=== PATIENT | female | born 1935 | race Caucasian/White ===

== ENCOUNTER 2020-08-12 10:19 | Outpatient (RCR) | payer MEDICARE, SELFPAY | END 2020-09-04 12:05 | disposition home or self-care (01) | LOC: HO.WCC 10:19 | PROVIDERS: PCP Internal Medicine; Visit Provider Physician Assistant | DX: S01.01XA Laceration without foreign body of scalp, initial encounter (principal); C44.42 Squamous cell carcinoma of skin of scalp and neck; E11.42 Type 2 diabetes mellitus with diabetic polyneuropathy; L57.0 Actinic keratosis; Z79.4 Long term (current) use of insulin | CPT/HCPCS: 11042; 11106; 99213 ==

== ENCOUNTER 2020-08-20 14:41 | Outpatient (REF) | payer MEDICARE, SELFPAY ==
[2020-08-20 15:40] LABS: MANUAL DIFF FLAG NO
[2020-08-20 15:47] LABS: Basophils Percent Auto 0.2 % (0-2); Eosinophils Absolute Auto 0.1 X10*3/uL (0.0-0.4); Eosinophils Percent Auto 1.2 % (0-4); Hematocrit 32.5 % (37-47); Hemoglobin 10.5 g/dl (12.0-16.0); Imm Gran Abs Auto 0.03 X10*3/uL (0.00-0.03); Imm Gran Pct Auto 0.4 % (0.0-0.4); Lymphocytes Absolute Auto 1.4 X10*3/uL (1.2-4.9); Mean Corpuscular HGB Conc 32.3 g/dl (31.0-35.0); Mean Corpuscular Volume 92.9 fL (80-98); Mean Platelet Volume 12.7 fL (9.4-12.3); Monocytes Absolute Auto 0.4 X10*3/uL (0.1-1.2); Monocytes Percent Auto 5.2 % (2-11); Neutrophils Absolute Auto 6.6 X10*3/uL (2.0-8.3); Platelet Count 216 X10*3/uL (160-400); Red Cell Distribution Width 13.6 % (11.0-16.0); White Blood Count 8.5 X10*3/uL (4.8-10.8)
[2020-08-20 16:14] LABS: Albumin Level 4.4 g/dL (3.5-5.0); Anion Gap 16 (12-20); Blood Urea Nitrogen 56 mg/dL (9-16); Calcium 9.8 mg/dL (8.4-10.2); Carbon Dioxide 23 mmol/L (22-29); Chloride 104 mmol/L (96-108); Estimated Glomerular Filt Rate 23; Magnesium 1.8 mg/dL (1.6-2.6); Phosphorus 2.5 mg/dL (2.7-4.5); Potassium 4.5 mmol/l (3.3-5.1); Sodium 138 mmol/L (135-145)
[2020-08-20 16:32] LABS: Vitamin D 25-OH Total 18.1 ng/mL (>30)
[2020-08-20 16:47] LABS: Glucose Urine UA 100 MG/DL (NEG); Leukocyte Esterase Urine NEG (NEG); Nitrite Urine NEG (NEG); PH 5.5 (5.0-8.0); Specific Gravity - Urine 1.015 (1.005-1.025); Urine Blood NEG (NEG); Urine Ketones NEG (NEG); Urine Protein NEG (NEG-TRACE)
[2020-08-20 16:48] LABS: Appearance Urine HAZY; Color Urine YELLOW
[2020-08-20 16:55] LABS: Bacteria Urine 1+ /LPF; RBC Urine 0 /HPF (0); Squamous Epithelial Cell Urine 1+ /LPF; WBC Urine 0 /HPF (0-4)
[2020-08-20 16:56] LABS: Renal w Reflex-LAB USE ONLY Order Verified
[2020-08-20 17:14] LABS: Microalbum/Creatinine Ratio Ur 49.1 ug/mg cr
[2020-08-20 17:43] LABS: Renal w Reflex Lab Use Only Order verified
[2020-08-20 17:55] LABS: Creatinine Urine 50.74 mg/dL; Total Protein Urine Random < 7 mg/dL (<12)
[2020-08-21 14:42] LABS: Complement C3 156 mg/dL
[2020-08-21 18:33] LABS: Calcium (PTHI) 10.2 mg/dL (8.6-10.4); PTHI 104 pg/mL (14-64)
[2020-08-22 21:47] LABS: Anti Nuclear Antibody Screen POSITIVE (NEGATIVE); Anti Nuclear Antibody Titer 1:40 titer
[2020-08-24 08:21] LABS: IgA 462 mg/dL (70-320); IgG 1021 mg/dL (600-1540); IgM 58 mg/dL (50-300)
== END 2020-08-20 14:42 | disposition home or self-care (01) ==
LOC: HO.LAB 14:41
PROVIDERS: PCP Internal Medicine; Visit Provider Internal Medicine Nephrology
DX: E11.9 Type 2 diabetes mellitus without complications (principal); R80.9 Proteinuria, unspecified; E11.21 Type 2 diabetes mellitus with diabetic nephropathy; I13.10 Hypertensive heart and chronic kidney disease without heart failure, with stage 1 through stage 4 chronic kidney disease, or unspecified chronic kidney disease; N18.30 Chronic kidney disease, stage 3 unspecified
CPT/HCPCS: 36415; 80051; 81001; 82040; 82043; 82306; 82310; 82565; 82784; 83735; 83970; 84100; 84156; 84520; 85025; 86038; 86039; 86160; 86334; 88305

== ENCOUNTER 2020-09-25 | Outpatient (REF) | payer MEDICARE, SELFPAY | END 2020-09-25 00:01 | disposition home or self-care (01) | LOC: HO.VC | PROVIDERS: Visit Provider Internal Medicine | DX: Z23 Encounter for immunization (principal) | CPT/HCPCS: 0011A ==

== ENCOUNTER 2020-10-22 | Outpatient (REF) | payer MEDICARE, SELFPAY | END 2020-10-22 00:01 | disposition home or self-care (01) | LOC: HO.VC | PROVIDERS: Visit Provider Internal Medicine | DX: Z23 Encounter for immunization (principal) | CPT/HCPCS: 0012A ==

== ENCOUNTER 2021-01-06 12:56 | Outpatient (RCR) | payer MEDICARE, SELFPAY | END 2021-04-25 12:38 | disposition home or self-care (01) | LOC: HO.WCC 12:56 | PROVIDERS: Visit Provider Physician Assistant | DX: E11.622 Type 2 diabetes mellitus with other skin ulcer (principal); I87.311 Chronic venous hypertension (idiopathic) with ulcer of right lower extremity; L97.211 Non-pressure chronic ulcer of right calf limited to breakdown of skin; E11.40 Type 2 diabetes mellitus with diabetic neuropathy, unspecified; C44.300 Unspecified malignant neoplasm of skin of unspecified part of face; Z79.4 Long term (current) use of insulin | CPT/HCPCS: 11042; 11045; 15271; 97597; 99212; Q4101; Q4196 ==

== ENCOUNTER 2021-01-29 11:24 | Outpatient (REF) | payer MEDICARE, SELFPAY ==
[2021-01-29 11:56] LABS: MANUAL DIFF FLAG NO
[2021-01-29 12:02] LABS: Basophils Percent Auto 0.3 % (0-2); Eosinophils Absolute Auto 0.2 X10*3/uL (0.0-0.4); Eosinophils Percent Auto 1.7 % (0-4); Hemoglobin 10.5 g/dl (12.0-16.0); Imm Gran Abs Auto 0.05 X10*3/uL (0.00-0.03); Imm Gran Pct Auto 0.5 % (0.0-0.4); Lymphocytes Absolute Auto 1.4 X10*3/uL (1.2-4.9); Lymphocytes Percent Auto 14.8 % (20-40); Mean Corpuscular HGB Conc 31.8 g/dl (31.0-35.0); Mean Corpuscular Hemoglobin 29.7 pg (27.0-33.0); Mean Corpuscular Volume 93.5 fL (80-98); Mean Platelet Volume 12.8 fL (9.4-12.3); Monocytes Absolute Auto 0.5 X10*3/uL (0.1-1.2); Neutrophils Absolute Auto 7.2 X10*3/uL (2.0-8.3); Neutrophils Percent Auto 77.7 % (45-73); Platelet Count 231 X10*3/uL (160-400); Red Blood Count 3.53 X10*6/uL (4.20-5.50); Red Cell Distribution Width 14.3 % (11.0-16.0); White Blood Count 9.2 X10*3/uL (4.8-10.8)
[2021-01-29 12:35] LABS: Alanine Aminotransferase 12 U/L (0-31); Albumin Level 4.1 g/dL (3.5-5.0); Alkaline Phosphatase 59 U/L (39-117); Anion Gap 16 (12-20); Aspartate Amino Transferase 22 U/L (5-31); Bilirubin Total 0.4 mg/dL (0.0-1.0); Blood Urea Nitrogen 52 mg/dL (9-16); Calcium 10.1 mg/dL (8.4-10.2); Carbon Dioxide 25 mmol/L (22-29); Chloride 105 mmol/L (96-108); Cholesterol 139 mg/dL; Estimated Average Glucose 143 mg/dL; Estimated Glomerular Filt Rate 23; Glucose Fasting 199 mg/dL (60-99); HDL Cholesterol 38 mg/dL; Hemoglobin A1c % 6.6 %; LDL Cholesterol Calculated 76 mg/dl; Potassium 4.8 mmol/L (3.3-5.1); Sodium 141 mmol/L (135-145); Total Protein 7.3 g/dL (6.5-8.0); Triglycerides 126 mg/dL
[2021-01-29 12:58] LABS: Thyroid Stimulating Hormone 0.83 uIU/mL (0.32-4.0); Vitamin D 25-OH Total 21.1 ng/mL (>30)
== END 2021-01-29 11:25 | disposition home or self-care (01) ==
LOC: HO.LAB 11:24
PROVIDERS: PCP Internal Medicine; Visit Provider Internal Medicine
DX: Z00.00 Encounter for general adult medical examination without abnormal findings (principal); E11.9 Type 2 diabetes mellitus without complications; E03.9 Hypothyroidism, unspecified
CPT/HCPCS: 36415; 80053; 80061; 82306; 83036; 84443; 85025

== ENCOUNTER 2021-02-21 12:01 | Outpatient (REF) | payer MEDICARE, SELFPAY ==
[2021-02-21 13:11] LABS: MANUAL DIFF FLAG NO
[2021-02-21 13:17] LABS: Basophils Percent Auto 0.3 % (0-2); Eosinophils Absolute Auto 0.2 X10*3/uL (0.0-0.4); Eosinophils Percent Auto 2.9 % (0-4); Hematocrit 31.8 % (37-47); Hemoglobin 10.3 g/dl (12.0-16.0); Imm Gran Abs Auto 0.03 X10*3/uL (0.00-0.03); Imm Gran Pct Auto 0.4 % (0.0-0.4); Lymphocytes Absolute Auto 1.2 X10*3/uL (1.2-4.9); Lymphocytes Percent Auto 17.2 % (20-40); Mean Corpuscular HGB Conc 32.4 g/dl (31.0-35.0); Mean Corpuscular Hemoglobin 30.4 pg (27.0-33.0); Mean Corpuscular Volume 93.8 fL (80-98); Monocytes Absolute Auto 0.3 X10*3/uL (0.1-1.2); Neutrophils Absolute Auto 5.1 X10*3/uL (2.0-8.3); Neutrophils Percent Auto 74.2 % (45-73); Platelet Count 222 X10*3/uL (160-400); Red Blood Count 3.39 X10*6/uL (4.20-5.50); Red Cell Distribution Width 14.1 % (11.0-16.0); White Blood Count 6.9 X10*3/uL (4.8-10.8)
[2021-02-21 13:42] LABS: Anion Gap 17 (12-20); Blood Urea Nitrogen 49 mg/dL (9-16); Carbon Dioxide 24 mmol/L (22-29); Chloride 103 mmol/L (96-108); Estimated Glomerular Filt Rate 22; Iron 55 mcg/dL (30-160); Magnesium 1.8 mg/dL (1.6-2.6); Percent Iron Saturation 18 % (15-50); Phosphorus 2.7 mg/dL (2.7-4.5); Potassium 4.5 mmol/L (3.3-5.1); Sodium 139 mmol/L (135-145); Total Iron Binding Capacity 307 mcg/dL (228-428); Unsaturated Iron Binding 252 ug/dL
[2021-02-21 13:59] LABS: Thyroid Stimulating Hormone 0.94 uIU/mL (0.32-4.0)
[2021-02-21 14:03] LABS: Ferritin 129 ng/mL (10-250); Vitamin D 25-OH Total 19.8 ng/mL (>30)
[2021-02-21 14:15] LABS: Glucose Urine UA NEG (NEG); Leukocyte Esterase Urine NEG (NEG); Nitrite Urine NEG (NEG); Urine Blood NEG (NEG); Urine Ketones NEG (NEG); Urine Protein NEG (NEG-TRACE)
[2021-02-21 14:18] LABS: Appearance Urine HAZY; Color Urine YELLOW
[2021-02-21 14:38] LABS: Mucus Urine 1+ /LPF; RBC Urine 0 /HPF (0); Squamous Epithelial Cell Urine 2+ /LPF; WBC Urine 0 /HPF (0-4)
[2021-02-21 14:41] LABS: Creatinine Urine 69.64 mg/dL; Microalbum/Creatinine Ratio Ur 14.3 ug/mg cr; Total Protein Urine Random < 7 mg/dL (<12)
[2021-02-21 15:00] LABS: Renal w Reflex Lab Use Only Order verified
[2021-02-25 13:37] LABS: Calcium (PTHI) 9.5 mg/dL (8.6-10.4); PTHI 133 pg/mL (14-64)
== END 2021-02-21 12:02 | disposition home or self-care (01) ==
LOC: HO.LAB 12:01
PROVIDERS: PCP Internal Medicine; Visit Provider Internal Medicine Nephrology
DX: Z00.00 Encounter for general adult medical examination without abnormal findings (principal); E11.22 Type 2 diabetes mellitus with diabetic chronic kidney disease; R80.9 Proteinuria, unspecified; E11.21 Type 2 diabetes mellitus with diabetic nephropathy; I13.10 Hypertensive heart and chronic kidney disease without heart failure, with stage 1 through stage 4 chronic kidney disease, or unspecified chronic kidney disease; N18.30 Chronic kidney disease, stage 3 unspecified; E03.9 Hypothyroidism, unspecified
CPT/HCPCS: 36415; 80051; 81001; 82040; 82043; 82306; 82310; 82565; 82728; 83540; 83735; 83970; 84100; 84155; 84156; 84443; 84520; 85025

== ENCOUNTER → 2021-05-09 11:35 | Outpatient (BNVA) | payer MEDICARE, SELFPAY | LOC: CF 05-21 13:12 | PROVIDERS: PCP Internal Medicine; Referring Provider Internal Medicine; Visit Provider Internal Medicine Cardiovascular Disease | DX: E11.59 Type 2 diabetes mellitus with other circulatory complications (principal); I15.2 Hypertension secondary to endocrine disorders; I49.5 Sick sinus syndrome; R61 Generalized hyperhidrosis | CPT/HCPCS: 93005; 99202 ==

== ENCOUNTER → 2021-05-21 13:31 | Outpatient (REF) | payer MEDICARE, SELFPAY ==
--- NOTE | 2021-05-21 13:06 | HM_ITS ---
Conclusion: Patient was monitored for total of 4 days and 17 hours Baseline numbers normal sinus rhythm with average heart rate of 82 beats per minute No sustained atrial fibrillation noted No significant pauses or bradycardia noted There were 3 short supraventricular runs, longest 4 beats at 124 beats per minute. Total of 459 PACs accounting for 0.22% of total beats currently for rare PACs Total of 17 and 20 PVCs of 2 different morphologies are cardiac was 0.82% of total beats accounting for rare PVCs No patient reported events MTDD
--- NOTE | 2021-05-21 13:06 | CA_ITS ---
Transthoracic Echocardiogram Patient (Last, First, Middle): Susan Laurent M Gender: Female Date of : 1935 Age: 85 Procedure Date: 05/21/2021 Procedure Type: Transthoracic Echocardiogram Location: OP Height: 167.64 cm Weight: 99.79 kg BSA: 2.08 m2 Heart Rate: bpm BP: 128 / 70 mmHg Renal Medicine Specialist: SHANTELLE Referring MD: Rudi Sethi MD Symptoms: E11.59 - Type 2 diabetes mellitus with other circulatory ... Study Quality: Fair ECG Rhythm: Sinus Conclusions: - The left ventricular systolic function is normal. The calculated ejection fraction is 60% by biplane method. - There is mild calcification of the aortic valve. - There is mild mitral annular calcification. Findings Left Ventricle Normal left ventricular cavity size. There is mildly increased left ventricular wall thickness. The left ventricular systolic function is normal. The calculated ejection fraction is 60% by biplane method. There is no evidence of regional wall motion abnormalities. Diastolic function is indeterminate on the basis of available data. Right Ventricle Normal right ventricular cavity size and systolic function. Atria Both atria are normal in size. Aortic Valve There is a normal trileaflet aortic valve. There is mild calcification of the aortic valve. There is no aortic valve stenosis. There is no aortic valve regurgitation. Mitral Valve There is mild mitral annular calcification. There is trace mitral valve regurgitation. There is no mitral valve stenosis. Pulmonic Valve The pulmonic valve was not well visualized. Tricuspid Valve Normal tricuspid valve structure. There is trace tricuspid valve regurgitation. The pulmonary artery systolic pressure is normal. Great Vessels The aortic annulus, sinuses of valsalva, and asc aorta are normal in size. Venous The inferior vena cava is normal in size and collapses greater than 50% with inspiration. Pericardium/Pleural There is no evidence of pericardial effusion. Prior Study Comparison No significant change compared to prior study dated: 04/07/2018. Measurements 2D Linear Measurements IVSd: 1.19 0.6-0.9/0.6-1.0 cm LVIDd: 4.11 3.9-5.3/4.2-5.9 cm LVIDd Index: 1.98 2.4-3.2/2.2-3.1 cm/m2 LVIDs: 2.79 2.0-3.6 cm LVPWd: 1.05 0.7-1.1 cm Ao Root: 3.30 2.1-3.5 cm LA Diam: 3.50 2.7-3.8/3.0-4.0 cm LAIDs Index: 1.68 1.5-2.3 cm/m2 LV Mass: 194.09 67-162/88-224 g LV Mass Index: 93.31 43-95/49-115 g/m2 LVOT Diam: 2.00 3.0+(-)1.3 cm 2D Systolic Function EF 4C: 61.40 >55% EF 2C: 53.60 >55% EF BiP: 59.90 >55% Mitral Valve E'Lateral: 7.18 E'Medial: 3.70 Aortic Valve AoV Pk Norm: 1.48 AoV Mn Norm: 1.08 AoV VTI: 0.32 AoV Pk Grad: 9.00 Aov Mn Grad: 5.00 ROSELYN Cont.VTI: 2.07 LVOT LVOT Pk Norm: 0.96 LVOT Mn Norm: 0.73 LVOT VTI: 0.21 LVOT Pk Grad: 4.00 LVOT Mn Grad: 2.00 LVOT Diam: 2.00 LVOT Area: 3.14 Diastolic Function E'Medial: 3.70 E' Laterial: 7.18 Right Ventricle TAPSE (mm): 1.80 TVS' Norm: 10.10 Tricuspid Valve TR Pk Norm: 2.38 TR Pk Grad: 23.00 RA Press: 8.00 RVSP: 31.00 Great Vessels Aorta Ao Root-2D: 3.30 2.0-3.7 cm Ao Asc: 3.30 2.1-3.4 cm Ao Arch: 3.30 Updated in Other Vendor System with Status of Final Jonathon Andrews MD electronically signed on 05/22/2021 4:14:19 PM with status of Final
== END ==
LOC: HO.CARD 13:31
PROVIDERS: PCP Internal Medicine; Visit Provider Internal Medicine Cardiovascular Disease
DX: I15.2 Hypertension secondary to endocrine disorders (principal); E11.59 Type 2 diabetes mellitus with other circulatory complications; I49.5 Sick sinus syndrome
CPT/HCPCS: 93242; 93306

== ENCOUNTER → 2021-06-05 15:03 | Outpatient (BNVA) | payer MEDICARE, SELFPAY | PROVIDERS: PCP Internal Medicine; Referring Provider Internal Medicine; Visit Provider Nurse Practitioner Family ==

== ENCOUNTER 2021-06-17 10:51 | Outpatient (REF) | payer MEDICARE, SELFPAY ==
--- NOTE | ~2021-06-17 | XR_ITS ---
EXAMINATION: XR LUMBOSACRAL SPINE CLINICAL INFORMATION: Dorsalgia. COMPARISON: 09/19/2018 TECHNIQUE: Three views of the lumbosacral spine. FINDINGS: There are 5 nonrib-bearing lumbar vertebra present. There is an old mild superior endplate compression fracture of T11. No new fracture identified. No spondylolysis or spondylolisthesis appreciated. There is osteopenia of visualized bones. There has been an increase in some anterior marginal spurring now with bridging at the L1-L2 level. There is some narrowing of the L5-S1 disc space. There is bilateral facet arthropathy L4 through S1. There is calcification of a nonaneurysmal abdominal aorta. XR/XR lumbar spine 2-3V IMPRESSION: No acute fracture, spondylolisthesis, or spondylolysis of the lumbar spine. Osteopenia. Multilevel degenerative disc disease. Facet arthropathy L4 through S1.
== END 2021-06-17 10:52 | disposition home or self-care (01) ==
LOC: HO.XRAY 10:51
PROVIDERS: PCP Internal Medicine; Visit Provider Internal Medicine
DX: M54.9 Dorsalgia, unspecified (principal)
CPT/HCPCS: 72100

== ENCOUNTER 2021-06-23 14:29 | Outpatient (REF) | payer MEDICARE, SELFPAY ==
[2021-06-23 14:47] LABS: MANUAL DIFF FLAG NO
[2021-06-23 15:56] LABS: Basophils Percent Auto 0.2 % (0-2); Eosinophils Absolute Auto 0.1 X10*3/uL (0.0-0.4); Eosinophils Percent Auto 1.7 % (0-4); Hematocrit 33.6 % (37.0-47.0); Imm Gran Abs Auto 0.03 X10*3/uL (0.00-0.03); Imm Gran Pct Auto 0.4 % (0.0-0.4); Lymphocytes Absolute Auto 1.4 X10*3/uL (1.2-4.9); Lymphocytes Percent Auto 17.4 % (20-40); Mean Corpuscular HGB Conc 32.7 g/dl (31.0-35.0); Mean Corpuscular Hemoglobin 30.3 pg (27.0-33.0); Mean Corpuscular Volume 92.6 fL (80.0-98.0); Mean Platelet Volume 12.8 fL (9.4-12.3); Monocytes Absolute Auto 0.5 X10*3/uL (0.1-1.2); Monocytes Percent Auto 5.6 % (2-11); Neutrophils Absolute Auto 6.19 x10*3/uL (2.0-8.3); Neutrophils Percent Auto 74.7 % (45-73); Platelet Count 233 X10*3/uL (160-400); Red Blood Count 3.63 X10*6/uL (4.20-5.50); Red Cell Distribution Width 14.1 % (11.0-16.0); White Blood Count 8.3 X10*3/uL (4.8-10.8)
[2021-06-23 16:28] LABS: Anion Gap 14 (12-20); Blood Urea Nitrogen 48 mg/dL (9-16); Calcium 10.2 mg/dL (8.4-10.2); Carbon Dioxide 28 mmol/L (22-29); Chloride 103 mmol/L (96-108); Estimated Glomerular Filt Rate 24; Glucose Random 114 mg/dL (60-115); Potassium 4.7 mmol/L (3.3-5.1); Sodium 140 mmol/L (135-145)
[2021-06-23 16:41] LABS: Erythrocyte Sedimentation Rate 27 MM/HR (0-20)
[2021-06-23 16:50] LABS: Thyroid Stimulating Hormone 0.77 uIU/mL (0.32-4.0)
[2021-06-23 17:26] LABS: Appearance Urine CLEAR; Color Urine YELLOW; Glucose Urine UA NEG (NEG); Leukocyte Esterase Urine NEG (NEG); Nitrite Urine NEG (NEG); Urine Blood NEG (NEG); Urine Ketones NEG (NEG); Urine Protein NEG (NEG-TRACE)
== END 2021-06-23 14:30 | disposition home or self-care (01) ==
LOC: HO.LAB 14:29
PROVIDERS: PCP Internal Medicine; Visit Provider Internal Medicine
DX: Z00.00 Encounter for general adult medical examination without abnormal findings (principal); M54.9 Dorsalgia, unspecified; R51.9 Headache, unspecified
CPT/HCPCS: 36415; 80048; 81003; 84443; 85025; 85652

== ENCOUNTER 2021-06-25 13:43 | Outpatient (REF) | payer MEDICARE, SELFPAY ==
--- NOTE | ~2021-06-25 | US_ITS ---
EXAMINATION: US DUPLEX LOWER EXTREMITY ARTERY/GRAFT LIMITED, BILATERAL CLINICAL INFORMATION: Stricture of artery COMPARISON: 11/21/2019 TECHNIQUE: Real-time ultrasound and Doppler techniques (integrating B-mode 2-D vascular images, Doppler spectral analysis and color flow Doppler imaging) were utilized to interrogate the lower extremities. FINDINGS: Right lower extremity: Common femoral artery: 212 cm/sec; multiphasic waveform Profunda artery: 185 cm/sec; multiphasic waveform Superficial femoral artery proximal: 191 cm/sec; multiphasic waveform Superficial femoral artery mid portion: 155 cm/sec; multiphasic waveform Superficial femoral artery distal: 85 cm/sec; multiphasic waveform Popliteal artery: 138 cm/sec; multiphasic waveform Posterior tibial artery: 20.2 cm/sec; monophasic waveform Left lower extremity: Common femoral artery: 126 cm/sec; multiphasic waveform Profunda artery: 74.5 cm/sec; multiphasic waveform Superficial femoral artery proximal: 120 cm/sec; multiphasic waveform Superficial femoral artery mid portion: 129 cm/sec; multiphasic waveform Superficial femoral artery distal: 76.2 cm/sec; multiphasic waveform Popliteal artery: 138 cm/sec; multiphasic waveform Posterior tibial artery: 132 cm/sec; multiphasic waveform ADDITIONAL FINDINGS: Scattered atherosclerotic plaque is seen bilaterally, similar to the prior studies. US/US arterial duplex LE IMPRESSION: Atherosclerotic disease is identified, however there is no evidence of hemodynamically significant peripheral arterial disease. Findings overall similar when compared with the prior study.
== END 2021-06-25 13:44 | disposition home or self-care (01) ==
LOC: HO.US 13:43
PROVIDERS: Visit Provider Internal Medicine
DX: I77.1 Stricture of artery (principal); I70.203 Unspecified atherosclerosis of native arteries of extremities, bilateral legs
CPT/HCPCS: 93925

== ENCOUNTER → 2021-07-08 11:05 | Outpatient (REF) | payer MEDICARE, SELFPAY ==
--- NOTE | ~2021-07-08 | NM_ITS ---
EXAMINATION: MD BONE SCAN OF THE WHOLE BODY CLINICAL INFORMATION: Dr. Mckeon year, unspecified. Patient states achy legs and some neck pain. COMPARISON: No previous bone scan is available for comparison. Radiographs of the lumbosacral spine dated 06/17/2021 are available for comparison. TECHNIQUE: Multiple gamma scintillation camera images of the whole body were performed 2.75 hours following the intravenous administration of 35 mCi Tc-99m MDP. FINDINGS: In the head, no significant abnormalities are present. In the thoracic cage and upper extremities, there is minimally increased activity in the sternoclavicular and acromioclavicular joints bilaterally. In the spine, a minimal thoracolumbar scoliosis is present with lumbar convexity to the left. There is minimally increased activity in the right posterior elements at L5-S1, probably due to facet arthropathy. In the pelvis, there is intensely increased activity in a horizontally linear focus across the lower sacrum. In the lower extremities, there is a mild diffuse increase in activity in the right knee superimposed upon this is slightly more intensely increased activity in the medial compartment. There is a focus of mildly increased activity in the medial compartment of the left knee. Multiple foci of moderate to markedly increased activity are present in the proximal feet bilaterally and both ankles, most prominently on the right and there is an additional focus somewhat more distally in the mid left foot. No other definite bony abnormalities are noted. The urinary bladder and faint visualization of both kidneys are noted. The radiographs of the lumbosacral spine dated 06/17/2021 do not show abnormalities in the sacrum that corresponds to the prominent sacral abnormalities described above on this bone scan. MD/MD bone scan whole body IMPRESSION: 1. A prominent abnormality in the lower sacrum or coccyx is present, most consistent with a recent fracture at this site. 2. A few additional nonspecific abnormalities are noted as described above and these are all likely arthritic or traumatic in etiology. None of these abnormalities is strongly suspicious for metastatic disease.
== END ==
LOC: HO.NUCMED 11:05
PROVIDERS: Visit Provider Internal Medicine
DX: M54.9 Dorsalgia, unspecified (principal)
CPT/HCPCS: 78306; A9503

== ENCOUNTER 2021-07-28 13:15 | Outpatient (REF) | payer MEDICARE, SELFPAY ==
[2021-07-28 13:40] LABS: MANUAL DIFF FLAG NO
[2021-07-28 13:54] LABS: Basophils Percent Auto 0.2 % (0-2); Eosinophils Absolute Auto 0.1 X10*3/uL (0.0-0.4); Eosinophils Percent Auto 1.5 % (0-4); Hematocrit 32.4 % (37.0-47.0); Hemoglobin 10.3 g/dl (12.0-16.0); Imm Gran Abs Auto 0.04 X10*3/uL (0.00-0.03); Imm Gran Pct Auto 0.5 % (0.0-0.4); Lymphocytes Absolute Auto 1.2 X10*3/uL (1.2-4.9); Lymphocytes Percent Auto 13.5 % (20-40); Mean Corpuscular HGB Conc 31.8 g/dl (31.0-35.0); Mean Corpuscular Hemoglobin 30.2 pg (27.0-33.0); Mean Platelet Volume 12.3 fL (9.4-12.3); Monocytes Absolute Auto 0.5 X10*3/uL (0.1-1.2); Monocytes Percent Auto 5.1 % (2-11); Neutrophils Percent Auto 79.2 % (45-73); Platelet Count 204 X10*3/uL (160-400); Red Blood Count 3.41 X10*6/uL (4.20-5.50); Red Cell Distribution Width 13.8 % (11.0-16.0); White Blood Count 8.8 X10*3/uL (4.8-10.8)
[2021-07-28 14:27] LABS: Anion Gap 15 (12-20); Blood Urea Nitrogen 43 mg/dL (9-16); Calcium 10.1 mg/dL (8.4-10.2); Carbon Dioxide 26 mmol/L (22-29); Chloride 103 mmol/L (96-108); Estimated Glomerular Filt Rate 25; Magnesium 1.7 mg/dL (1.6-2.6); Phosphorus 2.5 mg/dL (2.7-4.5); Potassium 4.7 mmol/L (3.3-5.1); Sodium 139 mmol/L (135-145)
[2021-07-28 14:48] LABS: Vitamin D 25-OH Total 19.8 ng/mL (>30)
[2021-07-28 16:59] LABS: Appearance Urine CLEAR; Color Urine YELLOW; Glucose Urine UA 250 MG/DL (NEG); Leukocyte Esterase Urine NEG (NEG); Nitrite Urine NEG (NEG); Urine Blood NEG (NEG); Urine Ketones NEG (NEG); Urine Protein NEG (NEG-TRACE)
[2021-07-28 17:06] LABS: Bacteria Urine TRACE /LPF; RBC Urine 0-2 /HPF (0); Squamous Epithelial Cell Urine 1+ /LPF; WBC Urine 0-2 /HPF (0-4)
[2021-07-28 17:11] LABS: Creatinine Urine 33.49 mg/dL; Microalbum/Creatinine Ratio Ur 71.6 ug/mg cr; Total Protein Urine Random < 7 mg/dL (<12)
[2021-07-29 15:56] LABS: Calcium (PTHI) 10.1 mg/dL (8.6-10.4); PTHI 97 pg/mL (14-64)
== END 2021-07-28 13:16 | disposition home or self-care (01) ==
LOC: HO.LAB 13:15
PROVIDERS: PCP Internal Medicine; Visit Provider Internal Medicine Nephrology
DX: I11.0 Hypertensive heart disease with heart failure (principal); N18.4 Chronic kidney disease, stage 4 (severe)
CPT/HCPCS: 36415; 80051; 81001; 82040; 82043; 82306; 82310; 82565; 83735; 83970; 84100; 84156; 84520; 85025; 87086

== ENCOUNTER 2021-10-31 09:50 | Outpatient (REF) | payer MEDICARE, SELFPAY ==
[2021-10-31 10:19] LABS: MANUAL DIFF FLAG NO
[2021-10-31 10:27] LABS: Basophils Percent Auto 0.3 % (0-2); Eosinophils Absolute Auto 0.2 X10*3/uL (0.0-0.4); Eosinophils Percent Auto 2.4 % (0-4); Hematocrit 34.2 % (37.0-47.0); Hemoglobin 10.7 g/dl (12.0-16.0); Imm Gran Abs Auto 0.02 X10*3/uL (0.00-0.03); Imm Gran Pct Auto 0.3 % (0.0-0.4); Lymphocytes Absolute Auto 1.8 X10*3/uL (1.2-4.9); Lymphocytes Percent Auto 22.3 % (20-40); Mean Corpuscular HGB Conc 31.3 g/dl (31.0-35.0); Mean Corpuscular Hemoglobin 29.7 pg (27.0-33.0); Monocytes Absolute Auto 0.5 X10*3/uL (0.1-1.2); Monocytes Percent Auto 5.9 % (2-11); Neutrophils Absolute Auto 5.5 x10*3/uL (2.0-8.3); Neutrophils Percent Auto 68.8 % (45-73); Platelet Count 229 X10*3/uL (160-400); Red Cell Distribution Width 13.7 % (11.0-16.0)
[2021-10-31 11:10] LABS: Alanine Aminotransferase 16 U/L (0-31); Albumin Level 4.2 g/dL (3.5-5.0); Alkaline Phosphatase 64 U/L (39-117); Anion Gap 16 (12-20); Aspartate Amino Transferase 21 U/L (5-31); Bilirubin Total 0.5 mg/dL (0.0-1.0); Blood Urea Nitrogen 69 mg/dL (9-16); Calcium 10.4 mg/dL (8.4-10.2); Carbon Dioxide 26 mmol/L (22-29); Chloride 105 mmol/L (96-108); Estimated Glomerular Filt Rate 22; Glucose Fasting 112 mg/dL (60-99); Potassium 4.7 mmol/L (3.3-5.1); Sodium 142 mmol/L (135-145); Total Protein 7.4 g/dL (6.5-8.0); Uric Acid 8.2 mg/dL (2.4-5.7)
[2021-10-31 11:15] LABS: Estimated Average Glucose 140 mg/dL; Hemoglobin A1C 140.0415 umol/L; Hemoglobin A1c % 6.5 %
[2021-10-31 11:25] LABS: Thyroid Stimulating Hormone 1.15 uIU/mL (0.32-4.0)
== END 2021-10-31 09:51 | disposition home or self-care (01) ==
LOC: HO.LAB 09:50
PROVIDERS: PCP Internal Medicine; Visit Provider Internal Medicine
DX: Z00.00 Encounter for general adult medical examination without abnormal findings (principal); Z13.0 Encounter for screening for diseases of the blood and blood-forming organs and certain disorders involving the immune mechanism; M10.9 Gout, unspecified; E11.9 Type 2 diabetes mellitus without complications
CPT/HCPCS: 36415; 80053; 83036; 84443; 84550; 85025

== ENCOUNTER 2022-01-21 13:55 | Outpatient (RCR) | payer MEDICARE, MEDICAID, SELFPAY | END 2022-06-05 14:23 | disposition home or self-care (01) | LOC: HO.WCC 13:55 | PROVIDERS: PCP Internal Medicine; Visit Provider Surgery | DX: E11.622 Type 2 diabetes mellitus with other skin ulcer (principal); L97.812 Non-pressure chronic ulcer of other part of right lower leg with fat layer exposed; I87.331 Chronic venous hypertension (idiopathic) with ulcer and inflammation of right lower extremity; E11.42 Type 2 diabetes mellitus with diabetic polyneuropathy; Z79.4 Long term (current) use of insulin | CPT/HCPCS: 11042; 11045; 97597; 99212 ==

== ENCOUNTER 2022-01-27 14:11 | Outpatient (REF) | payer MEDICARE, SELFPAY ==
[2022-01-27 14:45] LABS: MANUAL DIFF FLAG NO
[2022-01-27 15:17] LABS: Creatinine Urine 65.68 mg/dL; Microalbum/Creatinine Ratio Ur 28.9 ug/mg cr; Total Protein Urine Random < 7 mg/dL (<12)
[2022-01-27 15:22] LABS: Basophils Percent Auto 0.5 % (0-2); Eosinophils Absolute Auto 0.2 X10*3/uL (0.0-0.4); Eosinophils Percent Auto 2.3 % (0-4); Hemoglobin 10.4 g/dl (12.0-16.0); Imm Gran Abs Auto 0.04 X10*3/uL (0.00-0.03); Imm Gran Pct Auto 0.5 % (0.0-0.4); Lymphocytes Absolute Auto 1.7 X10*3/uL (1.2-4.9); Lymphocytes Percent Auto 21.6 % (20-40); Mean Corpuscular HGB Conc 32.5 g/dl (31.0-35.0); Mean Corpuscular Volume 92.2 fL (80.0-98.0); Mean Platelet Volume 12.7 fL (9.4-12.3); Monocytes Absolute Auto 0.4 X10*3/uL (0.1-1.2); Monocytes Percent Auto 5.4 % (2-11); Neutrophils Absolute Auto 5.5 x10*3/uL (2.0-8.3); Neutrophils Percent Auto 69.7 % (45-73); Platelet Count 242 X10*3/uL (160-400); Red Blood Count 3.47 X10*6/uL (4.20-5.50); Red Cell Distribution Width 13.8 % (11.0-16.0); White Blood Count 7.8 X10*3/uL (4.8-10.8)
[2022-01-27 15:41] LABS: Albumin Level 4.2 g/dL (3.5-5.0); Anion Gap 17 (12-20); Blood Urea Nitrogen 53 mg/dL (9-16); Calcium 10.1 mg/dL (8.4-10.2); Carbon Dioxide 23 mmol/L (22-29); Chloride 102 mmol/L (96-108); Estimated Glomerular Filt Rate 24; Glucose Random 162 mg/dL (60-115); Magnesium 1.8 mg/dL (1.6-2.6); Phosphorus 2.6 mg/dL (2.7-4.5); Potassium 4.4 mmol/L (3.3-5.1); Sodium 138 mmol/L (135-145)
[2022-01-27 16:05] LABS: Vitamin D 25-OH Total 26.1 ng/mL (>30)
[2022-01-28 15:35] LABS: Calcium (PTHI) 10.3 mg/dL (8.6-10.4); PTHI 83 pg/mL (16-77)
== END 2022-01-27 14:12 | disposition home or self-care (01) ==
LOC: HO.LAB 14:11
PROVIDERS: PCP Internal Medicine; Visit Provider Internal Medicine Nephrology
DX: I12.9 Hypertensive chronic kidney disease with stage 1 through stage 4 chronic kidney disease, or unspecified chronic kidney disease (principal); N18.4 Chronic kidney disease, stage 4 (severe); E11.22 Type 2 diabetes mellitus with diabetic chronic kidney disease; N25.0 Renal osteodystrophy; E11.21 Type 2 diabetes mellitus with diabetic nephropathy
CPT/HCPCS: 36415; 80048; 81003; 82040; 82043; 82306; 83735; 83970; 84100; 84156; 85025

== ENCOUNTER 2022-05-18 09:48 | Outpatient (REF) | payer MEDICARE, SELFPAY ==
[2022-05-18 11:05] LABS: Estimated Average Glucose 128 mg/dL; Hemoglobin A1c % 6.1 %
[2022-05-18 11:24] LABS: Cholesterol 156 mg/dL; Glucose Fasting 152 mg/dL (60-99); HDL Cholesterol 39 mg/dL; LDL Cholesterol Calculated 92 mg/dl; Triglycerides 125 mg/dL; Uric Acid 6.9 mg/dL (2.4-5.7)
== END 2022-05-18 09:49 | disposition home or self-care (01) ==
LOC: HO.LAB 09:48
PROVIDERS: PCP Internal Medicine; Visit Provider Internal Medicine
DX: M10.9 Gout, unspecified (principal); E11.65 Type 2 diabetes mellitus with hyperglycemia
CPT/HCPCS: 36415; 80061; 82947; 83036; 84550

== ENCOUNTER 2022-07-31 12:21 | Outpatient (REF) | payer MEDICARE, SELFPAY ==
[2022-07-31 12:47] LABS: MANUAL DIFF FLAG NO
[2022-07-31 13:12] LABS: Basophils Percent Auto 0.3 % (0-2); Eosinophils Absolute Auto 0.2 X10*3/uL (0.0-0.4); Eosinophils Percent Auto 2.9 % (0-4); Hematocrit 31.1 % (37.0-47.0); Hemoglobin 10.1 g/dl (12.0-16.0); Imm Gran Abs Auto 0.02 X10*3/uL (0.00-0.03); Imm Gran Pct Auto 0.3 % (0.0-0.4); Lymphocytes Absolute Auto 1.4 X10*3/uL (1.2-4.9); Lymphocytes Percent Auto 21.4 % (20-40); Mean Corpuscular HGB Conc 32.5 g/dl (31.0-35.0); Mean Corpuscular Hemoglobin 30.4 pg (27.0-33.0); Mean Corpuscular Volume 93.7 fL (80.0-98.0); Mean Platelet Volume 12.8 fL (9.4-12.3); Monocytes Absolute Auto 0.5 X10*3/uL (0.1-1.2); Monocytes Percent Auto 7.7 % (2-11); Neutrophils Absolute Auto 4.4 x10*3/uL (2.0-8.3); Neutrophils Percent Auto 67.4 % (45-73); Platelet Count 202 X10*3/uL (160-400); Red Blood Count 3.32 X10*6/uL (4.20-5.50); Red Cell Distribution Width 13.5 % (11.0-16.0); White Blood Count 6.5 X10*3/uL (4.8-10.8)
[2022-07-31 13:28] LABS: Appearance Urine Clear; Color Urine Yellow; Glucose Urine UA Negative (Negative); Leukocyte Esterase Urine Negative (Negative); Nitrite Urine Negative (Negative); Specific Gravity - Urine 1.015 (1.005-1.025); Urine Blood Negative (Negative); Urine Ketones Negative (Negative); Urine Protein Negative (Neg-Trace)
[2022-07-31 14:15] LABS: Albumin Level 4.1 g/dL (3.5-5.0); Anion Gap 17 (12-20); Blood Urea Nitrogen 62 mg/dL (9-16); Calcium 9.4 mg/dL (8.4-10.2); Carbon Dioxide 20 mmol/L (22-29); Chloride 103 mmol/L (96-108); Estimated Glomerular Filt Rate 18; Magnesium 1.8 mg/dL (1.6-2.6); Phosphorus 2.5 mg/dL (2.7-4.5); Potassium 4.6 mmol/L (3.3-5.1); Sodium 135 mmol/L (135-145)
[2022-07-31 14:36] LABS: Vitamin D 25-OH Total 25.6 ng/mL (>30)
[2022-07-31 14:38] LABS: Creatinine Urine 72.44 mg/dL; Microalbum/Creatinine Ratio Ur 13.8 ug/mg cr; Total Protein Urine Random < 7 mg/dL (<12)
[2022-08-04 15:13] LABS: Calcium (PTHI) 9.5 mg/dL (8.6-10.4); PTHI 154 pg/mL (16-77)
== END 2022-07-31 12:22 | disposition home or self-care (01) ==
LOC: HO.LAB 12:21
PROVIDERS: PCP Internal Medicine; Visit Provider Internal Medicine Nephrology
DX: Z20.822 Contact with and (suspected) exposure to COVID-19 (principal); I12.9 Hypertensive chronic kidney disease with stage 1 through stage 4 chronic kidney disease, or unspecified chronic kidney disease; E11.22 Type 2 diabetes mellitus with diabetic chronic kidney disease; N18.4 Chronic kidney disease, stage 4 (severe); E11.21 Type 2 diabetes mellitus with diabetic nephropathy; N25.0 Renal osteodystrophy
CPT/HCPCS: 36415; 80051; 81003; 82040; 82043; 82306; 82310; 82565; 83735; 83970; 84100; 84156; 84520; 85025; 87086; 87635; C9803

== ENCOUNTER 2022-07-31 15:52 | Outpatient (REF) | payer MEDICARE, SELFPAY ==
[2022-07-31 16:42] LABS: COVID-19 Test Negative (Negative); IDNOW Serial# 55D5AD1C
== END 2022-07-31 15:53 | disposition home or self-care (01) ==
LOC: HO.LAB 15:52
PROVIDERS: Visit Provider Internal Medicine
DX: Z20.822 Contact with and (suspected) exposure to COVID-19 (principal)
CPT/HCPCS: 87635; C9803

== ENCOUNTER 2022-08-10 13:55 | Outpatient (REF) | payer MEDICARE, SELFPAY ==
[2022-08-10 14:33] LABS: COVID-19 Test Positive (Negative); IDNOW Serial# BCCEAD1C
== END 2022-08-10 13:56 | disposition home or self-care (01) ==
LOC: HO.LAB 13:55
PROVIDERS: Visit Provider Internal Medicine
DX: Z20.822 Contact with and (suspected) exposure to COVID-19 (principal)
CPT/HCPCS: 87635; C9803

== ENCOUNTER 2022-08-19 15:31 | Outpatient (REF) | payer MEDICARE, SELFPAY ==
[2022-08-19 16:19] LABS: COVID-19 Test Negative (Negative); IDNOW Serial# 55D5AD1C
== END 2022-08-19 15:32 | disposition home or self-care (01) ==
LOC: HO.LAB 15:31
PROVIDERS: Visit Provider Internal Medicine
DX: Z20.822 Contact with and (suspected) exposure to COVID-19 (principal)
CPT/HCPCS: 87635; C9803

== ENCOUNTER 2022-11-30 10:08 | Outpatient (REF) | payer MEDICARE, SELFPAY ==
[2022-11-30 10:29] LABS: MANUAL DIFF FLAG NO
[2022-11-30 11:46] LABS: Basophils Percent Auto 0.5 % (0-2); Eosinophils Absolute Auto 0.2 X10*3/uL (0.0-0.4); Hematocrit 33.1 % (37.0-47.0); Hemoglobin 10.7 g/dl (12.0-16.0); Imm Gran Abs Auto 0.02 X10*3/uL (0.00-0.03); Imm Gran Pct Auto 0.4 % (0.0-0.4); Lymphocytes Absolute Auto 1.7 X10*3/uL (1.2-4.9); Lymphocytes Percent Auto 29.2 % (20-40); Mean Corpuscular HGB Conc 32.3 g/dl (31.0-35.0); Mean Corpuscular Hemoglobin 30.4 pg (27.0-33.0); Mean Platelet Volume 13.1 fL (9.4-12.3); Monocytes Absolute Auto 0.4 X10*3/uL (0.1-1.2); Monocytes Percent Auto 6.2 % (2-11); Neutrophils Absolute Auto 3.5 x10*3/uL (2.0-8.3); Neutrophils Percent Auto 60.7 % (45-73); Platelet Count 204 X10*3/uL (160-400); Red Blood Count 3.52 X10*6/uL (4.20-5.50); Red Cell Distribution Width 13.3 % (11.0-16.0); White Blood Count 5.7 X10*3/uL (4.8-10.8)
[2022-11-30 11:57] LABS: Estimated Average Glucose 128 mg/dL; Hemoglobin A1c % 6.1 %
[2022-11-30 12:17] LABS: Alanine Aminotransferase 22 U/L (0-31); Albumin Level 4.2 g/dL (3.5-5.0); Alkaline Phosphatase 54 U/L (39-117); Anion Gap 17 (12-20); Aspartate Amino Transferase 28 U/L (5-31); Bilirubin Total 0.5 mg/dL (0.0-1.0); Blood Urea Nitrogen 54 mg/dL (9-16); Carbon Dioxide 26 mmol/L (22-29); Chloride 106 mmol/L (96-108); Cholesterol 171 mg/dL; Estimated Glomerular Filt Rate 21; Glucose Fasting 130 mg/dL (60-99); HDL Cholesterol 40 mg/dL; LDL Cholesterol Calculated 101 mg/dl; Sodium 144 mmol/L (135-145); Total Protein 6.9 g/dL (6.5-8.0); Triglycerides 151 mg/dL
[2022-11-30 12:28] LABS: Syphilis Screen Nonreactive (Nonreactive)
== END 2022-11-30 10:09 | disposition home or self-care (01) ==
LOC: HO.LAB 10:08
PROVIDERS: PCP Internal Medicine; Visit Provider Internal Medicine
DX: N28.9 Disorder of kidney and ureter, unspecified (principal); E03.9 Hypothyroidism, unspecified; E78.5 Hyperlipidemia, unspecified; R73.9 Hyperglycemia, unspecified; D64.9 Anemia, unspecified; Z20.2 Contact with and (suspected) exposure to infections with a predominantly sexual mode of transmission
CPT/HCPCS: 36415; 80053; 80061; 83036; 84443; 85025; 86780

== ENCOUNTER 2023-01-26 15:06 | Outpatient (REF) | payer MEDICARE, SELFPAY ==
[2023-01-26 15:27] LABS: MANUAL DIFF FLAG NO
[2023-01-26 17:14] LABS: Basophils Percent Auto 0.4 % (0-2); Eosinophils Absolute Auto 0.1 X10*3/uL (0.0-0.4); Eosinophils Percent Auto 1.5 % (0-4); Hematocrit 31.7 % (37.0-47.0); Hemoglobin 10.3 g/dl (12.0-16.0); Imm Gran Abs Auto 0.04 X10*3/uL (0.00-0.03); Imm Gran Pct Auto 0.4 % (0.0-0.4); Lymphocytes Absolute Auto 1.7 X10*3/uL (1.2-4.9); Lymphocytes Percent Auto 18.2 % (20-40); Mean Corpuscular HGB Conc 32.5 g/dl (31.0-35.0); Mean Corpuscular Hemoglobin 31.1 pg (27.0-33.0); Mean Corpuscular Volume 95.8 fL (80.0-98.0); Mean Platelet Volume 13.2 fL (9.4-12.3); Monocytes Absolute Auto 0.5 X10*3/uL (0.1-1.2); Monocytes Percent Auto 5.3 % (2-11); Neutrophils Absolute Auto 6.8 x10*3/uL (2.0-8.3); Neutrophils Percent Auto 74.2 % (45-73); Platelet Count 210 X10*3/uL (160-400); Red Blood Count 3.31 X10*6/uL (4.20-5.50); Red Cell Distribution Width 13.3 % (11.0-16.0); White Blood Count 9.1 X10*3/uL (4.8-10.8)
[2023-01-26 17:38] LABS: Anion Gap 17 (12-20); Blood Urea Nitrogen 58 mg/dL (9-16); Calcium 10.3 mg/dL (8.4-10.2); Carbon Dioxide 24 mmol/L (22-29); Chloride 105 mmol/L (96-108); Estimated Glomerular Filt Rate 23; Potassium 4.9 mmol/L (3.3-5.1); Sodium 141 mmol/L (135-145)
== END 2023-01-26 15:07 | disposition home or self-care (01) ==
LOC: HO.LAB 15:06
PROVIDERS: PCP Internal Medicine; Visit Provider Internal Medicine Nephrology
DX: E11.22 Type 2 diabetes mellitus with diabetic chronic kidney disease (principal); N18.4 Chronic kidney disease, stage 4 (severe)
CPT/HCPCS: 36415; 80051; 82310; 82565; 84520; 85025

== ENCOUNTER 2023-02-11 12:36 | Outpatient (RCR) | payer MEDICARE, SELFPAY ==
--- NOTE | ~2023-02-11 | XR_ITS ---
EXAMINATION: XR FOOT, RIGHT CLINICAL INFORMATION: Fifth metatarsal wound; pathology confirmed right fifth metatarsal head osteomyelitis; some necrotic, extruded bone fragments were removed at dressing changes. COMPARISON: Right foot radiographs dated 03/23/2023; CT right foot dated 03/24/2023. TECHNIQUE: AP, lateral, and oblique views of the right foot. FINDINGS: Bony mineralization is normal. There is a bony defect seen involving the former head and neck of the right fifth metatarsal bone. The residual distal fifth metatarsal shaft margin appears relatively sharp. A small residual osseous fragment is at the distal metatarsal shaft border, with sharp margins. There is an adjacent soft tissue wound, with overlapping radiodense material, possibly topical ointment. There is marked osteoarthritic change of the first metatarsophalangeal joint, and mild osteoarthritic change is seen of the second metatarsophalangeal joint. There is a hallux valgus and metatarsus adductus configuration. There are degenerative changes of the midfoot. There is chronic periosteal thickening of the fourth and fifth proximal metatarsal shafts. No acute fracture, dislocation or right ankle joint effusion is seen. Boehler's angle is normal. There are are small posterior and plantar calcaneal spurs. No soft tissue gas or foreign body is seen. There are atherosclerotic calcifications and calcifications related to venous insufficiency. XR/XR foot RT min 3V IMPRESSION: There are findings consistent with advanced osteomyelitis of the distal fifth metatarsal bone, with absence of the distal right fifth metatarsal head and neck. Per history, some necrotic, excluded bone fragments were removed from the wound with dressing changes. There is adjacent soft tissue ulceration, and there appears to be radiodense topical material applied to the adjacent skin. Findings were reviewed with Dr. Caro Frederick on 06/17/2023.
== END 2023-07-06 08:00 | disposition home or self-care (01) ==
LOC: HO.WCC 12:36
PROVIDERS: PCP Internal Medicine; Visit Provider Surgery
DX: E11.621 Type 2 diabetes mellitus with foot ulcer (principal); L97.512 Non-pressure chronic ulcer of other part of right foot with fat layer exposed; E11.22 Type 2 diabetes mellitus with diabetic chronic kidney disease; I12.9 Hypertensive chronic kidney disease with stage 1 through stage 4 chronic kidney disease, or unspecified chronic kidney disease; E11.42 Type 2 diabetes mellitus with diabetic polyneuropathy; N18.4 Chronic kidney disease, stage 4 (severe); Z79.4 Long term (current) use of insulin; Z79.2 Long term (current) use of antibiotics
CPT/HCPCS: 11042; 11043; 11044; 17250; 73630; 87070; 87073; 87077; 87186; 87205; 88304; 88305; 88311; 97597; 99212; 99213

== ENCOUNTER 2023-02-22 15:15 | Outpatient (REF) | payer MEDICARE, SELFPAY | END 2023-02-22 15:16 | disposition home or self-care (01) | LOC: HO.LAB 15:15 | PROVIDERS: PCP Internal Medicine; Visit Provider Internal Medicine | DX: E61.1 Iron deficiency (principal) | CPT/HCPCS: 36415; 83540 ==

== ENCOUNTER 2023-03-23 13:48 | Inpatient (IN) | payer MEDICARE, SELFPAY ==
--- NOTE | ~2023-03-23 | US_ITS ---
EXAMINATION: Noninvasive assessment of the bilateral lower extremities with ARTERIAL DUPLEX and ANKLE BRACHIAL INDICES (ABIs). CLINICAL INFORMATION: Peripheral vascular disease TECHNIQUE: Duplex Doppler techniques with waveform analysis and measurement of velocities in the bilateral common femoral, profunda femoris, superficial femoral, popliteal and tibial arteries were performed. Additionally, ankle pulse volume recordings, ankle pressure measurements and ankle brachial indices were obtained of the lower extremity arterial system bilaterally. The study was performed only at rest. COMPARISON: 06/25/2021 FINDINGS: DIRECT DUPLEX DOPPLER FINDINGS: RIGHT LEG: Common femoral artery: 195 cm/s, phasicity: Biphasic Profunda femoris artery: 122 cm/s, phasicity: Biphasic Superficial femoral artery (proximal): 213 cm/s, phasicity: Triphasic Superficial femoral artery (mid): 220 cm/s, phasicity: Biphasic Superficial femoral artery (distal): 120 cm/s, phasicity: Triphasic Popliteal artery: 161 cm/s, phasicity: Biphasic Posterior tibial artery: 187 cm/s, phasicity: Monophasic LEFT LEG: Common femoral artery: 182 cm/s, phasicity: Biphasic Profunda femoris artery: 103 cm/s, phasicity: Biphasic Superficial femoral artery (proximal): 132 cm/s, phasicity: Biphasic Superficial femoral artery (mid): 166 cm/s, phasicity: Biphasic Superficial femoral artery (distal): 117 cm/s, phasicity: Biphasic Popliteal artery: 133 cm/s, phasicity: Biphasic Posterior tibial artery: 103 cm/s, phasicity: Biphasic ANKLE-BRACHIAL INDEX: Right: 0.97? Left: 1.15 ANKLE PRESSURES: Right: PT 125, DP 139 Left: PT?165, DP?124 ANKLE PVR WAVEFORMS: Right: Normal Left: Normal US/US arterial duplex LE BI IMPRESSION: Right leg: Normal ankle brachial index. Patent arterial flow without significant stenosis or occlusion Left leg: Normal ankle brachial index. Patent arterial flow without significant stenosis or occlusion AGUSTIN Reference: - >1.4 = calcified vessels - 0.9 - 1.4 = normal - no significant arterial disease - 0.7 - 0.89 = mild peripheral arterial disease - 0.51 - 0.69 = moderate peripheral arterial disease - ? 0.50 = severe peripheral arterial disease - < .30 = critical arterial disease
--- NOTE | ~2023-03-23 | XR_ITS ---
EXAMINATION: XR FOOT, RIGHT CLINICAL INFORMATION: Infection, rule out osteomyelitis. COMPARISON: None available. TECHNIQUE: AP, lateral, and oblique views of the right foot. FINDINGS: There is a hallux valgus deformity. Chronic deformity seen in the distal first metatarsal. Moderate first metatarsophalangeal degenerative joint changes are seen. Moderate to severe tarsometatarsal degenerative joint changes are seen. A soft tissue wound is seen lateral to the fifth metatarsophalangeal joint. No overt acute underlying osseous abnormality. The tarsal bones are normally aligned. Very small plantar and retrocalcaneal spurs are noted. Mild to moderate soft tissue swelling. Mild to moderate atherosclerosis. XR/XR foot RT min 3V IMPRESSION: 1. Soft tissue wound lateral to the fifth metatarsophalangeal joint without overt acute underlying osseous abnormality. 2. Hallux valgus deformity and degenerative joint changes suggesting osteoarthritis. Chronic deformity in the distal first metatarsal. 3. Mild to moderate soft tissue swelling.
--- NOTE | ~2023-03-23 | CT_ITS ---
EXAMINATION: CT FOOT WITHOUT CONTRAST, RIGHT CLINICAL INFORMATION: Osteomyelitis. COMPARISON: X-ray 03/23/2023 TECHNIQUE: Axial imaging of the foot. Sagittal and coronal reconstructions. No contrast. This CT examination was performed using dose optimization techniques as appropriate, variously including the following: *Automated exposure control *Adjustment of mA and/or kV according to patient size (this includes techniques or standardized protocols for targeted exams where dose is matched to indication/reason for exam; i.e. extremities or head) *Use of iterative reconstruction technique DLP: 178 mGy-cm FINDINGS: Soft tissue wound is seen plantar/lateral to the 5th MTP joint. Underlying soft tissue swelling and subcutaneous stranding could reflect edema or cellulitis. No loculated fluid collections identified in this non-contrast CT. No definite erosive or destructive changes identified in the underlying distal 5th metatarsal/MTP joint to suggest definite osteomyelitis. Hallux valgus deformity. 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 Chronic deformity seen of the distal 1st metatarsal. Lateral angulation at the 2nd and 3rd MTP joints. Scattered mild arthritis in some of the IP joints of the toes. There is arthritis in the midfoot. This includes moderate-severe tarsometatarsal joint arthritis. Moderate naviculocuneiform arthritis. Mild-moderate talocrural joint arthritis. Mild talonavicular arthritis. Chronic-appearing ossifications adjacent to the medial and lateral malleolus. No acute fractures identified. There is a moderate circumferential soft tissue swelling and subcutaneous edema of the ankle and foot. CT/CT foot RT wo IV con IMPRESSION: 1. Soft tissue wound plantar/lateral to the 5th MTP joint. Soft tissue swelling, with edema/cellulitis. No loculated or drainable fluid collection is identified. 2. No CT evidence of definite erosive or destructive changes in the underlying distal 5th metatarsal/MTP joint to suggest definite osteomyelitis. Early changes of osteomyelitis may not be evident. Clinically correlate. Further evaluation with MRI without and with contrast, WBC bone scan as clinically warranted. Recommend ongoing clinical management and followup, with followup imaging for reassessment as clinically warranted. 3. Chronic deformity of the distal 1st metatarsal. Hallux valgus and severe 1st MTP arthritis. 4. Additional arthritis as detailed above. 5. Circumferential soft tissue swelling and subcutaneous edema.
--- NOTE | ~2023-03-23 | IR_ITS ---
PROCEDURE: IR INSERTION OF CENTRAL VENOUS CATHETER CLINICAL INFORMATION: Osteomyelitis of the foot. Needs long-term IV antibiotics. COMPARISON: None available. TECHNIQUE: Following explaining ultrasound fluoroscopy-guided placement of right Ma catheter procedure, benefits and risk, a written consent was obtained. Patient was placed supine on fluoroscopy table in angiography suite and preliminary ultrasound imaging to the right neck was performed. An optimal site was selected along the right neck for puncture of right jugular vein. The site marked was cleaned and draped in usual sterile manner. 1% lidocaine was injected puncture site. A single wall needle was advanced from the skin into the jugular vein under sterile ultrasound guidance. After observing venous return a thin guidewire was placed into the SVC and the needle withdrawn. Over the guidewire a 5 Bulgarian dilator with sheath was placed and both the guidewire and the sheath was anchored to the skin with hemostats. Approximately 1 gauze length from the right neck incision along the right anterior chest wall 1% lidocaine with epinephrine was injected. Also 1% lidocaine was injected and a track from the right anterior chest wall to the right neck incision subcutaneous variously. A small skin incision was performed along the right anterior chest wall. A tunneler attached to the Ma catheter was then bluntly advanced from the anterior chest wall incision to the right neck incision. The tunneler was then pulled through the right neck incision and so was the catheter. The catheter was sized and accordingly to the size measured. At the right neck incision a thin guidewire was removed and a longer 0.028 inch guidewire was advanced through the dilator into the IVC and the initial dilator was supplemented with a 5 Bulgarian peel-away sheath and the dilator. The dilator and the peel-away sheath and the guidewire were removed. The-sized Ma catheter was then advanced through the peel-away sheath into the SVC and the peel-away sheath was removed. A single image was obtained documenting the position of the catheter in the mid SVC. Both ports of the catheter were flushed with flushed with saline followed by heparin insertion.. All elements of maximal sterile barrier technique followed including use of cap, mask, sterile gown, sterile gloves, a sterile full body drape and hand hygiene. Also followed skin preparation with 2% chlorhexidine for cutaneous antisepsis, and sterile ultrasound preparation with sterile gel and probe cover when applicable. FINDINGS: On preliminary ultrasound imaging and images obtained there is widely patent Right jugular vein. A 24 cm long dual lumen 5 Bulgarian Ma catheter was inserted with its tip in mid SVC. No immediate complication seen. IR/IR cvc insert non tunnel IMPRESSION: Successful fluoroscopy and ultrasound-guided placement of a 34 Bulgarian long 5 Bulgarian dual-lumen Ma catheter with its tip in mid SVC. The catheter is ready for use. Fluoroscopy time: 0.6 minutes. Dose area product: 184 Gycm2. Images: 2.
--- NOTE | ~2023-03-23 | US_ITS ---
EXAMINATION: Noninvasive assessment of the bilateral lower extremities with ARTERIAL DUPLEX and ANKLE BRACHIAL INDICES (ABIs). CLINICAL INFORMATION: Peripheral vascular disease TECHNIQUE: Duplex Doppler techniques with waveform analysis and measurement of velocities in the bilateral common femoral, profunda femoris, superficial femoral, popliteal and tibial arteries were performed. Additionally, ankle pulse volume recordings, ankle pressure measurements and ankle brachial indices were obtained of the lower extremity arterial system bilaterally. The study was performed only at rest. COMPARISON: 06/25/2021 FINDINGS: DIRECT DUPLEX DOPPLER FINDINGS: RIGHT LEG: Common femoral artery: 195 cm/s, phasicity: Biphasic Profunda femoris artery: 122 cm/s, phasicity: Biphasic Superficial femoral artery (proximal): 213 cm/s, phasicity: Triphasic Superficial femoral artery (mid): 220 cm/s, phasicity: Biphasic Superficial femoral artery (distal): 120 cm/s, phasicity: Triphasic Popliteal artery: 161 cm/s, phasicity: Biphasic Posterior tibial artery: 187 cm/s, phasicity: Monophasic LEFT LEG: Common femoral artery: 182 cm/s, phasicity: Biphasic Profunda femoris artery: 103 cm/s, phasicity: Biphasic Superficial femoral artery (proximal): 132 cm/s, phasicity: Biphasic Superficial femoral artery (mid): 166 cm/s, phasicity: Biphasic Superficial femoral artery (distal): 117 cm/s, phasicity: Biphasic Popliteal artery: 133 cm/s, phasicity: Biphasic Posterior tibial artery: 103 cm/s, phasicity: Biphasic ANKLE-BRACHIAL INDEX: Right: 0.97? Left: 1.15 ANKLE PRESSURES: Right: PT 125, DP 139 Left: PT?165, DP?124 ANKLE PVR WAVEFORMS: Right: Normal Left: Normal US/US AGUSTIN complete IMPRESSION: Right leg: Normal ankle brachial index. Patent arterial flow without significant stenosis or occlusion Left leg: Normal ankle brachial index. Patent arterial flow without significant stenosis or occlusion AGUSTIN Reference: - >1.4 = calcified vessels - 0.9 - 1.4 = normal - no significant arterial disease - 0.7 - 0.89 = mild peripheral arterial disease - 0.51 - 0.69 = moderate peripheral arterial disease - ? 0.50 = severe peripheral arterial disease - < .30 = critical arterial disease
[2023-03-23 14:05] VITALS: BP 150/69; PULSE 100; RESP 16; TEMP 35.7; O2SAT 100; BMI 36.3
--- NOTE | 2023-03-23 14:07 | ED.GENADULT ---
[facility] - General Adult General Chief complaint: Extremity Problem Stated complaint: Infected R foot Time Seen by Provider: 03/23/23 15:58 Source: patient Mode of arrival: ambulatory History of Present Illness HPI narrative: 87-year-old female with longstanding diabetes and is referred in from the wound care center for nonhealing wound noted at the right 5th lateral MTP with surrounding erythema extending proximally into the right lower extremity. Patient reports chills but otherwise denies fevers, shortness of breath, chest pain/palpitations and otherwise feels well. Related Data Home Medications Medication Instructions Recorded Confirmed ergocalciferol (vitamin D2) 1,250 0 mcg PO 01/29/21 02/22/23 mcg (50,000 unit) capsule Previous Rx's Medication Instructions Recorded walker (Ultra-Light Rollator misc) #1 ea 07/15/21 diabetic supplies, miscellan. #1 ea 07/29/21 clotrimazole-betamethasone 1 1 appl topical BID #45 grams 03/09/22 %-0.05 % topical cream fenofibrate 160 mg tablet 160 mg PO DAILY #90 tabs 04/06/22 hydralazine 25 mg tablet 25 mg PO BID 90 days #180 tabs 09/06/22 metoprolol succinate 25 mg 25 mg PO DAILY 90 days #90 tabs 09/14/22 tablet,extended release 24 hr allopurinol 100 mg tablet 100 mg PO DAILY #90 tabs 09/29/22 blood sugar diagnostic #300 ea 09/29/22 lisinopril 20 mg tablet 20 mg PO BID #180 tabs 09/29/22 lancets (Microlet Lancet) #100 ea 12/14/22 furosemide 20 mg tablet 20 mg PO DAILY #90 tabs 12/23/22 omeprazole 20 mg capsule,delayed 20 mg PO DAILY #90 caps 12/23/22 release insulin human U-100 NPH-regulr See Rx Instructions subcut BID 90 03/08/23 70-30 mix 100 unit/mL subcutaneous days #100 mL susp Allergies Allergy/AdvReac Type Severity Reaction Status Date / Time codeine [CODEINE] Allergy Intermediate BACK PAIN Verified 02/22/23 14:37 pollen extracts [POLLEN] Allergy Mild SINUS Verified 02/22/23 14:37 IRRITATION Review of Systems Review of Systems: Pertinent positives and negatives as stated in [facility] Past Medical History Source: nursing notes reviewed Medical History Diabetes mellitus Hyperlipidemia Obesity Surgical History H/O varicose vein ligation History of biopsy History of cholecystectomy History of excision of lesion History of surgical removal of skin lesion Family History Family History Father Gastric cancer Mother Acute CVA (cerebrovascular accident) Diabetes Brother Colon cancer Social History Social History Housing: House Alcohol intake: never Patient Tobacco Use Status: Never used Tobacco Smoked in Last 30 Days: No e-Cigarette/Vaping Use: Never Used Second Hand Smoke Exposure: No Use of substances other than those prescribed or required for medical reasons: No Advance Directives: No Advance Directives Information Provided: No service: No Current occupational status: retired Cognitive needs: No Hearing needs: No Vision needs: Yes Physical Exam ED Vital Signs: Vital Signs - 24 hr 03/23/23 14:05 03/23/23 16:27 Temperature 96.3 F L 97.8 F Pulse Rate 100 82 Respiratory Rate 16 16 Blood Pressure 150/69 H 155/70 H Pulse Oximetry 100 100 Oxygen Delivery Method Room Air Room Air BMI result Body Mass Index 36.3 VITAL SIGNS: Reviewed. GENERAL: Elderly, well nourished, in no acute distress. HEAD: Normocephalic/atraumatic EYES: PERRLA, EOMI EARS: Ext canals without abnormality NOSE: Nares patent bilateral OROPHARYNX: no oral lesions noted, posterior pharynx clear NECK: Supple, no adenopathy LUNGS: Normal breath sounds. No adventitious sounds or accessory muscle use. SpO2<100> CARDIOVASCULAR: Regular rate and rhythm without noted murmurs ABDOMEN: Soft, non-tender, non-distended with bowel sounds. MUSCULOSKELETAL: No tenderness, deformities, or effusions noted on gross inspection. EXTREMITIES: No cyanosis, clubbing or edema; RIGHT FOOT: Erythema, ulcer type wound to the lateral 5th MTP, erythema extends proximally. SKIN: Inspection of the skin reveals no rashes NEUROLOGIC: Alert and oriented x 3. Strength and sensation to light touch were grossly intact x 4. Course Course Course Narrative: RME - 87 yo female with history of DM, HTN, gout, CKD, HLD, obesity who [facility] for evaluation of right lateral foot redness pain, swelling for the last 5 days. No known injury. No fevers. Plan: x-ray, labs, cultures, likely admit for osteo vs cellulitis Medications Administered Generic Name Dose Route Start Last Admin Trade Name Freq PRN Reason Stop Dose Admin Vancomycin HCl 2,000 mg in 500 mls @ 250 mls/hr 03/23/23 17:30 03/23/23 18:19 Vancomycin/Ns IV 03/23/23 19:29 250 mls/hr ONCE ONE Administration Discontinued Medications Generic Name Dose Route Start Last Admin Trade Name Freq PRN Reason Stop Dose Admin Piperacillin Sod/Tazobactam 50 mls @ 100 mls/hr 03/23/23 17:15 03/23/23 18:18 Sod 3.375 gm/ Sodium Chloride IV 03/23/23 17:44 Infused ONCE ONE Infusion Sodium Chloride 500 mls @ 999 mls/hr 03/23/23 17:30 03/23/23 17:59 Ns IV 03/23/23 18:00 999 mls/hr .Q31M IFEANYI Administration Medical Decision Making Medical Decision Making [facility] Narrative: 1717: 87-year-old female with history and clinical presentation, DDX: Osteomyelitis, cellulitis with nonhealing diabetic ulcer of the right foot. - lactic acid, blood cultures, antibiotics, CBC, CMP, urinalysis. I reviewed all investigations and hematologic indices are negative for leukocytosis there is a left shift and a chronic normocytic anemia without thrombocytopenia. Chemistry indices demonstrates electrolytes within normal limits but there is a noted acute on chronic BARB and CRP is elevated at 18.92. My interpretation after clinical exam and laboratory findings at this patient has a nonhealing diabetic wound ulcer with corresponding cellulitis and even though there are no x-ray findings of osteomyelitis will treat with admission, antibiotics. I have discussed with inpatient hospitalist who accepts admission. Differential Diagnosis Differential Diagnoses: The differential diagnosis associated with the presentation includes Please see the discussion above Admission/Observation Consideration of admission/observation: Escalation of care including admission/observation considered Please see the discussion above Consult Healthcare Provider Management of the patient was discussed with: Hospitalist Please see the discussion above Lab Data MDM Lab Attestation statement: I reviewed the patient's lab results. Please see the discussion above 03/23/23 16:45 03/23/23 16:44 Labs: Lab Results 03/23/23 03/23/23 03/23/23 Range/Units 16:43 16:44 16:45 WBC 8.6 (4.8-10.8) X10*3/uL RBC 2.96 L (4.20-5.50) X10*6/uL Hgb 9.2 L (12.0-16.0) g/dl Hct 27.6 L (37.0-47.0) % MCV 93.2 (80.0-98.0) fL MCH 31.1 (27.0-33.0) pg MCHC 33.3 (31.0-35.0) g/dl RDW 13.1 (11.0-16.0) % Plt Count 254 (160-400) X10*3/uL MPV 11.9 (9.4-12.3) fL Immature Gran % (Auto) 0.6 H (0.0-0.4) % Neut % (Auto) 74.5 H (45-73) % Lymph % (Auto) 17.3 L (20-40) % Daniels % (Auto) 6.0 (2-11) % Eos % (Auto) 1.3 (0-4) % Baso % (Auto) 0.3 (0-2) % Lymph # (Auto) 1.5 (1.2-4.9) X10*3/uL Daniels # (Auto) 0.5 (0.1-1.2) X10*3/uL Eos # (Auto) 0.1 (0.0-0.4) X10*3/uL Baso # (Auto) 0.0 (0.0-0.2) X10*3/uL Abs Immat Gran (auto) 0.05 H (0.00-0.03) X10*3/uL Absolute Neuts (auto) 6.4 (2.0-8.3) x10*3/uL Absolute Nucleated RBC 0.000 (0.0-0.012) X10*3/uL Nucleated RBC % (auto) 0.0 (0.0-0.2) /100WBC ESR 109 H (0-20) MM/HR Sodium 142 (135-145) mmol/L Potassium 3.9 D (3.3-5.1) mmol/L Chloride 107 (96-108) mmol/L Carbon Dioxide 21 L (22-29) mmol/L Anion Gap 18 (12-20) BUN 49 H (9-16) mg/dL Creatinine 2.26 H (0.5-1.4) mg/dL Estim Creat Clear Calc 20.4 Estimated GFR 20 POC Glucose (60-115) mg/dL Random Glucose 62 (60-115) mg/dL Lactic Acid (0.5-2.0) mmol/L Calcium 10.5 H (8.4-10.2) mg/dL Magnesium 2.0 (1.6-2.6) mg/dL Total Bilirubin 0.5 (0.0-1.0) mg/dL Direct Bilirubin 0.3 (0.0-0.5) mg/dL AST 23 (5-31) U/L ALT 17 (0-31) U/L Alkaline Phosphatase 58 (39-117) U/L C-Reactive Protein 18.92 H (< or = 0.50) mg/dL Total Protein 7.6 (6.5-8.0) g/dL Albumin 3.7 (3.5-5.0) g/dL 03/23/23 03/23/23 Range/Units 16:45 17:06 WBC (4.8-10.8) X10*3/uL RBC (4.20-5.50) X10*6/uL Hgb (12.0-16.0) g/dl Hct (37.0-47.0) % MCV (80.0-98.0) fL MCH (27.0-33.0) pg MCHC (31.0-35.0) g/dl RDW (11.0-16.0) % Plt Count (160-400) X10*3/uL MPV (9.4-12.3) fL Immature Gran % (Auto) (0.0-0.4) % Neut % (Auto) (45-73) % Lymph % (Auto) (20-40) % Daniels % (Auto) (2-11) % Eos % (Auto) (0-4) % Baso % (Auto) (0-2) % Lymph # (Auto) (1.2-4.9) X10*3/uL Daniels # (Auto) (0.1-1.2) X10*3/uL Eos # (Auto) (0.0-0.4) X10*3/uL Baso # (Auto) (0.0-0.2) X10*3/uL Abs Immat Gran (auto) (0.00-0.03) X10*3/uL Absolute Neuts (auto) (2.0-8.3) x10*3/uL Absolute Nucleated RBC (0.0-0.012) X10*3/uL Nucleated RBC % (auto) (0.0-0.2) /100WBC ESR (0-20) MM/HR Sodium (135-145) mmol/L Potassium (3.3-5.1) mmol/L Chloride (96-108) mmol/L Carbon Dioxide (22-29) mmol/L Anion Gap (12-20) BUN (9-16) mg/dL Creatinine (0.5-1.4) mg/dL Estim Creat Clear Calc Estimated GFR POC Glucose 66 (60-115) mg/dL Random Glucose (60-115) mg/dL Lactic Acid 1.2 (0.5-2.0) mmol/L Calcium (8.4-10.2) mg/dL Magnesium (1.6-2.6) mg/dL Total Bilirubin (0.0-1.0) mg/dL Direct Bilirubin (0.0-0.5) mg/dL AST (5-31) U/L ALT (0-31) U/L Alkaline Phosphatase (39-117) U/L C-Reactive Protein (< or = 0.50) mg/dL Total Protein (6.5-8.0) g/dL Albumin (3.5-5.0) g/dL Independent Interpretation I performed an independent interpretation of an: EKG Interpretation: Normal sinus rhythm, HR-97, no STEMI, DC/QRS/QTC is within normal limits. Radiology Impression Radiologist Impression: No fracture, otherwise my interpretation is in agreement with radiology's impression. External Record Review External record reviewed: Outpatient record and Prior outpatient labs Chronic Conditions Patient?s care impacted by: Diabetes and Hypertension Critical Care Time Critical Care Time Critical Care Time: Yes Total Critical Care Time: 30 Attestation: I personally attest to this time spent taking care of the patient. Discharge Plan Discharge Clinical Impression: Diabetic foot ulcer, Cellulitis, Osteomyelitis, Acute on chronic renal failure Patient Disposition: Admitted As Inpatient Prescriptions: No Action (DME) diabetic supplies, miscellan. Misc See Rx Instructions .ROUTE .MEDSUPPLY Qty: 1 2RF Rx Instructions: DIABETIC SHOES WITH 3 INSERTS clotrimazole-betamethasone 1-0.05 % cream 1 appl topical BID Qty: 45 4RF fenofibrate 160 mg tablet 160 mg PO DAILY Qty: 90 8RF hydralazine 25 mg tablet 25 mg PO BID 90 Days Qty: 180 8RF metoprolol succinate 25 mg tablet extended release 24 hr 25 mg PO DAILY 90 Days Qty: 90 8RF lisinopril 20 mg tablet 20 mg PO BID Qty: 180 7RF allopurinol 100 mg tablet 100 mg PO DAILY Qty: 90 7RF (DME) blood sugar diagnostic Strip See Rx Instructions .ROUTE .MEDSUPPLY Qty: 300 8RF Rx Instructions: to check blood sugar three times a day (DME) lancets [Microlet Lancet] Misc See Rx Instructions .ROUTE .COMPLEX Qty: 100 3RF Dose Instruction: USE DIRECTED TO CHECK BLOOD GLUCOSE THREE TIMES DAILY Rx Instructions: USE DIRECTED TO CHECK BLOOD GLUCOSE THREE TIMES DAILY furosemide 20 mg tablet 20 mg PO DAILY Qty: 90 8RF omeprazole 20 mg capsule,delayed release(DR/EC) 20 mg PO DAILY Qty: 90 8RF insulin NPH and regular human 100 unit/mL (70-30) suspension See Rx Instructions subcut BID 90 Days Qty: 100 8RF Rx Instructions: 50-60U in the AM and 45-55U in the PM subcut 2 times a day; (DME) Ultra-Light Rollator Misc See Rx Instructions .Route Qty: 1 0RF Rx Instructions: To use daily ergocalciferol (vitamin D2) 1,250 mcg (50,000 unit) capsule 0 mcg PO
[2023-03-23 16:27] VITALS: BP 155/70; PULSE 82; RESP 16; TEMP 36.6; O2SAT 100
--- NOTE | 2023-03-23 16:31 | PC.NURSE ---
IV ACCESS ATTEMPTS X 3 UNSUCCESSFUL, PA IN TO ASSIST WITH US GUIDED FOR LAB DRAW AND ACCESS, PT REMAINS ALERT AND PLEASANT CONVERSATION, SHE REPORTS UNSUCCESSFUL IV ATTEMPTS IN TRIAGE, SON ARRIVES TO BEDSIDE AND ID AGGRESSIVE AND THREATENING ABOUT CONCERN THAT NOONE HAS CHECKED HIS MOTHERS POC. RNS AT BEDSIDE REPEATEDLY EDUCATED HIM IT WILL BE DONE WHEN WE COMPLETED THE IV ACCESS AND THE LABS DRAWN.
[2023-03-23 16:51] LABS: MANUAL DIFF FLAG NO
[2023-03-23 16:54] LABS: Basophils Percent Auto 0.3 % (0-2); Eosinophils Absolute Auto 0.1 X10*3/uL (0.0-0.4); Eosinophils Percent Auto 1.3 % (0-4); Hematocrit 27.6 % (37.0-47.0); Hemoglobin 9.2 g/dl (12.0-16.0); Imm Gran Abs Auto 0.05 X10*3/uL (0.00-0.03); Imm Gran Pct Auto 0.6 % (0.0-0.4); Lymphocytes Absolute Auto 1.5 X10*3/uL (1.2-4.9); Lymphocytes Percent Auto 17.3 % (20-40); Mean Corpuscular HGB Conc 33.3 g/dl (31.0-35.0); Mean Corpuscular Hemoglobin 31.1 pg (27.0-33.0); Mean Corpuscular Volume 93.2 fL (80.0-98.0); Mean Platelet Volume 11.9 fL (9.4-12.3); Monocytes Absolute Auto 0.5 X10*3/uL (0.1-1.2); Neutrophils Absolute Auto 6.4 x10*3/uL (2.0-8.3); Neutrophils Percent Auto 74.5 % (45-73); Platelet Count 254 X10*3/uL (160-400); Red Blood Count 2.96 X10*6/uL (4.20-5.50); Red Cell Distribution Width 13.1 % (11.0-16.0); White Blood Count 8.6 X10*3/uL (4.8-10.8)
[2023-03-23 17:05] LABS: Lactic Acid 1.2 mmol/L (0.5-2.0)
--- NOTE | 2023-03-23 17:07 | PC.NURSE ---
1700 Had a conversation with patients son, who had concerns about mothers wait time being to long, pt here for right foot infection. Son was focused on glucose not being checked however not chief complaint, pt is alert x3, labs were attempted several times in triage with no success. PT ending up needing to have ultra sound guided IV which has been established. Then was stating he doesn't understand why antibiotics aren't running patient was placed in bed space around 1600. Son states that he doesn't understand why his mother wasn't treated right away. Attempted to explain process to Son who continued to talk over me and became very assertive and aggressive. Decided to end conversation at that point. PT stated he was going to complain to administration because he doesn't like the hospitals practice and stated his mother should have been brought back right away and treated.
[2023-03-23 17:08] LABS: Alanine Aminotransferase 17 U/L (0-31); Albumin Level 3.7 g/dL (3.5-5.0); Alkaline Phosphatase 58 U/L (39-117); Anion Gap 18 (12-20); Aspartate Amino Transferase 23 U/L (5-31); Bilirubin Direct 0.3 mg/dL (0.0-0.5); Bilirubin Total 0.5 mg/dL (0.0-1.0); Blood Urea Nitrogen 49 mg/dL (9-16); C Reactive Protein 18.92 mg/dL (< or = 0.50); Calcium 10.5 mg/dL (8.4-10.2); Carbon Dioxide 21 mmol/L (22-29); Chloride 107 mmol/L (96-108); Creatinine Clr Calc Pharmacy 20.4; Estimated Glomerular Filt Rate 20; Glucose Random 62 mg/dL (60-115); Potassium 3.9 mmol/L (3.3-5.1); Sodium 142 mmol/L (135-145); Total Protein 7.6 g/dL (6.5-8.0)
[2023-03-23 17:10] LABS: Glucose, Whole Blood 66 mg/dL (60-115)
--- NOTE | 2023-03-23 17:18 | ECG_ITS ---
Test Reason : DIABETES Blood Pressure : / mmHG Vent. 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 rate has increased BY 44 BPM Questionable change in initial forces of Lateral leads Non-specific change in ST segment in Lateral leads Referred By: Francoise Nieto Electronically Signed By:ROBIN JENKINS
[2023-03-23 17:39] LABS: Erythrocyte Sedimentation Rate 109 MM/HR (0-20)
[2023-03-23] MEDS: Piperacillin Sodium/Tazobactam 3.375 GM in 0.9 % Sodium Chloride 50 ML IV (17:40)
[2023-03-23] MEDS: 0.9 % Sodium Chloride 500 ML 999 ML IV (17:59)
[2023-03-23] MEDS: vancomycin/NS 2,000 MG/500 ML PLAST..BAG 250 MG IV (18:19)
--- NOTE | 2023-03-23 18:37 | PHA.MEDREC ---
Pharmacy Consult ? Medication Reconciliation Pharmacy has completed the medication reconciliation. Patient reported she was not taking any abx prior to today. Patient unsure if she is using a medicated cream. Patient reports insulin 70/30 dose as 52 units first thing when she wakes up and at 1900. Tameka Polanco, PharmD
--- NOTE | 2023-03-23 19:04 | P.HPHOSP_ITS ---
History of Present Illness Date of Service: 03/23/23 Chief Complaint: Wound This is a 87-year-old female with pertinent history of essential hypertension, insulin-dependent diabetes mellitus, gastroesophageal reflux disease, mixed hyperlipidemia who was sent from [facility] for evaluation of nonhealing wound on right foot. Patient states she 1st noticed over wound 3 days prior to presentation. It has been draining with foul-smelling purulent fluid. Does not know if she tried oral antibiotics. She denies fever, chills, nausea, vomiting, chest discomfort, palpitations, shortness of breath, abdominal pain, changes in urinary or bowel habits. Denies similar complaints of nonhealing wound or skin infection in the past. In the emergency department, x-ray with soft tissue swelling without osseous abnormality Review of Systems Constitutional: Constitutional: Reports no additional constitutional com plaints Cardiovascular: Cardiovascular: Reports no additional cardiovascular complaints Respiratory: Respiratory: Reports no additional respiratory complaints Gastrointestinal: Gastrointestinal: Reports no additional gastrointestinal complaints Genitourinary: Genitourinary: Reports no additional female genitourinary complaints Musculoskeletal: Musculoskeletal: Reports joint swelling [facility] Medical History Diabetes mellitus Hyperlipidemia Obesity Family History Father Gastric cancer Mother Acute CVA (cerebrovascular accident) Diabetes Brother Colon cancer Surgical History H/O varicose vein ligation History of biopsy History of cholecystectomy History of excision of lesion History of surgical removal of skin lesion Social History Housing: House Alcohol intake: never Patient Tobacco Use Status: Never used Tobacco Smoked in Last 30 Days: No e-Cigarette/Vaping Use: Never Used Second Hand Smoke Exposure: No Use of substances other than those prescribed or required for medical reasons: No Advance Directives: No Advance Directives Information Provided: No service: No Current occupational status: retired Cognitive needs: No Hearing needs: No Vision needs: Yes Meds Allergies Allergy/AdvReac Type Severity Reaction Status Date / Time codeine [CODEINE] Allergy Intermediate BACK PAIN Verified 02/22/23 14:37 pollen extracts [POLLEN] Allergy Mild SINUS Verified 02/22/23 14:37 IRRITATION Active Medications: Current Medications Vancomycin HCl (Vancomycin/Ns) 2,000 mg in 500 mls @ 250 mls/hr IV ONCE ONE Stop: 03/23/23 19:29 Last Admin: 03/23/23 18:19 Dose: 250 mls/hr Pharmacy Consult (Consult Rx Perform Med Rec) 1 each MISCELLANE ONCE PRN PRN Reason: Consult order Home Medications Medication Instructions Recorded Confirmed Last Taken Type ergocalciferol (vitamin D2) 1,250 1,250 mcg PO Q14D 01/29/21 03/23/23 2 Days Ago History mcg (50,000 unit) capsule ~03/21/23 insulin human U-100 NPH-regulr 52 unit subcut BID@0700,1900 03/23/23 03/23/23 03/23/23 History 70-30 mix 100 unit/mL subcutaneous susp Physical Exam Vital Signs and Narrative: Vital Signs: Last Vital Signs Temp 97.8 F 03/23/23 16:27 Pulse 82 03/23/23 16:27 Resp 16 03/23/23 16:27 BP 155/70 H 03/23/23 16:27 Pulse Ox 100 03/23/23 16:27 O2 Del Method Room Air 03/23/23 16:27 BMI result Body Mass Index 36.3 Elderly female lying in bed in no distress Neck supple, no JVD Regular rate and rhythm, S1-S2 heard Regular breath sounds bilaterally, no wheezing or crackles appreciated Abdomen soft nontender, no guarding, no rigidity Patient is awake, alert and oriented to self, place, time and person ; no focal motor deficit Extremity: Nonhealing wound lateral to the 5th MTP on right foot to with serosanguineous drainage Results Labs 03/23/23 16:45 03/23/23 16:44 Labs: Laboratory Results - last 24 hr 03/23/23 03/23/23 03/23/23 16:43 16:44 16:45 MCV 93.2 MCH 31.1 MCHC 33.3 RDW 13.1 Plt Count 254 MPV 11.9 Immature Gran % (Auto) 0.6 H Neut % (Auto) 74.5 H Lymph % (Auto) 17.3 L [place] % (Auto) 6.0 Eos % (Auto) 1.3 Baso % (Auto) 0.3 Lymph # (Auto) 1.5 [place] # (Auto) 0.5 Eos # (Auto) 0.1 Baso # (Auto) 0.0 Abs Immat Gran (auto) 0.05 H Absolute Neuts (auto) 6.4 Absolute Nucleated RBC 0.000 Nucleated RBC % (auto) 0.0 ESR 109 H Anion Gap 18 Estim Creat Clear Calc 20.4 Estimated GFR 20 POC Glucose Random Glucose 62 Lactic Acid Calcium 10.5 H Magnesium 2.0 Total Bilirubin 0.5 Direct Bilirubin 0.3 AST 23 ALT 17 Alkaline Phosphatase 58 C-Reactive Protein 18.92 H Total Protein 7.6 Albumin 3.7 03/23/23 03/23/23 16:45 17:06 MCV MCH MCHC RDW Plt Count MPV Immature Gran % (Auto) Neut % (Auto) Lymph % (Auto) [place] % (Auto) Eos % (Auto) Baso % (Auto) Lymph # (Auto) [place] # (Auto) Eos # (Auto) Baso # (Auto) Abs Immat Gran (auto) Absolute Neuts (auto) Absolute Nucleated RBC Nucleated RBC % (auto) ESR Anion Gap Estim Creat Clear Calc Estimated GFR POC Glucose 66 Random Glucose Lactic Acid 1.2 Calcium Magnesium Total Bilirubin Direct Bilirubin AST ALT Alkaline Phosphatase C-Reactive Protein Total Protein Albumin Imaging Radiologist's Impressions: Impressions Foot X-Ray 03/23/23 14:04 IMPRESSION: 1. Soft tissue wound lateral to the fifth metatarsophalangeal joint without overt acute underlying osseous abnormality. 2. Hallux valgus deformity and degenerative joint changes suggesting osteoarthritis. Chronic deformity in the distal first metatarsal. 3. Mild to moderate soft tissue swelling. Assessment and Plan (1) Cellulitis: Status: Acute Plan This is a 87-year-old female with pertinent history of essential hypertension, insulin-dependent diabetes mellitus, gastroesophageal reflux disease, mixed hyperlipidemia who was sent from Wound Clinic for evaluation of nonhealing wound on right foot. #. Nonhealing diabetic foot wound with purulent cellulitis. Will admit patient and initiate empiric IV antibiotics. Consulting vascular surgery, appreciate assistance. Obtaining CT scan to rule out osteomyelitis #. Insulin-dependent diabetes mellitus. Reduce home basal insulin. Initiating Accu-Cheks with sliding scale insulin before meals and at bedtime #. Essential hypertension. Continue home antihypertensives #. Chronic kidney disease. Monitor urine output and creatinine. Avoid nephrotoxins #. Gastroesophageal reflux disease: On PPI #. Normocytic anemia Med rec pending DVT prophylaxis: Sheelax Full code Admit as inpatient and will require two night minimum hospital stay for IV antibiotics Time Spent With Patient Time: Total time managing care of this patient today ____ minutes. Quality Stroke Does the patient have a stroke diagnosis?: No VTE Prior VTE?: No VTE Risk Level:: Medical - moderate - high VTE Device Contraindication: Treatment Not Indicated VTE Drug Contraindication: N/A - Med Ordered
[2023-03-23 19:21] LABS: Appearance Urine Clear; Color Urine Yellow; Glucose Urine UA Negative (Negative); Leukocyte Esterase Urine Negative (Negative); Nitrite Urine Negative (Negative); Urine Blood Negative (Negative); Urine Ketones Negative (Negative); Urine Protein Negative (Neg-Trace)
--- NOTE | 2023-03-23 19:23 | PHA.PROG ---
Admission Date/Time: March 23, 2023 19:02 Indication: Cellulitis - diabetic foot Weight in k.883 kg Adjusted body weight in K.7 kg [place] body weight in K kg Obesity Dosing Indication % IBW: 173% Serum Creatinine - Last 168 Hours 03/23/23 16:44 Creatinine 2.26 H Estimated CrCl and GFR - Last 168 Hours 03/23/23 16:44 Estim Creat Clear Calc 20.4 Estimated GFR 20 Vancomycin Loading Dose: 2000 mg Current Vancomycin Dosing Regimen: 750 mg Q24H Date and Time for next Vancomycin Level to be drawn: 03/24 @ 1600 Pharmacist Comments on Vancomycin Plan: Patient is consider obese with a % BMI > 130%, therefore careful monitor is required due to vancomycin high volume of distribution Patient received an adequate loading dose of vancomycin 2000 mg in ER 03/23 @ 1819 Maintenance dose vancomycin 750 mg Q24H is scheduled to start 03/24 @ 1800. 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 Pharmacy will monitor renal function daily. Tameka Polanco PharmD Vancomycin dosing will take advantage of [employer] as a clinical decision support tool that uses Bayesian modeling to calculate individual patient's pharmacokinetic parameters and forecast the patient's drug concentration time course with the target goal AUC 24 range of 400 - 600 mg/L/hr.
[2023-03-23 20:07] VITALS: BP 148/63; PULSE 94; RESP 18; TEMP 36.1; O2SAT 96
[2023-03-23 20:21] LABS: Glucose, Whole Blood 152 mg/dL (60-115)
[2023-03-23] MEDS: Enoxaparin Sodium 30 MG/0.3 ML SYRINGE SUBCUT (20:42)
[2023-03-23] MEDS: Insulin Lispro 100 UNIT/ML 3 ML VIAL SUBCUT (20:42)
[2023-03-23] MEDS: 0.9 % Sodium Chloride Flush 3 ML SYRINGE IVFLUSH (20:42)
--- NOTE | 2023-03-23 20:48 | HO.SKINPHOTO ---
Location: Right Lateral Foot Category: Stage: Length: Width: Depth: cm Location: Category: Stage: Length: Width: Depth: cm Location: Category: Stage: Length: Width: Depth: cm Location: Category: Stage: Length: Width: Depth: cm Location: Category: Stage: Length: Width: Depth: cm Location: Category: Stage: Length: Width: Depth: cm
[2023-03-23] MEDS: lisinopriL 20 MG TABLET PO (21:07)
[2023-03-23] MEDS: hydrALAZINE HCl 20 MG/ML VIAL 25 MG IVPUSH (21:07)
[2023-03-23] MEDS: cefEPime HCl 1 GM in 0.9 % Sodium Chloride 50 ML IV (22:50)
[2023-03-24 04:00] VITALS: BP 144/63; PULSE 87; RESP 18; TEMP 36.1; O2SAT 98
[2023-03-24 07:01] VITALS: BP 140/63; PULSE 92; RESP 18; TEMP 36.6; O2SAT 98
[2023-03-24 07:11] LABS: Glucose, Whole Blood 164 mg/dL (60-115)
[2023-03-24 08:13] LABS: Basophils Percent Auto 0.4 % (0-2); Eosinophils Absolute Auto 0.2 X10*3/uL (0.0-0.4); Eosinophils Percent Auto 2.9 % (0-4); Hematocrit 26.6 % (37.0-47.0); Hemoglobin 8.5 g/dl (12.0-16.0); Imm Gran Abs Auto 0.06 X10*3/uL (0.00-0.03); Imm Gran Pct Auto 0.8 % (0.0-0.4); Lymphocytes Absolute Auto 1.3 X10*3/uL (1.2-4.9); Lymphocytes Percent Auto 16.6 % (20-40); MANUAL DIFF FLAG SCAN; Mean Corpuscular Hemoglobin 30.2 pg (27.0-33.0); Mean Corpuscular Volume 94.7 fL (80.0-98.0); Monocytes Absolute Auto 0.4 X10*3/uL (0.1-1.2); Monocytes Percent Auto 5.1 % (2-11); Neutrophils Absolute Auto 5.8 x10*3/uL (2.0-8.3); Neutrophils Percent Auto 74.2 % (45-73); PLT CLUMP 1; Red Blood Count 2.81 X10*6/uL (4.20-5.50); Red Cell Distribution Width 13.2 % (11.0-16.0); SCAN SMEAR FLAG 1
[2023-03-24] MEDS: allopurinoL 100 MG TABLET PO (08:16)
[2023-03-24] MEDS: Omeprazole 20 MG CAPSULE.DR PO (08:17)
[2023-03-24] MEDS: hydrALAZINE HCl 25 MG TABLET PO ×2 (08:17→20:49)
[2023-03-24] MEDS: Furosemide 20 MG TABLET PO (08:17)
[2023-03-24] MEDS: Fenofibrate 160 MG TABLET PO (08:17)
[2023-03-24] MEDS: lisinopriL 20 MG TABLET PO ×2 (08:17→20:49)
[2023-03-24] MEDS: Metoprolol Succinate ER 25 MG TAB.ER.24H PO (08:17)
[2023-03-24] MEDS: 0.9 % Sodium Chloride Flush 3 ML SYRINGE IVFLUSH ×2 (08:22→17:34)
[2023-03-24 08:26] LABS: Anion Gap 18 (12-20); Blood Urea Nitrogen 46 mg/dL (9-16); Calcium 9.5 mg/dL (8.4-10.2); Carbon Dioxide 18 mmol/L (22-29); Chloride 109 mmol/L (96-108); Creatinine Clr Calc Pharmacy 22.6; Estimated Glomerular Filt Rate 23; Glucose Random 190 mg/dL (60-115); Potassium 4.2 mmol/L (3.3-5.1); Sodium 141 mmol/L (135-145)
[2023-03-24 08:39] LABS: White Blood Count 7.9 X10*3/uL (4.8-10.8)
[2023-03-24 08:40] LABS: Platelet Count 214 X10*3/uL (160-400); SLIDE REVIEW VERIFIED
--- NOTE | 2023-03-24 09:05 | MHC.CLN ---
NUTRITION DIET CHANGED FROM CARDIAC TO DIABETIC 1800 KCALS. PATIENT WITH DX DM AND DM ULCER.
--- NOTE | 2023-03-24 10:26 | P.CONGS_ITS ---
History of Present Illness Consult details Consult date: 03/24/23 Reason for consult: wound care Narrative: Very pleasant 87-year-old female with a history of a diabetic foot ulcer presents for nonhealing right lateral foot ulcer. She had actually [facility] for a plantar callus which had appear to be healed. She had gotten new diabetic shoes and not in the lateral aspect of that right foot there appeared to be an abrasion and he continue to worsen as she were that shoe. She was [facility] by the [facility] and sent in for anti biotic therapy. She now presents to us for vascular evaluation. Review of Systems Review of Systems: Yes all other systems are reviewed and are negative Constitutional: Constitutional: Reports no additional constitutional complaints ENT: Reports Normal hearing present Cardiovascular: Cardiovascular: Denies chest pain, Denies chest pain at rest, Denies chest pain with activity and Denies pedal edema Respiratory: Respiratory: Denies cough Gastrointestinal: Gastrointestinal: Denies abdominal pain Musculoskeletal: Musculoskeletal: Denies abnormal gait, Denies muscle cramps and Denies radiating pain into limb Integumentary/Breasts: Skin/Breast: Denies skin ulcer and Denies wounds Neurologic: Reports Normal hearing present and Denies abnormal gait Psychiatric: Psychiatric: Reports no additional psychiatric complaints PMFSH Past Medical History Medical History Diabetes mellitus Hyperlipidemia Obesity Family History Family History Father Gastric cancer Mother Acute CVA (cerebrovascular accident) Diabetes Brother Colon cancer Surgical History Surgical History H/O varicose vein ligation History of biopsy History of cholecystectomy History of excision of lesion History of surgical removal of skin lesion Social History Social History Household Members: Children Housing: House Do you presently have visiting nurse or other home services: No Alcohol intake: never Patient Tobacco Use Status: Never used Tobacco e-Cigarette/Vaping Use: Never Used Second Hand Smoke Exposure: No service: No Current occupational status: retired Cognitive needs: No Hearing needs: No Vision needs: Yes Meds Allergies Allergy/AdvReac Type Severity Reaction Status Date / Time codeine [CODEINE] Allergy Intermediate BACK PAIN Verified 02/22/23 14:37 pollen extracts [POLLEN] Allergy Mild SINUS Verified 02/22/23 14:37 IRRITATION Active Medications: Current Medications Acetaminophen (Acetaminophen 325 Mg Tablet) 650 mg PO Q6H PRN PRN Reason: Pain, Mild (Pain Scale 1-3) Allopurinol (Allopurinol 100 Mg Tablet) 100 mg PO DAILY [facility] Last Admin: 03/24/23 08:16 Dose: 100 mg Dextrose (Dextrose 50 % 25 Gm/50 Ml Syringe) 25 gm IVPUSH Q15M PRN; Protocol PRN Reason: per Hypoglycemia Standing Ord. Enoxaparin Sodium (Enoxaparin Sodium 30 Mg/0.3 Ml Syringe) 30 mg SUBCUT Q24H [facility] Last Admin: 03/23/23 20:42 Dose: 30 mg Ergocalciferol (Ergocalciferol (Vitamin D2) 1,250 Mcg Capsule) 1,250 mcg PO Q14D [facility] Fenofibrate (Fenofibrate 160 Mg Tablet) 160 mg PO DAILY [facility] Last Admin: 03/24/23 08:17 Dose: 160 mg Furosemide (Furosemide 20 Mg Tablet) 20 mg PO DAILY [facility]; Protocol Last Admin: 03/24/23 08:17 Dose: 20 mg Glucose (Glucose Gel 15 Gm Gel..Gram.) 15 gm PO Q15M PRN; Protocol PRN Reason: per Hypoglycemia Standing Ord. Hydralazine HCl (Hydralazine Hcl 25 Mg Tablet) 25 mg PO BID [facility]; Protocol Last Admin: 03/24/23 08:17 Dose: 25 mg Cefepime HCl 1 gm/ Sodium (Chloride) 50 mls @ 100 mls/hr IV Q12H [facility] Last Infusion: 03/23/23 23:20 Dose: Infused Vancomycin HCl 750 mg/ Sodium (Chloride) 265 mls @ 265 mls/hr IV Q24H [facility] Insulin Glargine (Insulin Glargine,Hum.Rec.Anlog 100 Unit/Ml 10 Ml Vial) 45 unit SUBCUT BID [facility] Last Admin: 03/24/23 08:53 Dose: Not Given Insulin Human Lispro (Insulin Lispro 100 Unit/Ml 3 Ml Vial) 0 unit SUBCUT QIDACHS [facility]; Protocol Last Admin: 03/24/23 08:52 Dose: Not Given Lisinopril (Lisinopril 20 Mg Tablet) 20 mg PO BID [facility]; Protocol Last Admin: 03/24/23 08:17 Dose: 20 mg Melatonin (Melatonin 3 Mg Tablet) 6 mg PO BEDTIME PRN PRN Reason: Insomnia Metoprolol Succinate (Metoprolol Succinate Er 25 Mg Tab.Er.24h) 25 mg PO DAILY [facility]; Protocol Last Admin: 03/24/23 08:17 Dose: 25 mg Non-Formulary Medication (Insulin Nph And Regular Human) 52 unit subcut BID@0700,1900 [facility] Omeprazole (Omeprazole 20 Mg Capsule.Dr) 20 mg PO DAILY@0630 [facility] Last Admin: 03/24/23 08:17 Dose: 20 mg Ondansetron HCl (Ondansetron Hcl 4 Mg/2 Ml Vial) 4 mg IVPUSH Q8H PRN PRN Reason: Nausea and Vomiting Pharmacy Consult (Consult Rx Perform Med Rec) 1 each MISCELLANE ONCE PRN PRN Reason: Consult order Pharmacy Consult (Consult Rx Vancomycin Dosing) 1 each MISCELLANE DAILY PRN PRN Reason: Consult order Sodium Chloride (0.9 % Sodium Chloride Flush 3 Ml Syringe) 3 ml IVFLUSH QSHIFT [facility] Last Admin: 03/24/23 08:22 Dose: 3 ml Home Medications Medication Instructions Recorded Confirmed Last Taken Type ergocalciferol (vitamin D2) 1,250 1,250 mcg PO Q14D 01/29/21 03/23/23 2 Days Ago History mcg (50,000 unit) capsule ~03/21/23 insulin human U-100 NPH-regulr 52 unit subcut BID@0700,1900 03/23/23 03/23/23 03/23/23 History 70-30 mix 100 unit/mL subcutaneous susp Physical Exam Vital Signs: Vital Signs: Last Vital Signs Temp 98 F 03/24/23 07:01 Pulse 92 03/24/23 07:01 Resp 18 03/24/23 07:01 BP 140/63 H 03/24/23 07:01 Pulse Ox 98 03/24/23 07:01 O2 Del Method Room Air 03/24/23 07:01 BMI result Body Mass Index 36.3 Const: General: cooperative, healthy appearing and comfortable Orientation /consciousness: oriented to person, oriented to place and oriented to time HEENT: Head: Yes normal to inspection Neck: Neck: Yes normal visual inspection Carotids: no bruits Chest: Chest palpation & inspection: normal inspection of the chest Resp: Effort & Inspection: normal respiratory effort and able to speak in complete sentences Auscultation: clear to auscultation bilaterally, no crackles, no rales, no rhonchi and no wheezes Cardio: Rate: regular rate Rhythm: regular rhythm Heart sounds: S1 normal heart sound present and S2 normal heart sound present Bruits: no carotid bruits Peripheral pulses: Peripheral pulses 2+ throughout GI: Inspection: Yes normal to inspection Skin: Other: Right lateral foot approximately 2 x 1.5 cm ulcer fibrinous necrotic material overlying. Left medial calf small abrasion. Wounds: no wounds Hair: normal Neuro: General: oriented to person, oriented to place and oriented to time Cranial nerves: Yes CN's II-XII intact bilaterally and Yes Normal hearing present Cognition (Neuro): normal cognition Motor exam (neuro): 5/5 motor strength present throughout Extrem: Other: venous exam: No significant superficial varicosities or spider telangiectasias, minimal edema General: No clubbing, No cyanosis and No edema Psych: Appearance: grossly normal Mental Status: mental status grossly normal Speech and movement: Normal speech and movement present Results Labs 03/24/23 07:57 03/24/23 07:57 Labs: Abnormal lab results 03/23/23 03/23/23 03/23/23 Range/Units 16:43 16:44 16:45 RBC 2.96 L (4.20-5.50) X10*6/uL Hgb 9.2 L (12.0-16.0) g/dl Hct 27.6 L (37.0-47.0) % Immature Gran % (Auto) 0.6 H (0.0-0.4) % Neut % (Auto) 74.5 H (45-73) % Lymph % (Auto) 17.3 L (20-40) % Abs Immat Gran (auto) 0.05 H (0.00-0.03) X10*3/uL ESR 109 H (0-20) MM/HR Chloride (96-108) mmol/L Carbon Dioxide 21 L (22-29) mmol/L BUN 49 H (9-16) mg/dL Creatinine 2.26 H (0.5-1.4) mg/dL POC Glucose (60-115) mg/dL Random Glucose (60-115) mg/dL Calcium 10.5 H (8.4-10.2) mg/dL C-Reactive Protein 18.92 H (< or = 0.50) mg/dL 03/23/23 03/24/23 03/24/23 Range/Units 20:17 07:00 07:57 RBC 2.81 L (4.20-5.50) X10*6/uL Hgb 8.5 L (12.0-16.0) g/dl Hct 26.6 L (37.0-47.0) % Immature Gran % (Auto) 0.8 H (0.0-0.4) % Neut % (Auto) 74.2 H (45-73) % Lymph % (Auto) 16.6 L (20-40) % Abs Immat Gran (auto) 0.06 H (0.00-0.03) X10*3/uL ESR (0-20) MM/HR Chloride (96-108) mmol/L Carbon Dioxide (22-29) mmol/L BUN (9-16) mg/dL Creatinine (0.5-1.4) mg/dL POC Glucose 152 H 164 H (60-115) mg/dL Random Glucose (60-115) mg/dL Calcium (8.4-10.2) mg/dL C-Reactive Protein (< or = 0.50) mg/dL 03/24/23 Range/Units 07:57 RBC (4.20-5.50) X10*6/uL Hgb (12.0-16.0) g/dl Hct (37.0-47.0) % Immature Gran % (Auto) (0.0-0.4) % Neut % (Auto) (45-73) % Lymph % (Auto) (20-40) % Abs Immat Gran (auto) (0.00-0.03) X10*3/uL ESR (0-20) MM/HR Chloride 109 H (96-108) mmol/L Carbon Dioxide 18 L (22-29) mmol/L BUN 46 H (9-16) mg/dL Creatinine 2.04 H (0.5-1.4) mg/dL POC Glucose (60-115) mg/dL Random Glucose 190 H (60-115) mg/dL Calcium (8.4-10.2) mg/dL C-Reactive Protein (< or = 0.50) mg/dL Short CBC 03/23/23 03/24/23 Range/Units 16:45 07:57 WBC 8.6 7.9 (4.8-10.8) X10*3/uL Hgb 9.2 L 8.5 L (12.0-16.0) g/dl Hct 27.6 L 26.6 L (37.0-47.0) % Plt Count 254 214 (160-400) X10*3/uL BMP 03/23/23 03/24/23 16:44 07:57 Sodium 142 141 Potassium 3.9 D 4.2 Chloride 107 109 H Carbon Dioxide 21 L 18 L BUN 49 H 46 H Creatinine 2.26 H 2.04 H Calcium 10.5 H 9.5 D Liver Function 03/23/23 Range/Units 16:44 Total Bilirubin 0.5 (0.0-1.0) mg/dL Direct Bilirubin 0.3 (0.0-0.5) mg/dL AST 23 (5-31) U/L ALT 17 (0-31) U/L Alkaline Phosphatase 58 (39-117) U/L Albumin 3.7 (3.5-5.0) g/dL Urine 03/23/23 Range/Units 19:14 Urine Color Yellow Urine Appearance Clear Urine pH 6.0 (5.0-9.0) Ur Specific [place] 1.010 (1.005-1.025) Urine Protein Negative (Neg-Trace) mg/dL Urine Glucose (UA) Negative (Negative) mg/dL All other labs normal. Assessment and Plan (1) Diabetic foot ulcer: Status: Acute Plan In short patient has nonhealing diabetic ulcer of the right foot. At the urrent time would continue with local wound care. I have taken the liberty of ordering noninvasive arterial testing. In addition there is concern of underlying osteomyelitis as it does penetrate fairly deep. Even though the bone appears to be still covered. We are pending results of CT scan and noninvasive testing. We will continue to follow with you. Thank you for allowing us to assist in her care. Time Spent With Patient Time: Total time managing care of this patient today ____ minutes. Procedures Date of Service Date of Service: 03/24/23
--- NOTE | 2023-03-24 10:39 | HO.PM.IMPN ---
Subjective Subjective Date of Service: 03/24/23 Interval History: Seen in follow up for diabetic foot infection Interval history: Has no complaints, denies pain. Has sensation in foot. Refusing lantus and humalog, wants to use own NPH Review of Systems Review of Systems: Yes all other systems are reviewed and are negative Physical Exam Vital Signs: Vital Signs: Last Vital Signs Temp 98 F 03/24/23 07:01 Pulse 92 03/24/23 07:01 Resp 18 03/24/23 07:01 BP 140/63 H 03/24/23 07:01 Pulse Ox 98 03/24/23 07:01 O2 Del Method Room Air 03/24/23 07:01 BMI result Body Mass Index 36.3 Constitutional - Awake and Alert, No apparent distress Eyes - PERRLA, EOMI Cardiovascular - S1S2, RRR, No edema, pedal pules 2+ b/l Respiratory - Normal lung expansion, Normal respiratory effort, No respiratory distress, CTA bilaterally Extremities - no calf tenderness bilaterally, no swelling Skin - Warm/Dry. 2.5cmx1.5cm stage 3 diabetic ulcer lateral right foot with purulent drainage and foul odor. see photo Neurological - Alert & oriented x3 Psychological - Appropriate affect Objective Data Active Medications Acetaminophen (Acetaminophen 325 Mg Tablet) 650 mg PO Q6H PRN PRN Reason: Pain, Mild (Pain Scale 1-3) Allopurinol (Allopurinol 100 Mg Tablet) 100 mg PO DAILY [facility] Last Admin: 03/24/23 08:16 Dose: 100 mg Documented By: KATE Dextrose (Dextrose 50 % 25 Gm/50 Ml Syringe) 25 gm IVPUSH Q15M PRN; Protocol PRN Reason: per Hypoglycemia Standing Ord. Enoxaparin Sodium (Enoxaparin Sodium 30 Mg/0.3 Ml Syringe) 30 mg SUBCUT Q24H [facility] Last Admin: 03/23/23 20:42 Dose: 30 mg Documented By: ESTEBAN Ergocalciferol (Ergocalciferol (Vitamin D2) 1,250 Mcg Capsule) 1,250 mcg PO Q14D [facility] Fenofibrate (Fenofibrate 160 Mg Tablet) 160 mg PO DAILY [facility] Last Admin: 03/24/23 08:17 Dose: 160 mg Documented By: KATE Furosemide (Furosemide 20 Mg Tablet) 20 mg PO DAILY [facility]; Protocol Last Admin: 03/24/23 08:17 Dose: 20 mg Documented By: KATE Glucose (Glucose Gel 15 Gm Gel..Gram.) 15 gm PO Q15M PRN; Protocol PRN Reason: per Hypoglycemia Standing Ord. Hydralazine HCl (Hydralazine Hcl 25 Mg Tablet) 25 mg PO BID [facility]; Protocol Last Admin: 03/24/23 08:17 Dose: 25 mg Documented By: KATE Cefepime HCl 1 gm/ Sodium (Chloride) 50 mls @ 100 mls/hr IV Q12H [facility] Last Infusion: 03/23/23 23:20 Dose: 0 mls/hr Documented By: ESTEBAN Vancomycin HCl 750 mg/ Sodium (Chloride) 265 mls @ 265 mls/hr IV Q24H [facility] Insulin Glargine (Insulin Glargine,Hum.Rec.Anlog 100 Unit/Ml 10 Ml Vial) 45 unit SUBCUT BID [facility] Last Admin: 03/24/23 08:53 Dose: Not Given Documented By: KATE Non-Admin Reason: Patient Refused Insulin Human Lispro (Insulin Lispro 100 Unit/Ml 3 Ml Vial) 0 unit SUBCUT QIDACHS [facility]; Protocol Last Admin: 03/24/23 08:52 Dose: Not Given Documented By: KATE Non-Admin Reason: Patient Refused Lisinopril (Lisinopril 20 Mg Tablet) 20 mg PO BID [facility]; Protocol Last Admin: 03/24/23 08:17 Dose: 20 mg Documented By: KATE Melatonin (Melatonin 3 Mg Tablet) 6 mg PO BEDTIME PRN PRN Reason: Insomnia Metoprolol Succinate (Metoprolol Succinate Er 25 Mg Tab.Er.24h) 25 mg PO DAILY [facility]; Protocol Last Admin: 03/24/23 08:17 Dose: 25 mg Documented By: KATE Non-Formulary Medication (Insulin Nph And Regular Human) 52 unit subcut BID@0700,1900 [facility] Omeprazole (Omeprazole 20 Mg Mar.) 20 mg PO DAILY@0630 [facility] Last Admin: 03/24/23 08:17 Dose: 20 mg Documented By: KATE Ondansetron HCl (Ondansetron Hcl 4 Mg/2 Ml Vial) 4 mg IVPUSH Q8H PRN PRN Reason: Nausea and Vomiting Pharmacy Consult (Consult Rx Perform Med Rec) 1 each MISCELLANE ONCE PRN PRN Reason: Consult order Pharmacy Consult (Consult Rx Vancomycin Dosing) 1 each MISCELLANE DAILY PRN PRN Reason: Consult order Sodium Chloride (0.9 % Sodium Chloride Flush 3 Ml Syringe) 3 ml IVFLUSH QSHIFT [facility] Last Admin: 03/24/23 08:22 Dose: 3 ml Documented By: KATE Labs 03/24/23 07:57 03/24/23 07:57 Labs: Laboratory Results - last 24 hr 03/23/23 03/23/23 03/23/23 16:43 16:44 16:45 MCV 93.2 MCH 31.1 MCHC 33.3 RDW 13.1 Plt Count 254 MPV 11.9 Immature Gran % (Auto) 0.6 H Neut % (Auto) 74.5 H Lymph % (Auto) 17.3 L [place] % (Auto) 6.0 Eos % (Auto) 1.3 Baso % (Auto) 0.3 Lymph # (Auto) 1.5 [place] # (Auto) 0.5 Eos # (Auto) 0.1 Baso # (Auto) 0.0 Abs Immat Gran (auto) 0.05 H Absolute Neuts (auto) 6.4 Absolute Nucleated RBC 0.000 Nucleated RBC % (auto) 0.0 Smear Tech's Comments ESR 109 H Anion Gap 18 Estim Creat Clear Calc 20.4 Estimated GFR 20 POC Glucose Random Glucose 62 Lactic Acid Calcium 10.5 H Magnesium 2.0 Total Bilirubin 0.5 Direct Bilirubin 0.3 AST 23 ALT 17 Alkaline Phosphatase 58 C-Reactive Protein 18.92 H Total Protein 7.6 Albumin 3.7 Urine Color Urine Appearance Urine pH Ur Specific [place] Urine Protein Urine Glucose (UA) Urine Ketones Urine Blood Urine Nitrite Ur Leukocyte Esterase 03/23/23 03/23/23 03/23/23 16:45 17:06 19:14 MCV MCH MCHC RDW Plt Count MPV Immature Gran % (Auto) Neut % (Auto) Lymph % (Auto) [place] % (Auto) Eos % (Auto) Baso % (Auto) Lymph # (Auto) [place] # (Auto) Eos # (Auto) Baso # (Auto) Abs Immat Gran (auto) Absolute Neuts (auto) Absolute Nucleated RBC Nucleated RBC % (auto) Smear Tech's Comments ESR Anion Gap Estim Creat Clear Calc Estimated GFR POC Glucose 66 Random Glucose Lactic Acid 1.2 Calcium Magnesium Total Bilirubin Direct Bilirubin AST ALT Alkaline Phosphatase C-Reactive Protein Total Protein Albumin Urine Color Yellow Urine Appearance Clear Urine pH 6.0 Ur Specific [place] 1.010 Urine Protein Negative Urine Glucose (UA) Negative Urine Ketones Negative Urine Blood Negative Urine Nitrite Negative Ur Leukocyte Esterase Negative 03/23/23 03/24/23 03/24/23 20:17 07:00 07:57 MCV 94.7 MCH 30.2 MCHC 32.0 RDW 13.2 Plt Count 214 MPV Not Reportable Immature Gran % (Auto) 0.8 H Neut % (Auto) 74.2 H Lymph % (Auto) 16.6 L [place] % (Auto) 5.1 Eos % (Auto) 2.9 Baso % (Auto) 0.4 Lymph # (Auto) 1.3 [place] # (Auto) 0.4 Eos # (Auto) 0.2 Baso # (Auto) 0.0 Abs Immat Gran (auto) 0.06 H Absolute Neuts (auto) 5.8 Absolute Nucleated RBC 0.000 Nucleated RBC % (auto) 0.0 Smear Tech's Comments VERIFIED ESR Anion Gap Estim Creat Clear Calc Estimated GFR POC Glucose 152 H 164 H Random Glucose Lactic Acid Calcium Magnesium Total Bilirubin Direct Bilirubin AST ALT Alkaline Phosphatase C-Reactive Protein Total Protein Albumin Urine Color Urine Appearance Urine pH Ur Specific [place] Urine Protein Urine Glucose (UA) Urine Ketones Urine Blood Urine Nitrite Ur Leukocyte Esterase 03/24/23 07:57 MCV MCH MCHC RDW Plt Count MPV Immature Gran % (Auto) Neut % (Auto) Lymph % (Auto) [place] % (Auto) Eos % (Auto) Baso % (Auto) Lymph # (Auto) [place] # (Auto) Eos # (Auto) Baso # (Auto) Abs Immat Gran (auto) Absolute Neuts (auto) Absolute Nucleated RBC Nucleated RBC % (auto) Smear Tech's Comments ESR Anion Gap 18 Estim Creat Clear Calc 22.6 Estimated GFR 23 POC Glucose Random Glucose 190 H Lactic Acid Calcium 9.5 D Magnesium Total Bilirubin Direct Bilirubin AST ALT Alkaline Phosphatase C-Reactive Protein Total Protein Albumin Urine Color Urine Appearance Urine pH Ur Specific [place] Urine Protein Urine Glucose (UA) Urine Ketones Urine Blood Urine Nitrite Ur Leukocyte Esterase Assessment and Plan (1) Diabetic foot ulcer: Status: Acute (2) Cellulitis: Status: Acute Plan 87-year-old female with pertinent history of essential hypertension, insulin-dependent diabetes mellitus, gastroesophageal reflux disease, mixed hyperlipidemia admitted for management nonhealing wound on right foot with cellulitis and suspected osteomyelitis #Nonhealing stage 3 diabetic R foot wound with purulent cellulitis -Continue IV vanco and zosyn -Suspect osteomyelitis with ESR 109, CRP 19 and duration of symptoms with necrosis present, CT foot pending -Vascular surgery input appreciated, Arterial duplex pending -Infectious disease consult added -Follow CBC, BC #Insulin dependent type 2 diabetes- controlled -Refusing lantus/humalog. Pt to bring in own NPH from home -POC glucose -Diabetic diet #Essential hypertension- reasonably controlled -Continue home antihypertensives #Chronic kidney disease stage 4 -Renal function baseline -Avoid nephrotoxins -Follow BMP #Gastroesophageal reflux disease -continue PPI #Acute on Chronic Normocytic anemia -H/H slightly below baseline in setting of acute illness -Above transfusion threshold -monitor H/H DVT prophylaxis: Lovenox Full code Pt requires ongoing inpt stay for management of infected diabetic foot ulcer with necrosis and probable osteomyelitis requiring IV abx and possible debridement Time Spent With Patient Time: Total time managing care of this patient today ____ minutes. Quality Stroke Does the patient have a stroke diagnosis?: No VTE Prior VTE?: No VTE Risk Level:: Medical - moderate - high VTE Device Contraindication: Treatment Not Indicated VTE Drug Contraindication: N/A - Med Ordered
[2023-03-24 11:54] LABS: Glucose, Whole Blood 340 mg/dL (60-115)
[2023-03-24] MEDS: cefEPime HCl 1 GM in 0.9 % Sodium Chloride 50 ML IV ×2 (12:00→22:32)
[2023-03-24] MEDS: Insulin Lispro 100 UNIT/ML 3 ML VIAL SUBCUT ×3 (12:00→20:48)
--- NOTE | 2023-03-24 13:29 | MHC.CM.PN ---
met with pt and son with who she lives pt had no servcies has own transport home dc plan home no servcies
[2023-03-24 16:00] VITALS: BP 148/65; PULSE 89; RESP 20; TEMP 35.4; O2SAT 99
[2023-03-24 16:28] LABS: Glucose, Whole Blood 231 mg/dL (60-115)
[2023-03-24] MEDS: vancomycin HCL 750 MG in 0.9 % Sodium Chloride 250 ML 265 MG IV (18:23)
[2023-03-24 20:00] VITALS: BP 140/65; PULSE 89; RESP 18; TEMP 36.2; O2SAT 96
[2023-03-24 20:24] LABS: Glucose, Whole Blood 333 mg/dL (60-115)
[2023-03-24] MEDS: Enoxaparin Sodium 30 MG/0.3 ML SYRINGE SUBCUT (20:48)
[2023-03-24] MEDS: Insulin Glargine,Hum.rec.anlog 100 UNIT/ML 10 ML VIAL 45 UNIT SUBCUT (20:49)
--- NOTE | 2023-03-24 22:41 | P.CNID_ITS ---
History of Present Illness Data of Consult Service Date: 03/24/23 Requesting physician: Ting Lawrence Primary Care Provider: Christopher Zamudio MD [facility] Reason for consult: nonhealing right foot ulcer She presents with nonhealing right foot redness swelling . She was sent to ER from [facility] with nonhealing right ulcer. She has had vascular surgery in past. CT scan unremarkable but ESR 109. Review of Systems Review of Systems: Yes all other systems are reviewed and are negative PMFSH Past Medical History Medical History Diabetes mellitus Hyperlipidemia Obesity Family History Family History Father Gastric cancer Mother Acute CVA (cerebrovascular accident) Diabetes Brother Colon cancer Family history: reviewed and not pertinent Surgical History Surgical History H/O varicose vein ligation History of biopsy History of cholecystectomy History of excision of lesion History of surgical removal of skin lesion Social History Social History Household Members: Children Housing: House Do you presently have visiting nurse or other home services: No Alcohol intake: never Patient Tobacco Use Status: Never used Tobacco e-Cigarette/Vaping Use: Never Used Second Hand Smoke Exposure: No service: No Current occupational status: retired Cognitive needs: No Hearing needs: No Vision needs: Yes Meds Allergies Allergy/AdvReac Type Severity Reaction Status Date / Time codeine [CODEINE] Allergy Intermediate BACK PAIN Verified 02/22/23 14:37 pollen extracts [POLLEN] Allergy Mild SINUS Verified 02/22/23 14:37 IRRITATION Active Medications: Current Medications Acetaminophen (Acetaminophen 325 Mg Tablet) 650 mg PO Q6H PRN PRN Reason: Pain, Mild (Pain Scale 1-3) Allopurinol (Allopurinol 100 Mg Tablet) 100 mg PO DAILY [facility] Last Admin: 03/24/23 08:16 Dose: 100 mg Dextrose (Dextrose 50 % 25 Gm/50 Ml Syringe) 25 gm IVPUSH Q15M PRN; Protocol PRN Reason: per Hypoglycemia Standing Ord. Enoxaparin Sodium (Enoxaparin Sodium 30 Mg/0.3 Ml Syringe) 30 mg SUBCUT Q24H [facility] Last Admin: 03/24/23 20:48 Dose: 30 mg Ergocalciferol (Ergocalciferol (Vitamin D2) 1,250 Mcg Capsule) 1,250 mcg PO Q14D [facility] Fenofibrate (Fenofibrate 160 Mg Tablet) 160 mg PO DAILY [facility] Last Admin: 03/24/23 08:17 Dose: 160 mg Furosemide (Furosemide 20 Mg Tablet) 20 mg PO DAILY [facility]; Protocol Last Admin: 03/24/23 08:17 Dose: 20 mg Glucose (Glucose Gel 15 Gm Gel..Gram.) 15 gm PO Q15M PRN; Protocol PRN Reason: per Hypoglycemia Standing Ord. Hydralazine HCl (Hydralazine Hcl 25 Mg Tablet) 25 mg PO BID [facility]; Protocol Last Admin: 03/24/23 20:49 Dose: 25 mg Cefepime HCl 1 gm/ Sodium (Chloride) 50 mls @ 100 mls/hr IV Q12H [facility] Last Admin: 03/24/23 22:32 Dose: 100 mls/hr Vancomycin HCl 750 mg/ Sodium (Chloride) 265 mls @ 265 mls/hr IV Q24H [facility] Last Infusion: 03/24/23 19:51 Dose: Infused Insulin Glargine (Insulin Glargine,Hum.Rec.Anlog 100 Unit/Ml 10 Ml Vial) 45 unit SUBCUT BID [facility] Last Admin: 03/24/23 20:49 Dose: 45 unit Insulin Human Lispro (Insulin Lispro 100 Unit/Ml 3 Ml Vial) 0 unit SUBCUT QIDACHS [facility]; Protocol Last Admin: 03/24/23 20:48 Dose: 8 unit Lisinopril (Lisinopril 20 Mg Tablet) 20 mg PO BID [facility]; Protocol Last Admin: 03/24/23 20:49 Dose: 20 mg Melatonin (Melatonin 3 Mg Tablet) 6 mg PO BEDTIME PRN PRN Reason: Insomnia Metoprolol Succinate (Metoprolol Succinate Er 25 Mg Tab.Er.24h) 25 mg PO DAILY [facility]; Protocol Last Admin: 03/24/23 08:17 Dose: 25 mg Non-Formulary Medication (Insulin Nph And Regular Human) 52 unit subcut BID@0700,1900 [facility] Omeprazole (Omeprazole 20 Mg Capsule.Dr) 20 mg PO DAILY@0630 [facility] Last Admin: 03/24/23 08:17 Dose: 20 mg Ondansetron HCl (Ondansetron Hcl 4 Mg/2 Ml Vial) 4 mg IVPUSH Q8H PRN PRN Reason: Nausea and Vomiting Pharmacy Consult (Consult Rx Perform Med Rec) 1 each MISCELLANE ONCE PRN PRN Reason: Consult order Pharmacy Consult (Consult Rx Vancomycin Dosing) 1 each MISCELLANE DAILY PRN PRN Reason: Consult order Sodium Chloride (0.9 % Sodium Chloride Flush 3 Ml Syringe) 3 ml IVFLUSH QSHIFT [facility] Last Admin: 03/24/23 17:34 Dose: 3 ml Home Medications Medication Instructions Recorded Confirmed Last Taken Type ergocalciferol (vitamin D2) 1,250 1,250 mcg PO Q14D 01/29/21 03/23/23 2 Days Ago History mcg (50,000 unit) capsule ~03/21/23 insulin human U-100 NPH-regulr 52 unit subcut BID@0700,1900 03/23/23 03/23/23 03/23/23 History 70-30 mix 100 unit/mL subcutaneous susp Physical Exam Vital Signs: Vital Signs: Last Vital Signs Temp 97.1 F 03/24/23 20:00 Pulse 89 03/24/23 20:00 Resp 18 03/24/23 20:00 BP 140/65 H 03/24/23 20:00 Pulse Ox 96 03/24/23 20:00 O2 Del Method Room Air 03/24/23 20:00 BMI result Body Mass Index 36.3 Const: General: cooperative HEENT: Head: Yes normal to inspection Face and sinus: Yes normal facial exam Mouth: Normal oral and palatal mucosa present Teeth and gingiva: dentition normal Eyes: General: appearance normal, both eyes and all related structures Pupils: Equal, round and reactive pupils present Resp: Effort & Inspection: normal respiratory effort Cardio: Rate: regular rate Rhythm: regular rhythm GI: Palpation (GI): Soft to palpation and nontender : General: Yes no CVA tenderness Back/Spine/Pelvis: Back: no CVA tenderness Skin: General skin exam: no rashes or lesions noted Neuro: General: moves all extremities Cranial nerves: Yes Equal, round and reactive pupils present Extrem: Other: right lateral MTP site with erythema foot Psych: Appearance: grossly normal Results Labs 03/24/23 07:57 03/24/23 07:57 Labs: Short CBC 03/24/23 Range/Units 07:57 WBC 7.9 (4.8-10.8) X10*3/uL Hgb 8.5 L (12.0-16.0) g/dl Hct 26.6 L (37.0-47.0) % Plt Count 214 (160-400) X10*3/uL BMP 03/24/23 07:57 Sodium 141 Potassium 4.2 Chloride 109 H Carbon Dioxide 18 L BUN 46 H Creatinine 2.04 H Calcium 9.5 D Microbiology Microbiology Results: Microbiology 03/23/23 16:44 Blood - Venous Blood Culture - Preliminary No growth after 24 hours. 03/23/23 16:43 Blood - Venous Blood Culture - Preliminary No growth after 24 hours. Assessment and Plan (1) Diabetic foot ulcer: Status: Acute She has deep ulcer probe per Surgery although no bone exposed. ESR is very high and wasnt in past and can indicate OM. CT scan is about 70% or less sensitive. (2) Cellulitis: Status: Acute Plan Six weeks IV Ertapenem unless cultures dictate otherwise. Can follow with me and Wound Clinic. Time Spent With Patient Time: Total time managing care of this patient today ____ minutes.
[2023-03-25 03:21] VITALS: BP 168/75; PULSE 91; RESP 18; TEMP 36; O2SAT 97
[2023-03-25 05:44] LABS: MANUAL DIFF FLAG NO
[2023-03-25] MEDS: Omeprazole 20 MG CAPSULE.DR PO (05:58)
[2023-03-25 06:05] LABS: Basophils Percent Auto 0.4 % (0-2); Eosinophils Absolute Auto 0.3 X10*3/uL (0.0-0.4); Hematocrit 25.5 % (37.0-47.0); Hemoglobin 8.2 g/dl (12.0-16.0); Imm Gran Abs Auto 0.05 X10*3/uL (0.00-0.03); Imm Gran Pct Auto 0.7 % (0.0-0.4); Lymphocytes Absolute Auto 1.2 X10*3/uL (1.2-4.9); Lymphocytes Percent Auto 16.6 % (20-40); Mean Corpuscular HGB Conc 32.2 g/dl (31.0-35.0); Mean Corpuscular Hemoglobin 30.4 pg (27.0-33.0); Mean Corpuscular Volume 94.4 fL (80.0-98.0); Mean Platelet Volume 12.3 fL (9.4-12.3); Monocytes Absolute Auto 0.5 X10*3/uL (0.1-1.2); Monocytes Percent Auto 6.5 % (2-11); Neutrophils Absolute Auto 5.3 x10*3/uL (2.0-8.3); Neutrophils Percent Auto 71.8 % (45-73); Platelet Count 230 X10*3/uL (160-400); Red Cell Distribution Width 13.2 % (11.0-16.0); White Blood Count 7.4 X10*3/uL (4.8-10.8)
[2023-03-25 06:08] LABS: Anion Gap 17 (12-20); Blood Urea Nitrogen 50 mg/dL (9-16); Calcium 9.6 mg/dL (8.4-10.2); Carbon Dioxide 19 mmol/L (22-29); Chloride 108 mmol/L (96-108); Creatinine Clr Calc Pharmacy 24.2; Estimated Glomerular Filt Rate 25; Glucose Random 112 mg/dL (60-115); Potassium 4.2 mmol/L (3.3-5.1); Sodium 140 mmol/L (135-145)
[2023-03-25 07:00] VITALS: BP 143/66; PULSE 86; RESP 18; TEMP 36.6; O2SAT 96
[2023-03-25 07:25] LABS: Glucose, Whole Blood 94 mg/dL (60-115)
--- NOTE | 2023-03-25 08:58 | HO.VASCPN ---
Subjective Subjective Date of Service: 03/25/23 Patient reports: no new complaints and feels better Interval history: Patient seen and examined. No significant events overnight. She in general appears to be doing much better and in much better spirits. Up in a chair this morning eating breakfast. Reports pain and discomfort of the right lower extremity significantly improved. Physical Exam Vital Signs: Vital Signs: Last Vital Signs Temp 98 F 03/25/23 07:00 Pulse 86 03/25/23 07:00 Resp 18 03/25/23 07:00 BP 143/66 H 03/25/23 07:00 Pulse Ox 96 03/25/23 07:00 O2 Del Method Room Air 03/25/23 07:00 BMI result Body Mass Index 36.3 Const: General: cooperative, healthy appearing and no acute distress Orientation/consciousness: oriented to person, oriented to place and oriented to time HEENT: Head: Yes normal to inspection Neck: Carotids: no bruits Chest: Chest palpation & inspection: normal inspection of the chest Resp: Effort & Inspection: normal respiratory effort and able to speak in complete sentences Auscultation: clear to auscultation bilaterally Cardio: Rate: regular rate Heart sounds: S1 normal heart sound present and S2 normal heart sound present GI: Inspection: Yes normal to inspection Skin: Other: Right lower extremity dressing clean dry intact General skin exam: no rashes or lesions noted Wounds: no wounds Neuro: General: oriented to person, oriented to place, oriented to time and CN's II-XI intact bilaterally Extrem: General: Yes normal to inspection, Yes full ROM and Yes no clubbing, cyanosis or edema Psych: Appearance: grossly normal and well kempt Speech and movement: Normal speech and movement present Affect: normal affect Progress Note: A&P Assessment and plan (1) Diabetic foot ulcer: Status: Acute Assessment and Plan: In short patient has a nonhealing right lower extremity diabetic foot ulcer. I did review her arterial testing which is within normal limits. In addition she did have a CT scan which was nondiagnostic for osteo. I do suspect she does have underlying osteo. Would treat with long-term IV antibiotics in offloading as much as possible. Stable from my perspective. Can follow-up with me as an outpatient. Thank you for allowing us to assist in her care. If there are any questions or concerns please do not hesitate to contact us. Time Spent With Patient Time: Total time managing care of this patient today ____ minutes. Procedures Date of Service Date of Service: 03/25/23 Quality Stroke Does the patient have a stroke diagnosis?: No VTE Prior VTE?: No VTE Risk Level:: Medical - moderate - high VTE Device Contraindication: Treatment Not Indicated VTE Drug Contraindication: N/A - Med Ordered
[2023-03-25] MEDS: 0.9 % Sodium Chloride Flush 3 ML SYRINGE IVFLUSH ×2 (09:09→16:40)
[2023-03-25] MEDS: allopurinoL 100 MG TABLET PO (09:09)
[2023-03-25] MEDS: hydrALAZINE HCl 25 MG TABLET PO ×2 (09:10→22:10)
[2023-03-25] MEDS: Metoprolol Succinate ER 25 MG TAB.ER.24H PO (09:10)
[2023-03-25] MEDS: Insulin Glargine,Hum.rec.anlog 100 UNIT/ML 10 ML VIAL 45 UNIT SUBCUT ×2 (09:10→22:09)
[2023-03-25] MEDS: Fenofibrate 160 MG TABLET PO (09:11)
[2023-03-25] MEDS: Furosemide 20 MG TABLET PO (09:11)
[2023-03-25] MEDS: lisinopriL 20 MG TABLET PO ×2 (09:11→22:10)
[2023-03-25 11:00] LABS: Glucose, Whole Blood 338 mg/dL (60-115)
--- NOTE | 2023-03-25 11:22 | HO.PM.IMPN ---
Subjective Subjective Date of Service: 03/25/23 Interval History: seen and examined this morning follow up for right foot wound no overnight events feeling well this am, denies fever/chills; was seen ambulating with walker in hallway Review of Systems Review of Systems: Yes all other systems are reviewed and are negative Constitutional Constitutional: Denies chills and Denies fever(s) Cardiovascular Cardiovascular: Denies chest pain, Denies palpitations and Denies dyspnea Respiratory Respiratory: Denies cough and Denies dyspnea Gastrointestinal Gastrointestinal: Denies abdominal pain, Denies nausea and Denies vomiting Endocrine Endocrine: Denies palpitations Physical Exam Vital Signs: Vital Signs: Last Vital Signs Temp 98 F 03/25/23 07:00 Pulse 86 03/25/23 07:00 Resp 18 03/25/23 07:00 BP 143/66 H 03/25/23 07:00 Pulse Ox 96 03/25/23 07:00 O2 Del Method Room Air 03/25/23 07:00 BMI result Body Mass Index 36.3 Const: General: cooperative, no acute distress, alert and awake Nutritional Appearance: obese Resp: Effort & Inspection: normal respiratory effort, able to speak in complete sentences, no respiratory distress and no use of accessory muscles GI: Inspection: No distended Palpation (GI): Soft to palpation and nontender Skin: Other: Neuro: General: moves all extremities and CN's II-XI intact bilaterally Objective Data Active Medications Acetaminophen (Acetaminophen 325 Mg Tablet) 650 mg PO Q6H PRN PRN Reason: Pain, Mild (Pain Scale 1-3) Allopurinol (Allopurinol 100 Mg Tablet) 100 mg PO DAILY [facility] Last Admin: 03/25/23 09:09 Dose: 100 mg Documented By: ROLAN Dextrose (Dextrose 50 % 25 Gm/50 Ml Syringe) 25 gm IVPUSH Q15M PRN; Protocol PRN Reason: per Hypoglycemia Standing Ord. Enoxaparin Sodium (Enoxaparin Sodium 30 Mg/0.3 Ml Syringe) 30 mg SUBCUT Q24H [facility] Last Admin: 03/24/23 20:48 Dose: 30 mg Documented By: ARLETTE Ergocalciferol (Ergocalciferol (Vitamin D2) 1,250 Mcg Capsule) 1,250 mcg PO Q14D [facility] Fenofibrate (Fenofibrate 160 Mg Tablet) 160 mg PO DAILY [facility] Last Admin: 03/25/23 09:11 Dose: 160 mg Documented By: ROLAN Furosemide (Furosemide 20 Mg Tablet) 20 mg PO DAILY [facility]; Protocol Last Admin: 03/25/23 09:11 Dose: 20 mg Documented By: ROLAN Glucose (Glucose Gel 15 Gm Gel..Gram.) 15 gm PO Q15M PRN; Protocol PRN Reason: per Hypoglycemia Standing Ord. Hydralazine HCl (Hydralazine Hcl 25 Mg Tablet) 25 mg PO BID [facility]; Protocol Last Admin: 03/25/23 09:10 Dose: 25 mg Documented By: ROLAN Cefepime HCl 1 gm/ Sodium (Chloride) 50 mls @ 100 mls/hr IV Q12H [facility] Last Infusion: 03/24/23 23:38 Dose: 0 mls/hr Documented By: ARLETTE Vancomycin HCl 750 mg/ Sodium (Chloride) 265 mls @ 265 mls/hr IV Q24H [facility] Last Infusion: 03/24/23 19:51 Dose: 0 mls/hr Documented By: ARLETTE Insulin Glargine (Insulin Glargine,Hum.Rec.Anlog 100 Unit/Ml 10 Ml Vial) 45 unit SUBCUT BID [facility] Last Admin: 03/25/23 09:10 Dose: 45 unit Documented By: ROLAN Insulin Human Lispro (Insulin Lispro 100 Unit/Ml 3 Ml Vial) 0 unit SUBCUT QIDACHS [facility]; Protocol Last Admin: 03/25/23 07:30 Dose: Not Given Documented By: ROLAN Non-Admin Reason: No Insulin Coverage Lisinopril (Lisinopril 20 Mg Tablet) 20 mg PO BID [facility]; Protocol Last Admin: 03/25/23 09:11 Dose: 20 mg Documented By: ROLAN Melatonin (Melatonin 3 Mg Tablet) 6 mg PO BEDTIME PRN PRN Reason: Insomnia Metoprolol Succinate (Metoprolol Succinate Er 25 Mg Tab.Er.24h) 25 mg PO DAILY [facility]; Protocol Last Admin: 03/25/23 09:10 Dose: 25 mg Documented By: ROLAN Non-Formulary Medication (Insulin Nph And Regular Human) 52 unit subcut BID@0700,1900 [facility] Omeprazole (Omeprazole 20 Mg Capsule.) 20 mg PO DAILY@0630 [facility] Last Admin: 03/25/23 05:58 Dose: 20 mg Documented By: ARLETTE Ondansetron HCl (Ondansetron Hcl 4 Mg/2 Ml Vial) 4 mg IVPUSH Q8H PRN PRN Reason: Nausea and Vomiting Pharmacy Consult (Consult Rx Perform Med Rec) 1 each MISCELLANE ONCE PRN PRN Reason: Consult order Pharmacy Consult (Consult Rx Vancomycin Dosing) 1 each MISCELLANE DAILY PRN PRN Reason: Consult order Sodium Chloride (0.9 % Sodium Chloride Flush 3 Ml Syringe) 3 ml IVFLUSH QSHIFT [facility] Last Admin: 03/25/23 09:09 Dose: 3 ml Documented By: ROLNA Labs 03/25/23 05:23 03/25/23 05:23 Labs: Laboratory Results - last 24 hr 03/24/23 03/24/23 03/24/23 11:50 16:13 16:33 MCV MCH MCHC RDW Plt Count MPV Immature Gran % (Auto) Neut % (Auto) Lymph % (Auto) Anderson % (Auto) Eos % (Auto) Baso % (Auto) Lymph # (Auto) Anderson # (Auto) Eos # (Auto) Baso # (Auto) Abs Immat Gran (auto) Absolute Neuts (auto) Absolute Nucleated RBC Nucleated RBC % (auto) Anion Gap Estim Creat Clear Calc Estimated GFR POC Glucose 340 H 231 H Random Glucose Calcium Random Vancomycin 8.0 L 03/24/23 03/25/23 03/25/23 20:19 05:23 05:23 MCV 94.4 MCH 30.4 MCHC 32.2 RDW 13.2 Plt Count 230 MPV 12.3 Immature Gran % (Auto) 0.7 H Neut % (Auto) 71.8 Lymph % (Auto) 16.6 L Anderson % (Auto) 6.5 Eos % (Auto) 4.0 Baso % (Auto) 0.4 Lymph # (Auto) 1.2 Anderson # (Auto) 0.5 Eos # (Auto) 0.3 Baso # (Auto) 0.0 Abs Immat Gran (auto) 0.05 H Absolute Neuts (auto) 5.3 Absolute Nucleated RBC 0.000 Nucleated RBC % (auto) 0.0 Anion Gap 17 Estim Creat Clear Calc 24.2 Estimated GFR 25 POC Glucose 333 H Random Glucose 112 Calcium 9.6 Random Vancomycin 03/25/23 03/25/23 07:00 10:57 MCV MCH MCHC RDW Plt Count MPV Immature Gran % (Auto) Neut % (Auto) Lymph % (Auto) Anderson % (Auto) Eos % (Auto) Baso % (Auto) Lymph # (Auto) Anderson # (Auto) Eos # (Auto) Baso # (Auto) Abs Immat Gran (auto) Absolute Neuts (auto) Absolute Nucleated RBC Nucleated RBC % (auto) Anion Gap Estim Creat Clear Calc Estimated GFR POC Glucose 94 338 H Random Glucose Calcium Random Vancomycin Microbiology Microbiology Results: Microbiology 03/23/23 16:44 Blood Culture - Preliminary Blood - Venous No growth after 24 hours. 03/23/23 16:43 Blood Culture - Preliminary Blood - Venous No growth after 24 hours. Assessment and Plan (1) Diabetic foot ulcer: Status: Acute (2) Osteomyelitis: Status: Acute Plan 87-year-old female with pertinent history of essential hypertension, insulin-dependent diabetes mellitus, gastroesophageal reflux disease, mixed hyperlipidemia admitted for management nonhealing wound on right foot with cellulitis and suspected osteomyelitis #Nonhealing stage 3 diabetic R foot wound with purulent cellulitis -Continue IV vanco and zosyn -Suspect osteomyelitis with ESR 109, despite negative CT -Vascular surgery input appreciated, Arterial duplex wnl, no further intervention necessary. recommend wound care, and offloading as much as possible -alginate, 2x2 and kerlix wrap, changed 3x per week upon discharge. Outpatient follow-up with [facility]. -seen by ID - recommends 6 weeks of IV ertapenem - given underlying CKD4 will need Ennis placement when blood cultures negative x 48 hours, anticipate placement tomorrow #Insulin dependent type 2 diabetes- controlled -initially Refusing lantus/humalog - now amenable -POC glucose -Diabetic diet #Essential hypertension- reasonably controlled -Continue home antihypertensives #Chronic kidney disease stage 4 -Renal function baseline -Avoid nephrotoxins -Follow BMP #Gastroesophageal reflux disease -continue PPI #Acute on Chronic Normocytic anemia -H/H slightly below baseline in setting of acute illness -Above transfusion threshold -monitor H/H DVT prophylaxis: Lovenox Full code Pt requires ongoing inpt stay for management of infected diabetic foot ulcer with necrosis and probable osteomyelitis 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 Quality Stroke Does the patient have a stroke diagnosis?: No VTE Prior VTE?: No VTE Risk Level:: Medical - moderate - high VTE Device Contraindication: Treatment Not Indicated VTE Drug Contraindication: N/A - Med Ordered
[2023-03-25] MEDS: cefEPime HCl 1 GM in 0.9 % Sodium Chloride 50 ML IV ×2 (11:24→22:09)
[2023-03-25] MEDS: Insulin Lispro 100 UNIT/ML 3 ML VIAL SUBCUT ×3 (11:32→22:10)
--- NOTE | 2023-03-25 14:48 | P.CDIM_ITS ---
PROVIDER RESPONSE TEXT: To clarify, the appropriate diagnosis supported by the clinical indicators: Other (explain): suspected acute osteomyelitis QUERY TEXT: PHYSICIAN'S DOCUMENTATION REQUEST Date of Query: 03/25/2023 12:20 PM EDT Patient Name: Susan Laurent Admit Date: 03/23/2023 Dear Asiya Gomez, A review of the medical record indicates additional documentation may be needed. Please review below and update the documentation accordingly. Clinical Indicators: Per Hospitalist Progress Note 03/25/23: Nonhealing stage 3 diabetic R foot wound with purulent cellulitis -Continue IV vanco and zosyn -Suspect osteomyelitis with ESR 109, despite negative CT Clarify which of the following accurately represents the acuity of the Osteomyelitis. Possible options might include: Acute Acute on chronic Compensated Chronic stable condition Remission Other (explain)Clinically unable to determine (explain)Thank you, Roseanna Powers RN Use of terms such as suspected, likely, concern for, or probable (associated with a specific diagnosi s that is being evaluated, monitored, or treated as if it exists) are acceptable and can be coded in the inpatient se tting, when documented at the time of discharge. Please use your independent medical judgment in providing your response. THIS QUERY IS PART OF THE PERMANENT MEDICAL RECORD
[2023-03-25 16:00] VITALS: BP 150/65; PULSE 88; RESP 18; TEMP 36.1; O2SAT 100
[2023-03-25 16:34] LABS: Glucose, Whole Blood 190 mg/dL (60-115)
[2023-03-25 16:46] LABS: Vancomycin Random 11.2 mcg/mL (15-20)
--- NOTE | 2023-03-25 16:53 | HE.PHANOTE ---
RE: [facility] Patients level came back this evening at 11.2. Patient has only received a load and 1 dose of 750 mg, will continue with 750 mg Q24H. Predicted AUC 444 mg/L/hr. Next draw will be tomorrow 03/27 @1600.
[2023-03-25] MEDS: vancomycin HCL 750 MG in 0.9 % Sodium Chloride 250 ML 265 MG IV (18:28)
[2023-03-25 20:00] VITALS: BP 161/71; PULSE 96; RESP 18; TEMP 36.1; O2SAT 99
[2023-03-25 20:20] LABS: Glucose, Whole Blood 160 mg/dL (60-115)
[2023-03-25] MEDS: Enoxaparin Sodium 30 MG/0.3 ML SYRINGE SUBCUT (22:21)
[2023-03-26] VITALS (7 sets, daily range): BP systolic 124–165; BP diastolic 56–72; PULSE 81–100; RESP 14–19; TEMP 36.1–36.4; O2SAT 96–100
[2023-03-26] MEDS: Omeprazole 20 MG CAPSULE.DR PO (06:18)
[2023-03-26 06:42] LABS: Prothrombin Time 12.7 SEC (11.1-13.3)
[2023-03-26 06:59] LABS: Creatinine Clr Calc Pharmacy 28.8; Estimated Glomerular Filt Rate 30
[2023-03-26 07:02] LABS: Glucose, Whole Blood 126 mg/dL (60-115)
[2023-03-26] MEDS: allopurinoL 100 MG TABLET PO (08:50)
[2023-03-26] MEDS: Metoprolol Succinate ER 25 MG TAB.ER.24H PO (08:50)
[2023-03-26] MEDS: hydrALAZINE HCl 25 MG TABLET PO ×2 (08:50→20:39)
[2023-03-26] MEDS: Furosemide 20 MG TABLET PO (08:50)
[2023-03-26] MEDS: lisinopriL 20 MG TABLET PO ×2 (08:50→20:39)
[2023-03-26] MEDS: Insulin Glargine,Hum.rec.anlog 100 UNIT/ML 10 ML VIAL 45 UNIT SUBCUT ×2 (08:50→20:45)
[2023-03-26] MEDS: Fenofibrate 160 MG TABLET PO (08:50)
--- NOTE | 2023-03-26 09:24 | PC.NURSE ---
patient ate breakfast at 0800. no NPO order entered. AKILAH Love RN and AKILAH Morel RN notified. patient needs to wait 6hrs before procedure can be done. rescheduled to 2pm. Efren Augustin RN aware. patient transported back to room 352.
[2023-03-26] MEDS: cefEPime HCl 1 GM in 0.9 % Sodium Chloride 50 ML IV ×2 (10:38→23:02)
[2023-03-26 11:01] LABS: Glucose, Whole Blood 311 mg/dL (60-115)
[2023-03-26] MEDS: Insulin Lispro 100 UNIT/ML 3 ML VIAL SUBCUT ×3 (11:07→20:42)
--- NOTE | 2023-03-26 15:47 | MHC.CM.PN ---
Addendum entered by Lissy Zheng 03/27/23 10:42: PER [facility] COMMUNICATION, PTS SON IS NOT WILLING TO PAY THE COPAYS FOR PTS HOME THERAPY AND PLANS TO DISCUSS ALTERNATE TREATMENT OPTIONS WITH THE MD. CM ATTEMPTED TO CONTACT PTS SON, VM MESSAGE LEFT REQUESTING A RETURN CALL Original Note: EMR REVIEWED. PT WILL HAVE [employer] PLACED AND WILL DC HOME WITH NEW [facility] FOR [place] 03/27 AFTER MED DOSING. [facility] WILL DO SOC 03/28. CM SPOKE WITH SON WHO WILL BE ASSISTING WITH THE INFUSION AND HAS DONE IN THE PAST. REGI FROM WILL REACH OUT TO HIM TO OFFER A REFRESHER. FLUSH ORDERS FAXED TO [facility] PER LIAISON REGI. CM WILL CONTINUE TO FOLLOW FOR ANY CHANGES IN DC NEEDS.
--- NOTE | 2023-03-26 16:41 | HO.PM.IMPN ---
Subjective Subjective Date of Service: 03/26/23 Interval History: seen and examined this morning follow up for nonhealing foot wound, presume osteo feeling well, no fever chills Review of Systems Review of Systems: Yes all other systems are reviewed and are negative Constitutional Constitutional: Denies chills and Denies fever(s) Cardiovascular Cardiovascular: Denies chest pain, Denies palpitations and Denies dyspnea Respiratory Respiratory: Denies cough and Denies dyspnea Gastrointestinal Gastrointestinal: Denies abdominal pain, Denies nausea and Denies vomiting Endocrine Endocrine: Denies palpitations Physical Exam Vital Signs: Vital Signs: Last Vital Signs Temp 97 F 03/26/23 06:58 Pulse 100 03/26/23 06:58 Resp 19 03/26/23 06:58 BP 126/61 03/26/23 06:58 Pulse Ox 98 03/26/23 06:58 O2 Del Method Room Air 03/26/23 06:58 BMI result Body Mass Index 36.3 Const: General: cooperative, no acute distress, alert and awake Nutritional Appearance: obese Resp: Effort & Inspection: normal respiratory effort, able to speak in complete sentences, no respiratory distress and no use of accessory muscles GI: Inspection: No distended Palpation (GI): Soft to palpation and nontender Neuro: General: moves all extremities and CN's II-XI intact bilaterally Objective Data Active Medications Acetaminophen (Acetaminophen 325 Mg Tablet) 650 mg PO Q6H PRN PRN Reason: Pain, Mild (Pain Scale 1-3) Allopurinol (Allopurinol 100 Mg Tablet) 100 mg PO DAILY [facility] Last Admin: 03/26/23 08:50 Dose: 100 mg Documented By: SAUNDRA Dextrose (Dextrose 50 % 25 Gm/50 Ml Syringe) 25 gm IVPUSH Q15M PRN; Protocol PRN Reason: per Hypoglycemia Standing Ord. Enoxaparin Sodium (Enoxaparin Sodium 30 Mg/0.3 Ml Syringe) 30 mg SUBCUT Q24H [facility] Last Admin: 03/25/23 22:21 Dose: 30 mg Documented By: ARLETTE Ergocalciferol (Ergocalciferol (Vitamin D2) 1,250 Mcg Capsule) 1,250 mcg PO Q14D [facility] Fenofibrate (Fenofibrate 160 Mg Tablet) 160 mg PO DAILY [facility] Last Admin: 03/26/23 08:50 Dose: 160 mg Documented By: SAUNDRA Furosemide (Furosemide 20 Mg Tablet) 20 mg PO DAILY [facility]; Protocol Last Admin: 03/26/23 08:50 Dose: 20 mg Documented By: SAUNDRA Glucose (Glucose Gel 15 Gm Gel..Gram.) 15 gm PO Q15M PRN; Protocol PRN Reason: per Hypoglycemia Standing Ord. Hydralazine HCl (Hydralazine Hcl 25 Mg Tablet) 25 mg PO BID [facility]; Protocol Last Admin: 03/26/23 08:50 Dose: 25 mg Documented By: SAUNDRA Cefepime HCl 1 gm/ Sodium (Chloride) 50 mls @ 100 mls/hr IV Q12H [facility] Last Infusion: 03/26/23 11:08 Dose: 0 mls/hr Documented By: SAUNDRA Vancomycin HCl 750 mg/ Sodium (Chloride) 265 mls @ 265 mls/hr IV Q24H [facility] Last Infusion: 03/25/23 19:38 Dose: 0 mls/hr Documented By: ARLETTE Insulin Glargine (Insulin Glargine,Hum.Rec.Anlog 100 Unit/Ml 10 Ml Vial) 45 unit SUBCUT BID [facility] Last Admin: 03/26/23 08:50 Dose: 45 unit Documented By: SAUNDRA Insulin Human Lispro (Insulin Lispro 100 Unit/Ml 3 Ml Vial) 0 unit SUBCUT QIDACHS [facility]; Protocol Last Admin: 03/26/23 11:07 Dose: 8 unit Documented By: SAUNDRA Lisinopril (Lisinopril 20 Mg Tablet) 20 mg PO BID [facility]; Protocol Last Admin: 03/26/23 08:50 Dose: 20 mg Documented By: SAUNDRA Melatonin (Melatonin 3 Mg Tablet) 6 mg PO BEDTIME PRN PRN Reason: Insomnia Metoprolol Succinate (Metoprolol Succinate Er 25 Mg Tab.Er.24h) 25 mg PO DAILY [facility]; Protocol Last Admin: 03/26/23 08:50 Dose: 25 mg Documented By: SAUNDRA Non-Formulary Medication (Insulin Nph And Regular Human) 52 unit subcut BID@0700,1900 [facility] Omeprazole (Omeprazole 20 Mg Capsule.) 20 mg PO DAILY@0630 [facility] Last Admin: 03/26/23 06:18 Dose: 20 mg Documented By: ARLETTE Ondansetron HCl (Ondansetron Hcl 4 Mg/2 Ml Vial) 4 mg IVPUSH Q8H PRN PRN Reason: Nausea and Vomiting Pharmacy Consult (Consult Rx Perform Med Rec) 1 each MISCELLANE ONCE PRN PRN Reason: Consult order Pharmacy Consult (Consult Rx Vancomycin Dosing) 1 each MISCELLANE DAILY PRN PRN Reason: Consult order Sodium Chloride (0.9 % Sodium Chloride Flush 3 Ml Syringe) 3 ml IVFLUSH QSHIFT [facility] Last Admin: 03/26/23 15:09 Dose: Not Given Documented By: SAUNDRA Non-Admin Reason: See Note Labs 03/25/23 05:23 03/26/23 05:48 Labs: Laboratory Results - last 24 hr 03/25/23 03/25/23 03/26/23 16:03 20:04 05:48 PT 12.7 INR 1.0 Estim Creat Clear Calc Estimated GFR POC Glucose 160 H Random Vancomycin 11.2 L 03/26/23 03/26/23 03/26/23 05:48 06:58 10:56 PT INR Estim Creat Clear Calc 28.8 Estimated GFR 30 POC Glucose 126 H 311 H Random Vancomycin Microbiology Microbiology Results: Microbiology 03/23/23 16:44 Blood Culture - Preliminary Blood - Venous No growth after 48 hours. 03/23/23 16:43 Blood Culture - Preliminary Blood - Venous No growth after 48 hours. 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 recommend wound care, and offloading as much as possible -Outpatient follow-up with Wound Care Clinic, refer to [facility] wound clinic orders for wound care -seen by ID - recommends 6 weeks of IV ertapenem - given underlying CKD4 Ennis placement planned for today -will need first dose of ertapenem through ennis before discharge tomorrow #Insulin dependent type 2 diabetes- controlled -initially Refusing lantus/humalog - now amenable -POC glucose -Diabetic diet #Essential hypertension- reasonably controlled -Continue home antihypertensives #Chronic kidney disease stage 4 -Renal function baseline -Avoid nephrotoxins -Follow BMP #Gastroesophageal reflux disease -continue PPI #Acute on Chronic Normocytic anemia -H/H slightly below baseline in setting of acute illness -Above transfusion threshold -monitor H/H DVT prophylaxis: Lovenox Full code dispo - home likely tomorrow Pt requires ongoing inpt stay for management of infected diabetic foot ulcer with necrosis and probable osteomyelitis requiring IV abx and ennis placement for custodial antibiotics Time Spent With Patient Time: Total time managing care of this patient today ____ minutes. Quality Stroke Does the patient have a stroke diagnosis?: No VTE Prior VTE?: No VTE Risk Level:: Medical - moderate - high VTE Device Contraindication: Treatment Not Indicated VTE Drug Contraindication: N/A - Med Ordered
[2023-03-26] MEDS: Lidocaine HCl 1 % MPF 5 ML VIAL 10 ML SUBCUT (16:52)
[2023-03-26] MEDS: vancomycin HCL 750 MG in 0.9 % Sodium Chloride 250 ML 265 MG IV (17:44)
[2023-03-26 17:54] LABS: Glucose, Whole Blood 156 mg/dL (60-115)
--- NOTE | 2023-03-26 19:09 | HE.PHANOTE ---
PT WAS IN OR, DID NOT GET TROUGH DRAWN AT THE TIME. NOT SURE WHY THERE WAS NO FOLLOWUP ON ORDER FOR LAB THAT WAS STILL ACTIVE, PT GOT EVENING DOSE. WILL RESCHEDULE LEVEL FOR TOMORROW
[2023-03-26] MEDS: 0.9 % Sodium Chloride Flush 3 ML SYRINGE IVFLUSH (19:13)
[2023-03-26 20:03] LABS: Glucose, Whole Blood 157 mg/dL (60-115)
[2023-03-26] MEDS: Enoxaparin Sodium 30 MG/0.3 ML SYRINGE SUBCUT (20:41)
[2023-03-26] MEDS: Heparin Sodium,Porcine Flush 50 UNITS, 0.9 % Sodium Chloride Flush 5 ML IVFLUSH (23:59)
[2023-03-27] MEDS: Omeprazole 20 MG CAPSULE.DR PO (05:31)
[2023-03-27 06:01] LABS: Creatinine Clr Calc Pharmacy 27.5; Estimated Glomerular Filt Rate 29
[2023-03-27 07:15] LABS: Glucose, Whole Blood 81 mg/dL (60-115)
[2023-03-27 07:21] VITALS: BP 136/67; PULSE 85; RESP 18; TEMP 36.6; O2SAT 97
[2023-03-27] MEDS: Insulin Glargine,Hum.rec.anlog 100 UNIT/ML 10 ML VIAL 45 UNIT SUBCUT ×2 (07:59→21:06)
[2023-03-27] MEDS: Furosemide 20 MG TABLET PO (08:00)
[2023-03-27] MEDS: Metoprolol Succinate ER 25 MG TAB.ER.24H PO (08:00)
[2023-03-27] MEDS: lisinopriL 20 MG TABLET PO ×2 (08:00→20:15)
[2023-03-27] MEDS: 0.9 % Sodium Chloride Flush 3 ML SYRINGE IVFLUSH ×3 (08:00→19:40)
[2023-03-27] MEDS: Fenofibrate 160 MG TABLET PO (08:00)
[2023-03-27] MEDS: hydrALAZINE HCl 25 MG TABLET PO ×2 (08:00→20:15)
[2023-03-27] MEDS: allopurinoL 100 MG TABLET PO (08:00)
[2023-03-27] MEDS: Ertapenem Sodium 0.5 GM in 0.9 % Sodium Chloride 50 ML IV (09:35)
[2023-03-27] MEDS: Heparin Sodium,Porcine Flush 50 UNITS, 0.9 % Sodium Chloride Flush 5 ML IVFLUSH ×2 (10:14→16:53)
[2023-03-27 11:58] LABS: Glucose, Whole Blood 193 mg/dL (60-115)
[2023-03-27] MEDS: Insulin Lispro 100 UNIT/ML 3 ML VIAL SUBCUT ×3 (12:18→21:06)
--- NOTE | 2023-03-27 13:36 | P.PNIM_ITS ---
Subjective Subjective Date of Service: 03/27/23 Interval History: seen and examined this morning follow up for nonhealing foot wound, presume osteo feeling well, no fever chills Review of Systems Review of Systems: Yes all other systems are reviewed and are negative Constitutional Constitutional: Denies chills and Denies fever(s) Cardiovascular Cardiovascular: Denies chest pain, Denies palpitations and Denies dyspnea Respiratory Respiratory: Denies cough and Denies dyspnea Gastrointestinal Gastrointestinal: Denies abdominal pain, Denies nausea and Denies vomiting Endocrine Endocrine: Denies palpitations Physical Exam Vital Signs: Vital Signs: Last Vital Signs Temp 97.9 F 03/27/23 07:21 Pulse 85 03/27/23 07:21 Resp 18 03/27/23 07:21 BP 136/67 03/27/23 07:21 Pulse Ox 97 03/27/23 07:21 O2 Del Method Room Air 03/27/23 07:21 BMI result Body Mass Index 36.3 Appearing in no acute distress lung sounds are clear to auscultation heart regular rate rhythm, clear S1, S2 positive bowel sounds, abdomen is soft, nontender neuro patient is alert x3, no focal deficits Objective Data Active Medications Acetaminophen (Acetaminophen 325 Mg Tablet) 650 mg PO Q6H PRN PRN Reason: Pain, Mild (Pain Scale 1-3) Allopurinol (Allopurinol 100 Mg Tablet) 100 mg PO DAILY [facility] Last Admin: 03/27/23 08:00 Dose: 100 mg Documented By: ROLAN Heparin Sodium (Porcine) 50 (units/ Sodium Chloride 5 ml) 0 units IVFLUSH QSHIFT [facility] Last Admin: 03/27/23 10:14 Dose: 50 unit Documented By: ROLAN Comments: given after IV abx Dextrose (Dextrose 50 % 25 Gm/50 Ml Syringe) 25 gm IVPUSH Q15M PRN; Protocol PRN Reason: per Hypoglycemia Standing Ord. Enoxaparin Sodium (Enoxaparin Sodium 30 Mg/0.3 Ml Syringe) 30 mg SUBCUT Q24H [facility] Last Admin: 03/26/23 20:41 Dose: 30 mg Documented By: TON Ergocalciferol (Ergocalciferol (Vitamin D2) 1,250 Mcg Capsule) 1,250 mcg PO Q14D [facility] Fenofibrate (Fenofibrate 160 Mg Tablet) 160 mg PO DAILY [facility] Last Admin: 03/27/23 08:00 Dose: 160 mg Documented By: ROLAN Furosemide (Furosemide 20 Mg Tablet) 20 mg PO DAILY [facility]; Protocol Last Admin: 03/27/23 08:00 Dose: 20 mg Documented By: ROLAN Glucose (Glucose Gel 15 Gm Gel..Gram.) 15 gm PO Q15M PRN; Protocol PRN Reason: per Hypoglycemia Standing Ord. Hydralazine HCl (Hydralazine Hcl 25 Mg Tablet) 25 mg PO BID [facility]; Protocol Last Admin: 03/27/23 08:00 Dose: 25 mg Documented By: ROLAN Insulin Glargine (Insulin Glargine,Hum.Rec.Anlog 100 Unit/Ml 10 Ml Vial) 45 unit SUBCUT BID [facility] Last Admin: 03/27/23 07:59 Dose: 45 unit Documented By: ROLAN Insulin Human Lispro (Insulin Lispro 100 Unit/Ml 3 Ml Vial) 0 unit SUBCUT QIDACHS [facility]; Protocol Last Admin: 03/27/23 12:18 Dose: 2 unit Documented By: ROLAN Lisinopril (Lisinopril 20 Mg Tablet) 20 mg PO BID [facility]; Protocol Last Admin: 03/27/23 08:00 Dose: 20 mg Documented By: ROLAN Melatonin (Melatonin 3 Mg Tablet) 6 mg PO BEDTIME PRN PRN Reason: Insomnia Metoprolol Succinate (Metoprolol Succinate Er 25 Mg Tab.Er.24h) 25 mg PO DAILY [facility]; Protocol Last Admin: 03/27/23 08:00 Dose: 25 mg Documented By: ROLAN Non-Formulary Medication (Insulin Nph And Regular Human) 52 unit subcut BID@0700,1900 [facility] Omeprazole (Omeprazole 20 Mg Capsule.) 20 mg PO DAILY@0630 [facility] Last Admin: 03/27/23 05:31 Dose: 20 mg Documented By: TON Ondansetron HCl (Ondansetron Hcl 4 Mg/2 Ml Vial) 4 mg IVPUSH Q8H PRN PRN Reason: Nausea and Vomiting Pharmacy Consult (Consult Rx Perform Med Rec) 1 each MISCELLANE ONCE PRN PRN Reason: Consult order Pharmacy Consult (Consult Rx Vancomycin Dosing) 1 each MISCELLANE DAILY PRN PRN Reason: Consult order Sodium Chloride (0.9 % Sodium Chloride Flush 3 Ml Syringe) 3 ml IVFLUSH QSHIFT [facility] Last Admin: 03/27/23 08:00 Dose: 3 ml Documented By: ROLAN Labs 03/25/23 05:23 03/27/23 05:34 Labs: Laboratory Results - last 24 hr 03/26/23 03/26/23 03/27/23 17:48 19:48 05:34 Estim Creat Clear Calc 27.5 Estimated GFR 29 POC Glucose 156 H 157 H 03/27/23 03/27/23 06:58 11:42 Estim Creat Clear Calc Estimated GFR POC Glucose 81 193 H Assessment and Plan (1) Osteomyelitis: Status: Acute Plan 87-year-old female with pertinent history of essential hypertension, insulin- dependent diabetes mellitus, gastroesophageal reflux disease, mixed hyperlipidemia admitted for management nonhealing wound on right foot with cell ulitis and suspected osteomyelitis Nonhealing stage 3 diabetic R foot wound with purulent cellulitis Continue IV vanco and zosyn for now Suspect osteomyelitis with ESR 109, despite negative CT Vascular surgery input appreciated, Arterial duplex wnl, no further intervention necessary. recommend wound care, and offloading as much as possible Outpatient follow-up with Wound Care Clinic, refer to [facility] wound clinic orders for wound care seen by ID - recommends 6 weeks of IV ertapenem - Ma placed Insulin dependent type 2 diabetes- controlled POC glucose Diabetic diet Essential hypertension- reasonably controlled home antihypertensives Chronic kidney disease stage 4 Renal function baseline Avoid nephrotoxins Follow BMP Gastroesophageal reflux disease continue PPI Acute on Chronic Normocytic anemia H/H slightly below baseline in setting of acute illness Above transfusion threshold monitor H/H DVT prophylaxis: Lovenox Full code Attending Dr. Duke HERNANDEZ will likely need STR as patient unable to afford OOP cost for abx services at home Pt requires ongoing inpt stay for management of infected diabetic foot ulcer with necrosis and probable osteomyelitis requiring IV abx and ma placement for terminal carman antibiotics Time Spent With Patient Time: Total time managing care of this patient today ____ minutes. Quality Stroke Does the patient have a stroke diagnosis?: No VTE Prior VTE?: No VTE Risk Level:: Medical - moderate - high VTE Device Contraindication: Treatment Not Indicated VTE Drug Contraindication: N/A - Med Ordered
--- NOTE | 2023-03-27 13:44 | PM.DS ---
DS: Providers Provider Date of Service: 03/28/23 Date of admission: 03/23/23 19:02 Primary care physician: Christopher Zamudio MD Consults: 03/23/23 19:11 Consult to Vascular Surgery Routine Consulting Provider: [facility] Vascular Services Reason for consultation: diabetic non healing wound 03/24/23 09:35 Consult to Infectious Diseases Routine Consulting Provider: [facility] Infectious Disease Reason for consultation: osteo r foot DS: Diagnosis Discharge Diagnosis (1) Osteomyelitis: Status: Acute DS: Summary Hospital Course Hospital Course: History and physical as per admitting provider. This is a 87-year-old female with pertinent history of essential hypertension, insulin-dependent diabetes mellitus, gastroesophageal reflux disease, mixed hyperlipidemia who was sent from Wound Clinic for evaluation of nonhealing wound on right foot.? Patient states she 1st noticed over wound 3 days prior to presentation.? It has been draining with foul-smelling purulent fluid.? Does not know if she tried oral antibiotics.? She denies fever, chills, nausea, vomiting, chest discomfort, palpitations, shortness of breath, abdominal pain, changes in urinary or bowel habits.? Denies similar complaints of nonhealing wound or skin infection in the past. In the emergency department, x-ray with soft tissue swelling without osseous abnormality 87-year-old woman treated for nonhealing stage III diabetic foot ulcer with purulence cellulitis suspicious for osteomyelitis with elevated ESR of 109. She was seen evaluated by vascular surgery and is status post arterial duplex which was within normal limits. Patient is seen at the wound clinic taking continue this. She will be on 6 weeks of IV ertapenem via Ma catheter. She will have to come back to the IR department to this removed after 6 weeks. She lives with her son who provides a lot of assistance and she will also have visiting nurse services. Acute on chronic normocytic anemia. H&H was above transfusion threshold so no need to transfuse. Remains stable Diabetes mellitus. Continue home regimen Hypertension. Continue home medications Chronic kidney disease stage 4. Baseline GERD. Ppi Time Spent with Patient Time attestation: Total time managing care of this patient today ____ minutes. Discharge coordination time: Greater than 30 minutes Quality: Safe Use of Opioids Does Pt have an Active Cancer Diagnosis on the Problem List?: No Quality: Stroke Does the patient have a stroke diagnosis?: No Physical Exam Vital Signs: Vital Signs: Last Vital Signs Temp 97.9 F 03/27/23 07:21 Pulse 85 03/27/23 07:21 Resp 18 03/27/23 07:21 BP 136/67 03/27/23 07:21 Pulse Ox 97 03/27/23 07:21 O2 Del Method Room Air 03/27/23 07:21 BMI result Body Mass Index 36.3 Appearing in no acute distressd lung sounds are clear to auscultation heart regular rate rhythm, clear S1, S2 positive bowel sounds, abdomen is soft, nontender neuro patient is alert x3, no focal deficits Right foot stage III diabetic foot ulcer to lateral aspect of foot, some cream colored drainage DS: Data Data Completed and Pending Labs on day of discharge: Laboratory Results - last 24 hr 03/26/23 03/26/23 03/27/23 17:48 19:48 05:34 Creatinine 1.68 H Estim Creat Clear Calc 27.5 Estimated GFR 29 POC Glucose 156 H 157 H 03/27/23 03/27/23 06:58 11:42 Creatinine Estim Creat Clear Calc Estimated GFR POC Glucose 81 193 H Preliminary micro results at discharge 03/23/23 16:44 Blood Culture - Preliminary Blood - Venous No growth after 48 hours. 03/23/23 16:43 Blood Culture - Preliminary Blood - Venous No growth after 48 hours. Discharge Plan Discharge Anticipated Discharge Date/Time: 03/28/23 09:22 Patient Disposition: Home Health Service Discharge Diagnosis: Nonhealing stage III diabetic foot ulcer Purulence cellulitis Referrals: Christopher Zamudio MD [Primary Care Provider] - 1 Week Discharge Medications: New ertapenem 1 gram recon soln 1 g IV DAILY 42 Days Qty: 10 0RF (DME) off loading boot Kit See Rx Instructions .Route Qty: 1 0RF Rx Instructions: As directed Continued (DME) diabetic supplies, miscellan. Misc See Rx Instructions .ROUTE .MEDSUPPLY Qty: 1 2RF Rx Instructions: DIABETIC SHOES WITH 3 INSERTS fenofibrate 160 mg tablet 160 mg PO DAILY Qty: 90 8RF hydralazine 25 mg tablet 25 mg PO BID 90 Days Qty: 180 8RF metoprolol succinate 25 mg tablet extended release 24 hr 25 mg PO DAILY 90 Days Qty: 90 8RF lisinopril 20 mg tablet 20 mg PO BID Qty: 180 7RF allopurinol 100 mg tablet 100 mg PO DAILY Qty: 90 7RF (DME) blood sugar diagnostic Strip See Rx Instructions .ROUTE .MEDSUPPLY Qty: 300 8RF Rx Instructions: to check blood sugar three times a day (DME) lancets [Microlet Lancet] [facility] See Rx Instructions .ROUTE .COMPLEX Qty: 100 3RF Dose Instruction: USE DIRECTED TO CHECK BLOOD GLUCOSE THREE TIMES DAILY Rx Instructions: USE DIRECTED TO CHECK BLOOD GLUCOSE THREE TIMES DAILY furosemide 20 mg tablet 20 mg PO DAILY Qty: 90 8RF omeprazole 20 mg capsule,delayed release(DR/EC) 20 mg PO DAILY Qty: 90 8RF insulin NPH and regular human 100 unit/mL (70-30) suspension 52 unit subcut BID@0700,1900 (DME) Ultra-Light Rollator Misc See Rx Instructions .Route Qty: 1 0RF Rx Instructions: To use daily ergocalciferol (vitamin D2) 1,250 mcg (50,000 unit) capsule 1,250 mcg PO Q14D Discharge Orders: Discharge Order (Routine); Ordered 03/28/23 Ordered By: Yaquelin Matthews Diet: Advance to usual diet Activity on Discharge: As tolerated Stand Alone Forms: Patient Portal Discharge page Care Plan Goals: -Continue antibiotics and wound care as per visiting nurse services and wound care clinic -Six weeks of ertapenem, stop date 05/09/2023. -You will need to make an appointment with the Interventional Radiology Department ay [facility] to remove the Ma catheter. Contact your primary care provider to have this scheduled. Health Concerns: Nonhealing stage III diabetic foot ulcer Purulent cellulitis Plan of Treatment: Follow up with primary care provider as needed Take all medications as prescribed Assessment: See discharge summary
[2023-03-27 16:00] VITALS: BP 150/70; PULSE 92; RESP 18; TEMP 36.1; O2SAT 98
[2023-03-27 16:45] LABS: Glucose, Whole Blood 228 mg/dL (60-115)
[2023-03-27 17:52] LABS: Vancomycin Random 15.3 mcg/mL (15-20)
[2023-03-27 19:21] VITALS: BP 122/80; PULSE 105; RESP 16; TEMP 36.1; O2SAT 97
[2023-03-27] MEDS: Enoxaparin Sodium 30 MG/0.3 ML SYRINGE SUBCUT (20:15)
[2023-03-27 20:57] LABS: Glucose, Whole Blood 264 mg/dL (60-115)
[2023-03-28] MEDS: Heparin Sodium,Porcine Flush 50 UNITS, 0.9 % Sodium Chloride Flush 5 ML IVFLUSH ×2 (00:12→09:02)
[2023-03-28 01:51] VITALS: BP 144/66; PULSE 97; RESP 16; TEMP 36.3; O2SAT 96
[2023-03-28] MEDS: Omeprazole 20 MG CAPSULE.DR PO (06:13)
[2023-03-28 06:40] LABS: Creatinine Clr Calc Pharmacy 30.5; Estimated Glomerular Filt Rate 33
[2023-03-28 07:57] LABS: Glucose, Whole Blood 70 mg/dL (60-115)
[2023-03-28 08:00] VITALS: BP 158/70; PULSE 92; RESP 17; TEMP 36.2; O2SAT 98
[2023-03-28] MEDS: allopurinoL 100 MG TABLET PO (09:02)
[2023-03-28] MEDS: Metoprolol Succinate ER 25 MG TAB.ER.24H PO (09:02)
[2023-03-28] MEDS: Furosemide 20 MG TABLET PO (09:02)
[2023-03-28] MEDS: lisinopriL 20 MG TABLET PO (09:02)
[2023-03-28] MEDS: 0.9 % Sodium Chloride Flush 3 ML SYRINGE IVFLUSH (09:02)
[2023-03-28] MEDS: hydrALAZINE HCl 25 MG TABLET PO (09:02)
[2023-03-28] MEDS: Fenofibrate 160 MG TABLET PO (09:02)
[2023-03-28] MEDS: Ertapenem Sodium 1 GM in 0.9 % Sodium Chloride 50 ML IV (09:54)
[2023-03-28 11:49] LABS: Glucose, Whole Blood 156 mg/dL (60-115)
--- NOTE | 2023-03-28 11:51 | MHC.CM.PN ---
pt dcd today spoke with bharat at [facility] who confirmed everthing is all set for delivery tomorrow called and spoke with [facility] clinical food production supervisor caroilne who confirmed they will be into teach tomorrow by 10 am as that is the time pt needs her next dose son to seed cone picker pt at 12;30
[2023-03-28] MEDS: Insulin Lispro 100 UNIT/ML 3 ML VIAL SUBCUT (11:58)
== END 2023-03-28 13:15 | disposition home health service (06) | DRG 638 ==
LOC: HO.ED 18:26 → HO.EDOVER 19:15 → HO.S3 19:31
PROVIDERS: Physician Assistant; Physician Assistant Medical; Radiology Diagnostic Radiology; Admitting Provider Student in an Organized Health Care Education/Training Program; Emergency Provider Student in an Organized Health Care Education/Training Program; PCP Internal Medicine; Visit Provider Nurse Practitioner Acute Care
PROC: 02HV33Z Insertion of Infusion Device into Superior Vena Cava, Percutaneous Approach (ICD-10-PCS; principal; 2023-03-26 11:30)
DX: E11.69 Type 2 diabetes mellitus with other specified complication (principal); E11.52 Type 2 diabetes mellitus with diabetic peripheral angiopathy with gangrene; L03.115 Cellulitis of right lower limb; M86.171 Other acute osteomyelitis, right ankle and foot; N17.9 Acute kidney failure, unspecified; N18.4 Chronic kidney disease, stage 4 (severe); I12.9 Hypertensive chronic kidney disease with stage 1 through stage 4 chronic kidney disease, or unspecified chronic kidney disease; E11.621 Type 2 diabetes mellitus with foot ulcer; E11.628 Type 2 diabetes mellitus with other skin complications; L97.519 Non-pressure chronic ulcer of other part of right foot with unspecified severity; K21.9 Gastro-esophageal reflux disease without esophagitis; E11.22 Type 2 diabetes mellitus with diabetic chronic kidney disease; D63.1 Anemia in chronic kidney disease; E78.2 Mixed hyperlipidemia; Z79.4 Long term (current) use of insulin; Z79.899 Other long term (current) drug therapy
CPT/HCPCS: 36415; 36556; 73630; 73700; 80048; 80076; 80202; 81003; 82565; 82947; 83605; 83735; 85025; 85610; 85652; 86140; 87040; 93005; 93923; 93925; 99152; 99153; 99285; C1751; C1769; J0692; J1335; J1642; J1650; J2543; J3370

== ENCOUNTER → 2023-03-23 17:18 | Outpatient (BNV) | payer MEDICARE, SELFPAY | PROVIDERS: Admitting Provider Student in an Organized Health Care Education/Training Program; Emergency Provider Student in an Organized Health Care Education/Training Program; PCP Internal Medicine; Visit Provider Internal Medicine | DX: R94.31 Abnormal electrocardiogram [ECG] [EKG] (principal) | CPT/HCPCS: 93010 ==

== ENCOUNTER 2023-03-23 19:02 | Outpatient (BNV) | payer MEDICARE, SELFPAY | END 2023-03-26 16:49 | PROVIDERS: Admitting Provider Student in an Organized Health Care Education/Training Program; Emergency Provider Student in an Organized Health Care Education/Training Program; PCP Internal Medicine; Visit Provider Radiology Diagnostic Radiology | DX: M86.679 Other chronic osteomyelitis, unspecified ankle and foot (principal) | CPT/HCPCS: 36556 ==

== ENCOUNTER → 2023-03-23 19:02 | Outpatient (BNV) | payer MEDICARE, SELFPAY | PROVIDERS: Admitting Provider Student in an Organized Health Care Education/Training Program; Emergency Provider Student in an Organized Health Care Education/Training Program; PCP Internal Medicine; Visit Provider Internal Medicine | DX: E11.621 Type 2 diabetes mellitus with foot ulcer (principal); L97.509 Non-pressure chronic ulcer of other part of unspecified foot with unspecified severity; L03.90 Cellulitis, unspecified | CPT/HCPCS: 99222 ==

== ENCOUNTER → 2023-03-23 19:02 | Outpatient (BNV) | payer MEDICARE, SELFPAY | PROVIDERS: Admitting Provider Student in an Organized Health Care Education/Training Program; Emergency Provider Student in an Organized Health Care Education/Training Program; PCP Internal Medicine; Visit Provider Student in an Organized Health Care Education/Training Program | DX: M86.9 Osteomyelitis, unspecified (principal) | CPT/HCPCS: 99222; 99232; 99233; 99239 ==

== ENCOUNTER → 2023-03-23 19:02 | Outpatient (BNV) | payer MEDICARE, SELFPAY | PROVIDERS: Admitting Provider Student in an Organized Health Care Education/Training Program; Emergency Provider Student in an Organized Health Care Education/Training Program; PCP Internal Medicine; Visit Provider Surgery Vascular Surgery | DX: E11.621 Type 2 diabetes mellitus with foot ulcer (principal); L97.519 Non-pressure chronic ulcer of other part of right foot with unspecified severity | CPT/HCPCS: 99222; 99232 ==

== ENCOUNTER 2023-03-30 13:17 | Outpatient (REF) | payer MEDICARE, SELFPAY ==
[2023-03-30 13:24] LABS: MANUAL DIFF FLAG NO
[2023-03-30 13:38] LABS: Basophils Percent Auto 0.3 % (0-2); Eosinophils Absolute Auto 0.2 X10*3/uL (0.0-0.4); Eosinophils Percent Auto 2.6 % (0-4); Hematocrit 26.8 % (37.0-47.0); Hemoglobin 8.6 g/dl (12.0-16.0); Imm Gran Abs Auto 0.03 X10*3/uL (0.00-0.03); Imm Gran Pct Auto 0.5 % (0.0-0.4); Lymphocytes Absolute Auto 1.2 X10*3/uL (1.2-4.9); Lymphocytes Percent Auto 19.3 % (20-40); Mean Corpuscular HGB Conc 32.1 g/dl (31.0-35.0); Mean Corpuscular Hemoglobin 30.3 pg (27.0-33.0); Mean Corpuscular Volume 94.4 fL (80.0-98.0); Monocytes Absolute Auto 0.3 X10*3/uL (0.1-1.2); Neutrophils Absolute Auto 4.4 x10*3/uL (2.0-8.3); Neutrophils Percent Auto 72.3 % (45-73); Platelet Count 264 X10*3/uL (160-400); Red Blood Count 2.84 X10*6/uL (4.20-5.50); Red Cell Distribution Width 13.2 % (11.0-16.0); White Blood Count 6.1 X10*3/uL (4.8-10.8)
[2023-03-30 14:37] LABS: Blood Urea Nitrogen 58 mg/dL (9-16)
== END 2023-03-30 13:18 | disposition home or self-care (01) ==
LOC: HO.HVNA 13:17
PROVIDERS: Visit Provider Internal Medicine
DX: E11.621 Type 2 diabetes mellitus with foot ulcer (principal); L03.90 Cellulitis, unspecified; Z79.2 Long term (current) use of antibiotics
CPT/HCPCS: 36415; 84520; 85025

== ENCOUNTER 2023-04-06 13:22 | Outpatient (REF) | payer MEDICARE, SELFPAY ==
[2023-04-06 13:39] LABS: MANUAL DIFF FLAG NO
[2023-04-06 13:42] LABS: Basophils Percent Auto 0.4 % (0-2); Eosinophils Absolute Auto 0.1 X10*3/uL (0.0-0.4); Eosinophils Percent Auto 2.2 % (0-4); Hematocrit 25.9 % (37.0-47.0); Hemoglobin 8.3 g/dl (12.0-16.0); Imm Gran Abs Auto 0.02 X10*3/uL (0.00-0.03); Imm Gran Pct Auto 0.4 % (0.0-0.4); Lymphocytes Percent Auto 19.8 % (20-40); Mean Corpuscular Hemoglobin 30.5 pg (27.0-33.0); Mean Corpuscular Volume 95.2 fL (80.0-98.0); Mean Platelet Volume 12.4 fL (9.4-12.3); Monocytes Absolute Auto 0.3 X10*3/uL (0.1-1.2); Neutrophils Absolute Auto 3.6 x10*3/uL (2.0-8.3); Neutrophils Percent Auto 72.2 % (45-73); Platelet Count 243 X10*3/uL (160-400); Red Blood Count 2.72 X10*6/uL (4.20-5.50); Red Cell Distribution Width 13.7 % (11.0-16.0)
[2023-04-06 13:58] LABS: Blood Urea Nitrogen 56 mg/dL (9-16); Estimated Glomerular Filt Rate 18
== END 2023-04-06 13:23 | disposition home or self-care (01) ==
LOC: HO.HVNA 13:22
PROVIDERS: Visit Provider Internal Medicine
DX: E11.621 Type 2 diabetes mellitus with foot ulcer (principal); Z79.2 Long term (current) use of antibiotics
CPT/HCPCS: 36415; 82565; 84520; 85025

== ENCOUNTER 2023-04-07 11:00 | Outpatient (AMB) | payer MEDICARE, SELFPAY ==
[2023-04-07 11:18] VITALS: BP 150/80; PULSE 97; O2SAT 98
--- NOTE | 2023-04-07 11:18 | MHC.OFFVIS ---
Intake Vital Signs 04/07/23 11:18 BP 150/80 H Blood Pressure Location Lt brachial Position Sitting Pulse 97 Pulse Source Pulse Oximeter Pulse Oximetry (%) 98 Intake Visit Reasons: ref.[facility],Osteo.R foot Allergies codeine [CODEINE] Allergy (Intermediate, Verified 04/07/23 11:18) BACK PAIN pollen extracts [POLLEN] Allergy (Mild, Verified 04/07/23 11:18) SINUS IRRITATION HPI ref.[facility],Osteo.R foot HPI Details She is tolerating Ertapenem for foot infection She feels well. Unfortunately her creatinine has increased to 2.26 with GFR of 15. She is done with antibiotics on 05/04. [facility] Medical History Diabetes mellitus Hx of type A viral hepatitis Hyperlipidemia Obesity Surgical History H/O varicose vein ligation History of biopsy History of cholecystectomy History of excision of lesion History of surgical removal of skin lesion Family History Father Gastric cancer Mother Acute CVA (cerebrovascular accident) Diabetes Brother Colon cancer Social History Household Members: Children Housing: House Do you presently have visiting nurse or other home services: No Alcohol intake: never Patient Tobacco Use Status: Never used Tobacco e-Cigarette/Vaping Use: Never Used Second Hand Smoke Exposure: No service: No Current occupational status: retired Cognitive needs: No Hearing needs: No Vision needs: Yes Review of Systems Const All systems reviewed & are unremarkable except as noted in HPI and below Physical Exam Vital Signs: Last Vital Signs Pulse 97 04/07/23 11:18 BP 150/80 H 04/07/23 11:18 Pulse Ox 98 04/07/23 11:18 Const Other: General: cooperative Orientation/consciousness: patient oriented x3 HEENT Head: Yes normal to inspection Mouth: Normal oral and palatal mucosa present Eyes General: appearance normal, both eyes and all related structures Pupils: Equal, round and reactive pupils present Resp Effort & Inspection: normal respiratory effort Cardio Rate: regular rate Rhythm: regular rhythm GI Palpation (GI): Soft to palpation and nontender General: Yes no CVA tenderness Back/Spine/Pelvis Back: no CVA tenderness Skin General skin exam: no rashes or lesions noted Neuro General: patient oriented x3 Cranial nerves: Yes CN's II-XII intact bilaterally and Yes Equal, round and reactive pupils present Extrem General: Yes normal to inspection Psych Appearance: grossly normal Assessment & Plan Assessment & Plan (1) Diabetic foot ulcer: Comment: She has been taking Ertapenem. Code(s): E11.621 - Type 2 diabetes mellitus with foot ulcer; L97.509 - Non-pressure chronic ulcer of other part of unspecified foot with unspecified severity Plan: Increase dose due to decreased GFR. See as scheduled. Medications: New ertapenem pull PICC on 05/04 and stop IV antibiotics 0.5 grams IM DAILY 28 days 28 ea 0RF osteomyelitis ertapenem pull PICC on 05/04 and stop IV antibiotics 0.5 grams IM DAILY 28 days 28 ea 0RF osteomyelitis ertapenem pull PICC on 05/04 and stop IV antibiotics 0.5 grams IM DAILY 28 days 28 ea 0RF osteomyelitis ertapenem pull PICC on 05/04 and stop IV antibiotics 0.5 grams IV DAILY 28 days 28 ea 0RF osteomyelitis ertapenem pull PICC on 05/04 and stop IV antibiotics 0.5 grams IV DAILY 28 ea 0RF osteomyelitis 28 days Discontinued insulin NPH and regular human 100 unit/mL (70-30) 50-60U in the AM and 45-55U in the PM subcut 2 times a day; 90 days 100 mL 8RF Coding Level of Care Code Est Pt Level 3 (27933) Diagnoses Diabetic foot ulcer E11.621; L97.509
== END 2023-04-07 11:53 | disposition home or self-care (01) ==
LOC: HO.HID 11:00
PROVIDERS: PCP Internal Medicine; Visit Provider Internal Medicine
DX: E11.621 Type 2 diabetes mellitus with foot ulcer (principal); L97.509 Non-pressure chronic ulcer of other part of unspecified foot with unspecified severity
CPT/HCPCS: 99213

== ENCOUNTER → 2023-04-07 11:00 | Outpatient (BNVA) | payer MEDICARE, SELFPAY | PROVIDERS: PCP Internal Medicine; Visit Provider Internal Medicine | DX: E11.621 Type 2 diabetes mellitus with foot ulcer (principal); L97.509 Non-pressure chronic ulcer of other part of unspecified foot with unspecified severity; E11.69 Type 2 diabetes mellitus with other specified complication; M86.9 Osteomyelitis, unspecified | CPT/HCPCS: 99212 ==

== ENCOUNTER 2023-04-13 12:50 | Outpatient (AMB) | payer MEDICARE, SELFPAY ==
--- NOTE | 2023-04-13 12:58 | MHC.OFFVIS ---
Intake Vital Signs 04/13/23 13:02 Height 5 ft 5 in Intake Visit Reasons: 2 wk HDF 03/27/23, non healing wounds Intake Note: follow up hospital stay for non healing right foot wound, pt has ennis cath for IV antibiotics. Pt states that visiting nurse comes 1 x per week and bandage needs to be changed QOD. ? procedure done on her leg by , possibly at [facility] Accompanied by: Son Allergies codeine [CODEINE] Allergy (Intermediate, Verified 04/13/23 13:11) BACK PAIN pollen extracts [POLLEN] Allergy (Mild, Verified 04/13/23 13:11) SINUS IRRITATION HPI 2 wk HDF 03/27/23, non healing wounds HPI Details Very pleasant 87-year-old female presents for hospital follow-up regarding non healing right foot wound. This lateral foot wound that was worked up. She has undergone noninvasive arterial testing. She is being followed by the [facility]. In addition she is receiving IV antibiotics and is under the care of Infectious Disease. She reports that the antibiotics will discontinue on May 09. She now presents for routine follow-up of her foot. [facility] Medical History Diabetes mellitus Hx of type A viral hepatitis Hyperlipidemia Obesity Surgical History H/O varicose vein ligation History of biopsy History of cholecystectomy History of excision of lesion History of surgical removal of skin lesion Family History Father Gastric cancer Mother Acute CVA (cerebrovascular accident) Diabetes Brother Colon cancer Social History Household Members: Children Housing: House Do you presently have visiting nurse or other home services: No Alcohol intake: never Patient Tobacco Use Status: Never used Tobacco e-Cigarette/Vaping Use: Never Used Second Hand Smoke Exposure: No service: No Current occupational status: retired Cognitive needs: No Hearing needs: No Vision needs: Yes Review of Systems Const All systems reviewed & are unremarkable except as noted in HPI and below Reports no additional complaints ENT Reports Normal hearing present Card Denies chest pain, Denies chest pain at rest, Denies chest pain with activity and Denies pedal edema Resp Denies cough GI Denies abdominal pain Musc Denies abnormal gait, Denies muscle cramps and Denies radiating pain into limb Skin/Breast Denies skin ulcer and Denies wounds Neuro Reports Normal hearing present and Denies abnormal gait Psych Reports no additional complaints Physical Exam Const General: cooperative, healthy appearing and comfortable Orientation/consciousness: oriented to person, oriented to place and oriented to time HEENT Head: Yes normal to inspection Neck Neck: Yes normal visual inspection Carotids: no bruits Chest Chest palpation & inspection: normal inspection of the chest Resp Effort & Inspection: normal respiratory effort and able to speak in complete sentences Auscultation: clear to auscultation bilaterally, no crackles, no rales, no rhonchi and no wheezes Cardio Rate: regular rate Rhythm: regular rhythm Heart sounds: S1 normal heart sound present and S2 normal heart sound present Bruits: no carotid bruits Peripheral pulses: Peripheral pulses 2+ throughout GI Inspection: Yes normal to inspection Skin Other: Dressing clean dry intact. Patient refused dressing change. Did visualize pictures from 04/07/2023. Wounds: no wounds Hair: normal Neuro General: oriented to person, oriented to place and oriented to time Cranial nerves: Yes CN's II-XII intact bilaterally and Yes Normal hearing present Cognition (Neuro): normal cognition Motor exam (neuro): 5/5 motor strength present throughout Extrem Other: venous exam: No significant superficial varicosities or spider telangiectasias, minimal edema General: No clubbing, No cyanosis and No edema Psych Appearance: grossly normal Mental Status: mental status grossly normal Speech and movement: Normal speech and movement present Results Reviewed Results Reviewed: Noninvasive arterial testing dated 03/24/2023 demonstrates AGUSTIN on the right of 0.97 and on the left of 1.15. Written report and images were reviewed. Assessment & Plan Assessment & Plan (1) Diabetic foot ulcer: Comment: She has been taking Ertapenem. Code(s): E11.621 - Type 2 diabetes mellitus with foot ulcer; L97.509 - Non-pressure chronic ulcer of other part of unspecified foot with unspecified severity Plan: In short patient has this nonhealing right lower extremity ulcer. It does appear to be progressing in the right direction. She will continue to follow with the [facility] for routine checkup. We will schedule her for 1 month follow-up to ensure that it is progressing in the right direction. Thank you for allowing us to assist in her care. Medications: Discontinued insulin NPH and regular human 100 unit/mL (70-30) 50-60U in the AM and 45-55U in the PM subcut 2 times a day; 90 days 100 mL 8RF Coding Level of Care Code Est Pt Level 4 (89223) Diagnoses Diabetic foot ulcer E11.621; L97.509
== END 2023-04-13 13:39 | disposition home or self-care (01) ==
PROVIDERS: PCP Internal Medicine; Visit Provider Surgery Vascular Surgery
DX: E11.621 Type 2 diabetes mellitus with foot ulcer (principal); L97.519 Non-pressure chronic ulcer of other part of right foot with unspecified severity
CPT/HCPCS: 99213

== ENCOUNTER → 2023-04-13 12:50 | Outpatient (BNVA) | payer MEDICARE, SELFPAY | PROVIDERS: PCP Internal Medicine; Visit Provider Surgery Vascular Surgery ==

== ENCOUNTER 2023-04-13 13:29 | Outpatient (REF) | payer MEDICARE, SELFPAY ==
[2023-04-13 13:43] LABS: MANUAL DIFF FLAG NO
[2023-04-13 13:52] LABS: Basophils Percent Auto 0.5 % (0-2); Eosinophils Absolute Auto 0.2 X10*3/uL (0.0-0.4); Eosinophils Percent Auto 3.1 % (0-4); Hematocrit 27.2 % (37.0-47.0); Hemoglobin 8.6 g/dl (12.0-16.0); Imm Gran Abs Auto 0.01 X10*3/uL (0.00-0.03); Imm Gran Pct Auto 0.2 % (0.0-0.4); Lymphocytes Absolute Auto 1.1 X10*3/uL (1.2-4.9); Mean Corpuscular HGB Conc 31.6 g/dl (31.0-35.0); Mean Corpuscular Hemoglobin 30.2 pg (27.0-33.0); Mean Corpuscular Volume 95.4 fL (80.0-98.0); Mean Platelet Volume 12.5 fL (9.4-12.3); Monocytes Absolute Auto 0.4 X10*3/uL (0.1-1.2); Neutrophils Absolute Auto 4.6 x10*3/uL (2.0-8.3); Neutrophils Percent Auto 72.2 % (45-73); Platelet Count 222 X10*3/uL (160-400); Red Blood Count 2.85 X10*6/uL (4.20-5.50); Red Cell Distribution Width 13.7 % (11.0-16.0); White Blood Count 6.4 X10*3/uL (4.8-10.8)
[2023-04-13 14:53] LABS: Blood Urea Nitrogen 56 mg/dL (9-16); Estimated Glomerular Filt Rate 20
== END 2023-04-13 13:30 | disposition home or self-care (01) ==
LOC: HO.HVNA 13:29
PROVIDERS: Visit Provider Internal Medicine
DX: E11.621 Type 2 diabetes mellitus with foot ulcer (principal); L97.518 Non-pressure chronic ulcer of other part of right foot with other specified severity; L03.115 Cellulitis of right lower limb
CPT/HCPCS: 36415; 82565; 84520; 85025; 99212

== ENCOUNTER 2023-04-20 12:26 | Outpatient (REF) | payer MEDICARE, SELFPAY ==
[2023-04-20 12:31] LABS: MANUAL DIFF FLAG NO
[2023-04-20 12:34] LABS: Basophils Percent Auto 0.4 % (0-2); Eosinophils Absolute Auto 0.2 X10*3/uL (0.0-0.4); Eosinophils Percent Auto 4.1 % (0-4); Hematocrit 26.9 % (37.0-47.0); Hemoglobin 8.6 g/dl (12.0-16.0); Imm Gran Abs Auto 0.01 X10*3/uL (0.00-0.03); Imm Gran Pct Auto 0.2 % (0.0-0.4); Lymphocytes Percent Auto 21.1 % (20-40); Mean Corpuscular Hemoglobin 30.1 pg (27.0-33.0); Mean Corpuscular Volume 94.1 fL (80.0-98.0); Mean Platelet Volume 12.3 fL (9.4-12.3); Monocytes Absolute Auto 0.3 X10*3/uL (0.1-1.2); Monocytes Percent Auto 6.7 % (2-11); Neutrophils Absolute Auto 3.1 x10*3/uL (2.0-8.3); Neutrophils Percent Auto 67.5 % (45-73); Platelet Count 206 X10*3/uL (160-400); Red Blood Count 2.86 X10*6/uL (4.20-5.50); White Blood Count 4.7 X10*3/uL (4.8-10.8)
[2023-04-20 13:03] LABS: Blood Urea Nitrogen 63 mg/dL (9-16); Estimated Glomerular Filt Rate 22
== END 2023-04-20 12:27 | disposition home or self-care (01) ==
LOC: HO.HVNA 12:26
PROVIDERS: Visit Provider Internal Medicine
DX: L97.518 Non-pressure chronic ulcer of other part of right foot with other specified severity (principal); M86.171 Other acute osteomyelitis, right ankle and foot; Z45.2 Encounter for adjustment and management of vascular access device
CPT/HCPCS: 36415; 82565; 84520; 85025

== ENCOUNTER 2023-04-27 14:07 | Outpatient (REF) | payer MEDICARE, SELFPAY ==
[2023-04-27 14:11] LABS: MANUAL DIFF FLAG NO
[2023-04-27 14:14] LABS: Basophils Percent Auto 0.2 % (0-2); Eosinophils Absolute Auto 0.1 X10*3/uL (0.0-0.4); Eosinophils Percent Auto 2.1 % (0-4); Hematocrit 26.1 % (37.0-47.0); Hemoglobin 8.4 g/dl (12.0-16.0); Imm Gran Abs Auto 0.02 X10*3/uL (0.00-0.03); Imm Gran Pct Auto 0.4 % (0.0-0.4); Lymphocytes Absolute Auto 0.9 X10*3/uL (1.2-4.9); Lymphocytes Percent Auto 18.9 % (20-40); Mean Corpuscular HGB Conc 32.2 g/dl (31.0-35.0); Mean Corpuscular Hemoglobin 29.9 pg (27.0-33.0); Mean Corpuscular Volume 92.9 fL (80.0-98.0); Mean Platelet Volume 12.4 fL (9.4-12.3); Monocytes Absolute Auto 0.3 X10*3/uL (0.1-1.2); Monocytes Percent Auto 6.3 % (2-11); Neutrophils Absolute Auto 3.4 x10*3/uL (2.0-8.3); Neutrophils Percent Auto 72.1 % (45-73); Platelet Count 206 X10*3/uL (160-400); Red Blood Count 2.81 X10*6/uL (4.20-5.50); White Blood Count 4.8 X10*3/uL (4.8-10.8)
[2023-04-27 16:07] LABS: Blood Urea Nitrogen 76 mg/dL (9-16); Estimated Glomerular Filt Rate 17
== END 2023-04-27 14:08 | disposition home or self-care (01) ==
LOC: HO.HVNA 14:07
PROVIDERS: Visit Provider Internal Medicine
DX: L03.115 Cellulitis of right lower limb (principal); M86.171 Other acute osteomyelitis, right ankle and foot; E11.621 Type 2 diabetes mellitus with foot ulcer
CPT/HCPCS: 36415; 82565; 84520; 85025

== ENCOUNTER 2023-04-28 11:37 | Outpatient (AMB) | payer MEDICARE, SELFPAY ==
--- NOTE | 2023-04-28 11:36 | MHC.OFFVIS ---
Intake Vital Signs 04/28/23 11:42 BP 142/70 H Pulse 98 Pulse Source Pulse Oximeter Pulse Oximetry (%) 99 Intake Visit Reasons: central tune line follow up new med Allergies codeine [CODEINE] Allergy (Intermediate, Verified 04/28/23 11:43) BACK PAIN pollen extracts [POLLEN] Allergy (Mild, Verified 04/28/23 11:43) SINUS IRRITATION HPI central tune line follow up new med HPI Details She is doing well with Ertapenem renal dose adjust at .5 g and has no problems with central line. She is seeing Wound Clinic regularly. GFR is about the same. [facility] Medical History Diabetes mellitus Hx of type A viral hepatitis Hyperlipidemia Obesity Surgical History H/O varicose vein ligation History of biopsy History of cholecystectomy History of excision of lesion History of surgical removal of skin lesion Family History Father Gastric cancer Mother Acute CVA (cerebrovascular accident) Diabetes Brother Colon cancer Social History Household Members: Children Housing: House Do you presently have visiting nurse or other home services: No Alcohol intake: never Patient Tobacco Use Status: Never used Tobacco e-Cigarette/Vaping Use: Never Used Second Hand Smoke Exposure: No service: No Current occupational status: retired Cognitive needs: No Hearing needs: No Vision needs: Yes Review of Systems Const All systems reviewed & are unremarkable except as noted in HPI and below Physical Exam Vital Signs: Last Vital Signs Pulse 98 04/28/23 11:42 BP 142/70 H 04/28/23 11:42 Pulse Ox 99 04/28/23 11:42 Const General: cooperative Orientation/consciousness: patient oriented x3 HEENT Head: Yes normal to inspection Mouth: Normal oral and palatal mucosa present Eyes General: appearance normal, both eyes and all related structures Pupils: Equal, round and reactive pupils present Resp Effort & Inspection: normal respiratory effort Cardio Rate: regular rate Rhythm: regular rhythm GI Palpation (GI): Soft to palpation and nontender General: Yes no CVA tenderness Back/Spine/Pelvis Back: no CVA tenderness Skin General skin exam: no rashes or lesions noted Neuro General: patient oriented x3 Cranial nerves: Yes CN's II-XII intact bilaterally and Yes Equal, round and reactive pupils present 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 Area appears improved Code(s): E11.621 - Type 2 diabetes mellitus with foot ulcer; L97.509 - Non-pressure chronic ulcer of other part of unspecified foot with unspecified severity Plan: Stop Ertapenem on 05/04 and pull central line. Start po Doxycycline 100 mg bid and see in three weeks. She continues to see Wound Care. Orders: Orders IR cvc remove any age Today E11.621 - Type 2 diabetes mellitus with foot ulcer, L97.509 - Non-pressure chronic ulcer of other part of unspecified foot with unspecified severity Medications: New doxycycline hyclate 100 mg PO BID 30 days 60 tabs 1RF Discontinued insulin NPH and regular human 100 unit/mL (70-30) 50-60U in the AM and 45-55U in the PM subcut 2 times a day; 90 days 100 mL 8RF Coding Level of Care Code Est Pt Level 3 (64063) Diagnoses Diabetic foot ulcer E11.621; L97.509
[2023-04-28 11:42] VITALS: BP 142/70; PULSE 98; O2SAT 99
== END 2023-04-28 13:08 | disposition home or self-care (01) ==
LOC: HO.HID 11:37
PROVIDERS: PCP Internal Medicine; Visit Provider Internal Medicine
DX: E11.621 Type 2 diabetes mellitus with foot ulcer (principal); L97.509 Non-pressure chronic ulcer of other part of unspecified foot with unspecified severity
CPT/HCPCS: 99213

== ENCOUNTER → 2023-04-28 11:37 | Outpatient (BNVA) | payer MEDICARE, SELFPAY | PROVIDERS: PCP Internal Medicine; Visit Provider Internal Medicine | DX: E11.621 Type 2 diabetes mellitus with foot ulcer (principal); L97.509 Non-pressure chronic ulcer of other part of unspecified foot with unspecified severity | CPT/HCPCS: 99212 ==

== ENCOUNTER 2023-05-04 14:04 | Outpatient (REF) | payer MEDICARE, SELFPAY ==
[2023-05-04 14:10] LABS: MANUAL DIFF FLAG NO
[2023-05-04 14:17] LABS: Basophils Percent Auto 0.4 % (0-2); Eosinophils Absolute Auto 0.1 X10*3/uL (0.0-0.4); Eosinophils Percent Auto 1.9 % (0-4); Hematocrit 26.8 % (37.0-47.0); Hemoglobin 8.7 g/dl (12.0-16.0); Imm Gran Abs Auto 0.01 X10*3/uL (0.00-0.03); Imm Gran Pct Auto 0.2 % (0.0-0.4); Lymphocytes Absolute Auto 0.9 X10*3/uL (1.2-4.9); Lymphocytes Percent Auto 16.1 % (20-40); Mean Corpuscular HGB Conc 32.5 g/dl (31.0-35.0); Mean Corpuscular Hemoglobin 30.2 pg (27.0-33.0); Mean Corpuscular Volume 93.1 fL (80.0-98.0); Mean Platelet Volume 12.4 fL (9.4-12.3); Monocytes Absolute Auto 0.3 X10*3/uL (0.1-1.2); Monocytes Percent Auto 5.5 % (2-11); Neutrophils Percent Auto 75.9 % (45-73); Platelet Count 221 X10*3/uL (160-400); Red Blood Count 2.88 X10*6/uL (4.20-5.50); Red Cell Distribution Width 13.8 % (11.0-16.0); White Blood Count 5.3 X10*3/uL (4.8-10.8)
[2023-05-04 14:48] LABS: Blood Urea Nitrogen 56 mg/dL (9-16); Estimated Glomerular Filt Rate 22
== END 2023-05-04 14:05 | disposition home or self-care (01) ==
LOC: HO.HVNA 14:04
PROVIDERS: Visit Provider Internal Medicine
DX: E11.621 Type 2 diabetes mellitus with foot ulcer (principal)
CPT/HCPCS: 36415; 82565; 84520; 85025

== ENCOUNTER 2023-05-07 10:46 | Outpatient (REF) | payer MEDICARE, SELFPAY ==
--- NOTE | ~2023-05-07 | IR_ITS ---
EXAMINATION: Removal tunneled catheter CLINICAL INFORMATION: Foot ulcer. IV antibiotics no longer needed. COMPARISON: None. TECHNIQUE/Findings: The right internal jugular 5 German proline catheter was removed. Manual pressure was held at the chest and neck to achieve hemostasis. Dry sterile dressing was applied. IR/IR cvc remove any age IMPRESSION: Right internal jugular 5 German proline catheter removal.
== END 2023-05-07 10:47 | disposition home or self-care (01) ==
LOC: HO.RADIR 10:46
PROVIDERS: PCP Internal Medicine; Visit Provider Internal Medicine
DX: Z13.89 Encounter for screening for other disorder (principal)

== ENCOUNTER 2023-05-11 12:59 | Outpatient (AMB) | payer MEDICARE, SELFPAY ==
--- NOTE | 2023-05-11 13:01 | A.OFFVIS_ITS ---
Intake Vital Signs 05/11/23 13:01 Height 5 ft 5 in Intake Visit Reasons: 4 week follow up wound check Intake Note: Right foot wound, finished IV Abx, now taking oral Abx. Visiting nurse will be discontinued after today. Goes to wound care center 1x per week Accompanied by: Son Allergies codeine [CODEINE] Allergy (Intermediate, Verified 05/11/23 13:05) BACK PAIN pollen extracts [POLLEN] Allergy (Mild, Verified 05/11/23 13:05) SINUS IRRITATION HPI 4 week follow up wound check HPI Details Very pleasant 87-year-old female presents for follow-up regarding nonhealing right foot wound. It has been a lateral foot wound. She has been followed by the [facility]. She has been receiving IV antibiotics and completed her course of therapy. Now for routine wound check. [facility] Medical History Hx of type A viral hepatitis Hyperlipidemia Obesity Diabetes mellitus Surgical History History of surgical removal of skin lesion History of biopsy History of excision of lesion H/O varicose vein ligation History of cholecystectomy Family History Father Gastric cancer Mother Acute CVA (cerebrovascular accident) Diabetes Brother Colon cancer Social History Household Members: Children Housing: House Do you presently have visiting nurse or other home services: No Alcohol intake: never Patient Tobacco Use Status: Never used Tobacco e-Cigarette/Vaping Use: Never Used Second Hand Smoke Exposure: No service: No Current occupational status: retired Cognitive needs: No Hearing needs: No Vision needs: Yes Review of Systems Const All systems reviewed & are unremarkable except as noted in HPI and below Reports no additional complaints ENT Reports Normal hearing present Card Denies chest pain, Denies chest pain at rest, Denies chest pain with activity and Denies pedal edema Resp Denies cough GI Denies abdominal pain Musc Denies abnormal gait, Denies muscle cramps and Denies radiating pain into limb Skin/Breast Denies skin ulcer and Denies wounds Neuro Reports Normal hearing present and Denies abnormal gait Psych Reports no additional complaints Physical Exam Const General: cooperative, healthy appearing and comfortable Orientation/consciousness: oriented to person, oriented to place and oriented to time HEENT Head: Yes normal to inspection Neck Neck: Yes normal visual inspection Carotids: no bruits Chest Chest palpation & inspection: normal inspection of the chest Resp Effort & Inspection: normal respiratory effort and able to speak in complete sentences Auscultation: clear to auscultation bilaterally, no crackles, no rales, no rhonchi and no wheezes Cardio Rate: regular rate Rhythm: regular rhythm Heart sounds: S1 normal heart sound present and S2 normal heart sound present Bruits: no carotid bruits Peripheral pulses: Peripheral pulses 2+ throughout GI Inspection: Yes normal to inspection Skin Other: Foot wound of about 1.5 cm overall appears to be healing well pain Wounds: wounds noted Hair: normal Neuro General: oriented to person, oriented to place and oriented to time Cranial nerves: Yes CN's II-XII intact bilaterally and Yes Normal hearing present Cognition (Neuro): normal cognition Motor exam (neuro): 5/5 motor strength present throughout Extrem Other: venous exam: No significant superficial varicosities or spider telangiectasias, minimal edema General: No clubbing, No cyanosis and No edema Psych Appearance: grossly normal Mental Status: mental status grossly normal Speech and movement: Normal speech and movement present Assessment & Plan Assessment & Plan (1) Diabetic foot ulcer: Comment: She has been taking Ertapenem. Area appears improved Code(s): E11.621 - Type 2 diabetes mellitus with foot ulcer; L97.509 - Non-pressure chronic ulcer of other part of unspecified foot with unspecified severity Plan: Overall foot wound appears to be doing significantly better. She continues to follow up with the Wound Care Center. She will see us in approximately 1 months time to make sure it is progressing in the right direction. Thank you for allowing us to assist in her care. If there are any questions or concerns please do not hesitate to contact us. Coding Level of Care Code Est Pt Level 3 (49309) Diagnoses Diabetic foot ulcer E11.621; L97.509
== END 2023-05-11 13:46 | disposition home or self-care (01) ==
PROVIDERS: PCP Internal Medicine; Visit Provider Surgery Vascular Surgery
DX: E11.621 Type 2 diabetes mellitus with foot ulcer (principal); L97.509 Non-pressure chronic ulcer of other part of unspecified foot with unspecified severity
CPT/HCPCS: 99213

== ENCOUNTER → 2023-05-11 12:59 | Outpatient (BNVA) | payer MEDICARE, SELFPAY | PROVIDERS: PCP Internal Medicine; Visit Provider Surgery Vascular Surgery | DX: E11.621 Type 2 diabetes mellitus with foot ulcer (principal); L97.519 Non-pressure chronic ulcer of other part of right foot with unspecified severity | CPT/HCPCS: 99212 ==

== ENCOUNTER 2023-05-25 13:02 | Outpatient (AMB) | payer MEDICARE, SELFPAY ==
[2023-05-25 13:05] VITALS: BP 148/70; PULSE 90; O2SAT 99; BMI 36.6
--- NOTE | 2023-05-25 13:05 | AM.OFFVISMDC ---
Intake Vital Signs 05/25/23 13:05 Height 5 ft 5 in Weight 220 lb BMI 36.6 BP 148/70 H Blood Pressure Location Lt brachial Position Sitting Pulse 90 Pulse Source Pulse Oximeter Pulse Oximetry (%) 99 Oxygen Delivery Method Room Air Intake Visit Reasons: [facility] G0439 Beef Boner: Beef Boner Present Allergies codeine [CODEINE] Allergy (Intermediate, Verified 05/25/23 13:05) BACK PAIN pollen extracts [POLLEN] Allergy (Mild, Verified 05/25/23 13:05) SINUS IRRITATION Medication List - Last Reconciled 05/26/23 by Christopher Zamudio MD allopurinol 100 mg PO DAILY blood sugar diagnostic to check blood sugar three times a day chair, wheel (Wheel chair) As directed chair, wheel (Wheel chair) As directed diabetic supplies, miscellan. DIABETIC SHOES WITH 3 INSERTS doxycycline hyclate 100 mg PO BID 30 days ergocalciferol (vitamin D2) 1,250 mcg PO Q14D ertapenem 0.5 grams IV DAILY 28 days fenofibrate 160 mg PO DAILY furosemide 20 mg PO DAILY hydralazine 25 mg PO BID 90 days insulin NPH and regular human 100 unit/mL (70-30) 52 units subcut BID@0700,1900 lancets (Microlet Lancet) USE DIRECTED TO CHECK BLOOD GLUCOSE THREE TIMES DAILY lisinopril 20 mg PO BID metoprolol succinate ER 25 mg PO DAILY 90 days off loading boot As directed omeprazole 20 mg PO DAILY walker (Ultra-Light Rollator misc) To use daily HPI V G0439 HPI Details hypertension hyperlipidemia and diabetes; compliant with meds [facility] Medical History Hx of type A viral hepatitis Hyperlipidemia Obesity Diabetes mellitus Surgical History History of surgical removal of skin lesion History of biopsy History of excision of lesion H/O varicose vein ligation History of cholecystectomy Family History Father Gastric cancer Mother Acute CVA (cerebrovascular accident) Diabetes Brother Colon cancer Social History Household Members: Children Housing: House Do you presently have visiting nurse or other home services: No Alcohol intake: never Patient Tobacco Use Status: Never used Tobacco e-Cigarette/Vaping Use: Never Used Second Hand Smoke Exposure: No service: No Current occupational status: retired Cognitive needs: No Hearing needs: No Vision needs: Yes Questionnaire Mini Mental State Exam (MMSE) Orientation What is the (year) (season) (date) (day) (month)?: year, season, date, day and month Registration Name of 3 unrelated objects clearly and slowly, then ask patient to repeat all 3 of them. (1st repeat determines score. Make sure they can repeat all three): object 1 Attention & Calculation (CHOOSE ONE) Spell WORLD backwards (DLROW): 5 letters Recall Ask patient to repeat the 3 items from question #3.: object 1 Score Score: 12 Activity of Daily Living Bathing - sponge bath, tub bath or shower: receives no assistance (gets in/out by self, if usual bathing means Dressing - getting clothes from closets & drawers, including inner/outer garments & fasteners.: gets clothes & gets completely dressed without help Toileting - going to the 'toilet room' for urine/bowel elimination & cleaning self/arranging clothes: goes to toilet room, cleans self, arranges clothes without help Transfer: moves in & out of bed and chair without help (may use support object) Continence: controls urination/bowel movements completely by self Feeding: feeds self without help Total Score: 0 Information obtained from: patient PHQ-9 Over the last 2 weeks, how often have you been bothered by any of the following problems? 1. Little interest or pleasure in doing things: not at all 2. Feeling down, depressed, or hopeless: not at all 3. Trouble falling or staying asleep, or sleeping too much: not at all 4. Feeling tired or having little energy: not at all 5. Poor appetite or overeating: not at all 6. Feeling bad about yourself - or that you are a failure or have let yourself or your family down: not at all 7. Trouble concentrating on things, such as reading the newspaper or watching television: not at all 8. Moving or speaking so slowly that other people could have noticed. Or the opposite - being so fidgety or restless that you have been moving around a lot more than usual: not at all 9. Thoughts that you would be better off or of hurting yourself in some way: not at all Total score: 0 Depression Screening Interpretation: Negative Depression Screening Done: Yes 44746 - PHQ-9 Billing: Yes Source: Developed by Drs. Wilber Ortega, Vickie Briseno, David Calzada and colleagues, with an educational aide from [employer]. Review of Systems Const Denies chills, Denies fatigue, Denies headache(s) and Denies weight loss Eyes Denies change in vision, Denies diplopia and Denies eye pain ENT Reports Normal hearing present, Denies vertigo, Denies dizziness, Denies headache(s) and Denies nasal discharge Card Denies chest pain, Denies rapid heart rate and Denies dyspnea on exertion Resp Denies chest congestion, Denies cough, Denies pain with cough and Denies dyspnea on exertion GI Denies abdominal pain, Denies hematochezia and Denies change in bowel habits Musc Denies myalgias, Denies arthralgias and Denies joint swelling Skin/Breast Denies lesions and Denies unusual bruising Neuro Reports Normal hearing present, Denies vertigo, Denies dizziness, Denies headache(s) and Denies focal weakness Endo Denies fatigue Physical Exam Vital Signs: Last Vital Signs Pulse 90 05/25/23 13:05 BP 148/70 H 05/25/23 13:05 Pulse Ox 99 05/25/23 13:05 Oxygen Delivery Method Room Air 05/25/23 13:05 BMI result Body Mass Index 36.6 Neuro Cranial nerves: Yes Normal hearing present Assessment & Plan Assessment & Plan (1) Encounter for subsequent annual wellness visit (AWV) in Medicare patient: Code(s): Z00.00 - Encounter for general adult medical examination without abnormal findings Plan: whisper and rhomberg tests nl (2) Hypertension: Code(s): I10 - Essential (primary) hypertension Plan: stable (3) Hyperlipidemia: Code(s): E78.5 - Hyperlipidemia, unspecified Plan: stable (4) Diabetes mellitus with coincident hypertension: Code(s): E11.9 - Type 2 diabetes mellitus without complications; I10 - Essential (primary) hypertension Plan: same rx; do labs Orders: Orders Complete Blood Count Auto Diff 05/25/23 D64.9 - Anemia, unspecified Comprehensive [place]. Panel Fast 05/25/23 N28.9 - Disorder of kidney and ureter, unspecified Lipid Panel 05/25/23 E78.5 - Hyperlipidemia, unspecified Hemoglobin A1c 05/25/23 R73.9 - Hyperglycemia, unspecified Medications: New chair, wheel (Wheel chair) As directed 1 ea 0RF Quality Reporting (2019) Depression/Bipolar (159/160/161/177) PHQ-9: Total score: 0 Coding Level of Care Code Medicare Subsequent (G0439) Diagnoses Encounter for subsequent annual wellness visit (AWV) in Medicare patient Z00.00 Hypertension I10 Hyperlipidemia E78.5 Diabetes mellitus with coincident hypertension E11.9; I10 CPT Codes Advance Care Planning - Advance Care Planning discussion: On file, no changes ([id number]) Advance Care Planning - Time spent: 1-15 minutes, on File ([id number]) Advance Care Planning Advance Care Planning discussion: On file, no changes Forms completed: Health Care Proxy Time spent: 1-15 minutes, on File
== END 2023-05-25 13:33 | disposition home or self-care (01) ==
PROVIDERS: PCP Internal Medicine; Visit Provider Internal Medicine
DX: I10 Essential (primary) hypertension (principal); E78.5 Hyperlipidemia, unspecified; E11.9 Type 2 diabetes mellitus without complications
CPT/HCPCS: 1123F; 99213

== ENCOUNTER 2023-05-27 10:00 | Outpatient (REF) | payer MEDICARE, SELFPAY | END 2023-05-27 10:01 | disposition home or self-care (01) | LOC: HO.LAB 10:00 | PROVIDERS: PCP Internal Medicine; Visit Provider Internal Medicine | DX: N28.9 Disorder of kidney and ureter, unspecified (principal); R73.9 Hyperglycemia, unspecified; D64.9 Anemia, unspecified; E78.5 Hyperlipidemia, unspecified | CPT/HCPCS: 36415; 80053; 80061; 83036; 85025 ==

== ENCOUNTER 2023-06-07 13:09 | Outpatient (AMB) | payer MEDICARE, SELFPAY ==
--- NOTE | 2023-06-07 13:13 | A.OFFVIS_ITS ---
Intake Vital Signs 3 06/07/23 13:27 Height 5 ft 5 in Weight 215 lb BMI 35.8 BP 132/62 Pulse 101 H Pulse Source Pulse Oximeter Pulse Oximetry (%) 99 Intake Visit Reasons: f/u, medicatication/ 3 wks Allergies codeine [CODEINE] Allergy (Intermediate, Verified 06/07/23 13:27) BACK PAIN pollen extracts [POLLEN] Allergy (Mild, Verified 06/07/23 13:27) SINUS IRRITATION HPI f/u, medicatication/ 3 wks 2 HPI0 Details She is here for further evaluation lateral right foot OM. Recently she had area extruding from side of foot and this biopsied and cultured and believed to be bone chips. She has 06/03 proteus mirabilis sensitive to Levafloxacin as well as PCN and cephalalosporins. Doxycycline not mentioned as tested but nausea caused her to be unable to tolerate this and she stopped after two weeks. Pathology is pending from area. GFR is 27. She sees Dr Rollins in [place]. [facility] Medical History Hx of type A viral hepatitis Hyperlipidemia Obesity Diabetes mellitus Surgical History History of surgical removal of skin lesion History of biopsy History of excision of lesion H/O varicose vein ligation History of cholecystectomy Family History Father Gastric cancer Mother Acute CVA (cerebrovascular accident) Diabetes Brother Colon cancer Social History Household Members: Children Housing: House Do you presently have visiting nurse or other home services: No Alcohol intake: never Patient Tobacco Use Status: Never used Tobacco e-Cigarette/Vaping Use: Never Used Second Hand Smoke Exposure: No service: No Current occupational status: retired Cognitive needs: No Hearing needs: No Vision needs: Yes Review of Systems Const All systems reviewed & are unremarkable except as noted in HPI and below Musc Details: leaking serous fluid from lateral right foot, still looks open and red Physical Exam Vital Signs: Last Vital Signs Pulse 101 H 06/07/23 13:27 BP 132/62 10/16/23 13:27 Pulse Ox 99 06/07/23 13:27 BMI result Body Mass Index 35.8 Const General: cooperative Orientation/consciousness: patient oriented x3 HEENT Head: Yes normal to inspection Mouth: Normal oral and palatal mucosa present Eyes General: appearance normal, both eyes and all related structures Pupils: Equal, round and reactive pupils present Resp Effort & Inspection: normal respiratory effort Cardio Rate: regular rate Rhythm: regular rhythm GI Palpation (GI): Soft to palpation and nontender General: Yes no CVA tenderness Back/Spine/Pelvis Back: no CVA tenderness Skin General skin exam: no rashes or lesions noted Neuro General: patient oriented x3 Cranial nerves: Yes CN's II-XII intact bilaterally and Yes Equal, round and reactive pupils present Extrem Other: open wound ,still red,leaking serous fluid Psych Appearance: grossly normal Assessment & Plan Assessment & Plan (1) CKD (chronic kidney disease) stage 4, GFR 15-29 ml/min: Code(s): N18.4 - Chronic kidney disease, stage 4 (severe) (2) Diabetic foot ulcer: Comment: She has been taking Ertapenem. Area appears not improved. Code(s): E11.621 - Type 2 diabetes mellitus with foot ulcer; L97.509 - Non-pressure chronic ulcer of other part of unspecified foot with unspecified severity Plan: Po Levaquin 250 mg every other day for three weeks. See in three weeks. Medications: New 2 levofloxacin 250 mg PO Q48H 11 tabs 0RF 21 days Coding Level of Care Code Est Pt Level 3 (00262) Diagnoses CKD (chronic kidney disease) stage 4, GFR 15-29 ml/min N18.4 Diabetic foot ulcer E11.621; L97.509
[2023-06-07 13:27] VITALS: BP 132/62; PULSE 101; O2SAT 99; BMI 35.8
== END 2023-06-07 13:43 | disposition home or self-care (01) ==
PROVIDERS: PCP Internal Medicine; Visit Provider Internal Medicine
DX: N18.4 Chronic kidney disease, stage 4 (severe) (principal); E11.621 Type 2 diabetes mellitus with foot ulcer; L97.509 Non-pressure chronic ulcer of other part of unspecified foot with unspecified severity
CPT/HCPCS: 99213

== ENCOUNTER → 2023-06-07 13:09 | Outpatient (BNVA) | payer MEDICARE, SELFPAY | PROVIDERS: PCP Internal Medicine; Visit Provider Internal Medicine | DX: E11.621 Type 2 diabetes mellitus with foot ulcer (principal); L97.519 Non-pressure chronic ulcer of other part of right foot with unspecified severity; E11.22 Type 2 diabetes mellitus with diabetic chronic kidney disease; N18.4 Chronic kidney disease, stage 4 (severe) | CPT/HCPCS: 99212 ==

== ENCOUNTER 2023-06-08 12:57 | Outpatient (AMB) | payer MEDICARE, SELFPAY ==
--- NOTE | 2023-06-08 13:04 | A.OFFVIS_ITS ---
Intake Vital Signs 06/08/23 13:08 Height 5 ft 5 in Weight 215 lb BMI 35.8 Intake Visit Reasons: 4 week follow up wound check Intake Note: pt here for a 4 week wound check.She states that she saw infection and they started her on levofloxacin.Pt states she does not feel like her wound getting better that the infectious doctor says it looks like it has bacteria. they did send a bone fragment tot he lab for testing waiting on results Allergies codeine [CODEINE] Allergy (Intermediate, Verified 06/08/23 13:08) BACK PAIN pollen extracts [POLLEN] Allergy (Mild, Verified 06/08/23 13:08) SINUS IRRITATION HPI 4 week follow up wound check HPI Details Very pleasant 87-year-old female presents for follow-up regarding nonhealing right foot wound. It is noted to be on the lateral aspect of the foot wound. She has [facility] and has completed her course of IV antibiotic therapy. She is concerned that this has been not healing for significant period of time. She now presents for routine follow-up. [facility] Medical History Hx of type A viral hepatitis Hyperlipidemia Obesity Diabetes mellitus Surgical History History of surgical removal of skin lesion History of biopsy History of excision of lesion H/O varicose vein ligation History of cholecystectomy Family History Father Gastric cancer Mother Acute CVA (cerebrovascular accident) Diabetes Brother Colon cancer Social History Household Members: Children Housing: House Do you presently have visiting nurse or other home services: No Alcohol intake: never Patient Tobacco Use Status: Never used Tobacco e-Cigarette/Vaping Use: Never Used Second Hand Smoke Exposure: No service: No Current occupational status: retired Cognitive needs: No Hearing needs: No Vision needs: Yes Review of Systems Const All systems reviewed & are unremarkable except as noted in HPI and below Reports no additional complaints ENT Reports Normal hearing present Card Denies chest pain, Denies chest pain at rest, Denies chest pain with activity and Denies pedal edema Resp Denies cough GI Denies abdominal pain Musc Denies abnormal gait, Denies muscle cramps and Denies radiating pain into limb Skin/Breast Denies skin ulcer and Denies wounds Neuro Reports Normal hearing present and Denies abnormal gait Psych Reports no additional complaints Physical Exam Vital Signs: BMI result Body Mass Index 35.8 Const General: cooperative, healthy appearing and comfortable Orientation/consciousness: oriented to person, oriented to place and oriented to time HEENT Head: Yes normal to inspection Neck Neck: Yes normal visual inspection Carotids: no bruits Chest Chest palpation & inspection: normal inspection of the chest Resp Effort & Inspection: normal respiratory effort and able to speak in complete sentences Auscultation: clear to auscultation bilaterally, no crackles, no rales, no rhonchi and no wheezes Cardio Rate: regular rate Rhythm: regular rhythm Heart sounds: S1 normal heart sound present and S2 normal heart sound present Bruits: no carotid bruits Peripheral pulses: Peripheral pulses 2+ throughout GI Inspection: Yes normal to inspection Skin Other: Foot wound about 1.5 cm in diameter. The concern is it penetrates nearly 2 cm. Wounds: no wounds Hair: normal Neuro General: oriented to person, oriented to place and oriented to time Cranial nerves: Yes CN's II-XII intact bilaterally and Yes Normal hearing present Cognition (Neuro): normal cognition Motor exam (neuro): 5/5 motor strength present throughout Extrem Other: venous exam: No significant superficial varicosities or spider telangiectasias, minimal edema General: No clubbing, No cyanosis and No edema Psych Appearance: grossly normal Mental Status: mental status grossly normal Speech and movement: Normal speech and movement present Assessment & Plan Assessment & Plan (1) Diabetic foot ulcer: Comment: She has been taking Ertapenem. Area appears not improved. Code(s): E11.621 - Type 2 diabetes mellitus with foot ulcer; L97.509 - Non-pressure chronic ulcer of other part of unspecified foot with unspecified severity Qualifiers: Diabetic foot ulcer location: unspecified part of foot Diabetes [facility] type: type 2 Laterality: unspecified laterality Non-pressure ulcer stage: unspecified non-pressure ulcer stage Qualified Code(s): E11.621 - Type 2 diabetes mellitus with foot ulcer; L97.509 - Non-pressure chronic ulcer of other part of unspecified foot with unspecified severity Plan: In short patient continues to have an nonhealing foot ulcer. Current time would continue with conservative measures. It does not appear grossly infected. The concern is that this has been nonhealing for significant period of time. Will plan for local wound care and follow up with the [facility]. She can follow up with us in approximately 1 months time to ensure that we are progressing in the right direction. Thank you for allowing us to assist in her care. If there are questions or concerns please do not hesitate to contact us. Coding Level of Care Code Est Pt Level 3 (39995) Diagnoses Diabetic foot ulcer associated with type 2 diabetes mellitus, unspecified laterality, unspecified part of foot, unspecified ulcer stage E11.621; L97.509 Diabetic foot ulcer location: unspecified part of foot Diabetes mellitus type: type 2 Laterality: unspecified laterality Non-pressure ulcer stage: unspecified non-pressure ulcer stage
[2023-06-08 13:08] VITALS: BMI 35.8
== END 2023-06-08 13:34 | disposition home or self-care (01) ==
PROVIDERS: PCP Internal Medicine; Visit Provider Surgery Vascular Surgery
DX: E11.621 Type 2 diabetes mellitus with foot ulcer (principal); L97.509 Non-pressure chronic ulcer of other part of unspecified foot with unspecified severity
CPT/HCPCS: 99213

== ENCOUNTER → 2023-06-08 12:57 | Outpatient (BNVA) | payer MEDICARE, SELFPAY | PROVIDERS: PCP Internal Medicine; Visit Provider Surgery Vascular Surgery | DX: E11.621 Type 2 diabetes mellitus with foot ulcer (principal); L97.501 Non-pressure chronic ulcer of other part of unspecified foot limited to breakdown of skin | CPT/HCPCS: 99212 ==

== ENCOUNTER 2023-06-15 13:52 | Outpatient (REF) | payer MEDICARE, SELFPAY ==
[2023-06-15 14:27] LABS: MANUAL DIFF FLAG NO
[2023-06-15 14:29] LABS: Basophils Percent Auto 0.5 % (0-2); Eosinophils Absolute Auto 0.1 X10*3/uL (0.0-0.4); Eosinophils Percent Auto 1.1 % (0-4); Hemoglobin 8.7 g/dl (12.0-16.0); Imm Gran Abs Auto 0.03 X10*3/uL (0.00-0.03); Imm Gran Pct Auto 0.5 % (0.0-0.4); Lymphocytes Absolute Auto 1.2 X10*3/uL (1.2-4.9); Lymphocytes Percent Auto 17.8 % (20-40); Mean Corpuscular HGB Conc 32.2 g/dl (31.0-35.0); Mean Corpuscular Hemoglobin 29.4 pg (27.0-33.0); Mean Corpuscular Volume 91.2 fL (80.0-98.0); Monocytes Absolute Auto 0.4 X10*3/uL (0.1-1.2); Monocytes Percent Auto 5.5 % (2-11); Neutrophils Absolute Auto 4.9 x10*3/uL (2.0-8.3); Neutrophils Percent Auto 74.6 % (45-73); Platelet Count 266 X10*3/uL (160-400); Red Blood Count 2.96 X10*6/uL (4.20-5.50); Red Cell Distribution Width 14.4 % (11.0-16.0); White Blood Count 6.5 X10*3/uL (4.8-10.8)
[2023-06-15 15:14] LABS: Albumin Level 3.6 g/dL (3.5-5.0); Anion Gap 18 (12-20); Blood Urea Nitrogen 51 mg/dL (9-16); Calcium 10.5 mg/dL (8.4-10.2); Carbon Dioxide 21 mmol/L (22-29); Chloride 104 mmol/L (96-108); Estimated Glomerular Filt Rate 19; Phosphorus 2.6 mg/dL (2.7-4.5); Potassium 5.2 mmol/L (3.3-5.1); Sodium 138 mmol/L (135-145)
[2023-06-15 15:28] LABS: Appearance Urine Clear; Color Urine Yellow; Glucose Urine UA Negative (Negative); Leukocyte Esterase Urine Trace (Negative); Nitrite Urine Negative (Negative); PH 5.5 (5.0-9.0); Specific Gravity - Urine <= 1.005 (1.005-1.025); UMIC TRIGGER UA YES; Urine Blood Negative (Negative); Urine Ketones Negative (Negative); Urine Protein Negative (Neg-Trace)
[2023-06-15 15:30] LABS: Vitamin D 25-OH Total 33.1 ng/mL (>30)
[2023-06-15 15:33] LABS: Bacteria Urine None Seen (None Seen); Hyaline Casts Urine 0-2 /LPF (0-2); RBC Urine 0-2 /HPF (0-2); Squamous Epithelial Cell Urine 0-2 /HPF (0-2); WBC Urine 0-5 /HPF (0-5)
[2023-06-15 23:47] LABS: Creatinine Urine 40.34 mg/dL; Microalbumin Urine < 5.0 mg/L; Total Protein Urine Random < 7 mg/dL (<12)
[2023-06-16 16:34] LABS: Calcium (PTHI) 9.9 mg/dL (8.6-10.4); PTHI 43 pg/mL (16-77)
== END 2023-06-15 13:53 | disposition home or self-care (01) ==
LOC: HO.LAB 13:52
PROVIDERS: PCP Internal Medicine; Visit Provider Internal Medicine Nephrology
DX: E11.22 Type 2 diabetes mellitus with diabetic chronic kidney disease (principal); N18.4 Chronic kidney disease, stage 4 (severe); E11.21 Type 2 diabetes mellitus with diabetic nephropathy; N25.0 Renal osteodystrophy
CPT/HCPCS: 36415; 80051; 81001; 82040; 82043; 82306; 82310; 82565; 82570; 83735; 83970; 84100; 84156; 84520; 85025

== ENCOUNTER 2023-06-28 14:58 | Outpatient (AMB) | payer MEDICARE, SELFPAY ==
--- NOTE | 2023-06-28 14:59 | MHC.OFFVIS ---
Intake Vital Signs 06/28/23 15:14 BP 160/86 H Blood Pressure Location Lt brachial Position Sitting Pulse 95 Pulse Source Pulse Oximeter Temp 97.3 F Temp Source Oral Pulse Oximetry (%) 95 Intake Visit Reasons: 3 wks ,f/u Allergies codeine [CODEINE] Allergy (Intermediate, Verified 06/28/23 15:15) BACK PAIN pollen extracts [POLLEN] Allergy (Mild, Verified 06/28/23 15:15) SINUS IRRITATION HPI 3 wks ,f/u HPI Details She is finishing Levaquin for proteus mirabilis in foot wound. She has had three weeks and almost done. She has no other concerns. Area appears healing. [facility] Medical History Hx of type A viral hepatitis Hyperlipidemia Obesity Diabetes mellitus Surgical History History of surgical removal of skin lesion History of biopsy History of excision of lesion H/O varicose vein ligation History of cholecystectomy Family History Father Gastric cancer Mother Acute CVA (cerebrovascular accident) Diabetes Brother Colon cancer Social History Household Members: Children Housing: House Do you presently have visiting nurse or other home services: No Alcohol intake: never Patient Tobacco Use Status: Never used Tobacco e-Cigarette/Vaping Use: Never Used Second Hand Smoke Exposure: No service: No Current occupational status: retired Cognitive needs: No Hearing needs: No Vision needs: Yes Review of Systems Const All systems reviewed & are unremarkable except as noted in HPI and below Physical Exam Vital Signs: Last Vital Signs Temp 97.3 F 06/28/23 15:14 Pulse 95 06/28/23 15:14 BP 160/86 H 06/28/23 15:14 Pulse Ox 95 06/28/23 15:14 Const General: cooperative Resp Effort & Inspection: normal respiratory effort Cardio Rate: regular rate Rhythm: regular rhythm GI Inspection: Yes normal to inspection Extrem Other: improved Assessment & Plan Assessment & Plan (1) Diabetic foot ulcer: Comment: She has been taking po Levaquin and is done. Foot looks improved. Code(s): E11.621 - Type 2 diabetes mellitus with foot ulcer; L97.509 - Non-pressure chronic ulcer of other part of unspecified foot with unspecified severity Qualifiers: Diabetes mellitus type: type 2 Diabetic foot ulcer location: unspecified part of foot Laterality: unspecified laterality Non-pressure ulcer stage: unspecified non-pressure ulcer stage Qualified Code(s): E11.621 - Type 2 diabetes mellitus with foot ulcer; L97.509 - Non-pressure chronic ulcer of other part of unspecified foot with unspecified severity Plan: Follow with me prn need and with [facility]ound [facility]. Coding Level of Care Code Est Pt Level 3 (29007) Diagnoses Diabetic foot ulcer associated with type 2 diabetes mellitus, unspecified laterality, unspecified part of foot, unspecified ulcer stage E11.621; L97.509 Diabetes mellitus type: type 2 Diabetic foot ulcer location: unspecified part of foot Laterality: unspecified laterality Non-pressure ulcer stage: unspecified non-pressure ulcer stage
[2023-06-28 15:14] VITALS: BP 160/86; PULSE 95; TEMP 36.3; O2SAT 95
== END 2023-06-28 15:36 | disposition home or self-care (01) ==
PROVIDERS: PCP Internal Medicine; Visit Provider Internal Medicine
DX: E11.621 Type 2 diabetes mellitus with foot ulcer (principal); L97.509 Non-pressure chronic ulcer of other part of unspecified foot with unspecified severity
CPT/HCPCS: 99213

== ENCOUNTER → 2023-06-28 14:58 | Outpatient (BNVA) | payer MEDICARE, SELFPAY | PROVIDERS: PCP Internal Medicine; Visit Provider Internal Medicine | DX: E11.621 Type 2 diabetes mellitus with foot ulcer (principal); L97.509 Non-pressure chronic ulcer of other part of unspecified foot with unspecified severity | CPT/HCPCS: 99212 ==

== ENCOUNTER 2023-08-22 00:26 | Emergency (ER) | payer MEDICARE, SELFPAY ==
[2023-08-22 00:44] VITALS: BP 158/72; BP 188/92; PULSE 42; PULSE 83; RESP 15; O2SAT 94; O2SAT 96; BMI 36.3
[2023-08-22 01:04] LABS: Glucose, Whole Blood 58 mg/dL (60-115)
--- NOTE | 2023-08-22 01:05 | ECG_ITS ---
Test Reason : HYPOGLYCEMIA Blood Pressure : / mmHG Vent. Rate : 077 BPM Atrial Rate : 077 BPM P-R Int : 186 ms QRS Dur : 090 ms QT Int : 430 ms P-R-T Axes : 000 -13 -09 degrees QTc Int : 486 ms Normal sinus rhythm Inferior infarct (cited on or before 16-MAR-2005) Cannot rule out Anterior infarct (cited on or before 29-NOV-2006) Abnormal ECG When compared with ECG of 23-MAR-2023 17:44, Nonspecific T wave abnormality now evident in Anterolateral leads Referred By: Generic ED Physician Electronically Signed By:ROBIN JENKINS
[2023-08-22 01:17] LABS: MANUAL DIFF FLAG NO
[2023-08-22 01:23] LABS: Basophils Percent Auto 0.2 % (0-2); Eosinophils Absolute Auto 0.1 X10*3/uL (0.0-0.4); Eosinophils Percent Auto 1.2 % (0-4); Hematocrit 24.3 % (37.0-47.0); Hemoglobin 7.8 g/dl (12.0-16.0); Imm Gran Abs Auto 0.08 X10*3/uL (0.00-0.03); Lymphocytes Percent Auto 12.2 % (20-40); Mean Corpuscular HGB Conc 32.1 g/dl (31.0-35.0); Mean Corpuscular Hemoglobin 29.7 pg (27.0-33.0); Mean Corpuscular Volume 92.4 fL (80.0-98.0); Mean Platelet Volume 10.9 fL (9.4-12.3); Monocytes Absolute Auto 0.3 X10*3/uL (0.1-1.2); Monocytes Percent Auto 4.1 % (2-11); Neutrophils Absolute Auto 6.5 x10*3/uL (2.0-8.3); Neutrophils Percent Auto 81.3 % (45-73); Platelet Count 363 X10*3/uL (160-400); Red Blood Count 2.63 X10*6/uL (4.20-5.50); Red Cell Distribution Width 14.6 % (11.0-16.0)
--- NOTE | 2023-08-22 01:30 | ED.GENADULT ---
HPI - General Adult General Chief complaint: General Medical Stated complaint: NOT FEELING WELL Time Seen by Provider: 08/22/23 01:28 Source: patient and family (Son, Matt) Mode of arrival: EMS Limitations: no limitations History of Present Illness HPI narrative: 87-year-old female with history of hyperlipidemia, diabetes, obesity, cellulitis, osteomyelitis of the right foot who was sent to the emergency department from her nursing facility for evaluation of diaphoresis and a ?hot flash ?. Patient was recently treated at [facility] for bacteremia, cellulitis and osteomyelitis of the right foot. 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 Patient does have a history of diabetes and she states that in the past when she has felt sweaty it was due to hold low glucose. Her point of care glucose was 211 therefore she was sent to the emergency department for evaluation. When the patient got here we repeated the point of care glucose and that was 52. She states that she has had low sugars at night in the past when she does not eat enough food for dinner. The patient denied fever or chills but she states she has had rhinorrhea and a nonproductive cough since leaving [facility]. She denied chest pain, shortness of breath, nausea vomiting or diarrhea. She denied myalgias arthralgias. Related Data Home Medications Medication Instructions Recorded Confirmed ergocalciferol (vitamin D2) 1,250 1,250 mcg PO Q14D 01/29/21 05/26/23 mcg (50,000 unit) capsule insulin human U-100 NPH-regulr 52 unit subcut BID@0700,1900 03/23/23 05/26/23 70-30 mix 100 unit/mL subcutaneous susp Previous Rx's Medication Instructions Recorded walker (Ultra-Light Rollator misc) #1 ea 07/15/21 hydralazine 25 mg tablet 25 mg PO BID 90 days #180 tabs 09/06/22 metoprolol succinate 25 mg 25 mg PO DAILY 90 days #90 tabs 09/14/22 tablet,extended release 24 hr allopurinol 100 mg tablet 100 mg PO DAILY #90 tabs 09/29/22 blood sugar diagnostic #300 ea 09/29/22 lisinopril 20 mg tablet 20 mg PO BID #180 tabs 09/29/22 furosemide 20 mg tablet 20 mg PO DAILY #90 tabs 12/23/22 omeprazole 20 mg capsule,delayed 20 mg PO DAILY #90 caps 12/23/22 release off loading boot #1 ea 03/28/23 chair, wheel (Wheel chair) #1 ea 04/15/23 lancets (Microlet Lancet) #100 ea 04/19/23 doxycycline hyclate 100 mg tablet 100 mg PO BID 30 days #60 tabs 04/28/23 chair, wheel (Wheel chair) #1 ea 05/25/23 levofloxacin 250 mg tablet 250 mg PO Q48H 21 days #11 tabs 06/07/23 fenofibrate 160 mg tablet 160 mg PO DAILY #90 tabs 06/14/23 diabetic supplies, miscellan. #1 ea 06/29/23 Allergies Allergy/AdvReac Type Severity Reaction Status Date / Time codeine [CODEINE] Allergy Intermediate BACK PAIN Verified 06/28/23 15:15 pollen extracts [POLLEN] Allergy Mild SINUS Verified 06/28/23 15:15 IRRITATION Review of Systems Review of Systems: Yes all other systems are reviewed and are negative [facility] Past Medical History [facility] Narrative: Social history: Patient is currently in a nursing home facility but prior to that she was living at home with her son Matt who is here in the emergency department with her. She denies tobacco, alcohol and drug use. Medical History Hx of type A viral hepatitis Hyperlipidemia Obesity Diabetes mellitus Surgical History History of surgical removal of skin lesion History of biopsy History of excision of lesion H/O varicose vein ligation History of cholecystectomy Family History Family History Father Gastric cancer Mother Acute CVA (cerebrovascular accident) Diabetes Brother Colon cancer Social History Social History Household Members: Children Housing: House Do you presently have visiting nurse or other home services: No Alcohol intake: never Patient Tobacco Use Status: Never used Tobacco e-Cigarette/Vaping Use: Never Used Second Hand Smoke Exposure: No Advance Directives: No Advance Directives Information Provided: No service: No Current occupational status: retired Cognitive needs: No Hearing needs: No Vision needs: Yes Physical Exam ED Vital Signs: Vital Signs - 24 hr 08/22/23 00:44 08/22/23 01:38 Temperature 96.1 F L Pulse Rate 83 Respiratory Rate 15 Blood Pressure 158/72 H Pulse Oximetry 96 Oxygen Delivery Method Room Air BMI result Body Mass Index 36.3 Vital signs revealed an elevated blood pressure of 158/72 Exam: General: Awake, alert in no distress Head: Normocephalic, atraumatic EENT: PERRL, Lids normal, sclera normal, conjunctiva normal, nose normal , ears normal, throat without erythema or exudates Neck: Supple, no adenopathy, no trachea midline or C-spine tenderness Lung: breath sounds symmetric, no wheezing, rales or rhonchi Chest: symmetric movement, nontender Heart: regular rate and rhythm, normal S1, S2 no murmurs or rubs Abdomen: soft, non-tender, nondistended, normal bowel sounds Back: no vertebral tenderness, no CVAT Extremities: Patient's right lower extremity has an area of faded erythema with a blue line drawn around it, there is no increased warmth over the area of erythema Neuro: Awake, alert, oriented, normal speech, cranial nerves intact, moves all extremities symmetrically Psych: Pleasant, cooperative Medical Decision Making Medical Decision Making MDM Narrative: 87-year-old female with history of hyperlipidemia, diabetes, obesity, cellulitis, osteomyelitis of the right foot who was sent to the emergency department from her nursing facility for evaluation of diaphoresis and a ?hot flash ?. Patient was recently treated at [facility] for bacteremia, cellulitis and osteomyelitis of the right foot, discharged on 08/19/2023 and is currently at a nursing home facility. She is receiving IV medications for her MRSA cellulitis/osteomyelitis. Patient's initial point of care glucose was 211 but here in the emergency department was 52. Patient has complained of rhinorrhea, cough times 2 days. Vital signs revealed elevated blood pressure otherwise were unremarkable. Physical examination was normal consistent with healing cellulitis of the right lower extremity Following evaluation was ordered: CBC, CMP, urinalysis, COVID-19, influenza, RSV, point of care glucose Patient was treated with orange juice and food. 01:51 My interpretation patient's laboratory evaluation is as follows: Chronic normocytic anemia with an H&H of 7.8 and 24.3. Potassium low 3.2. BUN elevated 31-chronic. AST elevated 37 troponin elevated 52.6-no previous values. COVID-19, influenza and RSV pending Patient's 12 EKG revealed no acute ST segment elevation or depression. I will repeat the patient's troponin at 04:15 hours 05:07 Patient's repeat troponin was 51.2 which was unchanged from the 1st 1 suggesting that her symptoms were not caused by myocardial infarction. Patient will be discharged to her care facility with instructions to give the patient a snack at night prevent my time hypoglycemia. Differential Diagnosis Differential Diagnoses: The differential diagnosis associated with the presentation includes Differential diagnosis includes was not limited to hypoglycemia, infectious process, myocardial infarction, myocardial ischemia, electrolyte abnormalities, anemia, viral infection, COVID-19, influenza, RSV Admission/Observation Consideration of admission/observation: Escalation of care including admission/observation considered Lab Data MDM Lab Attestation statement: I reviewed the patient's lab results. 08/22/23 01:12 08/22/23 01:12 Labs: Lab Results 08/22/23 08/22/23 08/22/23 Range/Units 01:00 01:12 01:40 WBC 8.0 (4.8-10.8) X10*3/uL RBC 2.63 L (4.20-5.50) X10*6/uL Hgb 7.8 L (12.0-16.0) g/dl Hct 24.3 L (37.0-47.0) % MCV 92.4 (80.0-98.0) fL MCH 29.7 (27.0-33.0) pg MCHC 32.1 (31.0-35.0) g/dl RDW 14.6 (11.0-16.0) % Plt Count 363 (160-400) X10*3/uL MPV 10.9 (9.4-12.3) fL Immature Gran % (Auto) 1.0 H (0.0-0.4) % Neut % (Auto) 81.3 H (45-73) % Lymph % (Auto) 12.2 L (20-40) % [place] % (Auto) 4.1 (2-11) % Eos % (Auto) 1.2 (0-4) % Baso % (Auto) 0.2 (0-2) % Lymph # (Auto) 1.0 L (1.2-4.9) X10*3/uL [place] # (Auto) 0.3 (0.1-1.2) X10*3/uL Eos # (Auto) 0.1 (0.0-0.4) X10*3/uL Baso # (Auto) 0.0 (0.0-0.2) X10*3/uL Abs Immat Gran (auto) 0.08 H (0.00-0.03) X10*3/uL Absolute Neuts (auto) 6.5 (2.0-8.3) x10*3/uL Absolute Nucleated RBC 0.000 (0.0-0.012) X10*3/uL Nucleated RBC % (auto) 0.0 (0.0-0.2) /100WBC Sodium 144 (135-145) mmol/L Potassium 3.2 L (3.3-5.1) mmol/L Chloride 104 (96-108) mmol/L Carbon Dioxide 29 (22-29) mmol/L Anion Gap 14 (12-20) BUN 31 H (9-16) mg/dL Creatinine 1.40 (0.5-1.4) mg/dL Estim Creat Clear Calc 33.0 Estimated GFR 36 POC Glucose 58 L* 106 (60-115) mg/dL Random Glucose 65 (60-115) mg/dL Calcium 9.9 (8.4-10.2) mg/dL Total Bilirubin 0.3 (0.0-1.0) mg/dL AST 37 H (5-31) U/L ALT 7 (0-31) U/L Alkaline Phosphatase 48 (39-117) U/L Troponin I High Sens 52.6 H* (<3.5-17.0) ng/L Total Protein 7.0 (6.5-8.0) g/dL Albumin 2.9 L (3.5-5.0) g/dL Influenza Type A (PCR) (Negative) Influenza Type B (PCR) (Negative) RSV RNA Qual (PCR) (Negative) SARS-CoV-2 RNA (RT-PCR) (Negative) 08/22/23 08/22/23 08/22/23 Range/Units 02:21 04:11 04:30 WBC (4.8-10.8) X10*3/uL RBC (4.20-5.50) X10*6/uL Hgb (12.0-16.0) g/dl Hct (37.0-47.0) % MCV (80.0-98.0) fL MCH (27.0-33.0) pg MCHC (31.0-35.0) g/dl RDW (11.0-16.0) % Plt Count (160-400) X10*3/uL MPV (9.4-12.3) fL Immature Gran % (Auto) (0.0-0.4) % Neut % (Auto) (45-73) % Lymph % (Auto) (20-40) % [place] % (Auto) (2-11) % Eos % (Auto) (0-4) % Baso % (Auto) (0-2) % Lymph # (Auto) (1.2-4.9) X10*3/uL [place] # (Auto) (0.1-1.2) X10*3/uL Eos # (Auto) (0.0-0.4) X10*3/uL Baso # (Auto) (0.0-0.2) X10*3/uL Abs Immat Gran (auto) (0.00-0.03) X10*3/uL Absolute Neuts (auto) (2.0-8.3) x10*3/uL Absolute Nucleated RBC (0.0-0.012) X10*3/uL Nucleated RBC % (auto) (0.0-0.2) /100WBC Sodium (135-145) mmol/L Potassium (3.3-5.1) mmol/L Chloride (96-108) mmol/L Carbon Dioxide (22-29) mmol/L Anion Gap (12-20) BUN (9-16) mg/dL Creatinine (0.5-1.4) mg/dL Estim Creat Clear Calc Estimated GFR POC Glucose 200 H (60-115) mg/dL Random Glucose (60-115) mg/dL Calcium (8.4-10.2) mg/dL Total Bilirubin (0.0-1.0) mg/dL AST (5-31) U/L ALT (0-31) U/L Alkaline Phosphatase (39-117) U/L Troponin I High Sens 51.2 H* (<3.5-17.0) ng/L Total Protein (6.5-8.0) g/dL Albumin (3.5-5.0) g/dL Influenza Type A (PCR) NEGATIVE (Negative) Influenza Type B (PCR) NEGATIVE (Negative) RSV RNA Qual (PCR) NEGATIVE (Negative) SARS-CoV-2 RNA (RT-PCR) NEGATIVE (Negative) Independent Interpretation I performed an independent interpretation of an: EKG Interpretation: My interpretation the patient's 12 EKG done at 01:26 hours is as follows: Normal sinus rhythm rate of 77, normal SD interval, QRS duration, prolonged QTC interval of 486 millisecond. Q-waves in lead 3 and AVF, nonspecific T-wave abnormalities, no ST segment elevation, no ST segment depression, no PACs, no PVCs Discharge Plan Discharge Clinical Impression: Hypoglycemia, Diaphoresis Patient Disposition: er Inpatient Rehab Fac Transfer Details: [facility] Additional Instructions: Your point of care glucose here in the emergency department was 52 and I believe this was the cause of your sweatiness/diaphoresis. Your EKG was normal. Your initial high sensitive troponin I was elevated at 52.6 in the 3 hour troponin was the same at 51.2 suggesting that you did not have myocardial injury as the cause of your diaphoresis. The rest of your blood work was unremarkable. Your provider that is taking care for you should consider ordering a nighttime snack to prevent nighttime hypoglycemia in you. Follow-up with your doctor in 2 days. Please return to the emergency department if your symptoms get worse or if you develop any symptoms that are concerning to you. Prescriptions: No Action hydralazine 25 mg tablet 25 mg PO BID 90 Days Qty: 180 8RF metoprolol succinate 25 mg tablet extended release 24 hr 25 mg PO DAILY 90 Days Qty: 90 8RF lisinopril 20 mg tablet 20 mg PO BID Qty: 180 7RF allopurinol 100 mg tablet 100 mg PO DAILY Qty: 90 7RF (DME) blood sugar diagnostic Strip See Rx Instructions .ROUTE .MEDSUPPLY Qty: 300 8RF Rx Instructions: to check blood sugar three times a day furosemide 20 mg tablet 20 mg PO DAILY Qty: 90 8RF omeprazole 20 mg capsule,delayed release(/EC) 20 mg PO DAILY Qty: 90 8RF (DME) Wheel chair Kit See Rx Instructions .Route Qty: 1 0RF Rx Instructions: As directed ([facility]) lancets [Microlet Lancet] [facility] See Rx Instructions .ROUTE .COMPLEX Qty: 100 3RF Dose Instruction: USE DIRECTED TO CHECK BLOOD GLUCOSE THREE TIMES DAILY Rx Instructions: USE DIRECTED TO CHECK BLOOD GLUCOSE THREE TIMES DAILY fenofibrate 160 mg tablet 160 mg PO DAILY Qty: 90 8RF (DME) diabetic supplies, miscellan. [facility] See Rx Instructions .ROUTE .MEDSUPPLY Qty: 1 2RF Rx Instructions: DIABETIC SHOES WITH 3 INSERTS insulin NPH and regular human 100 unit/mL (70-30) suspension 52 unit subcut BID@0700,1900 ([facility]) off loading boot Kit See Rx Instructions .Route Qty: 1 0RF Rx Instructions: As directed ([facility]) Ultra-Light Rollator [facility] See Rx Instructions .Route Qty: 1 0RF Rx Instructions: To use daily ergocalciferol (vitamin D2) 1,250 mcg (50,000 unit) capsule 1,250 mcg PO Q14D ([facility]) Wheel chair Kit See Rx Instructions .Route Qty: 1 0RF Rx Instructions: As directed doxycycline hyclate 100 mg tablet 100 mg PO BID 30 Days Qty: 60 1RF levofloxacin 250 mg tablet 250 mg PO Q48H 21 Days Qty: 11 0RF
[2023-08-22 01:36] LABS: Alanine Aminotransferase 7 U/L (0-31); Albumin Level 2.9 g/dL (3.5-5.0); Alkaline Phosphatase 48 U/L (39-117); Anion Gap 14 (12-20); Aspartate Amino Transferase 37 U/L (5-31); Bilirubin Total 0.3 mg/dL (0.0-1.0); Blood Urea Nitrogen 31 mg/dL (9-16); Calcium 9.9 mg/dL (8.4-10.2); Carbon Dioxide 29 mmol/L (22-29); Chloride 104 mmol/L (96-108); Estimated Glomerular Filt Rate 36; Glucose Random 65 mg/dL (60-115); Potassium 3.2 mmol/L (3.3-5.1); Sodium 144 mmol/L (135-145)
[2023-08-22 01:38] VITALS: TEMP 35.6
[2023-08-22 01:47] LABS: Troponin-I High Sensitivity 52.6 ng/L (<3.5-17.0)
[2023-08-22 01:49] LABS: Glucose, Whole Blood 106 mg/dL (60-115)
--- NOTE | 2023-08-22 02:00 | PC.NURSE ---
this rn assumed care of pt from ems @ 0044. pt natalie doyle at bedside poc taken by this rn poc [address] newell and dr pink made aware per dr pink give pt orange juice with sugar and crackers. pt tolerated po fluids and food well md to bedside. bloodwork obtained from picc line and sent to lab ekg obtained
[2023-08-22 02:01] VITALS: BP 160/75; PULSE 110; RESP 22; O2SAT 98
[2023-08-22 03:47] VITALS: BP 156/66; PULSE 76; RESP 14; O2SAT 97
[2023-08-22 04:11] LABS: Influenza A PCR NEGATIVE (Negative); Influenza B PCR NEGATIVE (Negative); Resp Syncy Virus RNA Qual PCR NEGATIVE (Negative); SARS COV2 PCR INHOUSE NEGATIVE (Negative)
[2023-08-22 04:15] LABS: Glucose, Whole Blood 200 mg/dL (60-115)
[2023-08-22 04:45] VITALS: BP 164/72; PULSE 77; RESP 19; O2SAT 97
[2023-08-22 05:00] LABS: Troponin-I High Sensitivity 51.2 ng/L (<3.5-17.0)
[2023-08-22 05:31] VITALS: BP 154/55; PULSE 77; RESP 21; O2SAT 96
--- NOTE | 2023-08-22 05:45 | PC.NURSE ---
this rn provided report to ems prior to transport back to [facility] this rn contacted marjorie tran at [facility] for handoff report. pt calm and cooperative prior to discharge.
== END 2023-08-22 06:00 ==
PROVIDERS: Emergency Provider Emergency Medicine Emergency Medical Services; PCP Family Medicine
DX: E11.649 Type 2 diabetes mellitus with hypoglycemia without coma (principal); R61 Generalized hyperhidrosis; M86.9 Osteomyelitis, unspecified; B95.62 Methicillin resistant Staphylococcus aureus infection as the cause of diseases classified elsewhere; Z20.822 Contact with and (suspected) exposure to COVID-19; Z20.828 Contact with and (suspected) exposure to other viral communicable diseases
CPT/HCPCS: 0241U; 36415; 80053; 82947; 84484; 85025; 93005; 99284; 99285

== ENCOUNTER → 2023-08-22 01:05 | Outpatient (BNV) | payer MEDICARE, SELFPAY | PROVIDERS: Emergency Provider Emergency Medicine Emergency Medical Services; PCP Family Medicine; Visit Provider Internal Medicine | DX: R94.31 Abnormal electrocardiogram [ECG] [EKG] (principal) | CPT/HCPCS: 93010 ==

== ENCOUNTER 2023-09-30 15:10 | Emergency (ER) | payer MEDICARE, MEDICAID, SELFPAY ==
--- NOTE | ~2023-09-30 | XR_ITS ---
EXAMINATION: XR ABDOMEN KUB CLINICAL INDICATION: Broken insulin needle right abdomen COMPARISON: None available. TECHNIQUE: AP view of the abdomen. FINDINGS: On the included KUB images there is no radiopaque metallic foreign body/needle visualized. There is scattered stool in the colon without distention. There is mild spondylosis throughout lumbar spine. No aggressive lytic or sclerotic process seen. SI joints are symmetrical and normal. XR/XR KUB IMPRESSION: 1. No radiopaque metallic foreign body/needle visualized on the included KUB. 2. Mild constipation.
[2023-09-30 16:02] VITALS: BP 145/56; PULSE 84; RESP 16; TEMP 36.6; O2SAT 99; BMI 35.3
--- NOTE | 2023-09-30 16:02 | ED_ITS ---
HPI - General Adult General Chief complaint: General Medical Stated complaint: broken insulin needle in abd Time Seen by Provider: 09/30/23 17:41 Source: patient and family Mode of arrival: ambulatory Limitations: no limitations History of Present Illness HPI narrative: 87 year old female presents to the emergency department, with her son, for concerns for a broken needle in her right abdomen. She reports she gave herself insulin in the right lower abdomen and when she pulled the needle out there was no needle attached to the syringe. Pt's son believes that the needle was bent and when she straightened the needle that it weakened the needle causing it to break. Denies any pain. Related Data Home Medications Medication Instructions Recorded Confirmed ergocalciferol (vitamin D2) 1,250 1,250 mcg PO Q14D 01/29/21 05/26/23 mcg (50,000 unit) capsule insulin human U-100 NPH-regulr 52 unit subcut BID@0700,1900 03/23/23 05/26/23 70-30 mix 100 unit/mL subcutaneous susp Previous Rx's Medication Instructions Recorded nilda (Ultra-Light Rollator misc) #1 ea 07/15/21 allopurinol 100 mg tablet 100 mg PO DAILY #90 tabs 09/29/22 blood sugar diagnostic #300 ea 09/29/22 lisinopril 20 mg tablet 20 mg PO BID #180 tabs 09/29/22 furosemide 20 mg tablet 20 mg PO DAILY #90 tabs 12/23/22 omeprazole 20 mg capsule,delayed 20 mg PO DAILY #90 caps 12/23/22 release off loading boot #1 ea 03/28/23 chair, wheel (Wheel chair) #1 ea 04/15/23 lancets (Microlet Lancet) #100 ea 04/19/23 doxycycline hyclate 100 mg tablet 100 mg PO BID 30 days #60 tabs 04/28/23 chair, wheel (Wheel chair) #1 ea 05/25/23 levofloxacin 250 mg tablet 250 mg PO Q48H 21 days #11 tabs 06/07/23 fenofibrate 160 mg tablet 160 mg PO DAILY #90 tabs 06/14/23 diabetic supplies, miscellan. #1 ea 06/29/23 hydralazine 25 mg tablet 25 mg PO BID 90 days #180 tabs 09/16/23 metoprolol succinate 25 mg 25 mg PO DAILY 90 days #90 tabs 09/16/23 tablet,extended release 24 hr Allergies Allergy/AdvReac Type Severity Reaction Status Date / Time codeine [CODEINE] Allergy Intermediate BACK PAIN Verified 06/28/23 15:15 pollen extracts [POLLEN] Allergy Mild SINUS Verified 06/28/23 15:15 IRRITATION Review of Systems Review of Systems: Yes all other systems are reviewed and are negative PMFSH Past Medical History Attestation statement: The following information was validated with the patient. Medical History Hx of type A viral hepatitis Hyperlipidemia Obesity Diabetes mellitus Surgical History History of surgical removal of skin lesion History of biopsy History of excision of lesion H/O varicose vein ligation History of cholecystectomy Family History Family History Father Gastric cancer Mother Acute CVA (cerebrovascular accident) Diabetes Brother Colon cancer Social History Social History Household Members: Children Housing: House Do you presently have visiting nurse or other home services: No Alcohol intake: never Patient Tobacco Use Status: Never used Tobacco e-Cigarette/Vaping Use: Never Used Second Hand Smoke Exposure: No Advance Directives: No Advance Directives Information Provided: No service: No Current occupational status: retired Cognitive needs: No Hearing needs: No Vision needs: Yes Physical Exam ED Vital Signs: Vital Signs - 24 hr 09/30/23 16:02 Temperature 97.8 F Pulse Rate 84 Respiratory Rate 16 Blood Pressure 145/56 H Pulse Oximetry 99 Oxygen Delivery Method Room Air BMI result Body Mass Index 35.3 Nursing notes and vital signs reviewed. GENERAL APPEARANCE: A&0 x 4, generally well appearing, no acute distress HENMT: Normal to inspection, atraumatic, face symmetrical. Normal external ears, nose, and oropharynx clear. EYE: PERRLA, EOM intact, structures appear normal NECK: Supple without stiffness or restricted ROM. HEART: Normal rate and regular rhythm, normal S1/S2, no M/R/G ABDOMEN: No evidence of foreign body noted. No erythema or swelling noted. LUNGS: LS CTA, moving air well. Able to speak in complete sentences. No crackles, wheezes, or rhonchi auscultated BACK: No CVAT, no obvious deformity EXTREMITIES: Moving all extremities without difficulty. Normal capillary refill. NEUROLOGICAL: Alert and oriented, moving all 4 extremities with equal strength. CN not formally tested but appearing grossly intact. Observed to ambulate with normal gait. Cognition normal SKIN: Warm and dry without any lesions, rash, or visible sores Medical Decision Making Medical Decision Making MDM Narrative: Old records reviewed for previous imaging, lab studies, ECGs, and notes. Patient was assessed the emergency department with no acute distress or toxicity noted. On exam there is no evidence of a retained foreign body. I independently interpreted pt's KUB as negative for radiopaque foreign body. Patient is safe for discharge at this time with plan for [id number] Tylenol and/or NSAID such as ibuprofen or naproxen for fever/discomfort with dosing as per packaging. HPI, PE, diagnostics, and plan discussed with patient and family with no unanswered questions at this time. Strict return precautions given to return to the emergency department with new, worsening, or concerning emergent symptoms. Recommended to follow-up with there primary care provider in 24-48 hours for further treatment and management. Differential Diagnosis Differential Diagnoses: The differential diagnosis associated with the presentation includes retained foreign body, abscess, infection Discharge Plan Discharge Clinical Impression: Encounter for medical assessment Patient Disposition: Home, Self-Care Additional Instructions: Your seen in the emergency department for concerns of a retained needle in right abdomen. Your xray showed no evidence of a radiopaque needle in the abdomen. Please follow up with your primary care provider for further evaluation. You are safe for discharge at this time with plan for management of fever or discomfort with [id number] Tylenol and/or NSAID such as ibuprofen or naproxen with dosing as per packaging. Please return to the emergency department with new, worsening, or concerning emergent symptoms. Recommended to follow-up with your primary care provider in 24-48 hours for further treatment and management. Thank you for choosing [facility]. Prescriptions: No Action lisinopril 20 mg tablet 20 mg PO BID Qty: 180 7RF allopurinol 100 mg tablet 100 mg PO DAILY Qty: 90 7RF (DME) blood sugar diagnostic Strip See Rx Instructions .ROUTE .MEDSUPPLY Qty: 300 8RF Rx Instructions: to check blood sugar three times a day furosemide 20 mg tablet 20 mg PO DAILY Qty: 90 8RF omeprazole 20 mg capsule,delayed release(DR/EC) 20 mg PO DAILY Qty: 90 8RF (DME) Wheel chair Kit See Rx Instructions .Route Qty: 1 0RF Rx Instructions: As directed (DME) [place]let Lancet[place] [facility] [place]TE .COMPLEX Qty: 100 3RF Dose Instruction: USE DIRECTED TO CHECK BLOOD GLUCOSE THREE TIMES DAILY Rx Instructions: USE DIRECTED TO CHECK BLOOD GLUCOSE THREE TIMES DAILY fenofibrate 160 mg tablet 160 mg PO DAILY Qty: 90 8RF (DME) diabetic supplies, miscellan. [facility] [place] .ROUTE .MEDSUPPLY Qty: 1 2RF Rx Instructions: DIABETIC SHOES WITH 3 INSERTS hydralazine 25 mg tablet 25 mg PO BID 90 Days Qty: 180 8RF metoprolol succinate 25 mg tablet extended release 24 hr 25 mg PO DAILY 90 Days Qty: 90 8RF insulin NPH and regular human 100 unit/mL (70-30) suspension 52 unit subcut BID@0700,1900 (DME) off loading boot Kit See Rx Instructions .Route Qty: 1 0RF Rx Instructions: As directed (DME) Ultra-Light [place]ator [facility] [place] .Route Qty: 1 0RF Rx Instructions: To use daily ergocalciferol (vitamin D2) 1,250 mcg (50,000 unit) capsule 1,250 mcg PO Q14D (DME) Wheel chair Kit See Rx Instructions .Route Qty: 1 0RF Rx Instructions: As directed doxycycline hyclate 100 mg tablet 100 mg PO BID 30 Days Qty: 60 1RF levofloxacin 250 mg tablet 250 mg PO Q48H 21 Days Qty: 11 0RF Referrals: Christopher Zamudio MD [Primary Care Provider] - Print Language: Rwandan
== END 2023-09-30 19:09 | disposition home or self-care (01) ==
LOC: HO.ED 18:53
PROVIDERS: Emergency Provider Emergency Medicine; PCP Internal Medicine
DX: R10.9 Unspecified abdominal pain (principal); Z79.899 Other long term (current) drug therapy
CPT/HCPCS: 74018; 99281; 99283

== ENCOUNTER 2023-10-04 13:43 | Outpatient (AMB) | payer MEDICARE, SELFPAY ==
[2023-10-04 13:45] VITALS: BP 140/76; PULSE 110; O2SAT 98
--- NOTE | 2023-10-04 13:45 | MHC.PC.OV ---
Vital Signs 10/04/23 13:45 Height 5 ft 5 in BMI Reason not done Patient refused/unable BP 140/76 H Blood Pressure Location Lt brachial Position Sitting Pulse 110 H Pulse Source Pulse Oximeter Pulse Oximetry (%) 98 Oxygen Delivery Method Room Air Intake Visit Reasons: ANIL Stanley HDF/Cellulitis Acquisition Advisor Required: No Solutions Executive Security: Not Required per policy Accompanied by: Self / Same As Patient Allergies codeine [CODEINE] Allergy (Intermediate, Verified 10/04/23 13:46) BACK PAIN pollen extracts [POLLEN] Allergy (Mild, Verified 10/04/23 13:46) SINUS IRRITATION Medication List - Last Reconciled 10/06/23 by Christopher Zamudio MD allopurinol 100 mg PO DAILY blood sugar diagnostic to check blood sugar three times a day chair, wheel (Wheel chair) As directed chair, wheel (Wheel chair) As directed diabetic supplies, miscellan. DIABETIC SHOES WITH 3 INSERTS doxycycline hyclate 100 mg PO BID 30 days ergocalciferol (vitamin D2) 1,250 mcg PO Q14D fenofibrate 160 mg PO DAILY furosemide 20 mg PO DAILY hydralazine 25 mg PO BID 90 days insulin NPH and regular human 100 unit/mL (70-30) 52 units subcut BID@0700,1900 lancets (Microlet Lancet) USE DIRECTED TO CHECK BLOOD GLUCOSE THREE TIMES DAILY levofloxacin 250 mg PO Q48H 21 days metoprolol succinate ER 25 mg PO DAILY 90 days off loading boot As directed omeprazole 20 mg PO DAILY walker (Ultra-Light Rollator misc) To use daily Tobacco use date assessed: 10/04/23 Fall risk assessment: No Falls in past year Last assessed Fall Risk: 10/04/23 Dental Screening Dental Screen Date: 10/04/23 Did you have a dental visit in the last 12 months?: Yes Did you have a dental problem in the last 6 months where you did not have access to dental care?: No Was dental information given to patient?: Patient has dentist HPI ANIL Stanley HDCarrie/Cellulitis HPI Details discharged with cellulitis and underlying osteomyelitis lft foot; treated with 6 weeks parenteral rx in [place] [facility] PFSH Medical History Hx of type A viral hepatitis Hyperlipidemia Obesity Diabetes mellitus Surgical History History of surgical removal of skin lesion History of biopsy History of excision of lesion H/O varicose vein ligation History of cholecystectomy Family History Father Gastric cancer Mother Acute CVA (cerebrovascular accident) Diabetes Brother Colon cancer Social History Household Members: Children Housing: House Do you presently have visiting nurse or other home services: No Alcohol intake: never Patient Tobacco Use Status: Never used Tobacco e-Cigarette/Vaping Use: Never Used Second Hand Smoke Exposure: No service: No Current occupational status: retired Cognitive needs: No Hearing needs: No Vision needs: Yes Questionnaire PHQ-9 Over the last 2 weeks, how often have you been bothered by any of the following problems? 1. Little interest or pleasure in doing things: not at all 2. Feeling down, depressed, or hopeless: not at all 3. Trouble falling or staying asleep, or sleeping too much: not at all 4. Feeling tired or having little energy: not at all 5. Poor appetite or overeating: not at all 6. Feeling bad about yourself - or that you are a failure or have let yourself or your family down: not at all 7. Trouble concentrating on things, such as reading the newspaper or watching television: not at all 8. Moving or speaking so slowly that other people could have noticed. Or the opposite - being so fidgety or restless that you have been moving around a lot more than usual: not at all 9. Thoughts that you would be better off or of hurting yourself in some way: not at all Total score: 0 Depression Screening Interpretation: Negative Depression Screening Done: Yes [id number] - PHQ-9 Billing: Yes Source: Developed by Drs. Wilber Ortega, Vickie Briseno, David Calzada and colleagues, with an educational aide from [employer]. Thrive Questionnaire Date Thrive assessed: 10/04/23 I am a: Patient What is your living situation today?: I have a steady place to live Within the past 12 months, did the food you bought not last and you didn't have the money to get more?: Never true Within the past 12 months, did you worry whether your food would run out before you got money to buy more?: Never true Do you have trouble paying for medicines?: No Do you have trouble getting transportation to medical appointments?: No Do you have trouble paying your heating and electricity bill?: No Do you have trouble taking care of your child, family member or friend?: No Do you have trouble with day-to-day activities such as bathing, preparing meals, shopping, managing finances, etc.?: No Are you currently unemployed and looking for a job?: No Are you interested in more education?: No Please select the resources that you would like help with: None THRIVE Score: 0 AUDIT C Alcohol Use Questionnaire (AUDIT-C) 1. How often do you have a drink containing alcohol?: Never Total Score: 0 Score Reviewed/Action Taken: Yes IWONA-7 AMB Questionnaire IWONA-7 Date IWONA - 7 assessed: 10/04/23 Feeling nervous, anxious, or on edge: 0 = Not at all Not being able to stop or control worryin = Not at all Worrying too much about different things: 0 = Not at all Trouble relaxin = Not at all Being so restless that it is hard to sit still: 0 = Not at all Becoming easily annoyed or irritable: 0 = Not at all Feeling afraid as if something awful might happen: 0 = Not at all Total IWONA-7 score (0-4 normal; 5-9 mild; 10-14 moderate; 15-21 severe): 0 Source: Developed by Drs. Wilber Ortega, Vickie Briseno, David Calzada and colleagues, with an educational aide from [employer]. Review of Systems Const Denies chills, Denies headache(s) and Denies weight loss ENT Denies headache(s) Card Denies chest pain, Denies syncope, Denies irregular heart rhythm and Denies dyspnea Resp Denies chest congestion, Denies cough and Denies dyspnea GI Denies abdominal pain, Denies change in stool character, Denies nausea and Denies vomiting Musc Denies deformity and Denies joint swelling Neuro Denies syncope and Denies headache(s) Physical exam (Primary Care) Vital Signs: Last Vital Signs Pulse 110 H 10/04/23 13:45 BP 140/76 H 10/04/23 13:45 Pulse Ox 98 10/04/23 13:45 Oxygen Delivery Method Room Air 10/04/23 13:45 Tobacco/Smoking Status: Tobacco use Status Tobacco use date assessed 10/04/23 10/04/23 13:47 Patient Tobacco Use Status Never used Tobacco 10/04/23 13:47 e-Cigarette/Vaping Use Never Used 10/04/23 13:47 PHQ-9: PHQ-9 Score PHQ-9: Total score 0 10/04/23 14:05 Depression Screening Interpretation: Negative Thrive Assessment: Date of Thrive Assessment Date Thrive assessed 10/04/23 10/04/23 13:47 Const General: cooperative, comfortable, no acute distress and alert Neck Neck: Yes no lymphadenopathy Thyroid: Thyroid normal Resp Effort & Inspection: normal respiratory effort Auscultation: clear to auscultation bilaterally Percussion: percussion normal Cardio Jugular venous distension: no JVD Palpation: normal PMI Rate: regular rate Rhythm: regular rhythm Heart sounds: S1 normal heart sound present and S2 normal heart sound present GI Inspection: Yes normal to inspection Palpation (GI): No hepatosplenomegaly present Skin General skin exam: no rashes or lesions noted Extrem General: Yes no clubbing, cyanosis or edema Assessment and Plan Assessment & Plan (1) Osteomyelitis: Code(s): M86.9 - Osteomyelitis, unspecified Plan: labs; Orders: Orders Lipid Panel 10/04/23 E78.5 - Hyperlipidemia, unspecified Comprehensive Sugar Run. Panel Fast 10/04/23 N28.9 - Disorder of kidney and ureter, unspecified Hemoglobin A1c 10/04/23 R73.9 - Hyperglycemia, unspecified ECG 12 lead EKG 10/04/23 R00.2 - Palpitations AMB Hemoglobin A1c 10/04/23 E11.9 - Type 2 diabetes mellitus without complications, I10 - Essential (primary) hypertension Complete Blood Count Auto Diff 10/04/23 D64.9 - Anemia, unspecified Thyroid Stimulating Hormone 10/04/23 E03.9 - Hypothyroidism, unspecified Coding Level of Care Code Est Pt Level 3 (66970) Diagnoses Osteomyelitis M86.9
== END 2023-10-04 14:23 | disposition home or self-care (01) ==
PROVIDERS: PCP Family Medicine; Visit Provider Internal Medicine
DX: M86.9 Osteomyelitis, unspecified (principal); E11.9 Type 2 diabetes mellitus without complications
CPT/HCPCS: 83036; 99213

== ENCOUNTER 2023-10-06 10:35 | Outpatient (REF) | payer MEDICARE, SELFPAY ==
--- NOTE | 2023-10-06 10:42 | ECG_ITS ---
Test Reason : R00.2 Blood Pressure : / mmHG Vent. 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
[2023-10-06 11:03] LABS: MANUAL DIFF FLAG NO
[2023-10-06 11:58] LABS: Basophils Percent Auto 0.3 % (0-2); Eosinophils Absolute Auto 0.1 X10*3/uL (0.0-0.4); Eosinophils Percent Auto 1.9 % (0-4); Hematocrit 27.1 % (37.0-47.0); Hemoglobin 8.4 g/dl (12.0-16.0); Imm Gran Abs Auto 0.03 X10*3/uL (0.00-0.03); Imm Gran Pct Auto 0.4 % (0.0-0.4); Lymphocytes Absolute Auto 0.9 X10*3/uL (1.2-4.9); Lymphocytes Percent Auto 12.5 % (20-40); Mean Corpuscular Hemoglobin 28.4 pg (27.0-33.0); Mean Corpuscular Volume 91.6 fL (80.0-98.0); Mean Platelet Volume 11.9 fL (9.4-12.3); Monocytes Absolute Auto 0.4 X10*3/uL (0.1-1.2); Monocytes Percent Auto 5.7 % (2-11); Neutrophils Absolute Auto 5.5 x10*3/uL (2.0-8.3); Neutrophils Percent Auto 79.2 % (45-73); Platelet Count 302 X10*3/uL (160-400); Red Blood Count 2.96 X10*6/uL (4.20-5.50)
[2023-10-06 12:14] LABS: Estimated Average Glucose 140 mg/dL; Hemoglobin A1c % 6.5 % (<6.0)
[2023-10-06 12:49] LABS: Alanine Aminotransferase 9 U/L (0-31); Albumin Level 3.3 g/dL (3.5-5.0); Alkaline Phosphatase 92 U/L (39-117); Anion Gap 13 (12-20); Aspartate Amino Transferase 20 U/L (5-31); Bilirubin Total 0.5 mg/dL (0.0-1.0); Blood Urea Nitrogen 29 mg/dL (9-16); Calcium 9.6 mg/dL (8.4-10.2); Carbon Dioxide 29 mmol/L (22-29); Chloride 108 mmol/L (96-108); Cholesterol 102 mg/dL (<200); Estimated Glomerular Filt Rate 36; Glucose Fasting 107 mg/dL (60-99); HDL Cholesterol 33 mg/dL (>40); LDL Cholesterol Calculated 54 mg/dL (<100); Sodium 146 mmol/L (135-145); Thyroid Stimulating Hormone 1.75 uIU/mL (0.32-4.0); Total Protein 6.7 g/dL (6.5-8.0); Triglycerides 79 mg/dL (<150)
== END 2023-10-06 10:36 | disposition home or self-care (01) ==
LOC: HO.LAB 10:35
PROVIDERS: Visit Provider Internal Medicine
DX: R00.2 Palpitations (principal); E03.9 Hypothyroidism, unspecified; R73.9 Hyperglycemia, unspecified; N28.9 Disorder of kidney and ureter, unspecified; D64.9 Anemia, unspecified; E78.5 Hyperlipidemia, unspecified
CPT/HCPCS: 36415; 80053; 80061; 83036; 84443; 85025; 93005

== ENCOUNTER → 2023-10-06 10:42 | Outpatient (BNV) | payer MEDICARE, SELFPAY | PROVIDERS: Visit Provider Internal Medicine Cardiovascular Disease | DX: R94.31 Abnormal electrocardiogram [ECG] [EKG] (principal) | CPT/HCPCS: 93010 ==

== ENCOUNTER 2023-10-11 13:13 | Outpatient (AMB) | payer MEDICARE, MEDICAID, SELFPAY ==
[2023-10-11 13:18] VITALS: BP 144/64; PULSE 106; O2SAT 98; BMI 37.4
--- NOTE | 2023-10-11 13:18 | A.OFFPC_ITS ---
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 per policy Accompanied by: Self / Same As Patient Allergies codeine [CODEINE] Allergy (Intermediate, Verified 10/04/23 13:46) BACK PAIN pollen extracts [POLLEN] Allergy (Mild, Verified 10/04/23 13:46) SINUS IRRITATION Tobacco use date assessed: 10/04/23 Fall risk assessment: 2 + Falls in past year Last assessed Fall Risk: 10/11/23 HPI 1 week f/u HPI Details anemia, unclear etiology; iron studies pending; tired [facility] Medical History (Updated 10/12/23 @ 09:31 by Christopher Zamudio MD) Anemia Hx of type A viral hepatitis Hyperlipidemia Obesity Diabetes mellitus Surgical History History of surgical removal of skin lesion History of biopsy History of excision of lesion H/O varicose vein ligation History of cholecystectomy Family History Father Gastric cancer Mother Acute CVA (cerebrovascular accident) Diabetes Brother Colon cancer Social History Household Members: Children Housing: House Do you presently have visiting nurse or other home services: No Alcohol intake: never Patient Tobacco Use Status: Never used Tobacco e-Cigarette/Vaping Use: Never Used Second Hand Smoke Exposure: No service: No Current occupational status: retired Cognitive needs: Yes Hearing needs: No Vision needs: Yes Questionnaire Thrive Questionnaire Date Thrive assessed: 10/04/23 IWONA-7 AMB Questionnaire IWONA-7 Date IWONA - 7 assessed: 10/04/23 Source: Developed by Drs. Wilber Ortega, Vickie Briseno, David Calzada and colleagues, with an educational aide from [employer] Review of Systems Const Denies chills, Denies headache(s) and Denies weight loss ENT Denies headache(s) Card Denies chest pain, Denies syncope, Denies irregular heart rhythm and Denies dyspnea Resp Denies chest congestion, Denies cough and Denies dyspnea GI Denies abdominal pain, Denies change in stool character, Denies nausea and Denies vomiting Musc Denies deformity and Denies joint swelling Neuro Denies syncope and Denies headache(s) Physical exam (Primary Care) Vital Signs: Last Vital Signs Pulse 106 H 10/11/23 13:18 BP 144/64 H 10/11/23 13:18 Pulse Ox 98 10/11/23 13:18 Oxygen Delivery Method Room Air 10/11/23 13:18 BMI result Body Mass Index 37.4 Tobacco/Smoking Status: Tobacco use Status Tobacco use date assessed 10/04/23 10/11/23 13:19 Patient Tobacco Use Status Never used Tobacco 10/11/23 13:19 e-Cigarette/Vaping Use Never Used 10/11/23 13:19 Thrive Assessment: Date of Thrive Assessment Date Thrive assessed 10/04/23 10/11/23 13:19 Const General: cooperative, comfortable, no acute distress and alert Neck Neck: Yes no lymphadenopathy Thyroid: Thyroid normal Resp Effort & Inspection: normal respiratory effort Auscultation: clear to auscultation bilaterally Percussion: percussion normal Cardio Jugular venous distension: no JVD Palpation: normal PMI Rate: regular rate Rhythm: regular rhythm Heart sounds: S1 normal heart sound present and S2 normal heart sound present GI Inspection: Yes normal to inspection Palpation (GI): No hepatosplenomegaly present Skin General skin exam: no rashes or lesions noted Extrem General: Yes no clubbing, cyanosis or edema Assessment and Plan Assessment & Plan (1) Anemia: Code(s): D64.9 - Anemia, unspecified Plan: possible related to renal insuf; ref heme Orders: Orders IRON PROFILE 10/11/23 E61.1 - Iron deficiency Ferritin 10/11/23 D64.9 - Anemia, unspecified Vitamin B12 10/11/23 D64.9 - Anemia, unspecified Referrals Hematology & Oncology Referral D64.9 - Anemia, unspecified Coding Level of Care Code Est Pt Level 3 (79855) Diagnoses Anemia D64.9
== END 2023-10-11 13:47 | disposition home or self-care (01) ==
PROVIDERS: PCP Internal Medicine; Visit Provider Internal Medicine
DX: D64.9 Anemia, unspecified (principal)
CPT/HCPCS: 99213

== ENCOUNTER 2023-10-11 13:59 | Outpatient (REF) | payer MEDICARE, SELFPAY ==
[2023-10-11 15:30] LABS: Iron 23 mcg/dL (30-160); Percent Iron Saturation 10 % (15-50); Total Iron Binding Capacity 220 mcg/dL (228-428); Unsaturated Iron Binding 197 ug/dL
[2023-10-11 15:47] LABS: Ferritin 157 ng/mL (10-250)
[2023-10-11 15:53] LABS: Vitamin B12 475 pg/mL (200-900)
== END 2023-10-11 14:00 | disposition home or self-care (01) ==
LOC: HO.LAB 13:59
PROVIDERS: PCP Internal Medicine; Visit Provider Internal Medicine
DX: D64.9 Anemia, unspecified (principal); E61.1 Iron deficiency
CPT/HCPCS: 36415; 82607; 82728; 83540

== ENCOUNTER → 2023-10-14 09:20 | Outpatient (BNV) | payer MEDICARE, SELFPAY | PROVIDERS: PCP Internal Medicine; Referring Provider Internal Medicine; Visit Provider Internal Medicine Medical Oncology | DX: D64.9 Anemia, unspecified (principal) | CPT/HCPCS: 99204; 99213 ==

== ENCOUNTER 2023-11-05 12:56 | Outpatient (AMB) | payer MEDICARE, SELFPAY ==
[2023-11-05 12:58] VITALS: BP 146/84; PULSE 86; O2SAT 98; BMI 37.0
--- NOTE | 2023-11-05 12:58 | A.OFFPC_ITS ---
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: No Registered Nurses: Not Required per policy Accompanied by: Self / Same As Patient Allergies codeine [CODEINE] Allergy (Intermediate, Verified 11/05/23 12:58) BACK PAIN pollen extracts [POLLEN] Allergy (Mild, Verified 11/05/23 12:58) SINUS IRRITATION Medication List - Last Reconciled 11/08/23 by Christopher Zamudio MD allopurinol 100 mg PO DAILY blood sugar diagnostic (Accu-Chek Radha Plus test strips) USE DIRECTED TO TEST BLOOD SUAGR THREE TIMES DAILY chair, wheel (Wheel chair) As directed chair, wheel (Wheel chair) As directed ciprofloxacin HCl (Cipro) 250 mg PO BID diabetic supplies, [employer]. DIABETIC SHOES WITH 3 INSERTS doxycycline hyclate 100 mg PO BID 30 days ergocalciferol (vitamin D2) 1,250 mcg PO Q14D fenofibrate 160 mg PO DAILY furosemide 20 mg PO DAILY hydralazine 25 mg PO BID 90 days insulin NPH and regular human 100 unit/mL (70-30) 52 units subcut BID@0700,1900 lancets (Microlet Lancet) USE DIRECTED TO CHECK BLOOD GLUCOSE THREE TIMES DAILY levofloxacin 250 mg PO Q48H 21 days lorazepam 1 mg PO BID PRN metoprolol succinate ER 25 mg PO DAILY 90 days nystatin 1 appl topical TID off loading boot As directed omeprazole 20 mg PO DAILY walker (Ultra-Light Rollator mis) To use daily Tobacco use date assessed: 10/04/23 Fall risk assessment: 1 Fall in past year Last assessed Fall Risk: 11/05/23 HPI rash groin down leg on right side HPI Details rash right groin consistent with intertrigo PFSH Medical History (Updated 11/08/23 @ 12:25 by Christopher Zamudio MD) Anemia Hx of type A viral hepatitis Hyperlipidemia Obesity Diabetes mellitus Surgical History (Updated 10/14/23 @ 10:41 by Florentino White MD) History of surgical removal of skin lesion History of biopsy History of excision of lesion H/O varicose vein ligation History of cholecystectomy Family History Father Gastric cancer Mother Acute CVA (cerebrovascular accident) Diabetes Brother Colon cancer Social History Household Members: Children Housing: House Do you presently have visiting nurse or other home services: No Alcohol intake: never Patient Tobacco Use Status: Never used Tobacco e-Cigarette/Vaping Use: Never Used Second Hand Smoke Exposure: No service: No Current occupational status: retired Cognitive needs: Yes (walker ) Hearing needs: No Vision needs: Yes Questionnaire Thrive Questionnaire Date Thrive assessed: 10/04/23 IWONA-7 AMB Questionnaire IWONA-7 Date IWONA - 7 assessed: 10/04/23 Source: Developed by Drs. Wilber Ortega, Vickie Briseno, David Calzada and colleagues, with an educational aide from [employer]. Review of Systems Const Denies chills, Denies headache(s) and Denies weight loss ENT Denies headache(s) Card Denies chest pain, Denies syncope, Denies irregular heart rhythm and Denies dyspnea Resp Denies chest congestion, Denies cough and Denies dyspnea GI Denies abdominal pain, Denies change in stool character, Denies nausea and Denies vomiting Musc Denies deformity and Denies joint swelling Neuro Denies syncope and Denies headache(s) Physical exam (Primary Care) Vital Signs: Last Vital Signs Pulse 86 11/05/23 12:58 BP 146/84 H 11/05/23 12:58 Pulse Ox 98 11/05/23 12:58 Oxygen Delivery Method Room Air 11/05/23 12:58 BMI result Body Mass Index 37.0 Tobacco/Smoking Status: Tobacco use Status Tobacco use date assessed 10/04/23 11/05/23 12:59 Patient Tobacco Use Status Never used Tobacco 11/05/23 12:59 e-Cigarette/Vaping Use Never Used 11/05/23 12:59 Thrive Assessment: Date of Thrive Assessment Date Thrive assessed 10/04/23 11/05/23 12:59 Const General: cooperative, comfortable, no acute distress and alert Neck Neck: Yes no lymphadenopathy Thyroid: Thyroid normal Resp Effort & Inspection: normal respiratory effort Auscultation: clear to auscultation bilaterally Percussion: percussion normal Cardio Jugular venous distension: no JVD Palpation: normal PMI Rate: regular rate Rhythm: regular rhythm Heart sounds: S1 normal heart sound present and S2 normal heart sound present GI Inspection: Yes normal to inspection Palpation (GI): No hepatosplenomegaly present Skin Other: intertrigo right groin Extrem General: Yes no clubbing, cyanosis or edema Assessment and Plan Assessment & Plan (1) Intertrigo: Code(s): L30.4 - Erythema intertrigo Plan: rx sent Medications: New nystatin 1 appl topical TID 30 grams 1RF ciprofloxacin HCl (Cipro) 250 mg PO BID 10 tabs 0RF Coding Level of Care Code Est Pt Level 3 (09755) Diagnoses Intertrigo L30.4
== END 2023-11-05 14:50 | disposition home or self-care (01) ==
PROVIDERS: PCP Internal Medicine; Visit Provider Internal Medicine
DX: L30.4 Erythema intertrigo (principal)
CPT/HCPCS: 99213

== ENCOUNTER 2023-11-08 10:49 | Outpatient (RCR) | payer MEDICARE, SELFPAY | END 2023-12-17 15:00 | disposition home or self-care (01) | LOC: HO.WCC 10:49 | PROVIDERS: PCP Internal Medicine; Visit Provider Surgery | DX: E11.622 Type 2 diabetes mellitus with other skin ulcer (principal); L97.822 Non-pressure chronic ulcer of other part of left lower leg with fat layer exposed; L97.812 Non-pressure chronic ulcer of other part of right lower leg with fat layer exposed; L97.521 Non-pressure chronic ulcer of other part of left foot limited to breakdown of skin; I87.333 Chronic venous hypertension (idiopathic) with ulcer and inflammation of bilateral lower extremity; I87.2 Venous insufficiency (chronic) (peripheral); E11.42 Type 2 diabetes mellitus with diabetic polyneuropathy; I10 Essential (primary) hypertension; Z79.4 Long term (current) use of insulin | CPT/HCPCS: 11042; 11045; 97597 ==

== ENCOUNTER 2023-11-25 14:56 | Outpatient (AMB) | payer MEDICARE, SELFPAY ==
--- NOTE | 2023-11-25 15:00 | MHC.OFFVIS ---
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 DIABETIC SHOES WITH 3 INSERTS ergocalciferol (vitamin D2) 1,250 mcg PO Q14D fenofibrate 160 mg PO DAILY furosemide 20 mg PO DAILY hydralazine 25 mg PO BID 90 days insulin NPH and regular human 100 unit/mL (70-30) 52 units subcut BID@0700,1900 lancets (Microlet Lancet) USE DIRECTED TO CHECK BLOOD GLUCOSE THREE TIMES DAILY lorazepam 1 mg PO BID PRN metoprolol succinate ER 25 mg PO DAILY 90 days nystatin 1 appl topical TID off loading boot As directed omeprazole 20 mg PO DAILY walker (Ultra-Light Rollator misc) To use daily HPI HPI Comments History of Present Illness Details Alonzo was referred here for cardiac arrhythmias, accompanied by her son on today's visit. Patient has a rough past many months due to infection of right foot leading to sepsis admitted twice to the hospital last admission was in July where she was admitted for very prolonged period of time and then subsequently in [facility] with limited exercise activity. While admitted at [facility] she was told when she was monitor that she had episode of atrial fibrillation. However I do not have any records from there. However subsequent Holter monitor done by private cardiology group finally cardiology showed that she was in sinus rhythm during that time. Do not have any copies of echocardiogram. Patient also noted to have significant anemia and says the anemia has worsened. She is also noted to have chronic kidney disease and question anemia due to chronic kidney disease/anemia of chronic disease. She says however she has been anemic for a long period time. Her infection has improved. She has been noticing increasing shortness of breath over the last few weeks with exertion. As per the son she can barely walk much without getting short of breath. She also describes symptoms of getting short of breath sometimes when she is lying down in bed and she has to sit up and sometimes sit up upright to breathe better. She is also notice increased leg swelling predominantly in the right lower extremity but swelling is present in both legs. She said she had venous procedure many years ago and since then she is continued to have right lower extremity swelling. Denies any chest pain. Denies any lightheadedness, syncope. She says occasionally she feels palpitation especially at nighttime when she is resting. COUNT INCLUDES [facility] Medical History Anemia Hx of type A viral hepatitis Hyperlipidemia Obesity Diabetes mellitus Surgical History History of surgical removal of skin lesion History of biopsy History of excision of lesion H/O varicose vein ligation History of cholecystectomy Family History Father Gastric cancer Mother Acute CVA (cerebrovascular accident) Diabetes Brother Colon cancer Social History Household Members: Children Housing: House Do you presently have visiting nurse or other home services: No Alcohol intake: never Patient Tobacco Use Status: Never used Tobacco e-Cigarette/Vaping Use: Never Used Second Hand Smoke Exposure: No service: No Current occupational status: retired Cognitive needs: Yes (walker ) Hearing needs: No Vision needs: Yes Review of Systems Const Denies chills, Denies daytime sleepiness, Denies fatigue, Denies fever(s), Denies frequent falls, Denies poor appetite, Denies snoring, Denies stops breathing during sleep, Denies weakness, Denies weight gain and Denies weight loss Eyes Denies loss of vision ENT Denies dizziness and Denies hearing loss Card Denies chest pain, Denies claudication, Denies leg edema, Denies lightheadedness, Denies palpitations, Denies dyspnea, Denies dyspnea on exertion and Denies orthopnea Resp Denies cough, Denies excessive phlegm production, Denies dyspnea, Denies dyspnea on exertion, Denies snoring and Denies wheezing GI Denies abdominal pain, Denies hematochezia, Denies change in bowel habits, Denies nausea and Denies vomiting Denies urinary frequency and Denies dysuria Musc Denies arthralgias, Denies muscle weakness, Denies numbness and Denies other (frequent falls) Skin/Breast Denies nail changes and Denies rash Neuro Denies Abnormal speech present, Denies dizziness, Denies frequent falls, Denies loss of vision, Denies memory loss, Denies numbness and Denies weakness Psych Denies depression and Denies memory loss Endo Denies fatigue and Denies palpitations Richard/Lymph Reports easy bruising and Reports other (anemia) Aller/Immun Denies wheezing Physical Exam Vital Signs: Last Vital Signs Pulse 84 11/25/23 15:01 BP 130/78 11/25/23 15:01 BMI result Body Mass Index 37.9 Const General: cooperative, comfortable, alert and awake Nutritional Appearance: obese morbidly obese Orientation/consciousness: patient oriented x3 Limitations: wheelchair HEENT Head: Yes normocephalic and Yes atraumatic Neck Neck: Yes trachea midline, Yes supple and Yes other (Difficult to evaluate JVD in upright position with body habitus) Resp Effort & Inspection: decreased respiratory effort Auscultation: clear to auscultation bilaterally Cardio Rhythm: abnormal rhythm irregularly irregular Heart sounds: S1 normal heart sound present, S2 normal heart sound present, no click, no gallops and no murmurs GI Auscultation: normal bowel sounds Skin General skin exam: no rashes or lesions noted Neuro General: patient oriented x3 and no focal motor deficits Speech: No Abnormal speech present Extrem General: No clubbing, No cyanosis and Yes edema (Right greater than left, to the thigh) Office Procedures EKG Details: EKG shows atrial fibrillation with poor R-wave progression most likely due to lead placement with nonspecific ST changes 13869-[id number], Complete Assessment & Plan Assessment & Plan (1) SOB (shortness of breath): Code(s): R06.02 - Shortness of breath Plan: Patient with increasing shortness of breath exertion with some concerning symptoms suggestive of orthopnea. Clinically also appears to be fluid overload with edema in both lower extremity. Advise BNP to further guide therapy. She is already on Lasix 20 mg but may require dose of Lasix and may have a component of congestive heart failure. Obtain an echocardiogram to assess for LV systolic and diastolic function as well as pulmonary hypertension and right-sided function. Her shortness of breath however appears to be multifactorial given that she was recently hospitalized for prolonged period of time as a significant component of deconditioning along with significant anemia and atrial fibrillation with loss of AV synchrony. Discuss the heart failure can be treated and requires further workup. (2) Atrial fibrillation: Code(s): I48.91 - Unspecified atrial fibrillation Plan: Atrial fibrillation which now appears to be persistent. She is having intermittent symptoms of palpitation most likely rapid heart rate. She says she could not tolerate in the past higher dose of metoprolol therefore I have taken the liberty to switch her to Cardizem CD 120 mg daily to get better rate control and improve her symptoms. Suggest a Holter monitor to assess for adequate rate control. Also recommend oral anticoagulation therapy given her persistent atrial fibrillation but this comes at increased risk given her advanced age as well as underlying significant anemia. Suggest Eliquis 2.5 mg b.i.d. given her creatinine about 1.5 and age above 80. Follow-up CBC in 1-2 weeks. Follow up in the clinic in 4 weeks to discuss rhythm control approach Orders: Orders B Type Natriuretic Peptide 11/25/23 R06.02 - Shortness of breath Basic Metabolic Panel 11/25/23 R06.02 - Shortness of breath CA echo transthoracic complete 11/25/23 I48.91 - Unspecified atrial fibrillation ECG 3 day holter monitor 11/25/23 I48.91 - Unspecified atrial fibrillation Medications: New diltiazem HCl CD (Cardizem CD) 120 mg PO DAILY 30 caps 5RF apixaban (Eliquis) 2.5 mg PO BID 60 tabs 5RF Discontinued metoprolol succinate ER Discontinued Reason: Doctor's Order 25 mg PO DAILY 90 days 90 tabs 8RF Coding Level of Care Code New Pt Level 4 (37126) Diagnoses SOB (shortness of breath) R06.02 Atrial fibrillation I48.91 CPT Codes EKG - CPT: 56432-[id number], Complete ([id number])
[2023-11-25 15:01] VITALS: BP 130/78; PULSE 84; BMI 37.9
== END 2023-11-25 15:47 | disposition home or self-care (01) ==
PROVIDERS: PCP Internal Medicine; Visit Provider Internal Medicine Cardiovascular Disease
DX: R06.02 Shortness of breath (principal); I48.91 Unspecified atrial fibrillation
CPT/HCPCS: 93010; 99214

== ENCOUNTER → 2023-11-25 14:56 | Outpatient (BNVA) | payer MEDICARE, SELFPAY | PROVIDERS: PCP Internal Medicine; Visit Provider Internal Medicine Cardiovascular Disease | DX: R06.02 Shortness of breath (principal); I48.91 Unspecified atrial fibrillation; D64.9 Anemia, unspecified | CPT/HCPCS: 93005; 99212 ==

== ENCOUNTER 2023-11-26 10:59 | Outpatient (AMB) | payer MEDICARE, SELFPAY ==
[2023-11-26 12:13] VITALS: BMI 37.9
--- NOTE | 2023-11-26 12:13 | MHC.OFFVIS ---
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 Patient reports her pain is on and off. Patient son is her with her. Matt explains she has a funny way of walking. States she walks inward and put more pressure on the lateral aspect of her foot. Patient is diabetic and has neuropathy. States she walks very little and use her wheelchair to ambulate. 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 Patient reports her pain is on and off. She does have a h/o diabetes with chronic wounds and neuropathy. She has a h/o excision of 5th metatarsal from osteomyelitis . She states she walks along the lateral side of the foot and has pain in the foot that extends into the ankle. [facility] Medical History (Updated 11/26/23 @ 13:33 by Minor Ortega PA-C) Anemia Hx of type A viral hepatitis Hyperlipidemia Obesity Diabetes mellitus Surgical History History of surgical removal of skin lesion History of biopsy History of excision of lesion H/O varicose vein ligation History of cholecystectomy Family History Father Gastric cancer Mother Acute CVA (cerebrovascular accident) Diabetes Brother Colon cancer Social History Household Members: Children Housing: House Do you presently have visiting nurse or other home services: No Alcohol intake: never Patient Tobacco Use Status: Never used Tobacco e-Cigarette/Vaping Use: Never Used Second Hand Smoke Exposure: No service: No Current occupational status: retired Cognitive needs: Yes (walker ) Hearing needs: No Vision needs: Yes Review of Systems Const All systems reviewed & are unremarkable except as noted in HPI and below Physical Exam Vital Signs: BMI result Body Mass Index 37.9 Const General: cooperative and no acute distress Orientation/consciousness: patient oriented x3 Resp Effort & Inspection: normal respiratory effort and able to speak in complete sentences Cardio Peripheral pulses: Peripheral pulses 2+ throughout Neuro General: patient oriented x3 Extrem Other: Right foot is normal to inspection. No open wounds. She does have a tubie stocking with gauze to the right ankle from wound care. Tenderness along the top of the foot into the medial and lateral side of the ankle. NVI. Results Reviewed Results Reviewed: xrays of the right foot show severe of with absnce of 5th metatarsal phalanx. Assessment & Plan Assessment & Plan (1) Osteoarthritis of right foot: Code(s): M19.071 - Primary osteoarthritis, right ankle and foot Plan: I explained to the patient and the son the extent of the oa and options which include lace up ankle brace and PT. They mentioned they do have home PT and will discuss initiating some exercises for the ankle with her. I encouraged them to discuss further with podiatry pain in the foot since she has a relationship with them but she does have diabetes so I do not think injections would be an option. Coding Level of Care Code New Pt Level 3 (50909) Diagnoses Osteoarthritis of right foot M19.071
== END 2023-11-26 13:00 | disposition home or self-care (01) ==
PROVIDERS: PCP Internal Medicine; Visit Provider Physician Assistant
DX: M19.071 Primary osteoarthritis, right ankle and foot (principal)
CPT/HCPCS: 99203

== ENCOUNTER → 2023-11-26 10:59 | Outpatient (BNVA) | payer MEDICARE, SELFPAY | PROVIDERS: PCP Internal Medicine; Visit Provider Physician Assistant | DX: M19.071 Primary osteoarthritis, right ankle and foot (principal) | CPT/HCPCS: 99202 ==

== ENCOUNTER 2023-12-18 20:02 | Inpatient (IN) | payer MEDICARE, SELFPAY ==
--- NOTE | 2023-12-18 | ECG_ITS ---
Test Reason : SOB Blood Pressure : / mmHG Vent. Rate : 088 BPM Atrial Rate : 000 BPM P-R Int : 000 ms QRS Dur : 096 ms QT Int : 336 ms P-R-T Axes : 000 004 047 degrees QTc Int : 406 ms Poor data quality Atrial fibrillation Cannot rule out Anterior infarct (cited on or before 29-NOV-2006) ST & T wave abnormality, consider inferior ischemia Abnormal ECG When compared with ECG of 06-OCT-2023 10:51, Atrial fibrillation has replaced Sinus rhythm Criteria for Inferior infarct are no longer Present Serial changes of Anterior infarct Present Referred By: Generic ED Physician Electronically Signed By:EFREN CM MD
--- NOTE | ~2023-12-18 | XR_ITS ---
EXAMINATION: XR CHEST CLINICAL INFORMATION: Shortness of breath COMPARISON: 12/18/2023 TECHNIQUE: Frontal view of the chest was obtained. FINDINGS: Mild cardiomegaly with slight distention of the pulmonary vessels. Bibasilar edema and effusions are noted. No change. XR/XR chest 1V IMPRESSION: Stable congestive change.
--- NOTE | ~2023-12-18 | XR_ITS ---
EXAMINATION: XR CHEST CLINICAL INFORMATION: CHF COMPARISON: None available. TECHNIQUE: Frontal view of the chest was obtained. FINDINGS: Lung volumes are symmetric. There is prominence of the central vasculature along with symmetric perihilar haziness and likely small pleural effusions, overall favoring pulmonary edema. No evidence of pneumothorax. Cardiac silhouette appears mildly enlarged for technique. No acute osseous findings are seen. XR/XR chest 1V IMPRESSION: Findings favoring pulmonary edema with small pleural effusions.
[2023-12-18 20:14] VITALS: BP 136/87; PULSE 88; PULSE 91; RESP 20; O2SAT 96; O2SAT 99; BMI 43.0
--- NOTE | 2023-12-18 20:36 | ED_ITS ---
HPI - SOB/Dyspnea General Chief Complaint: Dyspnea Stated Complaint: SOB Time Seen by Provider: 12/18/23 20:36 Source: patient, family and EMS Mode of arrival: EMS Limitations: no limitations History of Present Illness HPI Narrative: Patient's history of hyperlipidemia diabetes new diagnoses of atrial fibrillation on 11/25/2023 on diltiazem and Eliquis with history of right Charcot foot came from rehab center for increased shortness of breath and confusion difficulty catching her breath for last few days got worse today no fever patient denied any chest pain was little confused per family member Related Data Home Medications ?Medication ?Instructions ?Recorded ?Confirmed ergocalciferol (vitamin D2) 1,250 1,250 mcg PO Q14D 01/29/21 11/25/23 mcg (50,000 unit) capsule insulin human U-100 NPH-regulr 52 unit subcut BID@0700,1900 03/23/23 11/25/23 70-30 mix 100 unit/mL subcutaneous susp Previous Rx's ?Medication ?Instructions ?Recorded walker (Ultra-Light Rollator misc) #1 ea 07/15/21 allopurinol 100 mg tablet 100 mg PO DAILY #90 tabs 09/29/22 furosemide 20 mg tablet 20 mg PO DAILY #90 tabs 12/23/22 omeprazole 20 mg capsule,delayed 20 mg PO DAILY #90 caps 12/23/22 release off loading boot #1 ea 03/28/23 chair, wheel (Wheel chair) #1 ea 04/15/23 chair, wheel (Wheel chair) #1 ea 05/25/23 fenofibrate 160 mg tablet 160 mg PO DAILY #90 tabs 06/14/23 diabetic supplies, miscellan. #1 ea 06/29/23 hydralazine 25 mg tablet 25 mg PO BID 90 days #180 tabs 09/16/23 lorazepam 1 mg tablet 1 mg PO BID PRN anxiety #60 tabs 10/06/23 blood sugar diagnostic (Accu-Chek #300 strips 11/04/23 Radha Plus test strips) nystatin 100,000 unit/gram topical 1 appl topical TID #30 grams 11/05/23 powder lancets (Microlet Lancet) #100 ea 11/22/23 apixaban 2.5 mg tablet (Eliquis) 2.5 mg PO BID #60 tabs 11/25/23 diltiazem HCl 120 mg 120 mg PO DAILY #30 caps 11/25/23 capsule,extended release 24 hr (Cardizem CD) Allergies Allergy/AdvReac Type Severity Reaction Status Date / Time codeine [CODEINE] Allergy Intermediate BACK PAIN Verified 12/18/23 20:17 pollen extracts [POLLEN] Allergy Mild SINUS Verified 12/18/23 20:17 IRRITATION Review of Systems 2 Review of Systems: Yes all other systems are reviewed and are negative PMFSH Past Medical History Medical History Anemia Hx of type A viral hepatitis Hyperlipidemia Obesity Diabetes mellitus Surgical History History of surgical removal of skin lesion History of biopsy History of excision of lesion H/O varicose vein ligation History of cholecystectomy Family History Family History Father Gastric cancer Mother Acute CVA (cerebrovascular accident) Diabetes Brother Colon cancer Social History Social History Household Members: Children Housing: House Do you presently have visiting nurse or other home services: No Alcohol intake: never Patient Tobacco Use Status: Never used Tobacco Smoked in Last 30 Days: No e-Cigarette/Vaping Use: Never Used Second Hand Smoke Exposure: No Use of substances other than those prescribed or required for medical reasons: No Advance Directives: No Advance Directives Information Provided: No Do you have a plan to hurt others: No Plan service: No Current occupational status: retired Cognitive needs: Yes (walker ) Hearing needs: No Vision needs: Yes Physical Exam 2 Vital Signs: Vital Signs: Last Vital Signs Temp 97.4 F 12/18/23 20:55 Pulse 86 12/18/23 22:13 Resp 20 12/18/23 22:13 BP 142/69 H 12/18/23 22:55 Pulse Ox 97 12/18/23 22:13 O2 Del Method Room Air 12/18/23 22:13 BMI result Body Mass Index 43.0 Appearance: Alert. Oriented X3. Sick looking Eyes: No pallor or icterus ENT: Pharynx normal. Oral Mucosa moist Neck: Normal inspection. Neck supple. CVS: Irregularly irregular heart rate no murmur, Pulses normal. Respiratory: No respiratory distress. Equal air entry bilateral, bilateral conductive sounds Abdomen: Soft and nontender. Bowel sounds are present, no mass palpable, no CVA tenderness Skin: Skin warm and dry. Normal skin color. Normal skin turgor. Extremities: No lower extremity edema. No calf tenderness right foot in splint chronic skin changesof the left foot Neuro: Oriented X 3. No motor deficit. Medications Administered Discontinued Medications Generic Name Dose Route Start Last Admin Trade Name Freq PRN Reason Stop Dose Admin Furosemide 20 mg 12/18/23 21:58 12/18/23 22:55 Furosemide 20 Mg/2 Ml Vial IVPUSH 12/18/23 21:59 20 mg ONCE ONE Administration Protocol Medical Decision Making Medical Decision Making [facility] Narrative: Patient with atrial fibrillation with increased shortness of breath workup showed pulmonary venous congestion and elevated BNP will admit patient for IV diuresis saturating 96% at room air at this time Differential Diagnosis Differential Diagnoses: The differential diagnosis associated with the presentation includes CHF/ACS/pneumonia Admission/Observation Consideration of admission/observation: Escalation of care including admission/observation considered Consult Healthcare Provider Management of the patient was discussed with: Hospitalist Lab Data [facility] Lab Attestation statement: I reviewed the patient's lab results. 12/18/23 20:52 12/18/23 20:52 Labs: Lab Results 12/18/23 12/18/23 Range/Units 20:52 20:54 WBC 6.5 (4.8-10.8) X10*3/uL RBC 4.03 L (4.20-5.50) X10*6/uL Hgb 10.0 L (12.0-16.0) g/dl Hct 32.8 L (37.0-47.0) % MCV 81.4 (80.0-98.0) fL MCH 24.8 L (27.0-33.0) pg MCHC 30.5 L (31.0-35.0) g/dl RDW 17.4 H (11.0-16.0) % Plt Count 386 D (160-400) X10*3/uL MPV 10.8 (9.4-12.3) fL Immature Gran % (Auto) 0.5 H (0.0-0.4) % Neut % (Auto) 82.6 H (45-73) % Lymph % (Auto) 9.0 L (20-40) % [facility] % (Auto) 5.1 (2-11) % Eos % (Auto) 2.5 (0-4) % Baso % (Auto) 0.3 (0-2) % Lymph # (Auto) 0.6 L (1.2-4.9) X10*3/uL [facility] # (Auto) 0.3 (0.1-1.2) X10*3/uL Eos # (Auto) 0.2 (0.0-0.4) X10*3/uL Baso # (Auto) 0.0 (0.0-0.2) X10*3/uL Abs Immat Gran (auto) 0.03 (0.00-0.03) X10*3/uL Absolute Neuts (auto) 5.3 (2.0-8.3) x10*3/uL Absolute Nucleated RBC 0.000 (0.0-0.012) X10*3/uL Nucleated RBC % (auto) 0.0 (0.0-0.2) /100WBC PT 13.1 (11.1-13.3) SEC INR 1.1 (0.9-1.1) APTT 35.1 (26.0-36.8) SEC VBG pH 7.44 H (7.32-7.43) VBG pCO2 52 mmHg VBG pO2 42 mmHg VBG HCO3 36 H (22-26) mmol/L VBG O2 Saturation 68.0 % VBG Base Excess 10.7 mmol/L Sodium 147 H (135-145) mmol/L Potassium 3.4 (3.3-5.1) mmol/L Chloride 105 (96-108) mmol/L Carbon Dioxide 34 H (22-29) mmol/L Anion Gap 11 L (12-20) BUN 30 H (9-16) mg/dL Creatinine 1.36 (0.5-1.4) mg/dL Estim Creat Clear Calc 34.0 Estimated GFR 37 Random Glucose 171 H (60-115) mg/dL Calcium 10.1 D (8.4-10.2) mg/dL Magnesium 1.6 (1.6-2.6) mg/dL Total Bilirubin 0.4 (0.0-1.0) mg/dL AST 31 (5-31) U/L ALT 15 (0-31) U/L Alkaline Phosphatase 117 (39-117) U/L Troponin I High Sens 31.3 H (<3.5-17.0) ng/L B-Natriuretic Peptide 222 H (<100) pg/mL Total Protein 6.7 (6.5-8.0) g/dL Albumin 3.0 L (3.5-5.0) g/dL Influenza Type A (PCR) NEGATIVE (Negative) Influenza Type B (PCR) NEGATIVE (Negative) RSV RNA Qual (PCR) NEGATIVE (Negative) SARS-CoV-2 RNA (RT-PCR) NEGATIVE (Negative) Independent Interpretation I performed an independent interpretation of an: EKG and Plain X-Ray Interpretation: Atrial fibrillation with ventricular rate of 88 beats per minute nonspecific ST T wave changes no acute ischemia Radiology Impression Discussion of test interpretation with radiology: I have reviewed the radiologist's reading. Discharge Plan Discharge Clinical Impression: Acute on chronic clinical systolic heart failure, Atrial fibrillation Patient Disposition: Admitted As Inpatient Print Language: Wallisian
[2023-12-18 20:44] VITALS: BP 155/72; PULSE 88; RESP 22; O2SAT 97
[2023-12-18 20:55] VITALS: TEMP 36.3
[2023-12-18 20:57] LABS: MANUAL DIFF FLAG NO
[2023-12-18 20:58] LABS: Basophils Percent Auto 0.3 % (0-2); Eosinophils Absolute Auto 0.2 X10*3/uL (0.0-0.4); Eosinophils Percent Auto 2.5 % (0-4); Hematocrit 32.8 % (37.0-47.0); Imm Gran Abs Auto 0.03 X10*3/uL (0.00-0.03); Imm Gran Pct Auto 0.5 % (0.0-0.4); Lymphocytes Absolute Auto 0.6 X10*3/uL (1.2-4.9); Mean Corpuscular HGB Conc 30.5 g/dl (31.0-35.0); Mean Corpuscular Hemoglobin 24.8 pg (27.0-33.0); Mean Corpuscular Volume 81.4 fL (80.0-98.0); Mean Platelet Volume 10.8 fL (9.4-12.3); Monocytes Absolute Auto 0.3 X10*3/uL (0.1-1.2); Monocytes Percent Auto 5.1 % (2-11); Neutrophils Absolute Auto 5.3 x10*3/uL (2.0-8.3); Neutrophils Percent Auto 82.6 % (45-73); Platelet Count 386 X10*3/uL (160-400); Red Blood Count 4.03 X10*6/uL (4.20-5.50); Red Cell Distribution Width 17.4 % (11.0-16.0); White Blood Count 6.5 X10*3/uL (4.8-10.8)
[2023-12-18 21:02] LABS: VBG Base Excess 10.7 mmol/L; VBG HCO3 36 mmol/L (22-26); VBG pCO2 52 mmHg; VBG pH 7.44 (7.32-7.43); VBG pO2 42 mmHg
[2023-12-18 21:02] LABS: Venous Blood Gas Refer to POC result
[2023-12-18 21:07] LABS: INTERNATIONAL NORM RATIO 1.1 (0.9-1.1); Prothrombin Time 13.1 SEC (11.1-13.3)
[2023-12-18 21:10] LABS: Partial Thromboplastin Time 35.1 SEC (26.0-36.8)
[2023-12-18 21:13] LABS: Alanine Aminotransferase 15 U/L (0-31); Alkaline Phosphatase 117 U/L (39-117); Anion Gap 11 (12-20); Aspartate Amino Transferase 31 U/L (5-31); Bilirubin Total 0.4 mg/dL (0.0-1.0); Blood Urea Nitrogen 30 mg/dL (9-16); Calcium 10.1 mg/dL (8.4-10.2); Carbon Dioxide 34 mmol/L (22-29); Chloride 105 mmol/L (96-108); Estimated Glomerular Filt Rate 37; Glucose Random 171 mg/dL (60-115); Magnesium 1.6 mg/dL (1.6-2.6); Potassium 3.4 mmol/L (3.3-5.1); Sodium 147 mmol/L (135-145); Total Protein 6.7 g/dL (6.5-8.0)
[2023-12-18 21:20] LABS: Troponin-I High Sensitivity 31.3 ng/L (<3.5-17.0)
[2023-12-18 21:25] LABS: B Type Natriuretic Peptide 222 pg/mL (<100)
[2023-12-18 21:40] LABS: Influenza A PCR NEGATIVE (Negative); Influenza B PCR NEGATIVE (Negative); Resp Syncy Virus RNA Qual PCR NEGATIVE (Negative); SARS COV2 PCR INHOUSE NEGATIVE (Negative)
[2023-12-18 22:13] VITALS: BP 142/69; PULSE 86; RESP 20; O2SAT 97
[2023-12-18 22:55] VITALS: BP 142/69
[2023-12-18] MEDS: Furosemide 20 MG/2 ML VIAL IVPUSH (22:55)
--- NOTE | 2023-12-18 22:59 | PC.NURSE ---
Medicated with Lasix as ordered. Purewick applied to monitor urine output as pt is not ambulatory.
[2023-12-19] VITALS (10 sets, daily range): BP systolic 138–169; BP diastolic 65–71; PULSE 77–103; RESP 16–27; TEMP 36.1–37.1; O2SAT 96–100
--- NOTE | 2023-12-19 01:40 | PC.NURSE ---
Pt o2 sat noted to drop to 86% RA as pt is sleeping. Pt placed on 1L nc with o2 improvement to 100%.
[2023-12-19] MEDS: 0.9 % Sodium Chloride Flush 3 ML SYRINGE IVFLUSH ×3 (01:41→16:49)
--- NOTE | 2023-12-19 04:46 | P.HPHOSP_ITS ---
History of Present Illness Date of Service: 12/18/23 Attending physician on admission: Guzman Angel Chief Complaint: Shortness on breath Susan Laurent is 88 year old woman with past medical history remarkable for essential hypertension, type 2 diabetes mellitus on insulin, gout, recent displaced bimalleolar fracture of right ankle with ankle mortise disruption, osteomyelitis in the right foot s/p resection of the right 5th metatarsal, GERD, CKD stage 3 (baseline creatinine 1.85), ?atrial fibrillation on Eliquis, chronic anemia on Procrit as an outpatient, hyperlipidemia and obesity was brought to the emergency department from [facility] complaining of worsening shortness of breath over the last several weeks and occasional cough. Shortness O was worse on exertion Her son who was at also noted that she has been lethargic at times and confused. Patient also reported dizziness and edema to the lower extremities. The patient denied any headache, chest pain or palpitations. Denies acute abdominal pain, vomiting, nausea or diarrhea. She did have chronic wound to the lower extremities. Chart review: Patient was discharged from [facility] on December [address] [facility]. She was evaluated there for right ankle swelling and inability to ambulate. During the hospitalization her Lasix was increased from 20 mg to 40 mg PO daily. The patient's son was at bedside and was constantly expressing his frustrations. He feels that his mother has not have the best at [facility] rehab sent. In the ED, she was found to have stable vital signs except for some tachypnea. Her oxygen saturation is normal on room air. Blood workup showed no leukocytosis. Hemoglobin is at baseline. There is no thrombocytopenia. Venous gas showed mild metabolic alkalosis. CO2 is 52. BNP is 222 and troponin 31.3 Viral testing is negative for influenza, RSV and COVID-19. CXR showed pulmonary edema with small pleural effusions. [facility] Medical History Anemia Hx of type A viral hepatitis Hyperlipidemia Obesity Diabetes mellitus Family History Father Gastric cancer Mother Acute CVA (cerebrovascular accident) Diabetes Brother Colon cancer Surgical History History of surgical removal of skin lesion History of biopsy History of excision of lesion H/O varicose vein ligation History of cholecystectomy Social History Household Members: Children Housing: House Do you presently have visiting nurse or other home services: No Alcohol intake: never Patient Tobacco Use Status: Never used Tobacco Smoked in Last 30 Days: No e-Cigarette/Vaping Use: Never Used Second Hand Smoke Exposure: No Use of substances other than those prescribed or required for medical reasons: No Advance Directives: No Advance Directives Information Provided: No Do you have a plan to hurt others: No Plan Nutrition Risks: No Nutritional Risk service: No Current occupational status: retired Cognitive needs: Yes (walker ) Hearing needs: No Vision needs: Yes Meds Allergies Allergy/AdvReac Type Severity Reaction Status Date / Time codeine [CODEINE] Allergy Intermediate BACK PAIN Verified 12/18/23 20:17 pollen extracts [POLLEN] Allergy Mild SINUS Verified 12/18/23 20:17 IRRITATION Active Medications: Current Medications Acetaminophen (Acetaminophen 325 Mg Tablet) 975 mg PO Q6H PRN PRN Reason: mild pain, headche or fever Sodium Chloride (0.9 % Sodium Chloride Flush 3 Ml Syringe) [facility] Last Admin: 12/19/23 01:41 Dose: 3 ml Home Medications ?Medication ?Instructions ?Recorded ?Confirmed ?Last Taken ?Type ergocalciferol (vitamin D2) 1,250 1,250 mcg PO Q14D 01/29/21 11/25/23 2 Days Ago History mcg (50,000 unit) capsule ~03/21/23 insulin human U-100 NPH-regulr 52 unit subcut BID@0700,1900 03/23/23 11/25/23 03/23/23 History 70-30 mix 100 unit/mL subcutaneous susp furosemide 20 mg tablet 40 mg PO DAILY 12/19/23 12/19/23 Unknown History omeprazole 20 mg capsule,delayed 20 mg PO DAILY 12/19/23 12/19/23 Unknown History release Physical Exam 2 Vital Signs and Narrative: Vital Signs: Last Vital Signs Temp 97.5 F 12/19/23 03:37 Pulse 95 12/19/23 03:37 Resp 20 12/19/23 03:37 BP 162/68 H 12/19/23 03:37 Pulse Ox 98 12/19/23 03:37 O2 Del Method Nasal Cannula 12/19/23 03:37 O2 Flow Rate 1 12/19/23 03:37 BMI result Body Mass Index 43.0 Constitutional - Awake and Alert. Obese. Cooperative. Afebrile. HEENT - Atraumatic. Scant hair. Very dry oral mucosa and lips. Heart - RRR. Distant sounds. Lungs - Normal lung expansion, Normal respiratory effort, No respiratory distress. No tachypnea. Bibasilar crackles. No wheezing. No rhonchi. Abdomen - Obese, nontender; +BS; No rebound or guarding Extremities - Right: Posterior splint in place. Left leg: Clean bandages noted -recently changed (12/18/23) Musculoskeletal - Normal inspection, normal ROM Skin - Warm/Dry Neurological - Alert & oriented x3. No facial droop. Normal speech. Psychological - Depressed affect Results Labs 12/18/23 20:52 12/18/23 20:52 Labs: Laboratory Results - last 24 hr 12/18/23 12/18/23 20:52 20:54 MCV 81.4 MCH 24.8 L MCHC 30.5 L RDW 17.4 H Plt Count 386 D MPV 10.8 Immature Gran % (Auto) 0.5 H Neut % (Auto) 82.6 H Lymph % (Auto) 9.0 L [place] % (Auto) 5.1 Eos % (Auto) 2.5 Baso % (Auto) 0.3 Lymph # (Auto) 0.6 L [place] # (Auto) 0.3 Eos # (Auto) 0.2 Baso # (Auto) 0.0 Abs Immat Gran (auto) 0.03 Absolute Neuts (auto) 5.3 Absolute Nucleated RBC 0.000 Nucleated RBC % (auto) 0.0 PT 13.1 INR 1.1 APTT 35.1 VBG pH 7.44 H VBG pCO2 52 VBG pO2 42 VBG HCO3 36 H VBG O2 Saturation 68.0 VBG Base Excess 10.7 Anion Gap 11 L Estim Creat Clear Calc 34.0 Estimated GFR 37 Random Glucose 171 H Calcium 10.1 D Magnesium 1.6 Total Bilirubin 0.4 AST 31 ALT 15 Alkaline Phosphatase 117 Troponin I High Sens 31.3 H B-Natriuretic Peptide 222 H Total Protein 6.7 Albumin 3.0 L Influenza Type A (PCR) NEGATIVE Influenza Type B (PCR) NEGATIVE RSV RNA Qual (PCR) NEGATIVE SARS-CoV-2 RNA (RT-PCR) NEGATIVE Imaging Radiologist's Impressions: Impressions Chest X-Ray 12/18/23 20:44 IMPRESSION: Findings favoring pulmonary edema with small pleural effusions. Assessment and Plan (1) Pulmonary edema: Qualifiers: Chronicity: acute Qualified Code(s): J81.0 - Acute pulmonary edema Status: Acute (2) SOB (shortness of breath): Status: Acute (3) Anemia: Qualifiers: Anemia type: due to chronic kidney disease Chronic kidney disease stage: stage 3 (moderate) Chronic kidney disease stage 3 subtype: stage 3b (GFR 30-44) Qualified Code(s): N18.32 - Chronic kidney disease, stage 3b; D63.1 - Anemia in chronic kidney disease Status: Acute (4) Gout: Qualifiers: Chronicity: chronic Gout etiology: unspecified cause Gout site: u nspecified site Presence of tophus: without tophus Qualified Code(s): M1A.9XX0 - Chronic gout, unspecified, without tophus (tophi) Status: Acute (5) CKD (chronic kidney disease) stage 4, GFR 15-29 ml/min: Status: Acute (6) Hyperlipidemia: Qualifiers: Hyperlipidemia type: unspecified Qualified Code(s): E78.5 - Hyperlipidemia, unspecified Status: Acute (7) Obesity: Qualifiers: Body mass index: BMI 40.0-44.9 Obesity classification: adult class 3 (BMI >= 40) Obesity type: due to excess calories Serious obesity comorbidity presence: with serious comorbidity Qualified Code(s): E66.01 - Morbid (severe) obesity due to excess calories; Z68.41 - Body mass index [BMI] 40.0-44.9, adult Status: Acute (8) Diabetes mellitus: Qualifiers: Diabetes mellitus complication status: with other specified complication Diabetes mellitus usp insulin use: without termination clerk use Diabetes mellitus type: type 2 Qualified Code(s): E11.69 - Type 2 diabetes mellitus with other specified complication Status: Acute Plan Susan Laurent is 88 year old woman admitted with: * Pulmonary edema likely underlying congestive heart failure. Admit to hospitalist service. Telemetry. Pulse oximetry. Supplemental O2 to keep O2 sats > 90%. Obtain TTE. Lasix 40 mg IV BID. * Mild hypernatremia. Patient was encouraged to drink more water. Will avoid IV fluids with D5 or half saline to avoid fluid overload. Continue to monitor sodium level. * Essential hypertension. Continue diltiazem and hydralazine. * ? Atrial fibrillation. Continue Eliquis 2.5 mg PO bid. * Chronic wound to the lower extremity. Wound care consult. * Type 2 diabetes mellitus. BG checks before meals at bedtime. Hold insulin 70/30. Start Lantus and insulin sliding scale. * Hyperlipidemia. Continue fenofibrate. * GERD. Continue PPI. * Gout. Continue allopurinol. * CKD stage 3B. Creatinine today is better than baseline, avoid nephrotoxic agents. Continue to monitor renal function. * Chronic anemia. Getting Procrit injections as an outpatient. Continue to monitor H&H. * Obesity. BMI 43.0 kg/m2. * Recent displaced bimalleolar fracture of right ankle with ankle mortise disruption. Right leg splint in place. F/O as an outpatient by Ortho. * Gout. Continue allopurinol. * History of osteomyelitis in the right foot s/p resection of the right 5th metatarsal. * Vitamin-D deficiency. Vitamin-D 50,000 units every 14 days. DVT prophylaxis: Eliquis Code status: Full Patient will need hospitalization for at least 2 midnights for pulmonary edema therapy with IV diuresis and close monitoring of vital signs. Quality Stroke Does the patient have a stroke diagnosis?: No VTE Prior VTE?: No VTE Risk Level:: Medical - moderate - high VTE Device Contraindication: Treatment Not Indicated VTE Drug Contraindication: N/A - Med Ordered
[2023-12-19 05:34] LABS: MANUAL DIFF FLAG NO
[2023-12-19 05:37] LABS: Basophils Percent Auto 0.3 % (0-2); Eosinophils Absolute Auto 0.2 X10*3/uL (0.0-0.4); Eosinophils Percent Auto 3.7 % (0-4); Hematocrit 32.8 % (37.0-47.0); Hemoglobin 10.1 g/dl (12.0-16.0); Imm Gran Abs Auto 0.03 X10*3/uL (0.00-0.03); Imm Gran Pct Auto 0.5 % (0.0-0.4); Lymphocytes Absolute Auto 0.7 X10*3/uL (1.2-4.9); Lymphocytes Percent Auto 11.3 % (20-40); Mean Corpuscular HGB Conc 30.8 g/dl (31.0-35.0); Mean Corpuscular Hemoglobin 25.1 pg (27.0-33.0); Mean Corpuscular Volume 81.4 fL (80.0-98.0); Monocytes Absolute Auto 0.3 X10*3/uL (0.1-1.2); Monocytes Percent Auto 5.1 % (2-11); Neutrophils Absolute Auto 5.1 x10*3/uL (2.0-8.3); Neutrophils Percent Auto 79.1 % (45-73); Platelet Count 354 X10*3/uL (160-400); Red Blood Count 4.03 X10*6/uL (4.20-5.50); Red Cell Distribution Width 17.5 % (11.0-16.0); White Blood Count 6.5 X10*3/uL (4.8-10.8)
[2023-12-19 05:53] LABS: Magnesium 1.7 mg/dL (1.6-2.6)
--- NOTE | 2023-12-19 06:41 | MHC.EDTECH ---
Pt rounded on and vital signs taken. Height and weight not documented at this time due to scale being inaccurate and reading 33.7 kg when the patient weighs more than that.
[2023-12-19] MEDS: Insulin Lispro 100 UNIT/ML 3 ML VIAL SUBCUT ×3 (07:43→22:17)
--- NOTE | 2023-12-19 07:45 | PC.NURSE ---
patient awake, patient cleaned up this morning, found to be incontinent of urine, patient cleaned up, linens changed. patient is alert and oriented, has bandage to the right leg, dry and intact, cast to the left leg. patient VSS, respirations equal and unlabored, currently on 1lNC. patient is sitting up eating breakfast.
[2023-12-19 08:27] LABS: Glucose, Whole Blood 173 mg/dL (60-115)
--- NOTE | 2023-12-19 09:14 | PHA.MEDREC ---
Pharmacy Consult ? Medication Reconciliation Pharmacy has completed the medication reconciliation. Med rec complete using list from [facility].
[2023-12-19 09:16] LABS: Anion Gap 14 (12-20); Blood Urea Nitrogen 31 mg/dL (9-16); Calcium 9.9 mg/dL (8.4-10.2); Carbon Dioxide 32 mmol/L (22-29); Chloride 103 mmol/L (96-108); Creatinine Clr Calc Pharmacy 33.1; Estimated Glomerular Filt Rate 35; Glucose Random 160 mg/dL (60-115); Potassium 3.5 mmol/L (3.3-5.1); Sodium 145 mmol/L (135-145)
[2023-12-19] MEDS: allopurinoL 100 MG TABLET PO (09:47)
[2023-12-19] MEDS: dilTIAZem HCL CD 120 MG CAP.ER.DEG PO (09:48)
[2023-12-19] MEDS: Apixaban 2.5 MG TABLET PO ×2 (09:48→21:06)
[2023-12-19] MEDS: Fenofibrate 160 MG TABLET PO (09:48)
[2023-12-19] MEDS: Furosemide 40 MG/4 ML VIAL IVPUSH (09:49)
[2023-12-19] MEDS: hydrALAZINE HCl 25 MG TABLET PO ×2 (09:49→21:06)
[2023-12-19] MEDS: Insulin Glargine,Hum.rec.anlog 100 UNIT/ML 10 ML VIAL 12 UNIT SUBCUT (09:51)
[2023-12-19] MEDS: Omeprazole 20 MG CAPSULE.DR PO (10:35)
--- NOTE | 2023-12-19 11:22 | PM.EVENT ---
Event Note Date of Service: 12/19/23 Event Note: Seen and evaluated this morning Sodium level improved to 145 Breathing better now, saturating well on RA continue IV lasix, decrease to daily only follow I\O Time Spent With Patient Time: Total time managing care of this patient today ____ minutes.
[2023-12-19 13:42] LABS: Glucose, Whole Blood 281 mg/dL (60-115)
--- NOTE | 2023-12-19 14:56 | MHC.CM.PN ---
IMM 12/19/23, discussed with son / HCP, Matt, left in room for him. Pt came to hosp from [facility]. She was only there a few days. Son reports that he does not want pt to return there, very unhappy with care, said they did not provide any therapy to pt. She has been in the past to [facility], and [facility]. He said those would both be acceptable for her to DC to now. Pt lives with son, they had [facility] providing Nursing, OT and PT. DME in the home: W/C, walker, ramp into house, commode, grab bars. DC plan is STR at a place other than [facility]. CM to follow and assist with DC plan.
[2023-12-19 16:34] LABS: Glucose, Whole Blood 189 mg/dL (60-115)
[2023-12-19] MEDS: Magnesium Oxide 400 MG TABLET PO (21:06)
[2023-12-19] MEDS: LORazepam 1 MG TABLET PO (21:06)
[2023-12-19 21:48] LABS: Glucose, Whole Blood 195 mg/dL (60-115)
[2023-12-19] MEDS: Nystatin Powder 15 GM BOTTLE 1 APPL TOPICAL (22:13)
[2023-12-20] VITALS (8 sets, daily range): BP systolic 123–144; BP diastolic 58–72; PULSE 67–83; RESP 18–20; TEMP 36.3–36.6; O2SAT 94–98
[2023-12-20] MEDS: Melatonin 3 MG TABLET 6 MG PO ×2 (01:52→21:24)
[2023-12-20 07:06] LABS: Anion Gap 15 (12-20); Blood Urea Nitrogen 34 mg/dL (9-16); Carbon Dioxide 28 mmol/L (22-29); Chloride 103 mmol/L (96-108); Creatinine Clr Calc Pharmacy 28.9; Estimated Glomerular Filt Rate 30; Glucose Random 132 mg/dL (60-115); Potassium 3.1 mmol/L (3.3-5.1); Sodium 143 mmol/L (135-145)
[2023-12-20 07:14] LABS: B Type Natriuretic Peptide 99 pg/mL (<100)
[2023-12-20 07:49] LABS: Glucose, Whole Blood 144 mg/dL (60-115)
[2023-12-20] MEDS: 0.9 % Sodium Chloride Flush 3 ML SYRINGE IVFLUSH ×3 (09:26→21:42)
[2023-12-20] MEDS: Furosemide 40 MG/4 ML VIAL IVPUSH (09:27)
[2023-12-20] MEDS: Potassium Chloride ER 20 MEQ TAB.ER.PRT 40 MEQ PO (09:27)
[2023-12-20] MEDS: hydrALAZINE HCl 25 MG TABLET PO ×2 (09:27→21:16)
[2023-12-20] MEDS: Insulin Glargine,Hum.rec.anlog 100 UNIT/ML 10 ML VIAL 12 UNIT SUBCUT (09:27)
[2023-12-20] MEDS: Fenofibrate 160 MG TABLET PO (09:28)
[2023-12-20] MEDS: Omeprazole 20 MG CAPSULE.DR PO (09:28)
[2023-12-20] MEDS: dilTIAZem HCL CD 120 MG CAP.ER.DEG PO (09:28)
[2023-12-20] MEDS: Magnesium Oxide 400 MG TABLET PO ×2 (09:28→21:23)
[2023-12-20] MEDS: Apixaban 2.5 MG TABLET PO ×2 (09:28→21:22)
[2023-12-20] MEDS: allopurinoL 100 MG TABLET PO (09:28)
--- NOTE | 2023-12-20 10:02 | HO.WOUND ---
Wound Consult: Initial 88yr old Female admitted to [facility] on 12/17 - See progress notes and H&P for detailed history.? Wound consult placed for Right Lower Anterior Leg - chronic wound.? Patient agreeable to assessment and photo documentation.? 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 Right Leg Right Leg wound Etiology: ?Abrasion - Chronic ?Present on Admission Measurements: see charting for detailed measurements Wound Bed: partial thickness tissue loss red moist tissue clean no evidence of infection Drainage / Odor: None noted Edges: ? irregular Catherine wound: ?Dry epidermal layer noted - No Induration, Fluctuance or Warmth noted Pain: denies pain at this time Goals of Treatment: ? Moist wound healing with xeroform Of note patient was incontinent of stool while at the bedside - incontinence care provided - sacrum was noted for redness - the area remains intact and blanchable throughout however given her immobility she is at risk for pressure injury development all preventative measures should be employed as highlighted below. Sacral foam dressing applied to aid in pressure re-distribution. Recommendations: 1. Turn and Reposition every 2 hours and as needed for patient comfort.? Use pillows or wedges to support off loading positions. 2. Off Load all bony prominences with use of pillows and heel boots if needed.? Apply Preventative foams where needed. ? 3. Monitor for incontinence and moisture control, use barrier creams when needed for prevention and treatment. 4. Provide adequate and supplemental nutrition.? 5. Order low air loss mattress. 6. Maintain blood glucose levels per Providers order. 7. Sacrum - Off Load Pressure - Apply sacral foam dressing - peel back and assess Q shirt - Change every 3 days and PRN. 8. Left Rosales - Cleanse with wound wash moist gauze, pat dry. Apply vaseline to lower leg cover open wound with xeroform, ABD pad and gauze wrap. Change Daily. Re-consult wound care Nurse for wound deterioration or wound changes.
--- NOTE | 2023-12-20 11:26 | MHC.CM.PN ---
CM spoke with Son/HCP/Matt @ [phone]. CM awaits PT eval; Goal is STR but not back to [facility] SNF. With Patient/Son's permission, CM has made referrals to additional SNF's and CM will follow.
[2023-12-20 11:29] LABS: Glucose, Whole Blood 260 mg/dL (60-115)
[2023-12-20] MEDS: Insulin Lispro 100 UNIT/ML 3 ML VIAL SUBCUT ×3 (11:50→21:41)
[2023-12-20] MEDS: Epoetin Alfa-epbx 10,000 UNIT/ML VIAL 10000 UNIT SUBCUT (13:18)
--- NOTE | 2023-12-20 13:18 | MHC.CM.PN ---
There are 3 new SNF bed offers ([facility], [facility] and [facility]); CM awaits PT eval that all 3 SNFs are requesting. is aware and CM will follow.
[2023-12-20 15:35] LABS: Glucose, Whole Blood 189 mg/dL (60-115)
--- NOTE | 2023-12-20 15:55 | P.PNIM_ITS ---
Subjective Subjective Date of Service: 12/21/23 Interval History: Patient is a poor historian, Complaining of shortness of breath, denies PND, no orthopnea, no chest pain, no palpitations, no acute issues overnight received IV Lasix 40 mg, tolerating diet with no nausea, no vomiting, no abdominal pain. Review of Systems All other system reviewed and negative Physical Exam 2 Vital Signs: Vital Signs: Last Vital Signs Temp 97.6 F 12/20/23 15:19 Pulse 79 12/20/23 15:19 Resp 18 12/20/23 15:19 BP 141/62 H 12/20/23 15:19 Pulse Ox 96 12/20/23 15:19 O2 Del Method Room Air 12/20/23 15:19 O2 Flow Rate 1 12/20/23 07:31 BMI result Body Mass Index 43.0 Const: Other: General awake alert, resting comfortably in no acute distress. Anicteric sclera Neck supple no JVD. CVS regular rate rhythm, Respiratory lungs clear to auscultation, bibasilar crackles, no respiratory distress, no wheeze, no rhonchi. Gastrointestinal abdomen soft, non tender, bowel sounds audible, no guarding , no rigidity. Extremities right lower extremity in cast/left lower extremity superficial abrasion, no pitting edema Neuro moving all 4 extremity, speech clear. Psych appropriate affect Objective Data Active Medications Acetaminophen (Acetaminophen 325 Mg Tablet) 975 mg PO Q6H PRN PRN Reason: mild pain, headche or fever Allopurinol (Allopurinol 100 Mg Tablet) 100 mg PO DAILY [facility] Last Admin: 12/20/23 09:28 Dose: 100 mg Documented By: ROSEY Apixaban (Apixaban 2.5 Mg Tablet) 2.5 mg PO BID [facility] Last Admin: 12/20/23 09:28 Dose: 2.5 mg Documented By: ROSEY Diltiazem HCl (Diltiazem Hcl Cd 120 Mg Cap.Er.Deg) 120 mg PO DAILY [facility]; Protocol Last Admin: 12/20/23 09:28 Dose: 120 mg Documented By: ROSEY Fenofibrate (Fenofibrate 160 Mg Tablet) 160 mg PO DAILY [facility] Last Admin: 12/20/23 09:28 Dose: 160 mg Documented By: ROSEY Furosemide (Furosemide 40 Mg/4 Ml Vial) 40 mg IVPUSH DAILY [facility]; Protocol Last Admin: 12/20/23 09:27 Dose: 40 mg Documented By: ROSEY Glucose (Glucose Gel 15 Gm Gel..Gram.) 15 gm PO Q15M PRN; Protocol PRN Reason: per Hypoglycemia Standing Ord. Hydralazine HCl (Hydralazine Hcl 25 Mg Tablet) 25 mg PO BID [facility]; Protocol Last Admin: 12/20/23 09:27 Dose: 25 mg Documented By: ROSEY Dextrose (D10) 250 mls @ 750 mls/hr IV Q15M PRN; Protocol PRN Reason: per Hypoglycemia Standing Ord. Insulin Glargine (Insulin Glargine,Hum.Rec.Anlog 100 Unit/Ml 10 Ml Vial) 12 unit SUBCUT DAILY [facility] Last Admin: 12/20/23 09:27 Dose: 12 unit Documented By: ROSEY Insulin Human Lispro (Insulin Lispro 100 Unit/Ml 3 Ml Vial) 0 unit SUBCUT QIDACHS [facility]; Protocol Last Admin: 12/20/23 11:50 Dose: 6 unit Documented By: ROSEY Lorazepam (Lorazepam 1 Mg Tablet) 1 mg PO BID PRN PRN Reason: anxiety Last Admin: 12/19/23 21:06 Dose: 1 mg Documented By: MAGDALENA Magnesium Oxide (Magnesium Oxide 400 Mg Tablet) 400 mg PO BID [facility] Last Admin: 12/20/23 09:28 Dose: 400 mg Documented By: ROSEY Melatonin (Melatonin 3 Mg Tablet) 6 mg PO BEDTIME PRN PRN Reason: Insomnia Last Admin: 12/20/23 01:52 Dose: 6 mg Documented By: MAGDALENA Nystatin (Nystatin Powder 15 Gm Bottle) 1 appl TOPICAL TID [facility]; Protocol Last Admin: 12/20/23 14:55 Dose: Not Given Documented By: ROSEY Non-Admin Reason: Med Not Available Omeprazole (Omeprazole 20 Mg Mar.) 20 mg PO DAILY [facility] Last Admin: 12/20/23 09:28 Dose: 20 mg Documented By: ROSEY Sodium Chloride (0.9 % Sodium Chloride Flush 3 Ml Syringe) 3 ml IVFLUSH QSHIFT [facility] Last Admin: 12/20/23 15:50 Dose: 3 ml Documented By: JESSIE Brock 12/19/23 05:04 12/21/23 09:24 Labs: Laboratory Results - last 24 hr 12/19/23 12/19/23 12/20/23 16:28 21:44 06:05 Anion Gap 15 Estim Creat Clear Calc 28.9 Estimated GFR 30 POC Glucose 189 H 195 H Random Glucose 132 H Calcium 9.0 D B-Natriuretic Peptide 99 12/20/23 12/20/23 12/20/23 07:45 11:25 15:22 Anion Gap Estim Creat Clear Calc Estimated GFR POC Glucose 144 H 260 H 189 H Random Glucose Calcium B-Natriuretic Peptide Assessment and Plan (1) Osteomyelitis: Status: Acute Plan Susan Laurent is 88 year old woman admitted with shortness of breath worse with exertion, occasional cough, lower extremity edema and dizziness, no chest pain, no nausea no vomiting no abdominal pain, son noted intermittent lethargy and confusion. Mild acute CHF exacerbation with preserved EF Shortness of breath resolved, oxygenation stable 96% on room air on IV Lasix will place on home dose of Lasix 40 mg daily BNP improved from 222-99 Mild acute hypokalemia likely due to diuretics will replete and follow labs Mild hypernatremia. Resolved sodium improved to 143 Essential hypertension. Stable BP, Continue diltiazem and hydralazine. ? Atrial fibrillation. Continue Eliquis 2.5 mg PO bid and diltiazem for rate control. Chronic wound to the lower extremity. Seen by wound nurse noted to have chronic abrasion left leg seen by wound nurse will follow recommendation: Left Rosales - Cleanse with wound wash moist gauze, pat dry. Apply vaseline to lower leg cover open wound with xeroform, ABD pad and gauze wrap. Change Daily. For sacrum preventive measures recommended to avoid pressure injury with frequent position change, sacral foam dressing to be changed every 3 days and as needed. Type 2 diabetes mellitus. Stable blood sugars on Lantus 12 units and insulin sliding scale, on insulin 70/30 NPH currently on hold. Hyperlipidemia. Continue fenofibrate. GERD. Continue PPI. Gout. Continue allopurinol. CKD stage 3B. Creatinine at baseline. Chronic anemia. Getting Procrit injections as an outpatient. Continue to monitor H&H. Obesity class 3. BMI 43.0 kg/m2. Recent displaced bimalleolar fracture of right ankle Right leg splint in place. F/u as an outpatient by Ortho. History of osteomyelitis in the right foot s/p resection of the right 5th metatarsal. Vitamin-D deficiency. Vitamin-D 50,000 units every 14 days. DVT prophylaxis: Eliquis Code status: Full code Patient will need continued inpatient hospitalization for pulmonary edema , monitoring of respiratory status and PT eval for safe disposition Quality Stroke Does the patient have a stroke diagnosis?: No VTE Prior VTE?: No VTE Risk Level:: Medical - moderate - high VTE Device Contraindication: Treatment Not Indicated VTE Drug Contraindication: N/A - Med Ordered
[2023-12-20 21:25] LABS: Glucose, Whole Blood 203 mg/dL (60-115)
[2023-12-20] MEDS: Nystatin Powder 15 GM BOTTLE 1 APPL TOPICAL (21:43)
[2023-12-21] MEDS: Calcium Carbonate 750 MG TAB.CHEW PO (00:53)
[2023-12-21] MEDS: LORazepam 1 MG TABLET PO (00:58)
[2023-12-21 03:28] VITALS: BP 138/61; PULSE 87; RESP 18; TEMP 36.5; O2SAT 96
[2023-12-21 07:32] VITALS: BP 130/93; PULSE 81; RESP 20; TEMP 36.1; O2SAT 97
[2023-12-21 08:11] LABS: Glucose, Whole Blood 143 mg/dL (60-115)
[2023-12-21] MEDS: dilTIAZem HCL CD 120 MG CAP.ER.DEG PO (09:06)
[2023-12-21] MEDS: hydrALAZINE HCl 25 MG TABLET PO ×2 (09:06→21:51)
[2023-12-21] MEDS: allopurinoL 100 MG TABLET PO (09:06)
[2023-12-21] MEDS: Fenofibrate 160 MG TABLET PO (09:06)
[2023-12-21] MEDS: Omeprazole 20 MG CAPSULE.DR PO (09:06)
[2023-12-21] MEDS: Magnesium Oxide 400 MG TABLET PO ×2 (09:06→21:51)
[2023-12-21] MEDS: Apixaban 2.5 MG TABLET PO ×2 (09:06→21:51)
[2023-12-21] MEDS: 0.9 % Sodium Chloride Flush 3 ML SYRINGE IVFLUSH ×3 (09:06→21:53)
[2023-12-21] MEDS: Insulin Glargine,Hum.rec.anlog 100 UNIT/ML 10 ML VIAL 12 UNIT SUBCUT (09:07)
[2023-12-21] MEDS: Nystatin Powder 15 GM BOTTLE 1 APPL TOPICAL ×2 (09:08→17:39)
[2023-12-21 10:43] LABS: Anion Gap 17 (12-20); Blood Urea Nitrogen 35 mg/dL (9-16); Calcium 9.4 mg/dL (8.4-10.2); Carbon Dioxide 24 mmol/L (22-29); Chloride 105 mmol/L (96-108); Creatinine Clr Calc Pharmacy 30.4; Estimated Glomerular Filt Rate 32; Glucose Random 198 mg/dL (60-115); Potassium 4.3 mmol/L (3.3-5.1); Sodium 142 mmol/L (135-145)
--- NOTE | 2023-12-21 11:20 | MHC.CM.PN ---
[facility]Josef[facility] at 1:30pm. Pt and her son Matt are aware and in agreement.
[2023-12-21 11:27] VITALS: BP 127/62; PULSE 90; RESP 20; TEMP 36.7; O2SAT 95
[2023-12-21] MEDS: Furosemide 40 MG TABLET PO (11:27)
[2023-12-21 11:52] LABS: Glucose, Whole Blood 196 mg/dL (60-115)
[2023-12-21] MEDS: Insulin Lispro 100 UNIT/ML 3 ML VIAL SUBCUT ×3 (12:13→21:51)
[2023-12-21] MEDS: Furosemide 20 MG/2 ML VIAL IVPUSH (12:27)
--- NOTE | 2023-12-21 13:38 | MHC.CM.PN ---
Per hospitalist, pts discharge is on hold until chest x-ray obtained and results received.
--- NOTE | 2023-12-21 13:54 | PC.NURSE ---
pt reported that she has some problem breathing , she was pointing to her neck as an area of the problem . Pt sitting up ,no visual respiratory distress , no palpitation , HR 70's afib, oxygen saturation 96% on RA, Right mid and Right lower lobe fine crackles . Lasix 20 mg IV administered , Cxray done , DR Huerta assessed the pt at the bedside
--- NOTE | 2023-12-21 14:54 | HO.PM.IMPN ---
Subjective Subjective Date of Service: 12/21/23 Interval History: Patient this morning was feeling better denied shortness of breath, therefore was scheduled to be discharged but later complain of shortness of breath pointed to her throat, patient is vague historian, Complaining of intermittent PND,orthopnea, no palpitations. Review of Systems All other system reviewed and negative. Physical Exam Vital Signs: Vital Signs: Last Vital Signs Temp 98.0 F 12/21/23 11:27 Pulse 90 12/21/23 11:27 Resp 20 12/21/23 11:27 BP 127/62 12/21/23 11:27 Pulse Ox 95 12/21/23 11:27 O2 Del Method Room Air 12/21/23 11:27 O2 Flow Rate 1 12/21/23 07:32 BMI result Body Mass Index 43.0 Const: Other: General awake alert, resting comfortably in no acute distress. Anicteric sclera Neck supple no JVD. CVS regular rate rhythm, Respiratory lungs bibasilar crackles, no respiratory distress, no wheeze, no rhonchi. Gastrointestinal abdomen soft, non tender, bowel sounds audible, no guarding , no rigidity. Extremities right lower extremity in cast/left lower extremity superficial abrasion, no pitting edema Neuro moving all 4 extremity, speech clear. Psych appropriate affect Objective Data Active Medications Acetaminophen (Acetaminophen 325 Mg Tablet) 975 mg PO Q6H PRN PRN Reason: mild pain, headche or fever Allopurinol (Allopurinol 100 Mg Tablet) 100 mg PO DAILY [facility] Last Admin: 12/21/23 09:06 Dose: 100 mg Documented By: JESSIE Apixaban (Apixaban 2.5 Mg Tablet) 2.5 mg PO BID [facility] Last Admin: 12/21/23 09:06 Dose: 2.5 mg Documented By: JESSIE Diltiazem HCl (Diltiazem Hcl Cd 120 Mg Cap.Er.Deg) 120 mg PO DAILY [facility]; Protocol Last Admin: 12/21/23 09:06 Dose: 120 mg Documented By: JESSIE Fenofibrate (Fenofibrate 160 Mg Tablet) 160 mg PO DAILY [facility] Last Admin: 12/21/23 09:06 Dose: 160 mg Documented By: JESSIE Furosemide (Furosemide 40 Mg Tablet) 40 mg PO DAILY [facility]; Protocol Last Admin: 12/21/23 11:27 Dose: 40 mg Documented By: JESSIE Glucose (Glucose Gel 15 Gm Gel..Gram.) 15 gm PO Q15M PRN; Protocol PRN Reason: per Hypoglycemia Standing Ord. Hydralazine HCl (Hydralazine Hcl 25 Mg Tablet) 25 mg PO BID [facility]; Protocol Last Admin: 12/21/23 09:06 Dose: 25 mg Documented By: JESSIE Dextrose (D10) 250 mls @ 750 mls/hr IV Q15M PRN; Protocol PRN Reason: per Hypoglycemia Standing Ord. Insulin Glargine (Insulin Glargine,Hum.Rec.Anlog 100 Unit/Ml 10 Ml Vial) 12 unit SUBCUT DAILY [facility] Last Admin: 12/21/23 09:07 Dose: 12 unit Documented By: JESSIE Insulin Human Lispro (Insulin Lispro 100 Unit/Ml 3 Ml Vial) 0 unit SUBCUT QIDACHS [facility]; Protocol Last Admin: 12/21/23 12:13 Dose: 2 unit Documented By: JESSIE Lorazepam (Lorazepam 1 Mg Tablet) 1 mg PO BID PRN PRN Reason: anxiety Last Admin: 12/21/23 00:58 Dose: 1 mg Documented By: MAGDALENO Magnesium Oxide (Magnesium Oxide 400 Mg Tablet) 400 mg PO BID [facility] Last Admin: 12/21/23 09:06 Dose: 400 mg Documented By: JESSIE Melatonin (Melatonin 3 Mg Tablet) 6 mg PO BEDTIME PRN PRN Reason: Insomnia Last Admin: 12/20/23 21:24 Dose: 6 mg Documented By: MAGDALENO Nystatin (Nystatin Powder 15 Gm Bottle) 1 appl TOPICAL TID [facility]; Protocol Last Admin: 12/21/23 09:08 Dose: 1 appl Documented By: JESSIE Omeprazole (Omeprazole 20 Mg Capsule.) 20 mg PO DAILY [facility] Last Admin: 12/21/23 09:06 Dose: 20 mg Documented By: JESSIE Sodium Chloride (0.9 % Sodium Chloride Flush 3 Ml Syringe) 3 ml IVFLUSH QSHIFT [facility] Last Admin: 12/21/23 09:06 Dose: 3 ml Documented By: JESSIE Labs 12/19/23 05:04 12/21/23 09:24 Labs: Laboratory Results - last 24 hr 12/20/23 12/20/23 12/21/23 15:22 20:54 07:35 Anion Gap Estim Creat Clear Calc Estimated GFR POC Glucose 189 H 203 H 143 H Random Glucose Calcium 12/21/23 12/21/23 09:24 11:27 Anion Gap 17 Estim Creat Clear Calc 30.4 Estimated GFR 32 POC Glucose 196 H Random Glucose 198 H Calcium 9.4 Assessment and Plan (1) Osteomyelitis: Status: Acute Plan Susan Laurent is 88 year old woman admitted with shortness of breath worse with exertion, occasional cough, lower extremity edema and dizziness, no chest pain, no nausea no vomiting no abdominal pain, son noted intermittent lethargy and confusion. Mild acute CHF exacerbation with preserved EF Complaining of intermittent shortness of breath noted to have bibasilar crackles will treat with IV Lasix monitor I's and O's /repeat chest x-ray BNP improved from 222-99 Mild acute hypokalemia repleted and normalized Mild hypernatremia. Resolved sodium improved to 143 Essential hypertension. Stable BP, Continue diltiazem and hydralazine. Paroxysmal Atrial fibrillation. Continue Eliquis 2.5 mg PO bid and diltiazem for rate control. Chronic wound to the lower extremity. Seen by wound nurse noted to have chronic abrasion left leg seen by wound nurse will follow recommendation: Left Rosales - Cleanse with wound wash moist gauze, pat dry. Apply vaseline to lower leg cover open wound with xeroform, ABD pad and gauze wrap. Change Daily. For sacrum preventive measures recommended to avoid pressure injury with frequent position change, sacral foam dressing to be changed every 3 days and as needed. Type 2 diabetes mellitus. Continue Lantus and insulin sliding scale monitor blood sugars Hyperlipidemia. Continue fenofibrate. GERD. Continue PPI. Gout. Continue allopurinol. CKD stage 3B. Creatinine at baseline. Chronic anemia. Getting Procrit injections as an outpatient. Continue to monitor H&H. Obesity class 3. BMI 43.0 kg/m2. Recent displaced bimalleolar fracture of right ankle Right leg splint in place. F/u as an outpatient by Ortho. History of osteomyelitis in the right foot s/p resection of the right 5th metatarsal. Vitamin-D deficiency. Vitamin-D 50,000 units every 14 days. DVT prophylaxis: Eliquis Code status: Full code Patient will need continued inpatient hospitalization for pulmonary edema , requiring IV Lasix, monitoring of respiratory status and PT eval for safe disposition Quality Stroke Does the patient have a stroke diagnosis?: No VTE Prior VTE?: No VTE Risk Level:: Medical - moderate - high VTE Device Contraindication: Treatment Not Indicated VTE Drug Contraindication: N/A - Med Ordered
[2023-12-21 15:16] VITALS: BP 158/74; PULSE 71; RESP 20; TEMP 36.6; O2SAT 97
[2023-12-21 16:17] LABS: Glucose, Whole Blood 157 mg/dL (60-115)
[2023-12-21] MEDS: Potassium Chloride ER 20 MEQ TAB.ER.PRT PO (17:27)
[2023-12-21 19:50] VITALS: BP 147/63; PULSE 80; RESP 20; TEMP 36.7; O2SAT 99
[2023-12-21 20:40] LABS: Glucose, Whole Blood 209 mg/dL (60-115)
[2023-12-21 21:51] VITALS: BP 114/56
[2023-12-22] VITALS: BP 142/64; PULSE 80; RESP 20; TEMP 36.6; O2SAT 97
[2023-12-22 04:00] VITALS: BP 165/74; PULSE 83; RESP 19; TEMP 36.3; O2SAT 93
[2023-12-22 07:55] LABS: Blood Urea Nitrogen 35 mg/dL (9-16); Calcium 9.3 mg/dL (8.4-10.2); Creatinine Clr Calc Pharmacy 28.1; Estimated Glomerular Filt Rate 29; Glucose Random 139 mg/dL (60-115)
[2023-12-22 08:00] VITALS: BP 155/69; PULSE 80; RESP 18; TEMP 36.8; O2SAT 96
[2023-12-22 08:09] LABS: Anion Gap 14 (12-20); Carbon Dioxide 31 mmol/L (22-29); Chloride 102 mmol/L (96-108); Potassium 3.3 mmol/L (3.3-5.1); Sodium 144 mmol/L (135-145)
[2023-12-22 08:22] LABS: Glucose, Whole Blood 149 mg/dL (60-115)
[2023-12-22 08:34] VITALS: BP 165/74
[2023-12-22] MEDS: Apixaban 2.5 MG TABLET PO (08:34)
[2023-12-22] MEDS: Fenofibrate 160 MG TABLET PO (08:34)
[2023-12-22] MEDS: Furosemide 40 MG TABLET PO (08:34)
[2023-12-22] MEDS: Magnesium Oxide 400 MG TABLET PO (08:34)
[2023-12-22] MEDS: hydrALAZINE HCl 25 MG TABLET PO (08:34)
[2023-12-22] MEDS: Omeprazole 20 MG CAPSULE.DR PO (08:34)
[2023-12-22 08:35] VITALS: BP 165/74; PULSE 83
[2023-12-22] MEDS: allopurinoL 100 MG TABLET PO (08:35)
[2023-12-22] MEDS: dilTIAZem HCL CD 120 MG CAP.ER.DEG PO (08:35)
[2023-12-22] MEDS: Potassium Chloride ER 20 MEQ TAB.ER.PRT PO ×2 (08:37→09:54)
[2023-12-22] MEDS: 0.9 % Sodium Chloride Flush 3 ML SYRINGE IVFLUSH (08:37)
[2023-12-22] MEDS: Insulin Glargine,Hum.rec.anlog 100 UNIT/ML 10 ML VIAL 12 UNIT SUBCUT (08:37)
--- NOTE | 2023-12-22 09:30 | MHC.CM.PN ---
Second IMM given 12/21. Pt is medically [facility]Jose[facility] at 1:30pm. Pt and son aware in agreement with discharge plan.
[2023-12-22] MEDS: Nystatin Powder 15 GM BOTTLE 1 APPL TOPICAL (09:55)
--- NOTE | 2023-12-22 10:51 | PM.DS ---
DS: Providers Provider Date of Service: 12/22/23 Date of admission: 12/18/23 23:42 Primary care physician: Unknown Physician Consults: 12/19/23 04:54 Consult to Wound Care Routine Reason for consultation: Wounds to the lower extremity DS: Diagnosis Discharge Diagnosis (1) Osteomyelitis: Status: Acute DS: Summary Hospital Course Hospital Course: History of presenting illness: Date of Service: 12/18/23 Attending physician on admission: Guzman Angel Chief Complaint: Shortness on breath Susan Laurent is 88 year old woman with past medical history remarkable for essential hypertension, type 2 diabetes mellitus on insulin, gout, recent displaced bimalleolar fracture of right ankle with ankle mortise disruption, osteomyelitis in the right foot s/p resection of the right 5th metatarsal, GERD, CKD stage 3 (baseline creatinine 1.85), ?atrial fibrillation on Eliquis, chronic anemia on Procrit as an outpatient, hyperlipidemia and obesity was brought to the emergency department from [facility] complaining of worsening shortness of breath over the last several weeks and occasional cough. Shortness O was worse on exertion Her son who was at also noted that she has been lethargic at times and confused. Patient also reported dizziness and edema to the lower extremities. The patient denied any headache, chest pain or palpitations. Denies acute abdominal pain, vomiting, nausea or diarrhea. She did have chronic wound to the lower extremities. Chart review: Patient was discharged from [facility] on December [address] [facility]. She was evaluated there for right ankle swelling and inability to ambulate. During the hospitalization her Lasix was increased from 20 mg to 40 mg PO daily. The patient's son was at bedside and was constantly expressing his frustrations. He feels that his mother has not have the best at [facility] rehab sent. In the ED, she was found to have stable vital signs except for some tachypnea. Her oxygen saturation is normal on room air. Blood workup showed no leukocytosis. Hemoglobin is at baseline. There is no thrombocytopenia. Venous gas showed mild metabolic alkalosis. CO2 is 52. BNP is 222 and troponin 31.3 Viral testing is negative for influenza, RSV and COVID-19. CXR showed pulmonary edema with small pleural effusions. Hospital course: Susan Laurent is 88 year old woman admitted with shortness of breath worse with exertion, occasional cough, lower extremity edema and dizziness, no chest pain, no nausea no vomiting no abdominal pain, son noted intermittent lethargy and confusion, workup in the ED suggestive of mild acute CHF exertion and treated for following. Mild acute CHF exacerbation with preserved EF patient admitted to telemetry unit treated with IV Lasix with good response, BNP improved from 222-99, patient on lung examination has bilateral crackles likely due to atelectasis/scarring as noted on CT chest July 2023, recommend Lasix 40 mg by mouth daily and potassium 20 mEq daily. Mild acute hypokalemia repleted and normalized Mild hypernatremia. Resolved sodium normalized. Essential hypertension. Stable BP, Continue diltiazem and hydralazine. Paroxysmal Atrial fibrillation. Now in normal sinus rhythm, Continue Eliquis 2.5 mg PO bid and diltiazem for rate control. Chronic wound to the lower extremity. Seen by wound nurse noted to have chronic abrasion left leg seen by wound nurse follow recommendation: Left Rosales - Cleanse with wound wash moist gauze, pat dry. Apply vaseline to lower leg cover open wound with xeroform, ABD pad and gauze wrap. Change Daily. For sacrum preventive measures recommended to avoid pressure injury with frequent position change, sacral foam dressing to be changed every 3 days and as needed. Type 2 diabetes mellitus. Continue Lantus and insulin sliding scale monitor blood sugars Hyperlipidemia. Continue fenofibrate. GERD. Continue PPI. Gout. Continue allopurinol. CKD stage 3B. Creatinine at baseline. Chronic anemia. on Procrit injections as an outpatient. Obesity class 3. BMI 43.0 kg/m2. Recommend low-calorie diet. Recent displaced bimalleolar fracture of right ankle Right leg splint in place. F/u as an outpatient by Ortho. History of osteomyelitis in the right foot s/p resection of the right 5th metatarsal. Vitamin-D deficiency. Vitamin-D 50,000 units every 14 days. Time Attestation Discharge Coordination Time (in mins): 38 Quality: Safe Use of Opioids Does Pt have an Active Cancer Diagnosis on the Problem List?: No Quality: Stroke Does the patient have a stroke diagnosis?: No Physical Exam Vital Signs: Vital Signs: Last Vital Signs Temp 98.3 F 12/22/23 08:00 Pulse 83 12/22/23 08:35 Resp 18 12/22/23 08:00 BP 165/74 H 12/22/23 08:35 Pulse Ox 96 12/22/23 08:00 O2 Del Method Room Air 12/22/23 08:00 O2 Flow Rate 1 12/21/23 07:32 BMI result Body Mass Index 43.0 Const: Other: General awake alert, resting comfortably in no acute distress. Anicteric sclera Neck supple,no JVD. CVS regular rate rhythm, Respiratory lungs bi basilar crackles, no respiratory distress, no wheeze, no rhonchi. Gastrointestinal abdomen soft, non tender, bowel sounds audible, no guarding , no rigidity. Extremities right lower extremity in cast/left lower extremity superficial abrasion, no pitting edema Neuro moving all 4 extremity, speech clear. Psych appropriate affect DS: Data Data Completed and Pending Completed studies during hospitalization [Text1]: Procedures Insertion of Infusion Device into Superior Vena Cava, Percutaneous Approach (03/23/23) Ultrasonography of Superior Vena Cava, Guidance (03/23/23) Labs on day of discharge: Laboratory Results - last 24 hr 12/21/23 12/21/23 12/21/23 11:27 16:03 20:37 Hold Purple Top Sodium Potassium Chloride Carbon Dioxide Anion Gap BUN Creatinine Estim Creat Clear Calc Estimated GFR POC Glucose 196 H 157 H 209 H Random Glucose Calcium 12/22/23 12/22/23 06:32 08:18 Hold Purple Top SEE NOTE Sodium 144 Potassium 3.3 D Chloride 102 Carbon Dioxide 31 H Anion Gap 14 BUN 35 H Creatinine 1.65 H Estim Creat Clear Calc 28.1 Estimated GFR 29 POC Glucose 149 H Random Glucose 139 H Calcium 9.3 Discharge Plan Discharge Anticipated Discharge Date/Time: 12/22/23 10:22 Patient Disposition: Xfer SNF Discharge Diagnosis: Acute CHF exacerbation with preserved EF Referrals: [facility] [Outside] - 1 Week Physician,Unknown J [Primary Care Provider] - 1 Week Discharge Medications: New potassium chloride 20 mEq Tablet,Er Particles/Crystals 20 meq PO DAILY Qty: 30 0RF Continued allopurinol 100 mg tablet 100 mg PO DAILY Qty: 90 7RF (DME) Wheel chair Kit See Rx Instructions .Route Qty: 1 0RF Rx Instructions: As directed fenofibrate 160 mg tablet 160 mg PO DAILY Qty: 90 8RF (DME) diabetic supplies, miscellan. Misc See Rx Instructions .ROUTE .MEDSUPPLY Qty: 1 2RF Rx Instructions: DIABETIC SHOES WITH 3 INSERTS hydralazine 25 mg tablet 25 mg PO BID 90 Days Qty: 180 8RF lorazepam 1 mg tablet 1 mg PO BID PRN (Reason: anxiety) Qty: 60 0RF (DME) Accu-Chek Radha Plus test strp Strip See Rx Instructions .ROUTE .COMPLEX Qty: 300 0RF Dose Instruction: USE DIRECTED TO TEST BLOOD SUAGR THREE TIMES DAILY Rx Instructions: USE DIRECTED TO TEST BLOOD SUAGR THREE TIMES DAILY ([facility] [place]) lancets [Microlet Lancet] [facility] [place] See Rx Instructions .ROUTE .COMPLEX Qty: 100 3RF Dose Instruction: USE DIRECTED TO CHECK BLOOD GLUCOSE THREE TIMES DAILY Rx Instructions: USE DIRECTED TO CHECK BLOOD GLUCOSE THREE TIMES DAILY insulin NPH and regular human 100 unit/mL (70-30) suspension 20 unit subcut BID@0800,2000 ([facility] [place]) off loading boot Kit See Rx Instructions .Route Qty: 1 0RF Rx Instructions: As directed omeprazole 20 mg capsule,delayed release(DR/EC) 20 mg PO DAILY@0630 furosemide 20 mg tablet 40 mg PO DAILY ammonium lactate 12 % Lotion 1 appl TOPICAL .QOD PRN (Reason: Dry Skin) acetaminophen 500 mg Tablet 500 mg PO Q4H PRN (Reason: Moderate Pain (Scale Score 5-6)) ascorbic acid (vitamin C) 500 mg Tablet,Chewable 500 mg PO DAILY calcium carbonate [Tums 500] 500 mg calcium (1,250 mg) Tablet,Chewable 500 mg PO BID PRN (Reason: Heartburn) zinc sulfate 220 mg Capsule 220 mg PO DAILY magnesium oxide 400 mg magnesium Tablet 400 mg PO BID (DME) Ultra-Light Rollator Misc See Rx Instructions .Route Qty: 1 0RF Rx Instructions: To use daily ergocalciferol (vitamin D2) 1,250 mcg (50,000 unit) capsule 1,250 mcg PO Q14D Rx Instructions: GIVEN EVERY OTHER WEDNESDAY ([facility] [place]) Wheel chair Kit See Rx Instructions .Route Qty: 1 0RF Rx Instructions: As directed nystatin 100,000 unit/gram powder 1 appl topical TID Qty: 30 1RF diltiazem HCl [Cardizem CD] 120 mg capsule,extended release 24hr 120 mg PO DAILY Qty: 30 5RF Eliquis 2.5 mg tablet 2.5 mg PO BID Qty: 60 5RF Discharge Orders: Discharge Order (Routine); Ordered 12/22/23 Ordered By: Karthik Huerta Diet: Low-salt diet Activity on Discharge: As tolerated Stand Alone Forms: Patient Portal Discharge page Print Language: Israeli Care Plan Goals: Acute mild congestive heart failure resolved continue Lasix 40 mg daily and potassium supplement, follow low-salt diet Follow BMP in 1 week Chronic kidney disease stage IIIB stable Follow diabetic diet Health Concerns: Diabetes mellitus/atrial fibrillation/hypertension/CHF Plan of Treatment: Outpatient follow-up with primary care physician Outpatient follow-up with Orthopedic surgery as previously planned Assessment: As above
[2023-12-22 11:52] VITALS: BP 144/62; PULSE 82; RESP 20; TEMP 36.3; O2SAT 99
[2023-12-22] MEDS: Insulin Lispro 100 UNIT/ML 3 ML VIAL SUBCUT (12:09)
== END 2023-12-22 13:43 | disposition skilled nursing facility (03) | DRG 291 ==
LOC: HO.ED 23:33 → HO.EDOVER 12-19 00:38 → HO.IMC 12-19 07:38
PROVIDERS: Physician Assistant Medical; Student in an Organized Health Care Education/Training Program; Admitting Provider Internal Medicine; Emergency Provider Internal Medicine; Visit Provider Hospitalist
DX: I13.0 Hypertensive heart and chronic kidney disease with heart failure and stage 1 through stage 4 chronic kidney disease, or unspecified chronic kidney disease (principal); I50.23 Acute on chronic systolic (congestive) heart failure; Z68.41 Body mass index [BMI] 40.0-44.9, adult; E87.0 Hyperosmolality and hypernatremia; M10.9 Gout, unspecified; K21.9 Gastro-esophageal reflux disease without esophagitis; E87.6 Hypokalemia; E55.9 Vitamin D deficiency, unspecified; E78.5 Hyperlipidemia, unspecified; S80.812S Abrasion, left lower leg, sequela; X58.XXXS Exposure to other specified factors, sequela; E66.01 Morbid (severe) obesity due to excess calories; I48.0 Paroxysmal atrial fibrillation; N18.32 Chronic kidney disease, stage 3b; E11.22 Type 2 diabetes mellitus with diabetic chronic kidney disease; D63.1 Anemia in chronic kidney disease; Z20.822 Contact with and (suspected) exposure to COVID-19; Z79.4 Long term (current) use of insulin; Z79.01 Long term (current) use of anticoagulants; Z79.899 Other long term (current) drug therapy
CPT/HCPCS: 0241U; 36415; 71045; 80048; 80053; 82803; 82947; 83735; 83880; 84484; 85025; 85610; 85730; 93005; 97162; 99285; J1940; Q5106

== ENCOUNTER → 2023-12-18 20:13 | Outpatient (BNV) | payer MEDICARE, SELFPAY | PROVIDERS: Admitting Provider Internal Medicine; Emergency Provider Internal Medicine; Visit Provider Internal Medicine Cardiovascular Disease | DX: I48.91 Unspecified atrial fibrillation (principal) | CPT/HCPCS: 93010 ==

== ENCOUNTER → 2023-12-18 23:42 | Outpatient (BNV) | payer MEDICARE, SELFPAY | PROVIDERS: Admitting Provider Internal Medicine; Emergency Provider Internal Medicine; Visit Provider Internal Medicine | DX: M86.9 Osteomyelitis, unspecified (principal) | CPT/HCPCS: 99223; 99233; 99239; 99499 ==

== ENCOUNTER → 2023-12-24 12:45 | Outpatient (REF) | payer MEDICARE, SELFPAY ==
--- NOTE | 2023-12-24 12:53 | HM_ITS ---
* Total monitoring time 3 days. * Underlying rhythm is atrial fibrillation with an average ventricular rate of 76/Min. * Frequent PVCs with a burden of 2.4%. Multiple morphologies. Mostly isolated. Some couplets, triplets, bigeminy, trigeminy. 3 brief runs. Longest 5 beats. * No significant pauses or AV blocks. * No patient markers or diary events. MTDD
--- NOTE | 2023-12-24 12:53 | CA_ITS ---
Transthoracic Echocardiogram Patient (Last, First, Middle): Susan Laurent M Gender: Female Date of : 1935 Age: 88 Procedure Date: 12/24/2023 Procedure Type: Transthoracic Echocardiogram Location: OP Height: 165.1 cm Weight: 102.06 kg BSA: 2.08 m2 Heart Rate: 85 bpm BP: 132 / 80 mmHg Automatic Log Cut Off Sawyer: RAFAELA Referring MD: Rudi Sethi MD Symptoms: I48.91 - Unspecified atrial fibrillation Study Quality: Fair ECG Rhythm: Atrial Fibrillation Conclusions: - The left ventricular systolic function is mildly decreased. The visually estimated ejection fraction is between 45-50%. - Possible basal inferior hypokinesis. - No obvious valvular pathology seen on this study. Findings Left Ventricle Normal left ventricular cavity size. There is mildly increased left ventricular wall thickness. The left ventricular systolic function is mildly decreased. The visually estimated ejection fraction is between 45-50%. Diastolic function is indeterminate on the basis of available data. Possible basal inferior hypokinesis. Right Ventricle Mildly increased right ventricular cavity size. There is mildly decreased right ventricular systolic function. Atria The left atrium is mildly dilated. The right atrium is normal in size. Aortic Valve There is mild calcification of the aortic valve. There is no aortic valve stenosis. There is no aortic valve regurgitation. Mitral Valve There is mild mitral annular calcification. There is mild mitral valve regurgitation. There is no mitral valve stenosis. Pulmonic Valve The pulmonic valve is likely normal. Tricuspid Valve Normal tricuspid valve structure. There is mild tricuspid valve regurgitation. There is no evidence of pulmonary hypertension. Great Vessels The asc aorta is normal in size. Venous The inferior vena cava is normal in size and collapses greater than 50% with inspiration. Pericardium/Pleural There is no evidence of pericardial effusion. Prior Study Comparison Changes noted compared to prior study dated: 05/21/2021. LVEF diminished. Recommendations, Care & Conclusions No obvious valvular pathology seen on this study. Measurements 2D Linear Measurements IVSd: 1.24 0.6-0.9/0.6-1.0 cm LVIDd: 4.51 3.9-5.3/4.2-5.9 cm LVIDd Index: 2.17 2.4-3.2/2.2-3.1 cm/m2 LVIDs: 3.50 2.0-3.6 cm LVPWd: 1.20 0.7-1.1 cm LA Diam: 4.40 2.7-3.8/3.0-4.0 cm LAIDs Index: 2.12 1.5-2.3 cm/m2 LV Mass: 253.73 67-162/88-224 g LV Mass Index: 121.98 43-95/49-115 g/m2 LVOT Diam: 2.00 3.0+(-)1.3 cm 2D Systolic Function EF 4C: 44.90 >55% EF 2C: 51.00 >55% EF BiP: 48.10 >55% Mitral Valve MV VTI: 0.34 MV Pk Norm: 1.47 MV Mn Norm: 0.86 MV Pk Grad: 9.00 MV Mn Grad: 3.00 MV Pk E: 1.20 MV Decel Time: 287.00 E'Lateral: 8.19 E'Medial: 5.29 E/E' Med: 22.70 E/E' Lat: 14.70 PHT: 84.00 MVA PHT: 2.62 MVA Continuity: 1.86 Decel [place]: 4.18 Aortic Valve AoV Pk Norm: 1.36 AoV Mn Norm: 1.03 AoV VTI: 0.29 AoV Pk Grad: 7.00 Aov Mn Grad: 5.00 ROSELYN Cont.VTI: 2.14 LVOT LVOT Pk Norm: 0.95 LVOT Mn Norm: 0.67 LVOT VTI: 0.20 LVOT Pk Grad: 4.00 LVOT Mn Grad: 2.00 LVOT Diam: 2.00 LVOT Area: 3.14 Diastolic Function MV Pk E: 1.20 E'Medial: 5.29 E/E' Med: 22.70 E' Laterial: 8.19 E/E' Lat: 14.70 Right Ventricle TAPSE (mm): 15.10 TVS' Norm: 7.80 Tricuspid Valve TR Pk Norm: 2.63 TR Pk Grad: 28.00 RA Press: 3.00 RVSP: 31.00 Great Vessels Aorta Sinus of Valsalva: 3.30 2.0-3.5 cm Ao Asc: 3.20 2.1-3.4 cm Pulmonary Valve PV Pk Norm: 1.11 Peak PV Grad: 5.00 Updated in Other Vendor System with Status of Final Jonathon Andrews MD electronically signed on 12/26/2023 11:56:03 AM with status of Final
== END ==
LOC: HO.CARD 12:45
PROVIDERS: PCP Internal Medicine; Visit Provider Internal Medicine Cardiovascular Disease
DX: I48.91 Unspecified atrial fibrillation (principal)
CPT/HCPCS: 93242; 93306

== ENCOUNTER → 2023-12-24 12:53 | Outpatient (BNV) | payer MEDICARE, SELFPAY | PROVIDERS: PCP Internal Medicine; Visit Provider Internal Medicine | DX: I48.91 Unspecified atrial fibrillation (principal); I49.3 Ventricular premature depolarization | CPT/HCPCS: 93244; 93306 ==

== ENCOUNTER 2023-12-31 13:16 | Outpatient (AMB) | payer MEDICARE, SELFPAY ==
[2023-12-31 13:45] VITALS: BP 114/62; PULSE 78
--- NOTE | 2023-12-31 13:45 | MHC.OFFVIS ---
Vital Signs 12/31/23 13:45 Height 5 ft 3 in BP 114/62 Blood Pressure Location Rt brachial Position Sitting Pulse 78 Intake Visit Reasons: follow-up after holter and echo Elevator Builder Required: No Vacuum Metalizer Operator: Vacuum Metalizer Operator Present Allergies codeine [CODEINE] Allergy (Intermediate, Verified 12/31/23 13:48) BACK PAIN pollen extracts [POLLEN] Allergy (Mild, Verified 12/31/23 13:48) SINUS IRRITATION Medication List - Last Reconciled 12/31/23 by BONITA Easton acetaminophen 500 mg PO Q4H PRN allopurinol 100 mg PO DAILY ammonium lactate 12% 1 appl topical .QOD PRN apixaban (Eliquis) 2.5 mg PO BID ascorbic acid (vitamin C) 500 mg PO DAILY blood sugar diagnostic (Accu-Chek Radha Plus test strips) USE DIRECTED TO TEST BLOOD SUAGR THREE TIMES DAILY calcium carbonate 500 mg PO BID PRN chair, wheel (Wheel chair) As directed chair, wheel (Wheel chair) As directed diabetic supplies, miscellan. DIABETIC SHOES WITH 3 INSERTS ergocalciferol (vitamin D2) 1,250 mcg PO Q14D fenofibrate 160 mg PO DAILY furosemide 40 mg PO DAILY hydralazine 25 mg PO BID 90 days insulin NPH and regular human 100 unit/mL (70-30) 20 units subcut BID@0800,2000 lancets (Microlet Lancet) USE DIRECTED TO CHECK BLOOD GLUCOSE THREE TIMES DAILY lorazepam 1 mg PO BID PRN magnesium oxide 400 mg PO BID nystatin 1 appl topical TID off loading boot As directed omeprazole 20 mg PO DAILY@0630 potassium chloride ER 20 mEq PO DAILY walker (Ultra-Light Rollator mis) To use daily zinc sulfate 220 mg PO DAILY HPI HPI follow-up after holter and echo: Details: Susan is an 88-year-old female with past medical history of obesity, chronic kidney disease, hypertension, hyperlipidemia, diabetes, persistent atrial fibrillation, who was recently admitted to [facility] with pulmonary edema. She was diuresed and sent home with Lasix 40 mg daily. An outpatient echocardiogram and Holter were just completed and she now presents for follow-up. Today she reports that she has been feeling much better since her hospital discharge. Her son is present and states that prior to the admission she was confused and hallucinating. She was having shortness of breath and had edema. Following her discharge on 12/21 he was able to get her into [facility]. They are both much happier with her there. She states that her breathing is comfortable. She sleeps with the head of the bed mildly elevated. No coughing, only trace edema in her left lower extremity. She has chronic issues with her right lower extremity in describes a recent fracture and charcot foot. She currently has an Anand wrap with half cast in place. She denies having chest discomfort at rest or with activity. She is mostly sedentary and currently is just using a wheelchair. No palpitations, lightheadedness, presyncope, syncope, falls. Taking meds as directed. She is unaware of what medicine she is taking as they are given to her by the [facility] staff. [facility] Medical History (Updated 12/31/23 @ 16:04 by LETTY EastonC) CKD (chronic kidney disease) stage 4, GFR 15-29 ml/min Atrial fibrillation Osteomyelitis Gout Anemia Hx of type A viral hepatitis Hyperlipidemia Obesity Diabetes mellitus Surgical History History of surgical removal of skin lesion History of biopsy History of excision of lesion H/O varicose vein ligation History of cholecystectomy Family History Father Gastric cancer Mother Acute CVA (cerebrovascular accident) Diabetes Brother Colon cancer Social History Household Members: Children Housing: House Do you presently have visiting nurse or other home services: Yes Alcohol intake: never Patient Tobacco Use Status: Never used Tobacco e-Cigarette/Vaping Use: Never Used Second Hand Smoke Exposure: No service: No Current occupational status: retired Cognitive needs: Yes (walker ) Hearing needs: No Vision needs: Yes Review of Systems Const All systems reviewed & are unremarkable except as noted in HPI and below ENT Denies dizziness Card Denies chest pain, Denies chest pain at rest, Denies chest pain with activity, Denies rapid heart rate, Denies pedal edema, Denies edema, Denies leg edema, Denies lightheadedness, Denies palpitations, Denies dyspnea, Denies dyspnea on exertion and Denies orthopnea Resp Denies cough, Denies dyspnea and Denies dyspnea on exertion GI Denies hematochezia and Denies change in stool character Musc Details: in wheelchair due to fx right lower extremity Reports abnormal gait, Reports limited range of motion, Denies muscle cramps, Reports muscle weakness, Denies numbness, Denies radiating pain into limb, Denies stiffness and Denies tingling Neuro Reports abnormal gait, Denies dizziness, Denies numbness and Denies tingling Endo Denies palpitations Physical Exam Vital Signs: Last Vital Signs Pulse 78 12/31/23 13:45 BP 114/62 12/31/23 13:45 Const Other: sitting in wheelchair - does not ambulate due to issues with right lower leg/ foot. General: comfortable and no acute distress Orientation/consciousness: patient oriented x3 Neck Neck: Yes normal visual inspection Resp Effort & Inspection: normal respiratory effort Auscultation: clear to auscultation bilaterally, no rales, no rhonchi and no wheezes Cardio Jugular venous distension: no JVD Rate: regular rate Rhythm: regular rhythm Heart sounds: S1 normal heart sound present, S2 normal heart sound present, no murmurs and no rubs Neuro General: patient oriented x3 Extrem Other: anand wrap and half cast on right lower extremity, trace edema left lower leg Psych Appearance: grossly normal Mental Status: mental status grossly normal Speech and movement: Normal speech and movement present Assessment & Plan Assessment & Plan (1) Atrial fibrillation: Code(s): I48.91 - Unspecified atrial fibrillation Category: Medical Plan: Atrial fibrillation which is persistent. Echocardiogram done 12/24/2023 shows EF 45-50%, basal inferior hypokinesis. Previous echo from 2020 showed normal EF. A Holter monitor was done on 12/24/2023 for 3 days shows atrial fibrillation with average heart rate 76, PVCs 2.4% of time, brief an SVT runs with longest 5 beats. Pulse is irregular on examination today, heart rate 78. She denies any heart palpitations. She is not sure if she is taking diltiazem and she believes it may have given her hallucinations. I reviewed the [facility] records and it seems she has been on the diltiazem right along right up until discharge on 12/21. We will call saima Stanley to ensure that she is taking this medication as it is needed for heart rate control. She is on Eliquis 2.5 mg b.i.d. according to the discharge summary. That dose is appropriate for her age and kidney function. Last labs done on 12/27/2022 showed creatinine 1.8 which is on the higher side for her. She does have chronic kidney disease. With her reduced EF will check with her primary community service specialist to see whether ischemic evaluation is warranted. Cardiology follow-up 3 months, sooner if needed. (2) CHF (congestive heart failure): Code(s): I50.9 - Heart failure, unspecified Category: Medical Plan: In November she was admitted to [facility] with the fracture of her right ankle. She was then sent to rehab and her son reports that she was getting short of breath, confused and hallucinating. He brought her then to [facility] where she was found to have mild Congestive heart failure, hypernatremia, hypokalemia. She was managed accordingly and discharged to rehab with Lasix 40 mg daily. Today she reports that her breathing is comfortable. She does not appear grossly fluid overloaded on exam. She is obese and in a wheelchair, making the assessment more challenging. Recent labs were done showing mild elevation in her creatinine from her baseline. I am reluctant to reduce the Lasix dose due to recent hospital admission. Will recommend to saima Stanley that her labs be rechecked in 1 week. Will have them watch for signs of fluid overload. (3) CKD (chronic kidney disease) stage 4, GFR 15-29 ml/min: Code(s): N18.4 - Chronic kidney disease, stage 4 (severe) Category: Medical Plan: As above Plan Time spent on chart review, documentation, interview and assessment Coding Level of Care Code Est Pt Level 4 (77588) Diagnoses Atrial fibrillation I48.91 CHF (congestive heart failure) I50.9 CKD (chronic kidney disease) stage 4, GFR 15-29 ml/min N18.4 Time Spent (min) 36
== END 2023-12-31 14:39 | disposition home or self-care (01) ==
PROVIDERS: PCP Internal Medicine; Visit Provider Nurse Practitioner Family
DX: I48.91 Unspecified atrial fibrillation (principal); I50.9 Heart failure, unspecified; N18.4 Chronic kidney disease, stage 4 (severe)
CPT/HCPCS: 99214

== ENCOUNTER → 2023-12-31 13:16 | Outpatient (BNVA) | payer MEDICARE, SELFPAY | PROVIDERS: PCP Internal Medicine; Visit Provider Nurse Practitioner Family | DX: I48.19 Other persistent atrial fibrillation (principal); I50.9 Heart failure, unspecified; N18.4 Chronic kidney disease, stage 4 (severe); Z79.01 Long term (current) use of anticoagulants | CPT/HCPCS: 99212 ==

== ENCOUNTER 2024-01-24 12:40 | Outpatient (RCR) | payer MEDICARE, SELFPAY ==
--- NOTE | 2024-01-14 14:12 | HE.ONCSEC ---
Called the son Matt. I LVM for son to return my call.
== END 2024-04-14 09:26 | disposition home or self-care (01) ==
LOC: HO.WCC 12:40
PROVIDERS: PCP Internal Medicine; Visit Provider Physician Assistant
DX: E11.622 Type 2 diabetes mellitus with other skin ulcer (principal); I87.331 Chronic venous hypertension (idiopathic) with ulcer and inflammation of right lower extremity; L97.812 Non-pressure chronic ulcer of other part of right lower leg with fat layer exposed; E11.610 Type 2 diabetes mellitus with diabetic neuropathic arthropathy; E11.40 Type 2 diabetes mellitus with diabetic neuropathy, unspecified; E11.22 Type 2 diabetes mellitus with diabetic chronic kidney disease; I12.9 Hypertensive chronic kidney disease with stage 1 through stage 4 chronic kidney disease, or unspecified chronic kidney disease; N18.9 Chronic kidney disease, unspecified; Z79.4 Long term (current) use of insulin
CPT/HCPCS: 11042; 99212; 99213

== ENCOUNTER 2024-02-22 10:50 | Outpatient (REF) | payer MEDICARE, OTHER, SELFPAY ==
[2024-02-22 11:15] LABS: MANUAL DIFF FLAG NO
[2024-02-22 11:32] LABS: Basophils Percent Auto 0.4 % (0-2); Eosinophils Absolute Auto 0.1 X10*3/uL (0.0-0.4); Eosinophils Percent Auto 1.8 % (0-4); Hematocrit 30.9 % (37.0-47.0); Hemoglobin 9.7 g/dl (12.0-16.0); Imm Gran Abs Auto 0.03 X10*3/uL (0.00-0.03); Imm Gran Pct Auto 0.4 % (0.0-0.4); Lymphocytes Absolute Auto 1.1 X10*3/uL (1.2-4.9); Lymphocytes Percent Auto 13.8 % (20-40); Mean Corpuscular HGB Conc 31.4 g/dl (31.0-35.0); Mean Corpuscular Hemoglobin 27.3 pg (27.0-33.0); Monocytes Absolute Auto 0.4 X10*3/uL (0.1-1.2); Monocytes Percent Auto 5.3 % (2-11); Neutrophils Absolute Auto 6.2 x10*3/uL (2.0-8.3); Neutrophils Percent Auto 78.3 % (45-73); Platelet Count 318 X10*3/uL (160-400); Red Blood Count 3.55 X10*6/uL (4.20-5.50); Red Cell Distribution Width 20.5 % (11.0-16.0)
[2024-02-22 12:12] LABS: Parathyroid Hormone Intact 113.6 pg/mL (8.7-77.1)
[2024-02-22 12:14] LABS: Albumin Level 3.3 g/dL (3.5-5.0); Anion Gap 14 (12-20); Blood Urea Nitrogen 48 mg/dL (9-16); Calcium 9.8 mg/dL (8.4-10.2); Carbon Dioxide 25 mmol/L (22-29); Chloride 108 mmol/L (96-108); Estimated Glomerular Filt Rate 22; Magnesium 1.7 mg/dL (1.6-2.6); Phosphorus 2.9 mg/dL (2.7-4.5); Potassium 4.6 mmol/L (3.3-5.1); Sodium 142 mmol/L (135-145)
[2024-02-22 12:30] LABS: Vitamin D 25-OH Total 21.1 ng/mL (>30)
== END 2024-02-22 10:51 | disposition home or self-care (01) ==
LOC: HO.LAB 10:50
PROVIDERS: Absent Provider Internal Medicine Nephrology; PCP Internal Medicine; Visit Provider Internal Medicine Medical Oncology
DX: E11.22 Type 2 diabetes mellitus with diabetic chronic kidney disease (principal); N18.4 Chronic kidney disease, stage 4 (severe); N25.0 Renal osteodystrophy
CPT/HCPCS: 36415; 80051; 82040; 82306; 82310; 82565; 83735; 83970; 84100; 84520; 85025

== ENCOUNTER 2024-02-23 16:25 | Outpatient (REF) | payer SELFPAY ==
[2024-02-23 17:01] LABS: Appearance Urine Cloudy; Color Urine Yellow; Glucose Urine UA Negative (Negative); Leukocyte Esterase Urine Small (1+) (Negative); Nitrite Urine Negative (Negative); PH 6.5 (5.0-9.0); UMIC TRIGGER UA YES; Urine Blood Negative (Negative); Urine Ketones Negative (Negative); Urine Protein 300 (3+) mg/dL (Neg-Trace)
[2024-02-23 17:33] LABS: Bacteria Urine 3+ (None Seen); Hyaline Casts Urine 0-2 /LPF (0-2); RBC Urine 0-2 /HPF (0-2); WBC Urine >50 /HPF (0-5)
[2024-02-23 18:09] LABS: Creatinine Urine 47.29 mg/dL; Protein/Creatinine Ratio, Ur 6.45 (<0.2); Total Protein Urine Random 305 mg/dL (<12)
== END 2024-02-23 16:26 | disposition home or self-care (01) ==
LOC: HO.LNP 16:25
PROVIDERS: Visit Provider Internal Medicine Nephrology
DX: Z13.89 Encounter for screening for other disorder (principal)
CPT/HCPCS: 81001; 82043; 82570; 84156

== ENCOUNTER 2024-03-02 14:04 | Outpatient (AMB) | payer MEDICARE, SELFPAY ==
--- NOTE | 2024-03-02 14:05 | A.OFFPC_ITS ---
Vital Signs 03/02/24 14:07 Height 5 ft 3 in BMI Reason not done Patient refused/unable BP 100/62 Blood Pressure Location Rt brachial Position Sitting Pulse 90 Pulse Source Pulse Oximeter Pulse Oximetry (%) 97 Oxygen Delivery Method Room Air Intake Visit Reasons: [facility] 02/17 Intake Note: Patient is here for hospital discharge follow up. Patient was discharged from [facility] on 02/18/24. Rn Labor And Delivery Required: No Cargo And Ramp Services Manager: Present Accompanied by: Son Allergies codeine [CODEINE] Allergy (Intermediate, Verified 03/02/24 14:06) BACK PAIN pollen extracts [POLLEN] Allergy (Mild, Verified 03/02/24 14:06) SINUS IRRITATION Medication List - Last Reconciled 03/06/24 by Christopher Zamudio MD acetaminophen 500 mg PO Q4H PRN allopurinol 100 mg PO DAILY ammonium lactate 12% 1 appl topical .QOD PRN apixaban (Eliquis) 2.5 mg PO BID ascorbic acid (vitamin C) 500 mg PO DAILY blood sugar diagnostic (Accu-Chek Radha Plus test strips) USE DIRECTED TO TEST BLOOD SUAGR THREE TIMES DAILY calcium carbonate 500 mg PO BID PRN chair, wheel (Wheel chair) As directed chair, wheel (Wheel chair) As directed diabetic supplies, miscellan. DIABETIC SHOES WITH 3 INSERTS diltiazem HCl CD 120 mg PO DAILY ergocalciferol (vitamin D2) 1,250 mcg PO Q14D fenofibrate 160 mg PO DAILY furosemide 40 mg PO DAILY [hEEL PROTECTOR CUSHION [place] t for pressure ulcer/FX right ankle t for pressure As directed] hydralazine 25 mg PO BID 90 days insulin NPH and regular human 100 unit/mL (70-30) 20 units subcut BID@0800,2000 insulin NPH and regular human 100 unit/mL (70-30) (Humulin 70/30 U-100 KwikPen) 20 units (0.2 mL) subcut QAM lancets (Microlet Lancet) USE DIRECTED TO CHECK BLOOD GLUCOSE THREE TIMES DAILY lorazepam 1 mg PO BID PRN magnesium oxide 400 mg PO BID nystatin 1 appl topical TID off loading boot As directed omeprazole 20 mg PO DAILY@0630 potassium chloride ER 20 mEq PO DAILY walker (Ultra-Light Rollator misc) To use daily zinc sulfate 220 mg PO DAILY Tobacco use date assessed: 03/02/24 Fall risk assessment: No Falls in past year Last assessed Fall Risk: 03/02/24 Dental Screening Dental Screen Date: 10/04/23 HPI Jeovanny Stanley 02/17 HPI Details DM HTN and hyperlip on rx; doing well; compliant [facility] Medical History (Updated 03/06/24 @ 09:37 by Christopher Zamudio MD) Hyperlipidemia CKD (chronic kidney disease) stage 4, GFR 15-29 ml/min Atrial fibrillation Osteomyelitis Gout Anemia Hx of type A viral hepatitis Obesity Diabetes mellitus Surgical History History of surgical removal of skin lesion History of biopsy History of excision of lesion H/O varicose vein ligation History of cholecystectomy Family History Father Gastric cancer Mother Acute CVA (cerebrovascular accident) Diabetes Brother Colon cancer Social History Household Members: Children Housing: House Do you presently have visiting nurse or other home services: Yes Alcohol intake: never Patient Tobacco Use Status: Never used Tobacco e-Cigarette/Vaping Use: Never Used Second Hand Smoke Exposure: No service: No Current occupational status: retired Cognitive needs: Yes (walker ) Hearing needs: No Vision needs: Yes Questionnaire Thrive Questionnaire Date Thrive assessed: 12/19/23 IWONA-7 AMB Questionnaire IWONA-7 Date IWONA - 7 assessed: 10/04/23 Source: Developed by Drs. Wilber Ortega, Vickie Briseno, David Calzada and colleagues, with an educational aide from [employer]. Review of Systems Const Denies chills, Denies headache(s) and Denies weight loss ENT Denies headache(s) Card Denies chest pain, Denies syncope, Denies irregular heart rhythm and Denies dyspnea Resp Denies chest congestion, Denies cough and Denies dyspnea GI Denies abdominal pain, Denies change in stool character, Denies nausea and Denies vomiting Musc Denies deformity and Denies joint swelling Neuro Denies syncope and Denies headache(s) Physical exam (Primary Care) Vital Signs: Last Vital Signs Pulse 90 03/02/24 14:07 BP 100/62 03/02/24 14:07 Pulse Ox 97 03/02/24 14:07 Oxygen Delivery Method Room Air 03/02/24 14:07 Tobacco/Smoking Status: Tobacco use Status Tobacco use date assessed 03/02/24 03/02/24 14:13 Patient Tobacco Use Status Never used Tobacco 03/02/24 14:13 e-Cigarette/Vaping Use Never Used 03/02/24 14:13 Thrive Assessment: Date of Thrive Assessment Date Thrive assessed 12/19/23 03/02/24 14:13 Const General: cooperative, comfortable, no acute distress and alert Neck Neck: Yes no lymphadenopathy Thyroid: Thyroid normal Resp Effort & Inspection: normal respiratory effort Auscultation: clear to auscultation bilaterally Percussion: percussion normal Cardio Jugular venous distension: no JVD Palpation: normal PMI Rate: regular rate Rhythm: regular rhythm Heart sounds: S1 normal heart sound present and S2 normal heart sound present GI Inspection: Yes normal to inspection Palpation (GI): No hepatosplenomegaly present Skin General skin exam: no rashes or lesions noted Extrem General: Yes no clubbing, cyanosis or edema Assessment and Plan Assessment & Plan (1) Diabetes mellitus with coincident hypertension: Code(s): E11.9 - Type 2 diabetes mellitus without complications; I10 - Essential (primary) hypertension Plan: stable; same rx (2) Hypertension associated with type 2 diabetes mellitus: Code(s): E11.59 - Type 2 diabetes mellitus with other circulatory complications; I15.2 - Hypertension secondary to endocrine disorders Plan: stable; same rx (3) Hyperlipidemia: Code(s): E78.5 - Hyperlipidemia, unspecified Qualifiers: Hyperlipidemia type: unspecified Qualified Code(s): E78.5 - Hyperlipidemia, unspecified Plan: stable; do labs Orders: Orders Lipid Panel Today Z13.220 - Encounter for screening for lipoid disorders Hemoglobin A1c Today R73.9 - Hyperglycemia, unspecified Thyroid Stimulating Hormone Today Z13.29 - Encounter for screening for other suspected endocrine disorder Complete Blood Count Auto Diff Today Z13.0 - Encounter for screening for diseases of the blood and blood-forming organs and certain disorders involving the immune mechanism Comprehensive [place]. Panel Fast Today Z13.9 - Encounter for screening, unspecified Medications: New insulin NPH and regular human 100 unit/mL (70-30) (Humulin 70/30 U-100 KwikPen) 20 units (0.2 mL) subcut QAM 15 mL 0RF Coding Level of Care Code Est Pt Level 4 (95993) Diagnoses Diabetes mellitus with coincident hypertension E11.9; I10 Hypertension associated with type 2 diabetes mellitus E11.59; I15.2 Hyperlipidemia, unspecified hyperlipidemia type E78.5 Hyperlipidemia type: unspecified
[2024-03-02 14:07] VITALS: BP 100/62; PULSE 90; O2SAT 97
== END 2024-03-02 14:31 | disposition home or self-care (01) ==
PROVIDERS: PCP Internal Medicine; Visit Provider Internal Medicine
DX: E11.59 Type 2 diabetes mellitus with other circulatory complications (principal); I10 Essential (primary) hypertension; I15.2 Hypertension secondary to endocrine disorders; E78.5 Hyperlipidemia, unspecified
CPT/HCPCS: 99214

== ENCOUNTER → 2024-03-23 23:59 | Outpatient (BNV) | payer MEDICARE, SELFPAY | PROVIDERS: PCP Internal Medicine; Referring Provider Internal Medicine; Visit Provider Internal Medicine | DX: I13.0 Hypertensive heart and chronic kidney disease with heart failure and stage 1 through stage 4 chronic kidney disease, or unspecified chronic kidney disease (principal); I50.32 Chronic diastolic (congestive) heart failure; E11.22 Type 2 diabetes mellitus with diabetic chronic kidney disease; N18.32 Chronic kidney disease, stage 3b | CPT/HCPCS: G0180 ==

== ENCOUNTER 2024-04-14 12:51 | Outpatient (REF) | payer MEDICARE, SELFPAY ==
[2024-04-14 13:48] LABS: Influenza A PCR NEGATIVE (Negative); Influenza B PCR NEGATIVE (Negative); Resp Syncy Virus RNA Qual PCR NEGATIVE (Negative); SARS COV2 PCR INHOUSE POSITIVE (Negative)
== END 2024-04-14 12:52 | disposition home or self-care (01) ==
LOC: HO.LAB 12:51
PROVIDERS: PCP Internal Medicine; Visit Provider Internal Medicine
DX: R09.89 Other specified symptoms and signs involving the circulatory and respiratory systems (principal)
CPT/HCPCS: 0241U

== ENCOUNTER 2024-04-17 14:34 | Outpatient (AMB) | payer MEDICARE, SELFPAY ==
[2024-04-17 14:45] VITALS: BP 134/62; PULSE 93
--- NOTE | 2024-04-17 14:45 | MHC.OFFVIS ---
Vital Signs 04/17/24 14:45 Height 5 ft 3 in BP 134/62 Blood Pressure Location Lt brachial Position Sitting Pulse 93 Pulse Source Monitor Intake Visit Reasons: f// Pay Station Department Manager Required: No Blanker Press Operator: Blanker Press Operator Present Allergies codeine [CODEINE] Allergy (Intermediate, Verified 04/17/24 14:47) BACK PAIN pollen extracts [POLLEN] Allergy (Mild, Verified 04/17/24 14:47) SINUS IRRITATION Medication List - Last Reconciled 04/17/24 by BONITA Easton acetaminophen 500 mg PO Q4H PRN allopurinol 100 mg PO DAILY ammonium lactate 12% 1 appl topical .QOD PRN apixaban (Eliquis) 2.5 mg PO BID ascorbic acid (vitamin C) 500 mg PO DAILY benzonatate 100 mg PO TID PRN blood sugar diagnostic (Accu-Chek Radha Plus test strips) USE DIRECTED TO TEST BLOOD SUAGR THREE TIMES DAILY calcium carbonate 500 mg PO BID PRN chair, wheel (Wheel chair) As directed chair, wheel (Wheel chair) As directed diabetic supplies, miscellan. DIABETIC SHOES WITH 3 INSERTS diltiazem HCl ER 180 mg PO DAILY ergocalciferol (vitamin D2) 1,250 mcg PO Q14D fenofibrate 160 mg PO DAILY furosemide 40 mg (2 x 20 mg) PO DAILY [hEEL PROTECTOR CUSHION Beckham t for pressure ulcer/FX right ankle t for pressure As directed] hydralazine 25 mg PO BID 90 days insulin NPH and regular human 100 unit/mL (70-30) 20 units subcut BID@0800,2000 insulin NPH and regular human 100 unit/mL (70-30) (Humulin 70/30 U-100 KwikPen) 20 units (0.2 mL) subcut BID lancets (Microlet Lancet) USE DIRECTED TO CHECK BLOOD GLUCOSE THREE TIMES DAILY lorazepam 1 mg PO BID PRN magnesium oxide 400 mg PO BID nystatin 1 appl topical TID off loading boot As directed omeprazole 20 mg PO DAILY@0630 potassium chloride ER 20 mEq PO DAILY walker (Ultra-Light Rollator misc) To use daily zinc sulfate 220 mg PO DAILY HPI HPI f: Details: Susan is an 88-year-old female with past medical history of obesity, chronic kidney disease, hypertension, hyperlipidemia, diabetes, persistent atrial fibrillation, who was admitted to [facility] December 2023 with pulmonary edema. She was diuresed and sent home with Lasix 40 mg daily. Echocardiogram had shown EF 45-50%. Holter monitor showed heart rate was well controlled. Today she presents for follow-up. Today she reports that is residing back at home. She was discharged from the rehab few weeks ago. She tells me she has been doing great. She has no concerning symptoms. She is not able to ambulate due to the condition of her right foot and tells me that she is going to be having reconstruction of the foot and ankle next month. She is able to pivot in transfer into a wheelchair with only weight-bearing on her left. She has no chest discomfort at rest or with activity. She denies shortness of breath, PND, orthopnea. No palpitations, lightheadedness, presyncope, syncope, falls. Taking meds as directed. No bleeding issues reported. Her son is present. [facility] Medical History Hyperlipidemia CKD (chronic kidney disease) stage 4, GFR 15-29 ml/min Atrial fibrillation Osteomyelitis Gout Anemia Hx of type A viral hepatitis Obesity Diabetes mellitus Surgical History History of surgical removal of skin lesion History of biopsy History of excision of lesion H/O varicose vein ligation History of cholecystectomy Family History Father Gastric cancer Mother Acute CVA (cerebrovascular accident) Diabetes Brother Colon cancer Social History Household Members: Children Housing: House Do you presently have visiting nurse or other home services: Yes Alcohol intake: never Patient Tobacco Use Status: Never used Tobacco e-Cigarette/Vaping Use: Never Used Second Hand Smoke Exposure: No service: No Current occupational status: retired Cognitive needs: Yes (walker ) Hearing needs: No Vision needs: Yes Review of Systems Const All systems reviewed & are unremarkable except as noted in HPI and below ENT Denies dizziness Card Denies chest pain, Denies chest pain at rest, Denies chest pain with activity, Denies rapid heart rate, Denies pedal edema, Denies edema, Denies leg edema, Denies lightheadedness, Denies palpitations, Denies dyspnea, Denies dyspnea on exertion and Denies orthopnea Resp Denies cough, Denies dyspnea and Denies dyspnea on exertion GI Denies hematochezia and Denies change in stool character Musc Reports abnormal gait, Reports limited range of motion, Denies muscle cramps, Reports muscle weakness, Denies numbness, Denies radiating pain into limb, Denies stiffness and Denies tingling Neuro Reports abnormal gait, Denies dizziness, Denies numbness and Denies tingling Endo Denies palpitations Physical Exam Vital Signs: Last Vital Signs Pulse 93 04/17/24 14:45 BP 134/62 04/17/24 14:45 Const Other: sitting in wheelchair - does not ambulate due to issues with right lower leg/ foot. General: comfortable and no acute distress Orientation/consciousness: patient oriented x3 Neck Neck: Yes normal visual inspection Resp Effort & Inspection: normal respiratory effort Auscultation: clear to auscultation bilaterally, no rales, no rhonchi and no wheezes Cardio Jugular venous distension: no JVD Rate: regular rate Rhythm: abnormal rhythm Heart sounds: S1 normal heart sound present, S2 normal heart sound present, no murmurs and no rubs Neuro General: patient oriented x3 Extrem Other: anand wrap to right lower leg and foot, orthopedic boot to left foot Psych Appearance: grossly normal Mental Status: mental status grossly normal Speech and movement: Normal speech and movement present Office Procedures EKG Details: Today, read by me, atrial fibrillation with low-voltage QRS, can not exclude prior anterior infarct rate 93, QTC 457 millisecond [id number], Complete Assessment & Plan Assessment & Plan (1) Atrial fibrillation: Code(s): I48.91 - Unspecified atrial fibrillation Category: Medical Plan: History of persistent Atrial fibrillation. A Holter monitor was done on 12/24/2023 for 3 days shows atrial fibrillation with average heart rate 76, PVCs 2.4% of time, brief an SVT runs with longest 5 beats. Echocardiogram done 12/24/2023 shows EF 45-50%, basal inferior hypokinesis. Previous echo from 2020 showed normal EF. EKG done today showing atrial fibrillation, rate 93. She denies any recent heart palpitations. Pulse recheck done by me using sat monitor later in the visit was mostly in the 90s. She has been on diltiazem for heart rate control. Unclear why she is not on beta-king. I do not see a diagnosis of COPD. Will have her stop diltiazem and start on metoprolol XL 50 mg daily for heart rate control. This medication will be better with her mildly reduced EF. She is on Eliquis 2.5 mg b.i.d. That dose is appropriate for her age and kidney function. Last labs done on 02/22/2024 showed creatinine 2.11, which is on the higher side for her. She does have known chronic kidney disease and follows with Nephrology. (2) CHF (congestive heart failure): Code(s): I50.9 - Heart failure, unspecified Category: Medical Plan: In November 2023 she was admitted to [facility] with the fracture of her right ankle. She was then sent to rehab and her son reports that she was getting short of breath, confused and hallucinating. He brought her then to [facility] where she was found to have mild Congestive heart failure, hypernatremia, hypokalemia. She was managed accordingly and discharged to rehab with Lasix 40 mg daily. Echocardiogram as above with mildly reduced EF. She has not had recurrent breathing issues since that time. Today she reports that her breathing is comfortable. She does not appear grossly fluid overloaded on exam. She is obese and in a wheelchair, making the assessment more challenging. Continue current Lasix. Signs and symptoms of heart failure reviewed with her. (3) CKD (chronic kidney disease) stage 4, GFR 15-29 ml/min: Code(s): N18.4 - Chronic kidney disease, stage 4 (severe) Category: Medical Plan: As above (4) Preop cardiovascular exam: Code(s): Z01.810 - Encounter for preprocedural cardiovascular examination Category: Medical Plan: Preop for reconstruction of her right foot and ankle by DOMITILA Hughes on 05/11/2024. She says she will be having general anesthesia for this 2-1/2 hour procedure. Recent echo with mildly reduced EF and heart failure admission. Will check a pharmacological nuclear stress test to assess for any ischemia. This note will be updated with test results when available and preop clearance. (5) Cardiomyopathy: Code(s): I42.9 - Cardiomyopathy, unspecified Category: Medical Plan: Mild cardiomyopathy as above. Checking stress test to see if ischemic versus nonischemic. Changing her diltiazem over to metoprolol. Not on Anand or Arb due to chronic kidney disease. She is on hydralazine to help with blood pressure control. She is on Lasix 40 mg daily. Plan Time spent on chart review, documentation, interview and assessment Orders: Orders NM cardiolite stress test Today I42.9 - Cardiomyopathy, unspecified, Z01.810 - Encounter for preprocedural cardiovascular examination CA lexiscan stress w trupti Today I42.9 - Cardiomyopathy, unspecified, I48.91 - Unspecified atrial fibrillation, I50.9 - Heart failure, unspecified, Z01.810 - Encounter for preprocedural cardiovascular examination Medications: New metoprolol succinate ER Stop Diltiazem - start Metoprolol for afib heart rate control 50 mg PO DAILY 30 tabs 5RF Coding Level of Care Code Est Pt Level 4 (17860) Diagnoses Atrial fibrillation I48.91 CHF (congestive heart failure) I50.9 CKD (chronic kidney disease) stage 4, GFR 15-29 ml/min N18.4 Preop cardiovascular exam Z01.810 Cardiomyopathy I42.9 CPT Codes EKG - CPT: [id number], Complete ([id number]) Time Spent (min) 36
== END 2024-04-17 15:32 | disposition home or self-care (01) ==
PROVIDERS: PCP Internal Medicine; Visit Provider Nurse Practitioner Family
DX: I48.91 Unspecified atrial fibrillation (principal); I50.9 Heart failure, unspecified; N18.4 Chronic kidney disease, stage 4 (severe); Z01.810 Encounter for preprocedural cardiovascular examination; I42.9 Cardiomyopathy, unspecified
CPT/HCPCS: 93010; 99214

== ENCOUNTER → 2024-04-17 14:34 | Outpatient (BNVA) | payer SELFPAY | PROVIDERS: PCP Internal Medicine; Visit Provider Nurse Practitioner Family | DX: Z01.810 Encounter for preprocedural cardiovascular examination (principal); I48.91 Unspecified atrial fibrillation; I50.9 Heart failure, unspecified; N18.4 Chronic kidney disease, stage 4 (severe); I42.9 Cardiomyopathy, unspecified; Z79.01 Long term (current) use of anticoagulants; Z79.899 Other long term (current) drug therapy | CPT/HCPCS: 93005; 99212 ==

== ENCOUNTER → 2024-04-25 09:07 | Outpatient (REF) | payer MEDICARE, SELFPAY ==
--- NOTE | ~2024-04-25 | NM_ITS ---
Lexiscan Myocardial perfusion study Indication: Preoperative cardiovascular evaluation Technique: The patient was brought in for a Lexiscan perfusion study on 04/25/2024 and was injected 0.4 mg of Lexiscan intravenously. Within a minute of this injection 30 mCi of sestamibi was given intravenously. Images were obtained using the SPECT gamma camera interlaced with the gating device. Images were obtained in supine position. Resting perfusion study was performed on 04/27/2024. Patient was administered 30 mCi of sestamibi intravenously at rest. Images were then obtained in supine position. Total DLP 125 mGy-cm. Images were processed with the software and compared side to side in short axis, horizontal long axis and vertical long axis views. Findings: Raw aquisition reviewed. Arms by the side. Undergarment on during imaging. The stress perfusion study showed diminished tracer uptake in the distal part of anterior septum, adjacent portions of apex, apical inferior wall. There is some improvement in tracer uptake with CT attenuation correction and could indicate components of diaphragmatic attenuation artifact. There is also diminished uptake in the basal part of inferior wall which also improves with CT attenuation correction. The gated study shows normal LV systolic function with calculated LVEF of 59%. LV cavity is normal in size. The gated study shows diminished contractility at the apex and adjacent portions of inferior wall, anterior septum. There is also imaged contractility in the basal inferior wall Resting study shows diminished tracer uptake in the apical part of inferior wall. There is improved uptake at the apex and apical anterior septum. With CT attenuation correction, there is improvement suggestive of diaphragmatic attenuation artifact. Gating at rest reveals diminished contractility at the apical part of inferior wall. Also there is contact between the basal part of inferior wall. The findings are consistent with mixed perfusion defect at the apex and the adjacent parts of anterior septum and inferolateral wall. Fixed-appearing perfusion defect at the base of part of inferior wall and adjacent inferior septum. NM/NM cardiolite stress test Impression: 1. Myocardial perfusion imaging study shows mixed ischemia/infarct pattern at the apex and adjacent parts of anterior septum and inferolateral wall. Nontransmural infarct pattern in the basal part of inferior wall and adjacent inferior septum. 2. Gated LVEF is 49% during stress and 62% during rest. 3. Transient ischemic dilatation not present. EKG component of the test reported separately. Electronically signed by: Jonathon Andrews MD 04/30/2024 01:00 PM EDT RP
--- NOTE | 2024-04-25 09:11 | CA_ITS ---
Acquisition Time: 2024-04-25 09:20:01 Total Exercise Time: 00:02:00 Test Indications: PREOP Medications: Protocol: LEXISCAN Max HR: 110 BPM 83% of Pred: 132 BPM Max BP: 146/072 mmHG Max Work Load: 1.0 METS Pharmacological stress test with Lexiscan injection, while sitting and moving right arm, with mild sob, no chest discomfort, with isolated PVCs, with normotensive response to injection, with nondiagnostic EKG for ischemia. In recovery she was treated with Aminophylline 75mg IVP to reverse Lexiscan. Nuclear images pending. Test reviewed with Dr Andrews. Referred By: Sarah Pedersen Overread By: SARAH PEDERSEN
== END ==
LOC: HO.CARD 09:07
PROVIDERS: PCP Internal Medicine; Visit Provider Nurse Practitioner Family
DX: Z01.810 Encounter for preprocedural cardiovascular examination (principal); I42.9 Cardiomyopathy, unspecified; I50.9 Heart failure, unspecified; I48.91 Unspecified atrial fibrillation
CPT/HCPCS: 78452; 93017; A9500; J0280; J2785

== ENCOUNTER → 2024-04-25 09:11 | Outpatient (BNV) | payer MEDICARE, SELFPAY | PROVIDERS: PCP Internal Medicine; Visit Provider Nurse Practitioner Family | DX: Z01.810 Encounter for preprocedural cardiovascular examination (principal) | CPT/HCPCS: 78452; 93016; 93018 ==

== ENCOUNTER 2024-06-14 14:17 | Outpatient (AMB) | payer MEDICARE, SELFPAY ==
[2024-06-14 14:19] VITALS: BP 100/62; PULSE 67; O2SAT 99
--- NOTE | 2024-06-14 14:19 | A.OFFPC_ITS ---
Vital Signs 06/14/24 14:19 06/14/24 14:47 Height 5 ft 3 in BP 100/62 108/62 Blood Pressure Location Lt brachial Lt brachial Position Sitting Sitting Pulse 67 Pulse Source Pulse Oximeter Pulse Oximetry (%) 99 Oxygen Delivery Method Room Air Intake Visit Reasons: [facility] 06/11 right achilles tendon repair Geodetic Survey Director Required: No Accompanied by: Self / Same As Patient Allergies codeine [CODEINE] Allergy (Intermediate, Verified 06/14/24 14:19) BACK PAIN pollen extracts [POLLEN] Allergy (Mild, Verified 06/14/24 14:19) SINUS IRRITATION metoprolol Adverse Reaction (Intermediate, Verified 06/14/24 14:19) Hallucinations Medication List - Last Reconciled 06/15/24 by Christopher Zamudio MD acetaminophen 500 mg PO Q4H PRN allopurinol 100 mg PO DAILY ammonium lactate 12% 1 appl topical .QOD PRN apixaban (Eliquis) 2.5 mg PO BID ascorbic acid (vitamin C) 500 mg PO DAILY benzonatate 100 mg PO TID PRN blood sugar diagnostic (Accu-Chek Radha Plus test strips) USE DIRECTED TO TEST BLOOD SUAGR THREE TIMES DAILY calcium carbonate 500 mg PO BID PRN chair, wheel (Wheel chair) As directed chair, wheel (Wheel chair) As directed diabetic supplies, miscellan. DIABETIC SHOES WITH 3 INSERTS diltiazem HCl CD 120 mg PO DAILY ergocalciferol (vitamin D2) 1,250 mcg PO Q14D fenofibrate 160 mg PO DAILY furosemide 40 mg (2 x 20 mg) PO DAILY [hEEL PROTECTOR CUSHION Beckham t for pressure ulcer/FX right ankle t for pressure As directed] hydralazine 25 mg PO BID 90 days insulin NPH and regular human 100 unit/mL (70-30) 20 units subcut BID@0800,2000 insulin NPH and regular human 100 unit/mL (70-30) (Humulin 70/30 U-100 KwikPen) 20 units (0.2 mL) subcut BID lancets (Microlet Lancet) USE DIRECTED TO CHECK BLOOD GLUCOSE THREE TIMES DAILY lorazepam 1 mg PO BID PRN magnesium oxide 400 mg PO BID nystatin 1 appl topical TID off loading boot As directed omeprazole 20 mg PO DAILY@0630 pen needle, diabetic (Ultra-Thin II Insulin Pen Foster) As directed potassium chloride ER 20 mEq PO DAILY nilda WallaceUltra-Light Rollator misc) To use daily zinc sulfate 220 mg PO DAILY Tobacco use date assessed: 06/14/24 Fall risk assessment: 2 + Falls in past year Last assessed Fall Risk: 06/14/24 Dental Screening Dental Screen Date: 06/14/24 Did you have a dental visit in the last 12 months?: No Did you have a dental problem in the last 6 months where you did not have access to dental care?: No Was dental information given to patient?: No HPI [facility] 06/11 right achilles tendon repair HPI Details had right ankle surgery and was discharged recently from a longterm; still has a cast and wheelchair bound [facility] Medical History Hyperlipidemia CKD (chronic kidney disease) stage 4, GFR 15-29 ml/min Atrial fibrillation Osteomyelitis Gout Anemia Hx of type A viral hepatitis Obesity Diabetes mellitus Surgical History History of surgical removal of skin lesion History of biopsy History of excision of lesion H/O varicose vein ligation History of cholecystectomy Family History Father Gastric cancer Mother Acute CVA (cerebrovascular accident) Diabetes Brother Colon cancer Social History Household Members: Children Housing: House Do you presently have visiting nurse or other home services: Yes Alcohol intake: never Patient Tobacco Use Status: Never used Tobacco e-Cigarette/Vaping Use: Never Used Second Hand Smoke Exposure: No service: No Current occupational status: retired Cognitive needs: Yes (walker ) Hearing needs: No Vision needs: Yes Questionnaire PHQ-9 Over the last 2 weeks, how often have you been bothered by any of the following problems? 1. Little interest or pleasure in doing things: not at all 2. Feeling down, depressed, or hopeless: not at all 3. Trouble falling or staying asleep, or sleeping too much: not at all 4. Feeling tired or having little energy: not at all 5. Poor appetite or overeating: not at all 6. Feeling bad about yourself - or that you are a failure or have let yourself or your family down: not at all 7. Trouble concentrating on things, such as reading the newspaper or watching television: not at all 8. Moving or speaking so slowly that other people could have noticed. Or the opposite - being so fidgety or restless that you have been moving around a lot more than usual: not at all 9. Thoughts that you would be better off or of hurting yourself in some way: not at all Total score: 0 Depression Screening Interpretation: Negative Depression Screening Done: Yes 35580 - PHQ-9 Billing: Yes Source: Developed by Drs. Wilber Ortega, Vickie Briseno, David Calzada and colleagues, with an educational aide from [employer]. Thrive Questionnaire Date Thrive assessed: 06/14/24 I am a: Patient What is your living situation today?: I have a steady place to live Within the past 12 months, did the food you bought not last and you didn't have the money to get more?: Never true Within the past 12 months, did you worry whether your food would run out before you got money to buy more?: Never true Do you have trouble paying for medicines?: No Do you have trouble getting transportation to medical appointments?: No Do you have trouble paying your heating and electricity bill?: No Do you have trouble taking care of your child, family member or friend?: No Do you have trouble with day-to-day activities such as bathing, preparing meals, shopping, managing finances, etc.?: No Are you currently unemployed and looking for a job?: No Are you interested in more education?: No Please select the resources that you would like help with: None Currently or been in a relationship where the following occur: No concerns reported THRIVE Score: 0 AUDIT C Alcohol Use Questionnaire (AUDIT-C) 1. How often do you have a drink containing alcohol?: Never Total Score: 0 Score Reviewed/Action Taken: Yes IWONA-7 AMB Questionnaire IWONA-7 Date IWONA - 7 assessed: 06/14/24 Feeling nervous, anxious, or on edge: 0 = Not at all Not being able to stop or control worryin = Not at all Worrying too much about different things: 0 = Not at all Trouble relaxin = Not at all Being so restless that it is hard to sit still: 0 = Not at all Becoming easily annoyed or irritable: 0 = Not at all Feeling afraid as if something awful might happen: 0 = Not at all Total IWONA-7 score (0-4 normal; 5-9 mild; 10-14 moderate; 15-21 severe): 0 Source: Developed by Drs. Wilber Ortega, Vickie Briseno, David Calzada and colleagues, with an educational aide from [employer]. Review of Systems Const Denies chills, Denies headache(s) and Denies weight loss ENT Denies headache(s) Card Denies chest pain, Denies syncope, Denies irregular heart rhythm and Denies dyspnea Resp Denies chest congestion, Denies cough and Denies dyspnea GI Denies abdominal pain, Denies change in stool character, Denies nausea and Denies vomiting Musc Denies deformity and Denies joint swelling Neuro Denies syncope and Denies headache(s) Physical exam (Primary Care) Vital Signs: Last Vital Signs Pulse 67 06/14/24 14:19 BP 108/62 06/14/24 14:47 Pulse Ox 99 06/14/24 14:19 Oxygen Delivery Method Room Air 06/14/24 14:19 Tobacco/Smoking Status: Tobacco use Status Tobacco use date assessed 06/14/24 06/14/24 14:20 Patient Tobacco Use Status Never used Tobacco 06/14/24 14:20 e-Cigarette/Vaping Use Never Used 06/14/24 14:20 PHQ-9: PHQ-9 Score PHQ-9: Total score 0 06/14/24 14:47 Depression Screening Interpretation: Negative Thrive Assessment: Date of Thrive Assessment Date Thrive assessed 06/14/24 06/14/24 14:20 Currently or been in a relationship where the following occur: No concerns reported Const General: cooperative, comfortable, no acute distress and alert Neck Neck: Yes no lymphadenopathy Thyroid: Thyroid normal Resp Effort & Inspection: normal respiratory effort Auscultation: clear to auscultation bilaterally Percussion: percussion normal Cardio Jugular venous distension: no JVD Palpation: normal PMI Rate: regular rate Rhythm: regular rhythm Heart sounds: S1 normal heart sound present and S2 normal heart sound present GI Inspection: Yes normal to inspection Palpation (GI): No hepatosplenomegaly present Skin General skin exam: no rashes or lesions noted Extrem General: Yes no clubbing, cyanosis or edema Coding Level of Care Code Est Pt Level 3 (72148) Diagnoses Ankle fracture, right S82.891A Assessment & Plan Assessment & Plan (1) Ankle fracture, right: Code(s): S82.891A - Other fracture of right lower leg, initial encounter for closed fracture Category: Medical Plan: as per ortho Orders: Orders AMB Hemoglobin A1c 06/14/24 E11.9 - Type 2 diabetes mellitus without complications, I10 - Essential (primary) hypertension Medications: New pen needle, diabetic (Ultra-Thin II Insulin Pen Foster) As directed 100 ea 0RF
[2024-06-14 14:47] VITALS: BP 108/62
== END 2024-06-14 14:49 | disposition home or self-care (01) ==
PROVIDERS: PCP Internal Medicine; Visit Provider Internal Medicine
DX: S82.891A Other fracture of right lower leg, initial encounter for closed fracture (principal)

== ENCOUNTER → 2024-06-14 14:17 | Outpatient (BNVA) | payer MEDICARE, SELFPAY | PROVIDERS: PCP Internal Medicine; Visit Provider Internal Medicine | DX: S82.891A Other fracture of right lower leg, initial encounter for closed fracture (principal); E11.9 Type 2 diabetes mellitus without complications; I10 Essential (primary) hypertension | CPT/HCPCS: 96127; 99212 ==

== ENCOUNTER 2024-07-18 13:33 | Outpatient (REF) | payer MEDICARE, SELFPAY ==
[2024-07-18 14:01] LABS: MANUAL DIFF FLAG NO
[2024-07-18 15:03] LABS: Basophils Percent Auto 0.4 % (0-2); Eosinophils Absolute Auto 0.2 X10*3/uL (0.0-0.4); Eosinophils Percent Auto 2.2 % (0-4); Hematocrit 30.3 % (37.0-47.0); Hemoglobin 9.5 g/dl (12.0-16.0); Imm Gran Abs Auto 0.04 X10*3/uL (0.00-0.03); Imm Gran Pct Auto 0.5 % (0.0-0.4); Lymphocytes Absolute Auto 1.2 X10*3/uL (1.2-4.9); Lymphocytes Percent Auto 14.9 % (20-40); Mean Corpuscular HGB Conc 31.4 g/dl (31.0-35.0); Mean Corpuscular Hemoglobin 27.5 pg (27.0-33.0); Mean Corpuscular Volume 87.8 fL (80.0-98.0); Mean Platelet Volume 12.9 fL (9.4-12.3); Monocytes Absolute Auto 0.4 X10*3/uL (0.1-1.2); Monocytes Percent Auto 5.2 % (2-11); Neutrophils Absolute Auto 6.4 x10*3/uL (2.0-8.3); Neutrophils Percent Auto 76.8 % (45-73); Platelet Count 254 X10*3/uL (160-400); Red Blood Count 3.45 X10*6/uL (4.20-5.50); Red Cell Distribution Width 16.3 % (11.0-16.0); White Blood Count 8.3 X10*3/uL (4.8-10.8)
== END 2024-07-18 13:34 | disposition home or self-care (01) ==
LOC: HO.ONC 13:33
PROVIDERS: Visit Provider Internal Medicine Medical Oncology
DX: N18.4 Chronic kidney disease, stage 4 (severe) (principal); D64.9 Anemia, unspecified
CPT/HCPCS: 36415; 85025

== ENCOUNTER 2024-08-01 11:12 | Outpatient (REF) | payer MEDICARE, SELFPAY ==
[2024-08-01 11:30] LABS: MANUAL DIFF FLAG NO
[2024-08-01 12:12] LABS: Basophils Percent Auto 0.4 % (0-2); Eosinophils Absolute Auto 0.2 X10*3/uL (0.0-0.4); Eosinophils Percent Auto 2.7 % (0-4); Hematocrit 29.7 % (37.0-47.0); Hemoglobin 9.2 g/dl (12.0-16.0); Imm Gran Abs Auto 0.02 X10*3/uL (0.00-0.03); Imm Gran Pct Auto 0.3 % (0.0-0.4); Lymphocytes Absolute Auto 1.2 X10*3/uL (1.2-4.9); Lymphocytes Percent Auto 16.2 % (20-40); Mean Corpuscular Volume 87.1 fL (80.0-98.0); Mean Platelet Volume 12.8 fL (9.4-12.3); Monocytes Absolute Auto 0.4 X10*3/uL (0.1-1.2); Neutrophils Absolute Auto 5.5 x10*3/uL (2.0-8.3); Neutrophils Percent Auto 74.4 % (45-73); Platelet Count 267 X10*3/uL (160-400); Red Blood Count 3.41 X10*6/uL (4.20-5.50); Red Cell Distribution Width 15.9 % (11.0-16.0); White Blood Count 7.4 X10*3/uL (4.8-10.8)
--- OUTSIDE RECORDS SUMMARY | 2024-08-02 20:40 | XMS_ITS | Data Portability ---
Author Organization [facility], Main Office Address [address] [place] [address] Care Team Providers Care Size Mixer Name Role Phone TISHA MANZO Primary Care Provider [phone] YARA CISNEROS 2ND FLOOR OTHER Assessment Encounter Date Assessment Date Assessment LastModified by Organization Details LastModified Time 02/04/2024 02/04/2024 Labs 01/02:Na 141-K 3.8-Bun 33-Cr1.7-wbc 6.0-hgb 9.0-hct 30.1-plt 250 Labs 01/09: Na 140-K 3.5-Bun 37--Cr 1.7-wbc 5.8-hgb 8.6-hct 27.5-plt 232 Labs 01/17: Na 142- K 4.0-Bun 37- Cr 1.9-wbc 6.4-hgb 9.1-hct 29.5-plt 275 Labs 01/23 :Na 140-K 3.8-Bun 37- Cr 1.8-wbc 6.0-hgb 9.5-hct 30.8-plt 284 Labs 01/30: Na 137-K 3.6-Bun 42-Cr 1.9-wbc 5.0-hgb 8.8-hct 27.9-plt 269- Not available 02/04/2024 10:53:00 02/07/2024 02/07/2024 Labs 01/02:Na 141-K 3.8-Bun 33-Cr1.7-wbc 6.0-hgb 9.0-hct 30.1-plt 250 Labs 01/09: Na 140-K 3.5-Bun 37--Cr 1.7-wbc 5.8-hgb 8.6-hct 27.5-plt 232 Labs 01/17: Na 142- K 4.0-Bun 37- Cr 1.9-wbc 6.4-hgb 9.1-hct 29.5-plt 275 Labs 01/23 :Na 140-K 3.8-Bun 37- Cr 1.8-wbc 6.0-hgb 9.5-hct 30.8-plt 284 Labs 01/30: Na 137-K 3.6-Bun 42-Cr 1.9-wbc 5.0-hgb 8.8-hct 27.9-plt 269- Labs 02/06: Na 141-K 3.7-Bun 45-Cr 1.9-wbc 6.2-hgb 9.1-hct 29.0-plt 293 Not available 02/07/2024 14:36:52 02/10/2024 02/10/2024 Labs 01/02:Na 141-K 3.8-Bun 33-Cr1.7-wbc 6.0-hgb 9.0-hct 30.1-plt 250 Labs 01/09: Na 140-K 3.5-Bun 37--Cr 1.7-wbc 5.8-hgb 8.6-hct 27.5-plt 232 Labs 01/17: Na 142- K 4.0-Bun 37- Cr 1.9-wbc 6.4-hgb 9.1-hct 29.5-plt 275 Labs 01/23 :Na 140-K 3.8-Bun 37- Cr 1.8-wbc 6.0-hgb 9.5-hct 30.8-plt 284 Labs 01/30: Na 137-K 3.6-Bun 42-Cr 1.9-wbc 5.0-hgb 8.8-hct 27.9-plt 269- Labs 02/06: Na 141-K 3.7-Bun 45-Cr 1.9-wbc 6.2-hgb 9.1-hct 29.0-plt 293 Not available 02/10/2024 12:20:18 02/14/2024 02/14/2024 Labs 01/02:Na 141-K 3.8-Bun 33-Cr1.7-wbc 6.0-hgb 9.0-hct 30.1-plt 250 Labs 01/09: Na 140-K 3.5-Bun 37--Cr 1.7-wbc 5.8-hgb 8.6-hct 27.5-plt 232 Labs 01/17: Na 142- K 4.0-Bun 37- Cr 1.9-wbc 6.4-hgb 9.1-hct 29.5-plt 275 Labs 01/23 :Na 140-K 3.8-Bun 37- Cr 1.8-wbc 6.0-hgb 9.5-hct 30.8-plt 284 Labs 01/30: Na 137-K 3.6-Bun 42-Cr 1.9-wbc 5.0-hgb 8.8-hct 27.9-plt 269- Labs 02/06: Na 141-K 3.7-Bun 45-Cr 1.9-wbc 6.2-hgb 9.1-hct 29.0-plt 293 Spent 30 reviewing records, seeing pt, consulting with staff and documenting [place] Not available 03/11/2024 19:10:11 02/18/2024 02/18/2024 Labs 02/06: Na 141-K 3.7-Bun 45-Cr 1.9-wbc 6.2-hgb 9.1-hct 29.0-plt 293 Not available 02/18/2024 14:24:00 Plan of Treatment Reminders Order Date Submit Date Provider Last Modified By Organization Details Last Modified Time Details Appointments None record ed. Lab None record ed. Referral None record ed. Procedures None record ed. Surgeries None record ed. Imaging None record ed. Medication Orders None record ed. Patient TargetsNo targets recorded. Patient InstructionsNo instructions recorded. Reason for Referral None Reported. Problems Name Problem SNOMED Code Status Onset Date Resolution Date Notes Provider Name and Address Organization Details Recorded Time Bacteremi a 8277215 Active 2022 MSSA foot infection Not Available [facility] 4 02:47:47 Type 2 diabetes mellitus 41743026 Active 2022 Not Available [facility] 4 02:47:47 Hypothyro idism 72287465 Active 2022 Not Available [facility] 4 02:47:47 Chronic kidney disease 523672180 Active 2022 Not Available [facility] 4 02:47:47 Gout 36118399 Active 2022 Not Available [facility] 4 02:47:47 Gastroeso phageal reflux disease without esophagit is 792502026 Active 2022 Not Available [facility] 4 02:47:47 Hyperlipi demia 43504159 Active 2022 Not Available [facility] 4 02:47:47 Essential hypertens ion 18355500 Active 2022 Not Available [facility] 4 02:47:47 Hypomagne semia 643435352 Active 2023 Not Available [facility] 4 02:47:47 Vitamin D deficienc y 30693303 Active 2023 Not Available [facility] 4 02:47:47 Chronic diastolic heart failure 204705054 Active 2023 Janee Davis MD [address] [facility], [facility] [address], [place], [address] , [facility] 4 10:48:17 Anemia 136146365 Active 2023 Janee Davis MD [address] [facility], [address], [place], [address] , [facility] 4 11:10:38 Bimalleol ar fracture of ankle 942354903 Active 2023 TATI CURRIE [address] [facility], [address], [place], [address] , [facility] 4 14:06:55 Stasis dermatiti s and venous ulcer of lower extremity due to chronic periphera l venous hypertens ion 43626311009 9102 Active 2023 Janee Davis MD [address] [facility], [address], [place], [address] , [facility] 4 23:00:37 Notes:Some problems listed i n Document: #[id number] could not be added to this patient's chart. Please review this document and add these problems to the patient's chart manually as needed. Problem Notes None recorded. Medical Equipment None Reported. Allergies Allergen ID Allergen Name Allergen Category Reaction Reaction Severity Criticality Documentation Date Start Date Code Code System Note Provider Name and Address Organization Details Recorded Time 93076 codeine medicatio n Not available Not available Not available 08/20/2023 2670 RxNorm ALVARADO DEL CID NP [address] [facility], [address], [place], [address], [facility] 3 10:53:18 Vitals Date Recorded Body height Heart rate Respiratory rate Body temperature Systolic blood pressure Diastolic blood pressure Provider Name and Address Organization Details Last Updated DateTime 4 170.18 cm 80 /min 16 /min 98 [degF] 129 mm[Hg] 78 mm[Hg] TATI CURRIE [address] [facility], [address], [place], [address], [facility] 4 10:52:49 Date Recorded Body height Body temperature Respiratory rate Heart rate Systolic blood pressure Diastolic blood pressure Provider Name and Address Organization Details Last Updated DateTime 4 170.18 cm 97.3 [degF] 18 /min 68 /min 122 mm[Hg] 68 mm[Hg] TATI CURRIE [address] [facility], [address], [place], [address], [facility] 4 14:33:03 Date Recorded Body height Heart rate Respiratory rate Body temperature Systolic blood pressure Diastolic blood pressure Provider Name and Address Organization Details Last Updated DateTime 4 170.18 cm 74 /min 18 /min 98 [degF] 132 mm[Hg] 74 mm[Hg] TATI CURRIE [address] [facility], [address], [place], [address], [facility] 4 12:19:44 Date Recorded Body height Body mass index (BMI) Body weight Heart rate Respiratory rate Body temperature Oxygen saturation Oxygen saturation in Arterial blood by Pulse oximetry Systolic blood pressure Diastolic blood pressure Provider Name and Address Organization Details Last Updated DateTime 4 170.18 cm 31.6 kg/m2 80272.6 6 g 79 /min 18 /min 97.4 [degF] 100 % 100 % 141 mm[Hg] 75 mm[Hg] Janee Davis MD [address] [facility], [address], [place], [address], [facility] 4 21:07:19 Date Recorded Body height Heart rate Respiratory rate Body temperature Oxygen saturation Oxygen saturation in Arterial blood by Pulse oximetry Systolic blood pressure Diastolic blood pressure Provider Name and Address Organization Details Last Updated DateTime 4 170.18 cm 79 /min 18 /min 98 [degF] 100 % 100 % 141 mm[Hg] 75 mm[Hg] TATI CURRIE [address] [facility], [address], [place], [address], [facility] 4 14:26:02 Social History Question Answer Notes LastModified by Organizat ion Details LastModified Time Tobacco Smoking Status Never Smoker ALVARADO DEL CID NP [address] [facility], [address], [place], [address], [facility] 08/20/2023 11:16:58 Do You Have An Advance Directive? Yes Information not available 08/20/2023 What Is Your Level Of Alcohol Consumption? None Information not available 08/20/2023 What Is Your Code Status? Full Code Information not available 08/20/2023 Where Do You Live? SingleLevelHouse Lives With Son, 3-4 Steps To Enter Information not available 08/24/2023 Legal Guardian? No Informati on not available 08/24/2023 Do You Have A Medical Power Of Cover Marker? Yes Information not available 08/24/2023 What Was The Date Of Your Most Recent Tobacco Screening? 08/24/2023 Information not available 08/24/2023 Do You Have An Out Of Hospital DNR? No Information not available 08/24/2023 What Is Your Relationship Status? ~ 2011 Information not available 08/24/2023 Do You Use Any Illicit Or Recreational Drugs? No Information not available 08/20/2023 Has Tobacco Cessation Counseling Been Provided? No N/a As Pt Is A Non-smoker Information not available 08/24/2023 Do You Or Have You Ever Used Any Other Forms Of Tobacco Or Nicotine? No Information not available 08/24/2023 Sex: Unknown Functional Status None recorded. Mental Status None recorded. Family History Nothing Reported Notes:n/c Medical History No medical history recorded. Gynecological HistoryNo gynecological history recorded. Obstetrics History GPAL:G 0 P 0 0 0 0 Immunizations Vaccine Type Date Status Note Provider Nam e and Address Organization Details Recorded Time Influenza, adjuvanted, quadrivalent, PF 3 completed Not Available [facility] 09/30/2023 02:47:47 Td(adult) unspecified formulation 1 completed [facility] 12/28/2023 16:20:20 SARS-COV-2 (COVID-19) vaccine, UNSPECIFIED 1 completed [facility] 12/28/2023 16:20:43 SARS-COV-2 (COVID-19) vaccine, UNSPECIFIED 1 completed [facility] 12/28/2023 16:20:50 pneumococcal polysaccharide PPV23 1 completed [facility] 12/28/2023 16:21:57 SARS-COV-2 (COVID-19) vaccine, UNSPECIFIED 1 completed [facility] 12/28/2023 16:22:45 Past Encounters Encounter ID Performer Location Encounter Start Date Encounter Closed Date Diagnosis/Indication Diagnosis SNOMED-CT Code Diagnosis ICD10 Code [id number] ALVARADO DEL CID NP [address] [address] 08/20/2023 09:52:59 08/31/2023 13:27:41 Bacteremia 5205752 R78.81 Type 2 tiara betes mellitus 79607945 E11.9 Chronic ki dney disease 092806357 N18.9 Gastroesop hageal reflux disease without esophagitis 776872217 K21.9 Gout 60992235 M10.9 Hyperlipidemia 36906791 E78.5 Hypothyroidism 34451532 E03.9 Essential hypertension 45419752 I10 [id number] ALVARADO DEL CID NP [address] [address] 08/24/2023 13:44:02 08/25/2023 03:52:21 Type 2 diabetes mellitus 61192322 E11.9 Bacteremia 9044170 R78.8 1 [id number] Janee Davis MD [address] [address] 08/24/2023 15:18:19 08/31/2023 14:10:55 Type 2 diabetes mellitus 78199262 E11.9 Bacteremia 7027142 R78.8 1 Osteomyeli tis of right foot 7411825601 938139 M86.271 Chronic ki dney disease 181414964 N18.32 Gastroesop hageal reflux disease without esophagitis 693625396 K21.9 Gout 48788988 M10.09 Hyperlipidemia 00525502 E78.49 Hypothyroidism 13398419 E03.8 Essential hypertension 41439303 I10 Hypomagnesemia 774810452 E83.42 Vitamin D deficiency 347 34242 E55.9 [id number] SHAE MOSELEY [address] [address] 08/31/2023 11:38:57 09/08/2023 12:37:11 Bacteremia 5472675 R78.81 Type 2 tiara betes mellitus 12000063 E11.9 Chronic ki dney disease 920375202 N18.9 Gastroesop hageal reflux disease without esophagitis 935619454 K21.9 Gout 92922608 M10.9 Hyperlipidemia 98804463 E78.5 Hypothyroidism 27611436 E03.9 Essential hypertension 60886303 I10 [id number] SHAE MOSELEY [address] [address] 09/02/2023 09:40:27 09/08/2023 13:38:51 Bacteremia 2681423 R78.81 Type 2 tiara betes mellitus 58223524 E11.9 Osteomyeli tis of right foot 5184510751 794193 M86.271 Edema of l ower extremity 090685178 R60.0 [id number] SHAE MOSELEY [address] [address] 09/07/2023 13:02:41 09/13/2023 15:17:43 Bacteremia 4679567 R78.81 Type 2 tiara betes mellitus 81582626 E11.9 Osteomyeli tis of right foot 7301321647 865073 M86.271 Edema of l ower extremity 864637934 R60.0 [id number] TATI CURRIE [address] [address] 09/10/2023 06:52:27 09/15/2023 13:31:46 Bacteremia 8157810 R78.81 Type 2 tiara betes mellitus 13158839 E11.9 Osteomyeli tis of right foot 2427108769 999222 M86.271 Edema of l ower extremity 537666025 R60.0 [id number] TATI CURRIE [address] [address] 09/14/2023 07:53:08 09/17/2023 08:57:48 Bacteremia 8475499 R78.81 Type 2 tiara betes mellitus 32216944 E11.9 Osteomyeli tis of right foot 6882626438 682899 M86.271 Edema of l ower extremity 155781784 R60.0 [id number] TATI CURRIE [address] [address] 09/17/2023 08:23:28 09/22/2023 11:50:26 Bacteremia 5094461 R78.81 Type 2 tiara betes mellitus 15394192 E11.9 Osteomyeli tis of right foot 2503103107 032343 M86.271 Edema of l ower extremity 895169693 R60.0 [id number] TATI CURRIE [address] [address] 09/21/2023 07:59:18 09/29/2023 08:59:51 Bacteremia 8995469 R78.81 Type 2 tiara betes mellitus 25340032 E11.9 Osteomyeli tis of right foot 5426384238 974695 M86.271 Edema of l ower extremity 599912584 R60.0 [id number] TATI CURRIE [address] [address] 09/24/2023 12:21:41 09/29/2023 13:31:08 Bacteremia 7292456 R78.81 Type 2 tiara betes mellitus 76521205 E11.9 Chronic ki dney disease 309476014 N18.9 Gastroesop hageal reflux disease without esophagitis 700419409 K21.9 Gout 98611479 M10.9 Hyperlipidemia 57676447 E78.5 Hypothyroidism 92966077 E03.9 Essential hypertension 09144613 I10 Osteomyeli tis of right foot 8817404949 591881 M86.271 Hypomagnesemia 780215490 E83.42 Vitamin D deficiency 347 88649 E55.9 [id number] Janee Davis MD [address] [address] 12/28/2023 15:33:48 01/13/2024 12:52:53 Chronic diastolic heart failure 271575866 I50.32 Paroxysmal atrial fibrillation 840950241 I48.0 Type 2 tiara betes mellitus 07267802 E11.9 Chronic ki dney disease 327090018 N18.32 Essential hypertension 63211654 I10 Gastroesop hageal reflux disease without esophagitis 637429666 K21.9 Gout 80887203 M10.09 Hyperlipidemia 10953827 E78.49 Hypothyroidism 12413078 E03.8 Hypomagnesemia 825529382 E83.42 Vitamin D deficiency 347 37256 E56.8 Anemia 361393472 D64.89 Closed bim alleolar fracture of right ankle 3067780746 8543259 S82.841D [id number] SHAE MOSELEY [employer] [address] [address] 01/03/2024 13:24:31 01/05/2024 10:19:57 Chronic diastolic heart failure 303713177 I50.32 Paroxysmal atrial fibrillation 279311422 I48.0 Type 2 tiara betes mellitus 49900696 E11.9 Essential hypertension 60959820 I10 Open wound of left lower leg 7730759377 8293820 S81.802A [id number] SHAE MOSELEY [address] [address] 01/07/2024 14:10:11 01/10/2024 13:39:22 Open wound of left lower leg 9542302077 6333356 S81.802A Chronic di astolic heart failure 120504657 I50.32 Paroxysmal atrial fibrillation 066088893 I48.0 Type 2 tiara betes mellitus 65328894 E11.9 Essential hypertension 95571001 I10 [id number] SHAERONNA MOSELEY[address] [address] 01/11/2024 10:33:27 01/13/2024 16:16:44 Open wound of left lower leg 3879343409 4582473 S81.802A Chronic di astolic heart failure 182073083 I50.32 Paroxysmal atrial fibrillation 414426403 I48.0 Type 2 tiara betes mellitus 92794972 E11.9 Essential hypertension 17265328 I10 Anemia 616973835 D64.89 [id number] SHAERONNA MOSELEY[address] [address] 01/13/2024 10:07:39 01/25/2024 10:52:36 Open wound of left lower leg 7778912331 3375575 S81.802A Chronic di astolic heart failure 721240353 I50.32 Paroxysmal atrial fibrillation 785333001 I48.0 Type 2 tiara betes mellitus 63392649 E11.9 Essential hypertension 11068403 I10 Anemia 076306275 D64.89 Bimalleola r fracture of ankle 786717720 S82.841A [id number] SHAERONNA MOSELEY [address] [address] 01/20/2024 09:44:29 01/25/2024 11:59:00 Open wound of left lower leg 3280759291 7828586 S81.802A Chronic di astolic heart failure 016767381 I50.32 Paroxysmal atrial fibrillation 279929595 I48.0 Type 2 tiara betes mellitus 44477784 E11.9 Anemia 817789858 D64.89 Bimalleola r fracture of ankle 840412310 S82.841A [id number] SHAERONNA MOSELEY[address] [address] 01/25/2024 10:02:09 01/31/2024 15:51:53 Open wound of left lower leg 3011537923 3792629 S81.802A Chronic di astolic heart failure 369290736 I50.32 Paroxysmal atrial fibrillation 661091799 I48.0 Type 2 tiara betes mellitus 94637475 E11.9 Anemia 199675348 D64.89 Bimalleola r fracture of ankle 841640376 S82.841A [id number] SHAE MOSELEY [address] [address] 01/28/2024 15:29:14 02/01/2024 08:26:24 Open wound of left lower leg 4220576967 4097404 S81.802A Chronic di astolic heart failure 074548241 I50.32 Paroxysmal atrial fibrillation 584484805 I48.0 Type 2 tiara betes mellitus 09352513 E11.9 Anemia 754807701 D64.89 Bimalleola r fracture of ankle 735760306 S82.841A [id number] SHAE MOSELEY [address] [address] 02/01/2024 10:24:39 02/04/2024 08:49:56 Open wound of left lower leg 4608130464 5803984 S81.802A Chronic di astolic heart failure 594058573 I50.32 Paroxysmal atrial fibrillation 140681537 I48.0 Type 2 tiara betes mellitus 28194361 E11.9 Anemia 208803048 D64.89 Bimalleola r fracture of ankle 451543071 S82.841A Chronic ki dney disease 028006931 N18.32 Essential hypertension 46763572 I10 Gout 77425343 M10.09 [id number] SHAE MOSELEY [address] [address] 02/04/2024 09:44:41 02/07/2024 14:37:26 Open wound of left lower leg 2852504503 8706906 S81.802A Chronic di astolic heart failure 154087024 I50.32 Paroxysmal atrial fibrillation 382819399 I48.0 Type 2 tiara betes mellitus 14738846 E11.9 Anemia 254075945 D64.89 Bimalleola r fracture of ankle 598368099 S82.841A Essential hypertension 22139937 I10 [id number] SHAE MOSELEY [address] [address] 02/07/2024 11:53:48 02/09/2024 16:49:24 Open wound of left lower leg 0509801055 1771642 S81.802A Chronic di astolic heart failure 222300098 I50.32 Paroxysmal atrial fibrillation 812753245 I48.0 Type 2 tiara betes mellitus 64862693 E11.9 Anemia 310905048 D64.89 Essential hypertension 63345128 I10 [id number] SHAE MOSELEY [address] [address] 02/10/2024 09:22:17 02/16/2024 10:42:27 Open wound of left lower leg 6404330707 7502586 S81.802A Chronic di astolic heart failure 394449814 I50.32 Paroxysmal atrial fibrillation 294186314 I48.0 Type 2 tiara betes mellitus 09666680 E11.9 Essential hypertension 50504147 I10 [id number] Janee Davis MD [address] [address] 02/14/2024 21:04:27 03/14/2024 07:28:32 Chronic diastolic heart failure 650291245 I50.32 Paroxysmal atrial fibrillation 888163589 I48.0 Type 2 tiara betes mellitus 04300636 E11.9 Essential hypertension 77077760 I10 Stasis brown matitis and venous ulcer of lower extremity due to chronic peripheral venous hypertension 2864480299 42343 I87.332 I87.331 [id number] SHAE MOSELEY [address] [address] 02/18/2024 14:15:05 03/14/2024 07:31:44 Stasis dermatitis and venous ulcer of lower extremity due to chronic peripheral venous hypertension 6538236661 31849 I87.332 I87.331 Essential hypertension 34945091 I10 Chronic di astolic heart failure 759450109 I50.32 Paroxysmal atrial fibrillation 570300684 I48.0 Type 2 tiara betes mellitus 98394466 E11.9 Chronic ki dney disease 396311984 N18.32 Closed bim alleolar fracture of right ankle 2588871675 6857525 S82.841D Gastroesop hageal reflux disease without esophagitis 845034311 K21.9 Gout 70457473 M10.09 Hyperlipidemia 12485709 E78.49 Hypothyroidism 08888211 E03.8 Hypomagnesemia 113045113 E83.42 Vitamin D deficiency 347 89565 E56.8 Anemia 334225737 D64.89 Health Concerns Section Related Observation LastModified by Organization Detai ls LastModified Time None Recorded Concern Status LastModified by Organization Details LastModified Time None Recorded Advance Directives Directive Y: Payers Encounter Date Sequence Insurance Name Policy Number Policy Bravo Covered Member ID Bravo Member ID Guarantor Name 02/04/2024 1 [place] [employer] Susan Douglass Piecuch [id number] 2 Susan Piecuch 02/04/2024 2 [place] [id number] Susan Piecuch [id number] Susan Piecuch 02/07/2024 1 [place] Susan M Piecuch [id number] Susan Piecuch 02/07/2024 2 [place] [id number] Susan Piecuch [id number] Susan Piecuch 02/10/2024 1 [place] [employer] Susan M Piecuch [id number] 2 Susan Piecuch 02/10/2024 2 [place] [id number] Susan Piecuch [id number] Susan Piecuch 02/14/2024 1 [place] Susan M Piecuch [id number] 2 Susan Piecuch 02/14/2024 2 [place] [id number] Susan Piecuch [id number] Susan Piecuch 02/18/2024 1 [place] [employer] [place] Susan M Piecuch [id number] 2 Susan Piecuch 02/18/2024 2 [place] [id number] Susan Piecuch [id number] Susan Piecuch Notes Date Note Type Note Provider Name and Address Organization Details Recorded Time 02/04/2024 text/html This is an 88 yo woman seen today for acute rounding visit. 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 Patient has been in and out of rehabs and hosp since 11/26 when she broke her right ankle, most recently [place] [facility] [place].She initially presented to the [facility] ED on 11/26 after an unknown injury. Found to have an Acute displaced bimalleolar fracture with ankle mortise disruption. Complicated by chronic pain from right foot Charcot arthropathy. She was splinted and instructed in strict NWB status and d/c to [facility]. Of note she had just been dxed with new onset Afib on 11/24 and started on diltiazem and apixaban.Returned to [facility] ED on 12/13, several days after d/c from [facility], because of difficulty ambulating at home and unable to help her due to his own issues. D/C on 12/15 to [facility].Was sent to the [facility] [place] on 12/17 because of SOB and AMS.Labs and vitals were WNL (except Na+147 and BNP 222) CXR showed pulmonary edema with small pleural effusions. Neg for RSV/influenza and covid.EKG showed NSR and she was continued on diltiazem and apixaban.She was txed with IV lasix and K+A left dhillon wound was followed by wound care. She is sitting in wheelchair watching television, she tells me that she is doing ok. there is no acute nursing concerns. TATI CURRIE [address] [facility], [address], [place], [address], [facility] 02/04/2024 11:01:05 02/07/2024 text/html This is an 88 yo woman seen today for acute rounding visit. 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 Patient has been in and out of rehabs and hosp since 11/26 when she broke her right ankle, most recently [place] [facility] [place]F exacerbation.She initially presented to the [facility] ED on 11/26 after an unknown injury. Found to have an Acute displaced bimalleolar fracture with ankle mortise disruption. Complicated by chronic pain from right foot Charcot arthropathy. She was splinted and instructed in strict NWB status and d/c to [facility]. Of note she had just been dxed with new onset Afib on 11/24 and started on diltiazem and apixaban.Returned to [facility] ED on 12/13, several days after d/c from [facility], because of difficulty ambulating at home and unable to help her due to his own issues. D/C on 12/15 to [facility].Was sent to the [facility] [place] on 12/17 because of SOB and AMS.Labs and vitals were WNL (except Na+147 and BNP 222) CXR showed pulmonary edema with small pleural effusions. Neg for RSV/influenza and covid.EKG showed NSR and she was continued on diltiazem and apixaban.She was txed with IV lasix and K+A left dhillon wound was followed by wound care. TATI CURRIE [address] [facility], [address], [place], [address], [employer] 02/07/2024 14:37:38 02/10/2024 text/html This is an 88 yo woman seen today for acute rounding visit.On exam she is stable, offers no new complaints. I returned a call to patient son Kristofer Plan of care discusses with Matt(patient son) he had many concerns about her wound care , he tells me that nursing reports to him that she has been refusing. He states that he thinks his mother gets confused, he did her dressing change the day before it was scheduled, so she refused the next day, there fore she missed another etc. He was updated that her orders are placed per the wound clinic recommendations and DON will be updated and will follow up with his nursing concerns. 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 TATI CURRIE [address] [facility], [address], [place], [id number], [employer] 02/10/2024 12:44:47 02/14/2024 text/html I am seeing this 88 yo woman for an acute visit today to f/u on RLE fx, ulcers and NWB status.Son has had concerns about mother refusing wound care and this is being addressed by nursing staff.She was seen at [place] [facility] [place] [facility] on [place]/06 and it was felt that wounds were healing well.She tells me RLE dressing was changed today (and date on dressing says 02/13, so this confirms that), but they didn't change left. They said they didn't need to. When I check orders I see there is no order for LLE dressing changes.Otherwise she says she is doing well and looking forward to seeing ortho to discuss possible surgery.She plans to go home as soon as she is able to transfer independently. 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 Janee Davis MD [address] [place] [address], [address], [place], [id number], [employer] 03/11/2024 19:10:29 02/18/2024 text/html This is an 88 yo woman due for discharge today. Patient has been in and out of rehabs and hosp since 11/26 when she broke her right ankle, most recently at [facility] for a CHF exacerbation.She initially presented to the [facility] ED on 11/26 after an unknown injury. Found to have a right Acute displaced bimalleolar fracture with ankle mortise disruption. Complicated by chronic pain from right foot Charcot arthropathy. She was splinted and instructed in strict NWB status and d/c to [facility]. Of note she had just been dxed with new onset Afib on 11/24 and started on diltiazem and apixaban.Returned to [facility] ED on 12/13, several days after d/c from [facility], because of difficulty ambulating at home and unable to help her due to his own issues. D/C on 12/15 to [facility].Was sent to the [facility] on 12/17 because of SOB and AMS.Labs and vitals were WNL (except Na+147 and BNP 222) CXR showed pulmonary edema with small pleural effusions. Neg for RSV/influenza and covid.EKG showed NSR and she was continued on diltiazem and apixaban.She was txed with IV lasix and K+A left dhillon wound was followed by wound care.She was transferred to [facility] on [facility] was done on 12/23 and showed The left ventricular systolic function is mildly decreased. The visually estimated ejection fraction is between 45-50%. Possible basal inferior hypokinesis. No obvious valvular pathology seen on this study. 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 TATI CURRIE [address] [facility], [address], [place], [id number], [facility] [employer] 02/18/2024 14:26:35 OBGyn Episode No OBEpisode recorded.
== END 2024-08-01 11:13 | disposition home or self-care (01) ==
LOC: HO.LAB 11:12
PROVIDERS: PCP Internal Medicine; Visit Provider Internal Medicine Medical Oncology
DX: N18.4 Chronic kidney disease, stage 4 (severe) (principal); D63.1 Anemia in chronic kidney disease
CPT/HCPCS: 36415; 85025

== ENCOUNTER 2024-08-07 14:28 | Outpatient (AMB) | payer MEDICARE, SELFPAY ==
--- OUTSIDE RECORDS SUMMARY | 2024-08-07 14:30 | XMS_ITS | Data Portability ---
Author Organization [facility], Main Office Address [address] [place] [address] Care Team Providers Care Technical Specialist Cytology Name Role Phone TISHA MANZO Primary Care Provider [phone] YARA CISNEROS 2ND FLOOR OTHER Assessment Encounter [...] Address Organization Details Recorded Time Bacteremi a 0056896 Active 2022 MSSA foot infection Not Available [facility] 4 02:47:47 Type 2 diabetes mellitus 81808486 Active 2022 Not Available [facility] 4 02:47:47 Hypothyro idism 00097350 Active 2022 Not Available [facility] 4 02:47:47 Chronic kidney disease 549052942 Active 2022 Not Available [facility] 4 02:47:47 Gout 85888359 Active 2022 Not Available [facility] 4 02:47:47 Gastroeso phageal reflux disease without esophagit is 247056740 Active 2022 Not Available [facility] 4 02:47:47 Hyperlipi demia 42141281 Active 2022 Not Available [facility] 4 02:47:47 Essential hypertens ion 46281787 Active 2022 Not Available [facility] 4 02:47:47 Hypomagne semia 978185892 Active 2023 Not Available [facility] 4 02:47:47 Vitamin D deficienc y 02906092 Active 2023 Not Available [facility] 4 02:47:47 Chronic diastolic heart failure 993161220 Active 2023 Janee Davis MD [address] [facility], [facility] [address], [place], [address] , [employer] 4 10:48:17 Anemia 979806470 Active 2023 Janee Davis MD [address] [facility], [address], [place], [address] , [employer] 4 11:10:38 Bimalleol ar fracture of ankle 645142221 Active 2023 TATI CURRIE [address] [facility], [address], [place], [address] , [employer] 4 14:06:55 Stasis dermatiti s and 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 Please review this document and add these problems to the patient's chart manually as needed. Problem Notes None recorded. Medical Equipment None Reported. Allergies Allergen ID Allergen Name Allergen Category Reaction Reaction Severity Criticality Documentation Date Start Date Code Code System Note Provider Name and Address Organization Details Recorded Time 60889 codeine medicatio n Not available Not available Not available 08/20/2023 2670 RxNorm ALVARADO DEL CID NP [address] [facility], [address], [place], [address], [employer] 3 10:53:18 Vitals Date Recorded Body height Heart rate Respiratory rate Body temperature Systolic blood pressure Diastolic blood pressure Provider Name and Address Organization Details Last Updated DateTime 4 170.18 cm 80 /min 16 /min 98 [degF] 129 mm[Hg] 78 mm[Hg] TATI CURRIE [address] [facility], [address], [place], [address], [employer] [facility] 4 10:52:49 Date Recorded Body height Body temperature Respiratory rate Heart rate Systolic blood pressure Diastolic blood pressure Provider Name and Address Organization Details Last Updated DateTime 4 170.18 cm 97.3 [degF] 18 /min 68 /min 122 mm[Hg] 68 mm[Hg] TATI CURRIE [address] [facility], [address], [place], [address], [facility] 4 14:33:03 Date Recorded Body height Heart rate Respiratory rate Body temperature Systolic blood pressure Diastolic blood pressure Provider Name and Address Organization Details Last Updated DateTime 4 170.18 cm 74 /min 18 /min 98 [degF] 132 mm[Hg] 74 mm[Hg] TATI CURRIE [address] [facility], [address], [place], [address], [employer] [facility] 4 12:19:44 Date Recorded Body height Body mass index (BMI) Body weight Heart rate Respiratory rate Body temperature Oxygen saturation Oxygen saturation in Arterial blood by Pulse oximetry Systolic blood pressure Diastolic blood pressure Provider Name and Address Organization Details Last Updated DateTime 4 170.18 cm 31.6 kg/m2 54287.6 6 g 79 /min 18 /min 97.4 [degF] 100 % 100 % 141 mm[Hg] 75 mm[Hg] Janee Davis MD [address] [facility], [address], [place], [address], [employer] 4 21:07:19 Date Recorded Body height Heart rate Respiratory rate Body temperature Oxygen saturation Oxygen saturation in Arterial blood by Pulse oximetry Systolic blood pressure Diastolic blood pressure Provider Name and Address Organization Details Last Updated DateTime 4 170.18 cm 79 /min 18 /min 98 [degF] 100 % 100 % 141 mm[Hg] 75 mm[Hg] TATI CURRIE [address] [facility], [address], [place], [address], [employer] 4 14:26:02 Social History Question Answer Notes LastModified by Organizat ion Details LastModified Time Tobacco Smoking Status Never Smoker ALVARADO DEL CID NP [address] [facility], [address], [place], [address], [employer] 08/20/2023 11:16:58 Do You Have An Advance [...] Do You Have A Medical Power Of Manager Of Case Management? Yes Information not available 08/24/2023 What Was [...] adjuvanted, quadrivalent, PF 3 completed Not Available [facility] 09/30/2023 02:47:47 Td(adult) unspecified formulation 1 completed [facility] 12/28/2023 16:20:20 SARS-COV-2 (COVID-19) vaccine, UNSPECIFIED 1 completed [facility] 12/28/2023 16:20:43 SARS-COV-2 (COVID-19) vaccine, UNSPECIFIED 1 [facility] 16:20:50 pneumococcal polysaccharide PPV23 1 completed [facility] 12/28/2023 16:21:57 SARS-COV-2 (COVID-19) vaccine, UNSPECIFIED 1 completed [facility] 12/28/2023 16:22:45 Past Encounters Encounter ID Performer Location Encounter Start Date Encounter Closed Date Diagnosis/Indication Diagnosis SNOMED-CT Code Diagnosis ICD10 Code [id number] ALVARADO DEL CID NP [address] [address] 08/20/2023 09:52:59 08/31/2023 13:27:41 Bacteremia 3319389 R78.81 Type 2 tiara betes mellitus 69735703 E11.9 Chronic ki dney disease 837720693 N18.9 Gastroesop hageal reflux disease without esophagitis 328616985 K21.9 Gout 20048522 M10.9 Hyperlipidemia 20934270 E78.5 Hypothyroidism 25665474 E03.9 Essential hypertension 74075761 I10 [id number] ALVARADO DEL CID NP [address] [address] 08/24/2023 13:44:02 08/25/2023 03:52:21 Type 2 diabetes mellitus 66233094 E11.9 Bacteremia 6916308 R78.8 1 [id number] Janee Davis MD [address] [address] 08/24/2023 15:18:19 08/31/2023 14:10:55 Type 2 diabetes mellitus 68542478 E11.9 Bacteremia 1122079 R78.8 1 Osteomyeli tis of right foot 4079043989 208498 M86.271 Chronic ki dney disease 358240537 N18.32 Gastroesop hageal reflux disease without esophagitis 490273873 K21.9 Gout 08520831 M10.09 Hyperlipidemia 02716549 E78.49 Hypothyroidism 30960838 E03.8 Essential hypertension 26685022 I10 Hypomagnesemia 522129564 E83.42 Vitamin D deficiency 347 91820 E55.9 [id number] SHAE MOSELEY [address] [address] 08/31/2023 11:38:57 09/08/2023 12:37:11 Bacteremia 8748591 R78.81 Type 2 tiara betes mellitus 18655106 E11.9 Chronic ki dney disease 521641441 N18.9 Gastroesop hageal reflux disease without esophagitis 399477052 K21.9 Gout 58052541 M10.9 Hyperlipidemia 39902825 E78.5 Hypothyroidism 17007407 E03.9 Essential hypertension 22269322 I10 [id number] SHAE MOSELEY [address] [address] 09/02/2023 09:40:27 09/08/2023 13:38:51 Bacteremia 7904999 R78.81 Type 2 tiara betes mellitus 11198728 E11.9 Osteomyeli tis of right foot 7865671840 315244 M86.271 Edema of l ower extremity 536292369 R60.0 [id number] SHAE MOSELEY [address] [address] 09/07/2023 13:02:41 09/13/2023 15:17:43 Bacteremia 8830512 R78.81 Type 2 tiara betes mellitus 68199328 E11.9 Osteomyeli tis of right foot 4743690467 551240 M86.271 Edema of l ower extremity 930078088 R60.0 [id number] TATI CURRIE [address] [address] 09/10/2023 06:52:27 09/15/2023 13:31:46 Bacteremia 5918238 R78.81 Type 2 tiara betes mellitus 33095208 E11.9 Osteomyeli tis of right foot 0660898042 441339 M86.271 Edema of l ower extremity 544829529 R60.0 [id number] TATI CURRIE [address] [address] 09/14/2023 07:53:08 09/17/2023 08:57:48 Bacteremia 9341501 R78.81 Type 2 tiara betes mellitus 05865159 E11.9 Osteomyeli tis of right foot 5972370304 117728 M86.271 Edema of l ower extremity 934527612 R60.0 [id number] TATI CURRIE [address] [address] 09/17/2023 08:23:28 09/22/2023 11:50:26 Bacteremia 1533279 R78.81 Type 2 tiara betes mellitus 81426236 E11.9 Osteomyeli tis of right foot 4025623307 669255 M86.271 Edema of l ower extremity 212163742 R60.0 [id number] TATI CURRIE [address] [address] 09/21/2023 07:59:18 09/29/2023 08:59:51 Bacteremia 2749517 R78.81 Type 2 tiara betes mellitus 00879913 E11.9 Osteomyeli tis of right foot 6889555802 512898 M86.271 Edema of l ower extremity 345680125 R60.0 [id number] TATI CURRIE [address] [address] 09/24/2023 12:21:41 09/29/2023 13:31:08 Bacteremia 9681712 R78.81 Type 2 tiara betes mellitus 85528047 E11.9 Chronic ki dney disease 193341915 N18.9 Gastroesop hageal reflux disease without esophagitis 777810441 K21.9 Gout 88423011 M10.9 Hyperlipidemia 27697299 E78.5 Hypothyroidism 89696081 E03.9 Essential hypertension 40766143 I10 Osteomyeli tis of right foot 2567210828 760676 M86.271 Hypomagnesemia 379269924 E83.42 Vitamin D deficiency 347 13990 E55.9 [id number] Janee Davis MD [address] [address] 12/28/2023 15:33:48 01/13/2024 12:52:53 Chronic diastolic heart failure 960649267 I50.32 Paroxysmal atrial fibrillation 708126786 I48.0 Type 2 tiara betes mellitus 58909767 E11.9 Chronic ki dney disease 717549590 N18.32 Essential hypertension 12662348 I10 Gastroesop hageal reflux disease without esophagitis 501225771 K21.9 Gout 17258673 M10.09 Hyperlipidemia 03944125 E78.49 Hypothyroidism 28689643 E03.8 Hypomagnesemia 278272213 E83.42 Vitamin D deficiency 347 47081 E56.8 Anemia 888056166 D64.89 Closed bim alleolar fracture of right ankle 1634287925 0798740 S82.841D [id number] SHAE MOSELEY [employer] [address] [address] 01/03/2024 13:24:31 01/05/2024 10:19:57 Chronic diastolic heart failure 563759250 I50.32 Paroxysmal atrial fibrillation 135427192 I48.0 Type 2 tiara betes mellitus 48650591 E11.9 Essential hypertension 13502945 I10 Open wound of left lower leg 9201090598 8513089 S81.802A [id number] SHAE MOSELEY [address] [address] 01/07/2024 14:10:11 01/10/2024 13:39:22 Open wound of left lower leg 5878632056 9426477 S81.802A Chronic di astolic heart failure 802887159 I50.32 Paroxysmal atrial fibrillation 939448153 I48.0 Type 2 tiara betes mellitus 25958370 E11.9 Essential hypertension 18889383 I10 [id number] SHAERONNA MOSELEY[address] [address] 01/11/2024 10:33:27 01/13/2024 16:16:44 Open wound of left lower leg 2752723661 0540798 S81.802A Chronic di astolic heart failure 803323567 I50.32 Paroxysmal atrial fibrillation 547603808 I48.0 Type 2 tiara betes mellitus 83028556 E11.9 Essential hypertension 93695822 I10 Anemia 809027071 D64.89 [id number] SHAERONNA MOSELEY[address] [address] 01/13/2024 10:07:39 01/25/2024 10:52:36 Open wound of left lower leg 6175167039 0797522 S81.802A Chronic di astolic heart failure 565206323 I50.32 Paroxysmal atrial fibrillation 849941916 I48.0 Type 2 tiara betes mellitus 45581189 E11.9 Essential hypertension 79197741 I10 Anemia 385608957 D64.89 Bimalleola r fracture of ankle 487581397 S82.841A [id number] SHAERONNA MOSELEY [address] [address] 01/20/2024 09:44:29 01/25/2024 11:59:00 Open wound of left lower leg 5512019538 5324584 S81.802A Chronic di astolic heart failure 286481554 I50.32 Paroxysmal atrial fibrillation 641142026 I48.0 Type 2 taira betes mellitus 84027462 E11.9 Anemia 700117483 D64.89 Bimalleola r fracture of ankle 462894749 S82.841A [id number] SHAERONNA MOSELEY[address] [address] 01/25/2024 10:02:09 01/31/2024 15:51:53 Open wound of left lower leg 6831674831 8524565 S81.802A Chronic di astolic heart failure 268154254 I50.32 Paroxysmal atrial fibrillation 632147982 I48.0 Type 2 tiara betes mellitus 93183915 E11.9 Anemia 848357401 D64.89 Bimalleola r fracture of ankle 333772571 S82.841A [id number] SHAE MOSELEY [address] [address] 01/28/2024 15:29:14 02/01/2024 08:26:24 Open wound of left lower leg 7656765173 4868280 S81.802A Chronic di astolic heart failure 167749842 I50.32 Paroxysmal atrial fibrillation 157850490 I48.0 Type 2 tiara betes mellitus 63897693 E11.9 Anemia 966806392 D64.89 Bimalleola r fracture of ankle 439147014 S82.841A [id number] SHAE MOSELEY [address] [address] 02/01/2024 10:24:39 02/04/2024 08:49:56 Open wound of left lower leg 0902017815 8720834 S81.802A Chronic di astolic heart failure 349942695 I50.32 Paroxysmal atrial fibrillation 969163465 I48.0 Type 2 tiara betes mellitus 07308417 E11.9 Anemia 303776168 D64.89 Bimalleola r fracture of ankle 418242783 S82.841A Chronic ki dney disease 119971996 N18.32 Essential hypertension 22150905 I10 Gout 76489301 M10.09 [id number] SHAE MOSELEY [address] [address] 02/04/2024 09:44:41 02/07/2024 14:37:26 Open wound of left lower leg 8591135648 7056583 S81.802A Chronic di astolic heart failure 759738670 I50.32 Paroxysmal atrial fibrillation 310680203 I48.0 Type 2 tiara betes mellitus 98104935 E11.9 Anemia 671123205 D64.89 Bimalleola r fracture of ankle 718835516 S82.841A Essential hypertension 08769259 I10 [id number] SHAE MOSELEY [address] [address] 02/07/2024 11:53:48 02/09/2024 16:49:24 Open wound of left lower leg 9963089543 4689244 S81.802A Chronic di astolic heart failure 185049287 I50.32 Paroxysmal atrial fibrillation 749710508 I48.0 Type 2 tiara betes mellitus 05308017 E11.9 Anemia 941419147 D64.89 Essential hypertension 02577450 I10 [id number] SHAE MOSELEY [address] [address] 02/10/2024 09:22:17 02/16/2024 10:42:27 Open wound of left lower leg 1140276443 1031977 S81.802A Chronic di astolic heart failure 289619393 I50.32 Paroxysmal atrial fibrillation 746826588 I48.0 Type 2 tiara betes mellitus 49064923 E11.9 Essential hypertension 96521239 I10 [id number] Janee Davis MD [address] [address] 02/14/2024 21:04:27 03/14/2024 07:28:32 Chronic diastolic heart failure 763974913 I50.32 Paroxysmal atrial fibrillation 090649460 I48.0 Type 2 tiara betes mellitus 05743497 E11.9 Essential hypertension 60699648 I10 Stasis brown matitis and venous ulcer of lower extremity due to chronic peripheral venous hypertension 2485868558 87710 I87.332 I87.331 [id number] SHAE MOSELEY [address] [address] 02/18/2024 14:15:05 03/14/2024 07:31:44 Stasis dermatitis and venous ulcer of lower extremity due to chronic peripheral venous hypertension 5662445238 78922 I87.332 I87.331 Essential hypertension 51421000 I10 Chronic di astolic heart failure 999985521 I50.32 Paroxysmal atrial fibrillation 008226080 I48.0 Type 2 tiara betes mellitus 32000427 E11.9 Chronic ki dney disease 632193430 N18.32 Closed bim alleolar fracture of right ankle 5134965535 3661414 S82.841D Gastroesop hageal reflux disease without esophagitis 451828626 K21.9 Gout 23697006 M10.09 Hyperlipidemia 36429299 E78.49 Hypothyroidism 88283447 E03.8 Hypomagnesemia 442624991 E83.42 Vitamin D deficiency 347 28180 E56.8 Anemia 642752849 D64.89 Health Concerns Section Related Observation LastModified by Organization Detai ls LastModified Time None Recorded Concern Status LastModified by Organization Details LastModified Time None Recorded Advance Directives Directive Y: Payers Encounter Date Sequence Insurance Name Policy Number Policy Bravo Covered Member ID Bravo Member ID Guarantor Name 02/04/2024 1 [place] [employer] Susan Douglass Piecuch [id number] 2 Susan Piecuch 02/04/2024 2 [place] [id number] Susan Piecuch [id number] Susan Piecuch 02/07/2024 1 [place] Susan M Piecuch [id number] 2 Susan Piecuch 02/07/2024 2 [place] [id number] Susan Piecuch [id number] Susan Piecuch 02/10/2024 1 [place] [employer] Susan M Piecuch [id number] 2 Susan Piecuch 02/10/2024 2 [place] [id number] Susan Piecuch [id number] Susan Piecuch 02/14/2024 1 [place] [employer] Susan M Piecuch [id number] 2 Susan Piecuch 02/14/2024 2 [place] [id number] Susan Piecuch [id number] Susan Piecuch 02/18/2024 1 [place] [employer] Susan M Piecuch [id number] 2 Susan Piecuch 02/18/2024 2 [place] [id number] Susan Piecuch [id number] Susan Piecuch Notes Date Note Type [...] broke her right ankle, most recently at [facility] for a CHF exacerbation.She initially presented to the [facility] ED on 11/26 after an unknown injury. Found to have an Acute displaced bimalleolar fracture with ankle mortise disruption. Complicated by chronic pain from right foot Charcot arthropathy. She was splinted and instructed in strict NWB status and d/c to [facility]. Of note she had just been dxed with new onset Afib on 11/24 and started on diltiazem and apixaban.Returned to [facility] ED on 12/13, several days after d/c from [facility], because of difficulty ambulating at home and unable to help her due to his own issues. D/C on 12/15 to [facility].Was sent to the [facility] ED on 12/17 because of SOB and [...] no acute nursing concerns. TATI CURRIE [address] [facility], [address], [place], [address], [facility] 02/04/2024 11:01:05 02/07/2024 text/html This is an 88 yo woman seen today for acute rounding visit. 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 Patient has been in and out of rehabs and hosp since 11/26 when she broke her right ankle, most recently at [facility] for a CHF exacerbation.She initially presented to the [facility] ED on 11/26 after an unknown injury. Found to have an Acute displaced bimalleolar fracture with ankle mortise disruption. Complicated by chronic pain from right foot Charcot arthropathy. She was splinted and instructed in strict NWB status and d/c to [facility]. Of note she had just been dxed with new onset Afib on 11/24 and started on diltiazem and apixaban.Returned to [facility] ED on 12/13, several days after d/c from [facility], because of difficulty ambulating at home and unable to help her due to his own issues. [facility]Was sent to the [facility] ED on 12/17 because of SOB and AMS.Labs and vitals were WNL (except Na+147 and BNP 222) CXR showed pulmonary edema with small pleural effusions. Neg for RSV/influenza and covid.EKG showed NSR and she was continued on diltiazem and apixaban.She was txed with IV lasix and K+A left dhillon wound was followed by wound care. TATI CURRIE [address] [facility], [address], [place], [address], [employer] 02/07/2024 14:37:38 02/10/2024 text/html This is an [...] and s/p MSSA sepsis. TATI CURRIE [address] [facility], [address], [place], [address], [employer] 02/10/2024 12:44:47 02/14/2024 text/html I am seeing this 88 yo woman for an acute visit today to f/u on RLE fx, ulcers and NWB status.Son has had concerns about mother refusing wound care and this is being addressed by nursing staff.She was seen at the [facility] wound clinic on 02/06 and it was [...] and s/p MSSA sepsis. Janee Davis MD [address] [place] [address], [address], [place], [address], [employer] 03/11/2024 19:10:29 02/18/2024 text/html This is an 88 yo woman due for discharge today. Patient has been in and out of rehabs and hosp since 11/26 when she broke her right ankle, most recently at [facility] for a CHF exacerbation.She initially presented to the [facility] ED on 11/26 after an unknown injury. Found to have a right Acute displaced bimalleolar fracture with ankle mortise disruption. Complicated by chronic pain from right foot Charcot arthropathy. She was splinted and instructed in strict NWB status and d/c to [facility]. Of note she had just been dxed with new onset Afib on 11/24 and started on diltiazem and apixaban.Returned to [facility] ED on 12/13, several days after d/c from [facility], because of difficulty ambulating at home and unable to help her due to his own issues. D/C on 12/15 to [facility].Was sent to the [facility] ED on 12/17 because of SOB and AMS.Labs and vitals were WNL (except Na+147 and BNP 222) CXR showed pulmonary edema with small pleural effusions. Neg for RSV/influenza and covid.EKG showed NSR and she was continued on diltiazem and apixaban.She was txed with IV lasix and K+A left dhillon wound was followed by wound care.She was transferred to [facility] on cho was done on 12/23 [...] and s/p MSSA sepsis. TATI CURRIE [address] [facility], [address], [place], [address], [facility] [employer] 02/18/2024 14:26:35 OBGyn Episode No OBEpisode recorded.
--- NOTE | 2024-08-07 14:44 | MHC.OFFVIS ---
Vital Signs 08/07/24 14:57 BP 134/62 Blood Pressure Location Rt brachial Position Sitting Pulse 88 Pulse Source Pulse Oximeter Intake Visit Reasons: 4 mth fu with DC Magnetic Tape Winder Required: No Shipping Point Inspector: Shipping Point Inspector Present Allergies codeine [CODEINE] Allergy (Intermediate, Verified 06/14/24 14:19) BACK PAIN pollen extracts [POLLEN] Allergy (Mild, Verified 06/14/24 14:19) SINUS IRRITATION metoprolol Adverse Reaction (Intermediate, Verified 06/14/24 14:19) Hallucinations Medication List - Last Reconciled 08/07/24 by BONITA Easton acetaminophen 500 mg PO Q4H PRN allopurinol 100 mg PO DAILY ammonium lactate 12% 1 appl topical .QOD PRN apixaban (Eliquis) 2.5 mg PO BID blood sugar diagnostic (Accu-Chek Radha Plus test strips) USE DIRECTED TO TEST BLOOD SUAGR THREE TIMES DAILY chair, wheel (Wheel chair) As directed chair, wheel (Wheel chair) As directed diabetic supplies, miscellan. DIABETIC SHOES WITH 3 INSERTS diltiazem HCl CD 120 mg PO DAILY epoetin jayna (Procrit) 40,000 units subcut 3XW ergocalciferol (vitamin D2) 1,250 mcg PO Q14D fenofibrate 160 mg PO DAILY [hEEL PROTECTOR CUSHION [place] t for pressure ulcer/FX right ankle t for pressure As directed] hydralazine 25 mg PO BID 90 days insulin NPH and regular human 100 unit/mL (70-30) 20 units subcut BID@0800,2000 insulin NPH and regular human 100 unit/mL (70-30) (Humulin 70/30 U-100 KwikPen) 20 units (0.2 mL) subcut BID lancets (Microlet Lancet) USE DIRECTED TO CHECK BLOOD GLUCOSE THREE TIMES DAILY nystatin 1 appl topical TID off loading boot As directed omeprazole 20 mg PO DAILY@0630 pen needle, diabetic (Ultra-Thin II Insulin Pen [place]) As directed walker (Ultra-Light Rollator misc) To use daily HPI HPI 4 mth fu with DC: Details: Susan is an 88-year-old female with past medical history of obesity, chronic kidney disease, hypertension, hyperlipidemia, diabetes, persistent atrial fibrillation, mild cardiomyopathy, recent abnormal nuclear stress test who recently underwent orthopedic right foot reconstruction surgery without any known cardiac complications. She now presents for follow-up. Today she reports that she has been doing very well since her surgery. She no longer has a cast on her right lower extremity. She is using orthopedic walking boot and is able to take some steps using a walker in her home. She does have physical therapy. She has not had any cardiac complaints. No chest discomfort at rest or with activity. No heart palpitations, lightheadedness, presyncope, syncope, falls. No shortness of breath, PND, orthopnea or edema. She is mostly sedentary. She is taking meds as directed. No bleeding issues reported. Her son is present. [facility] Medical History Hyperlipidemia CKD (chronic kidney disease) stage 4, GFR 15-29 ml/min Atrial fibrillation Osteomyelitis Gout Anemia Hx of type A viral hepatitis Obesity Diabetes mellitus Surgical History History of surgical removal of skin lesion History of biopsy History of excision of lesion H/O varicose vein ligation History of cholecystectomy Family History Father Gastric cancer Mother Acute CVA (cerebrovascular accident) Diabetes Brother Colon cancer Social History Household Members: Children Housing: House Do you presently have visiting nurse or other home services: Yes Alcohol intake: never Patient Tobacco Use Status: Never used Tobacco e-Cigarette/Vaping Use: Never Used Second Hand Smoke Exposure: No service: No Current occupational status: retired Cognitive needs: Yes (walker ) Hearing needs: No Vision needs: Yes Review of Systems Const All systems reviewed & are unremarkable except as noted in HPI and below ENT Denies dizziness Card Denies chest pain, Denies chest pain at rest, Denies chest pain with activity, Denies rapid heart rate, Denies pedal edema, Denies edema, Denies leg edema, Denies lightheadedness, Denies palpitations, Denies dyspnea, Denies dyspnea on exertion and Denies orthopnea Resp Denies cough, Denies dyspnea and Denies dyspnea on exertion GI Denies hematochezia and Denies change in stool character Musc Reports abnormal gait, Reports limited range of motion (Orthopedic boot on right foot), Denies muscle cramps, Denies muscle weakness, Denies numbness, Denies radiating pain into limb, Denies stiffness and Denies tingling Neuro Reports abnormal gait, Denies dizziness, Denies numbness and Denies tingling Endo Denies palpitations Physical Exam Vital Signs: Last Vital Signs Pulse 88 08/07/24 14:57 BP 134/62 08/07/24 14:57 Const Other: sitting in wheelchair - has orthopedic boot on right foot. States she can take a few steps with walker. General: comfortable and no acute distress Orientation/consciousness: patient oriented x3 Neck Neck: Yes normal visual inspection Resp Effort & Inspection: normal respiratory effort Auscultation: clear to auscultation bilaterally, no rales, no rhonchi and no wheezes Cardio Jugular venous distension: no JVD Rate: regular rate Rhythm: abnormal rhythm Heart sounds: S1 normal heart sound present, S2 normal heart sound present, no murmurs and no rubs Neuro General: patient oriented x3 Extrem Other: Left lower extremity with firm skin, tight edema from knee down, left lower extremity with orthopedic boot on. Psych Appearance: grossly normal Mental Status: mental status grossly normal Speech and movement: Normal speech and movement present Assessment & Plan Assessment & Plan (1) Atrial fibrillation: Code(s): I48.91 - Unspecified atrial fibrillation Category: Medical Plan: History of persistent Atrial fibrillation. A Holter monitor was done on 12/24/2023 for 3 days shows atrial fibrillation with average heart rate 76, PVCs 2.4% of time, brief an SVT runs with longest 5 beats. Echocardiogram done 12/24/2023 shows EF 45-50%, basal inferior hypokinesis. Previous echo from 2020 showed normal EF. EKG done last visit showed atrial fibrillation, rate 93. She denies any recent heart palpitations. She has been on diltiazem for heart rate control. She is not on metoprolol since she reports it gave her hallucinations in the past. Will continue the diltiazem as EF is only mildly reduced. She is on Eliquis 2.5 mg b.i.d. That dose is appropriate for her age and kidney function. Last labs done on 02/22/2024 showed creatinine 2.11, which is on the higher side for her. She does have known chronic kidney disease and follows with Nephrology. (2) CHF (congestive heart failure): Code(s): I50.9 - Heart failure, unspecified Category: Medical Plan: In November 2023 she was admitted to [facility] with the fracture of her right ankle. She was then sent to rehab and her son reports that she was getting short of breath, confused and hallucinating. He brought her then to [facility] where she was found to have mild Congestive heart failure, hypernatremia, hypokalemia. She was managed accordingly and discharged to rehab with Lasix 40 mg daily. Echocardiogram as above with mildly reduced EF. Today she reports that her breathing is comfortable. She does not appear grossly fluid overloaded on exam. She is obese and in a wheelchair, making the assessment more challenging. Continue current Lasix. Will update labs. Signs and symptoms of heart failure reviewed with her. (3) CKD (chronic kidney disease) stage 4, GFR 15-29 ml/min: Code(s): N18.4 - Chronic kidney disease, stage 4 (severe) Category: Medical Plan: As above (4) Cardiomyopathy: Code(s): I42.9 - Cardiomyopathy, unspecified Category: Medical Plan: Mild cardiomyopathy as above. A nuclear stress test was done on showed mixed ischemia/infarct pattern in the apex and adjacent parts of the anterior septum and inferior wall, nontransmural infarct pattern in the basal part of the inferior wall and adjacent inferior septum. She has no reports of anginal sounding symptoms. She is mostly sedentary. She did undergo orthopedic surgery recently without any known cardiac complications. Signs and symptoms of angina reviewed with her. She is not on aspirin as she is on Eliquis. She is on diltiazem. She reports hallucinations with beta-king. She is not on Anand or Arb due to CKD. She is on hydralazine to help with blood pressure control. She is on Lasix 40 mg daily. She is not on statin for unclear reason. Will be checking CMP and lipids. (5) Abnormal nuclear stress test: Code(s): R94.39 - Abnormal result of other cardiovascular function study Category: Medical Plan: As above Plan Time spent on chart review, documentation, interview and assessment Orders: Orders Comprehensive [place]. Panel Fast Today R94.39 - Abnormal result of other cardiovascular function study Lipid Panel Today R94.39 - Abnormal result of other cardiovascular function study Coding Level of Care Code Est Pt Level 4 (96468) Complex EM visit Add On G2211 Diagnoses Atrial fibrillation I48.91 CHF (congestive heart failure) I50.9 CKD (chronic kidney disease) stage 4, GFR 15-29 ml/min N18.4 Cardiomyopathy I42.9 Abnormal nuclear stress test R94.39 Time Spent (min) 30
[2024-08-07 14:57] VITALS: BP 134/62; PULSE 88
== END 2024-08-07 15:24 | disposition home or self-care (01) ==
PROVIDERS: PCP Internal Medicine; Visit Provider Nurse Practitioner Family
DX: I48.91 Unspecified atrial fibrillation (principal); I50.9 Heart failure, unspecified; N18.4 Chronic kidney disease, stage 4 (severe); I42.9 Cardiomyopathy, unspecified; R94.39 Abnormal result of other cardiovascular function study
CPT/HCPCS: 99214; G2211

== ENCOUNTER → 2024-08-07 14:28 | Outpatient (BNVA) | payer MEDICARE, SELFPAY | PROVIDERS: PCP Internal Medicine; Visit Provider Nurse Practitioner Family | DX: I13.0 Hypertensive heart and chronic kidney disease with heart failure and stage 1 through stage 4 chronic kidney disease, or unspecified chronic kidney disease (principal); I48.19 Other persistent atrial fibrillation; I42.9 Cardiomyopathy, unspecified; I50.9 Heart failure, unspecified; N18.4 Chronic kidney disease, stage 4 (severe); E66.9 Obesity, unspecified; R94.39 Abnormal result of other cardiovascular function study; Z79.01 Long term (current) use of anticoagulants; Z79.899 Other long term (current) drug therapy | CPT/HCPCS: 99212 ==

== ENCOUNTER 2024-08-29 11:39 | Outpatient (REF) | payer MEDICARE, OTHER, SELFPAY ==
[2024-08-29 12:06] LABS: MANUAL DIFF FLAG NO
[2024-08-29 12:13] LABS: Basophils Absolute Auto 0.1 X10*3/uL (0.0-0.2); Basophils Percent Auto 0.7 % (0-2); Eosinophils Absolute Auto 0.3 X10*3/uL (0.0-0.4); Eosinophils Percent Auto 3.8 % (0-4); Hematocrit 30.1 % (37.0-47.0); Hemoglobin 9.5 g/dl (12.0-16.0); Imm Gran Abs Auto 0.03 X10*3/uL (0.00-0.03); Imm Gran Pct Auto 0.4 % (0.0-0.4); Lymphocytes Absolute Auto 1.1 X10*3/uL (1.2-4.9); Lymphocytes Percent Auto 15.6 % (20-40); Mean Corpuscular HGB Conc 31.6 g/dl (31.0-35.0); Mean Corpuscular Hemoglobin 26.4 pg (27.0-33.0); Mean Corpuscular Volume 83.6 fL (80.0-98.0); Mean Platelet Volume 12.2 fL (9.4-12.3); Monocytes Absolute Auto 0.4 X10*3/uL (0.1-1.2); Monocytes Percent Auto 5.1 % (2-11); Neutrophils Absolute Auto 5.1 x10*3/uL (2.0-8.3); Neutrophils Percent Auto 74.4 % (45-73); Platelet Count 259 X10*3/uL (160-400); Red Cell Distribution Width 16.4 % (11.0-16.0); White Blood Count 6.9 X10*3/uL (4.8-10.8)
== END 2024-08-29 11:40 | disposition home or self-care (01) ==
LOC: HO.LAB 11:39
PROVIDERS: PCP Internal Medicine; Visit Provider Internal Medicine Medical Oncology
DX: N18.4 Chronic kidney disease, stage 4 (severe) (principal); D64.9 Anemia, unspecified
CPT/HCPCS: 36415; 85025

== ENCOUNTER 2024-09-05 12:21 | Outpatient (REF) | payer MEDICARE, OTHER, SELFPAY ==
[2024-09-05 12:56] LABS: MANUAL DIFF FLAG NO
[2024-09-05 13:13] LABS: Appearance Urine Clear; Color Urine Yellow; Glucose Urine UA Negative (Negative); Leukocyte Esterase Urine Trace (Negative); Nitrite Urine Negative (Negative); PH 5.5 (5.0-9.0); Specific Gravity - Urine 1.015 (1.005-1.025); UMIC TRIGGER UA YES; Urine Blood Negative (Negative); Urine Ketones Negative (Negative); Urine Protein 300 (3+) mg/dL (Neg-Trace)
[2024-09-05 13:18] LABS: Bacteria Urine 1+ (None Seen); Hyaline Casts Urine 0-2 /LPF (0-2); RBC Urine 0-2 /HPF (0-2)
[2024-09-05 13:43] LABS: Basophils Percent Auto 0.3 % (0-2); Eosinophils Absolute Auto 0.2 X10*3/uL (0.0-0.4); Eosinophils Percent Auto 3.4 % (0-4); Hematocrit 30.3 % (37.0-47.0); Hemoglobin 9.3 g/dl (12.0-16.0); Imm Gran Abs Auto 0.03 X10*3/uL (0.00-0.03); Imm Gran Pct Auto 0.5 % (0.0-0.4); Lymphocytes Absolute Auto 1.1 X10*3/uL (1.2-4.9); Lymphocytes Percent Auto 18.3 % (20-40); Mean Corpuscular HGB Conc 30.7 g/dl (31.0-35.0); Mean Corpuscular Hemoglobin 25.3 pg (27.0-33.0); Mean Corpuscular Volume 82.6 fL (80.0-98.0); Mean Platelet Volume 12.7 fL (9.4-12.3); Monocytes Absolute Auto 0.3 X10*3/uL (0.1-1.2); Monocytes Percent Auto 5.5 % (2-11); Neutrophils Absolute Auto 4.2 x10*3/uL (2.0-8.3); Platelet Count 260 X10*3/uL (160-400); Red Blood Count 3.67 X10*6/uL (4.20-5.50); Red Cell Distribution Width 16.9 % (11.0-16.0); White Blood Count 5.9 X10*3/uL (4.8-10.8)
[2024-09-05 13:45] LABS: Creatinine Urine 54.35 mg/dL
[2024-09-05 14:07] LABS: Albumin Level 3.3 g/dL (3.5-5.0); Anion Gap 13 (12-20); Blood Urea Nitrogen 42 mg/dL (9-16); Calcium 9.5 mg/dL (8.4-10.2); Carbon Dioxide 21 mmol/L (22-29); Chloride 108 mmol/L (96-108); Estimated Glomerular Filt Rate 28; Magnesium 1.7 mg/dL (1.6-2.6); Phosphorus 2.6 mg/dL (2.7-4.5); Sodium 138 mmol/L (135-145)
[2024-09-05 14:32] LABS: Total Protein Urine Random 394 mg/dL (<12)
[2024-09-09 17:29] LABS: VITAMIN D (1,25 OH) D3 8 pg/mL; Vit D (1,25-Dihydroxy) Total 17 pg/mL (18-72); Vitamin D (1,25 OH) D2 9 pg/mL
== END 2024-09-05 12:22 | disposition home or self-care (01) ==
LOC: HO.LAB 12:21
PROVIDERS: PCP Internal Medicine; Visit Provider Internal Medicine Nephrology
DX: E11.22 Type 2 diabetes mellitus with diabetic chronic kidney disease (principal); E11.21 Type 2 diabetes mellitus with diabetic nephropathy; N18.4 Chronic kidney disease, stage 4 (severe); D63.1 Anemia in chronic kidney disease
CPT/HCPCS: 36415; 80051; 81001; 82040; 82310; 82565; 82570; 82652; 83735; 83970; 84100; 84156; 84520; 85025

== ENCOUNTER 2024-09-12 11:28 | Outpatient (REF) | payer MEDICARE, OTHER, SELFPAY ==
[2024-09-12 11:44] LABS: Basophils Absolute Auto 0.1 X10*3/uL (0.0-0.2); Eosinophils Absolute Auto 0.2 X10*3/uL (0.0-0.4); Eosinophils Percent Auto 2.1 % (0-4); Hematocrit 33.8 % (37.0-47.0); Hemoglobin 10.1 g/dl (12.0-16.0); Imm Gran Abs Auto 0.08 X10*3/uL (0.00-0.03); Imm Gran Pct Auto 1.1 % (0.0-0.4); Lymphocytes Absolute Auto 1.4 X10*3/uL (1.2-4.9); Lymphocytes Percent Auto 19.9 % (20-40); MANUAL DIFF FLAG SCAN; Mean Corpuscular HGB Conc 29.9 g/dl (31.0-35.0); Mean Corpuscular Hemoglobin 25.5 pg (27.0-33.0); Mean Corpuscular Volume 85.4 fL (80.0-98.0); Monocytes Absolute Auto 0.4 X10*3/uL (0.1-1.2); Monocytes Percent Auto 5.4 % (2-11); Neutrophils Absolute Auto 4.9 x10*3/uL (2.0-8.3); Neutrophils Percent Auto 70.5 % (45-73); PLT CLUMP 1; Red Blood Count 3.96 X10*6/uL (4.20-5.50); Red Cell Distribution Width 16.9 % (11.0-16.0); SCAN SMEAR FLAG 1
[2024-09-12 12:08] LABS: Mean Platelet Volume 12.7 fL (9.4-12.3); Platelet Count 249 X10*3/uL (160-400)
[2024-09-12 12:09] LABS: SLIDE REVIEW VERIFIED
== END 2024-09-12 11:29 | disposition home or self-care (01) ==
LOC: HO.LAB 11:28
PROVIDERS: PCP Internal Medicine; Visit Provider Internal Medicine Medical Oncology
DX: D64.9 Anemia, unspecified (principal); N18.4 Chronic kidney disease, stage 4 (severe)
CPT/HCPCS: 36415; 85025

== ENCOUNTER 2024-09-14 13:55 | Outpatient (AMB) | payer MEDICARE, SELFPAY ==
--- NOTE | 2024-09-14 14:17 | A.OFFPC_ITS ---
Vital Signs 09/14/24 14:19 Height 5 ft 3 in BMI Reason not done Patient refused/unable BP 120/60 Blood Pressure Location Lt brachial Position Sitting Pulse 75 Pulse Source Pulse Oximeter Temp 96.9 F Temp Source Skin Pulse Oximetry (%) 99 Oxygen Delivery Method Room Air Intake Visit Reasons: 3mth f/u Intake Note: Patient is here to follow up on CKD, DM, CHF. 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: Present Accompanied by: Son Allergies codeine [CODEINE] Allergy (Intermediate, Verified 09/14/24 14:18) BACK PAIN pollen extracts [POLLEN] Allergy (Mild, Verified 09/14/24 14:18) SINUS IRRITATION metoprolol Adverse Reaction (Intermediate, Verified 09/14/24 14:18) Hallucinations Medication List - Last Reconciled 09/15/24 by Christopher Zamudio MD acetaminophen 500 mg PO Q4H PRN allopurinol 100 mg PO DAILY ammonium lactate 12% 1 appl topical .QOD PRN apixaban (Eliquis) 2.5 mg PO BID blood sugar diagnostic (Accu-Chek Radha Plus test strips) USE DIRECTED TO TEST BLOOD SUAGR THREE TIMES DAILY chair, wheel (Wheel chair) As directed chair, wheel (Wheel chair) As directed diabetic supplies, miscellan. DIABETIC SHOES WITH 3 INSERTS diltiazem HCl CD 120 mg PO DAILY epoetin jayna (Procrit) 40,000 units subcut 3XW ergocalciferol (vitamin D2) 1,250 mcg PO Q14D fenofibrate 160 mg PO DAILY [hEEL PROTECTOR CUSHION [place] t for pressure ulcer/FX right ankle t for pressure As directed] hydralazine 25 mg PO BID 90 days insulin NPH and regular human 100 unit/mL (70-30) 20 units subcut BID@0800,2000 insulin NPH and regular human 100 unit/mL (70-30) (Humulin 70/30 U-100 KwikPen) 20 units (0.2 mL) subcut BID lancets (Microlet Lancet) USE DIRECTED TO CHECK BLOOD GLUCOSE THREE TIMES DAILY nystatin 1 appl topical TID off loading boot As directed omeprazole 20 mg PO DAILY@0630 pen needle, diabetic (1st Tier Unifine [place]) As directed 2 times per day walker (Ultra-Light Rollator mis) To use daily Tobacco use date assessed: 09/14/24 Fall risk assessment: No Falls in past year Last assessed Fall Risk: 09/14/24 Dental Screening Dental Screen Date: 09/14/24 Did you have a dental visit in the last 12 months?: No Did you have a dental problem in the last 6 months where you did not have access to dental care?: No Was dental information given to patient?: No HPI 3mth f/u HPI Details DM and afib; stable PFSH Medical History (Updated 08/07/24 @ 17:58 by BONITA Easton) Hyperlipidemia CKD (chronic kidney disease) stage 4, GFR 15-29 ml/min Atrial fibrillation Osteomyelitis Gout Anemia Hx of type A viral hepatitis Obesity Diabetes mellitus Surgical History (Updated 09/14/24 @ 14:26 by JOHNY Llanes) History of foot surgery History of surgical removal of skin lesion History of biopsy History of excision of lesion H/O varicose vein ligation History of cholecystectomy Family History Father Gastric cancer Mother Acute CVA (cerebrovascular accident) Diabetes Brother Colon cancer Social History Household Members: Children Housing: House Do you presently have visiting nurse or other home services: Yes Alcohol intake: never Patient Tobacco Use Status: Never used Tobacco e-Cigarette/Vaping Use: Never Used Second Hand Smoke Exposure: No service: No Current occupational status: retired Cognitive needs: Yes (walker ) Hearing needs: No Vision needs: Yes Questionnaire PHQ-9 Over the last 2 weeks, how often have you been bothered by any of the following problems? 1. Little interest or pleasure in doing things: not at all 2. Feeling down, depressed, or hopeless: not at all 3. Trouble falling or staying asleep, or sleeping too much: not at all 4. Feeling tired or having little energy: not at all 5. Poor appetite or overeating: not at all 6. Feeling bad about yourself - or that you are a failure or have let yourself or your family down: not at all 7. Trouble concentrating on things, such as reading the newspaper or watching television: not at all 8. Moving or speaking so slowly that other people could have noticed. Or the opposite - being so fidgety or restless that you have been moving around a lot more than usual: not at all 9. Thoughts that you would be better off or of hurting yourself in some way: not at all Total score: 0 Depression Screening Interpretation: Negative Depression Screening Done: Yes Source: Developed by Drs. Wilber Ortega, Vickie Briseno, David Calzada and colleagues, with an educational aide from [employer]. Thrive Questionnaire Date Thrive assessed: 09/14/24 I am a: Patient What is your living situation today?: I have a steady place to live Within the past 12 months, did the food you bought not last and you didn't have the money to get more?: Never true Within the past 12 months, did you worry whether your food would run out before you got money to buy more?: Never true Do you have trouble paying for medicines?: No Do you have trouble getting transportation to medical appointments?: No Do you have trouble paying your heating and electricity bill?: No Do you have trouble taking care of your child, family member or friend?: No Do you have trouble with day-to-day activities such as bathing, preparing meals, shopping, managing finances, etc.?: No Are you currently unemployed and looking for a job?: No Are you interested in more education?: No Please select the resources that you would like help with: None Currently or been in a relationship where the following occur: No concerns reported THRIVE Score: 0 AUDIT C Alcohol Use Questionnaire (AUDIT-C) 1. How often do you have a drink containing alcohol?: Never Total Score: 0 IWONA-7 AMB Questionnaire IWONA-7 Date IWONA - 7 assessed: 09/14/24 Feeling nervous, anxious, or on edge: 0 = Not at all Not being able to stop or control worryin = Not at all Worrying too much about different things: 0 = Not at all Trouble relaxin = Not at all Being so restless that it is hard to sit still: 0 = Not at all Becoming easily annoyed or irritable: 0 = Not at all Feeling afraid as if something awful might happen: 0 = Not at all Total IWONA-7 score (0-4 normal; 5-9 mild; 10-14 moderate; 15-21 severe): 0 Source: Developed by Drs. Wilber Ortega, Vickie Briseno, David Calzada and colleagues, with an educational aide from [employer]. Review of Systems Const Denies chills, Denies headache(s) and Denies weight loss ENT Denies headache(s) Card Denies chest pain, Denies syncope, Denies irregular heart rhythm and Denies dyspnea Resp Denies chest congestion, Denies cough and Denies dyspnea GI Denies abdominal pain, Denies change in stool character, Denies nausea and Denies vomiting Musc Denies deformity and Denies joint swelling Neuro Denies syncope and Denies headache(s) Physical exam (Primary Care) Vital Signs: Last Vital Signs Temp 96.9 F 09/14/24 14:19 Pulse 75 09/14/24 14:19 BP 120/60 09/14/24 14:19 Pulse Ox 99 09/14/24 14:19 Oxygen Delivery Method Room Air 09/14/24 14:19 Tobacco/Smoking Status: Tobacco use Status Tobacco use date assessed 09/14/24 09/14/24 14:19 Patient Tobacco Use Status Never used Tobacco 09/14/24 14:19 e-Cigarette/Vaping Use Never Used 09/14/24 14:19 PHQ-9: PHQ-9 Score PHQ-9: Total score 0 09/14/24 14:19 Depression Screening Interpretation: Negative Thrive Assessment: Date of Thrive Assessment Date Thrive assessed 09/14/24 09/14/24 14:19 Currently or been in a relationship where the following occur: No concerns reported Const General: cooperative, comfortable, no acute distress and alert Neck Neck: Yes no lymphadenopathy Thyroid: Thyroid normal Resp Effort & Inspection: normal respiratory effort Auscultation: clear to auscultation bilaterally Percussion: percussion normal Cardio Jugular venous distension: no JVD Palpation: normal PMI Rate: regular rate Rhythm: regular rhythm Heart sounds: S1 normal heart sound present and S2 normal heart sound present GI Inspection: Yes normal to inspection Palpation (GI): No hepatosplenomegaly present Skin General skin exam: no rashes or lesions noted Extrem General: Yes no clubbing, cyanosis or edema Results AMB Hemoglobin A1c AMB Hemoglobin A1c 6.2 % Last Edit by JOHNY Llanes on 09/14/24 14:31 Results Reviewed Results Reviewed: Laboratory Last Values Hgb A1c (Clinic) 6.2 % (4.0-6.0) H 09/14/24 14:19 Coding Level of Care Code Est Pt Level 3 (15263) Diagnoses Diabetes mellitus with coincident hypertension E11.9; I10 Assessment & Plan Assessment & Plan (1) Diabetes mellitus with coincident hypertension: Code(s): E11.9 - Type 2 diabetes mellitus without complications; I10 - Essential (primary) hypertension Category: Medical Plan: stable; same rx Orders: Orders AMB Hemoglobin A1c 09/14/24 E11.9 - Type 2 diabetes mellitus without complications, I10 - Essential (primary) hypertension
[2024-09-14 14:19] VITALS: BP 120/60; PULSE 75; TEMP 36.1; O2SAT 99
--- OUTSIDE RECORDS SUMMARY | 2024-09-14 16:31 | XMS_ITS | Clinical Summary ---
Author Organization [facility] Address [address] [facility] [address] [place] [address] Phone Care Team Providers Care Sleeve Presser Operator Name Role Phone Christopher Zamudoi MD Primary Care Provider [phone] Allergies Active Allergy Reactions Criticality Noted Date Comments Codeine Other (see comments) 02/28/2021 Medications hydrALAZINE (APRESOLINE) 50 MG tablet Take 1 tablet (50 mg total) by mouth 2 (two) times a day 180 tablet 3 1 Active Additional Information Patient taking differently: 25 mgOral 2 times daily, Reported on 05/04/2023 allopurinol (ZYLOPRIM) 100 MG tablet Take 100 mg by mouth daily 1 Active fenofibrate (TRIGLIDE) 160 MG tablet Take 160 mg by mouth daily 0 Active furosemide (LASIX) 20 MG tablet Take 20 mg by mouth daily 1 Active Accu-Chek Radha Plus test strip TEST THREE TIMES DAILY DIRECTED 0 Active lisinopril (PRINIVIL,ZESTR IL) 20 MG tablet Take 1 tablet by mouth 1 (one) time each day Active omeprazole (PriLOSEC) [address] capsule Take 1 capsule by mouth 1 (one) time each day Active triamcinolone (KENALOG) 0.5 % ointment by Other route 2 (two) times a day Active Microlet Lancets misc USE TO TEST BLOOD SUGAR THREE TIMES DAILY 0 Active insulin NPH-insulin regular (HumuLIN 70/30 KWIKPEN) (70-30) 100 UNIT/ML injection as directed Active metoprolol tartrate (LOPRESSOR) 50 MG tablet Take 0.5 tablets (25 mg total) by mouth 1 (one) time each day 90 tablet 3 3 Active epoetin jayna (EPOGEN,PROCRIT ) 16826 UNIT/ML injectionIndica tions:Anemia due to Renal Failure Inject 40,000 Units under the skin every 14 (fourteen) days Active Active Problems Problem Noted Date Diagnosed Date Anemia in chronic kidney disease 11/09/2023 Anemia in chronic kidney disease 06/30/2023 Chronic kidney disease, stage 4 (severe) 022 Renal osteodystrophy 03/05/2021 Type 2 diabetes mellitus wit h diabetic chronic kidney disease 03/05/2021 Chronic kidney disease stage 3 02/28/2021 Essential hypertension 02/28/2021 Hypertensive heart disease without heart failure 02/28/2021 Microalbuminuria 02/28/2021 Renal disorder due to type 2 diabetes mellitus 0 02/28/2021 Type 2 diabetes mellitus 02/28/2021 Chronic kidney disease, stage 4 (severe) 021 Renal osteodystrophy 02/28/2021 Squamous cell carcinoma of head and neck 021 Overview (09/16/2022): Occipital head wound biopsy 08/22/2020. Invasive SCC. H/O: cataract 10/17/2020 Gout 10/17/2020 Arrhythmia 10/17/2020 Actinic keratosis 10/17/2020 Ulcer of lower extremity 10/17/2020 Overview (09/16/2022): [facility]. History of malignant basal cell neoplasm of skin 01/27/2019 Overview (09/16/2022): lip Encounters Date Type Department Care Team Description 09/05/2024 Orders Only [facility] [address] [phone] Neo Rollins MD 08/08/2024 Orders Only [facility] [address] [facility] [address] [place] [address] Neo Rollins MD Chronic kidney disease, stage 4 (severe) (HCC); Type 2 diabetes mellitus with diabetic chronic kidney disease (HCC); Renal disorder due to type 2 diabetes mellitus <Diabetic nephropathy> (HCC); Anemia in chronic kidney disease 07/12/2024 [facility]ill [facility] [address] [facility] [address] [place] [phone] Janet Hassan MA 07/06/2024 Refill [facility] [address] [facility] [address] [place] [phone] Alta Diego MA from Last 3 Months Immunizations Name Administration Dates Next Due Moderna SARS-COV-2 10/22/2020,09/23/2020 Tdap 02/03/2012,01/21/2001 Family History Medical History Relation Comments Diabetes Child 1 Hypertension Child 2 Gout Child 3 Cancer Father Diabetes Father Hypertension Father Diabetes Mother Heart disease Mother Hypertension Mother Stroke Mother Diabetes Sibling 1 Hypertension Sibling 2 Relation Status Comments Child 1 Child 2 Child 3 Father Mother Sibling 1 Sibling 2 Social History Tobacco Use Types Packs/Day Years Used Date Smoking Tobacco: Never Alcohol Use Standard Drinks/Week Comments No 0 (1 standard drink = 0.6 oz pur e alcohol) Comments Unknown Sex and Gender Information Value Date Recorded Sex Assigned at Not on file Legal Sex Female 4:54 PM EST Gender Identity Not on file Sexual Orientation Not on file Last Filed Vital Signs Vital Sign Reading Time Taken Comments Blood Pressure 128/62 03/08/2024 1:41 PM EDT Pulse 86 03/08/2024 1:41 PM EDT Temperature - - Respiratory Rate - - Oxygen Saturation 98% 03/08/2024 1:41 PM EDT Inhaled Oxygen Concentration - - Weight 101 kg (223 lb 9.6 oz) 11/09/2023 2:32 PM EDT Height 165.1 cm (5' 5 ) 08/30/2020 12:00 PM EST Body Mass Index 37.21 08/30/2020 12:00 PM EST Plan of Treatment Upcoming Encounters Date Type Department Care Team (Late st Contact Info) Description 09/26/2024 2:00 PM EST Office Visit [facility] [address] [phone] Neo Rollins MD [address] [phone] Health Maintenance Due Date Last Done Comments Diabetes: Hemoglobin A1C 09/23/2020 04/18/2019 Diabetes: Ophthalmology Exam 09/23/2020 Diabetes: Pedal Pulse Checked 09/23/2020 Diabetes: Sensory Foot Exam 09/23/2020 Diabetes: Visual Foot Exam 09/23/2020 Pneumococcal Vaccine: 65+ Ye ars (2 of 2 - PCV) 07/15/2022 07/15/2021 Influenza Vaccine (#1) 2024 07/31/2023 Hepatitis B Vaccine Aged Out No longe r eligible based on patient's age to complete this topic Procedures Procedure Name Priority Date/Time Associated Diagnosis Comments PROTEIN,TOTAL,URINE Routine 09/05/2024 1 :06 PM EST CREATININE, URINE, RANDOM Routine 09/05/2024 1:06 PM EST URINALYSIS Routine 09/05/2024 1:06 PM EST URINALYSIS WITH MICROSCOPIC Routine 09/05/2024 1:06 PM EST Chronic kidney disease, stage 4 (severe) (HCC) Type 2 diabetes mellitus with diabetic chronic kidney disease (HCC) Renal disorder due to type 2 diabetes mellitus <Diabetic nephropathy> (HCC) Anemia in chronic kidney disease VITAMIN D 1,25 DIHYDROXY Routine 09/05/2024 12:54 PM EST PTH, INTACT (HC) Routine 09/05/2024 12:5 4 PM EST CREATININE, BLOOD Routine 09/05/2024 12: 54 PM EST BUN Routine 09/05/2024 12:54 PM EST ELECTROLYTE PANEL Routine 09/05/2024 12: 54 PM EST CBC AND DIFFERENTIAL Routine 09/05/2024 12:54 PM EST CALCIUM Routine 09/05/2024 12:54 PM EST Chronic kidney disease, stage 4 (severe) (HCC) Type 2 diabetes mellitus with diabetic chronic kidney disease (HCC) Renal disorder due to type 2 diabetes mellitus <Diabetic nephropathy> (HCC) Anemia in chronic kidney disease ALBUMIN Routine 09/05/2024 12:54 PM EST Chronic kidney disease, stage 4 (severe) (HCC) Type 2 diabetes mellitus with diabetic chronic kidney disease (HCC) Renal disorder due to type 2 diabetes mellitus <Diabetic nephropathy> (HCC) Anemia in chronic kidney disease MAGNESIUM Routine 09/05/2024 12:54 PM EST Chronic kidney disease, stage 4 (severe) (HCC) Type 2 diabetes mellitus with diabetic chronic kidney disease (HCC) Renal disorder due to type 2 diabetes mellitus <Diabetic nephropathy> (HCC) Anemia in chronic kidney disease PHOSPHATE ( PHOSPHORUS) Routine 09/05/2024 12:54 PM EST Chronic kidney disease, stage 4 (severe) (HCC) Type 2 diabetes mellitus with diabetic chronic kidney disease (HCC) Renal disorder due to type 2 diabetes mellitus <Diabetic nephropathy> (HCC) Anemia in chronic kidney disease HEMOGLOBIN A1C Routine 04/18/2019 10:34 AM EDT from Last 3 Months or Most Recently Relevant to Health Maintenance Results * (ABNORMAL) Protein, Total, Urine (09/05/2024 1:06 PM EST) Protein Urine Random 394(H) <12 mg/dL See order comments 09/05/2024 1:06 PM EST 09/05/2024 1:06 PM EST us Neo Rollins MD LAB URINE ORDERABLES Final Re sult [place] See order comments [place] [address] * Creatinine, urine, random (09/05/2024 1:06 PM EST) Creatinine, Urine 54.35 mg/dL See order comments 09/05/2024 1:06 PM EST 09/05/2024 1:06 PM EST Neo Rollins MD LAB URINE ORDERABLES Final Re sult Performing Organization Address City/[facility] Co de Phone Number See order comments [place] [address] * (ABNORMAL) Urinalysis with microscopic (09/05/2024 1:06 PM EST) Color Urine Yellow See orde r comments Appearance Urine Clear See order comments pH Urine 5.5 5.0 - 9.0 See order comments Glucose Urine Negative Negative mg/dL See order comments Blood, Urine Negative Negative See ord er comments Specific [place]rm[place] Urine 1.015 1.005 - 1.025 See order comments Protein Urine 300 (3+)(A) Neg-Trace mg/dL See order comments Ketones, Urine Negative Negative mg/dL See order comments Nitrite, Urine Negative Negative See o rder comments Leukocyte Esterase Urine Trace(A) Negative See order comments RBC, Urine 0-2 0 - 2 /HPF See orde r comments WBC 11-20(A) 0 - 5 /HPF See order comments Squamous Epithelial, Urine 6-10 0 - 2 /HPF See order comments Bacteria, Urine 1+ None Seen See order comments Hyaline Casts, Urine 0-2 0 - 2 /LPF See order comments Urine (Urine, Clean Catch) 09/05/2024 1:06 PM EST 09/05/2024 1:06 PM EST us Neo Rollins MD LAB URINE ORDERABLES Final Re sult Performing Organization Address City/[facility]/ZIP Co de Phone Number [place] See order comments [place] [address] * (ABNORMAL) Urinalysis (09/05/2024 1:06 PM EST) Color Urine Yellow See orde r comments Appearance Urine Clear See order comments pH Urine 5.5 5.0 - 9.0 See order comments Glucose Urine Negative Negative mg/dL See order comments Blood, Urine Negative Negative See ord er comments Specific Irmo Urine 1.015 1.005 - 1.025 See order comments Protein Urine 300 (3+)(A) Neg-Trace mg/dL See order comments Ketones, Urine Negative Negative mg/dL See order comments Nitrite, Urine Negative Negative See o rder comments Leukocyte Esterase Urine Trace(A) Negative See order comments 09/05/2024 1:06 PM EST 09/05/2024 1:06 PM EST Neo Rollins MD LAB URINE ORDERABLES Final Re sult Performing Organization Address [facility] de Phone Number [facility] See order comments [place] [address] * (ABNORMAL) Creatinine (09/05/2024 12:54 PM EST) Creatinine Serum 1.71(H) 0.5 - 1.4 mg/dL See order comments eGFR 28 See order comments Comment: Chronic Kidney Disease: ??Estimated GFR < 60 mL/min/1.73m2 Severe Kidney Disease: ??Estimated GFR < 15 mL/min/1.73m2 09/05/2024 12:5 4 PM EST 09/05/2024 12:54 PM EST Neo Rollins MD LAB BLOOD ORDERABLES Final Re sult Performing Organization Address [facility] de Phone Number See order comments [place] [address] * (ABNORMAL) PTH, Intact (09/05/2024 12:54 PM EST) Parathyroid Hormone, Intact 81.0(H) 8.7 - 77.1 pg/mL See order comments 09/05/2024 12:5 4 PM EST 09/05/2024 12:54 PM EST Neo Rollins MD LAB [id number] SOLICITED RESULTS Final Result Performing Organization Address [facility]/ZIP Co de Phone Number [place] See order comments [place] [address] * (ABNORMAL) Vitamin D 1,25 dihydroxy (09/05/2024 12:54 PM EST) Pathologist [facility] Calcitriol(1,25 di-OH Vit D) 17(A) 18 - 72 pg/mL See order comments Vitamin D3 125 (OH)2 8 pg/mL See order comments Vitamin D2 125 (OH)2 9 pg/mL See order comments Comment: Vitamin D3, 1,25(OH)2 indicates both endogenous production and supplementation. Vitamin D2, 1,25(OH)2 is an indicator of exogenous sources, such as diet or supplementation. ??Interpretation and therapy are based on measurement of Vitamin D,1,25(OH)2, Total. This test was developed and its analytical performance characteristics have been determined by [facility], [place], [place]. It has not been cleared or approved by the FDA. This assay has been validated pursuant to the CLIA regulations and is used for clinical purposes. THIS TEST WAS PERFORMED AT: [facility] [address] ??[phone] MICAELA VEE MD,PHD 09/05/2024 12:5 4 PM EST 09/05/2024 12:54 PM EST us Neo Rollins MD LAB BLOOD ORDERABLES Final Re sult [place] See order comments [place] [address] * (ABNORMAL) CBC and Differential (09/05/2024 12:54 PM EST) Pathologist [facility] WBC 5.9 4.8 - 10.8 X10*3/uL See order comments RBC 3.67(L) 4.20 - 5.50 X10*6/uL See order comments Hgb 9.3(L) 12.0 - 16.0 g/dl See order comments Hematocrit 30.3(L) 37.0 - 47.0 % See order comments MCV 82.6 80.0 - 98.0 fL See order comments MCH 25.3(L) 27.0 - 33.0 pg See order comments MCHC 30.7(L) 31.0 - 35.0 g/dl See order comments RDW 16.9(H) 11.0 - 16.0 % See order comments Platelets 260 160 - 400 X10*3/uL See order comments MPV 12.7(H) 9.4 - 12.3 fL See order comments Neutrophils % Auto 72.0 45 - 73 % See order comments Immature Granulocytes 0.5(H) 0.0 - 0.4 % See order comments Lymphocytes Relative 18.3(L) 20 - 40 % See order comments Monocytes 5.5 2 - 11 % See order comments Eosinophils Relative 3.4 0 - 4 % See order comments Basophils Relative 0.3 0 - 2 % See order comments nRBC Count 0.0 0.0 - 0.2 /100WBC See order comments Neutrophils Absolute 4.2 2.0 - 8.3 x10*3/uL See order comments Immature Grans (Absolute) 0.03 0.00 - 0.03 X10*3/uL See order comments Lymphocytes Absolute 1.1(L) 1.2 - 4.9 X10*3/uL See order comments Monocytes Absolute 0.3 0.1 - 1.2 X10*3/uL See order comments Eosinophils Absolute 0.2 0.0 - 0.4 X10*3/uL See order comments Basophils Absolute 0.0 0.0 - 0.2 X10*3/uL See order comments NRBC Absolute 0.000 0.0 - 0.012 X10*3/uL See order comments 09/05/2024 12:5 4 PM EST 09/05/2024 12:54 PM EST us Neo Rollins MD LAB BLOOD ORDERABLES Final Re sult [place] See order comments [place] [address] * (ABNORMAL) BUN (09/05/2024 12:54 PM EST) BUN 42(H) 9 - 16 mg/dL See order comments 09/05/2024 12:5 4 PM EST 09/05/2024 12:54 PM EST us Neo Rollins MD LAB BLOOD ORDERABLES Final Re sult Performing Organization Address [facility] Co de Phone Number [facility] See order comments [place] [address] * (ABNORMAL) Phosphorus (09/05/2024 12:54 PM EST) Phosphorus, Serum 2.6(L) 2.7 - 4.5 mg/dL See order comments Blood (Blood, Venous) 09/05/2024 12:54 PM EST 09/05/2024 12:54 PM EST us Neo Rollins MD LAB BLOOD ORDERABLES Final Re sult Performing Organization Address [facility] de Phone Number [facility] See order comments [place] [address] * Magnesium (09/05/2024 12:54 PM EST) Pathologist [facility] Magnesium 1.7 1.6 - 2.6 mg/dL See order comments Blood (Blood, Venous) 09/05/2024 12:54 PM EST 09/05/2024 12:54 PM EST us Neo Rollins MD LAB BLOOD ORDERABLES Final Re sult Performing Organization Address [facility] Phone Number [facility] [place] See order comments [place] [address] * Calcium (09/05/2024 12:54 PM EST) Calcium 9.5 8.4 - 10.2 mg/dL See order comments Blood (Blood, Venous) 09/05/2024 12:54 PM EST 09/05/2024 12:54 PM EST us Neo Rollins MD LAB BLOOD ORDERABLES Final Re sult Performing Organization Address [facility] Phone Number [place] See order comments [place] [address] * (ABNORMAL) Albumin (09/05/2024 12:54 PM EST) Albumin 3.3(L) 3.5 - 5.0 g/dL See order comments Blood (Blood, Venous) 09/05/2024 12:54 PM EST 09/05/2024 12:54 PM EST Neo Rollins MD LAB BLOOD ORDERABLES Final Re sult See order comments [place] [address] * (ABNORMAL) Electrolyte panel (09/05/2024 12:54 PM EST) Pathologist [facility] Sodium 138 135 - 145 mmol/L See order comments Potassium 4.0 3.3 - 5.1 mmol/L See order comments Chloride 108 96 - 108 mmol/L See order comments Bicarbonate (CO2) 21(L) 22 - 29 mmol/L See order comments Anion Gap 13 12 - 20 See order comments 09/05/2024 12:5 4 PM EST 09/05/2024 12:54 PM EST Neo Rollins MD LAB BLOOD ORDERABLES Final Re sult See order comments [place] [address] * Hemoglobin A1c (04/18/2019 10:34 AM EDT) Pathologist [facility] Hemoglobin A1C 7.0 % [facility] Comment: ?Hemoglobin A1C Reference Range ? Adults: ??4.8 - 6.0 % ? Non diabetic: ??< 6.0 % ? Goal: ??< 7.0 % Additional Action Suggested: ??> 8.0 % Note: ??Hemoglobin A1c results are invalid for patients ? with abnormal amounts of HbF. ??Blood transfusions ? may impact the HbA1c concentration in the patient ? sample. Estimated Average Glucose 154 MG/DL NIRALIALISHAFRANKIE Comment: eAG = Estimated average glucose which is %A1C expressed as average glucose, using the formula of the [id number]-[id number] Average Glucose study (ADAG), Diabetes Care, Vol.31,#8, Mar. 2007 04/18/2019 10:3 4 AM EDT us Christopher Zamudio MD LAB BLOOD ORDERABLES Final Resu lt ALISIA from Last 3 Months or Most Recently Relevant [id number] [facility] MEDICARE [place] [address] MEDICARE [facility] [place]ICAID [place] Care Teams Sleeve Presser Operator Relationship Specialty Start Date End Date Christopher Zamudio MD [address] [place] [address] PCP - General 09/02/20
--- OUTSIDE RECORDS SUMMARY | 2024-09-14 16:31 | XMS_ITS | Clinical Summary ---
Author Organization [employer] Address [address] [place] [address] [address] [place] [address] Care Team Providers Care Mechanical Manager Name Role Phone Unavailable Primary Care Provider Unavailabl e Social History Tobacco Use Types Packs/Day Years Used Date Smoking Tobacco: Never Assessed Comments Unknown Sex and Gender Information Value Date Recorded Sex Assigned at Female 06/22/2022 10:29 AM EDT Legal Sex Female 10:29 AM EDT Gender Identity Not on file Sexual Orientation Not on file Plan of Treatment Health Maintenance Due Date Last Done Comments Depression Screening 1935 Alcohol/Substance Use Screening 1947 Tobacco Screening 1947 Zoster Vaccines (1 of 2) 1985 Pneumococcal Vaccine: 65+ Years (1 of 1 - PCV) 2000 RSV Patients and Patients Aged 60 years or older (1 - 1-dose 75+ series) 2010 DTaP/Tdap/Td Vaccines (3 - T d or Tdap) 02/02/2022 02/03/2012, 01/21/2001 COVID-19 Vaccine (2023-2 5 season) 2024 10/22/2020, 09/23/2020 Influenza Vaccine (#1) 2024 HIB Vaccines Aged Out No longer eligi ble based on patient's age to complete this topic HPV Vaccines Aged Out No longer eligi ble based on patient's age to complete this topic Hepatitis A Vaccines Aged Out No long er eligible based on patient's age to complete this topic Hepatitis B Vaccines Aged Out No long er eligible based on patient's age to complete this topic IPV Vaccines Aged Out No longer eligi ble based on patient's age to complete this topic Meningococcal Vaccine Aged Out No esthela wisam eligible based on patient's age to complete this topic RSV under 20 months Aged Out No longe r eligible based on patient's age to complete this topic Rotavirus Vaccines Aged Out No longer eligible based on patient's age to complete this topic
--- OUTSIDE RECORDS SUMMARY | 2024-09-14 16:31 | XMS_ITS | Clinical Summary ---
Author Organization [facility] Address [address] [place] [phone] Care Team Providers Care Manager Non Profit Name Role Phone Christopher Zamudio MD Primary Care Provider [phone] Surgical History Surgery Date Site/Laterality Comments CHOLECYSTECTOMY PROCEDURE: HISTORICAL CHOLECYSTECTOMY; COMMENT: 1981 LEG SURGERY 1985 PROCEDURE: HISTORICAL LEG SURGERY; COMMENT: Vein ablation APPENDECTOMY PROCEDURE: HISTORICAL APPENDECTOMY; COMMENT: 1981 OTHER SURGICAL HISTORY 08/18/2023 Right PROCEDURE: [place] INCISION BONE CORTEX FOOT; COMMENT: right, 5th metatarsal OTHER SURGICAL HISTORY 08/18/2023 Right PROCEDURE: [place] BIOPSY BONE OPEN SUPERFICIAL; COMMENT: right, 5th proximal phalanx OTHER SURGICAL HISTORY 08/18/2023 Right PROCEDURE: [place] SECONDARY CLOSURE SURG WOUND/DEHSN XTNSV/COMP Medical History Medical History Date Comments HTN (hypertension) DX:HTN (hyper tension) 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 Invasive SCC. History of basal cell carcin miley of skin 01/27/2019 DX:History of basal cell car cinoma of skin; COMMENT: lip Diabetic neuropathy (CMS/HCC) 10/17/2020 DX :Diabetic neuropathy (HCC); COMMENT: Bilateral hands and feet. Type 2 diabetes mellitus wit h neurological manifestation (CMS/HCC) 10/17/2020 DX:Type 2 diabete s mellitus with neurological manifestation (HCC) Gout 10/17/2020 DX:Gout Actinic keratosis 10/17/2020 DX:Actinic ker atosis Lower extremity ulceration (CMS/HCC) 10/17/2020 DX:Lower extremity ulceration (HCC); COMMENT: [facility]. History of cataract 10/17/2020 DX:History o f cataract Type 2 diabetes mellitus wit h cataract (CMS/HCC) 10/17/2020 DX:Type 2 diabetes mellitus with cataract (HCC) Arrhythmia 10/17/2020 DX:Arrhythmia Family History Medical History Relation Name Comments Stomach cancer Father Diabetes Mother Stroke Mother Relation Name Status Comments Father Mother Social History Tobacco Use Types Packs/Day Years Used Date Smoking Tobacco: Never Smokeless Tobacco: Never Alcohol Use Standard Drinks/Week Comments No 0 (1 standard drink = 0.6 oz pur e alcohol) Sex and Gender Information Value Date Recorded Sex Assigned at Not on file Gender Identity Not on file Sexual Orientation Not on file Obstetrics History Last Filed Vital Signs Vital Sign Reading Time Taken Comments Blood Pressure 157/93 09/20/2023 2:59 PM EST R A rm Pulse 101 09/20/2023 2:59 PM EST Temperature - - Respiratory Rate - - Oxygen Saturation - - Inhaled Oxygen Concentration - - Weight 95.3 kg (210 lb) 11/18/2023 1:32 PM EDT Height 165.1 cm (5' 5 ) 11/18/2023 1:32 PM EDT Body Mass Index 34.95 11/18/2023 1:32 PM EDT Plan of Treatment Health Maintenance Due Date Last Done Comments Pneumococcal Vaccine: 65+ Years (1 of 2 - PCV) 1941 Diabetes: Annual Foot Exam 1945 Diabetes: Annual Retina Eye Exam 1945 DTaP,Tdap,and Td Vaccines (1 - Tdap) 1954 Zoster Vaccines (1 of 2) 1954 RSV Immunization Patients 60 + Years Old (1 - 1-dose 75+ series) 2010 COVID-19 Vaccine (3 - Modern a risk series) 11/19/2020 10/22/2020, 09/23/2020 Cholesterol Screening (Lipid Panel) 07/26/2022 Depression Screening 07/26/2022 Falls Risk Assessment 07/26/2022 Osteoporosis Screening (Bone Density Screening) 07/26/2022 Social Influencers of Health Screening 07/26/2022 Diabetes: Blood Sugar Contro l Test (HGBA1C) 08/07/2022 Hypertension/CHF/CAD Annual BMP Blood Test 08/07/2022 Influenza Vaccine (#1) 2024 HIB Vaccines Aged [...] on patient's age to complete this topic MMR Vaccines Aged Out No longer eligi ble based on patient's age to complete this topic Meningococcal ACWY Vaccine Aged Out N o longer eligible based on patient's age to complete this topic RSV Immunization Patients Under 20 months Aged Out No longer eligible b ased on patient's age to complete this topic Varicella Vaccines Aged Out No longer eligible based on patient's age to complete this topic Advance Directives Documents on File Type Date Recorded Patient Caustic Liquor Maker Expl anation Health Care Decision (hx) 08/20/2023 AD العراقي DIRECTIVE Health Care Decision (hx) 08/20/2023 AD العراقي DIRECTIVE Care Teams Manager Non Profit Relationship Specialty Start Date End Date Christopher Zamudio MD [address] [place] [address] [address] [place] [address] PCP - General 09/10/16
--- OUTSIDE RECORDS SUMMARY | 2024-09-14 16:31 | XMS_ITS ---
Author Organization [facility] [place] Address Unknown Allergies, Adverse Reactions, Alerts Substance Reaction Status Noted Date Resolved Date Codeine active 12/16/2023 Problems Problem Status Start Date End Date DISPLACED BIMALLEOLAR FRACTU RE OF RIGHT LOWER LEG, SUBSEQUENT ENCOUNTER FOR CLOSED FRACTURE WITH ROUTINE HEALING (Primary) (S82.841D - ICD-10-CM) ACTIVE 12/16/2023 UNSPECIFIED FALL, SUBSEQUENT ENCOUNTER (W19.XXXD - ICD-10-CM) ACTIVE 12/16/2023 PAROXYSMAL ATRIAL FIBRILLATION (I48.0 - ICD-10-CM) ACT GEN 12/16/2023 TYPE 2 DIABETES MELLITUS WIT HOUT COMPLICATIONS (E11.9 - ICD-10-CM) ACTIVE 12/16/2023 ESSENTIAL (PRIMARY) HYPERTENSION (I10 - ICD-10-CM) ACT GEN 12/16/2023 HYPERLIPIDEMIA, UNSPECIFIED (E78.5 - ICD-10-CM) ACTIVE 12/16/2023 GOUT, UNSPECIFIED (M10.9 - ICD-10-CM) ACTIVE UNSTEADINESS ON FEET (R26.81 - ICD-10-CM) ACTIVE 12/17/2023 Encounters Encounter Performer Performer Role Encounter Diagnoses Location Date Discharge - Discharged / Transferred to another hospital - [facility] [place] 12/16/2023 02:35 pm EDT - 12/18/2023 11:17 pm EDT Reason For Referral Altered Mental Status Immunizations Vaccine Date TB 1 Step Mantoux (PPD) 12/16/2023 08:00 pm EDT TB 2 Step Mantoux Skin Test Social History
--- OUTSIDE RECORDS SUMMARY | 2024-09-14 16:31 | XMS_ITS | Encounter Summary ---
Author Organization [facility] Address [address] [address] Phone Care Team Providers Care [employer] Name Role Phone Christopher Zamudio MD Primary Care Provider [phone] Encounter Details Date Type Department Care Team (Late Contact Info) Description 09/05/2024 Orders Only [facility] [address] [address] Neo Rollins MD [facility] [address] [address] Social History Tobacco Use Types Packs/Day Years Used Date Smoking Tobacco: Never Alcohol Use Standard Drinks/Week Comments No 0 (1 standard drink = 0.6 oz pur e alcohol) Comments Unknown Sex and Gender Information Value Date Recorded Sex Assigned at Not on file Legal Sex Female 4:54 PM EST Gender Identity Not on file Sexual Orientation Not on file documented as of this encounter Plan of Treatment Upcoming Encounters Date Type Department Care Team (Late Contact Info) Description 09/26/2024 2:00 PM EST Office Visit [facility] [address] [address] Neo Rollins MD [address] [address] documented as of this encounter Procedures Procedure Name Priority Date/Time Associated Diagnosis Comments PROTEIN,TOTAL,URINE Routine 09/05/2024 1 :06 PM EST CREATININE, URINE, RANDOM Routine 09/05/2024 1:06 PM EST URINALYSIS Routine 09/05/2024 1:06 PM EST CREATININE, BLOOD Routine 09/05/2024 12: 54 PM EST PTH, INTACT (HC) Routine 09/05/2024 12:5 4 PM EST VITAMIN D 1,25 DIHYDROXY Routine 09/05/2024 12:54 PM EST CBC AND DIFFERENTIAL Routine 09/05/2024 12:54 PM EST BUN Routine 09/05/2024 12:54 PM EST ELECTROLYTE PANEL Routine 09/05/2024 12: 54 PM EST documented in this encounter Results * (ABNORMAL) Protein, Total, Urine (09/05/2024 1:06 PM EST) Protein Urine Random 394(H) <12 mg/dL See order comments 09/05/2024 1:06 PM EST 09/05/2024 1:06 PM EST Neo Rollins MD LAB URINE ORDERABLES Final Re sult Performing Organization Address [facility] de Phone Number [place] See order comments [place] [address] * Creatinine, urine, random (09/05/2024 1:06 PM EST) Creatinine, Urine 54.35 mg/dL See order comments 09/05/2024 1:06 PM EST 09/05/2024 1:06 PM EST us Neo Rollins MD LAB URINE ORDERABLES Final Re sult Performing Organization Address [facility] Co de Phone Number [place] See order comments [place] [address] * (ABNORMAL) Urinalysis (09/05/2024 1:06 PM EST) Color Urine Yellow See orde r comments Appearance Urine Clear See order comments pH Urine 5.5 5.0 - 9.0 See order comments Glucose Urine Negative Negative mg/dL See order comments Blood, Urine Negative Negative See ord er comments Specific [place] Urine 1.015 1.005 - 1.025 See order comments Protein Urine 300 (3+)(A) Neg-Trace mg/dL See order comments Ketones, Urine Negative Negative mg/dL See order comments Nitrite, Urine Negative Negative See o rder comments Leukocyte Esterase Urine Trace(A) Negative See order comments 09/05/2024 1:06 PM EST 09/05/2024 1:06 PM EST us Neo Rollins MD LAB URINE ORDERABLES Final Re sult [place] See order comments [place] [address] * (ABNORMAL) Vitamin D 1,25 dihydroxy (09/05/2024 12:54 PM EST) Calcitriol(1,25 di-OH Vit D) 17(A) 18 - [...] analytical performance characteristics have been determined by [facility], [place], [place]. It has not been cleared or approved by the FDA. This assay has been validated pursuant to the CLIA regulations and is used for clinical purposes. THIS TEST WAS PERFORMED AT: [facility]/[address] ??[id number] MICAELA VEE MD,PHD 09/05/2024 12:5 4 PM EST 09/05/2024 12:54 PM EST us Neo Rollins MD LAB BLOOD ORDERABLES Final Re sult Performing Organization Address [facility] Co de Phone Number [place] See order comments [place] [address] * (ABNORMAL) PTH, Intact (09/05/2024 12:54 PM EST) Parathyroid Hormone, Intact 81.0(H) 8.7 - 77.1 pg/mL See order comments 09/05/2024 12:5 4 PM EST 09/05/2024 12:54 PM EST us Neo Rollins MD LAB [id number] SOLICITED RESULTS Final Result Performing Organization Address [facility] de Phone Number [place] See order comments [place] [address] * (ABNORMAL) Creatinine (09/05/2024 12:54 PM EST) Creatinine Serum 1.71(H) 0.5 - 1.4 mg/dL See order comments eGFR 28 See order comments Comment: Chronic Kidney Disease: ??Estimated GFR < 60 mL/min/1.73m2 Severe Kidney Disease: ??Estimated GFR < 15 mL/min/1.73m2 09/05/2024 12:5 4 PM EST 09/05/2024 12:54 PM EST us Neo Rollins MD LAB BLOOD ORDERABLES Final Re sult Performing Organization Address [facility] Co de Phone Number [place] See order comments [place] [address] * (ABNORMAL) BUN (09/05/2024 12:54 PM EST) BUN 42(H) 9 - 16 mg/dL See order comments 09/05/2024 12:5 4 PM EST 09/05/2024 12:54 PM EST us Neo Rollins MD LAB BLOOD ORDERABLES Final Re sult Performing Organization Address [facility]/ZIP Co de Phone Number [place] See order comments [place] [address] * (ABNORMAL) Electrolyte panel (09/05/2024 12:54 PM EST) [facility] Sodium 138 135 - 145 mmol/L See order comments Potassium 4.0 3.3 - 5.1 mmol/L See order comments Chloride 108 96 - 108 mmol/L See order comments Bicarbonate (CO2) 21(L) 22 - 29 mmol/L See order comments Anion Gap 13 12 - 20 See order comments 09/05/2024 12:5 4 PM EST 09/05/2024 12:54 PM EST Neo Rollins MD LAB BLOOD ORDERABLES [facility] Performing Organization Address [facility] Co de Phone Number [place] See order comments [place] [address] * (ABNORMAL) CBC and Differential (09/05/2024 12:54 PM EST) [facility] WBC 5.9 4.8 - 10.8 X10*3/uL See [...] MD LAB BLOOD ORDERABLES Final Re sult [place] See order comments [place] [address] documented in this encounter Visit Diagnoses Not on filedocumented in this encounter Care Teams [employer] Relationship Specialty Start Date End Date Christopher Zamudio MD [address] [place], [place] PCP - General 09/02/20 documented as of this encounter
--- OUTSIDE RECORDS SUMMARY | 2024-09-14 16:32 | XMS_ITS | Data Portability ---
Author Organization [facility], Main Office Address [address] [place] [address] Care Team Providers Care Squeegee Tender Name Role Phone TISHA MANZO Primary Care Provider YARA CISNEROS 2ND FLOOR OTHER Assessment Encounter [...] Address Organization Details Recorded Time Bacteremi a 0783736 Active 2022 MSSA foot infection Not Available [facility] 4 02:47:47 Type 2 diabetes mellitus 19367470 Active 2022 Not Available [facility] 4 02:47:47 Hypothyro idism 33407429 Active 2022 Not Available [facility] 4 02:47:47 Chronic kidney disease 683682071 Active 2022 Not Available [facility] 4 02:47:47 Gout 81816468 Active 2022 Not Available [facility] 4 02:47:47 Gastroeso phageal reflux disease without esophagit is 586282837 Active 2022 Not Available [facility] 4 02:47:47 Hyperlipi demia 80525917 Active 2022 Not Available [facility] 4 02:47:47 Essential hypertens ion 27313988 Active 2022 Not Available [facility] 4 02:47:47 Hypomagne semia 671194036 Active 2023 Not Available [facility] 4 02:47:47 Vitamin D deficienc y 00986042 Active 2023 Not Available [facility] 4 02:47:47 Chronic diastolic heart failure 310558340 Active 2023 Janee Davis MD [address] [facility], [facility] [address], [place], [address] , [facility] 4 10:48:17 Anemia 339436090 Active 2023 Janee Davis MD [address] [facility], [address], [place], [address] , [facility] 4 11:10:38 Bimalleol ar fracture of ankle 376851166 Active 2023 TATI CURRIE [address] [facility], [address], [place], [address] , [facility] 4 14:06:55 Stasis dermatiti s and 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 Please review this document and add these problems to the patient's chart manually as needed. Problem Notes None recorded. Medical Equipment None Reported. Allergies Allergen ID Allergen Name Allergen Category Reaction Reaction Severity Criticality Documentation Date Start Date Code Code System Note Provider Name and Address Organization Details Recorded Time [id number] codeine medicatio n Not available Not available Not available 08/20/2023 2670 RxNorm Not Available Not Available Not Available Vitals Date Recorded Body height Heart rate Respiratory rate Body temperature Systolic blood pressure Diastolic blood pressure Provider Name and Address Organization Details Last Updated DateTime 4 170.18 cm 80 /min 16 /min 98 [degF] 129 mm[Hg] 78 mm[Hg] TATI CURRIE [address] [facility], [address], [place], [address], [facility] 4 10:52:49 Date Recorded Body height Body temperature Respiratory rate Heart rate Systolic blood pressure Diastolic blood pressure Provider Name and Address Organization Details Last Updated DateTime 4 170.18 cm 97.3 [degF] 18 /min 68 /min 122 mm[Hg] 68 mm[Hg] TATI CURRIE [address] [facility], [address], [place], [address], [facility] 4 14:33:03 Date Recorded Body height Heart rate Respiratory rate Body temperature Systolic blood pressure Diastolic blood pressure Provider Name and Address Organization Details Last Updated DateTime 4 170.18 cm 74 /min 18 /min 98 [degF] 132 mm[Hg] 74 mm[Hg] TATI CURRIE [address] [facility], [address], [place], [address], [facility] 4 12:19:44 Date Recorded Body height Body mass index (BMI) Body weight Heart rate Respiratory rate Body temperature Oxygen saturation Oxygen saturation in Arterial blood by Pulse oximetry Systolic blood pressure Diastolic blood pressure Provider Name and Address Organization Details Last Updated DateTime 4 170.18 cm 31.6 kg/m2 48602.6 6 g 79 /min 18 /min 97.4 [degF] 100 % 100 % 141 mm[Hg] 75 mm[Hg] Janee Davis MD [address] [facility], [address], [place], [address], [facility] 4 21:07:19 Date Recorded Body height Heart rate Respiratory rate Body temperature Oxygen saturation Oxygen saturation in Arterial blood by Pulse oximetry Systolic blood pressure Diastolic blood pressure Provider Name and Address Organization Details Last Updated DateTime 4 170.18 cm 79 /min 18 /min 98 [degF] 100 % 100 % 141 mm[Hg] 75 mm[Hg] TATI CURRIE [address], [address], [place], [address], [facility] 4 14:26:02 Social History Question Answer Notes LastModified by Organizat ion Details LastModified Time Tobacco Smoking Status Never Smoker ALVARADO DEL CID NP [address], [address], [place], [address], [facility] 08/20/2023 11:16:58 Do You Have An Advance [...] Do You Have A Medical Power Of Wreath And Garland Maker Hand? Yes Information not available 08/24/2023 What Was [...] adjuvanted, quadrivalent, PF 3 completed Not Available [facility] 09/30/2023 02:47:47 Td(adult) unspecified formulation 1 completed [facility] 12/28/2023 16:20:20 SARS-COV-2 (COVID-19) vaccine, UNSPECIFIED 1 completed [facility] 12/28/2023 16:20:43 SARS-COV-2 (COVID-19) vaccine, UNSPECIFIED 1 completed [facility] 12/28/2023 16:20:50 pneumococcal polysaccharide PPV23 1 completed [facility] 12/28/2023 16:21:57 SARS-COV-2 (COVID-19) vaccine, UNSPECIFIED 1 completed [facility] 12/28/2023 16:22:45 Past Encounters Encounter ID Performer Location Encounter Start Date Encounter Closed Date Diagnosis/Indication Diagnosis SNOMED-CT Code Diagnosis ICD10 Code Diagnosis Note [id number] SCOTT NOBLES [address] [place] [address] 08/20/2023 09:52:59 08/31/2023 13:27:41 Bacteremia 0941223 R78.81 flush picc qshiftcefa zolin 1 gm bid to 2/2followu p with vascular as planned Type 2 tiara betes mellitus 51245622 E11.9 humulin/re g 70/30 50 units bidmonitor glucose Chronic ki dney disease 840777245 N18.9 monitor labsavoid nephrotoxi c meds Gastroesop hageal reflux disease without esophagitis 456625925 K21.9 mag ox 400 mg daily to 08/30omepraz ole 20 mg daily Gout 10266963 M10.9 allopurino l 100 mg dailyD3 1250 o35pioe Hyperlipidemia 97053994 E78.5 fenofibrat e 160 mg daily Hypothyroidism 76437913 E03.9 hx of Essential hypertension 87751125 I10 lasix 20 mg dailyhydra lazine 25 mg bidtoprol 25 mg dailymonit or bplisinopr il stopped in hospital [id number] ALVARADO DEL CID NP [address] [place] [address] 08/24/2023 13:44:02 08/25/2023 03:52:21 Type 2 diabetes mellitus 01781860 E11.9 humulin/re g 70/30 50 units bidmonitor glucose Bacteremia 7623353 R78.8 1 flush picc qshiftcefa zolin 1 gm bid to 2/2followu p with vascular as planned [id number] Janee Davis MD [address] [place] [address] 08/24/2023 15:18:19 08/31/2023 14:10:55 Type 2 diabetes mellitus 15434619 E11.9 With some hypoglycem ia.Humulin 70/30 was lowered from 50 units BID to 25U BID and SSI continued. Monitor fingerstic ks, will change from TID to qid, with low dose SS at hs.HgA1C was 6.7 inpt. Bacteremia 3250423 R78.8 1 As above Osteomyeli tis of right foot 3601120793 525719 M86.271 S/P I&D and debridemen t. Vasc. surgeon (Dr. Friedman) felt that all diseased bone was removed.Co ntinue cefazolin 1 gm IV BID until 09/24 to complete 6 wk course.Con tinue wound care as ordered.F/ U with Dr. Friedman as planned. Chronic ki dney disease 994806368 N18.32 Back to baseline.C ontinue to avoid nephrotoxi c meds as able.Monit or labs.Renal consult prn. Gastroesop hageal reflux disease without esophagitis 012800826 K21.9 No current sxs.Contin ue omeprazole 20 mg qdMonitor sxs. Gout 37522650 M10.09 No current sxs.Contin ue allopurino l 100 mg qdMonitor for flare. Hyperlipidemia 16567710 E78.49 Continue fenofibrat e 160 mg qdMonitor as outpt. Hypothyroidism 71821717 E03.8 In hx.TSH WNL in 11/2022Moni tor as outpt Essential hypertension 82485767 I10 BP borderline at times, but acceptable for age.BP goal for this elderly woman is permissive HTN, with SBP<150 and DBP<90Cont inue lasix 20 mg qd, hydralazin e 25 mg BID and metoprolol 25 mg qd.Monitor BP and labs.No need to restart lisinopril at this time Hypomagnesemia 565025845 E83.42 Continue Mg+ 400 mg qd until 08/30, then recheck level Vitamin D deficiency 347 11678 E55.9 Continue ergocalcif denisse 50,000 IU every 14 days.Monit or levels [id number] TATI CURRIE [address] [place] [address] 08/31/2023 11:38:57 09/08/2023 12:37:11 Bacteremia 2408159 R78.81 continuece fazolin 1 gm bid to 2ollow up with vascular Type 2 tiara betes mellitus 43987729 E11.9 200-280's mainlyhumu mahesh/reg 70/30 50 units bidmonitor glucose Chronic ki dney disease 694157313 N18.9 monitor labsavoid nephrotoxi c meds Gastroesop hageal reflux disease without esophagitis 040129234 K21.9 mag ox 400 mg daily to 08/30omepraz ole 20 mg daily Gout 91248738 M10.9 allopurino l 100 mg dailyD3 1250 e36axpy Hyperlipidemia 72566709 E78.5 fenofibrat e 160 mg daily Hypothyroidism 69538131 E03.9 hx of Essential hypertension 86196438 I10 lasix 20 mg dailyhydra lazine 25 mg bidtoprol 25 mg dailymonit or bplisinopr il stopped in hospital [id number] TATI CURRIE [address] [place] [address] 09/02/2023 09:40:27 09/08/2023 13:38:51 Bacteremia 8224558 R78.81 continueMS SA right footcefazo mahesh 1 gm bid to 22follow up with vascular Type 2 tiara betes mellitus 27856700 E11.9 200-280's mainlychan ged back to humulin/re g 70/30 50 units bidmonitor glucose Osteomyeli tis of right foot 5427279381 066363 M86.271 S/P I&D and debridemen t. Vasc. surgeon (Dr. Friedman) felt that all diseased bone was removed.Co ntinue cefazolin 1 gm IV BID until 2/ to complete 6 wk course.Con tinue wound care as ordered.F/ U with Dr. Friedman as planned. Edema of l ower extremity 411103794 R60.0 chronic BLEright greater than left [id number] TATI CURRIE [address] [address] 09/07/2023 13:02:41 09/13/2023 15:17:43 Bacteremia 2129237 R78.81 continueMS SA right footcefazo mahesh 1 gm bid to 2ollow up with vascular Type 2 tiara betes mellitus 22683756 E11.9 lispro SSChumulin /reg 70/30 50 units bidmonitor glucose Osteomyeli tis of right foot 6577126895 900263 M86.271 S/P I&D and debridemen t. Vasc. surgeon (Dr. Friedman) felt that all diseased bone was removed.Co ntinue cefazolin 1 gm IV BID until 2 to complete 6 wk course.Con tinue wound care as ordered.F/ U with Dr. Friedman as planned. Edema of l ower extremity 847791867 R60.0 chronic BLEright greater than left [id number] TATI CURRIE [address] [address] 09/10/2023 06:52:27 09/15/2023 13:31:46 Bacteremia 3283709 R78.81 continueMS SA right footcefazo mahesh 1 gm bid to 2ollow up with vascular Type 2 tiara betes mellitus 35241278 E11.9 I spoke with patient today. previously was on humulin 70/30 50 units bid that was decreased to 25 units BID.patien t bs noted to be high 200-300s insulin was changed back to previous dose 50 units. BS continued in the 200-300s range but she did have 2 episode if hypoglycem ia per NN 58 and 66. insulin was decreased to 30 units. Per nursing pt son does not want any changes in her insulin dose. Pt tells me that she has been taking this dose for yrs. lispro SSChumulin /reg 70/30 30 units bidmonitor glucose Osteomyeli tis of right foot 2004032326 828019 M86.271 S/P I&D and debridemen t. Vasc. surgeon (Dr. Friedman) felt that all diseased bone was removed.Co ntinue cefazolin 1 gm IV BID until 2/2 to complete 6 wk course.Con tinue wound care as ordered.F/ U with Dr. Friedman as planned. Edema of l ower extremity 418114390 R60.0 chronic BLEright greater than left [id number] TATI CURRIE [address] [address] 09/14/2023 07:53:08 09/17/2023 08:57:48 Bacteremia 4278441 R78.81 continueMS SA right footcefazo mahesh 1 gm bid to 2/2follow up with vascular Type 2 tiara betes mellitus 24882816 E11.9 I spoke with patient today. previously was on humulin 70/30 50 units bid that was decreased to 25 units BID.rosmery weber bs noted to be high 200-300s insulin was changed back to previous dose 50 units. BS continued in the 200-300s range but she did have 2 episode if hypoglycem ia per NN 58 and 66. insulin was decreased to 30 units. Per nursing pt son does not want any changes in her insulin dose. Pt tells me that she has been taking this dose for yrs. lispro SSChumulin /reg 70/30 30 units bidmonitor glucose Osteomyeli tis of right foot 0724138429 084475 M86.271 S/P I&D and debridemen t. Vasc. surgeon (Dr. Friedman) felt that all diseased bone was removed.Co ntinue cefazolin 1 gm IV BID until 2/2 to complete 6 wk course.Con tinue wound care as ordered.F/ U with Dr. Friedman as planned. Edema of l ower extremity 844571475 R60.0 chronic BLEright greater than left [id number] TATI CURRIE [address] [address] 09/17/2023 08:23:28 09/22/2023 11:50:26 Bacteremia 2544088 R78.81 continueMS SA right footcefazo mahesh 1 gm bid to 2/2follow up with vascular Type 2 tiara betes mellitus 64730903 E11.9 lispro SSChumulin /reg 70/30 30 units bidmonitor glucose Osteomyeli tis of right foot 9575687087 699293 M86.271 S/P I&D and debridemen t. Vasc. surgeon (Dr. Friedman) felt that all diseased bone was removed.Co ntinue cefazolin 1 gm IV BID until 09/24 to complete 6 wk course.Con tinue wound care as ordered.F/ U with Dr. Friedman as planned. Edema of l ower extremity 156926978 R60.0 chronic BLEright greater than left [id number] TATI CURRIE [address] [address] 09/21/2023 07:59:18 09/29/2023 08:59:51 Bacteremia 0958748 R78.81 continuePR SA right footcefazo mahesh 1 gm bid to 2ollow up with vascular Type 2 tiara betes mellitus 82818430 E11.9 lispro SSChumulin /reg 70/30 30 units bidmonitor glucose Osteomyeli tis of right foot 3092170024 032343 M86.271 S/P I&D and debridemen t. Vasc. surgeon (Dr. Friedman) felt that all diseased bone was removed.Co ntinue cefazolin 1 gm IV BID until 09/24 to complete 6 wk course.Con tinue wound care as ordered.F/ U with Dr. Friedman as planned. Edema of l ower extremity 628089705 R60.0 chronic BLEright greater than left [id number] TATI CURRIE [address] [address] 09/24/2023 12:21:41 09/29/2023 13:31:08 Bacteremia 3215478 R78.81 resolved Type 2 tiara betes mellitus 21403840 E11.9 humulin/re g 70/30 50 units bid Chronic ki dney disease 986060730 N18.9 monitor labsavoid nephrotoxi c meds Gastroesop hageal reflux disease without esophagitis 374060845 K21.9 mag ox 400 mg daily to 08/30omepraz ole 20 mg daily Gout 03604819 M10.9 allopurino l 100 mg dailyD3 1250 s71aedh Hyperlipidemia 07619036 E78.5 fenofibrat e 160 mg daily Hypothyroidism 97642770 E03.9 TSH WNL in 11/2022Moni tor as outptcurre ntly not on medication . Essential hypertension 58961835 I10 lasix 20 mg dailyhydra lazine 25 mg bidtoprol 25 mg daily Osteomyeli tis of right foot 6256782577 516902 M86.271 S/P I&D and debridemen t. Vasc. surgeon (Dr. Friedman) felt that all diseased bone was removed.co mpleted IV cefazolin 1 gm IV BID 09/24/23Cont inue wound care as ordered.F/ U with Dr. Friedman as planned. Hypomagnesemia 737219280 E83.42 monitor outpt labs Vitamin D deficiency 347 85924 E55.9 Continue ergocalcif denisse 50,000 IU every 14 days.Monit or levels [id number] Janee Davis MD [address] [address] 12/28/2023 15:33:48 01/13/2024 12:52:53 Chronic diastolic heart failure 864790678 I50.32 Appears euvolemic. Continue furosemide 40 mg qd and hydralazin e 25 mg BID.Monito r resp. status, fluid status, wts and labs. Paroxysmal atrial fibrillation 172947572 I48.0 Rate in good control on diltiazem 120 mg qd.Continu e eliquis 5 mg BID for AC.Monitor HR and bleeding risk. Type 2 tiara betes mellitus 09643999 E11.9 This AM FBS was 88. Last time she was here fastings tended to be ok, but with high sugars later in the day.HgA1C was 7.1 this AMContinue Humulin 70/30 20U BID and SSI.Monito r fingerstic ks TID Chronic ki dney disease 516921841 N18.32 Back to baseline.C ontinue to avoid nephrotoxi c meds as able.Monit or labs.Renal consult prn. Essential hypertension 22203799 I10 BP borderline at times, but acceptable for age.BP goal for this elderly woman is permissive HTN, with SBP<150 and DBP<90Cont inue meds as above.Rebeca tor BP and labs. Gastroesop hageal reflux disease without esophagitis 341189819 K21.9 No current sxs.Contin ue omeprazole 20 mg qdMonitor sxs. Gout 03495025 M10.09 No current sxs.Contin ue allopurino l 100 mg qdMonitor for flare. Hyperlipidemia 40483740 E78.49 Continue fenofibrat e 160 mg qdMonitor as outpt. Hypothyroidism 97698561 E03.8 In hx.TSH WNL inpt.Monit or as outpt Hypomagnesemia 314565799 E83.42 Continue Mg+ 400 mg BID.Monito r levels Vitamin D deficiency 347 44255 E56.8 Vit D supplement is ordered as cholecalci ferol 5000 IU every 14 days.Is supposed to be ergocalcif denisse 50,000 IU qd, will change.Mon itor levels Anemia 243303035 D64.89 Multifacto rial.Follo ws with Dr. White and gets procrit every few wks (has been irregular due to hospitaliz ations).Mo nitor labs Closed bim alleolar fracture of right ankle 8834968468 8839075 S82.841D Four wks from original injury.Con tinue PT/OT for strengthen ing, balance, gait training, safety and function.C ontinue APAP 1000 mg q 4 hrs prn, NTE 3000 mg/dContin ue fall precaution s.Monitor for safety.F/U with ortho as planned. [id number] TATI CURRIE AMELIA [address] [place] [address] [place] [address] 01/03/2024 13:24:31 01/05/2024 10:19:57 Chronic diastolic heart failure 265696845 I50.32 continue lasix 40 mg dailyconti nue potassium 20 meq daily Paroxysmal atrial fibrillation 191648511 I48.0 Cardizem 120 mg dailyconti nue eliquis 2.5 mg BID Type 2 tiara betes mellitus 30578576 E11.9 With some hypoglycem ia.continu e Humulin 70/30 20 units BID and SSI continued. continue fingerstic ks QID Essential hypertension 31506758 I10 BP goal for this elderly woman is permissive HTN, with SBP<150 and DBP<90Cont inue lasix 40 mg qd, hydralazin e 25 mg BID lasix 40 mg dailyMonit or BP and labs. Open wound of left lower leg 4421333266 5689295 S81.802A patient son reports that she gets wound care at [facility] and she suppose to have calcium alginate and zinc applied to and around left lower extremity wound. He wants this to continue until wound MD can eval.wound MD alarcon and treatwigeovanny ordered to cleanse wound with NS apply calcium alginate and zinc ben wound. [id number] TATI CURRIE [address] [address] 01/07/2024 14:10:11 01/10/2024 13:39:22 Open wound of left lower leg 4139794163 7778383 S81.802A patient son reports that she gets wound care at [facility] and she suppose to have calcium alginate and zinc applied to and around left lower extremity wound. He wants this to continue until wound MD can eval.wound MD alarcon and treatantolin ordered to cleanse wound with NS apply calcium alginate and zinc ben wound. Chronic di astolic heart failure 878211738 I50.32 continue lasix 40 mg dailyconti nue potassium 20 meq daily Paroxysmal atrial fibrillation 124034480 I48.0 Cardizem 120 mg dailyconti nue eliquis 2.5 mg BID Type 2 tiara betes mellitus 02321942 E11.9 With some hypoglycem ia.continu e Humulin 70/30 20 units BID and SSI continued. continue fingerstic ks QID Essential hypertension 57480932 I10 BP goal for this elderly woman is permissive HTN, with SBP<150 and DBP<90Cont inue lasix 40 mg qd, hydralazin e 25 mg BID lasix 40 mg dailyMonit or BP and labs. [id number] TATI CURRIE [address] [address] 01/11/2024 10:33:27 01/13/2024 16:16:44 Open wound of left lower leg 4412903601 8071363 S81.802A patient son reports that she gets wound care at [facility] and she suppose to have calcium alginate and zinc applied to and around left lower extremity wound. He wants this to continue until wound MD latoya alarcon.wound MD alarcon and treatantolin ordered to cleanse wound with NS apply calcium alginate and zinc ben wound. Chronic di astolic heart failure 497358285 I50.32 continue lasix 40 mg dailyconti nue potassium 20 meq daily Paroxysmal atrial fibrillation 351479163 I48.0 Cardizem 120 mg dailyconti nue eliquis 2.5 mg BID Type 2 tiara betes mellitus 10003899 E11.9 With some hypoglycem ia.continu e Humulin 70/30 20 units BID and SSI continued. continue fingerstic ks QID Essential hypertension 54205245 I10 BP goal for this elderly woman is permissive HTN, with SBP<150 and DBP<90Cont inue lasix 40 mg qd, hydralazin e 25 mg BID lasix 40 mg dailyMonit or BP and labs. Anemia 291504797 D64.89 H/H trending down this weekstarte d procrit 10/16 and scheduled for bi weeklyunsu re when she last receivedwi ll follow up with patient son. [id number] TATI CURRIE [facility] [address] [place] [address] 01/13/2024 10:07:39 01/25/2024 10:52:36 Open wound of left lower leg 1116887089 5903552 S81.802A patient son reports that she gets wound care at [facility] and she suppose to have calcium alginate and zinc applied to and around left lower extremity wound. He wants this to continue until wound MD latoya alarcon.wound MD alarcon and quinton ordered to cleanse wound with NS apply calcium alginate and zinc ben wound. Chronic di astolic heart failure 622283548 I50.32 continue lasix 40 mg dailyconti nue potassium 20 meq daily Paroxysmal atrial fibrillation 172008310 I48.0 Cardizem 120 mg dailyconti nue eliquis 2.5 mg BID Type 2 tiara betes mellitus 64860064 E11.9 With some hypoglycem ia.continu e Humulin 70/30 20 units BID and SSI continued. continue fingerstic ks QID Essential hypertension 20782715 I10 BP goal for this elderly woman is permissive HTN, with SBP<150 and DBP<90Cont inue lasix 40 mg qd, hydralazin e 25 mg BID lasix 40 mg dailyMonit or BP and labs. Anemia 631438314 D64.89 HX of normochrom ic normocytic anemiaH/H trending down this week - tends to fluctuates tarted procrit 03687 10/16 and scheduled for bi weeklyRece ived doses on 10/27, 11/10, 11/24, 12/19 and 01/11/24 Bimalleola r fracture of ankle 674952657 S82.841A chronic with [facility] arthropath y with deformity ankle and midfoothx of infection with osteomyeli tis August 2023follow ed by [facility]- last seen on 01/07/24- recommend 2 tx option 1.conserva tive treatment wit off loading as much as possible, wear heel protector boot.2. Surgical reconstruc tion [id number] TATI CURRIE [address] [place] [address] 01/20/2024 09:44:29 01/25/2024 11:59:00 Open wound of left lower leg 3395218238 0425839 S81.802A continue calcium alginate and zinc left lower extremity woundwound MD alarcon and quinton ordered to cleanse wound with NS apply calcium alginate and zinc ben wound. Chronic di astolic heart failure 181691599 I50.32 stablecont inue lasix 40 mg dailyconti nue potassium 20 meq daily Paroxysmal atrial fibrillation 076674585 I48.0 HR 69Cardizem 120 mg dailyconti nue eliquis 2.5 mg BID Type 2 tiara betes mellitus 53382012 E11.9 With some hypoglycem ia.continu e Humulin 70/30 20 units BID and SSI continued. continue fingerstic ks QID Anemia 623818513 D64.89 HX of normochrom ic normocytic anemiaH/H trending down this week - tends to fluctuates tarted procrit 48624 10/16 and scheduled for bi weeklyRece ived doses on 10/27, 11/10, 11/24, 12/19 and 01/11/24 Bimalleola r fracture of ankle 404779837 S82.841A chronic with [facility] arthropath y with deformity ankle and midfoothx of infection with osteomyeli tis August ed by [facility]- last seen on 01/07/24- recommend 2 tx option 1.conserva tive treatment wit off loading as much as possible, wear heel protector boot.2. Surgical reconstruc tion [id number] TATI CURRIE [address] [place] [address] 01/25/2024 10:02:09 01/31/2024 15:51:53 Open wound of left lower leg 3910601543 3773225 S81.802A continue calcium alginate and zinc left lower extremity woundwound MD alarcon and treatmunirall ordered to cleanse wound with NS apply calcium alginate and zinc ben wound. Chronic di astolic heart failure 291866455 I50.32 continue lasix 40 mg dailyconti nue potassium 20 meq daily Paroxysmal atrial fibrillation 294263479 I48.0 Cardizem 120 mg dailyconti nue eliquis 2.5 mg BID Type 2 tiara betes mellitus 01176470 E11.9 no recent hypoglycem ic events.con tinue Humulin 70/30 20 units BID and SSI continued. continue fingerstic ks QID Anemia 460268397 D64.89 recent labs stable,HX of normochrom ic normocytic anemiaH/H trending down this week - tends to fluctuates tarted procrit 22061 10/16 and scheduled for bi weeklyRece ived doses on 10/27, 11/10, 11/24, 12/19 and 01/11/24 Bimalleola r fracture of ankle [id number] S82.841A dressing intact, pain is controlled chronic with charcot arthropath y with deformity ankle and midfoothx of infection with osteomyeli tis August 2023follow ed by [facility]- last seen on 01/07/24- recommend 2 tx option 1.conserva tive treatment wit off loading as much as possible, wear heel protector boot.2. Surgical reconstruc tion [id number] TATI CURRIE [address] [place] [id number] 01/28/2024 15:29:14 02/01/2024 08:26:24 Open wound of left lower leg [id number] S[facility].802A [facility] with NS apply calcium alginate and zinc ben wound.elev ate left foot/heel when sitting to keep DTI well perfused Chronic di astolic heart failure 332831619 I50.32 continue lasix 40 mg dailyconti nue potassium 20 meq daily Paroxysmal atrial fibrillation 997700343 I48.0 Cardizem 120 mg dailyconti nue eliquis 2.5 mg BID Type 2 tiara betes mellitus 14165444 E11.9 no recent hypoglycem ic events.con tinue Humulin 70/30 20 units BID and SSI continued. continue fingerstic ks QID Anemia 295852871 D64.89 recent labs stable,HX of normochrom ic normocytic anemiacont inue procrit 30247 10/16 and scheduled for bi weekly Bimalleola r fracture of ankle [id number] S82.841A she gets [facility] was seen on 01/23 and will f/u in 2 weeksconti nue with current dressing change. 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 Surgical reconstruc tion [id number] TATI CURRIE [facility] [address] [place] [address] [place] [id number] 02/01/2024 10:24:39 02/04/2024 08:49:56 Open wound of left lower leg [id number] 8097243 S81.802A continue to cleanse wound with NS apply calcium alginate and zinc ben wound.elev ate left foot/heel when sitting to keep DTI well perfused Chronic di astolic heart failure 873930689 I50.32 continue lasix 40 mg dailyconti nue potassium 20 meq daily Paroxysmal atrial fibrillation 572676219 I48.0 Cardizem 120 mg dailyconti nue eliquis 2.5 mg BID Type 2 tiara betes mellitus 77176659 E11.9 no recent hypoglycem ic events.con tinue Humulin 70/30 20 units BID and SSI continued. continue fingerstic ks QID Anemia 284658331 D64.89 recent labs stable,HX of normochrom ic normocytic anemiacont inue procrit 05256 10/16 and scheduled for bi weekly Bimalleola r fracture of ankle [id number] S82.841A She [facility] was seen on 01/23 and will f/u in 2 weeksconti nue with current dressing change. 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 Surgical reconstruc tion Chronic ki dney disease 558826070 N18.32 monitor labsavoid nephrotoxi c meds Essential hypertension 34410153 I10 blood pressure has been stable 120-130sBP goal for this elderly woman is permissive HTN, with SBP<150 and DBP<90Cont inue lasix 40 mg qd, hydralazin e 25 mg BID lasix 40 mg dailyMonit or BP and labs. Gout 37804819 M10.09 allopurino l 100 mg dailynot reported recent flare up. [id number] TATI CURRIE [address] [place] [address] [place] [address] 02/04/2024 09:44:41 02/07/2024 14:37:26 Open wound of left lower leg [id number] 1000676 S81.802A continue to cleanse wound with NS apply calcium alginate and zinc ben wound.elev ate left foot/heel when sitting to keep DTI well perfused Chronic di astolic heart failure 586521027 I50.32 euvolemicc ontinue lasix 40 mg dailyconti nue potassium 20 meq daily Paroxysmal atrial fibrillation 936048519 I48.0 Cardizem 120 mg dailyconti nue eliquis 2.5 mg BID Type 2 tiara betes mellitus 03616025 E11.9 BGLs mainly under 200's, a few noted in the 400s. patient and son are very particular about insulin dosing, so will not adjust.con tinue Humulin 70/30 20 units BID and SSI continued. 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 Surgical reconstruc tion Essential hypertension 38839925 I10 BP goal for this elderly woman is permissive HTN, with SBP<150 and DBP<90Cont inue lasix 40 mg qd, hydralazin e 25 mg BID lasix 40 mg dailyMonit or BP and labs. [id number] TATI CURRIE [address] [place] [id number] 02/07/2024 11:53:48 02/09/2024 16:49:24 Open wound of left lower leg [id number] 3842099 S81.802A continue to cleanse wound with NS apply calcium alginate and zinc ben wound.elev ate left foot/heel when sitting to keep DTI well perfused Chronic di astolic heart failure 447608115 I50.32 continue lasix 40 mg dailyconti nue potassium 20 meq daily Paroxysmal atrial fibrillation 125822803 I48.0 Cardizem 120 mg dailyconti nue eliquis 2.5 mg BID Type 2 tiara betes mellitus 45734161 E11.9 continue Humulin 70/30 20 units BID and SSI continued. continue fingerstic ks QID Anemia 485779502 D64.89 continue procrit 17807 10/16 and scheduled for bi weekly Essential hypertension 30785405 I10 Continue lasix 40 mg qd, hydralazin e 25 mg BID lasix 40 mg dailyMonit or BP and labs. [id number] TATI CURRIE [address] [address] 02/10/2024 09:22:17 02/16/2024 10:42:27 Open wound of left lower leg [id number] 1898831 S81.802A continue to cleanse wound with NS apply calcium alginate and zinc ben wound. PCC updatedele vate left foot/heel when sitting to keep DTI well perfused Chronic di astolic heart failure 832648285 I50.32 continue lasix 40 mg dailyconti nue potassium 20 meq daily Paroxysmal atrial fibrillation 102202898 I48.0 Cardizem 120 mg dailyconti nue eliquis 2.5 mg BID Type 2 tiara betes mellitus 14037047 E11.9 continue Humulin 70/30 20 units BID and SSI continued. continue fingerstic ks QIDno reported hypo/hyper glycemic events. Essential hypertension 18061791 I10 Continue lasix 40 mg qd, hydralazin e 25 mg BID lasix 40 mg dailyMonit or BP and labs. [id number] Janee Davis MD [address] [address] 02/14/2024 21:04:27 03/14/2024 07:28:32 Chronic diastolic heart failure 377206845 I50.32 Appears euvolemic. Continue lasix 40 mg qd and KCl 20 meq qd to prevent hypokalemi a.Monitor resp. status, fluid status, wts and labs. Paroxysmal atrial fibrillation 716234735 I48.0 Rate in good control on meds as above.Cont inue eliquis 2.5 mg BID for AC.Monitor HR and bleeding risk. Type 2 tiara betes mellitus 06817429 E11.9 In adequate control.Co ntinue Humulin 70/30 20U BID and SSIContinu e fingerstic ks QID Essential hypertension 98828761 I10 In good control.Co ntinue lasix 40 mg qd, hydralazin e 25 mg BID, diltiazem 120 mg qd, and lasix 40 mg qdMonitor BP and labs. 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 Essential hypertension 66879432 I10 Continue lasix 40 mg qd, hydralazin e 25 mg BID lasix 40 mg dailyMonit or BP and labs. Chronic di astolic heart failure 410373748 I50.32 continue lasix 40 mg dailyconti nue potassium 20 meq daily Paroxysmal atrial fibrillation 394017027 I48.0 Cardizem 120 mg dailyconti nue eliquis 2.5 mg BID Type 2 tiara betes mellitus 20436108 E11.9 continue Humulin 70/30 20 units BID and SSI continued. continue fingerstic ks QIDno reported hypo/hyper glycemic events. Chronic ki dney disease 308665610 N18.32 Back to baseline.C ontinue to avoid nephrotoxi c meds as able.Monit or labs.Renal consult prn. Closed bim alleolar fracture of right ankle 0455298682 5590954 S82.841D Continue APAP 1000 mg q 4 hrs prn, NTE 3000 mg/dContin ue fall precaution s.Monitor for safety.F/U with ortho Gastroesop hageal reflux disease without esophagitis 577636737 K21.9 Continue omeprazole 20 mg qd Gout 74386372 M10.09 Continue allopurino l 100 mg qdMonitor for flare. Hyperlipidemia 47796980 E78.49 Continue fenofibrat e 160 mg qdMonitor as outpt. Hypothyroidism 87815442 E03.8 not on medsTSH WNL inpt.Monit or as outpt Hypomagnesemia 984269924 E83.42 Continue Mg+ 400 mg BID.Monito r levels Vitamin D deficiency 347 56385 E56.8 ergocalcif denisse 50,000 IU qdMonitor levels Anemia 862348244 D64.89 Multifacto rial.justo nue procrit 80571 bi weekly Health Concerns Section Related Observation LastModified by Organization Detai ls LastModified Time None Recorded Concern Status LastModified by Organization Details LastModified Time None Recorded Advance Directives Directive Y: Payers Encounter Date Sequence Insurance Name Policy Number Policy Bravo Covered Member ID Bravo Member ID Guarantor Name 02/04/2024 1 [place] [employer] Susan M Piecuch [id number] Susan Piecuch 02/04/2024 2 [place] [id number] Susan Piecuch [id number] Susan Piecuch 02/07/2024 1 [place] [employer] [employer] Susan M Piecuch [id number] Susan Piecuch 02/07/2024 2 [place] [id number] Susan Piecuch [id number] Susan Piecuch 02/10/2024 1 [place] [employer] Susan M Piecuch [id number] 2 Susan Piecuch 02/10/2024 2 [place] [id number] Susan Piecuch [id number] Susan Piecuch 02/14/2024 1 [place] [employer] Susan Evonne Piecuch [id number] 2 Susan Piecuch 02/14/2024 2 [place] [id number] Susan Piecuch [id number] Susan Piecuch 02/18/2024 1 [place] [employer] Susan M Piecuch [id number] 2 Susan Piecuch 02/18/2024 2 [place] [id number] Susan Piecuch [id number] Susan Piecuch Notes Date Note Type [...] broke her right ankle, most recently at [facility] for a CHF exacerbation.She initially presented to the [facility] on 11/26 after an unknown injury. Found to have an Acute displaced bimalleolar fracture with ankle mortise disruption. Complicated by chronic pain from right foot Charcot arthropathy. She was splinted and instructed in strict NWB status and d/c to [facility]. Of note she had just been dxed with new onset Afib on 11/24 and started on diltiazem and apixaban.Returned to [facility] on 12/13, several days after d/c from [facility], because of difficulty ambulating at home and unable to help her due to his own issues. D/C on 12/15 to [facility].Was sent to the [facility] ED on 12/17 because of SOB and [...] no acute nursing concerns. TATI CURRIE [address] [facility], [address], [place], [address], [facility] 02/04/2024 11:01:05 02/07/2024 text/html This is an 88 yo woman seen today for acute rounding visit. 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 Patient has been in and out of rehabs and hosp since 11/26 when she broke her right ankle, most recently at [facility] for a CHF exacerbation.She initially presented to the [facility] on 11/26 after an unknown injury. Found to have an Acute displaced bimalleolar fracture with ankle mortise disruption. Complicated by chronic pain from right foot Charcot arthropathy. She was splinted and instructed in strict NWB status and d/c to [facility]. Of note she had just been dxed with new onset Afib on 11/24 and started on diltiazem and apixaban.Returned to [facility] on 12/13, several days after d/c from [facility], because of difficulty ambulating at home and unable to help her due to his own issues. D/C on 12/15 to [facility].Was sent to the [facility] ED on 12/17 because of SOB and AMS.Labs and vitals were WNL (except Na+147 and BNP 222) CXR showed pulmonary edema with small pleural effusions. Neg for RSV/influenza and covid.EKG showed NSR and she was continued on diltiazem and apixaban.She was txed with IV lasix and K+A left dhillon wound was followed by wound care. TATI CURRIE [address] [facility], [address], [place], [address], [employer] 02/07/2024 14:37:38 02/10/2024 text/html This is an [...] and s/p MSSA sepsis. TATI CURRIE [address] [facility], [address], [place], [address], [facility] 02/10/2024 12:44:47 02/14/2024 text/html I am seeing this 88 yo woman for an acute visit today to f/u on RLE fx, ulcers and NWB status.Son has had concerns about mother refusing wound care and this is being addressed by nursing staff.She was seen at the [facility] wound clinic on 02/06 and it was [...] and s/p MSSA sepsis. Janee Davis MD [address] [place] [address], [address], [place], [address], [facility] 03/11/2024 19:10:29 02/18/2024 text/html This is an 88 yo woman due for discharge today. Patient has been in and out of rehabs and hosp since 11/26 when she broke her right ankle, most recently at [facility] for a CHF exacerbation.She initially presented to the [facility] on 11/26 after an unknown injury. Found to have a right Acute displaced bimalleolar fracture with ankle mortise disruption. Complicated by chronic pain from right foot Charcot arthropathy. She was splinted and instructed in strict NWB status and d/c to [facility]. Of note she had just been dxed with new onset Afib on 11/24 and started on diltiazem and apixaban.Returned to [facility] on 12/13, several days after d/c from [facility], because of difficulty ambulating at home and unable to help her due to his own issues. D/C on 12/15 to [facility].Was sent to the [facility] ED on 12/17 because of SOB and AMS.Labs and vitals were WNL (except Na+147 and BNP 222) CXR showed pulmonary edema with small pleural effusions. Neg for RSV/influenza and covid.EKG showed NSR and she was continued on diltiazem and apixaban.She was txed with IV lasix and K+A left dhillon wound was followed by wound care.She was transferred to [facility] on cho was done on 12/23 [...] and s/p MSSA sepsis. TATI CURRIE [address] [facility], [address], [place], [address], [facility] [employer] 02/18/2024 14:26:35 OBGyn Episode No OBEpisode recorded.
== END 2024-09-14 14:43 | disposition home or self-care (01) ==
PROVIDERS: PCP Internal Medicine; Visit Provider Internal Medicine
DX: E11.9 Type 2 diabetes mellitus without complications (principal); I10 Essential (primary) hypertension

== ENCOUNTER → 2024-09-14 13:55 | Outpatient (BNVA) | payer MEDICARE, SELFPAY | PROVIDERS: PCP Internal Medicine; Visit Provider Internal Medicine | DX: E11.9 Type 2 diabetes mellitus without complications (principal); I10 Essential (primary) hypertension | CPT/HCPCS: 83036; 99212 ==

== ENCOUNTER 2024-10-25 11:24 | Outpatient (REF) | payer MEDICARE, SELFPAY ==
[2024-10-25 11:57] LABS: MANUAL DIFF FLAG NO
[2024-10-25 12:03] LABS: Basophils Percent Auto 0.3 % (0-2); Eosinophils Absolute Auto 0.1 X10*3/uL (0.0-0.4); Eosinophils Percent Auto 1.9 % (0-4); Hematocrit 34.7 % (37.0-47.0); Hemoglobin 10.8 g/dl (12.0-16.0); Imm Gran Abs Auto 0.03 X10*3/uL (0.00-0.03); Imm Gran Pct Auto 0.5 % (0.0-0.4); Lymphocytes Absolute Auto 1.1 X10*3/uL (1.2-4.9); Lymphocytes Percent Auto 17.7 % (20-40); Mean Corpuscular HGB Conc 31.1 g/dl (31.0-35.0); Mean Corpuscular Hemoglobin 25.8 pg (27.0-33.0); Mean Corpuscular Volume 82.8 fL (80.0-98.0); Mean Platelet Volume 12.1 fL (9.4-12.3); Monocytes Absolute Auto 0.3 X10*3/uL (0.1-1.2); Monocytes Percent Auto 4.8 % (2-11); Neutrophils Absolute Auto 4.6 x10*3/uL (2.0-8.3); Neutrophils Percent Auto 74.8 % (45-73); Platelet Count 257 X10*3/uL (160-400); Red Blood Count 4.19 X10*6/uL (4.20-5.50); White Blood Count 6.2 X10*3/uL (4.8-10.8)
--- OUTSIDE RECORDS SUMMARY | 2024-10-25 13:50 | XMS_ITS | Encounter Summary ---
Author Organization [facility] Address [address] [address] Phone Care Team Providers Care Class C Truck Driver Name Role Phone Christopher Zamudio MD Primary Care Provider [phone] Encounter Details Date Type Department Care Team (Late st Contact Info) Description 09/26/2024 2:00 PM EST Office Visit [facility] [address] [address] Neo Rollins MD [address] [address] Chronic kidney disease, stage 4 (severe) (HCC) (Primary Dx); Anemia in chronic kidney disease Social History Tobacco Use Types Packs/Day Years [...] on file documented as of this encounter Last Filed Vital Signs Vital Sign Reading Time Taken Comments Blood Pressure 139/67 09/26/2024 1:53 PM EST Pulse 56 09/26/2024 1:53 PM EST Temperature - - Respiratory Rate - - Oxygen Saturation 98% 09/26/2024 1:53 PM EST Inhaled Oxygen Concentration - - Weight - - Height - - Body Mass Index - - documented in this encounter Patient Instructions * Patient Instructions* Neo Rollins MD - 09/26/2024 2:00 PM EST No NSAIDS - Do not take non-steroidal anti-inflammatory medications (NSAIDS) such as Ibuprofen (Advil, Motrin, etc), Naproxen (Aleve, etc), Celecoxib (Celebrex) or Ketoprofen. These common arthritis medications can cause permanent kidney damage or worsen your kidney damage. For mild occasional pain, Acetaminophen (Tylenol, etc) is safe for your kidneys. Sodium and Your CKD Diet: How to Spice Up Your Cooking What is sodium? Sodium is a mineral found naturally in foods and is the major part of table salt. What are the effects of eating too much sodium? When your kidneys are not healthy, extra sodium and fluid build up in your body. This can cause swollen ankles, puffiness, a rise in blood pressure, shortness of breath, and/or fluid around your heart and lungs. See the following table for suggestions on how to reduce sodium in your diet. LIMIT THE [AMOUNT OF... FOOD TO LIMIT BECAUSE OF THEIR HIGH SODIUM CONTENT ACCEPTABLE SUBSTITUTES SALT & SALT SEASONINGS Table salt Seasoning salt Garlic salt Onion salt Celery salt Lemon pepper Lite salt Meat tenderizer Bouillon cubes Flavor enhancers Fresh garlic, fresh onion, garlic powder, onion powder, black [pepper, lemon juice, low-sodium/salt-free seasoning blends, vinegar SALTY FOODS Barbecue sauce Steak sauce Soy sauce Teriaky sauce Oyster sauce Salted Snacks such as Crackers Potato chips Orient chips Pretzels Tortilla chips Nuts Popcorn [place] seeds Homemade or low- sodium sauces and salad dressings; Vinegar, dry mustard, unsalted popcorn, pretzels, tortilla or corn chips Cured Foods Ham Salt pork [place] Sauerkraut Pickles, pickle relish Lox & Leroy Olives Fresh beef, veal, pork, poultry, fish, eggs [place] MEATS Hot Dogs Cold cuts, deli meats Pastrami Sausage Corned beef Spam Low-salt deli meats PROCESSED FOODS Buttermilk Cheese Canned: Soups Tomato products Vegetable juices Canned vegetables Convenience Foods such as: TV Dinners Canned raviolis [place] Macaroni & Cheese Spaghetti Frozen prepared foods Fast foods Natural cheese (1-2 oz Per week) Homemade or jordon,1- sodium soups, canned food without added salt Homemade casseroles without added salt, made with fresh or raw vegetables, fresh meat, mikhail, pasta, or unsalted canned vegetables Some salt or sodium is needed for body water balance. But when your kidneys lose the ability to control sodium and water balance, you may experience the following: thirst fluid gain high blood pressure discomfort during dialysis By using less sodium in your diet, you can control these problems. Hints to keep your sodium intake down Cook with herbs and spices instead of salt. (Refer to Spice Up Your Cooking section for further suggestions.) Read food labels and choose those foods low in sodium. Avoid salt substitutes and specialty low-sodium foods made with salt substitutes because they are high in potassium. When eating out, ask for meat or fish without salt. Ask for gravy or sauce on the side; these may contain large amounts of salt and should be used in small amounts . Limit use of canned, processed and frozen foods. Some information about reading labels Understanding the terms: Sodium Free - Only a trivial amount of sodium per serving. Very Low Sodium - 35 mg or less per serving. Low Sodium - 140 mg or less per serving. Reduced Sodium - Foods in which the level of sodium is reduced by 25%. Light or Lite in Sodium - Foods in which the sodium is reduced by at least 50% . Simple rule of thumb : If salt is listed in the first five ingredients, the item is probably too high in sodium to use. All food labels now have milligrams (mg) of sodium listed. Follow these steps when reading the sodiwn information on the label: 1. Know how much sodium you are allowed each day. Remember that there are 1000 milligrams (mg) in 1gram. For [id number], if your diet prescription is 2 grams of sodium , your limit is 2000 milligrams per day. Consider the sodium value or other food to be eaten during the day. 2. Look at the package label. Check the serving size. Nutrition values are expressed per sveta g. How does this compare to your total daily allowance? If the sodium level is 500 mg or more per serving, the item is not a good choice. 3. Compare labels of similar products. Select the lowest sodium level for the same serving size. How to Spice Up Your Cooking Giving up salt does not mean giving up flavor. Learn to season your food with herbs and spices. Be creative and experiment for a new and exciting flavor. What kinds of spices and herbs should I use instead of salt to add flavor? Try the following spices with the foods listed. Allspice: Use with beef, fish, beets, cabbage, canots, peas, fruit. Basil: Use with beef, pork, most vegetables. [place]: Use with beef, pork, most vegetables. Ian: Use with beef, pork, green beans, cauliflower, cabbage, beets, asparagus, and in dips and marinades. Cardamom: Use with fruit and in baked goods. Bello: Use with beef, chicken, pork, fish, green beans, carrots and in marinades. Dill: Use with beef, chicken, green beans, cabbage, carrots, peas and in dips. Autumn: Use with beef, chicken, pork, green beans, cauliflower and eggplant. Marjoram: Use with beef, chicken, pork, green beans, cauliflower and eggplant. [place]: Use with chicken, pork, cauliflower, peas and in marinades. Thyme: Use with beef, chicken, pork, fish, green beans, beets and carrots. Navneet: Use with chicken, pork, eggplant and in dressing. Tarragon: Use with fish, chicken, asparagus, beets, cabbage, cauliflower and in marinades. Tips for cooking with herbs and spices Purchase spices and herbs in small amounts . When they sit on the shelf for years they lose their flavor. Use no more than ?? teaspoon of dried spice (?? of fresh) per pound of meat. Add ground spices to food about 15 minutes before the end of the cooking period. Add whole spices to food at least one hour before the end of the cooking period. Combine herbs with oil or butter, set for 30 minutes to bring out their flavor, then brush on foodswhile they cook, or brush meat with oil and sprinkle herbs one hour before coolcing. Crush dried herbs before adding to foods. Can I use salt substitutes? Caution! If you are told to limit potassium in your diet, be very cautious about using salt substitutes because most of them contain some form of potassium. Check with your doctor or dietitian beforeusing and salt substitute. [place] and create your own seasoning containing those spices that you like. If you would like to become a volunteer and find out more about what's happening where you live, contact your local [facility] Aff[facility]. Blood pressure monitoring education: Monitor home blood pressure values after sitting for 5 minutes with back and arm support. Keep a log. Bring your log and blood pressure cuff to your next visit. documented in this encounter Progress Notes * Neo Rollins MD - 09/26/2024 2:00 PM EST Images from the original note were not included. Patient Name: Susan Laurent, Female Date of : 1935, 88 y.o. Date: 09/26/24 [] New Patient [x] Established Patient [] New Hospital Follow Up [] Established Hospital Follow Up [] Telemed Visit [] H&P Referring MD: Christopher Zamudio MD PCP: Christopher Zamudio MD Reason For Visit CKD 4, DM, HTN Susan Laurent is a 88 y.o. female seen today in f/u regarding stage 4 CKD on backdrop of DM and HTN. Son with her today as usual and she is doing well. Cont to get EPO injections ( [facility] Has large boot for R foot No longer on lasix Last Scr 1.4 ( 08/2024) Denies chest pain or shortness of breath. No blood in the urine or difficulties urinating. Complains of mild arthritic complaints but avoids use of NSAIDs. The following portions of the patient's chart were reviewed in this encounter and updated as appropriate: Allergies Constitutional: Negative for chills and fever. Respiratory: Negative for cough and shortness of breath. Cardiovascular: Positive for leg swelling. Negative for chest pain and palpitations. Gastrointestinal: Negative for abdominal pain, nausea and vomiting. Genitourinary: Negative for dysuria, frequency, hematuria and urgency. Musculoskeletal: Positive for joint pain. Full 13 point review of systems unremarkable except as noted above. Past Medical History: Diagnosis Date Essential hypertension Gastroesophageal reflux disease Gout Hyperlipidemia Type 2 diabetes mellitus (HCC) Past Surgical History: Procedure Laterality Date GALLBLADDER SURGERY OTHER SURGICAL HISTORY l leg vericose vein ligation Social History Tobacco Use Smoking status: Never Smokeless tobacco: Not on file Substance Use Topics Alcohol use: No Family History Problem Relation Age of Onset Diabetes Mother Cancer Father Heart disease Mother Diabetes Sibling Diabetes Child Diabetes Father Hypertension Sibling Hypertension Father Hypertension Mother Hypertension Child Stroke Mother Gout Child Current Outpatient Medications Medication Sig Dispense Refill Accu-Chek Radha Plus test strip TEST THREE TIMES DAILY DIRECTED allopurinol (ZYLOPRIM) 100 MG tablet Take 100 mg by mouth daily apixaban (Eliquis) 2.5 MG tablet Take 2.5 mg by mouth in the morning and 2.5 mg in the evening. epoetin jayna (EPOGEN,PROCRIT) 04146 UNIT/ML injection Inject 40,000 Units under the skin every 14 (fourteen) days fenofibrate (TRIGLIDE) 160 MG tablet Take 160 mg by mouth daily hydrALAZINE 50 MG tablet Take 1 tablet (50 mg total) by mouth in the morning and 1 tablet (50 mg total) in the evening. 180 tablet 3 insulin NPH-insulin regular (HumuLIN 70/30 KWIKPEN) (70-30) 100 UNIT/ML injection as directed Micro[facility] USE TO TEST BLOOD SUGAR THREE TIMES DAILY omeprazole (PriLOSEC) [address] capsule Take 1 capsule by mouth 1 (one) time each day triamcinolone (KENALOG) 0.5 % ointment by Other route 2 (two) times a day furosemide (LASIX) 20 MG tablet Take 20 mg by mouth daily (Patient not taking: Reported on 09/26/2024) metoprolol tartrate (LOPRESSOR) 50 MG tablet Take 0.5 tablets (25 mg total) by mouth 1 (one) time each day 90 tablet 3 No current facility-administered medications for this visit. Allergies Allergen Reactions Codeine Other (see comments) Metoprolol pt says she hallucinates Objective: Vitals: 09/26/24 1353 BP: 139/67 Pulse: 56 SpO2: 98% 128/70 by me Vitals reviewed. Constitutional: She appears well-developed. No distress. Cardiovascular: Normal rate, regular rhythm and normal heart sounds. She exhibits edema. Pulmonary/Chest: Effort normal and breath sounds normal. No respiratory distress. Abdominal: Soft. There is no abdominal tenderness. No hernia. Skin: Skin is warm and dry. Psychiatric: She has a normal mood and affect. Her behavior is normal. No results found for: EGFRAFR Est GFR Non Date Value Ref Range Status 06/30/2023 24 ML/MIN/1.73 M2 Final Comment: Creatinine based estimated glomerular filtration (eGFR) in adults is calculated using the National Kidney Foundation recommended 2020 CKD-EPI equation. Estimates GFR from serum creatinine, age and sex. Testing performed or reported by [facility], a Service of [facility], [address] [place] [id number] Cristhian Moon MD, Butcher'S Assistant BOO# [id number] Chemistry Lab Units 09/05/24 1254 02/22/24 1114 06/30/23 1618 06/15/23 1416 01/26/23 1525 CREATININE mg/dL 1.71* 2.11* 2.0* 2.45* 2.08* BUN mg/dL 42* 48* 52* 51* 58* EGFRNAFR ML/MIN/1.73 M2 -- -- 24 -- -- GLUCOSE MG/DL -- -- 123* -- -- POTASSIUM mmol/L 4.0 4.6 4.9 5.2* 4.9 SODIUM mmol/L 138 142 141 138 141 CO2 mmol/L * 25 21* 21* 24 CHLORIDE mmol/L 108 108 102 104 105 ALBUMIN g/dL 3.3* 3.3* 4.5 3.6 -- Bone Mineral Lab Units 09/05/24 1254 02/22/24 1114 06/30/23 1618 06/15/23 1416 01/26/23 1525 CALCIUM mg/dL 9.5 9.8 10.7* 10.5* 10.3* PHOSPHORUS mg/dL 2.6* 2.9 2.6 2.6* -- MAGNESIUM mg/dL 1.7 1.7 -- 2.0 -- PTH pg/mL 81.0* 113.6* -- 43 -- VITAMIN D ng/mL -- 21.1* -- 33.1 -- CBC Lab Units 09/05/24 1254 02/22/24 1114 06/30/23 1618 06/15/23 1416 01/26/23 1525 WBC AUTO X10*3/uL 5.9 8.0 7.3 6.5 9.1 RBC AUTO X10*6/uL 3.67* 3.55* 3.27* 2.96* 3.31* MCV fL 82.6 87.0 94.8 91.2 95.8 HEMATOCRIT % 30.3* 30.9* 31.0* 27.0* 31.7* HEMOGLOBIN g/dl 9.3* 9.7* 9.8* 8.7* 10.3* PLATELETS AUTO X10*3/uL 260 318 317 266 210 Urine Lab Units 06/30/23 1618 06/15/23 1523 PROT/CREAT RATIO UR -- TNP ALB MG/G CREAT UR MG/DL 47.7* 30.6 TNP Urine Lab Units 09/05/24 1306 06/30/23 1618 06/15/23 1523 PH U 5.5 5.5 6.0 5.5 COLOR U Yellow Yellow -- Yellow GLUCOSE UR -- NEGATIVE -- GLUCOSE U MG/DL mg/dL Negative Negative -- Negative KETONES U MG/DL -- NEGATIVE -- WBC UR HPF /HPF 11-20* 2 0-5 RBC UR HPF /HPF 0-2 <1 0-2 UROBILINOGEN U MG/DL MG/DL -- NORMAL -- Iron Studies Lab Units 06/30/23 1618 FERRITIN NG/ML 238 TIBC MCG/DL 328 IRON SATURATION % 10* PLAN: Assessment & Plan 88 Y/O wF STAGE 4 CKD DIABETIC HYPERTENSIVE PATIENT 1. CKD 4: most c/w DN/HTN based on kidney Bx in past 2. DM: controlled 3. HTN: controlled.goal < 130/80 4. Metabolic Bone Disease of CKD: cont to track CA, Phos, HCO3, PTH and vit D levels and treat accordingly 5. HLD: goal LDL < 70 6. Wound care--wounds resolved 7. Anemia: cont epo and/or IV Fe as per Dr White ( [facility]) PLAN: cont current meds and monitor cloeley for poss r/s lasix; cont vit D; cont track BPs; avoid NSIADs; avoid use of [id number] given h/o leg wounds, she wants to hold off on Kerendia 1. Chronic kidney disease, stage 4 (severe) (HCC) 2. Anemia in chronic kidney disease Orders Placed This Encounter PTH, Intact Renal Function Panel Urinalysis with microscopic Urine Albumin / Creatinine Ratio Urine Culture Protein, Total, Random Urine w/Creatinine (Protein/Creat Ratio) Vitamin D 25 Hydroxy CBC Phosphorus Magnesium Albumin Calcium hydrALAZINE 50 MG tablet Return in about 6 months (around 03/26/2025). Neo Rollins MD documented in this encounter Plan of Treatment Upcoming Encounters Date Type Department Care Team (Late st Contact Info) Description 03/27/2025 1:30 PM EDT Office Visit [facility] [address] [address] Neo Rollins MD [address] [address] Scheduled Orders Name Type Priority Associated Diagnoses Orde r Schedule PTH, Intact Lab Routine Chronic kidney disease, stage 4 (severe) (HCC) Anemia in chronic kidney disease Expected: 02/23/2025, Expires: 10/24/2025 Renal Function Panel Lab Routine Chronic kidney disease, stage 4 (severe) (HCC) Anemia in chronic kidney disease Expected: 02/23/2025, Expires: 10/24/2025 Urinalysis with microscopic Lab Routine Chronic kidney disease, stage 4 (severe) (HCC) Anemia in chronic kidney disease Expected: 02/23/2025, Expires: 10/24/2025 Urine Albumin / Creatinine Ratio Lab Routine Chronic kidney disease, stage 4 (severe) (HCC) Anemia in chronic kidney disease Expected: 02/23/2025, Expires: 10/24/2025 Urine Culture Lab Routine Chronic kidney disease, stage 4 (severe) (HCC) Anemia in chronic kidney disease Expected: 02/23/2025, Expires: 10/24/2025 Protein, Total, Random Urine w/Creatinine (Protein/Creat Ratio) Lab Routine Chronic kidney disease, stage 4 (severe) (HCC) Anemia in chronic kidney disease Expected: 02/23/2025, Expires: 10/24/2025 Vitamin D 25 Hydroxy Lab Routine Chronic kidney disease, stage 4 (severe) (HCC) Anemia in chronic kidney disease Expected: 02/23/2025, Expires: 10/24/2025 CBC Lab Routine Chronic kidney disease, stage 4 (severe) (HCC) Anemia in chronic kidney disease Expected: 02/23/2025, Expires: 10/24/2025 Phosphorus Lab Routine Chronic kidney disease, stage 4 (severe) (HCC) Anemia in chronic kidney disease Expected: 02/23/2025, Expires: 10/24/2025 Magnesium Lab Routine Chronic kidney disease, stage 4 (severe) (HCC) Anemia in chronic kidney disease Expected: 02/23/2025, Expires: 10/24/2025 Albumin Lab Routine Chronic kidney disease, stage 4 (severe) (HCC) Anemia in chronic kidney disease Expected: 02/23/2025, Expires: 10/24/2025 Calcium Lab Routine Chronic kidney disease, stage 4 (severe) (HCC) Anemia in chronic kidney disease Expected: 02/23/2025, Expires: 10/24/2025 documented as of this encounter Visit Diagnoses Diagnosis Chronic kidney disease, stage 4 (severe) (HCC)- Primary Anemia in chronic kidney disease documented in this encounter Care Teams Class C Truck Driver Relationship Specialty Start Date End Date Christopher Zamudio MD [address] [place] [address] PCP - General 09/02/20 documented as of this encounter
--- OUTSIDE RECORDS SUMMARY | 2024-10-25 13:50 | XMS_ITS | Encounter Summary ---
Author Organization [facility] Address [address] [facility] [address] [place] [address] Phone Care Team Providers Care Metal Fabricator Apprentice Name Role Phone Christopher Zamudio MD Primary Care Provider [phone] Encounter Details Date Type Department Care Team (Late Contact Info) Description 09/28/2024 Telephone [facility] [address] [facility] [address] [place] [address] Concepción Ibrahim [address] [facility] [address] [place] [id number] Social History Tobacco Use Types Packs/Day Years [...] on file documented as of this encounter Miscellaneous Notes * Telephone Encounter - Concepción Ibrahim - 09/28/2024 4:13 PM EST Pt's son Matt called asking why is Susan taking Hydralazine 50 mg am and pm, when she usually takes 25 mg am and pm. He said he don't recall talking about this change, he will like a call back. documented in this encounter Plan of Treatment Upcoming Encounters Date Type Department Care Team (Late Contact Info) Description 03/27/2025 1:30 PM EDT Office Visit [facility] [address] [address] Neo Rollins MD [address] [address] documented as of this encounter Visit Diagnoses Not on filedocumented in this encounter Care Teams Metal Fabricator Apprentice Relationship Specialty Start Date End Date Christopher Zamudio MD [address] [place] [address] PCP - General 09/02/20 documented as of this encounter
--- OUTSIDE RECORDS SUMMARY | 2024-10-25 13:50 | XMS_ITS | Clinical Summary ---
Author Organization [employer] Address [address] [place] [address] [address] [place] [address] Care Team Providers Care Forensic Science Examiner Name Role Phone Unavailable Primary Care Provider [...] Alcohol/Substance Use Screening 1947 Tobacco Screening 1947 Pneumococcal Vaccine: 50+ Years (1 of 1 - PCV) 1985 Zoster Vaccines (1 of 2) 1985 RSV Patients and Patients Aged 60 years [...]
--- OUTSIDE RECORDS SUMMARY | 2024-10-25 13:50 | XMS_ITS | Data Portability ---
Author Organization [facility], Main Office Address [address] [place] [address] Care Team Providers Care Supervisor [employer] Name Role Phone TISHA MANZO Primary Care [...] Address Organization Details Recorded Time Bacteremi a 5991065 Active 2022 MSSA foot infection Not Available [facility] 4 02:47:47 Type 2 diabetes mellitus 10865984 Active 2022 Not Available [facility] 4 02:47:47 Hypothyro idism 63903150 Active 2022 Not Available [facility] 4 02:47:47 Chronic kidney disease 072352925 Active 2022 Not Available [facility] 4 02:47:47 Gout 18897771 Active 2022 Not Available [facility] 4 02:47:47 Gastroeso phageal reflux disease without esophagit is 670190153 Active 2022 Not Available [facility] 4 02:47:47 Hyperlipi demia 67933779 Active 2022 Not Available [facility] 4 02:47:47 Essential hypertens ion 04409743 Active 2022 Not Available [facility] 4 02:47:47 Hypomagne semia 882282580 Active 2023 Not Available [facility] 4 02:47:47 Vitamin D deficienc y 28117813 Active 2023 Not Available [facility] 4 02:47:47 Chronic diastolic heart failure 741304416 Active 2023 Janee Davis MD [address] [facility], [facility] [address], [place], [address] , [facility] 4 10:48:17 Anemia 317883545 Active 2023 Janee Davis MD 38 [facility], [address], [place], [address] , [facility] 4 11:10:38 Bimalleol ar fracture of ankle 248781653 Active 2023 TATI CURRIE [address] [facility], [address], [place], [address] , [facility] 4 14:06:55 Stasis dermatiti s and 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 Please review this document and add these problems to the patient's chart manually as needed. Problem Notes None recorded. Medical Equipment None Reported. Allergies Allergen ID Allergen Name Allergen Category Reaction Reaction Severity Criticality Documentation Date Start Date Code Code System Note Provider Name and Address Organization Details Recorded Time 98033 codeine medicatio n Not available Not available Not available 08/20/2023 2670 RxNorm Not Available Not Available Not Available Vitals Date Recorded Body height Heart rate Respiratory rate Body temperature Systolic blood pressure Diastolic blood pressure Provider Name and Address Organization Details Last Updated DateTime 4 170.18 cm 80 /min 16 /min 98 [degF] 129 mm[Hg] 78 mm[Hg] TATI CURRIE [address] , [address], [place], [address], [facility] 4 10:52:49 Date Recorded Body height Body temperature Respiratory rate Heart rate Systolic blood pressure Diastolic blood pressure Provider Name and Address Organization Details Last Updated DateTime 4 170.18 cm 97.3 [degF] 18 /min 68 /min 122 mm[Hg] 68 mm[Hg] TATI CURRIE [address] , [address], [place], [address], [facility] 4 14:33:03 Date Recorded Body height Heart rate Respiratory rate Body temperature Systolic blood pressure Diastolic blood pressure Provider Name and Address Organization Details Last Updated DateTime 4 170.18 cm 74 /min 18 /min 98 [degF] 132 mm[Hg] 74 mm[Hg] TATI CURRIE [address] , [address], [place], [address], [facility] 4 12:19:44 Date Recorded Body height Body mass index (BMI) Body weight Heart rate Respiratory rate Body temperature Oxygen saturation Oxygen saturation in Arterial blood by Pulse oximetry Systolic blood pressure Diastolic blood pressure Provider Name and Address Organization Details Last Updated DateTime 4 170.18 cm 31.6 kg/m2 98440.6 6 g 79 /min 18 /min 97.4 [degF] 100 % 100 % 141 mm[Hg] 75 mm[Hg] Janee Davis MD [address] , [address], [place], [address], [facility] 4 21:07:19 Date Recorded Body height Heart rate Respiratory rate Body temperature Oxygen saturation Oxygen saturation in Arterial blood by Pulse oximetry Systolic blood pressure Diastolic blood pressure Provider Name and Address Organization Details Last Updated DateTime 4 170.18 cm 79 /min 18 /min 98 [degF] 100 % 100 % 141 mm[Hg] 75 mm[Hg] TATI CURRIE [address] , [address], [place], [address], [facility] 4 14:26:02 Social History Question Answer Notes LastModified by Organizat ion Details LastModified Time Tobacco Smoking Status Never Smoker ALVARADO DEL CID NP [address] [facility], [address], [place], [address], [facility] 08/20/2023 11:16:58 Do You Have An [...] Do You Have A Medical Power Of Cold Header Operator? Yes Information not available 08/24/2023 What Was [...] adjuvanted, quadrivalent, PF 3 completed Not Available [facility] 09/30/2023 02:47:47 Td(adult) unspecified formulation 1 completed [facility] 12/28/2023 16:20:20 SARS-COV-2 (COVID-19) vaccine, UNSPECIFIED 1 completed [facility] 12/28/2023 16:20:43 SARS-COV-2 (COVID-19) vaccine, UNSPECIFIED 1 completed [facility] 12/28/2023 16:20:50 pneumococcal polysaccharide PPV23 1 completed [facility] 12/28/2023 16:21:57 SARS-COV-2 (COVID-19) vaccine, UNSPECIFIED 1 completed [facility] 12/28/2023 16:22:45 Past Encounters Encounter ID Performer Location Encounter Start Date Encounter Closed Date Diagnosis/Indication Diagnosis SNOMED-CT Code Diagnosis ICD10 Code Diagnosis Note [id number] SCOTT NOBLES [address] [place] [address] [place] [address] 08/20/2023 09:52:59 08/31/2023 13:27:41 Bacteremia 5786770 R78.81 flush picc qshiftcefa zolin 1 gm bid to 2/2followu p with vascular as planned Type 2 tiara betes mellitus 71216691 E11.9 humulin/re g 70/30 50 units bidmonitor glucose Chronic ki dney disease 521608953 N18.9 monitor labsavoid nephrotoxi c meds Gastroesop hageal reflux disease without esophagitis 063835578 K21.9 mag ox 400 mg daily to 08/30omepraz ole 20 mg daily Gout 95589893 M10.9 allopurino l 100 mg dailyD3 1250 [id number] Hyperlipidemia 79587579 E78.5 fenofibrat e 160 mg daily Hypothyroidism 50625651 E03.9 hx of Essential hypertension 88163187 I10 lasix 20 mg dailyhydra lazine 25 mg bidtoprol 25 mg dailymonit or bplisinopr il stopped in hospital [id number] ALVARADO DEL CID NP [address] [place] [address] 08/24/2023 13:44:02 08/25/2023 03:52:21 Type 2 diabetes mellitus 39164247 E11.9 humulin/re g 70/30 50 units bidmonitor glucose Bacteremia 9585014 R78.8 1 flush picc qshiftcefa zolin 1 gm bid to 2/2followu p with vascular as planned [id number] Janee Davis MD [address] [place] [address] 08/24/2023 15:18:19 08/31/2023 14:10:55 Type 2 diabetes mellitus 55349725 E11.9 With some hypoglycem ia.Humulin 70/30 was lowered from 50 units BID to 25U BID and SSI continued. Monitor fingerstic ks, will change from TID to qid, with low dose SS at hs.HgA1C was 6.7 inpt. Bacteremia 2937303 R78.8 1 As above Osteomyeli tis of right foot 6902619417 264649 M86.271 S/P I&D and debridemen t. Vasc. surgeon (Dr. Friedman) felt that all diseased bone was removed.Co ntinue cefazolin 1 gm IV BID until 09/24 to complete 6 wk course.Con tinue wound care as ordered.F/ U with Dr. Friedman as planned. Chronic ki dney disease 057166730 N18.32 Back to baseline.C ontinue to avoid nephrotoxi c meds as able.Monit or labs.Renal consult prn. Gastroesop hageal reflux disease without esophagitis 461310800 K21.9 No current sxs.Contin ue omeprazole 20 mg qdMonitor sxs. Gout 95284453 M10.09 No current sxs.Contin ue allopurino l 100 mg qdMonitor for flare. Hyperlipidemia 33622812 E78.49 Continue fenofibrat e 160 mg qdMonitor as outpt. Hypothyroidism 78786806 E03.8 In hx.TSH WNL in 11/2022Moni tor as outpt Essential hypertension 78255681 I10 BP borderline at times, but acceptable for age.BP goal for this elderly woman is permissive HTN, with SBP<150 and DBP<90Cont inue lasix 20 mg qd, hydralazin e 25 mg BID and metoprolol 25 mg qd.Monitor BP and labs.No need to restart lisinopril at this time Hypomagnesemia 976299154 E83.42 Continue Mg+ 400 mg qd until 08/30, then recheck level Vitamin D deficiency 347 67936 E55.9 Continue ergocalcif denisse 50,000 IU every 14 days.Monit or levels [id number] TATI CURRIE [address] [address] 08/31/2023 11:38:57 09/08/2023 12:37:11 Bacteremia 8653240 R78.81 continuece fazolin 1 gm bid to 2ollow up with vascular Type 2 tiara betes mellitus 86895147 E11.9 200-280's mainlyhumu mahesh/reg 70/30 50 units bidmonitor glucose Chronic ki dney disease 405002838 N18.9 monitor labsavoid nephrotoxi c meds Gastroesop hageal reflux disease without esophagitis 819398008 K21.9 mag ox 400 mg daily to 08/30omepraz ole 20 mg daily Gout 36375238 M10.9 allopurino l 100 mg dailyD3 1250 [id number] Hyperlipidemia 07108256 E78.5 fenofibrat e 160 mg daily Hypothyroidism 05251396 E03.9 hx of Essential hypertension 84524397 I10 lasix 20 mg dailyhydra lazine 25 mg bidtoprol 25 mg dailymonit or bplisinopr il stopped in hospital [id number] TATI CURRIE [address] [address] 09/02/2023 09:40:27 09/08/2023 13:38:51 Bacteremia 2456151 R78.81 continueMS SA right footcefazo mahesh 1 gm bid to 22follow up with vascular Type 2 tiara betes mellitus 90500288 E11.9 200-280's mainlychan ged back to humulin/re g 70/30 50 units bidmonitor glucose Osteomyeli tis of right foot 3085860237 410434 M86.271 S/P I&D and debridemen t. Vasc. surgeon (Dr. Friedman) felt that all diseased bone was removed.Co ntinue cefazolin 1 gm IV BID until 2/2 to complete 6 wk course.Con tinue wound care as ordered.F/ U with Dr. Friedman as planned. Edema of l ower extremity 281889483 R60.0 chronic BLEright greater than left [id number] TATI CURRIE [address] [address] 09/07/2023 13:02:41 09/13/2023 15:17:43 Bacteremia 1570910 R78.81 continueMS SA right footcefazo mahesh 1 gm bid to 2/2follow up with vascular Type 2 tiara betes mellitus 00433432 E11.9 lispro SSChumulin /reg 70/30 50 units bidmonitor glucose Osteomyeli tis of right foot 4660317909 818462 M86.271 S/P I&D and debridemen t. Vasc. surgeon (Dr. Friedman) felt that all diseased bone was removed.Co ntinue cefazolin 1 gm IV BID until 2 to complete 6 wk course.Con tinue wound care as ordered.F/ U with Dr. Friedman as planned. Edema of l ower extremity 576479027 R60.0 chronic BLEright greater than left [id number] TATI CURRIE [address] [address] 09/10/2023 06:52:27 09/15/2023 13:31:46 Bacteremia 5034490 R78.81 continueMS SA right footcefazo mahesh 1 gm bid to 2/2follow up with vascular Type 2 tiara betes mellitus 35501755 E11.9 I spoke with patient today. previously [...] bidmonitor glucose Osteomyeli tis of right foot 8158310898 787341 M86.271 S/P I&D and debridemen t. Vasc. surgeon (Dr. Friedman) felt that all diseased bone was removed.Co ntinue cefazolin 1 gm IV BID until 2/2 to complete 6 wk course.Con tinue wound care as ordered.F/ U with Dr. Friedman as planned. Edema of l ower extremity 085451277 R60.0 chronic BLEright greater than left [id number] TATI CURRIE [address] [address] 09/14/2023 07:53:08 09/17/2023 08:57:48 Bacteremia 2726102 R78.81 continueMS SA right footcefazo mahesh 1 gm bid to 2/2follow up with vascular Type 2 tiara betes mellitus 35780508 E11.9 I spoke with patient today. previously [...] bidmonitor glucose Osteomyeli tis of right foot 9910392904 069710 M86.271 S/P I&D and debridemen t. Vasc. surgeon (Dr. Friedman) felt that all diseased bone was removed.Co ntinue cefazolin 1 gm IV BID until 2/2 to complete 6 wk course.Con tinue wound care as ordered.F/ U with Dr. Friedman as planned. Edema of l ower extremity 680525139 R60.0 chronic BLEright greater than left [id number] TATI CURRIE [address] [address] 09/17/2023 08:23:28 09/22/2023 11:50:26 Bacteremia 0728806 R78.81 continueMS SA right footcefazo mahesh 1 gm bid to 2/2follow up with vascular Type 2 tiara betes mellitus 22984187 E11.9 lispro SSChumulin /reg 70/30 30 units bidmonitor glucose Osteomyeli tis of right foot 6973253622 645250 M86.271 S/P I&D and debridemen t. Vasc. surgeon (Dr. Friedman) felt that all diseased bone was removed.Co ntinue cefazolin 1 gm IV BID until 09/24 to complete 6 wk course.Con tinue wound care as ordered.F/ U with Dr. Friedman as planned. Edema of l ower extremity 790017655 R60.0 chronic BLEright greater than left [id number] TATI CURRIE [address] [address] 09/21/2023 07:59:18 09/29/2023 08:59:51 Bacteremia 2508141 R78.81 continueNC SA right footcefazo mahesh 1 gm bid to 2/ollow up with vascular Type 2 tiara betes mellitus 69106809 E11.9 lispro SSChumulin /reg 70/30 30 units bidmonitor glucose Osteomyeli tis of right foot 5410258260 200767 M86.271 S/P I&D and debridemen t. Vasc. surgeon (Dr. Friedman) felt that all diseased bone was removed.Co ntinue cefazolin 1 gm IV BID until 09/24 to complete 6 wk course.Con tinue wound care as ordered.F/ U with Dr. Friedman as planned. Edema of l ower extremity 085945476 R60.0 chronic BLEright greater than left [id number] TATI CURRIE [address] [place] [address] 09/24/2023 12:21:41 09/29/2023 13:31:08 Bacteremia 5610011 R78.81 resolved Type 2 tiara betes mellitus 93200088 E11.9 humulin/re g 70/30 50 units bid Chronic ki dney disease 454184027 N18.9 monitor labsavoid nephrotoxi c meds Gastroesop hageal reflux disease without esophagitis 090309022 K21.9 mag ox 400 mg daily to 08/30omepraz ole 20 mg daily Gout 52186005 M10.9 allopurino l 100 mg dailyD3 1250 y92jaot Hyperlipidemia 79937093 E78.5 fenofibrat e 160 mg daily Hypothyroidism 90007481 E03.9 TSH WNL in 11/2022Moni tor as outptcurre ntly not on medication . Essential hypertension 00017813 I10 lasix 20 mg dailyhydra lazine 25 mg bidtoprol 25 mg daily Osteomyeli tis of right foot 3810486935 969150 M86.271 S/P I&D and debridemen t. Vasc. surgeon (Dr. Friedman) felt that all diseased bone was removed.co mpleted IV cefazolin 1 gm IV BID 09/24/23Cont inue wound care as ordered.F/ U with Dr. Friedman as planned. Hypomagnesemia 904677653 E83.42 monitor outpt labs Vitamin D deficiency 347 42869 E55.9 Continue ergocalcif denisse 50,000 IU every 14 days.Monit or levels [id number] Janee Davis MD [address] [address] 12/28/2023 15:33:48 01/13/2024 12:52:53 Chronic diastolic heart failure 573976415 I50.32 Appears euvolemic. Continue furosemide 40 mg qd and hydralazin e 25 mg BID.Monito r resp. status, fluid status, wts and labs. Paroxysmal atrial fibrillation 240550944 I48.0 Rate in good control on diltiazem 120 mg qd.Continu e eliquis 5 mg BID for AC.Monitor HR and bleeding risk. Type 2 tiara betes mellitus 97737383 E11.9 This AM FBS was 88. Last time she was here fastings tended to be ok, but with high sugars later in the day.HgA1C was 7.1 this AMContinue Humulin 70/30 20U BID and SSI.Monito r fingerstic ks TID Chronic ki dney disease 717396876 N18.32 Back to baseline.C ontinue to avoid nephrotoxi c meds as able.Monit or labs.Renal consult prn. Essential hypertension 14481214 I10 BP borderline at times, but acceptable for age.BP goal for this elderly woman is permissive HTN, with SBP<150 and DBP<90Cont inue meds as above.Rebeca tor BP and labs. Gastroesop hageal reflux disease without esophagitis 605489251 K21.9 No current sxs.Contin ue omeprazole 20 mg qdMonitor sxs. Gout 28431681 M10.09 No current sxs.Contin ue allopurino l 100 mg qdMonitor for flare. Hyperlipidemia 10348124 E78.49 Continue fenofibrat e 160 mg qdMonitor as outpt. Hypothyroidism 06142107 E03.8 In hx.TSH WNL inpt.Monit or as outpt Hypomagnesemia 075341436 E83.42 Continue Mg+ 400 mg BID.Monito r levels Vitamin D deficiency 347 81405 E56.8 Vit D supplement is ordered as cholecalci ferol 5000 IU every 14 days.Is supposed to be ergocalcif denisse 50,000 IU qd, will change.Mon itor levels Anemia 519957601 D64.89 Multifacto rial.Follo ws with Dr. White and gets procrit every few wks (has been irregular due to hospitaliz ations).Mo nitor labs Closed bim alleolar fracture of right ankle 9880636658 0196824 S82.841D Four wks from original injury.Con tinue PT/OT for strengthen ing, balance, gait training, safety and function.C ontinue APAP 1000 mg q 4 hrs prn, NTE 3000 mg/dContin ue fall precaution s.Monitor for safety.F/U with ortho as planned. [id number] TATI CURRIE [address] [place] [address] [place] [facility] [address] 01/03/2024 13:24:31 01/05/2024 10:19:57 Chronic diastolic heart failure 738024830 I50.32 continue lasix 40 mg dailyconti nue potassium 20 meq daily Paroxysmal atrial fibrillation 634331287 I48.0 Cardizem 120 mg dailyconti nue eliquis 2.5 mg BID Type 2 tiara betes mellitus 41102337 E11.9 With some hypoglycem ia.continu e Humulin 70/30 20 units BID and SSI continued. continue fingerstic ks QID Essential hypertension 53482018 I10 BP goal for this elderly woman is permissive HTN, with SBP<150 and DBP<90Cont inue lasix 40 mg qd, hydralazin e 25 mg BID lasix 40 mg dailyMonit or BP and labs. Open wound of left lower leg 7723427967 1107450 S81.802A patient son reports that she gets wound care at [facility] and she suppose to have calcium alginate and zinc applied to and around left lower extremity wound. He wants this to continue until wound MD can eval.wound MD alarcon and treatwill ordered to cleanse wound with NS apply calcium alginate and zinc ben wound. [id number] TATI CURRIE [address] [address] 01/07/2024 14:10:11 01/10/2024 13:39:22 Open wound of left lower leg 2148058959 0876649 S81.802A patient son reports that she gets wound care at [facility] and she suppose to have calcium alginate and zinc applied to and around left lower extremity wound. He wants this to continue until wound MD can eval.wound MD alarcon and treatwill ordered to cleanse wound with NS apply calcium alginate and zinc ben wound. Chronic di astolic heart failure 627643453 I50.32 continue lasix 40 mg dailyconti nue potassium 20 meq daily Paroxysmal atrial fibrillation 435269722 I48.0 Cardizem 120 mg dailyconti nue eliquis 2.5 mg BID Type 2 tiara betes mellitus 56315967 E11.9 With some hypoglycem ia.continu e Humulin 70/30 20 units BID and SSI continued. continue fingerstic ks QID Essential hypertension 96899282 I10 BP goal for this elderly woman is permissive HTN, with SBP<150 and DBP<90Cont inue lasix 40 mg qd, hydralazin e 25 mg BID lasix 40 mg dailyMonit or BP and labs. [id number] TATI CURRIE [address] [address] 01/11/2024 10:33:27 01/13/2024 16:16:44 Open wound of left lower leg 5315777927 1803665 S81.802A patient son reports that she gets wound care at [facility] [place] and she suppose to have calcium alginate and zinc applied to and around left lower extremity wound. He wants this to continue until wound can dorian.wound MD alarcon and treatantolin ordered to cleanse wound with NS apply calcium alginate and zinc ben wound. Chronic di astolic heart failure 122464560 I50.32 continue lasix 40 mg dailyconti nue potassium 20 meq daily Paroxysmal atrial fibrillation 678546424 I48.0 Cardizem 120 mg dailyconti nue eliquis 2.5 mg BID Type 2 tiara betes mellitus 46313970 E11.9 With some hypoglycem ia.continu e Humulin 70/30 20 units BID and SSI continued. continue fingerstic ks QID Essential hypertension 58840941 I10 BP goal for this elderly woman is permissive HTN, with SBP<150 and DBP<90Cont inue lasix 40 mg qd, hydralazin e 25 mg BID lasix 40 mg dailyMonit or BP and labs. Anemia 616242104 D64.89 H/H trending down this weekstarte d procrit 10/16 and scheduled for bi weeklyunsu re when she last receivedwi ll follow up with patient son. [id number] TATI CURRIE [address] [place] [address] 01/13/2024 10:07:39 01/25/2024 10:52:36 Open wound of left lower leg 2329196144 8131055 S81.802A patient son reports that she gets wound care at [facility] [place] and she suppose to have calcium alginate and zinc applied to and around left lower extremity wound. He wants this to continue until wound can evspike.wound MD alarcon and quinton ordered to cleanse wound with NS apply calcium alginate and zinc ben wound. Chronic di astolic heart failure 044637630 I50.32 continue lasix 40 mg dailyconti nue potassium 20 meq daily Paroxysmal atrial fibrillation 330179545 I48.0 Cardizem 120 mg dailyconti nue eliquis 2.5 mg BID Type 2 tiara betes mellitus 36658735 E11.9 With some hypoglycem ia.continu e Humulin 70/30 20 units BID and SSI continued. continue fingerstic ks QID Essential hypertension 00545120 I10 BP goal for this elderly woman is permissive HTN, with SBP<150 and DBP<90Cont inue lasix 40 mg qd, hydralazin e 25 mg BID lasix 40 mg dailyMonit or BP and labs. Anemia 103946445 D64.89 HX of normochrom ic normocytic anemiaH/H trending down this week - tends to fluctuates tarted procrit 69273 10/16 and scheduled for bi weeklyRece ived doses on 10/27, 11/10, 11/24, 12/19 and 01/11/24 Bimalleola r fracture of ankle 921343953 S82.841A chronic with [facility] arthropath y with deformity ankle and midfoothx of infection with osteomyeli tis August 2023follow ed by [facility]- last seen on 01/07/24- recommend 2 tx option 1.conserva tive treatment wit off loading as much as possible, wear heel protector boot.2. Surgical reconstruc tion [id number] SHAE MOSELEY, TATI CISNEROS [address] [place] [address] 01/20/2024 09:44:29 01/25/2024 11:59:00 Open wound of left lower leg 8573839357 4401154 S81.802A continue calcium alginate and zinc left lower extremity woundwound MD alarcon and treatwill ordered to cleanse wound with NS apply calcium alginate and zinc ben wound. Chronic di astolic heart failure 791683717 I50.32 stablecont inue lasix 40 mg dailyconti nue potassium 20 meq daily Paroxysmal atrial fibrillation 694489677 I48.0 HR 69Cardizem 120 mg dailyconti nue eliquis 2.5 mg BID Type 2 tiara betes mellitus 62956410 E11.9 With some hypoglycem ia.continu e Humulin 70/30 20 units BID and SSI continued. continue fingerstic ks QID Anemia 967270993 D64.89 HX of normochrom ic normocytic anemiaH/H trending down this week - tends to fluctuates tarted procrit 42448 10/16 and scheduled for bi weeklyRece ived doses on 10/27, 11/10, 11/24, 12/19 and 01/11/24 Bimalleola r fracture of ankle 777069657 S82.841A chronic with [facility] arthropath y with deformity ankle and midfoothx of infection with osteomyeli tis August ed by [facility]- last seen on 01/07/24- recommend 2 tx option 1.conserva tive treatment wit off loading as much as possible, wear heel protector boot.2. Surgical reconstruc tion [id number] TATI CURRIE [address] [address] 01/25/2024 10:02:09 01/31/2024 15:51:53 Open wound of left lower leg 8862633417 0096907 S81.802A continue calcium alginate and zinc left lower extremity woundwound MD alarcon and treatwill ordered to cleanse wound with NS apply calcium alginate and zinc ben wound. Chronic di astolic heart failure 723420227 I50.32 continue lasix 40 mg dailyconti nue potassium 20 meq daily Paroxysmal atrial fibrillation 928283592 I48.0 Cardizem 120 mg dailyconti nue eliquis 2.5 mg BID Type 2 tiara betes mellitus 86755159 E11.9 no recent hypoglycem ic events.con tinue Humulin 70/30 20 units BID and SSI continued. continue fingerstic ks QID Anemia 281883125 D64.89 recent labs stable,HX of normochrom ic normocytic anemiaH/H trending down this week - tends to fluctuates tarted procrit 33413 10/16 and scheduled for bi weeklyRece ived doses on 10/27, 11/10, 11/24, 12/19 and 01/11/24 Bimalleola r fracture of ankle 408640306 S82.841A dressing intact, pain is controlled chronic with [facility] arthropath y with deformity ankle and midfoothx of infection with osteomyeli tis August ed by [facility]- last seen on 01/07/24- recommend 2 tx option 1.conserva tive treatment wit off loading as much as possible, wear heel protector boot.2. Surgical reconstruc tion [id number] TATI CURRIE [address] [id number] 01/28/2024 15:29:14 02/01/2024 08:26:24 Open wound of left lower leg [id number] S[facility].802A [facility] with NS apply calcium alginate and zinc ben wound.elev ate left foot/heel when sitting to keep DTI well perfused Chronic di astolic heart failure 677020310 I50.32 continue lasix 40 mg dailyconti nue potassium 20 meq daily Paroxysmal atrial fibrillation 482679167 I48.0 Cardizem 120 mg dailyconti nue eliquis 2.5 mg BID Type 2 tiara betes mellitus 89088665 E11.9 no recent hypoglycem ic events.con tinue Humulin 70/30 20 units BID and SSI continued. continue fingerstic ks QID Anemia 280082101 D64.89 recent labs stable,HX of normochrom ic normocytic anemiacont inue procrit 00183 10/16 and scheduled for bi weekly Bimalleola r fracture of ankle 075588760 S82.841A she [facility] was seen on 01/23 and will f/u in 2 weeksconti nue with current dressing change. 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 Surgical reconstruc tion [id number] TATI CURRIE [address] [place] [place] [address] 02/01/2024 10:24:39 02/04/2024 08:49:56 Open wound of left lower leg [id number] S81.802A continue to cleanse wound with NS apply calcium alginate and zinc ben wound.elev ate left foot/heel when sitting to keep DTI well perfused Chronic di astolic heart failure 602032300 I50.32 continue lasix 40 mg dailyconti nue potassium 20 meq daily Paroxysmal atrial fibrillation 195850476 I48.0 Cardizem 120 mg dailyconti nue eliquis 2.5 mg BID Type 2 tiara betes mellitus 86270270 E11.9 no recent hypoglycem ic events.con tinue Humulin 70/30 20 units BID and SSI continued. continue fingerstic ks QID Anemia 511406414 D64.89 recent labs stable,HX of normochrom ic normocytic anemiacont inue procrit 03453 10/16 and scheduled for bi weekly Bimalleola r fracture of ankle 802294177 S82.841A [facility] was seen on 01/23 and will f/u in 2 weeksconti nue with current dressing change. 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 Surgical reconstruc tion Chronic ki dney disease 037437953 N18.32 monitor labsavoid nephrotoxi c meds Essential hypertension 48503558 I10 blood pressure has been stable 120-130sBP goal for this elderly woman is permissive HTN, with SBP<150 and DBP<90Cont inue lasix 40 mg qd, hydralazin e 25 mg BID lasix 40 mg dailyMonit or BP and labs. Gout 00303786 M10.09 allopurino l 100 mg dailynot reported recent flare up. [id number] TATI CURRIE AMELIA [address] [place] [phone] 02/04/2024 09:44:41 02/07/2024 14:37:26 Open wound of left lower leg [id number] S81.802A continue to cleanse wound with NS apply calcium alginate and zinc ben wound.elev ate left foot/heel when sitting to keep DTI well perfused Chronic di astolic heart failure 084773507 I50.32 euvolemicc ontinue lasix 40 mg dailyconti nue potassium 20 meq daily Paroxysmal atrial fibrillation 601997582 I48.0 Cardizem 120 mg dailyconti nue eliquis 2.5 mg BID Type 2 tiara betes mellitus 74439146 E11.9 BGLs mainly under 200's, a few noted in the 400s. patient and son are very particular about insulin dosing, so will not adjust.con tinue Humulin 70/30 20 units BID and SSI continued. continue fingerstic ks QID Anemia 572769066 D64.89 continue procrit 78538 2 and scheduled for bi weekly Bimalleola r fracture of ankle 815089924 S82.841A [facility] was seen on 01/23 and [...] protector boot.2. Surgical reconstruc tion Essential hypertension 69576853 I10 BP goal for this elderly woman is permissive HTN, with SBP<150 and DBP<90Cont inue lasix 40 mg qd, hydralazin e 25 mg BID lasix 40 mg dailyMonit or BP and labs. [id number] TATI CURRIE [address] [place] [phone] 02/07/2024 11:53:48 02/09/2024 16:49:24 Open wound of left lower leg [id number] 7670932 S81.802A continue to cleanse wound with NS apply calcium alginate and zinc ben wound.elev ate left foot/heel when sitting to keep DTI well perfused Chronic di astolic heart failure 242661186 I50.32 continue lasix 40 mg dailyconti nue potassium 20 meq daily Paroxysmal atrial fibrillation 535612039 I48.0 Cardizem 120 mg dailyconti nue eliquis 2.5 mg BID Type 2 tiara betes mellitus 71573763 E11.9 continue Humulin 70/30 20 units BID and SSI continued. continue fingerstic ks QID Anemia 923148350 D64.89 continue procrit 48930 2 and scheduled for bi weekly Essential hypertension 90309165 I10 Continue lasix 40 mg qd, hydralazin e 25 mg BID lasix 40 mg dailyMonit or BP and labs. [id number] TATI CURRIE [address] [address] 02/10/2024 09:22:17 02/16/2024 10:42:27 Open wound of left lower leg [id number] S81.802A continue to cleanse wound with NS apply calcium alginate and zinc ben wound. PCC updatedele vate left foot/heel when sitting to keep DTI well perfused Chronic di astolic heart failure 821087523 I50.32 continue lasix 40 mg dailyconti nue potassium 20 meq daily Paroxysmal atrial fibrillation 362364441 I48.0 Cardizem 120 mg dailyconti nue eliquis 2.5 mg BID Type 2 tiara betes mellitus 75951488 E11.9 continue Humulin 70/30 20 units BID and SSI continued. continue fingerstic ks QIDno reported hypo/hyper glycemic events. Essential hypertension 55222558 I10 Continue lasix 40 mg qd, hydralazin e 25 mg BID lasix 40 mg dailyMonit or BP and labs. [id number] Janee Davis MD [address] [address] 02/14/2024 21:04:27 03/14/2024 07:28:32 Chronic diastolic heart failure 149040312 I50.32 Appears euvolemic. Continue lasix 40 mg qd and KCl 20 meq qd to prevent hypokalemi a.Monitor resp. status, fluid status, wts and labs. Paroxysmal atrial fibrillation 663125793 I48.0 Rate in good control on meds as above.Cont inue eliquis 2.5 mg BID for AC.Monitor HR and bleeding risk. Type 2 tiara betes mellitus 98474613 E11.9 In adequate control.Co ntinue Humulin 70/30 20U BID and SSIContinu e fingerstic ks QID Essential hypertension 39999306 I10 In good control.Co ntinue lasix 40 mg qd, hydralazin e 25 mg BID, diltiazem 120 mg qd, and lasix 40 mg qdMonitor BP and labs. 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 Essential hypertension 59441335 I10 Continue lasix 40 mg qd, hydralazin e 25 mg BID lasix 40 mg dailyMonit or BP and labs. Chronic di astolic heart failure 380310985 I50.32 continue lasix 40 mg dailyconti nue potassium 20 meq daily Paroxysmal atrial fibrillation 657208225 I48.0 Cardizem 120 mg dailyconti nue eliquis 2.5 mg BID Type 2 tiara betes mellitus 26345251 E11.9 continue Humulin 70/30 20 units BID and SSI continued. continue fingerstic ks QIDno reported hypo/hyper glycemic events. Chronic ki dney disease 484274622 N18.32 Back to baseline.C ontinue to avoid nephrotoxi c meds as able.Monit or labs.Renal consult prn. Closed bim alleolar fracture of right ankle [id number] 6077010 S82.841D Continue APAP 1000 mg q 4 hrs prn, NTE 3000 mg/dContin ue fall precaution s.Monitor for safety.F/U with ortho Gastroesop hageal reflux disease without esophagitis 056680754 K21.9 Continue omeprazole 20 mg qd Gout 16223484 M10.09 Continue allopurino l 100 mg qdMonitor for flare. Hyperlipidemia 54602091 E78.49 Continue fenofibrat e 160 mg qdMonitor as outpt. Hypothyroidism 26377902 E03.8 not on medsTSH WNL inpt.Monit or as outpt Hypomagnesemia 075428834 E83.42 Continue Mg+ 400 mg BID.Monito r levels Vitamin D deficiency 347 81553 E56.8 ergocalcif denisse 50,000 IU qdMonitor levels Anemia 075268539 D64.89 Multifacto rial.justo nue procrit 98909 bi weekly Health Concerns Section Related Observation LastModified by Organization Detai ls LastModified Time None Recorded Concern Status LastModified by Organization Details LastModified Time None Recorded Advance Directives Directive Y: Payers Encounter Date Sequence Insurance Name Policy Number Policy Bravo Covered Member ID Bravo Member ID Guarantor Name 02/04/2024 1 [place] [employer] Susan Douglass Piecuch [id number] 2 Susan Piecuch 02/04/2024 2 [place] [id number] Susan Piecuch [id number] Susan Piecuch 02/07/2024 1 [place] [employer] [employer] Susan M Piecuch [id number] Susan Piecuch 02/07/2024 2 [place] [id number] Susan Piecuch [id number] Susan Piecuch 02/10/2024 1 [place] [employer] Susan M Piecuch [id number] 2 Susan Piecuch 02/10/2024 2 [place] [id number] Susan Piecuch [id number] Susan Piecuch 02/14/2024 1 [place] [employer] Susan M Piecuch [id number] 2 Susan Piecuch 02/14/2024 2 [place] [id number] Susan Piecuch [id number] Ussan Piecuch 02/18/2024 1 [place] [employer] Susan M Piecuch [id number] 2 Susan Piecuch 02/18/2024 2 [place] [id number] Susan Piecuch [id number] Susan Piecuch Notes Date Note Type [...] a CHF exacerbation.She initially presented to the [facility] on 11/26 after an unknown injury. Found to have an Acute displaced bimalleolar fracture with ankle mortise disruption. Complicated by chronic pain from right foot Charcot arthropathy. She was splinted and instructed in strict NWB status and d/c to [facility]. Of note she had just been dxed with new onset Afib on 11/24 and started on diltiazem and apixaban.Returned to [facility] on 12/13, several days after d/c from [facility], because of difficulty ambulating at home and unable to help her due to his own issues. D/C on 12/15 to [facility] [...] no acute nursing concerns. TATI CURRIE [address] [facility], [address], [place], [address], [facility] 02/04/2024 11:01:05 02/07/2024 text/html This is an [...] a CHF exacerbation.She initially presented to the [facility] on 11/26 after an unknown injury. Found to have an Acute displaced bimalleolar fracture with ankle mortise disruption. Complicated by chronic pain from right foot Charcot arthropathy. She was splinted and instructed in strict NWB status and d/c to [facility]. Of note she had just been dxed with new onset Afib on 11/24 and started on diltiazem and apixaban.Returned to [facility] on 12/13, several days after d/c from [facility], because of difficulty ambulating at home and unable to help her due to his own issues. D/C on 12/15 to [facility] followed by wound care. TATI CURRIE [address] [facility], [address], [place], [address], [employer] 02/07/2024 14:37:38 02/10/2024 text/html This is an [...] and s/p MSSA sepsis. TATI CURRIE [address] [facility], [address], [place], [address], [facility] 02/10/2024 12:44:47 02/14/2024 text/html I am [...] and s/p MSSA sepsis. Janee Davis MD [address] [place] [address], [address], [place], [address], [facility] [employer] 03/11/2024 19:10:29 02/18/2024 text/html This is an 88 yo woman due for discharge today. Patient has been in and out of rehabs and hosp since 11/26 when she broke her right ankle, most recently at [facility] for a CHF exacerbation.She initially presented to the [facility] on 11/26 after an unknown injury. Found to have a right Acute displaced bimalleolar fracture with ankle mortise disruption. Complicated by chronic pain from right foot Charcot arthropathy. She was splinted and instructed in strict NWB status and d/c to [facility]. Of note she had just been dxed with new onset Afib on 11/24 and started on diltiazem and apixaban.Returned to [facility] on 12/13, several days after d/c from [facility], because of difficulty ambulating at home and unable to help her due to his own issues. [facility] followed by wound care.She was transferred to [facility] on cho was done on 12/23 [...] and s/p MSSA sepsis. TATI CURRIE [address] [facility], [address], [place], [address], [facility] 02/18/2024 14:26:35 OBGyn Episode No OBEpisode recorded.
--- OUTSIDE RECORDS SUMMARY | 2024-10-25 13:50 | XMS_ITS | Clinical Summary ---
Author Organization [facility] Address [address] [address] Phone Care Team Providers Care Tutorial Laboratory Supervisor Name Role Phone Christopher Zamudio MD Primary Care Provider [phone] Allergies Active Allergy Reactions Criticality Noted Date Comments Codeine Other (see comments) 02/28/2021 Metoprolol 09/26/2024 pt says she hallucinates Medications allopurinol (ZYLOPRIM) 100 MG tablet Take 100 mg by mouth daily 1 Active fenofibrate (TRIGLIDE) 160 MG tablet Take 160 mg by mouth daily 0 Active furosemide (LASIX) 20 MG tablet Take 20 mg by mouth daily 1 Active Accu-Chek Radha Plus test strip TEST THREE TIMES DAILY DIRECTED 0 Active omeprazole (PriLOSEC) [address] capsule [...] 3 3 Active epoetin jayna (EPOGEN,PROCRIT ) 33569 UNIT/ML injectionIndica tions:Anemia due to Renal Failure Inject 40,000 Units under the skin every 14 (fourteen) days Active apixaban (Eliquis) 2.5 MG tablet Take 2.5 mg by mouth in the morning and 2.5 mg in the evening. Active hydrALAZINE 25 MG tablet Take 1 tablet (25 mg total) by mouth in the morning and 1 tablet (25 mg total) in the evening. 180 tablet 5 01/03/20 25 Active hydrALAZINE (APRESOLINE) 50 MG tablet Take 1 tablet (50 mg total) by mouth 2 (two) times a day 180 tablet 3 1 09/26/19 25 Discontinu ed(Reorder (does not appear on AVS)) lisinopril (PRINIVIL,ZESTR IL) 20 MG tablet Take 1 tablet by mouth 1 (one) time each day 09/26/19 25 Discontinu ed(Alterna te therapy) hydrALAZINE 50 MG tablet Take 1 tablet (50 mg total) by mouth in the morning and 1 tablet (50 mg total) in the evening. 180 tablet 3 5 10/04/19 25 Discontinu ed(Alterna te therapy) Active Problems Problem Noted Date Diagnosed Date [...] Overview (09/16/2022): [facility]. History of malignant basal cell neoplasm of skin 01/27/2019 Overview (09/16/2022): lip Encounters Date Type Department Care Team Description 2024 Office Communication [facility] [address] [phone] Neo Rollins MD 09/28/2024 Telephone [facility] [address] [phone] Concepción Ibrahim 09/26/2024 2:00 PM EST Office Visit [facility] [address] [phone] Neo Rollins MD Chronic kidney disease, stage 4 (severe) ([facility]) (Primary Dx); Anemia in chronic kidney disease 09/05/2024 Orders Only [facility] [address] [phone] Neo Rollins MD 08/08/2024 Orders Only [facility] [place] [address] [facility] [address] [place] [address] Neo Rollins MD Chronic kidney disease, stage 4 (severe) (HCC); Type 2 diabetes mellitus with diabetic chronic kidney disease (HCC); Renal disorder due to type 2 diabetes mellitus <Diabetic nephropathy> (HCC); Anemia in chronic kidney disease from Last 3 Months Immunizations Name Administration Dates Next Due Influenza Vaccine, Quadrivalent, Adjuvanted 04/2023 Moderna SARS-COV-2 10/22/2020,09/23/2020 Pneumococcal Polysaccharide 07/15/2021 Td, Unspecified 01/21/2001 Tdap 02/03/2012,01/21/2001 Family History Medical History Relation [...] EST Inhaled Oxygen Concentration - - Weight 101 kg (223 lb 9.6 oz) 11/09/2023 2:32 PM EDT Height 165.1 cm (5' 5 ) 08/30/2020 12:00 PM EST Body Mass Index 37.21 08/30/2020 12:00 PM EST Plan of Treatment Upcoming Encounters Date Type Department Care Team (Late st Contact Info) Description 03/27/2025 1:30 PM EDT Office Visit [facility] [address] [phone] Neo Rollins MD [address] [phone] Health Maintenance Due Date Last Done Comments [...] ORDERABLES Final Re sult Performing Organization Address [facility] Co de Phone Number [place] See order comments [place] [address] * Creatinine, urine, random (09/05/2024 1:06 PM EST) Creatinine, Urine 54.35 mg/dL See order comments 09/05/2024 1:06 PM EST 09/05/2024 1:06 PM EST Neo Rollins MD LAB URINE ORDERABLES Final Re sult Performing Organization Address [facility] Co de Phone Number [place] See order comments [place] [address] * (ABNORMAL) Urinalysis with microscopic (09/05/2024 1:06 PM EST) Color Urine Yellow See orde r comments Appearance Urine Clear See order comments pH Urine 5.5 5.0 - 9.0 See order comments Glucose Urine Negative Negative mg/dL See order comments Blood, Urine Negative Negative See ord er comments Specific [place] Urine 1.015 1.005 - 1.025 See order [...] ORDERABLES Final Re sult Performing Organization Address [facility] de Phone Number [place] See order comments [place] [address] * (ABNORMAL) Urinalysis (09/05/2024 1:06 PM EST) Color Urine Yellow See orde r comments Appearance Urine Clear See order comments pH Urine 5.5 5.0 - 9.0 See order comments Glucose Urine Negative Negative mg/dL See order comments Blood, Urine Negative Negative See ord er comments Specific [place] Urine 1.015 1.005 - 1.025 See order comments Protein Urine 300 (3+)(A) Neg-Trace mg/dL See order comments Ketones, Urine Negative Negative mg/dL See order comments Nitrite, Urine Negative Negative See o rder comments Leukocyte Esterase Urine Trace(A) Negative See order comments 09/05/2024 1:06 PM EST 09/05/2024 1:06 PM EST us Neo Rollins MD LAB URINE ORDERABLES Final Re sult Performing Organization Address [facility] de Phone Number [facility] See order comments [place] [address] * (ABNORMAL) Creatinine (09/05/2024 12:54 PM EST) Creatinine Serum 1.71(H) 0.5 - 1.4 mg/dL See order comments eGFR 28 See order comments Comment: Chronic Kidney Disease: ??Estimated GFR < 60 mL/min/1.73m2 Severe Kidney Disease: ??Estimated GFR < 15 mL/min/1.73m2 09/05/2024 12:5 4 PM EST 09/05/2024 12:54 PM EST us Neo Rollins MD LAB BLOOD ORDERABLES Final Re sult Performing Organization Address [facility] Co de Phone [facility] See order comments [place] [address] * (ABNORMAL) PTH, Intact (09/05/2024 12:54 PM EST) Parathyroid Hormone, Intact 81.0(H) 8.7 - 77.1 pg/mL See order comments 09/05/2024 12:5 4 PM EST 09/05/2024 12:54 PM EST us Neo Rollins MD LAB [id number] SOLICITED RESULTS Final Result Performing Organization Address [facility] de Phone Number [place] See order comments [place] [address] * (ABNORMAL) Vitamin D 1,25 dihydroxy (09/05/2024 [...] analytical performance characteristics have been determined by [facility], [place], [place]. It has not been cleared or approved by the FDA. This assay has been validated pursuant to the CLIA regulations and is used for clinical purposes. THIS TEST WAS PERFORMED AT: [facility] [address] [place], [place] ??[address] MICAELA VEE MD,PHD 09/05/2024 12:5 4 PM EST 09/05/2024 12:54 PM EST us Neo Rollins MD LAB BLOOD ORDERABLES Final Re sult [place] See order comments [place] [address] * (ABNORMAL) CBC and Differential (09/05/2024 12:54 PM EST) WBC 5.9 4.8 - 10.8 X10*3/uL See [...] ORDERABLES Final Re sult Performing Organization Address [facility] Phone Number [place] See order comments [place] [address] * (ABNORMAL) BUN (09/05/2024 12:54 PM EST) BUN 42(H) 9 - 16 mg/dL See order comments 09/05/2024 12:5 4 PM EST 09/05/2024 12:54 PM EST us Neo Rollins MD LAB BLOOD ORDERABLES Final Re sult Performing Organization Address [facility] Phone Number [place] See order comments [place] [address] * (ABNORMAL) Phosphorus (09/05/2024 12:54 PM EST) Phosphorus, Serum 2.6(L) 2.7 - 4.5 mg/dL See order comments Blood (Blood, Venous) 09/05/2024 12:54 PM EST 09/05/2024 12:54 PM EST us Neo Rollins MD LAB BLOOD ORDERABLES Final Re sult Performing Organization Address [facility] Phone Number [facility] See order comments [place] [address] * Magnesium (09/05/2024 12:54 PM EST) Magnesium 1.7 1.6 - 2.6 mg/dL See order comments Blood (Blood, Venous) 09/05/2024 12:54 PM EST 09/05/2024 12:54 PM EST us Neo Rollins MD LAB BLOOD ORDERABLES Final Re sult Performing Organization Address [facility] Phone Number [place] See order comments [place] [address] * Calcium (09/05/2024 12:54 PM EST) Calcium 9.5 8.4 - 10.2 mg/dL See order comments Blood (Blood, Venous) 09/05/2024 12:54 PM EST 09/05/2024 12:54 PM EST us Neo Rollins MD LAB BLOOD ORDERABLES Final Re sult Performing Organization Address [facility] Phone Number [place] See order comments [place] [address] * (ABNORMAL) Albumin (09/05/2024 12:54 PM EST) Albumin 3.3(L) 3.5 - 5.0 g/dL See order comments Blood (Blood, Venous) 09/05/2024 12:54 PM EST 09/05/2024 12:54 PM EST us Neo Rollins MD LAB BLOOD ORDERABLES Final Re sult Performing Organization Address [facility] Phone Number [place] See order comments [place] [address] * (ABNORMAL) Electrolyte panel (09/05/2024 12:54 PM EST) Sodium 138 135 - 145 mmol/L See [...] ORDERABLES Final Re sult Performing Organization Address [facility] Co de Phone Number [place] See order comments [place] [address] * Hemoglobin A1c (04/18/2019 10:34 AM EDT) Hemoglobin A1C 7.0 % [place]IA Comment: ?Hemoglobin A1C Reference Range ? Adults: ??4.8 - 6.0 % ? Non diabetic: ??< 6.0 % ? Goal: ??< 7.0 % Additional Action Suggested: ??> 8.0 % Note: ??Hemoglobin A1c results are invalid for patients ? with abnormal amounts of HbF. ??Blood transfusions ? may impact the HbA1c concentration in the patient ? sample. Estimated Average Glucose 154 MG/DL [place] Comment: eAG = Estimated average glucose which is %A1C expressed as average glucose, using the formula of the F3H-Buakhsl Average Glucose study (ADAG), Diabetes Care, Vol.31,#8, Mar. 2007 04/18/2019 10:3 4 AM EDT us Christopher Zamudio MD LAB BLOOD ORDERABLES Final Resu lt Performing Organization Address [facility] Phone Number [place] from Last 3 Months or Most Recently Relevant to Health Maintenance Insurance JACEY CANNON [id number] [facility] MEDICARE [place] [facility] [place]ID [place] Care Teams Tutorial Laboratory Supervisor Relationship Specialty Start Date End Date Christopher Zamudio MD [address] [place] [address] PCP - General 09/02/20
--- OUTSIDE RECORDS SUMMARY | 2024-10-25 13:50 | XMS_ITS | Encounter Summary ---
Author Organization [facility] Address [address] [phone] Phone Care Team Providers Care Bag Printer Name Role Phone Christopher Zamudio MD Primary Care Provider [phone] Encounter Details Date Type Department Care Team (Late Contact Info) Description 2024 Office Communication [facility] [address] [phone] Neo Rollins MD [facility] [phone] Social History Tobacco Use Types [...] EDT Office Visit [facility] [address] [phone] Neo Rollins MD [address] [phone] documented as of this encounter Visit Diagnoses Not on filedocumented in this encounter Care Teams Bag Printer Relationship Specialty Start Date End Date Christopher Zamudio MD [address] [facility] P[facility] - General 09/02/20 documented as of this encounter
--- OUTSIDE RECORDS SUMMARY | 2024-10-25 13:50 | XMS_ITS | Clinical Summary ---
Author Organization [facility] Address [address] [place] [address] Care Team Providers Care Regional Project Manager Name Role Phone Christopher Zamudio MD Primary Care Provider [phone] Surgical History Surgery Date Site/Laterality Comments CHOLECYSTECTOMY PROCEDURE: HISTORICAL CHOLECYSTECTOMY; COMMENT: 1981 LEG SURGERY 1985 PROCEDURE: HISTORICAL LEG SURGERY; COMMENT: Vein ablation APPENDECTOMY PROCEDURE: HISTORICAL APPENDECTOMY; COMMENT: 1981 OTHER SURGICAL HISTORY 08/18/2023 Right PROCEDURE: [place] INCISION BONE CORTEX FOOT; COMMENT: right, 5th metatarsal OTHER SURGICAL HISTORY 08/18/2023 Right PROCEDURE: FL BIOPSY BONE OPEN SUPERFICIAL; COMMENT: right, 5th proximal phalanx OTHER SURGICAL HISTORY 08/18/2023 Right PROCEDURE: FL SECONDARY CLOSURE SURG WOUND/DEHSN XTNSV/COMP Medical History [...] (HCC); COMMENT: [facility]. History of cataract 10/17/2020 DX:History o f [...] at Not on file Legal Sex Female 3:16 AM EST Gender Identity Not on file Sexual [...] Maintenance Due Date Last Done Comments Diabetes: Annual Foot Exam 1945 Diabetes: Annual Retina Eye Exam 1945 DTaP,Tdap,and Td Vaccines (1 - Tdap) 1954 Pneumococcal Vaccine: 50+ Years (1 of 2 - PCV) 1954 Zoster Vaccines (1 of 2) 1954 [...] patient's age to complete this topic Meningococcal B Vacine Aged Out No lo nger eligible based on patient's age to complete this topic RSV Immunization Patients Under 20 months Aged Out No longer eligible b ased on patient's age to complete this topic Varicella Vaccines Aged Out No longer eligible based on patient's age to complete this topic Advance Directives Documents on File Type Date Recorded Patient Cancer Genetic Counselor Expl anation Health Care Decision (hx) 08/20/2023 AD العراقي DIRECTIVE Health Care Decision (hx) 08/20/2023 AD العراقي DIRECTIVE Care Teams Regional Project Manager Relationship Specialty Start Date End Date Christopher Zamudio MD [address] [place] [address] Drive [address] [place] [address] PCP - General 09/10/16
== END 2024-10-25 11:25 | disposition home or self-care (01) ==
LOC: HO.LAB 11:24
PROVIDERS: PCP Internal Medicine; Visit Provider Internal Medicine Medical Oncology
DX: D64.9 Anemia, unspecified (principal)
CPT/HCPCS: 36415; 85025

== ENCOUNTER 2024-11-08 11:54 | Outpatient (REF) | payer MEDICARE, SELFPAY ==
[2024-11-08 12:29] LABS: MANUAL DIFF FLAG NO
[2024-11-08 12:31] LABS: Basophils Percent Auto 0.5 % (0-2); Eosinophils Absolute Auto 0.1 X10*3/uL (0.0-0.4); Eosinophils Percent Auto 1.7 % (0-4); Hematocrit 33.2 % (37.0-47.0); Hemoglobin 10.4 g/dl (12.0-16.0); Imm Gran Abs Auto 0.02 X10*3/uL (0.00-0.03); Imm Gran Pct Auto 0.3 % (0.0-0.4); Lymphocytes Absolute Auto 1.2 X10*3/uL (1.2-4.9); Mean Corpuscular HGB Conc 31.3 g/dl (31.0-35.0); Mean Corpuscular Hemoglobin 25.7 pg (27.0-33.0); Mean Platelet Volume 11.5 fL (9.4-12.3); Monocytes Absolute Auto 0.5 X10*3/uL (0.1-1.2); Neutrophils Absolute Auto 4.8 x10*3/uL (2.0-8.3); Neutrophils Percent Auto 72.5 % (45-73); Platelet Count 251 X10*3/uL (160-400); Red Blood Count 4.05 X10*6/uL (4.20-5.50); Red Cell Distribution Width 19.1 % (11.0-16.0); White Blood Count 6.6 X10*3/uL (4.8-10.8)
== END 2024-11-08 11:55 | disposition home or self-care (01) ==
LOC: HO.LAB 11:54
PROVIDERS: PCP Internal Medicine; Visit Provider Internal Medicine Medical Oncology
DX: D64.9 Anemia, unspecified (principal)
CPT/HCPCS: 36415; 85025

== ENCOUNTER 2024-11-22 11:15 | Outpatient (REF) | payer MEDICARE, SELFPAY ==
[2024-11-22 11:41] LABS: MANUAL DIFF FLAG NO
[2024-11-22 12:13] LABS: Basophils Percent Auto 0.4 % (0-2); Eosinophils Absolute Auto 0.2 X10*3/uL (0.0-0.4); Hematocrit 33.2 % (37.0-47.0); Hemoglobin 10.2 g/dl (12.0-16.0); Imm Gran Abs Auto 0.03 X10*3/uL (0.00-0.03); Imm Gran Pct Auto 0.4 % (0.0-0.4); Lymphocytes Absolute Auto 1.6 X10*3/uL (1.2-4.9); Lymphocytes Percent Auto 22.7 % (20-40); Mean Corpuscular HGB Conc 30.7 g/dl (31.0-35.0); Mean Corpuscular Hemoglobin 25.7 pg (27.0-33.0); Mean Corpuscular Volume 83.6 fL (80.0-98.0); Mean Platelet Volume 12.3 fL (9.4-12.3); Monocytes Absolute Auto 0.6 X10*3/uL (0.1-1.2); Monocytes Percent Auto 7.9 % (2-11); Neutrophils Absolute Auto 4.6 x10*3/uL (2.0-8.3); Neutrophils Percent Auto 65.6 % (45-73); Platelet Count 293 X10*3/uL (160-400); Red Blood Count 3.97 X10*6/uL (4.20-5.50); Red Cell Distribution Width 19.2 % (11.0-16.0)
--- OUTSIDE RECORDS SUMMARY | 2024-11-22 13:45 | XMS_ITS | Clinical Summary ---
Author Organization [employer] Address [address] [place] [address] [address] [place] [address] Care Team Providers Care Seafood Harvester Name Role Phone Unavailable Primary Care Provider [...]
--- OUTSIDE RECORDS SUMMARY | 2024-11-22 13:45 | XMS_ITS | Clinical Summary ---
Author Organization [facility] Address [address] [place] [phone] Care Team Providers Care Scientific Diver Name Role Phone Christopher Zamudio MD Primary Care Provider Surgical History Surgery Date Site/Laterality Comments CHOLECYSTECTOMY PROCEDURE: HISTORICAL CHOLECYSTECTOMY; COMMENT: 1981 LEG SURGERY 1985 PROCEDURE: HISTORICAL LEG SURGERY; COMMENT: Vein ablation APPENDECTOMY PROCEDURE: HISTORICAL APPENDECTOMY; COMMENT: 1981 OTHER SURGICAL HISTORY 08/18/2023 Right PROCEDURE: [place] INCISION BONE CORTEX FOOT; COMMENT: right, 5th metatarsal OTHER SURGICAL HISTORY 08/18/2023 Right PROCEDURE: NM BIOPSY BONE OPEN SUPERFICIAL; COMMENT: right, 5th proximal phalanx OTHER SURGICAL HISTORY 08/18/2023 Right PROCEDURE: NM SECONDARY CLOSURE SURG WOUND/DEHSN XTNSV/COMP Medical History [...] 10/17/2020 DX:Actinic ker atosis Lower extremity ulceration 10/17/2020 DX:Lo wer extremity ulceration (HCC); COMMENT: [facility]. 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
--- OUTSIDE RECORDS SUMMARY | 2024-11-22 13:45 | XMS_ITS | Clinical Summary ---
Author Organization [facility] Address [address] [place] [phone] Phone Care Team Providers Care Decontamination Worker Name Role Phone Christopher Zamudio MD Primary Care Provider [phone] Allergies Active Allergy Reactions Criticality Noted Date Comments Codeine Other (see comments) 02/28/2021 Metoprolol 09/26/2024 pt says she hallucinates Medications allopurinol (ZYLOPRIM) 100 MG tablet Take 100 mg by mouth daily 09/28/2020 Active fenofibrate (TRIGLIDE) 160 MG tablet Take 160 mg by mouth daily 08/17/2020 Active furosemide (LASIX) 20 MG tablet Take 20 mg by mouth daily 09/23/2020 Active Accu-Chek Radha Plus test strip TEST THREE TIMES DAILY DIRECTED 07/30/2020 Active omeprazole (PriLOSEC) [address] capsule Take 1 capsule by mouth 1 (one) time each day Active triamcinolone (KENALOG) 0.5 % ointment by Other route 2 (two) times a day Active Microlet Lancets misc USE TO TEST BLOOD SUGAR THREE TIMES DAILY 08/02/2020 Active insulin NPH-insulin regular (HumuLIN 70/30 KWIKPEN) (70-30) 100 UNIT/ML injection as directed Active metoprolol tartrate (LOPRESSOR) 50 MG tablet Take 0.5 tablets (25 mg total) by mouth 1 (one) time each day 90 tablet 3 12/27/2022 Active epoetin jayna (EPOGEN,PROCRIT ) 58644 UNIT/ML injectionIndica tions: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 180 tablet 2024 01/03/20 Active Active Problems Problem Noted Date Diagnosed [...] Overview (09/16/2022): [facility] History of malignant basal cell neoplasm of skin 01/27/2019 Overview (09/16/2022): lip Encounters Date Type Department Care Team Description 2024 Office Communication [facility] [address] [phone] Neo Rollins MD 09/28/2024 Telephone [facility] [address] [phone] Concepción Ibrahim 09/26/2024 2:00 PM EST Office Visit [facility] [address] [phone] Neo Rollins MD Chronic kidney disease, stage 4 (severe) (HCC) (Primary Dx); Anemia in chronic kidney disease 09/05/2024 Orders Only [facility] [address] [phone] Neo Rollins MD from Last 3 Months Immunizations Name Administration [...] Visit [facility] [address] [phone] Neo Rollins MD [address] [phone] Health Maintenance Due Date Last [...] MD LAB URINE ORDERABLES Final Re sult [place] See order comments [place] [address] * Creatinine, urine, random (09/05/2024 1:06 PM EST) Creatinine, Urine 54.35 mg/dL See order comments 09/05/2024 1:06 PM EST 09/05/2024 1:06 PM EST Neo Rollins MD LAB URINE ORDERABLES Final Re sult Performing Organization Address [facility] Co de Phone Number [place] See order comments [place] [address] * (ABNORMAL) Urinalysis with microscopic (09/05/2024 1:06 PM EST) Color Urine Yellow See orde r comments Appearance Urine Clear See order comments pH Urine 5.5 5.0 - 9.0 See order comments Glucose Urine Negative Negative mg/dL See order comments Blood, Urine Negative Negative See ord er comments Specific [place] Urine 1.015 1.005 - 1.025 See order [...] ORDERABLES Final Re sult Performing Organization Address [facility] Co de Phone Number [place] See order comments [place] [address] * (ABNORMAL) Urinalysis (09/05/2024 1:06 PM EST) Color Urine Yellow See orde r comments Appearance Urine Clear See order comments pH Urine 5.5 5.0 - 9.0 See order comments Glucose Urine Negative Negative mg/dL See order comments Blood, Urine Negative Negative See ord er comments Specific [place] Urine 1.015 1.005 - 1.025 See order comments Protein Urine 300 (3+)(A) Neg-Trace mg/dL See order comments Ketones, Urine Negative Negative mg/dL See order comments Nitrite, Urine Negative Negative See o rder comments Leukocyte Esterase Urine Trace(A) Negative See order comments 09/05/2024 1:06 PM EST 09/05/2024 1:06 PM EST Neo Rollins MD LAB URINE ORDERABLES Final Re sult Performing Organization Address [facility] Co de [facility] See order comments [place] [address] * (ABNORMAL) Creatinine (09/05/2024 12:54 PM EST) Creatinine Serum 1.71(H) 0.5 - 1.4 mg/dL See order comments eGFR 28 See order comments Comment: Chronic Kidney Disease: ??Estimated GFR < 60 mL/min/1.73m2 Severe Kidney Disease: ??Estimated GFR < 15 mL/min/1.73m2 09/05/2024 12:5 4 PM EST 09/05/2024 12:54 PM EST Neo Rollins MD LAB BLOOD ORDERABLES Final Re sult Performing Organization Address [facility] Co de Phone Number [place] See order comments [place] [address] * (ABNORMAL) PTH, Intact (09/05/2024 12:54 PM EST) Parathyroid Hormone, Intact 81.0(H) 8.7 - 77.1 pg/mL See order comments 09/05/2024 12:5 4 PM EST 09/05/2024 12:54 PM EST Neo Rollins MD LAB [id number]-MT SOLICITED RESULTS Final Result Performing Organization Address [facility]/ZIP Co de Phone Number [place] See order comments [place] [address] * (ABNORMAL) Vitamin D 1,25 dihydroxy (09/05/2024 12:54 PM EST) Pathologist [facility] Calcitriol(1,25 di-OH Vit D) 17(A) 18 - [...] analytical performance characteristics have been determined by [employer] [facility], [place], [place]. It has not been cleared or approved by the FDA. This assay has been validated pursuant to the CLIA regulations and is used for clinical purposes. THIS TEST WAS PERFORMED AT: [facility] [address] ??[phone] MICAELA VEE MD,PHD 09/05/2024 12:5 4 PM EST 09/05/2024 12:54 PM EST us Neo Rollins MD LAB BLOOD ORDERABLES Final Re sult Performing Organization Address [facility] Co de Phone Number [place] See order comments [place] [address] * (ABNORMAL) CBC and Differential (09/05/2024 12:54 [...] order comments [place] [address] * (ABNORMAL) BUN (09/05/2024 12:54 PM EST) BUN 42(H) 9 - 16 mg/dL See order comments 09/05/2024 12:5 4 PM EST 09/05/2024 12:54 PM EST us Neo Rollins MD LAB BLOOD ORDERABLES Final Re sult Performing Organization Address [facility] Phone Number [place] See order comments [place] [address] * (ABNORMAL) Phosphorus (09/05/2024 12:54 PM EST) Phosphorus, Serum 2.6(L) 2.7 - 4.5 mg/dL See order comments Blood (Blood, Venous) 09/05/2024 12:54 PM EST 09/05/2024 12:54 PM EST us Neo Rollins MD LAB BLOOD ORDERABLES Final Re sult Performing Organization Address [facility] Phone Number [place] See order comments [place] [address] * Magnesium (09/05/2024 12:54 PM EST) Magnesium 1.7 1.6 - 2.6 mg/dL See order comments Blood (Blood, Venous) 09/05/2024 12:54 PM EST 09/05/2024 12:54 PM EST us Neo Rollins MD LAB BLOOD ORDERABLES Final Re sult Performing Organization Address [facility] Phone Number [place] See order comments [place] [address] * Calcium (09/05/2024 12:54 PM EST) Calcium 9.5 8.4 - 10.2 mg/dL See order comments Blood (Blood, Venous) 09/05/2024 12:54 PM EST 09/05/2024 12:54 PM EST us Neo Rollins MD LAB BLOOD ORDERABLES Final Re sult Performing Organization Address [facility] Phone Number [place] See order comments [place] [address] * (ABNORMAL) Albumin (09/05/2024 12:54 PM EST) Albumin 3.3(L) 3.5 - 5.0 g/dL See order comments Blood (Blood, Venous) 09/05/2024 12:54 PM EST 09/05/2024 12:54 PM EST Neo Rollins MD LAB BLOOD ORDERABLES Final Re sult [place] See order comments [place] [address] * (ABNORMAL) Electrolyte panel (09/05/2024 12:54 PM [...] Rollins MD LAB BLOOD ORDERABLES Final Re yat [place] See order comments [place] [address] * Hemoglobin A1c (04/18/2019 10:34 AM EDT) [...] ? sample. Estimated Average Glucose 154 MG/DL NIRALITONEY Comment: eAG = Estimated average glucose which is %A1C expressed as average glucose, using the formula of the [id number] Average Glucose study (ADAG), Diabetes Care, Vol.31,#8, Mar. 2007 04/18/2019 10:3 4 AM EDT Christopher Zamudio MD LAB BLOOD ORDERABLES Final Resu lt [place] from Last 3 Months or Most Recently Relevant to [place] [id number] [facility] MEDICARE [place] [id number] MEDICARE [facility] [place]ID [place] Care Teams Decontamination Worker Relationship Specialty Start Date End Date Christopher Zamudio MD [address] [place], [place] PCP - General 09/02/20
== END 2024-11-22 11:16 | disposition home or self-care (01) ==
LOC: HO.LAB 11:15
PROVIDERS: Visit Provider Internal Medicine Medical Oncology
DX: D64.9 Anemia, unspecified (principal)
CPT/HCPCS: 36415; 85025

== ENCOUNTER 2024-12-06 11:22 | Outpatient (REF) | payer MEDICARE, SELFPAY ==
[2024-12-06 11:36] LABS: MANUAL DIFF FLAG NO
[2024-12-06 12:00] LABS: Basophils Percent Auto 0.5 % (0-2); Eosinophils Absolute Auto 0.2 X10*3/uL (0.0-0.4); Eosinophils Percent Auto 2.8 % (0-4); Hematocrit 33.9 % (37.0-47.0); Hemoglobin 10.5 g/dl (12.0-16.0); Imm Gran Abs Auto 0.02 X10*3/uL (0.00-0.03); Imm Gran Pct Auto 0.3 % (0.0-0.4); Lymphocytes Absolute Auto 1.5 X10*3/uL (1.2-4.9); Lymphocytes Percent Auto 23.4 % (20-40); Mean Corpuscular Hemoglobin 25.9 pg (27.0-33.0); Mean Corpuscular Volume 83.7 fL (80.0-98.0); Mean Platelet Volume 12.3 fL (9.4-12.3); Monocytes Absolute Auto 0.4 X10*3/uL (0.1-1.2); Monocytes Percent Auto 5.5 % (2-11); Neutrophils Absolute Auto 4.3 x10*3/uL (2.0-8.3); Neutrophils Percent Auto 67.5 % (45-73); Platelet Count 271 X10*3/uL (160-400); Red Blood Count 4.05 X10*6/uL (4.20-5.50); Red Cell Distribution Width 19.1 % (11.0-16.0); White Blood Count 6.3 X10*3/uL (4.8-10.8)
[2024-12-06 12:53] LABS: Alanine Aminotransferase 12 U/L (0-31); Albumin Level 3.2 g/dL (3.5-5.0); Alkaline Phosphatase 62 U/L (39-117); Anion Gap 14 (12-20); Aspartate Amino Transferase 26 U/L (5-31); Bilirubin Total 0.3 mg/dL (0.0-1.0); Blood Urea Nitrogen 41 mg/dL (9-16); Calcium 9.9 mg/dL (8.4-10.2); Carbon Dioxide 24 mmol/L (22-29); Chloride 110 mmol/L (96-108); Estimated Glomerular Filt Rate 24; Ferritin 35 ng/mL (10-250); Glucose Random 77 mg/dL (60-115); Iron 43 mcg/dL (30-160); Percent Iron Saturation 16 % (15-50); Potassium 4.8 mmol/L (3.3-5.1); Sodium 143 mmol/L (135-145); Total Iron Binding Capacity 276 mcg/dL (228-428); Total Protein 6.2 g/dL (6.5-8.0); Unsaturated Iron Binding 233 ug/dL
--- OUTSIDE RECORDS SUMMARY | 2024-12-06 13:49 | XMS_ITS | Clinical Summary ---
Author Organization [employer] Address [address] [place] [address] [address] [place] [address] Care Team Providers Care Nib Inspector Name Role Phone Unavailable Primary Care Provider [...]
--- OUTSIDE RECORDS SUMMARY | 2024-12-06 13:50 | XMS_ITS | Data Portability ---
Author Organization [facility], Main Office Address [address] [place] [address] Care Team Providers Care Client Services Account Manager Name Role Phone TISHA MANZO Primary Care Provider [phone] YARA CISNEROS 2ND FLOOR OTHER [phone] Assessment Encounter Date Assessment Date Assessment LastModified [...] Address Organization Details Recorded Time Bacteremi a 7848884 Active 2022 MSSA foot infection Not Available [facility] 4 02:47:47 Type 2 diabetes mellitus 60700105 Active 2022 Not Available [facility] 4 02:47:47 Hypothyro idism 44749430 Active 2022 Not Available [facility] 4 02:47:47 Chronic kidney disease 295444392 Active 2022 Not Available [facility] 4 02:47:47 Gout 12656728 Active 2022 Not Available [facility] 4 02:47:47 Gastroeso phageal reflux disease without esophagit is 850973548 Active 2022 Not Available [facility] 4 02:47:47 Hyperlipi demia 38466253 Active 2022 Not Available [facility] 4 02:47:47 Essential hypertens ion 33434265 Active 2022 Not Available [facility] 4 02:47:47 Hypomagne semia 546601960 Active 2023 Not Available [facility] 4 02:47:47 Vitamin D deficienc y 53939358 Active 2023 Not Available [facility] 4 02:47:47 Chronic diastolic heart failure 672964169 Active 2023 Janee Davis MD [address] [facility], [facility] [address], [place], [address] , [facility] 4 10:48:17 Anemia 054353379 Active 2023 Janee Davis MD [address] [facility], [address], [place], [address] , [facility] 4 11:10:38 Bimalleol ar fracture of ankle 199722051 Active 2023 TATI CURRIE [address] [facility], [address], [place], [address] , [facility] 4 14:06:55 Stasis dermatiti s and 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 Please review this document and add these problems to the patient's chart manually as needed. Problem Notes None recorded. Medical Equipment None Reported. Allergies Allergen ID Allergen Name Allergen Category Reaction Reaction Severity Criticality Documentation Date Start Date Code Code System Note Provider Name and Address Organization Details Recorded Time 60008 codeine medicatio n Not available Not available Not available 08/20/2023 2670 RxNorm Not Available Not Available Not Available Vitals Date Recorded Body height Heart rate Respiratory rate Body temperature Systolic blood pressure Diastolic blood pressure Provider Name and Address Organization Details Last Updated DateTime 4 170.18 cm 80 /min 16 /min 98 [degF] 129 mm[Hg] 78 mm[Hg] TATI CURRIE [address] , [address], [place], [address], [facility] 4 10:52:49 Date Recorded Body height Body temperature Respiratory rate Heart rate Systolic blood pressure Diastolic blood pressure Provider Name and Address Organization Details Last Updated DateTime 4 170.18 cm 97.3 [degF] 18 /min 68 /min 122 mm[Hg] 68 mm[Hg] TATI CURRIE [address] , [address], [place], [address], [facility] 4 14:33:03 Date Recorded Body height Heart rate Respiratory rate Body temperature Systolic blood pressure Diastolic blood pressure Provider Name and Address Organization Details Last Updated DateTime 4 170.18 cm 74 /min 18 /min 98 [degF] 132 mm[Hg] 74 mm[Hg] TATI CURRIE [address] , [address], [place], [address], [facility] 4 12:19:44 Date Recorded Body height Body mass index (BMI) Body weight Heart rate Respiratory rate Body temperature Oxygen saturation Oxygen saturation in Arterial blood by Pulse oximetry Systolic blood pressure Diastolic blood pressure Provider Name and Address Organization Details Last Updated DateTime 4 170.18 cm 31.6 kg/m2 24416.6 6 g 79 /min 18 /min 97.4 [degF] 100 % 100 % 141 mm[Hg] 75 mm[Hg] Janee Davis MD [address] , [address], [place], [address], [facility] 4 21:07:19 Date Recorded Body height Heart rate Respiratory rate Body temperature Oxygen saturation Oxygen saturation in Arterial blood by Pulse oximetry Systolic blood pressure Diastolic blood pressure Provider Name and Address Organization Details Last Updated DateTime 4 170.18 cm 79 /min 18 /min 98 [degF] 100 % 100 % 141 mm[Hg] 75 mm[Hg] TATI CURRIE [address] , [address], [place], [address], [facility] 4 14:26:02 Social History Question Answer Notes LastModified by Organizat ion Details LastModified Time Tobacco Smoking Status Never Smoker ALVARADO DEL CID NP [address] [facility], [address], [place], [address], [facility] 08/20/2023 11:16:58 Do You Have An [...] Do You Have A Medical Power Of Director Sterile Processing? Yes Information not available 08/24/2023 What Was [...] adjuvanted, quadrivalent, PF 3 completed Not Available [facility] 09/30/2023 02:47:47 Td(adult) unspecified formulation 1 completed [facility] 12/28/2023 16:20:20 SARS-COV-2 (COVID-19) vaccine, UNSPECIFIED 1 completed [facility] 12/28/2023 16:20:43 SARS-COV-2 (COVID-19) vaccine, UNSPECIFIED 1 completed [facility] 12/28/2023 16:20:50 pneumococcal polysaccharide PPV23 1 completed [facility] 12/28/2023 16:21:57 SARS-COV-2 (COVID-19) vaccine, UNSPECIFIED 1 completed [facility] 12/28/2023 16:22:45 Past Encounters Encounter ID Performer Location Encounter Start Date Encounter Closed Date Diagnosis/Indication Diagnosis SNOMED-CT Code Diagnosis ICD10 Code Diagnosis Note [id number] SCOTT NOBLES [address] [place] [address] [place] [address] 08/20/2023 09:52:59 08/31/2023 13:27:41 Bacteremia 1839543 R78.81 flush picc qshiftcefa zolin 1 gm bid to 2/2followu p with vascular as planned Type 2 tiara betes mellitus 66725702 E11.9 humulin/re g 70/30 50 units bidmonitor glucose Chronic ki dney disease 763800964 N18.9 monitor labsavoid nephrotoxi c meds Gastroesop hageal reflux disease without esophagitis 628620807 K21.9 mag ox 400 mg daily to 08/30omepraz ole 20 mg daily Gout 82324739 M10.9 allopurino l 100 mg dailyD3 1250 g04umki Hyperlipidemia 08529971 E78.5 fenofibrat e 160 mg daily Hypothyroidism 06008914 E03.9 hx of Essential hypertension 51773702 I10 lasix 20 mg dailyhydra lazine 25 mg bidtoprol 25 mg dailymonit or bplisinopr il stopped in hospital [id number] ALVARADO DEL CID NP [address] [place] [address] 08/24/2023 13:44:02 08/25/2023 03:52:21 Type 2 diabetes mellitus 35569774 E11.9 humulin/re g 70/30 50 units bidmonitor glucose Bacteremia 4478732 R78.8 1 flush picc qshiftcefa zolin 1 gm bid to 2/2followu p with vascular as planned [id number] Janee Davis MD [address] [place] [address] 08/24/2023 15:18:19 08/31/2023 14:10:55 Type 2 diabetes mellitus 60116041 E11.9 With some hypoglycem ia.Humulin 70/30 was lowered from 50 units BID to 25U BID and SSI continued. Monitor fingerstic ks, will change from TID to qid, with low dose SS at hs.HgA1C was 6.7 inpt. Bacteremia 3987983 R78.8 1 As above Osteomyeli tis of right foot 5214734215 472966 M86.271 S/P I&D and debridemen t. Vasc. surgeon (Dr. Friedman) felt that all diseased bone was removed.Co ntinue cefazolin 1 gm IV BID until 09/24 to complete 6 wk course.Con tinue wound care as ordered.F/ U with Dr. Friedman as planned. Chronic ki dney disease 594185636 N18.32 Back to baseline.C ontinue to avoid nephrotoxi c meds as able.Monit or labs.Renal consult prn. Gastroesop hageal reflux disease without esophagitis 212732669 K21.9 No current sxs.Contin ue omeprazole 20 mg qdMonitor sxs. Gout 96249546 M10.09 No current sxs.Contin ue allopurino l 100 mg qdMonitor for flare. Hyperlipidemia 95969276 E78.49 Continue fenofibrat e 160 mg qdMonitor as outpt. Hypothyroidism 57792906 E03.8 In hx.TSH WNL in 11/2022Moni tor as outpt Essential hypertension 51226631 I10 BP borderline at times, but acceptable for age.BP goal for this elderly woman is permissive HTN, with SBP<150 and DBP<90Cont inue lasix 20 mg qd, hydralazin e 25 mg BID and metoprolol 25 mg qd.Monitor BP and labs.No need to restart lisinopril at this time Hypomagnesemia 783729790 E83.42 Continue Mg+ 400 mg qd until 08/30, then recheck level Vitamin D deficiency 347 87502 E55.9 Continue ergocalcif denisse 50,000 IU every 14 days.Monit or levels [id number] TATI CURRIE [address] [address] 08/31/2023 11:38:57 09/08/2023 12:37:11 Bacteremia 9772068 R78.81 continuece fazolin 1 gm bid to 2ollow up with vascular Type 2 tiara betes mellitus 31515827 E11.9 200-280's mainlyhumu mahesh/reg 70/30 50 units bidmonitor glucose Chronic ki dney disease 139250075 N18.9 monitor labsavoid nephrotoxi c meds Gastroesop hageal reflux disease without esophagitis 373814586 K21.9 mag ox 400 mg daily to 08/30omepraz ole 20 mg daily Gout 68555408 M10.9 allopurino l 100 mg dailyD3 1250 f24uphh Hyperlipidemia 47928371 E78.5 fenofibrat e 160 mg daily Hypothyroidism 76407326 E03.9 hx of Essential hypertension 87105137 I10 lasix 20 mg dailyhydra lazine 25 mg bidtoprol 25 mg dailymonit or bplisinopr il stopped in hospital [id number] TATI CURRIE [address] [address] 09/02/2023 09:40:27 09/08/2023 13:38:51 Bacteremia 3573287 R78.81 continueMS SA right footcefazo mahesh 1 gm bid to 22follow up with vascular Type 2 tiara betes mellitus 74017342 E11.9 200-280's mainlychan ged back to humulin/re g 70/30 50 units bidmonitor glucose Osteomyeli tis of right foot 6621048906 621058 M86.271 S/P I&D and debridemen t. Vasc. surgeon (Dr. Friedman) felt that all diseased bone was removed.Co ntinue cefazolin 1 gm IV BID until 2/2 to complete 6 wk course.Con tinue wound care as ordered.F/ U with Dr. Friedman as planned. Edema of l ower extremity 413276059 R60.0 chronic BLEright greater than left [id number] TATI CURRIE [address] [address] 09/07/2023 13:02:41 09/13/2023 15:17:43 Bacteremia 2069329 R78.81 continueMS SA right footcefazo mahesh 1 gm bid to 2/2follow up with vascular Type 2 tiara betes mellitus 65015786 E11.9 lispro SSChumulin /reg 70/30 50 units bidmonitor glucose Osteomyeli tis of right foot 4255573695 998776 M86.271 S/P I&D and debridemen t. Vasc. surgeon (Dr. Friedman) felt that all diseased bone was removed.Co ntinue cefazolin 1 gm IV BID until 2 to complete 6 wk course.Con tinue wound care as ordered.F/ U with Dr. Friedman as planned. Edema of l ower extremity 567132639 R60.0 chronic BLEright greater than left [id number] TATI CURRIE [address] [address] 09/10/2023 06:52:27 09/15/2023 13:31:46 Bacteremia 2485051 R78.81 continueMS SA right footcefazo mahesh 1 gm bid to 2/2follow up with vascular Type 2 tiara betes mellitus 51371039 E11.9 I spoke with patient today. previously [...] bidmonitor glucose Osteomyeli tis of right foot 7444142926 197993 M86.271 S/P I&D and debridemen t. Vasc. surgeon (Dr. Friedman) felt that all diseased bone was removed.Co ntinue cefazolin 1 gm IV BID until 2/2 to complete 6 wk course.Con tinue wound care as ordered.F/ U with Dr. Friedman as planned. Edema of l ower extremity 454216625 R60.0 chronic BLEright greater than left [id number] TATI CURRIE [address] [address] 09/14/2023 07:53:08 09/17/2023 08:57:48 Bacteremia 7718858 R78.81 continueMS SA right footcefazo mahesh 1 gm bid to 2/2follow up with vascular Type 2 tiara betes mellitus 27330926 E11.9 I spoke with patient today. previously [...] bidmonitor glucose Osteomyeli tis of right foot 7516398983 935846 M86.271 S/P I&D and debridemen t. Vasc. surgeon (Dr. Friedman) felt that all diseased bone was removed.Co ntinue cefazolin 1 gm IV BID until 2/2 to complete 6 wk course.Con tinue wound care as ordered.F/ U with Dr. Friedman as planned. Edema of l ower extremity 387304297 R60.0 chronic BLEright greater than left [id number] TATI CURRIE [address] [address] 09/17/2023 08:23:28 09/22/2023 11:50:26 Bacteremia 6140940 R78.81 continueMS SA right footcefazo mahesh 1 gm bid to 2/2follow up with vascular Type 2 tiara betes mellitus 13656687 E11.9 lispro SSChumulin /reg 70/30 30 units bidmonitor glucose Osteomyeli tis of right foot 9916019196 358666 M86.271 S/P I&D and debridemen t. Vasc. surgeon (Dr. Friedman) felt that all diseased bone was removed.Co ntinue cefazolin 1 gm IV BID until 09/24 to complete 6 wk course.Con tinue wound care as ordered.F/ U with Dr. Friedman as planned. Edema of l ower extremity 439136298 R60.0 chronic BLEright greater than left [id number] TATI CURRIE [address] [address] 09/21/2023 07:59:18 09/29/2023 08:59:51 Bacteremia 7365977 R78.81 continueCT SA right footcefazo mahesh 1 gm bid to 2/ollow up with vascular Type 2 tiara betes mellitus 15773982 E11.9 lispro SSChumulin /reg 70/30 30 units bidmonitor glucose Osteomyeli tis of right foot 1165078269 214337 M86.271 S/P I&D and debridemen t. Vasc. surgeon (Dr. Friedman) felt that all diseased bone was removed.Co ntinue cefazolin 1 gm IV BID until 09/24 to complete 6 wk course.Con tinue wound care as ordered.F/ U with Dr. Friedman as planned. Edema of l ower extremity 605957094 R60.0 chronic BLEright greater than left [id number] TATI CURRIE [address] [place] [address] 09/24/2023 12:21:41 09/29/2023 13:31:08 Bacteremia 3369197 R78.81 resolved Type 2 tiara betes mellitus 42138308 E11.9 humulin/re g 70/30 50 units bid Chronic ki dney disease 043152698 N18.9 monitor labsavoid nephrotoxi c meds Gastroesop hageal reflux disease without esophagitis 616508487 K21.9 mag ox 400 mg daily to 08/30omepraz ole 20 mg daily Gout 54619237 M10.9 allopurino l 100 mg dailyD3 1250 t28irwr Hyperlipidemia 68188314 E78.5 fenofibrat e 160 mg daily Hypothyroidism 76978041 E03.9 TSH WNL in 11/2022Moni tor as outptcurre ntly not on medication . Essential hypertension 40343087 I10 lasix 20 mg dailyhydra lazine 25 mg bidtoprol 25 mg daily Osteomyeli tis of right foot 9641722897 904077 M86.271 S/P I&D and debridemen t. Vasc. surgeon (Dr. Friedman) felt that all diseased bone was removed.co mpleted IV cefazolin 1 gm IV BID 09/24/23Cont inue wound care as ordered.F/ U with Dr. Friedman as planned. Hypomagnesemia 502838240 E83.42 monitor outpt labs Vitamin D deficiency 347 49095 E55.9 Continue ergocalcif denisse 50,000 IU every 14 days.Monit or levels [id number] Janee Davis MD [address] [address] 12/28/2023 15:33:48 01/13/2024 12:52:53 Chronic diastolic heart failure 257868303 I50.32 Appears euvolemic. Continue furosemide 40 mg qd and hydralazin e 25 mg BID.Monito r resp. status, fluid status, wts and labs. Paroxysmal atrial fibrillation 133568527 I48.0 Rate in good control on diltiazem 120 mg qd.Continu e eliquis 5 mg BID for AC.Monitor HR and bleeding risk. Type 2 tiara betes mellitus 84315834 E11.9 This AM FBS was 88. Last time she was here fastings tended to be ok, but with high sugars later in the day.HgA1C was 7.1 this AMContinue Humulin 70/30 20U BID and SSI.Monito r fingerstic ks TID Chronic ki dney disease 789272099 N18.32 Back to baseline.C ontinue to avoid nephrotoxi c meds as able.Monit or labs.Renal consult prn. Essential hypertension 29879624 I10 BP borderline at times, but acceptable for age.BP goal for this elderly woman is permissive HTN, with SBP<150 and DBP<90Cont inue meds as above.Rebeca tor BP and labs. Gastroesop hageal reflux disease without esophagitis 691429153 K21.9 No current sxs.Contin ue omeprazole 20 mg qdMonitor sxs. Gout 82214709 M10.09 No current sxs.Contin ue allopurino l 100 mg qdMonitor for flare. Hyperlipidemia 68942753 E78.49 Continue fenofibrat e 160 mg qdMonitor as outpt. Hypothyroidism 56666277 E03.8 In hx.TSH WNL inpt.Monit or as outpt Hypomagnesemia 153995602 E83.42 Continue Mg+ 400 mg BID.Monito r levels Vitamin D deficiency 347 62218 E56.8 Vit D supplement is ordered as cholecalci ferol 5000 IU every 14 days.Is supposed to be ergocalcif denisse 50,000 IU qd, will change.Mon itor levels Anemia 694599860 D64.89 Multifacto rial.Follo ws with Dr. White and gets procrit every few wks (has been irregular due to hospitaliz ations).Mo nitor labs Closed bim alleolar fracture of right ankle 8237797732 8491966 S82.841D Four wks from original injury.Con tinue PT/OT for strengthen ing, balance, gait training, safety and function.C ontinue APAP 1000 mg q 4 hrs prn, NTE 3000 mg/dContin ue fall precaution s.Monitor for safety.F/U with ortho as planned. [id number] TATI CURRIE [address] [place] [address] rd [facility] [place] [address] 01/03/2024 13:24:31 01/05/2024 10:19:57 Chronic diastolic heart failure 702184959 I50.32 continue lasix 40 mg dailyconti nue potassium 20 meq daily Paroxysmal atrial fibrillation 726797058 I48.0 Cardizem 120 mg dailyconti nue eliquis 2.5 mg BID Type 2 tiara betes mellitus 89577060 E11.9 With some hypoglycem ia.continu e Humulin 70/30 20 units BID and SSI continued. continue fingerstic ks QID Essential hypertension 89738929 I10 BP goal for this elderly woman is permissive HTN, with SBP<150 and DBP<90Cont inue lasix 40 mg qd, hydralazin e 25 mg BID lasix 40 mg dailyMonit or BP and labs. Open wound of left lower leg 7237474284 1166585 S81.802A patient son reports that she gets wound care at [facility] and she suppose to have calcium alginate and zinc applied to and around left lower extremity wound. He wants this to continue until wound MD can eval.wound MD alarcon and treatwill ordered to cleanse wound with NS apply calcium alginate and zinc ben wound. [id number] TATI CURRIE [address] [address] 01/07/2024 14:10:11 01/10/2024 13:39:22 Open wound of left lower leg 2404682884 6413290 S81.802A patient son reports that she gets wound care at [facility] and she suppose to have calcium alginate and zinc applied to and around left lower extremity wound. He wants this to continue until wound MD can eval.wound MD alarcon and treatwill ordered to cleanse wound with NS apply calcium alginate and zinc ben wound. Chronic di astolic heart failure 696863371 I50.32 continue lasix 40 mg dailyconti nue potassium 20 meq daily Paroxysmal atrial fibrillation 002035774 I48.0 Cardizem 120 mg dailyconti nue eliquis 2.5 mg BID Type 2 tiara betes mellitus 76806341 E11.9 With some hypoglycem ia.continu e Humulin 70/30 20 units BID and SSI continued. continue fingerstic ks QID Essential hypertension 90431509 I10 BP goal for this elderly woman is permissive HTN, with SBP<150 and DBP<90Cont inue lasix 40 mg qd, hydralazin e 25 mg BID lasix 40 mg dailyMonit or BP and labs. [id number] TATI CURRIE [address] [address] 01/11/2024 10:33:27 01/13/2024 16:16:44 Open wound of left lower leg 4524479285 9990136 S81.802A patient son reports that she gets wound care at [facility] and she suppose to have calcium alginate and zinc applied to and around left lower extremity wound. He wants this to continue until wound can dorian.wound MD alarcon and treatantolin ordered to cleanse wound with NS apply calcium alginate and zinc ben wound. Chronic di astolic heart failure 017215866 I50.32 continue lasix 40 mg dailyconti nue potassium 20 meq daily Paroxysmal atrial fibrillation 692898455 I48.0 Cardizem 120 mg dailyconti nue eliquis 2.5 mg BID Type 2 tiara betes mellitus 72533471 E11.9 With some hypoglycem ia.continu e Humulin 70/30 20 units BID and SSI continued. continue fingerstic ks QID Essential hypertension 11220962 I10 BP goal for this elderly woman is permissive HTN, with SBP<150 and DBP<90Cont inue lasix 40 mg qd, hydralazin e 25 mg BID lasix 40 mg dailyMonit or BP and labs. Anemia 820159388 D64.89 H/H trending down this weekstarte d procrit 10/16 and scheduled for bi weeklyunsu re when she last receivedwi ll follow up with patient son. [id number] TATI CURRIE [address] [place] [address] 01/13/2024 10:07:39 01/25/2024 10:52:36 Open wound of left lower leg 5555115391 0817984 S81.802A patient son reports that she gets wound care at [facility] and she suppose to have calcium alginate and zinc applied to and around left lower extremity wound. He wants this to continue until wound can evsipke.wound MD alarcon and quinton ordered to cleanse wound with NS apply calcium alginate and zinc ben wound. Chronic di astolic heart failure 068063349 I50.32 continue lasix 40 mg dailyconti nue potassium 20 meq daily Paroxysmal atrial fibrillation 575236298 I48.0 Cardizem 120 mg dailyconti nue eliquis 2.5 mg BID Type 2 tiara betes mellitus 66747598 E11.9 With some hypoglycem ia.continu e Humulin 70/30 20 units BID and SSI continued. continue fingerstic ks QID Essential hypertension 98775287 I10 BP goal for this elderly woman is permissive HTN, with SBP<150 and DBP<90Cont inue lasix 40 mg qd, hydralazin e 25 mg BID lasix 40 mg dailyMonit or BP and labs. Anemia 689974977 D64.89 HX of normochrom ic normocytic anemiaH/H trending down this week - tends to fluctuates tarted procrit 78092 10/16 and scheduled for bi weeklyRece ived doses on 10/27, 11/10, 11/24, 12/19 and 01/11/24 Bimalleola r fracture of ankle 091800307 S82.841A chronic with [facility] arthropath y with deformity ankle and midfoothx of infection with osteomyeli tis August 2023follow ed by [facility]- last seen on 01/07/24- recommend 2 tx option 1.conserva tive treatment wit off loading as much as possible, wear heel protector boot.2. Surgical reconstruc tion [id number] SHAE MOSELEY, TATI CISNEROS [address] [place] [address] 01/20/2024 09:44:29 01/25/2024 11:59:00 Open wound of left lower leg 0027288959 4600980 S81.802A continue calcium alginate and zinc left lower extremity woundwound MD alarcon and treatwill ordered to cleanse wound with NS apply calcium alginate and zinc ben wound. Chronic di astolic heart failure 781184439 I50.32 stablecont inue lasix 40 mg dailyconti nue potassium 20 meq daily Paroxysmal atrial fibrillation 846884921 I48.0 HR 69Cardizem 120 mg dailyconti nue eliquis 2.5 mg BID Type 2 tiara betes mellitus 60731265 E11.9 With some hypoglycem ia.continu e Humulin 70/30 20 units BID and SSI continued. 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 Surgical reconstruc tion [id number] TATI CURRIE [address] [address] 01/25/2024 10:02:09 01/31/2024 15:51:53 Open wound of left lower leg 1270906689 5649974 S81.802A continue calcium alginate and zinc left lower extremity woundwound MD alarcon and treatwill ordered to cleanse wound with NS apply calcium alginate and zinc ben wound. Chronic di astolic heart failure 729506133 I50.32 continue lasix 40 mg dailyconti nue potassium 20 meq daily Paroxysmal atrial fibrillation 385127900 I48.0 Cardizem 120 mg dailyconti nue eliquis 2.5 mg BID Type 2 tiara betes mellitus 72003738 E11.9 no recent hypoglycem ic events.con tinue Humulin 70/30 20 units BID and SSI continued. 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 Surgical reconstruc tion [id number] TATI CURRIE [address] [address] 01/28/2024 15:29:14 02/01/2024 08:26:24 Open wound of left lower leg [id number] S81.802A [facility] with NS apply calcium alginate and zinc ben wound.elev ate left foot/heel when sitting to keep DTI well perfused Chronic di astolic heart failure 659302878 I50.32 continue lasix 40 mg dailyconti nue potassium 20 meq daily Paroxysmal atrial fibrillation 898465444 I48.0 Cardizem 120 mg dailyconti nue eliquis 2.5 mg BID Type 2 tiara betes mellitus 31690777 E11.9 no recent hypoglycem ic events.con tinue Humulin 70/30 20 units BID and SSI continued. continue fingerstic ks QID Anemia 294971722 D64.89 recent labs stable,HX of normochrom ic normocytic anemiacont inue procrit 79149 10/16 and scheduled for bi weekly Bimalleola r fracture of ankle 184460257 S82.841A she [facility] was seen on 01/23 and will f/u in 2 weeksconti nue with current dressing change. can apply lac hytrin to intact skin right ankle.synchronizer wil with charcot arthropath y with deformity ankle and midfoothx of infection with osteomyeli tis August 2023follow ed by [facility]- Last seen on 01/07/24- recommend 2 tx option1.co nservative treatment wit off loading as much as possible, wear heel protector boot.2. Surgical reconstruc tion [id number] TATI CURRIE [address] [place] [place] [address] 02/01/2024 10:24:39 02/04/2024 08:49:56 Open wound of left lower leg [id number] S81.802A continue to cleanse wound with NS apply calcium alginate and zinc ben wound.elev ate left foot/heel when sitting to keep DTI well perfused Chronic di astolic heart failure 937426784 I50.32 continue lasix 40 mg dailyconti nue potassium 20 meq daily Paroxysmal atrial fibrillation 129059814 I48.0 Cardizem 120 mg dailyconti nue eliquis 2.5 mg BID Type 2 tiara betes mellitus 68078896 E11.9 no recent hypoglycem ic events.con tinue Humulin 70/30 20 units BID and SSI continued. continue fingerstic ks QID Anemia 942456668 D64.89 recent labs stable,HX of normochrom ic normocytic anemiacont inue procrit 64301 10/16 and scheduled for bi weekly Bimalleola r fracture of ankle 026600808 S82.841A [facility] was seen on 01/23 and will f/u in 2 weeksconti nue with current dressing change. can apply lac hytrin to intact skin right ankle.synchronizer wil with charcot arthropath y with deformity ankle and midfoothx of infection with osteomyeli tis August 2023follow ed by [facility]- Last seen on 01/07/24- recommend 2 tx option1.co nservative treatment wit off loading as much as possible, wear heel protector boot.2. Surgical reconstruc tion Chronic ki dney disease 423828918 N18.32 monitor labsavoid nephrotoxi c meds Essential hypertension 76944103 I10 blood pressure has been stable 120-130sBP goal for this elderly woman is permissive HTN, with SBP<150 and DBP<90Cont inue lasix 40 mg qd, hydralazin e 25 mg BID lasix 40 mg dailyMonit or BP and labs. Gout 47823061 M10.09 allopurino l 100 mg dailynot reported recent flare up. [id number] TATI CURRIE AMELIA [address] [place] [address] 02/04/2024 09:44:41 02/07/2024 14:37:26 Open wound of left lower leg [id number] S81.802A continue to cleanse wound with NS apply calcium alginate and zinc ben wound.elev ate left foot/heel when sitting to keep DTI well perfused Chronic di astolic heart failure 075803533 I50.32 euvolemicc ontinue lasix 40 mg dailyconti nue potassium 20 meq daily Paroxysmal atrial fibrillation 563292146 I48.0 Cardizem 120 mg dailyconti nue eliquis 2.5 mg BID Type 2 tiara betes mellitus 10217002 E11.9 BGLs mainly under 200's, a few noted in the 400s. patient and son are very particular about insulin dosing, so will not adjust.con tinue Humulin 70/30 20 units BID and SSI continued. continue fingerstic ks QID Anemia 576207830 D64.89 continue procrit 88943 2 and scheduled for bi weekly Bimalleola r fracture of ankle 286318132 S82.841A [facility] was seen on 01/23 and [...] protector boot.2. Surgical reconstruc tion Essential hypertension 91960747 I10 BP goal for this elderly woman is permissive HTN, with SBP<150 and DBP<90Cont inue lasix 40 mg qd, hydralazin e 25 mg BID lasix 40 mg dailyMonit or BP and labs. [id number] TATI CURRIE [address] [place] [address] 02/07/2024 11:53:48 02/09/2024 16:49:24 Open wound of left lower leg [id number] S81.802A continue to cleanse wound with NS apply calcium alginate and zinc ben wound.elev ate left foot/heel when sitting to keep DTI well perfused Chronic di astolic heart failure 524029573 I50.32 continue lasix 40 mg dailyconti nue potassium 20 meq daily Paroxysmal atrial fibrillation 902451860 I48.0 Cardizem 120 mg dailyconti nue eliquis 2.5 mg BID Type 2 tiara betes mellitus 86762814 E11.9 continue Humulin 70/30 20 units BID and SSI continued. continue fingerstic ks QID Anemia 798982154 D64.89 continue procrit 71107 2 and scheduled for bi weekly Essential hypertension 84483313 I10 Continue lasix 40 mg qd, hydralazin e 25 mg BID lasix 40 mg dailyMonit or BP and labs. [id number] TATI CURRIE [address] [address] 02/10/2024 09:22:17 02/16/2024 10:42:27 Open wound of left lower leg [id number] S81.802A continue to cleanse wound with NS apply calcium alginate and zinc ben wound. PCC updatedele vate left foot/heel when sitting to keep DTI well perfused Chronic di astolic heart failure 283816851 I50.32 continue lasix 40 mg dailyconti nue potassium 20 meq daily Paroxysmal atrial fibrillation 684031405 I48.0 Cardizem 120 mg dailyconti nue eliquis 2.5 mg BID Type 2 tiara betes mellitus 43146847 E11.9 continue Humulin 70/30 20 units BID and SSI continued. continue fingerstic ks QIDno reported hypo/hyper glycemic events. Essential hypertension 23409447 I10 Continue lasix 40 mg qd, hydralazin e 25 mg BID lasix 40 mg dailyMonit or BP and labs. [id number] Janee Davis MD [address] [address] 02/14/2024 21:04:27 03/14/2024 07:28:32 Chronic diastolic heart failure 487617215 I50.32 Appears euvolemic. Continue lasix 40 mg qd and KCl 20 meq qd to prevent hypokalemi a.Monitor resp. status, fluid status, wts and labs. Paroxysmal atrial fibrillation 314248637 I48.0 Rate in good control on meds as above.Cont inue eliquis 2.5 mg BID for AC.Monitor HR and bleeding risk. Type 2 tiara betes mellitus 52723099 E11.9 In adequate control.Co ntinue Humulin 70/30 20U BID and SSIContinu e fingerstic ks QID Essential hypertension 48709696 I10 In good control.Co ntinue lasix 40 mg qd, hydralazin e 25 mg BID, diltiazem 120 mg qd, and lasix 40 mg qdMonitor BP and labs. 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 Essential hypertension 58254826 I10 Continue lasix 40 mg qd, hydralazin e 25 mg BID lasix 40 mg dailyMonit or BP and labs. Chronic di astolic heart failure 404455235 I50.32 continue lasix 40 mg dailyconti nue potassium 20 meq daily Paroxysmal atrial fibrillation 514975380 I48.0 Cardizem 120 mg dailyconti nue eliquis 2.5 mg BID Type 2 tiara betes mellitus 34522471 E11.9 continue Humulin 70/30 20 units BID and SSI continued. continue fingerstic ks QIDno reported hypo/hyper glycemic events. Chronic ki dney disease 251437398 N18.32 Back to baseline.C ontinue to avoid nephrotoxi c meds as able.Monit or labs.Renal consult prn. Closed bim alleolar fracture of right ankle 0795590547 9973796 S82.841D Continue APAP 1000 mg q 4 hrs prn, NTE 3000 mg/dContin ue fall precaution s.Monitor for safety.F/U with ortho Gastroesop hageal reflux disease without esophagitis 497390404 K21.9 Continue omeprazole 20 mg qd Gout 48833468 M10.09 Continue allopurino l 100 mg qdMonitor for flare. Hyperlipidemia 25216650 E78.49 Continue fenofibrat e 160 mg qdMonitor as outpt. Hypothyroidism 96847833 E03.8 not on medsTSH WNL inpt.Monit or as outpt Hypomagnesemia 924871597 E83.42 Continue Mg+ 400 mg BID.Monito r levels Vitamin D deficiency 347 53688 E56.8 ergocalcif denisse 50,000 IU qdMonitor levels Anemia 107274237 D64.89 Multifacto rial.justo nue procrit 83950 bi weekly Health Concerns Section Related Observation LastModified by Organization Detai ls LastModified Time None Recorded Concern Status LastModified by Organization Details LastModified Time None Recorded Advance Directives Directive Y: Payers Encounter Date Sequence Insurance Name Policy Number Policy Bravo Covered Member ID Bravo Member ID Guarantor Name 02/04/2024 1 [place] [employer] Susan Douglass Piecuch [id number] 2 Susan Piecuch 02/04/2024 2 [place] [id number] Susan Piecuch [id number] Susan Piecuch 02/07/2024 1 [place] [place] Susan M Piecuch [id number] 2 Susan Piecuch 02/07/2024 2 [place] [id number] Susan Piecuch [id number] Susan Piecuch 02/10/2024 1 [place] [employer] Susan M Piecuch [id number] 2 Susan Piecuch 02/10/2024 2 [place] [id number] Susan Piecuch [id number] Susan Piecuch 02/14/2024 1 [place] [employer] Susan M Piecuch [id number] 2 Susan Piecuch 02/14/2024 2 [place] [id number] Susan Piecuch [id number] Susan Piecuch 02/18/2024 1 [place] [employer] Susan M Piecuch [id number] 2 Susan Piecuch 02/18/2024 2 [place] [id number] Susan Piecuch [id number] Susan Piecuch Notes Date Note Type [...] broke her right ankle, most recently at [facility] for a CHF exacerbation.She initially presented to the [facility] on 11/26 after an unknown injury. Found to have an Acute displaced bimalleolar fracture with ankle mortise disruption. Complicated by chronic pain from right foot Charcot arthropathy. She was splinted and instructed in strict NWB status and d/c to [facility]. Of note she had just been dxed with new onset Afib on 11/24 and started on diltiazem and apixaban.Returned to [facility] on 12/13, several days after d/c from [facility], because of difficulty ambulating at home and unable to help her due to his own issues. D/C on 12/15 to [facility].Was sent to the [facility] ED on 12/17 because of SOB and [...] no acute nursing concerns. TATI CURRIE [address] [facility], [address], [place], [address], [facility] 02/04/2024 11:01:05 02/07/2024 text/html This is an 88 yo woman seen today for acute rounding visit. 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 Patient has been in and out of rehabs and hosp since 11/26 when she broke her right ankle, most recently at [facility] for a CHF exacerbation.She initially presented to the [facility] on 11/26 after an unknown injury. Found to have an Acute displaced bimalleolar fracture with ankle mortise disruption. Complicated by chronic pain from right foot Charcot arthropathy. She was splinted and instructed in strict NWB status and d/c to [facility]. Of note she had just been dxed with new onset Afib on 11/24 and started on diltiazem and apixaban.Returned to [facility] on 12/13, several days after d/c from [facility], because of difficulty ambulating at home and unable to help her due to his own issues. D/C on 12/15 to [facility].Was sent to the [facility] ED on 12/17 because of SOB and AMS.Labs and vitals were WNL (except Na+147 and BNP 222) CXR showed pulmonary edema with small pleural effusions. Neg for RSV/influenza and covid.EKG showed NSR and she was continued on diltiazem and apixaban.She was txed with IV lasix and K+A left dhillon wound was followed by wound care. TATI CURRIE [address] [facility], [address], [place], [address], [facility] 02/07/2024 14:37:38 02/10/2024 text/html This is an [...] and s/p MSSA sepsis. TATI CURRIE [address] [facility], [address], [place], [address], [facility] 02/10/2024 12:44:47 02/14/2024 text/html I am seeing this 88 yo woman for an acute visit today to f/u on RLE fx, ulcers and NWB status.Son has had concerns about mother refusing wound care and this is being addressed by nursing staff.She was seen at the [facility] wound clinic on 02/06 and it was [...] and s/p MSSA sepsis. Janee Davis MD [address] [place] [address], [address], [place], [address], [facility] 03/11/2024 19:10:29 02/18/2024 text/html This is an 88 yo woman due for discharge today. Patient has been in and out of rehabs and hosp since 11/26 when she broke her right ankle, most recently at [facility] for a CHF exacerbation.She initially presented to the [facility] on 11/26 after an unknown injury. Found to have a right Acute displaced bimalleolar fracture with ankle mortise disruption. Complicated by chronic pain from right foot Charcot arthropathy. She was splinted and instructed in strict NWB status and d/c to [facility]. Of note she had just been dxed with new onset Afib on 11/24 and started on diltiazem and apixaban.Returned to [facility] on 12/13, several days after d/c from [facility], because of difficulty ambulating at home and unable to help her due to his own issues. [facility]Was sent to the [facility] ED on 12/17 because of SOB and AMS.Labs and vitals were WNL (except Na+147 and BNP 222) CXR showed pulmonary edema with small pleural effusions. Neg for RSV/influenza and covid.EKG showed NSR and she was continued on diltiazem and apixaban.She was txed with IV lasix and K+A left dhillon wound was followed by wound care.She was transferred to [facility] on [facility] was done on 12/23 [...] and s/p MSSA sepsis. TATI CURRIE [address] [facility], [address], [place], [address], [facility] 02/18/2024 14:26:35 OBGyn Episode No OBEpisode recorded.
--- OUTSIDE RECORDS SUMMARY | 2024-12-06 13:50 | XMS_ITS | Clinical Summary ---
Author Organization [facility] Address [address] [place] [phone] Phone Care Team Providers Care Vp Integration Name Role Phone Christopher Zamudio MD Primary Care Provider [phone] Allergies Active Allergy Reactions Criticality Noted Date [...] 3 12/27/2022 Active epoetin jayna (EPOGEN,PROCRIT ) 27679 UNIT/ML injectionIndica tions:Anemia due to Renal Failure [...] Overview (09/16/2022): Seen at [facility]. History of malignant basal cell neoplasm of skin 01/27/2019 Overview (09/16/2022): lip Encounters Date Type Department Care Team Description 2024 Office Communication [facility] [address] [phone] Neo Rollins MD 09/28/2024 Telephone [facility] [address] [address] Concepción Ibrahim 09/26/2024 2:00 PM EST Office Visit [facility] [address] [address] Neo Rollins MD Chronic kidney disease, stage 4 (severe) (HCC) (Primary Dx); Anemia in chronic kidney disease from Last 3 Months Immunizations Immunization Administration Dates Next Due Influenza Vaccine, Quadrivalent, [...] Office Visit [facility] [address] [phone] Neo Rollins MD [address] [facility] [address] [place] [phone] Health Maintenance Due Date Last Done Comments Diabetes: Hemoglobin A1C 09/23/2020 04/18/2019 Diabetes: Ophthalmology Exam 09/23/2020 Diabetes: Pedal Pulse Checked 09/23/2020 Diabetes: Sensory Foot Exam 09/23/2020 Diabetes: Visual Foot Exam 09/23/2020 Pneumococcal Vaccine: 50+ Ye ars (2 of 2 - PCV) 07/15/2022 07/15/2021 Influenza Vaccine (Season Ended) 2025 07/31/20 Pneumococcal Vaccine: Peds ( 0 to 5 Years) and At-Risk Patients (6 to 49 Years) Discontinued 07/15/2021 Hepatitis B Vaccine Aged Out No longe r eligible based on patient's age to complete this topic Procedures Procedure Name Priority Date/Time Associated Diagnosis Comments HEMOGLOBIN A1C Routine 04/18/2019 10:34 AM EDT from Last 3 Months or Most Recently Relevant to Health Maintenance Results * Hemoglobin A1c (04/18/2019 10:34 AM EDT) [...] average glucose, using the formula of the [id number] Average Glucose study (ADAG), Diabetes Care, Vol.31,#8, Mar. 2007 04/18/2019 10:3 4 AM EDT Christopher Zmaudio MD LAB BLOOD ORDERABLES Final Resu lt [place] from Last 3 Months or Most Recently Relevant to Health Maintenance Insurance [facility] Medicare Medicaid [place] Medicare [facility] Medicaid [place] Care Teams Vp Integration Relationship Specialty Start Date End Date Christopher Zamudio MD [address] [place], [place] PCP - General 09/02/20
--- OUTSIDE RECORDS SUMMARY | 2024-12-06 13:50 | XMS_ITS | Clinical Summary ---
Author Organization [facility] Address [address] [place] [phone] Care Team Providers Care Animal Nursery Worker Name Role Phone Christopher Zamudio MD Primary Care Provider Surgical History Surgery Date Site/Laterality Comments CHOLECYSTECTOMY PROCEDURE: HISTORICAL CHOLECYSTECTOMY; COMMENT: 1981 LEG SURGERY 1985 PROCEDURE: HISTORICAL LEG SURGERY; COMMENT: Vein ablation APPENDECTOMY PROCEDURE: HISTORICAL APPENDECTOMY; COMMENT: 1981 OTHER SURGICAL HISTORY 08/18/2023 Right PROCEDURE: [place] INCISION BONE CORTEX FOOT; COMMENT: right, 5th metatarsal OTHER SURGICAL HISTORY 08/18/2023 Right PROCEDURE: [place] BIOPSY BONE OPEN SUPERFICIAL; COMMENT: right, 5th proximal phalanx OTHER SURGICAL HISTORY 08/18/2023 Right PROCEDURE: [place] SECONDARY CLOSURE SURG WOUND/DEHSN XTNSV/COMP Medical History Medical History Date Comments HTN (hypertension) DX:HTN (hyper tension) 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 Invasive SCC. History of basal cell carcin miley of skin 01/27/2019 DX:History of basal cell car cinoma of skin; COMMENT: lip Diabetic neuropathy (CMS/HCC V24, CMS/HCC V28) 10/17/2020 DX:Diabetic neuropathy (HCC) ; COMMENT: Bilateral hands and feet. 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 History of cataract 10/17/2020 DX:History o f cataract Type 2 diabetes mellitus wit h cataract (CMS/HCC V24, CMS/HCC V28) 10/17/2020 DX:Type 2 diabetes mellitus with cataract ([facility]) Arrhythmia 10/17/2020 DX:Arrhythmia Family History Medical History [...] Annual BMP Blood Test 08/07/2022 Influenza Vaccine (Season Ended) 2025 HIB Vaccines Aged Out No longer eligi [...] age to complete this topic Meningococcal B Vaccine Aged Out No l onger eligible based on patient's age to complete this topic RSV Immunization Patients Under 20 months Aged Out No longer eligible b ased on patient's age to complete this topic Varicella Vaccines Aged Out No longer eligible based on patient's age to complete this topic Advance Directives Documents on File Type Date Recorded 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
== END 2024-12-06 11:23 | disposition home or self-care (01) ==
LOC: HO.LAB 11:22
PROVIDERS: Visit Provider Internal Medicine Medical Oncology
DX: N18.4 Chronic kidney disease, stage 4 (severe) (principal); D64.9 Anemia, unspecified
CPT/HCPCS: 36415; 80053; 82728; 83540; 85025

== ENCOUNTER 2024-12-13 13:42 | Outpatient (AMB) | payer MEDICARE, SELFPAY ==
[2024-12-13 13:57] VITALS: BP 136/64; PULSE 66; RESP 18; TEMP 36.3; O2SAT 99; BMI 31.9
--- NOTE | 2024-12-13 13:57 | MHC.PC.OV ---
Vital Signs 12/13/24 13:57 Height 5 ft 5 in Weight 192 lb BMI 31.9 BP 136/64 Blood Pressure Location Lt brachial Position Sitting Respiration 18 Pulse 66 Pulse Source Pulse Oximeter Temp 97.3 F Temp Source Oral Pulse Oximetry (%) 99 Oxygen Delivery Method Room Air Comment Pt reported wt and ht Intake Visit Reasons: SHARAD Dr Zamudio Ophthalmology Assistant Required: No Accompanied by: Son Allergies codeine [CODEINE] Allergy (Intermediate, Verified 12/13/24 13:58) BACK PAIN pollen extracts [POLLEN] Allergy (Mild, Verified 12/13/24 13:58) SINUS IRRITATION metoprolol Adverse Reaction (Intermediate, Verified 12/13/24 13:58) Hallucinations Tobacco use date assessed: 12/13/24 Fall risk assessment: No Falls in past year Dental Screening Dental Screen Date: 12/13/24 Did you have a dental visit in the last 12 months?: No Did you have a dental problem in the last 6 months where you did not have access to dental care?: No Was dental information given to patient?: No HPI SHARAD Dr Zamudio HPI Details The patient is an 89 year old female presenting for a routine check-up while managing several chronic health conditions and to transition care from Dr. Zamudio, who retired. Over the years, she has maintained a follow-up schedule with her creative services coordinator, Dr. Rollins, and pneumatic tube repairer, ensuring consistent monitoring of her chronic kidney disease and anemia. She has a comprehensive medication regimen, including Apixaban for atrial fibrillation and omeprazole for GERD. She previously stopped using furosemide due to concerns about renal impact. Her hypertension and hyperlipidemia seem well-controlled presently. She reports the cessation of recent gout attacks, though she remains cautious, aware of triggers like pressure on affected joints. Her nightly urination interrupts her sleep, which concerns her son, but she is hesitant to add more medications or devices based on past negative experiences with oral medications, such as metoprolol. Hearing impairment from impact cerumen requires further action, as it's affecting her communication. [facility] Medical History Hyperlipidemia CKD (chronic kidney disease) stage 4, GFR 15-29 ml/min Atrial fibrillation Osteomyelitis Gout Anemia Hx of type A viral hepatitis Obesity Diabetes mellitus Surgical History History of foot surgery History of surgical removal of skin lesion History of biopsy History of excision of lesion H/O varicose vein ligation History of cholecystectomy Family History Father Gastric cancer Mother Acute CVA (cerebrovascular accident) Diabetes Brother Colon cancer Social History Household Members: Children Housing: House Do you presently have visiting nurse or other home services: Yes Alcohol intake: never Patient Tobacco Use Status: Never used Tobacco e-Cigarette/Vaping Use: Never Used Second Hand Smoke Exposure: No service: No Current occupational status: retired Cognitive needs: Yes (walker ) Hearing needs: No Vision needs: Yes Questionnaire Thrive Questionnaire Date Thrive assessed: 12/13/24 I am a: Patient What is your living situation today?: I have a steady place to live Within the past 12 months, did the food you bought not last and you didn't have the money to get more?: Never true Within the past 12 months, did you worry whether your food would run out before you got money to buy more?: Never true Do you have trouble paying for medicines?: No Do you have trouble getting transportation to medical appointments?: No Do you have trouble paying your heating and electricity bill?: No Do you have trouble taking care of your child, family member or friend?: No Do you have trouble with day-to-day activities such as bathing, preparing meals, shopping, managing finances, etc.?: No Are you currently unemployed and looking for a job?: No Are you interested in more education?: No Please select the resources that you would like help with: None Currently or been in a relationship where the following occur: No concerns reported THRIVE Score: 0 AUDIT C Alcohol Use Questionnaire (AUDIT-C) 1. How often do you have a drink containing alcohol?: Never 3. How often do you have six or more drinks on one occasion?: Never Total Score: 0 Score Reviewed/Action Taken: No IWONA-7 AMB Questionnaire IWONA-7 Date IWONA - 7 assessed: 09/14/24 Source: Developed by Drs. Wilber Ortega, Vickie Briseno, David Calzada and colleagues, with an educational aide from [employer]. Review of Systems Const Denies headache(s) Eyes Denies loss of vision ENT Denies vertigo, Denies dizziness, Denies headache(s), Reports hearing loss (Hard of hearing) and Denies sore throat Card Denies chest pain, Denies leg edema and Denies lightheadedness Resp Denies cough, Denies hemoptysis and Denies wheezing GI Denies abdominal pain, Denies melena, Denies constipation, Reports heartburn (Minimal), Denies diarrhea and Denies vomiting Denies urinary frequency, Reports nocturia, Denies dysuria and Denies urinary urgency Musc Denies arthralgias, Denies joint swelling, Denies numbness and Denies tingling Neuro Denies Abnormal speech present, Denies behavioral changes, Denies vertigo, Denies dizziness, Denies headache(s), Denies loss of vision, Denies memory loss, Denies numbness and Denies tingling Psych Denies anxiety, Denies behavioral changes, Denies depression, Denies memory loss and Denies panic attacks Richard/Lymph Denies easy bleeding and Denies easy bruising Aller/Immun Denies wheezing Physical exam (Primary Care) Vital Signs: Last Vital Signs Temp 97.3 F 12/13/24 13:57 Pulse 66 12/13/24 13:57 Resp 18 12/13/24 13:57 BP 136/64 12/13/24 13:57 Pulse Ox 99 12/13/24 13:57 Oxygen Delivery Method Room Air 12/13/24 13:57 BMI result Body Mass Index 31.9 Tobacco/Smoking Status: Tobacco use Status Tobacco use date assessed 12/13/24 12/13/24 14:14 Patient Tobacco Use Status Never used Tobacco 12/13/24 14:14 e-Cigarette/Vaping Use Never Used 12/13/24 14:14 Thrive Assessment: Date of Thrive Assessment Date Thrive assessed 12/13/24 12/13/24 14:14 Currently or been in a relationship where the following occur: No concerns reported Const General: healthy appearing, no acute distress, alert and awake Nutritional Appearance: well nourished Orientation/consciousness: oriented to person, oriented to place and oriented to time HENMT Ears: Abnormal EAC present cerumen impaction bilateral General nose exam: Normal nasal mucous membranes and turbinates present Eyes Conjunctivae: conjunctivae normal Sclerae: sclerae normal Pupils: Equal, round and reactive pupils present Neck Neck: Yes no lymphadenopathy and Yes no JVD Thyroid: Thyroid normal Carotids: no bruits Resp Effort & Inspection: normal respiratory effort and not tachypneic Auscultation: no crackles, no rales, no rhonchi and no wheezes Cardio Rate: regular rate Rhythm: abnormal rhythm Heart sounds: no murmurs and normal S1 and S2 GI Palpation (GI): Soft to palpation, nontender, no hepatomegaly and no splenomegaly Auscultation: normal bowel sounds Skin General skin exam: no rashes or lesions noted and dry skin Neuro General: oriented to person, oriented to place and oriented to time Cranial nerves: Yes Equal, round and reactive pupils present Speech: No Abnormal speech present Gait exam (Neuro): Normal gait present Motor exam (neuro): no tremor noted Extrem Right upper extremity: full ROM Left upper extremity: full ROM Right lower extremity: full ROM and edema (compression wrap is in place to right leg) Details: 3+ Left lower extremity: full ROM and edema Details: 2+ Psych Mental Status: mental status grossly normal Speech and movement: Normal speech and movement present Affect: normal affect Attitude: cooperative Thought process: Normal thought process present Results Reviewed Results Reviewed: Laboratory Tests 12/06/24 11:36 WBC 6.3 RBC 4.05 L Hgb 10.5 L Hct 33.9 L MCV 83.7 MCH 25.9 L MCHC 31.0 RDW 19.1 H Plt Count 271 Sodium 143 Potassium 4.8 Chloride 110 H Carbon Dioxide 24 Anion Gap 14 BUN 41 H Creatinine 1.98 H Estimated GFR 24 Random Glucose 77 Calcium 9.9 Iron 43 TIBC 276 % Saturation 16 Unsat Iron Binding 233 Ferritin 35 Total Bilirubin 0.3 AST 26 ALT 12 Alkaline Phosphatase 62 Total Protein 6.2 L Albumin 3.2 L Coding Level of Care Code Est Pt Level 4 (53815) Diagnoses Hypertension, unspecified type I10 Hypertension type: unspecified Diabetic foot ulcer associated with type 2 diabetes mellitus, unspecified laterality, unspecified part of foot, unspecified ulcer stage E11.621; L97.509 Diabetes mellitus type: type 2 Diabetic foot ulcer location: unspecified part of foot Laterality: unspecified laterality Non-pressure ulcer stage: unspecified non-pressure ulcer stage 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, unspecified laterality M1A.3790 Gout site: toe Gout etiology: due to renal impairment Chronicity: chronic Laterality: unspecified laterality Presence of tophus: without tophus Hypertension associated with type 2 diabetes mellitus E11.59; I15.2 Normochromic normocytic anemia D64.9 CKD (chronic kidney disease) stage 4, GFR 15-29 ml/min N18.4 Congestive heart failure, unspecified HF chronicity, unspecified heart failure type I50.9 Heart failure type: unspecified Heart failure chronicity: unspecified Hyperlipidemia, unspecified hyperlipidemia type E78.5 Hyperlipidemia type: unspecified Time Spent (min) 41 Assessment & Plan Assessment & Plan (1) Hypertension: Code(s): I10 - Essential (primary) hypertension Category: Medical Qualifiers: Hypertension type: unspecified Qualified Code(s): I10 - Essential (primary) hypertension (2) Diabetic foot ulcer: Comment: She has been taking po Levaquin and is done. Foot looks improved. Code(s): E11.621 - Type 2 diabetes mellitus with foot ulcer; L97.509 - Non-pressure chronic ulcer of other part of unspecified foot with unspecified severity Category: Medical Qualifiers: Diabetes mellitus type: type 2 Diabetic foot ulcer location: unspecified part of foot Laterality: unspecified laterality Non-pressure ulcer stage: unspecified non-pressure ulcer stage Qualified Code(s): E11.621 - Type 2 diabetes mellitus with foot ulcer; L97.509 - Non-pressure chronic ulcer of other part of unspecified foot with unspecified severity (3) Gout: Code(s): M10.9 - Gout, unspecified Category: Medical Qualifiers: Gout site: toe Gout etiology: due to renal impairment Chronicity: chronic Laterality: unspecified laterality Presence of tophus: without tophus Qualified Code(s): M1A.3790 - Chronic gout due to renal impairment, unspecified ankle and foot, without tophus (tophi) (4) Hypertension associated with type 2 diabetes mellitus: Code(s): E11.59 - Type 2 diabetes mellitus with other circulatory complications; I15.2 - Hypertension secondary to endocrine disorders Category: Medical (5) Normochromic normocytic anemia: Code(s): D64.9 - Anemia, unspecified Category: Medical (6) CKD (chronic kidney disease) stage 4, GFR 15-29 ml/min: Code(s): N18.4 - Chronic kidney disease, stage 4 (severe) Category: Medical (7) CHF (congestive heart failure): Code(s): I50.9 - Heart failure, unspecified Category: Medical Qualifiers: Heart failure type: unspecified Heart failure chronicity: unspecified Qualified Code(s): I50.9 - Heart failure, unspecified (8) Hyperlipidemia: Code(s): E78.5 - Hyperlipidemia, unspecified Category: Medical Qualifiers: Hyperlipidemia type: unspecified Qualified Code(s): E78.5 - Hyperlipidemia, unspecified Plan Monitoring of anemia will proceed through bi-weekly labs, with adjustments made as necessary by her pneumatic tube repairer. Management of hypertension excludes furosemide, focusing on less renal-impacting alternatives. Atrial fibrillation is controlled with Apixaban and Diltiazem to prevent further cardiovascular complications. Address hearing issues by scheduling ear irrigation after using debrox ear drops. Await worsening symptoms before considering urology referral for nocturia, per patient. Emphasize continuity in the management of GERD with omeprazole. Encourage adherence to vitamin supplementation to maintain optimal bone health and overall wellbeing. Patient was informed and verbally consented to the use of an ambient scribe for clinic note documentation during this visit. Orders: Orders Hemoglobin A1c 3 Months E11.9 - Type 2 diabetes mellitus without complications, I10 - Essential (primary) hypertension, I42.9 - Cardiomyopathy, unspecified, I48.91 - Unspecified atrial fibrillation, I50.9 - Heart failure, unspecified, M10.9 - Gout, unspecified, M19.071 - Primary osteoarthritis, right ankle and foot, N18.4 - Chronic kidney disease, stage 4 (severe) Vitamin D 25-OH Total 3 Months E11.9 - Type 2 diabetes mellitus without complications, I10 - Essential (primary) hypertension, I42.9 - Cardiomyopathy, unspecified, I48.91 - Unspecified atrial fibrillation, I50.9 - Heart failure, unspecified, M10.9 - Gout, unspecified, M19.071 - Primary osteoarthritis, right ankle and foot, N18.4 - Chronic kidney disease, stage 4 (severe) UA CC w/rflx Micro + Cult 3 Months E11.9 - Type 2 diabetes mellitus without complications, I10 - Essential (primary) hypertension, I42.9 - Cardiomyopathy, unspecified, I48.91 - Unspecified atrial fibrillation, I50.9 - Heart failure, unspecified, M10.9 - Gout, unspecified, M19.071 - Primary osteoarthritis, right ankle and foot, N18.4 - Chronic kidney disease, stage 4 (severe) TSH reflex Free T4 3 Months E11.9 - Type 2 diabetes mellitus without complications, I10 - Essential (primary) hypertension, I42.9 - Cardiomyopathy, unspecified, I48.91 - Unspecified atrial fibrillation, I50.9 - Heart failure, unspecified, M10.9 - Gout, unspecified, M19.071 - Primary osteoarthritis, right ankle and foot, N18.4 - Chronic kidney disease, stage 4 (severe) Uric Acid 3 Months I10 - Essential (primary) hypertension Complete Blood Count Auto Diff 3 Months E11.9 - Type 2 diabetes mellitus without complications, I10 - Essential (primary) hypertension, I42.9 - Cardiomyopathy, unspecified, I48.91 - Unspecified atrial fibrillation, I50.9 - Heart failure, unspecified, M10.9 - Gout, unspecified, M19.071 - Primary osteoarthritis, right ankle and foot, N18.4 - Chronic kidney disease, stage 4 (severe) Comprehensive [place]. Panel Fast 3 Months E11.9 - Type 2 diabetes mellitus without complications, I10 - Essential (primary) hypertension, I42.9 - Cardiomyopathy, unspecified, I48.91 - Unspecified atrial fibrillation, I50.9 - Heart failure, unspecified, M10.9 - Gout, unspecified, M19.071 - Primary osteoarthritis, right ankle and foot, N18.4 - Chronic kidney disease, stage 4 (severe) Lipid Panel 3 Months E11.9 - Type 2 diabetes mellitus without complications, I10 - Essential (primary) hypertension, I42.9 - Cardiomyopathy, unspecified, I48.91 - Unspecified atrial fibrillation, I50.9 - Heart failure, unspecified, M10.9 - Gout, unspecified, M19.071 - Primary osteoarthritis, right ankle and foot, N18.4 - Chronic kidney disease, stage 4 (severe) Glucose Fasting 3 Months E11.9 - Type 2 diabetes mellitus without complications, I10 - Essential (primary) hypertension, I42.9 - Cardiomyopathy, unspecified, I48.91 - Unspecified atrial fibrillation, I50.9 - Heart failure, unspecified, M10.9 - Gout, unspecified, M19.071 - Primary osteoarthritis, right ankle and foot, N18.4 - Chronic kidney disease, stage 4 (severe) Patient Instructions: - Apply ear softening drops twice daily for five days as instructed for wax removal. - Continue taking all prescribed medications as directed. - Use omeprazole regularly to manage heartburn. - Attend scheduled follow-up appointment in three months, and return in two weeks for ear irrigation. - Maintain multivitamin intake as previously directed. - Contact the office immediately if nocturnal urination symptoms worsen. - Rest as needed during the day to manage nocturia-related fatigue.
--- OUTSIDE RECORDS SUMMARY | 2024-12-13 16:22 | XMS_ITS | Clinical Summary ---
Author Organization [facility] Address [address] [place] [id number] Care Team Providers Care Cinder Crane Operator Name Role Phone Christopher Zamudio MD Primary Care Provider [phone] Surgical History Surgery Date Site/Laterality Comments CHOLECYSTECTOMY PROCEDURE: HISTORICAL CHOLECYSTECTOMY; COMMENT: 1981 LEG SURGERY 1985 PROCEDURE: HISTORICAL LEG SURGERY; COMMENT: Vein ablation APPENDECTOMY PROCEDURE: HISTORICAL APPENDECTOMY; COMMENT: 1981 OTHER SURGICAL HISTORY 08/18/2023 Right PROCEDURE: MT INCISION BONE CORTEX FOOT; COMMENT: right, 5th metatarsal OTHER SURGICAL HISTORY 08/18/2023 Right PROCEDURE: MT BIOPSY BONE OPEN SUPERFICIAL; COMMENT: right, 5th proximal phalanx OTHER SURGICAL HISTORY 08/18/2023 Right PROCEDURE: MT SECONDARY CLOSURE SURG WOUND/DEHSN XTNSV/COMP Medical History [...] (HCC); COMMENT: Seen at [facility]. History of cataract 10/17/2020 DX:History o f cataract Type 2 diabetes mellitus wit h cataract (CMS/HCC V24, CMS/HCC V28) 10/17/2020 DX:Type 2 diabetes mellitus with cataract ([facility]) Arrhythmia 10/17/2020 DX:Arrhythmia Family History Medical History [...] Documents on File Type Date Recorded Patient Childcare Teacher Expl anation Health Care Decision (hx) 08/20/2023 AD العراقي DIRECTIVE Health Care Decision (hx) 08/20/2023 AD العراقي DIRECTIVE Care Teams Cinder Crane Operator Relationship Specialty Start Date End Date Christopher Zamudio MD [address] [place] [address] [place] [id number] PCP - General 09/10/16
--- OUTSIDE RECORDS SUMMARY | 2024-12-13 16:22 | XMS_ITS | Clinical Summary ---
Author Organization [facility] Address [address] [place] [phone] Phone Care Team Providers Care Life Agent Name Role Phone Christopher Zamudio MD Primary Care Provider [phone] Allergies Active Allergy Reactions Criticality Noted Date [...] 3 12/27/2022 Active epoetin jayna (EPOGEN,PROCRIT ) 04302 UNIT/ML injectionIndica tions:Anemia due to Renal Failure [...] Overview (09/16/2022): Seen at [facility]. History of malignant basal cell neoplasm of skin 01/27/2019 Overview (09/16/2022): lip Encounters Date Type Department Care Team Description 2024 Office Communication [facility] [address] [phone] Neo Rollins MD 09/28/2024 Telephone [facility] [address] [phone] Concepción Ibrahim 09/26/2024 2:00 PM EST Office Visit [facility] [address] [phone] Neo Rollins MD Chronic kidney [...] Office Visit [facility] [address] [phone] Neo Rollins MD [address] [facility] [address] [place] [phone] Health Maintenance Due Date Last Done Comments [...] average glucose, using the formula of the K2D-Vxsdztq Average Glucose study (ADAG), Diabetes Care, Vol.31,#8, Mar. 2007 04/18/2019 10:3 4 AM EDT Christopher Zamudio MD LAB BLOOD ORDERABLES Final Resu lt [place] from Last 3 Months or Most Recently Relevant to Health Maintenance Insurance [facility] Medicare Medicaid [place] [facility] [place] Care Teams Life Agent Relationship Specialty Start Date End Date Christopher Zamudio MD [address] [place], [place] PCP - General 09/02/20
--- OUTSIDE RECORDS SUMMARY | 2024-12-13 16:22 | XMS_ITS | Clinical Summary ---
Author Organization [employer] Address [address] [place] [address] [address] [place] [address] Care Team Providers Care Tube Man Name Role Phone Unavailable Primary Care Provider [...]
== END 2024-12-13 14:56 | disposition home or self-care (01) ==
LOC: HO.HMCH 13:43
PROVIDERS: PCP Internal Medicine
DX: I12.9 Hypertensive chronic kidney disease with stage 1 through stage 4 chronic kidney disease, or unspecified chronic kidney disease (principal); E11.621 Type 2 diabetes mellitus with foot ulcer; L97.509 Non-pressure chronic ulcer of other part of unspecified foot with unspecified severity; M1A.3790 Chronic gout due to renal impairment, unspecified ankle and foot, without tophus (tophi); E11.59 Type 2 diabetes mellitus with other circulatory complications; I15.2 Hypertension secondary to endocrine disorders; D64.9 Anemia, unspecified; N18.4 Chronic kidney disease, stage 4 (severe); I50.9 Heart failure, unspecified; E78.5 Hyperlipidemia, unspecified

== ENCOUNTER → 2024-12-13 13:42 | Outpatient (BNVA) | payer MEDICARE, SELFPAY | PROVIDERS: PCP Internal Medicine | DX: E11.621 Type 2 diabetes mellitus with foot ulcer (principal); L97.509 Non-pressure chronic ulcer of other part of unspecified foot with unspecified severity; E11.59 Type 2 diabetes mellitus with other circulatory complications; D64.9 Anemia, unspecified; E78.5 Hyperlipidemia, unspecified; I13.0 Hypertensive heart and chronic kidney disease with heart failure and stage 1 through stage 4 chronic kidney disease, or unspecified chronic kidney disease; E11.22 Type 2 diabetes mellitus with diabetic chronic kidney disease; N18.4 Chronic kidney disease, stage 4 (severe); I50.9 Heart failure, unspecified | CPT/HCPCS: 99212 ==

== ENCOUNTER 2024-12-20 11:03 | Outpatient (REF) | payer MEDICARE, SELFPAY ==
[2024-12-20 11:27] LABS: MANUAL DIFF FLAG NO
[2024-12-20 11:30] LABS: Basophils Percent Auto 0.3 % (0-2); Eosinophils Absolute Auto 0.2 X10*3/uL (0.0-0.4); Eosinophils Percent Auto 3.8 % (0-4); Hematocrit 32.6 % (37.0-47.0); Hemoglobin 10.2 g/dl (12.0-16.0); Imm Gran Abs Auto 0.02 X10*3/uL (0.00-0.03); Imm Gran Pct Auto 0.3 % (0.0-0.4); Lymphocytes Absolute Auto 1.3 X10*3/uL (1.2-4.9); Lymphocytes Percent Auto 20.9 % (20-40); Mean Corpuscular HGB Conc 31.3 g/dl (31.0-35.0); Mean Corpuscular Hemoglobin 26.4 pg (27.0-33.0); Mean Corpuscular Volume 84.2 fL (80.0-98.0); Mean Platelet Volume 12.3 fL (9.4-12.3); Monocytes Absolute Auto 0.4 X10*3/uL (0.1-1.2); Monocytes Percent Auto 5.9 % (2-11); Neutrophils Absolute Auto 4.2 x10*3/uL (2.0-8.3); Neutrophils Percent Auto 68.8 % (45-73); Platelet Count 249 X10*3/uL (160-400); Red Blood Count 3.87 X10*6/uL (4.20-5.50); Red Cell Distribution Width 18.8 % (11.0-16.0); White Blood Count 6.1 X10*3/uL (4.8-10.8)
--- OUTSIDE RECORDS SUMMARY | 2024-12-20 12:38 | XMS_ITS | Data Portability ---
[facility] Address [address] [place] [address] Care Team Providers Care Swine Nutritionist Name Role Phone TISHA MANZO Primary Care Provider YARA CISNEROS 2ND FLOOR OTHER [phone] Assessment Encounter Date Assessment Date Assessment LastModified [...] Address Organization Details Recorded Time Bacteremi a 1149666 Active 2022 MSSA foot infection Not Available [facility] 4 02:47:47 Type 2 diabetes mellitus 75693747 Active 2022 Not Available [facility] 4 02:47:47 Hypothyro idism 94923159 Active 2022 Not Available [facility] 4 02:47:47 Chronic kidney disease 981878493 Active 2022 Not Available [facility] 4 02:47:47 Gout 08224710 Active 2022 Not Available [facility] 4 02:47:47 Gastroeso phageal reflux disease without esophagit is 945455779 Active 2022 Not Available [facility] 4 02:47:47 Hyperlipi demia 28623287 Active 2022 Not Available [facility] 4 02:47:47 Essential hypertens ion 70294372 Active 2022 Not Available [facility] 4 02:47:47 Hypomagne semia 040476872 Active 2023 Not Available [facility] 4 02:47:47 Vitamin D deficienc y 31491742 Active 2023 Not Available [facility] 4 02:47:47 Chronic diastolic heart failure 018494689 Active 2023 Janee Davis MD [address] [facility], [facility] [address], [place], [address] , [employer] 4 10:48:17 Anemia 105173733 Active 2023 Janee Davis MD [address] [facility], [address], [place], [address] , [employer] 4 11:10:38 Bimalleol ar fracture of ankle 989193734 Active 2023 TATI CURRIE [address] [facility], [address], [place], [address] , [employer] 4 14:06:55 Stasis dermatiti s and 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 Please review this document and add these problems to the patient's chart manually as needed. Problem Notes None recorded. Medical Equipment None Reported. Allergies Allergen ID Allergen Name Allergen Category Reaction Reaction Severity Criticality Documentation Date Start Date Code Code System Note Provider Name and Address Organization Details Recorded Time 68680 codeine medicatio n Not available Not available Not available 08/20/2023 2670 RxNorm ALVARADO DEL CID NP [address] [facility], [address], [place], [address], [facility] [employer] [facility] 3 10:53:18 Vitals Date Recorded Body height Heart rate Respiratory rate Body temperature Systolic blood pressure Diastolic blood pressure Provider Name and Address Organization Details Last Updated DateTime 4 170.18 cm 80 /min 16 /min 98 [degF] 129 mm[Hg] 78 mm[Hg] TATI CURRIE [address] [facility], [address], [place], [address], [employer] [facility] [employer] [facility] 4 10:52:49 Date Recorded Body height Body temperature Respiratory rate Heart rate Systolic blood pressure Diastolic blood pressure Provider Name and Address Organization Details Last Updated DateTime 4 170.18 cm 97.3 [degF] 18 /min 68 /min 122 mm[Hg] 68 mm[Hg] TATI CURRIE [address] [facility], [address], [place], [address], [facility] [employer] [facility] 4 14:33:03 Date Recorded Body height Heart rate Respiratory rate Body temperature Systolic blood pressure Diastolic blood pressure Provider Name and Address Organization Details Last Updated DateTime 4 170.18 cm 74 /min 18 /min 98 [degF] 132 mm[Hg] 74 mm[Hg] TATI CURRIE [address] [facility], [address], [place], [address], [employer] [facility] [employer] [facility] 4 12:19:44 Date Recorded Body height Body mass index (BMI) Body weight Heart rate Respiratory rate Body temperature Oxygen saturation Oxygen saturation in Arterial blood by Pulse oximetry Systolic blood pressure Diastolic blood pressure Provider Name and Address Organization Details Last Updated DateTime 4 170.18 cm 31.6 kg/m2 01078.6 6 g 79 /min 18 /min 97.4 [degF] 100 % 100 % 141 mm[Hg] 75 mm[Hg] Janee Davis MD [address] [facility], [address], [place], [address], [employer] 4 21:07:19 Date Recorded Body height Heart rate Respiratory rate Body temperature Oxygen saturation Oxygen saturation in Arterial blood by Pulse oximetry Systolic blood pressure Diastolic blood pressure Provider Name and Address Organization Details Last Updated DateTime 4 170.18 cm 79 /min 18 /min 98 [degF] 100 % 100 % 141 mm[Hg] 75 mm[Hg] TATI CURRIE [address] [facility], [address], [place], [address], [employer] 4 14:26:02 Social History Question Answer Notes LastModified by Organizat ion Details LastModified Time Tobacco Smoking Status Never Smoker ALVARADO DEL CID NP [address] [facility], [address], [place], [address], [employer] 08/20/2023 11:16:58 Do You Have An Advance [...] Do You Have A Medical Power Of Retail Merchandising Specialist? Yes Information not available 08/24/2023 What Was [...] adjuvanted, quadrivalent, PF 3 completed Not Available [facility] 09/30/2023 02:47:47 Td(adult) unspecified formulation 1 completed [facility] 12/28/2023 16:20:20 SARS-COV-2 (COVID-19) vaccine, UNSPECIFIED 1 completed [facility] 12/28/2023 16:20:43 SARS-COV-2 (COVID-19) vaccine, UNSPECIFIED 1 completed [facility] 12/28/2023 16:20:50 pneumococcal polysaccharide PPV23 1 completed [facility] 12/28/2023 16:21:57 SARS-COV-2 (COVID-19) vaccine, UNSPECIFIED 1 completed [facility] 12/28/2023 16:22:45 Past Encounters Encounter ID Performer Location Encounter Start Date Encounter Closed Date Diagnosis/Indication Diagnosis SNOMED-CT Code Diagnosis ICD10 Code Diagnosis Note [id number] SCOTT NOBLES [address] [place] [address] 08/20/2023 09:52:59 08/31/2023 13:27:41 Bacteremia 8527914 R78.81 flush picc qshiftcefa zolin 1 gm bid to 2/2followu p with vascular as planned Type 2 tiara betes mellitus 59588038 E11.9 humulin/re g 70/30 50 units bidmonitor glucose Chronic ki dney disease 053772173 N18.9 monitor labsavoid nephrotoxi c meds Gastroesop hageal reflux disease without esophagitis 650447391 K21.9 mag ox 400 mg daily to 8omepraz ole 20 mg daily Gout 24272351 M10.9 allopurino l 100 mg dailyD3 1250 [id number] Hyperlipidemia 40228921 E78.5 fenofibrat e 160 mg daily Hypothyroidism 89663112 E03.9 hx of Essential hypertension 05854939 I10 lasix 20 mg dailyhydra lazine 25 mg bidtoprol 25 mg dailymonit or bplisinopr il stopped in hospital [id number] ALVARADO DEL CID NP [address] [place] [address] 08/24/2023 13:44:02 08/25/2023 03:52:21 Type 2 diabetes mellitus 97898924 E11.9 humulin/re g 70/30 50 units bidmonitor glucose Bacteremia 3341393 R78.8 1 flush picc qshiftcefa zolin 1 gm bid to 2/2followu p with vascular as planned [id number] Janee Davis MD [address] [place] [address] 08/24/2023 15:18:19 08/31/2023 14:10:55 Type 2 diabetes mellitus 26853424 E11.9 With some hypoglycem ia.Humulin 70/30 was lowered from 50 units BID to 25U BID and SSI continued. Monitor fingerstic ks, will change from TID to qid, with low dose SS at hs.HgA1C was 6.7 inpt. Bacteremia 6931542 R78.8 1 As above Osteomyeli tis of right foot 8489091636 954831 M86.271 S/P I&D and debridemen t. Vasc. surgeon (Dr. Friedman) felt that all diseased bone was removed.Co ntinue cefazolin 1 gm IV BID until 09/24 to complete 6 wk course.Con tinue wound care as ordered.F/ U with Dr. Friedman as planned. Chronic ki dney disease 346974467 N18.32 Back to baseline.C ontinue to avoid nephrotoxi c meds as able.Monit or labs.Renal consult prn. Gastroesop hageal reflux disease without esophagitis 177161789 K21.9 No current sxs.Contin ue omeprazole 20 mg qdMonitor sxs. Gout 17552118 M10.09 No current sxs.Contin ue allopurino l 100 mg qdMonitor for flare. Hyperlipidemia 42764053 E78.49 Continue fenofibrat e 160 mg qdMonitor as outpt. Hypothyroidism 65020610 E03.8 In hx.TSH WNL in 11/2022Moni tor as outpt Essential hypertension 22942944 I10 BP borderline at times, but acceptable for age.BP goal for this elderly woman is permissive HTN, with SBP<150 and DBP<90Cont inue lasix 20 mg qd, hydralazin e 25 mg BID and metoprolol 25 mg qd.Monitor BP and labs.No need to restart lisinopril at this time Hypomagnesemia 849267984 E83.42 Continue Mg+ 400 mg qd until 08/30, then recheck level Vitamin D deficiency 347 67192 E55.9 Continue ergocalcif denisse 50,000 IU every 14 days.Monit or levels [id number] [facility] [address] [place] [address] 08/31/2023 11:38:57 09/08/2023 12:37:11 Bacteremia 1231271 R78.81 continuece fazolin 1 gm bid to 2ollow up with vascular Type 2 tiara betes mellitus 55394038 E11.9 200-280's mainlyhumu mahesh/reg 70/30 50 units bidmonitor glucose Chronic ki dney disease 730284443 N18.9 monitor labsavoid nephrotoxi c meds Gastroesop hageal reflux disease without esophagitis 730060913 K21.9 mag ox 400 mg daily to 08/30omepraz ole 20 mg daily Gout 54187147 M10.9 allopurino l 100 mg dailyD3 1250 [id number] Hyperlipidemia 83606234 E78.5 fenofibrat e 160 mg daily Hypothyroidism 30948894 E03.9 hx of Essential hypertension 14896201 I10 lasix 20 mg dailyhydra lazine 25 mg bidtoprol 25 mg dailymonit or bplisinopr il stopped in hospital [id number] TATI CURRIE [address] [address] 09/02/2023 09:40:27 09/08/2023 13:38:51 Bacteremia 1120497 R78.81 continueMS SA right footcefazo mahesh 1 gm bid to 22follow up with vascular Type 2 tiara betes mellitus 95164413 E11.9 200-280's mainlychan ged back to humulin/re g 70/30 50 units bidmonitor glucose Osteomyeli tis of right foot 6178295802 315831 M86.271 S/P I&D and debridemen t. Vasc. surgeon (Dr. Friedman) felt that all diseased bone was removed.Co ntinue cefazolin 1 gm IV BID until 2 to complete 6 wk course.Con tinue wound care as ordered.F/ U with Dr. Friedman as planned. Edema of l ower extremity 980177865 R60.0 chronic BLEright greater than left [id number] TATI CURRIE [address] [address] 09/07/2023 13:02:41 09/13/2023 15:17:43 Bacteremia 4389999 R78.81 continueMS SA right footcefazo mahesh 1 gm bid to ollow up with vascular Type 2 tiara betes mellitus 61554661 E11.9 lispro SSChumulin /reg 70/30 50 units bidmonitor glucose Osteomyeli tis of right foot 3125382098 537525 M86.271 S/P I&D and debridemen t. Vasc. surgeon (Dr. Friedman) felt that all diseased bone was removed.Co ntinue cefazolin 1 gm IV BID until 09/24 to complete 6 wk course.Con tinue wound care as ordered.F/ U with Dr. Friedman as planned. Edema of l ower extremity 135822753 R60.0 chronic BLEright greater than left [id number] TATI CURRIE [address] [address] 09/10/2023 06:52:27 09/15/2023 13:31:46 Bacteremia 5778142 R78.81 continueMS SA right footcefazo mahesh 1 gm bid to ollow up with vascular Type 2 tiara betes mellitus 16617256 E11.9 I spoke with patient today. previously [...] bidmonitor glucose Osteomyeli tis of right foot 8426082793 715161 M86.271 S/P I&D and debridemen t. Vasc. surgeon (Dr. Friedman) felt that all diseased bone was removed.Co ntinue cefazolin 1 gm IV BID until 2/2 to complete 6 wk course.Con tinue wound care as ordered.F/ U with Dr. Friedman as planned. Edema of l ower extremity 920503945 R60.0 chronic BLEright greater than left [id number] ATTI CURRIE [place] [address] [place] [address] 09/14/2023 07:53:08 09/17/2023 08:57:48 Bacteremia 5103893 R78.81 continueMS SA right footcefazo mahesh 1 gm bid to 2/2follow up with vascular Type 2 tiara betes mellitus 61551239 E11.9 I spoke with patient today. previously was on humulin 70/30 50 units bid that was decreased to 25 units BID.rosmery t bs noted to be high 200-300s [...] bidmonitor glucose Osteomyeli tis of right foot 3792392166 697369 M86.271 S/P I&D and debridemen t. Vasc. surgeon (Dr. Friedman) felt that all diseased bone was removed.Co ntinue cefazolin 1 gm IV BID until 2/2 to complete 6 wk course.Con tinue wound care as ordered.F/ U with Dr. Friedman as planned. Edema of l ower extremity 565457294 R60.0 chronic BLEright greater than left [id number] TATI CURRIE [address] [address] 09/17/2023 08:23:28 09/22/2023 11:50:26 Bacteremia 9384463 R78.81 continueMS SA right footcefazo mahesh 1 gm bid to 2/2follow up with vascular Type 2 tiara betes mellitus 87062064 E11.9 lispro SSChumulin /reg 70/30 30 units bidmonitor glucose Osteomyeli tis of right foot 8485098704 488136 M86.271 S/P I&D and debridemen t. Vasc. surgeon (Dr. Friedman) felt that all diseased bone was removed.Co ntinue cefazolin 1 gm IV BID until 2 to complete 6 wk course.Con tinue wound care as ordered.F/ U with Dr. Friedman as planned. Edema of l ower extremity 385505201 R60.0 chronic BLEright greater than left [id number] TATI CURRIE [address] [address] 09/21/2023 07:59:18 09/29/2023 08:59:51 Bacteremia 9362471 R78.81 continueTX SA right footcefazo mahesh 1 gm bid to 2/2follow up with vascular Type 2 tiara betes mellitus 84872710 E11.9 lispro SSChumulin /reg 70/30 30 units bidmonitor glucose Osteomyeli tis of right foot 8854920811 471524 M86.271 S/P I&D and debridemen t. Vasc. surgeon (Dr. Friedman) felt that all diseased bone was removed.Co ntinue cefazolin 1 gm IV BID until 09/24 to complete 6 wk course.Con tinue wound care as ordered.F/ U with Dr. Friedman as planned. Edema of l ower extremity 752446168 R60.0 chronic BLEright greater than left [id number] TATI CURRIE [address] [address] 09/24/2023 12:21:41 09/29/2023 13:31:08 Bacteremia 6452549 R78.81 resolved Type 2 tiara betes mellitus 32006807 E11.9 humulin/re g 70/30 50 units bid Chronic ki dney disease 478587427 N18.9 monitor labsavoid nephrotoxi c meds Gastroesop hageal reflux disease without esophagitis 067895297 K21.9 mag ox 400 mg daily to 18omepraz ole 20 mg daily Gout 88113148 M10.9 allopurino l 100 mg dailyD3 1250 o95oupr Hyperlipidemia 51084057 E78.5 fenofibrat e 160 mg daily Hypothyroidism 26387364 E03.9 TSH WNL in 11/2022Moni tor as outptcurre ntly not on medication . Essential hypertension 83064542 I10 lasix 20 mg dailyhydra lazine 25 mg bidtoprol 25 mg daily Osteomyeli tis of right foot 6144615449 647010 M86.271 S/P I&D and debridemen t. Vasc. surgeon (Dr. Friedman) felt that all diseased bone was removed.co mpleted IV cefazolin 1 gm IV BID 09/24/23Cont inue wound care as ordered.F/ U with Dr. Friedman as planned. Hypomagnesemia 307468589 E83.42 monitor outpt labs Vitamin D deficiency 347 20576 E55.9 Continue ergocalcif denisse 50,000 IU every 14 days.Monit or levels [id number] Janee Davis MD [address] [place] [address] 12/28/2023 15:33:48 01/13/2024 12:52:53 Chronic diastolic heart failure 705675643 I50.32 Appears euvolemic. Continue furosemide 40 mg qd and hydralazin e 25 mg BID.Monito r resp. status, fluid status, wts and labs. Paroxysmal atrial fibrillation 308050115 I48.0 Rate in good control on diltiazem 120 mg qd.Continu e eliquis 5 mg BID for AC.Monitor HR and bleeding risk. Type 2 tiara betes mellitus 23119672 E11.9 This AM FBS was 88. Last time she was here fastings tended to be ok, but with high sugars later in the day.HgA1C was 7.1 this AMContinue Humulin 70/30 20U BID and SSI.Monito r fingerstic ks TID Chronic ki dney disease 566466848 N18.32 Back to baseline.C ontinue to avoid nephrotoxi c meds as able.Monit or labs.Renal consult prn. Essential hypertension 63617556 I10 BP borderline at times, but acceptable for age.BP goal for this elderly woman is permissive HTN, with SBP<150 and DBP<90Cont inue meds as above.Rebeca tor BP and labs. Gastroesop hageal reflux disease without esophagitis 760594978 K21.9 No current sxs.Contin ue omeprazole 20 mg qdMonitor sxs. Gout 71189932 M10.09 No current sxs.Contin ue allopurino l 100 mg qdMonitor for flare. Hyperlipidemia 20755341 E78.49 Continue fenofibrat e 160 mg qdMonitor as outpt. Hypothyroidism 58770655 E03.8 In hx.TSH WNL inpt.Monit or as outpt Hypomagnesemia 014504409 E83.42 Continue Mg+ 400 mg BID.Monito r levels Vitamin D deficiency 347 55826 E56.8 Vit D supplement is ordered as cholecalci ferol 5000 IU every 14 days.Is supposed to be ergocalcif denisse 50,000 IU qd, will change.Mon itor levels Anemia 756939292 D64.89 Multifacto rial.Follo ws with Dr. White and gets procrit every few wks (has been irregular due to hospitaliz ations).Mo nitor labs Closed bim alleolar fracture of right ankle 9635830741 3105894 S82.841D Four wks from original injury.Con tinue PT/OT for strengthen ing, balance, gait training, safety and function.C ontinue APAP 1000 mg q 4 hrs prn, NTE 3000 mg/dContin ue fall precaution s.Monitor for safety.F/U with ortho as planned. [id number] TATI CURRIE [address] [place] [address] [place] [address] 01/03/2024 13:24:31 01/05/2024 10:19:57 Chronic diastolic heart failure 646850357 I50.32 continue lasix 40 mg dailyconti nue potassium 20 meq daily Paroxysmal atrial fibrillation 342386282 I48.0 Cardizem 120 mg dailyconti nue eliquis 2.5 mg BID Type 2 tiara betes mellitus 23175278 E11.9 With some hypoglycem ia.continu e Humulin 70/30 20 units BID and SSI continued. continue fingerstic ks QID Essential hypertension 32272951 I10 BP goal for this elderly woman is permissive HTN, with SBP<150 and DBP<90Cont inue lasix 40 mg qd, hydralazin e 25 mg BID lasix 40 mg dailyMonit or BP and labs. Open wound of left lower leg 3611083166 1045898 S81.802A patient son reports that she gets wound care at [facility] and she suppose to have calcium alginate and zinc applied to and around left lower extremity wound. He wants this to continue until wound MD can eval.wound MD alarcon and treatwigeovanny ordered to cleanse wound with NS apply calcium alginate and zinc ben wound. [id number] TATI CURRIE [address] [address] 01/07/2024 14:10:11 01/10/2024 13:39:22 Open wound of left lower leg 2495310949 5207774 S81.802A patient son reports that she gets wound care at [facility] and she suppose to have calcium alginate and zinc applied to and around left lower extremity wound. He wants this to continue until wound MD can eval.wound MD alarcon and quinton ordered to cleanse wound with NS apply calcium alginate and zinc ben wound. Chronic di astolic heart failure 385713701 I50.32 continue lasix 40 mg dailyconti nue potassium 20 meq daily Paroxysmal atrial fibrillation 028841352 I48.0 Cardizem 120 mg dailyconti nue eliquis 2.5 mg BID Type 2 tiara betes mellitus 19760809 E11.9 With some hypoglycem ia.continu e Humulin 70/30 20 units BID and SSI continued. continue fingerstic ks QID Essential hypertension 83242595 I10 BP goal for this elderly woman is permissive HTN, with SBP<150 and DBP<90Cont inue lasix 40 mg qd, hydralazin e 25 mg BID lasix 40 mg dailyMonit or BP and labs. [id number] SHAE MOSELEY, PARLIAMENTARY COUNSEL [address] [address] 01/11/2024 10:33:27 01/13/2024 16:16:44 Open wound of left lower leg 3706160666 2963716 S81.802A patient son reports that she gets wound care at [facility] and she suppose to have calcium alginate and zinc applied to and around left lower extremity wound. He wants this to continue until wound MD latoya alarcon.wound MD alarcon and treatwigeovanny ordered to cleanse wound with NS apply calcium alginate and zinc ben wound. Chronic di astolic heart failure 727083459 I50.32 continue lasix 40 mg dailyconti nue potassium 20 meq daily Paroxysmal atrial fibrillation 807851467 I48.0 Cardizem 120 mg dailyconti nue eliquis 2.5 mg BID Type 2 tiara betes mellitus 10725215 E11.9 With some hypoglycem ia.continu e Humulin 70/30 20 units BID and SSI continued. continue fingerstic ks QID Essential hypertension 03073344 I10 BP goal for this elderly woman is permissive HTN, with SBP<150 and DBP<90Cont inue lasix 40 mg qd, hydralazin e 25 mg BID lasix 40 mg dailyMonit or BP and labs. Anemia 788111007 D64.89 H/H trending down this weekstarte d procrit 10/16 and scheduled for bi weeklyunsu re when she last receivedwi ll follow up with patient son. [id number] TATI CURRIE [address] [address] 01/13/2024 10:07:39 01/25/2024 10:52:36 Open wound of left lower leg 7000730813 5223627 S81.802A patient son reports that she gets wound care at [facility] and she suppose to have calcium alginate and zinc applied to and around left lower extremity wound. He wants this to continue until wound MD latoya alarcon.wound MD alarcon and quinton ordered to cleanse wound with NS apply calcium alginate and zinc ben wound. Chronic di astolic heart failure 684228936 I50.32 continue lasix 40 mg dailyconti nue potassium 20 meq daily Paroxysmal atrial fibrillation 436142122 I48.0 Cardizem 120 mg dailyconti nue eliquis 2.5 mg BID Type 2 tiara betes mellitus 88693070 E11.9 With some hypoglycem ia.continu e Humulin 70/30 20 units BID and SSI continued. continue fingerstic ks QID Essential hypertension 85162626 I10 BP goal for this elderly woman is permissive HTN, with SBP<150 and DBP<90Cont inue lasix 40 mg qd, hydralazin e 25 mg BID lasix 40 mg dailyMonit or BP and labs. Anemia 485916817 D64.89 HX of normochrom ic normocytic anemiaH/H trending down this week - tends to fluctuates tarted procrit 93999 10/16 and scheduled for bi weeklyRece ived doses on 10/27, 11/10, 11/24, 12/19 and 01/11/24 Bimalleola r fracture of ankle 346212050 S82.841A chronic with [place] arthropath y with deformity ankle and midfoothx of infection with osteomyeli tis August 2023follow ed by [facility]- last seen on 01/07/24- recommend 2 tx option 1.conserva tive treatment wit off loading as much as possible, wear heel protector boot.2. Surgical reconstruc tion [id number] TATI CURRIE [place] [address] [place] [address] 01/20/2024 09:44:29 01/25/2024 11:59:00 Open wound of left lower leg 1546828223 9175865 S81.802A continue calcium alginate and zinc left lower extremity woundwound MD alarcon and quinton ordered to cleanse wound with NS apply calcium alginate and zinc ben wound. Chronic di astolic heart failure 417488176 I50.32 stablecont inue lasix 40 mg dailyconti nue potassium 20 meq daily Paroxysmal atrial fibrillation 123884825 I48.0 HR 69Cardizem 120 mg dailyconti nue eliquis 2.5 mg BID Type 2 tiara betes mellitus 20464870 E11.9 With some hypoglycem ia.continu e Humulin 70/30 20 units BID and SSI continued. continue fingerstic ks QID Anemia 474528783 D64.89 HX of normochrom ic normocytic anemiaH/H trending down this week - tends to fluctuates tarted procrit 38250 10/16 and scheduled for bi weeklyRece ived doses on 10/27, 11/10, 11/24, 12/19 and 01/11/24 Bimalleola r fracture of ankle 016971752 S82.841A chronic with [place] arthropath y with deformity ankle and midfoothx of infection with osteomyeli tis August 2023follow ed by [facility]- last seen on 01/07/24- recommend 2 tx option 1.conserva tive treatment wit off loading as much as possible, wear heel protector boot.2. Surgical reconstruc tion [id number] [facility] [address] [place] [address] JACEY CRUMP [address] 01/25/2024 10:02:09 01/31/2024 15:51:53 Open wound of left lower leg 7342469253 [id number] S81.802A continue calcium alginate and zinc left lower extremity woundwound MD alarcon and henryll ordered to cleanse wound with NS apply calcium alginate and zinc ben wound. Chronic di astolic heart failure 572579664 I50.32 continue lasix 40 mg dailyconti nue potassium 20 meq daily Paroxysmal atrial fibrillation 103991958 I48.0 Cardizem 120 mg dailyconti nue eliquis 2.5 mg BID Type 2 tiara betes mellitus 68389602 E11.9 no recent hypoglycem ic events.con tinue Humulin 70/30 20 units BID and SSI continued. continue fingerstic ks QID Anemia 519224838 D64.89 recent labs stable,HX of normochrom ic normocytic anemiaH/H trending down this week - tends to fluctuates tarted procrit 84463 10/16 and scheduled for bi weeklyRece ived doses on 10/27, 11/10, 11/24, 12/19 and 01/11/24 Bimalleola r fracture of ankle [id number] S82.841A dressing intact, pain is controlled chronic with charcot arthropath y with deformity ankle and midfoothx of infection with osteomyeli tis August 2023follow ed by [facility]- last seen on 01/07/24- recommend 2 tx option 1.conserva tive treatment wit off loading as much as possible, wear heel protector boot.2. Surgical reconstruc tion [id number] TATI CURRIE [address] [facility] JACEY RCUMP [address] 01/28/2024 15:29:14 02/01/2024 08:26:24 Open wound of left lower leg [id number] S81.802A [facility] with NS apply calcium alginate and zinc ben wound.elev ate left foot/heel when sitting to keep DTI well perfused Chronic di astolic heart failure 974918538 I50.32 continue lasix 40 mg dailyconti nue potassium 20 meq daily Paroxysmal atrial fibrillation 207460882 I48.0 Cardizem 120 mg dailyconti nue eliquis 2.5 mg BID Type 2 tiara betes mellitus 80043413 E11.9 no recent hypoglycem ic events.con tinue Humulin 70/30 20 units BID and SSI continued. continue fingerstic ks QID Anemia 073800899 D64.89 recent labs stable,HX of normochrom ic normocytic anemiacont inue procrit 36710 10/16 and scheduled for bi weekly Bimalleola r fracture of ankle 059635415 S82.841A she gets wound care [facility] was seen on 01/23 and will f/u in 2 weeksconti nue with current dressing change. 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 Surgical reconstruc tion [id number] TATI CURRIE 36 [facility] JACEY CRUMP [address] 02/01/2024 10:24:39 02/04/2024 08:49:56 Open wound of left lower leg [id number] 2086171 S81.802A continue to cleanse wound with NS apply calcium alginate and zinc ben wound.elev ate left foot/heel when sitting to keep DTI well perfused Chronic di astolic heart failure 152123951 I50.32 continue lasix 40 mg dailyconti nue potassium 20 meq daily Paroxysmal atrial fibrillation 656006217 I48.0 Cardizem 120 mg dailyconti nue eliquis 2.5 mg BID Type 2 tiara betes mellitus 63331479 E11.9 no recent hypoglycem ic events.con tinue Humulin 70/30 20 units BID and SSI continued. continue fingerstic ks QID Anemia 568924820 D64.89 recent labs stable,HX of normochrom ic normocytic anemiacont inue procrit 88660 10/16 and scheduled for bi weekly Bimalleola r fracture of ankle 098630271 S82.841A She [facility] was seen on 01/23 and will f/u in 2 weeksconti nue with current dressing change. 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 Surgical reconstruc tion Chronic ki dney disease 594775110 N18.32 monitor labsavoid nephrotoxi c meds Essential hypertension 00354919 I10 blood pressure has been stable 120-130sBP goal for this elderly woman is permissive HTN, with SBP<150 and DBP<90Cont inue lasix 40 mg qd, hydralazin e 25 mg BID lasix 40 mg dailyMonit or BP and labs. Gout 33157260 M10.09 allopurino l 100 mg dailynot reported recent flare up. [id number] TATI CURRIE [address] [facility] [place] [address] 02/04/2024 09:44:41 02/07/2024 14:37:26 Open wound of left lower leg [id number] 2136910 S81.802A continue to cleanse wound with NS apply calcium alginate and zinc ben wound.elev ate left foot/heel when sitting to keep DTI well perfused Chronic di astolic heart failure 296371285 I50.32 euvolemicc ontinue lasix 40 mg dailyconti nue potassium 20 meq daily Paroxysmal atrial fibrillation 502152919 I48.0 Cardizem 120 mg dailyconti nue eliquis 2.5 mg BID Type 2 tiara betes mellitus 78349837 E11.9 BGLs mainly under 200's, a few noted in the 400s. patient and son are very particular about insulin dosing, so will not adjust.con tinue Humulin 70/30 20 units BID and SSI continued. 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 Surgical reconstruc tion Essential hypertension 37242375 I10 BP goal for this elderly woman is permissive HTN, with SBP<150 and DBP<90Cont inue lasix 40 mg qd, hydralazin e 25 mg BID lasix 40 mg dailyMonit or BP and labs. [id number] TATI CURRIE [address] [place] [address] 02/07/2024 11:53:48 02/09/2024 16:49:24 Open wound of left lower leg [id number] 0881788 S81.802A continue to cleanse wound with NS apply calcium alginate and zinc ben wound.elev ate left foot/heel when sitting to keep DTI well perfused Chronic di astolic heart failure 781553024 I50.32 continue lasix 40 mg dailyconti nue potassium 20 meq daily Paroxysmal atrial fibrillation 411297331 I48.0 Cardizem 120 mg dailyconti nue eliquis 2.5 mg BID Type 2 tiara betes mellitus 89754757 E11.9 continue Humulin 70/30 20 units BID and SSI continued. continue fingerstic ks QID Anemia 530729529 D64.89 continue procrit 31476 10/16 and scheduled for bi weekly Essential hypertension 64428259 I10 Continue lasix 40 mg qd, hydralazin e 25 mg BID lasix 40 mg dailyMonit or BP and labs. [id number] TATI CURRIE [address] [address] 02/10/2024 09:22:17 02/16/2024 10:42:27 Open wound of left lower leg [id number] 2150451 S81.802A continue to cleanse wound with NS apply calcium alginate and zinc ben wound. PCC updatedele vate left foot/heel when sitting to keep DTI well perfused Chronic di astolic heart failure 587251608 I50.32 continue lasix 40 mg dailyconti nue potassium 20 meq daily Paroxysmal atrial fibrillation 705443508 I48.0 Cardizem 120 mg dailyconti nue eliquis 2.5 mg BID Type 2 tiara betes mellitus 46840494 E11.9 continue Humulin 70/30 20 units BID and SSI continued. continue fingerstic ks QIDno reported hypo/hyper glycemic events. Essential hypertension 50710580 I10 Continue lasix 40 mg qd, hydralazin e 25 mg BID lasix 40 mg dailyMonit or BP and labs. [id number] Janee Davis MD [address] [address] 02/14/2024 21:04:27 03/14/2024 07:28:32 Chronic diastolic heart failure 735017010 I50.32 Appears euvolemic. Continue lasix 40 mg qd and KCl 20 meq qd to prevent hypokalemi a.Monitor resp. status, fluid status, wts and labs. Paroxysmal atrial fibrillation 418017577 I48.0 Rate in good control on meds as above.Cont inue eliquis 2.5 mg BID for AC.Monitor HR and bleeding risk. Type 2 tiara betes mellitus 89894125 E11.9 In adequate control.Co ntinue Humulin 70/30 20U BID and SSIContinu e fingerstic ks QID Essential hypertension 36774099 I10 In good control.Co ntinue lasix 40 mg qd, hydralazin e 25 mg BID, diltiazem 120 mg qd, and lasix 40 mg qdMonitor BP and labs. 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 Essential hypertension 48890740 I10 Continue lasix 40 mg qd, hydralazin e 25 mg BID lasix 40 mg dailyMonit or BP and labs. Chronic di astolic heart failure 284019601 I50.32 continue lasix 40 mg dailyconti nue potassium 20 meq daily Paroxysmal atrial fibrillation 711496877 I48.0 Cardizem 120 mg dailyconti nue eliquis 2.5 mg BID Type 2 tiara betes mellitus 48458424 E11.9 continue Humulin 70/30 20 units BID and SSI continued. continue fingerstic ks QIDno reported hypo/hyper glycemic events. Chronic ki dney disease 021102621 N18.32 Back to baseline.C ontinue to avoid nephrotoxi c meds as able.Monit or labs.Renal consult prn. Closed bim alleolar fracture of right ankle 2964064157 4782977 S82.841D Continue APAP 1000 mg q 4 hrs prn, NTE 3000 mg/dContin ue fall precaution s.Monitor for safety.F/U with ortho Gastroesop hageal reflux disease without esophagitis 246345344 K21.9 Continue omeprazole 20 mg qd Gout 88615446 M10.09 Continue allopurino l 100 mg qdMonitor for flare. Hyperlipidemia 10267440 E78.49 Continue fenofibrat e 160 mg qdMonitor as outpt. Hypothyroidism 56899778 E03.8 not on medsTSH WNL inpt.Monit or as outpt Hypomagnesemia 059101864 E83.42 Continue Mg+ 400 mg BID.Monito r levels Vitamin D deficiency 347 72187 E56.8 ergocalcif denisse 50,000 IU qdMonitor levels Anemia 944487651 D64.89 Multifacto rial.justo nue procrit 54279 bi weekly Health Concerns Section Related Observation LastModified by Organization Detai ls LastModified Time None Recorded Concern Status LastModified by Organization Details LastModified Time None Recorded Advance Directives Directive Y: Payers Encounter Date Sequence Insurance Name Policy Number Policy Bravo Covered Member ID Bravo Member ID Guarantor Name 02/04/2024 1 [place] [employer] Susan Douglass Piecuch [id number] 2 Susan Piecuch 02/04/2024 2 [place] [id number] Susan Piecuch [id number] Susan Piecuch 02/07/2024 1 [place] [employer] [place] Susan Douglass Piecuch [id number] Susan Piecuch 02/07/2024 2 [place] [id number] Susan Piecuch [id number] Susan Piecuch 02/10/2024 1 [place] [employer] Susan M Piecuch [id number] 2 Susan Piecuch 02/10/2024 2 [place] [id number] Susan Piecuch [id number] Susan Piecuch 02/14/2024 1 [place] [employer] Susan Douglass Piecuch [id number] 2 Susan Piecuch 02/14/2024 2 [place] [id number] Susan Piecuch [id number] Susan Piecuch 02/18/2024 1 [place] [employer] [place] Susan M Piecuch [id number] 2 Susan Piecuch 02/18/2024 2 [place] [id number] Susan Piecuch [id number] Susan Piecuch Notes Date Note Type [...] broke her right ankle, most recently [place] [facility] [place].She initially presented to the [facility] ED on 11/26 after an unknown injury. Found to have an Acute displaced bimalleolar fracture with ankle mortise disruption. Complicated by chronic pain from right foot Charcot arthropathy. She was splinted and instructed in strict NWB status and d/c to [facility]. Of note she had just been dxed with new onset Afib on 11/24 and started on diltiazem and apixaban.Returned to [facility] on 12/13, several days after d/c from [facility], because of difficulty ambulating at home and unable to help her due to his own issues. D/C on 12/15 to [facility].Was sent to the [facility] on 12/17 because of SOB and [...] no acute nursing concerns. TATI CURRIE [address] [facility], [address], [place], [address], [facility] 02/04/2024 11:01:05 02/07/2024 text/html This is an 88 yo woman seen today for acute rounding visit. 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 Patient has been in and out of rehabs and hosp since 11/26 when she broke her right ankle, most recently at [facility] [place] CHF exacerbation.She initially presented to the [facility] on 11/26 after an unknown injury. Found to have an Acute displaced bimalleolar fracture with ankle mortise disruption. Complicated by chronic pain from right foot Charcot arthropathy. She was splinted and instructed in strict NWB status and d/c to [facility]. Of note she had just been dxed with new onset Afib on 11/24 and started on diltiazem and apixaban.Returned to [facility] on 12/13, several days after d/c from [facility], because of difficulty ambulating at home and unable to help her due to his own issues. D/C on 12/15 to [facility].Was sent to the [facility] on 12/17 because of SOB and AMS.Labs and vitals were WNL (except Na+147 and BNP 222) CXR showed pulmonary edema with small pleural effusions. Neg for RSV/influenza and covid.EKG showed NSR and she was continued on diltiazem and apixaban.She was txed with IV lasix and K+A left dhillon wound was followed by wound care. TATI CURRIE [address] [facility], [address], [place], [address], [facility] 02/07/2024 14:37:38 02/10/2024 text/html This is an [...] and s/p MSSA sepsis. TATI CURRIE [address] [facility], [address], [place], [address], [facility] 02/10/2024 12:44:47 02/14/2024 text/html I am seeing this 88 yo woman for an acute visit today to f/u on RLE fx, ulcers and NWB status.Son has had concerns about mother refusing wound care and this is being addressed by nursing staff.She was seen at the [facility] [place] clinic on 02/06 and it was [...] and s/p MSSA sepsis. Janee Davis MD [address] [facility], [address], [place], [address], [employer] [facility] [employer] [facility] 03/11/2024 19:10:29 02/18/2024 text/html This is an 88 yo woman due for discharge today. Patient has been in and out of rehabs and hosp since 11/26 when she broke her right ankle, most recently at [facility] [place] CHF exacerbation.She initially presented to the [facility] on 11/26 after an unknown injury. Found to have a right Acute displaced bimalleolar fracture with ankle mortise disruption. Complicated by chronic pain from right foot Charcot arthropathy. She was splinted and instructed in strict NWB status and d/c to [facility]. Of note she had just been dxed with new onset Afib on 11/24 and started on diltiazem and apixaban.Returned to [facility] on 12/13, several days after d/c from [facility], because of difficulty ambulating at home and unable to help her due to his own issues. D/C on 12/15 to [facility].Was sent to the [facility] ED on 12/17 because of SOB and AMS.Labs and vitals were WNL (except Na+147 and BNP 222) CXR showed pulmonary edema with small pleural effusions. Neg for RSV/influenza and covid.EKG showed NSR and she was continued on diltiazem and apixaban.She was txed with IV lasix and K+A left dhillon wound was followed by wound care.She was transferred to [facility] on [facility] was done on 12/23 [...] and s/p MSSA sepsis. TATI CURRIE [address] [facility], [address], [place], [address], [facility] 02/18/2024 14:26:35 OBGyn Episode No OBEpisode recorded.
--- OUTSIDE RECORDS SUMMARY | 2024-12-20 12:38 | XMS_ITS | Clinical Summary ---
Author Organization [employer] Address [address] [place] [address] 7[address] [place] [address] Care Team Providers Care Sales Support Engineer Name Role Phone Unavailable Primary Care Provider [...]
--- OUTSIDE RECORDS SUMMARY | 2024-12-20 12:39 | XMS_ITS | Clinical Summary ---
Author Organization 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 History of malignant basal cell neoplasm of skin 01/27/2019 Overview (09/16/2022): lip Encounters Date Type Department Care Team Description 2024 Office Communication [facility] [address] [address] Neo Rollins MD 09/28/2024 Telephone [facility] [address] [address] Concepción Ibrahim 09/26/2024 2:00 PM EST Office Visit [facility] [address] [address] Neo Rollins MD Chronic kidney [...] Office Visit [facility] [address] [phone] Neo Rollins MD [address] [facility] [address] [place] [address] Health Maintenance Due Date Last Done Comments [...] average glucose, using the formula of the B6H-Spjeyrr Average Glucose study (ADAG), Diabetes Care, Vol.31,#8, Mar. 2007 04/18/2019 10:3 4 AM EDT Christopher Zamudio MD LAB BLOOD ORDERABLES Final Resu lt [place] from Last 3 Months or Most Recently Relevant to Health Maintenance Insurance [facility] Medicare Medicaid [place] Medicare [facility] [place] Care Teams Image Consultant Relationship Specialty Start Date End Date Christopher Zamudio MD [address] [place], [place] PCP - General 09/02/20
--- OUTSIDE RECORDS SUMMARY | 2024-12-20 12:39 | XMS_ITS ---
Author Organization [facility] [place] Care Team Providers Care Ticket Agent Name Role Phone Elaina Stanley Unavailable Unavailable Allergies and adverse reactions Code CodeSystem Substance Reaction Severity StartDate Concern Status 2670 RXNORM Codeine Unknown 12/16/2023 active Care Team Name Role Address Phone Organization Dates Elaina Stanley Attending Physician [address] [facility] [address], [place], [address], [place] (Office): : : [facility] [place] 12/16/2023 - 12/19/2023 Immunizations Immunization Status Vaccine Details Vaccine Code CodeSystem Garrett e Notes TB 1 Step Mantoux (PPD) completed tuberculin skin test; purified protein derivative solution, intradermal lotNumber: [id number] expiry: 10/21/2024 Mfg: PAR Given 0.1 ml Right Forearm intradermally 96 CVX created date: 12/17/2023 consent date: 12/16/2023 administere d date: 12/17/2023 TB 2 Step Mantoux Skin Test new tuberculin skin test; purified protein derivative solution, intradermal 96 CVX created date: 12/17/2023 consent date: 12/16/2023 Mental Status Section Date Assessment Total Score Description 12/18/2023 CAM 0 No delirium ind icated 12/18/2023 BIMS 13 cognitively int act CAM 0 No delirium ind icated PHQ-9 00 Problems Problem # Description Date of onset Resolved Date Code CodeSystem Concern Status 1 UNSTEADINESS ON FEET 12/17/[address] active 2 DISPLACED BIMALLEOLAR FRACTURE OF RIGHT LOWER LEG, SUBSEQUENT ENCOUNTER FOR CLOSED FRACTURE WITH ROUTINE HEALING 12/16/[address] active 3 ESSENTIAL (PRIMARY) HYPERTENSION 12/16/[address] active 4 GOUT, UNSPECIFIED 12/16/[address] active 5 HYPERLIPIDEMIA, UNSPECIFIED 12/16/[address] active 6 PAROXYSMAL ATRIAL FIBRILLATION 12/16/[address] active 7 TYPE 2 DIABETES MELLITUS WITHOUT COMPLICATIONS 12/16/[address] active 8 UNSPECIFIED FALL, SUBSEQUENT ENCOUNTER 12/16/[address] active Reason for Referral No Reasons for Referral Entered Social History Social History Observation Description Start Date End Date Code Code System Current Smoking Status Tobacco smoking consumption unknown 222602928 SNOMED CT Sex Assigned At Female 1935 97508-9 [facility] Vital Signs Code Code System Vitals Name Values and Units Timing Information 8310-5 [facility] Body Temperature Value=97.6 Units=?? F 12/21/2023 9279-1 [facility] Respiratory Rate Value=19.0 Units=/m in 12/18/2023 8462-4 [facility] Blood Pressure-Diastolic Value=63 Un its=mmHg 12/18/2023 8480-6 LOINC Blood Pressure-Systolic Xrywf=958 Un its=mmHg 12/18/2023 8867-4 [facility] Heart rate Value=74.0 Units=/min 98680-6 INC Pain Level Value=0.0 12/18/2023 2339-0 [facility] Blood Sugar Ldoiz=110.0 Units=mg/dL 12/18/2023 16322-0 [facility] O2 % dC Oximetry Value=95.0 Units= % 12/18/2023 36953-8 LOINC Weight Ogcaq=051.0 Units=Lbs 8302-2 LOINC Height Value=65.0 Units=Inches 12/16/2023
--- OUTSIDE RECORDS SUMMARY | 2024-12-20 12:39 | XMS_ITS | Clinical Summary ---
Author Organization [facility] Address [address] [place] [address] Care Team Providers Care Engineer Second Assistant Name Role Phone Christopher Zamudio MD Primary Care Provider [phone] Surgical History Surgery Date Site/Laterality Comments CHOLECYSTECTOMY PROCEDURE: HISTORICAL CHOLECYSTECTOMY; COMMENT: 1981 LEG SURGERY 1985 PROCEDURE: HISTORICAL LEG SURGERY; COMMENT: Vein ablation APPENDECTOMY PROCEDURE: HISTORICAL APPENDECTOMY; COMMENT: 1981 OTHER SURGICAL HISTORY 08/18/2023 Right PROCEDURE: MI INCISION BONE CORTEX FOOT; COMMENT: right, 5th metatarsal OTHER SURGICAL HISTORY 08/18/2023 Right PROCEDURE: MI BIOPSY BONE OPEN SUPERFICIAL; COMMENT: right, 5th proximal phalanx OTHER SURGICAL HISTORY 08/18/2023 Right PROCEDURE: MI SECONDARY CLOSURE SURG WOUND/DEHSN XTNSV/COMP Medical History [...] (HCC); COMMENT: [facility]en at [facility]. 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
== END 2024-12-20 11:04 | disposition home or self-care (01) ==
LOC: HO.LAB 11:03
PROVIDERS: Visit Provider Internal Medicine Medical Oncology
DX: D64.9 Anemia, unspecified (principal); N18.4 Chronic kidney disease, stage 4 (severe)
CPT/HCPCS: 36415; 85025

== ENCOUNTER 2025-01-03 11:26 | Outpatient (REF) | payer MEDICARE, SELFPAY ==
[2025-01-03 11:45] LABS: MANUAL DIFF FLAG NO
[2025-01-03 11:47] LABS: Basophils Percent Auto 0.3 % (0-2); Eosinophils Absolute Auto 0.2 X10*3/uL (0.0-0.4); Eosinophils Percent Auto 2.4 % (0-4); Hematocrit 34.1 % (37.0-47.0); Hemoglobin 10.8 g/dl (12.0-16.0); Imm Gran Abs Auto 0.03 X10*3/uL (0.00-0.03); Imm Gran Pct Auto 0.4 % (0.0-0.4); Lymphocytes Absolute Auto 1.4 X10*3/uL (1.2-4.9); Lymphocytes Percent Auto 19.4 % (20-40); Mean Corpuscular HGB Conc 31.7 g/dl (31.0-35.0); Mean Corpuscular Hemoglobin 26.6 pg (27.0-33.0); Mean Platelet Volume 11.8 fL (9.4-12.3); Monocytes Absolute Auto 0.5 X10*3/uL (0.1-1.2); Monocytes Percent Auto 6.6 % (2-11); Neutrophils Percent Auto 70.9 % (45-73); Platelet Count 230 X10*3/uL (160-400); Red Blood Count 4.06 X10*6/uL (4.20-5.50); Red Cell Distribution Width 18.6 % (11.0-16.0)
--- OUTSIDE RECORDS SUMMARY | 2025-01-03 12:25 | XMS_ITS | Clinical Summary ---
Author Organization [employer] Address [address] [facility] 7t [place] [address] Care Team Providers Care Quality Control Microbiologist Name Role Phone Unavailable Primary Care Provider [...]
--- OUTSIDE RECORDS SUMMARY | 2025-01-03 12:25 | XMS_ITS | Data Portability ---
Author Organization [facility], Main Office Address [address] [place] [address] Care Team Providers Care Director Of Litigation Name Role Phone TISHA MANZO Primary Care [...] Address Organization Details Recorded Time Bacteremi a 1029033 Active 2022 MSSA foot infection Not Available [facility] 4 02:47:47 Type 2 diabetes mellitus 63635109 Active 2022 Not Available [facility] 4 02:47:47 Hypothyro idism 19182949 Active 2022 Not Available [facility] 4 02:47:47 Chronic kidney disease 125874599 Active 2022 Not Available [facility] 4 02:47:47 Gout 39157512 Active 2022 Not Available [facility] 4 02:47:47 Gastroeso phageal reflux disease without esophagit is 426809218 Active 2022 Not Available [facility] 4 02:47:47 Hyperlipi demia 02019087 Active 2022 Not Available [facility] 4 02:47:47 Essential hypertens ion 65356833 Active 2022 Not Available [facility] 4 02:47:47 Hypomagne semia 950304871 Active 2023 Not Available [facility] 4 02:47:47 Vitamin D deficienc y 69263590 Active 2023 Not Available [facility] 4 02:47:47 Chronic diastolic heart failure 534567800 Active 2023 Janee Davis MD [address] [facility], [facility] [address], [place], [address] , [facility] 4 10:48:17 Anemia 120089834 Active 2023 Janee Davis MD [address] [facility], [address], [place], [address] , [facility] 4 11:10:38 Bimalleol ar fracture of ankle 017444719 Active 2023 TATI CURRIE [address] [facility], [address], [place], [address] , [facility] 4 14:06:55 Stasis dermatiti s and 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 Please review this document and add these problems to the patient's chart manually as needed. Problem Notes None recorded. Medical Equipment None Reported. Allergies Allergen ID Allergen Name Allergen Category Reaction Reaction Severity Criticality Documentation Date Start Date Code Code System Note Provider Name and Address Organization Details Recorded Time 91672 codeine medicatio n Not available Not available Not available 08/20/2023 2670 RxNorm ALVARADO DEL CID NP [address] [facility], [address], [place], [address], [facility] 3 10:53:18 Vitals Date Recorded Body height Heart rate Respiratory rate Body temperature Systolic blood pressure Diastolic blood pressure Provider Name and Address Organization Details Last Updated DateTime 4 170.18 cm 80 /min 16 /min 98 [degF] 129 mm[Hg] 78 mm[Hg] TATI CURRIE [address] [facility], [address], [place], [address], [facility] 4 10:52:49 Date Recorded Body height Body temperature Respiratory rate Heart rate Systolic blood pressure Diastolic blood pressure Provider Name and Address Organization Details Last Updated DateTime 4 170.18 cm 97.3 [degF] 18 /min 68 /min 122 mm[Hg] 68 mm[Hg] TATI CURRIE [address] [facility], [address], [place], [address], [facility] 4 14:33:03 Date Recorded Body height Heart rate Respiratory rate Body temperature Systolic blood pressure Diastolic blood pressure Provider Name and Address Organization Details Last Updated DateTime 4 170.18 cm 74 /min 18 /min 98 [degF] 132 mm[Hg] 74 mm[Hg] TATI CURRIE [address] [facility], [address], [place], [address], [facility] 4 12:19:44 Date Recorded Body height Body mass index (BMI) Body weight Heart rate Respiratory rate Body temperature Oxygen saturation Oxygen saturation in Arterial blood by Pulse oximetry Systolic blood pressure Diastolic blood pressure Provider Name and Address Organization Details Last Updated DateTime 4 170.18 cm 31.6 kg/m2 64232.6 6 g 79 /min 18 /min 97.4 [degF] 100 % 100 % 141 mm[Hg] 75 mm[Hg] Janee Davis MD [address] [facility], [address], [place], [address], [facility] 4 21:07:19 Date Recorded Body height Heart rate Respiratory rate Body temperature Oxygen saturation Oxygen saturation in Arterial blood by Pulse oximetry Systolic blood pressure Diastolic blood pressure Provider Name and Address Organization Details Last Updated DateTime 4 170.18 cm 79 /min 18 /min 98 [degF] 100 % 100 % 141 mm[Hg] 75 mm[Hg] TATI CURRIE [address] [facility], [address], [place], [address], [facility] 4 14:26:02 Social History Question Answer Notes LastModified by [employer] Details LastModified Time Tobacco Smoking Status Never Smoker ALVARADO DEL CID NP [address] [facility], [address], [place], [address], [facility] 08/20/2023 11:16:58 Do You Have An Advance Directive? Yes Information not available 08/20/2023 What Is Your Code Status? Full Code Information not available 08/20/2023 Where Do You Live? SingleLevelHouse Lives With Son, 3-4 Steps To Enter Information not available 08/24/2023 Legal Guardian? No Informati on not available 08/24/2023 Do You Have A Medical Power Of Mica Paster? Yes Information not available 08/24/2023 What Was The Date Of Your Most Recent Tobacco Screening? 08/24/2023 Information not available 08/24/2023 Do You Have An Out Of Hospital DNR? No Information not available 08/24/2023 What Is Your Relationship Status? ~ 2011 Information not available 08/24/2023 Has Tobacco Cessation Counseling Been Provided? No N/a As Pt Is A Non-smoker Information not available 08/24/2023 Sex: Unknown Functional Status Question Answer Note LastModified by [employer] Details LastModified Time Do you use any illicit or recreational drugs? No Information not available 08/20/2023 Do you or have you ever used any other forms of tobacco or nicotine? No Information not available 08/24/2023 What is your level of alcohol consumption? None Information not available 08/20/2023 Mental Status None recorded. Family History Nothing Reported Notes:n/c Medical History No medical history recorded. Gynecological HistoryNo gynecological history recorded. Obstetrics History GPAL:G 0 P 0 0 0 0 Immunizations Vaccine Type Date Status Note Provider Nam e and Address Organization Details Recorded Time Influenza, adjuvanted, quadrivalent, PF 3 completed Not Available [facility] 09/30/2023 02:47:47 Td(adult) unspecified formulation 1 completed [facility] 12/28/2023 16:20:20 SARS-COV-2 (COVID-19) vaccine, UNSPECIFIED 1 completed [facility] 12/28/2023 16:20:43 SARS-COV-2 (COVID-19) vaccine, UNSPECIFIED 1 completed [facility] 12/28/2023 16:20:50 pneumococcal polysaccharide PPV23 1 completed [facility] 12/28/2023 16:21:57 SARS-COV-2 (COVID-19) vaccine, UNSPECIFIED 1 completed [facility] 12/28/2023 16:22:45 Past Encounters Encounter ID Performer Location Encounter Start Date Encounter Closed Date Diagnosis/Indication Diagnosis SNOMED-CT Code Diagnosis ICD10 Code Diagnosis Note [id number] SCOTT NOBLES [place] [address] [place] [address] [place] [address] 08/20/2023 09:52:59 08/31/2023 13:27:41 Bacteremia 3002059 R78.81 flush picc qshiftcefa zolin 1 gm bid to 2/2followu p with vascular as planned Type 2 tiara betes mellitus 24884561 E11.9 humulin/re g 70/30 50 units bidmonitor glucose Chronic ki dney disease 456588301 N18.9 monitor labsavoid nephrotoxi c meds Gastroesop hageal reflux disease without esophagitis 807291415 K21.9 mag ox 400 mg daily to 08/30omepraz ole 20 mg daily Gout 08275084 M10.9 allopurino l 100 mg dailyD3 1250 b50ucqy Hyperlipidemia 13651651 E78.5 fenofibrat e 160 mg daily Hypothyroidism 87934777 E03.9 hx of Essential hypertension 32890058 I10 lasix 20 mg dailyhydra lazine 25 mg bidtoprol 25 mg dailymonit or bplisinopr il stopped in hospital [id number] ALVARADO DEL CID NP [address] [place] [address] 08/24/2023 13:44:02 08/25/2023 03:52:21 Type 2 diabetes mellitus 44201567 E11.9 humulin/re g 70/30 50 units bidmonitor glucose Bacteremia 3763310 R78.8 1 flush picc qshiftcefa zolin 1 gm bid to 2/2followu p with vascular as planned [id number] Janee Davis MD [address] [place] [address] 08/24/2023 15:18:19 08/31/2023 14:10:55 Type 2 diabetes mellitus 93878526 E11.9 With some hypoglycem ia.Humulin 70/30 was lowered from 50 units BID to 25U BID and SSI continued. Monitor fingerstic ks, will change from TID to qid, with low dose SS at hs.HgA1C was 6.7 inpt. Bacteremia 1867538 R78.8 1 As above Osteomyeli tis of right foot 0732506569 045426 M86.271 S/P I&D and debridemen t. Vasc. surgeon (Dr. Friedman) felt that all diseased bone was removed.Co ntinue cefazolin 1 gm IV BID until 22 to complete 6 wk course.Con tinue wound care as ordered.F/ U with Dr. Friedman as planned. Chronic ki dney disease 815927026 N18.32 Back to baseline.C ontinue to avoid nephrotoxi c meds as able.Monit or labs.Renal consult prn. Gastroesop hageal reflux disease without esophagitis 046164336 K21.9 No current sxs.Contin ue omeprazole 20 mg qdMonitor sxs. Gout 50449900 M10.09 No current sxs.Contin ue allopurino l 100 mg qdMonitor for flare. Hyperlipidemia 18537233 E78.49 Continue fenofibrat e 160 mg qdMonitor as outpt. Hypothyroidism 66883812 E03.8 In hx.TSH WNL in 11/2022Moni tor as outpt Essential hypertension 44916281 I10 BP borderline at times, but acceptable for age.BP goal for this elderly woman is permissive HTN, with SBP<150 and DBP<90Cont inue lasix 20 mg qd, hydralazin e 25 mg BID and metoprolol 25 mg qd.Monitor BP and labs.No need to restart lisinopril at this time Hypomagnesemia 252917085 E83.42 Continue Mg+ 400 mg qd until 08/30, then recheck level Vitamin D deficiency 347 32190 E55.9 Continue ergocalcif denisse 50,000 IU every 14 days.Monit or levels [id number] TATI CURRIE [facility] [address] [place] [address] 08/31/2023 11:38:57 09/08/2023 12:37:11 Bacteremia 0626062 R78.81 continuece fazolin 1 gm bid to 2/2follow up with vascular Type 2 tiara betes mellitus 77577270 E11.9 200-280's mainlyhumu mahesh/reg 70/30 50 units bidmonitor glucose Chronic ki dney disease 021957709 N18.9 monitor labsavoid nephrotoxi c meds Gastroesop hageal reflux disease without esophagitis 909152191 K21.9 mag ox 400 mg daily to 08/30omepraz ole 20 mg daily Gout 28382039 M10.9 allopurino l 100 mg dailyD3 1250 a89xaqr Hyperlipidemia 26422585 E78.5 fenofibrat e 160 mg daily Hypothyroidism 33680319 E03.9 hx of Essential hypertension 06513781 I10 lasix 20 mg dailyhydra lazine 25 mg bidtoprol 25 mg dailymonit or bplisinopr il stopped in hospital [id number] TATI CURRIE [address] [address] 09/02/2023 09:40:27 09/08/2023 13:38:51 Bacteremia 6432065 R78.81 continueMS SA right footcefazo mahesh 1 gm bid to 2/ollow up with vascular Type 2 tiara betes mellitus 76010903 E11.9 200-280's mainlychan ged back to humulin/re g 70/30 50 units bidmonitor glucose Osteomyeli tis of right foot 8982120238 553048 M86.271 S/P I&D and debridemen t. Vasc. surgeon (Dr. Friedman) felt that all diseased bone was removed.Co ntinue cefazolin 1 gm IV BID until 09/24 to complete 6 wk course.Con tinue wound care as ordered.F/ U with Dr. Friedman as planned. Edema of l ower extremity 956248294 R60.0 chronic BLEright greater than left [id number] TATI CURRIE [address] [address] 09/07/2023 13:02:41 09/13/2023 15:17:43 Bacteremia 2061755 R78.81 continueMS SA right footcefazo mahesh 1 gm bid to ollow up with vascular Type 2 tiara betes mellitus 23954843 E11.9 lispro SSChumulin /reg 70/30 50 units bidmonitor glucose Osteomyeli tis of right foot 5509923991 106171 M86.271 S/P I&D and debridemen t. Vasc. surgeon (Dr. Friedman) felt that all diseased bone was removed.Co ntinue cefazolin 1 gm IV BID until 09/24 to complete 6 wk course.Con tinue wound care as ordered.F/ U with Dr. Friedman as planned. Edema of l ower extremity 178373671 R60.0 chronic BLEright greater than left [id number] TATI CURRIE [address] [address] 09/10/2023 06:52:27 09/15/2023 13:31:46 Bacteremia 1576456 R78.81 continueMS SA right footcefazo mahesh 1 gm bid to ollow up with vascular Type 2 tiara betes mellitus 44394928 E11.9 I spoke with patient today. previously [...] bidmonitor glucose Osteomyeli tis of right foot 0147453322 229917 M86.271 S/P I&D and debridemen t. Vasc. surgeon (Dr. Friedman) felt that all diseased bone was removed.Co ntinue cefazolin 1 gm IV BID until 2/2 to complete 6 wk course.Con tinue wound care as ordered.F/ U with Dr. Friedman as planned. Edema of l ower extremity 922456835 R60.0 chronic BLEright greater than left [id number] TATI CURRIE [address] [address] 09/14/2023 07:53:08 09/17/2023 08:57:48 Bacteremia 1563997 R78.81 continueMS SA right footcefazo mahesh 1 gm bid to 2/2follow up with vascular Type 2 tiara betes mellitus 37182745 E11.9 I spoke with patient today. previously [...] bidmonitor glucose Osteomyeli tis of right foot 2048338924 438835 M86.271 S/P I&D and debridemen t. Vasc. surgeon (Dr. Friedman) felt that all diseased bone was removed.Co ntinue cefazolin 1 gm IV BID until 2/2 to complete 6 wk course.Con tinue wound care as ordered.F/ U with Dr. Friedman as planned. Edema of l ower extremity 080570825 R60.0 chronic BLEright greater than left [id number] TATI CURRIE [address] [place] [address] 09/17/2023 08:23:28 09/22/2023 11:50:26 Bacteremia 2649446 R78.81 continueAK SA right footcefazo mahesh 1 gm bid to 2/2follow up with vascular Type 2 tiara betes mellitus 21951270 E11.9 lispro SSChumulin /reg 70/30 30 units bidmonitor glucose Osteomyeli tis of right foot 7684857582 735211 M86.271 S/P I&D and debridemen t. Vasc. surgeon (Dr. Friedman) felt that all diseased bone was removed.Co ntinue cefazolin 1 gm IV BID until 09/24 to complete 6 wk course.Con tinue wound care as ordered.F/ U with Dr. Friedman as planned. Edema of l ower extremity 453850581 R60.0 chronic BLEright greater than left [id number] TATI CURRIE [address] [address] 09/21/2023 07:59:18 09/29/2023 08:59:51 Bacteremia 4178067 R78.81 continueAK SA right footcefazo mahesh 1 gm bid to 2/2follow up with vascular Type 2 tiara betes mellitus 65240837 E11.9 lispro SSChumulin /reg 70/30 30 units bidmonitor glucose Osteomyeli tis of right foot 8989663832 306962 M86.271 S/P I&D and debridemen t. Vasc. surgeon (Dr. Friedman) felt that all diseased bone was removed.Co ntinue cefazolin 1 gm IV BID until 09/24 to complete 6 wk course.Con tinue wound care as ordered.F/ U with Dr. Friedman as planned. Edema of l ower extremity 111224699 R60.0 chronic BLEright greater than left [id number] TATI CURRIE [address] [address] 09/24/2023 12:21:41 09/29/2023 13:31:08 Bacteremia 6053053 R78.81 resolved Type 2 tiara betes mellitus 78456214 E11.9 humulin/re g 70/30 50 units bid Chronic ki dney disease 772985237 N18.9 monitor labsavoid nephrotoxi c meds Gastroesop hageal reflux disease without esophagitis 997677282 K21.9 mag ox 400 mg daily to 08/30omepraz ole 20 mg daily Gout 84652498 M10.9 allopurino l 100 mg dailyD3 1250 k66woin Hyperlipidemia 86365197 E78.5 fenofibrat e 160 mg daily Hypothyroidism 34121792 E03.9 TSH WNL in 11/2022Moni tor as outptcurre ntly not on medication . Essential hypertension 58537207 I10 lasix 20 mg dailyhydra lazine 25 mg bidtoprol 25 mg daily Osteomyeli tis of right foot 2463580685 931448 M86.271 S/P I&D and debridemen t. Vasc. surgeon (Dr. Friedman) felt that all diseased bone was removed.co mpleted IV cefazolin 1 gm IV BID 09/24/23Cont inue wound care as ordered.F/ U with Dr. Friedman as planned. Hypomagnesemia 122796458 E83.42 monitor outpt labs Vitamin D deficiency 347 07069 E55.9 Continue ergocalcif denisse 50,000 IU every 14 days.Monit or levels [id number] Janee Davis MD [address] [place] [address] 12/28/2023 15:33:48 01/13/2024 12:52:53 Chronic diastolic heart failure 880679581 I50.32 Appears euvolemic. Continue furosemide 40 mg qd and hydralazin e 25 mg BID.Monito r resp. status, fluid status, wts and labs. Paroxysmal atrial fibrillation 721857045 I48.0 Rate in good control on diltiazem 120 mg qd.Continu e eliquis 5 mg BID for AC.Monitor HR and bleeding risk. Type 2 tiara betes mellitus 05270643 E11.9 This AM FBS was 88. Last time she was here fastings tended to be ok, but with high sugars later in the day.HgA1C was 7.1 this AMContinue Humulin 70/30 20U BID and SSI.Monito r fingerstic ks TID Chronic ki dney disease 277996414 N18.32 Back to baseline.C ontinue to avoid nephrotoxi c meds as able.Monit or labs.Renal consult prn. Essential hypertension 23593986 I10 BP borderline at times, but acceptable for age.BP goal for this elderly woman is permissive HTN, with SBP<150 and DBP<90Cont inue meds as above.Rebeca tor BP and labs. Gastroesop hageal reflux disease without esophagitis 652897254 K21.9 No current sxs.Contin ue omeprazole 20 mg qdMonitor sxs. Gout 77435040 M10.09 No current sxs.Contin ue allopurino l 100 mg qdMonitor for flare. Hyperlipidemia 55498734 E78.49 Continue fenofibrat e 160 mg qdMonitor as outpt. Hypothyroidism 40916358 E03.8 In hx.TSH WNL inpt.Monit or as outpt Hypomagnesemia 755861151 E83.42 Continue Mg+ 400 mg BID.Monito r levels Vitamin D deficiency 347 56266 E56.8 Vit D supplement is ordered as cholecalci ferol 5000 IU every 14 days.Is supposed to be ergocalcif denisse 50,000 IU qd, will change.Mon itor levels Anemia 795677534 D64.89 Multifacto rial.Follo ws with Dr. White and gets procrit every few wks (has been irregular due to hospitaliz ations).Mo nitor labs Closed bim alleolar fracture of right ankle 4844450589 2057812 S82.841D Four wks from original injury.Con tinue PT/OT for strengthen ing, balance, gait training, safety and function.C ontinue APAP 1000 mg q 4 hrs prn, NTE 3000 mg/dContin ue fall precaution s.Monitor for safety.F/U with ortho as planned. [id number] TATI CURRIE [address] [place] [address] 01/03/2024 13:24:31 01/05/2024 10:19:57 Chronic diastolic heart failure 227890525 I50.32 continue lasix 40 mg dailyconti nue potassium 20 meq daily Paroxysmal atrial fibrillation 895780267 I48.0 Cardizem 120 mg dailyconti nue eliquis 2.5 mg BID Type 2 tiara betes mellitus 91249369 E11.9 With some hypoglycem ia.continu e Humulin 70/30 20 units BID and SSI continued. continue fingerstic ks QID Essential hypertension 74828046 I10 BP goal for this elderly woman is permissive HTN, with SBP<150 and DBP<90Cont inue lasix 40 mg qd, hydralazin e 25 mg BID lasix 40 mg dailyMonit or BP and labs. Open wound of left lower leg 0059471323 6969187 S81.802A patient son reports that she gets wound care at [facility] and she suppose to have calcium alginate and zinc applied to and around left lower extremity wound. He wants this to continue until wound MD can eval.wound MD alarcon and treatwill ordered to cleanse wound with NS apply calcium alginate and zinc ben wound. [id number] TATI CURRIE [facility] [address] [place] [address] 01/07/2024 14:10:11 01/10/2024 13:39:22 Open wound of left lower leg 2261480656 [id number] S81.802A patient son reports that she gets wound care at [facility] and she suppose to have calcium alginate and zinc applied to and around left lower extremity wound. He wants this to continue until wound MD can eval.wound MD alarcon and quinton ordered to cleanse wound with NS apply calcium alginate and zinc ben wound. Chronic di astolic heart failure 124682010 I50.32 continue lasix 40 mg dailyconti nue potassium 20 meq daily Paroxysmal atrial fibrillation 133605151 I48.0 Cardizem 120 mg dailyconti nue eliquis 2.5 mg BID Type 2 tiara betes mellitus 42031583 E11.9 With some hypoglycem ia.continu e Humulin 70/30 20 units BID and SSI continued. continue fingerstic ks QID Essential hypertension 32322250 I10 BP goal for this elderly woman is permissive HTN, with SBP<150 and DBP<90Cont inue lasix 40 mg qd, hydralazin e 25 mg BID lasix 40 mg dailyMonit or BP and labs. [id number] TATI CURRIE [address] [address] 01/11/2024 10:33:27 01/13/2024 16:16:44 Open wound of left lower leg 6504877454 2347435 S81.802A patient son reports that she gets wound care at [facility] and she suppose to have calcium alginate and zinc applied to and around left lower extremity wound. He wants this to continue until wound can eval.wound MD alarcon and treatwigeovanny ordered to cleanse wound with NS apply calcium alginate and zinc ben wound. Chronic di astolic heart failure 802457182 I50.32 continue lasix 40 mg dailyconti nue potassium 20 meq daily Paroxysmal atrial fibrillation 397229258 I48.0 Cardizem 120 mg dailyconti nue eliquis 2.5 mg BID Type 2 tiara betes mellitus 80737966 E11.9 With some hypoglycem ia.continu e Humulin 70/30 20 units BID and SSI continued. continue fingerstic ks QID Essential hypertension 57455327 I10 BP goal for this elderly woman is permissive HTN, with SBP<150 and DBP<90Cont inue lasix 40 mg qd, hydralazin e 25 mg BID lasix 40 mg dailyMonit or BP and labs. Anemia 820239820 D64.89 H/H trending down this weekstarte d procrit 10/16 and scheduled for bi weeklyunsu re when she last receivedwi ll follow up with patient son. [id number] TATI CURRIE [address] [address] 01/13/2024 10:07:39 01/25/2024 10:52:36 Open wound of left lower leg 2221143440 [id number] S81.802A patient son reports that she gets wound care at [facility] and she suppose to have calcium alginate and zinc applied to and around left lower extremity wound. He wants this to continue until wound can eval.wound MD alarcon and quinton ordered to cleanse wound with NS apply calcium alginate and zinc ben wound. Chronic di astolic heart failure 362311416 I50.32 continue lasix 40 mg dailyconti nue potassium 20 meq daily Paroxysmal atrial fibrillation 910268638 I48.0 Cardizem 120 mg dailyconti nue eliquis 2.5 mg BID Type 2 tiara betes mellitus 97987629 E11.9 With some hypoglycem ia.continu e Humulin 70/30 20 units BID and SSI continued. continue fingerstic ks QID Essential hypertension 47172729 I10 BP goal for this elderly woman is permissive HTN, with SBP<150 and DBP<90Cont inue lasix 40 mg qd, hydralazin e 25 mg BID lasix 40 mg dailyMonit or BP and labs. Anemia 234547223 D64.89 HX of normochrom ic normocytic anemiaH/H trending down this week - tends to fluctuates tarted procrit 29870 10/16 and scheduled for bi weeklyRece ived doses on 10/27, 11/10, 11/24, 12/19 and 01/11/24 Bimalleola r fracture of ankle 801631492 S82.841A chronic with [facility] arthropath y with deformity ankle and midfoothx of infection with osteomyeli tis August 2023follow ed by [facility]- last seen on 01/07/24- recommend 2 tx option 1.conserva tive treatment wit off loading as much as possible, wear heel protector boot.2. Surgical reconstruc tion [id number] TATI CURRIE [place] [address] [place] [address] 01/20/2024 09:44:29 01/25/2024 11:59:00 Open wound of left lower leg 4972185349 0886266 S81.802A continue calcium alginate and zinc left lower extremity woundwound MD alarcon and quinton ordered to cleanse wound with NS apply calcium alginate and zinc ben wound. Chronic di astolic heart failure 457325201 I50.32 stablecont inue lasix 40 mg dailyconti nue potassium 20 meq daily Paroxysmal atrial fibrillation 446144593 I48.0 HR 69Cardizem 120 mg dailyconti nue eliquis 2.5 mg BID Type 2 tiara betes mellitus 29613965 E11.9 With some hypoglycem ia.continu e Humulin 70/30 20 units BID and SSI continued. continue fingerstic ks QID Anemia 476951993 D64.89 HX of normochrom ic normocytic anemiaH/H trending down this week - tends to fluctuates tarted procrit 05504 10/16 and scheduled for bi weeklyRece ived doses on 10/27, 11/10, 11/24, 12/19 and 01/11/24 Bimalleola r fracture of ankle 668148008 S82.841A chronic with [facility] arthropath y with deformity ankle and midfoothx of infection with osteomyeli tis August 2023follow ed by Marks- last seen on 01/07/24- recommend 2 tx option 1.conserva tive treatment wit off loading as much as possible, wear heel protector boot.2. Surgical reconstruc tion [id number] TATI CURRIE [address] [place] [address] [place] [address] 01/25/2024 10:02:09 01/31/2024 15:51:53 Open wound of left lower leg [id number] S81.802A continue calcium alginate and zinc left lower extremity woundwound MD alarcon and quinton ordered to cleanse wound with NS apply calcium alginate and zinc ben wound. Chronic di astolic heart failure 070727121 I50.32 continue lasix 40 mg dailyconti nue potassium 20 meq daily Paroxysmal atrial fibrillation 646361502 I48.0 Cardizem 120 mg dailyconti nue eliquis 2.5 mg BID Type 2 tiara betes mellitus 78818655 E11.9 no recent hypoglycem ic events.con tinue Humulin 70/30 20 units BID and SSI continued. continue fingerstic ks QID Anemia 581532175 D64.89 recent labs stable,HX of normochrom ic normocytic anemiaH/H trending down this week - tends to fluctuates tarted procrit 09911 10/16 and scheduled for bi weeklyRece ived doses on 10/27, 11/10, 11/24, 12/19 and 01/11/24 Bimalleola r fracture of ankle 415074508 S82.841A dressing intact, pain is controlled chronic with charcot arthropath y with deformity ankle and midfoothx of infection with osteomyeli tis August 2023follow ed by Dot- last seen on 01/07/24- recommend 2 tx option 1.conserva tive treatment wit off loading as much as possible, wear heel protector boot.2. Surgical reconstruc tion [id number] TATI CURRIE [address] [place] [address] JACEY CRUMP [address] 01/28/2024 15:29:14 02/01/2024 08:26:24 Open wound of left lower leg [id number] [id number] S81.802A [facility] wound with NS apply calcium alginate and zinc ben wound.elev ate left foot/heel when sitting to keep DTI well perfused Chronic di astolic heart failure 865473932 I50.32 continue lasix 40 mg dailyconti nue potassium 20 meq daily Paroxysmal atrial fibrillation 502327254 I48.0 Cardizem 120 mg dailyconti nue eliquis 2.5 mg BID Type 2 tiara betes mellitus 11055734 E11.9 no recent hypoglycem ic events.con tinue Humulin 70/30 20 units BID and SSI continued. continue fingerstic ks QID Anemia 292988854 D64.89 recent labs stable,HX of normochrom ic normocytic anemiacont inue procrit 53413 10/16 and scheduled for bi weekly Bimalleola r fracture of ankle 279521563 S82.841A she [facility] was seen on 01/23 and will f/u in 2 weeksconti nue with current dressing change. 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 Surgical reconstruc tion [id number] TATI CURRIE [address] [place] [address] JACEY CRUMP [id number] 02/01/2024 10:24:39 02/04/2024 08:49:56 Open wound of left lower leg [id number] 2366465 S81.802A continue to cleanse wound with NS apply calcium alginate and zinc ben wound.elev ate left foot/heel when sitting to keep DTI well perfused Chronic di astolic heart failure 208853887 I50.32 continue lasix 40 mg dailyconti nue potassium 20 meq daily Paroxysmal atrial fibrillation 026202072 I48.0 Cardizem 120 mg dailyconti nue eliquis 2.5 mg BID Type 2 tiara betes mellitus 15432819 E11.9 no recent hypoglycem ic events.con tinue Humulin 70/30 20 units BID and SSI continued. continue fingerstic ks QID Anemia 267467745 D64.89 recent labs stable,HX of normochrom ic normocytic anemiacont inue procrit 95651 10/16 and scheduled for bi weekly Bimalleola r fracture of ankle 369264743 S82.841A [facility] was seen on 01/23 and will f/u in 2 weeksconti nue with current dressing change. 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 Surgical reconstruc tion Chronic ki dney disease 316949883 N18.32 monitor labsavoid nephrotoxi c meds Essential hypertension 95332335 I10 blood pressure has been stable 120-130sBP goal for this elderly woman is permissive HTN, with SBP<150 and DBP<90Cont inue lasix 40 mg qd, hydralazin e 25 mg BID lasix 40 mg dailyMonit or BP and labs. Gout 04659309 M10.09 allopurino l 100 mg dailynot reported recent flare up. [id number] TATI CURRIE [address] [place] [address] 02/04/2024 09:44:41 02/07/2024 14:37:26 Open wound of left lower leg [id number] 8224553 S81.802A continue to cleanse wound with NS apply calcium alginate and zinc ben wound.elev ate left foot/heel when sitting to keep DTI well perfused Chronic di astolic heart failure 605565221 I50.32 euvolemicc ontinue lasix 40 mg dailyconti nue potassium 20 meq daily Paroxysmal atrial fibrillation 930865200 I48.0 Cardizem 120 mg dailyconti nue eliquis 2.5 mg BID Type 2 tiara betes mellitus 62895119 E11.9 BGLs mainly under 200's, a few noted in the 400s. patient and son are very particular about insulin dosing, so will not adjust.con tinue Humulin 70/30 20 units BID and SSI continued. continue fingerstic ks QID Anemia 645455746 D64.89 continue procrit 40637 10/16 and scheduled for bi weekly Bimalleola r fracture of ankle 010363883 S82.841A [facility] on 01/23 and [...] protector boot.2. Surgical reconstruc tion Essential hypertension 88503358 I10 BP goal for this elderly woman is permissive HTN, with SBP<150 and DBP<90Cont inue lasix 40 mg qd, hydralazin e 25 mg BID lasix 40 mg dailyMonit or BP and labs. [id number] TATI CURRIE [address] [address] 02/07/2024 11:53:48 02/09/2024 16:49:24 Open wound of left lower leg [id number] 4173158 S81.802A continue to cleanse wound with NS apply calcium alginate and zinc ben wound.elev ate left foot/heel when sitting to keep DTI well perfused Chronic di astolic heart failure 192999809 I50.32 continue lasix 40 mg dailyconti nue potassium 20 meq daily Paroxysmal atrial fibrillation 325516369 I48.0 Cardizem 120 mg dailyconti nue eliquis 2.5 mg BID Type 2 tiara betes mellitus 35394161 E11.9 continue Humulin 70/30 20 units BID and SSI continued. continue fingerstic ks QID Anemia 446821869 D64.89 continue procrit 21818 10/16 and scheduled for bi weekly Essential hypertension 27647014 I10 Continue lasix 40 mg qd, hydralazin e 25 mg BID lasix 40 mg dailyMonit or BP and labs. [id number] TATI CURRIE [address] [address] 02/10/2024 09:22:17 02/16/2024 10:42:27 Open wound of left lower leg [id number] 7830217 S81.802A continue to cleanse wound with NS apply calcium alginate and zinc ben wound. PCC updatedele vate left foot/heel when sitting to keep DTI well perfused Chronic di astolic heart failure 420402754 I50.32 continue lasix 40 mg dailyconti nue potassium 20 meq daily Paroxysmal atrial fibrillation 432403586 I48.0 Cardizem 120 mg dailyconti nue eliquis 2.5 mg BID Type 2 tiara betes mellitus 98404234 E11.9 continue Humulin 70/30 20 units BID and SSI continued. continue fingerstic ks QIDno reported hypo/hyper glycemic events. Essential hypertension 96439068 I10 Continue lasix 40 mg qd, hydralazin e 25 mg BID lasix 40 mg dailyMonit or BP and labs. [id number] Janee Davis MD [address] [address] 02/14/2024 21:04:27 03/14/2024 07:28:32 Chronic diastolic heart failure 465035774 I50.32 Appears euvolemic. Continue lasix 40 mg qd and KCl 20 meq qd to prevent hypokalemi a.Monitor resp. status, fluid status, wts and labs. Paroxysmal atrial fibrillation 527416697 I48.0 Rate in good control on meds as above.Cont inue eliquis 2.5 mg BID for AC.Monitor HR and bleeding risk. Type 2 tiara betes mellitus 29812032 E11.9 In adequate control.Co ntinue Humulin 70/30 20U BID and SSIContinu e fingerstic ks QID Essential hypertension 05623238 I10 In good control.Co ntinue lasix 40 mg qd, hydralazin e 25 mg BID, diltiazem 120 mg qd, and lasix 40 mg qdMonitor BP and labs. 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 Essential hypertension 24766600 I10 Continue lasix 40 mg qd, hydralazin e 25 mg BID lasix 40 mg dailyMonit or BP and labs. Chronic di astolic heart failure 837659663 I50.32 continue lasix 40 mg dailyconti nue potassium 20 meq daily Paroxysmal atrial fibrillation 517365690 I48.0 Cardizem 120 mg dailyconti nue eliquis 2.5 mg BID Type 2 tiara betes mellitus 13579199 E11.9 continue Humulin 70/30 20 units BID and SSI continued. continue fingerstic ks QIDno reported hypo/hyper glycemic events. Chronic ki dney disease 157186357 N18.32 Back to baseline.C ontinue to avoid nephrotoxi c meds as able.Monit or labs.Renal consult prn. Closed bim alleolar fracture of right ankle [id number] 2650443 S82.841D Continue APAP 1000 mg q 4 hrs prn, NTE 3000 mg/dContin ue fall precaution s.Monitor for safety.F/U with ortho Gastroesop hageal reflux disease without esophagitis 541247219 K21.9 Continue omeprazole 20 mg qd Gout 77709082 M10.09 Continue allopurino l 100 mg qdMonitor for flare. Hyperlipidemia 01097364 E78.49 Continue fenofibrat e 160 mg qdMonitor as outpt. Hypothyroidism 63602817 E03.8 not on medsTSH WNL inpt.Monit or as outpt Hypomagnesemia 128789435 E83.42 Continue Mg+ 400 mg BID.Monito r levels Vitamin D deficiency 347 01351 E56.8 ergocalcif denisse 50,000 IU qdMonitor levels Anemia 848419906 D64.89 Multifacto rial.justo nue procrit 11428 bi weekly Health Concerns Section Related Observation LastModified by Organization Detai ls LastModified Time None Recorded Concern Status LastModified by Organization Details LastModified Time None Recorded Advance Directives Directive Y: Payers Encounter Date Sequence Insurance Name Policy Number Policy Bravo Covered Member ID Bravo Member ID Guarantor Name 02/04/2024 1 [place] [employer] Susan Douglass Piecuch [id number] 2 Susan Piecuch 02/04/2024 2 [place] [id number] Susan Piecuch [id number] Susan Piecuch 02/07/2024 1 [place] [employer] Susan Douglass Piecuch [id number] 2 Susan Piecuch 02/07/2024 2 [place] [id number] Susan Piecuch [id number] Susan Piecuch 02/10/2024 1 [place] [employer] Susan M Piecuch [id number] 2 Ussan Piecuch 02/10/2024 2 [place] [id number] Susan Piecuch [id number] Susan Piecuch 02/14/2024 1 [place] [employer] Susan M Piecuch [id number] 2 Susan Piecuch 02/14/2024 2 [place] [id number] Susan Piecuch [id number] Susan Piecuch 02/18/2024 1 [place] [employer] Susan M Piecuch [id number] 2 Susan Piecuch 02/18/2024 2 [place] [id number] Susan Piecuch [id number] Susan Piecuch Notes Date Note Type [...] broke her right ankle, most recently at [facility] for a CHF exacerbation.She initially presented to the [facility] ED on 11/26 after an unknown injury. Found to have an Acute displaced bimalleolar fracture with ankle mortise disruption. Complicated by chronic pain from right foot Charcot arthropathy. She was splinted and instructed in strict NWB status and d/c to [facility]. Of note she had just been dxed with new onset Afib on 11/24 and started on diltiazem and apixaban.Returned to [facility] ED on 12/13, several days after d/c from [facility], because of difficulty ambulating at home and unable to help her due to his own issues. [facility]Was sent to the [facility] ED on 12/17 because of SOB and [...] ok. there is no acute nursing concerns. SHAE MOSELEY, TATI [address], [address], [place], [address], [facility] 02/04/2024 11:01:05 02/07/2024 text/html This is an 88 yo woman seen today for acute rounding visit. 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 Patient has been in and out of rehabs and hosp since 11/26 when she broke her right ankle, most recently at [facility] for a CHF exacerbation.She initially presented to the [facility] ED on 11/26 after an unknown injury. Found to have an Acute displaced bimalleolar fracture with ankle mortise disruption. Complicated by chronic pain from right foot Charcot arthropathy. She was splinted and instructed in strict NWB status and d/c to [facility]. Of note she had just been dxed with new onset Afib on 11/24 and started on diltiazem and apixaban.Returned to [facility] ED on 12/13, several days after d/c from [facility], because of difficulty ambulating at home and unable to help her due to his own issues. D/C on 12/15 to [facility].Was sent to the [facility] ED on 12/17 because of SOB and AMS.Labs and vitals were WNL (except Na+147 and BNP 222) CXR showed pulmonary edema with small pleural effusions. Neg for RSV/influenza and covid.EKG showed NSR and she was continued on diltiazem and apixaban.She was txed with IV lasix and K+A left dhillon wound was followed by wound care. TATI CURRIE [address], [address], [place], [address], [facility] 02/07/2024 14:37:38 02/10/2024 text/html This is an [...] and s/p MSSA sepsis. TATI CURRIE [address], [address], [place], [address], [facility] 02/10/2024 12:44:47 02/14/2024 text/html I am seeing this 88 yo woman for an acute visit today to f/u on RLE fx, ulcers and NWB status.Son has had concerns about mother refusing wound care and this is being addressed by nursing staff.She was seen at the [facility] wound clinic on 02/06 and it was [...] s/p MSSA sepsis. Janee Davis MD [address], [address], [place], [address], [facility] 03/11/2024 19:10:29 02/18/2024 text/html This is an 88 yo woman due for discharge today. Patient has been in and out of rehabs and hosp since 11/26 when she broke her right ankle, most recently at [facility] for a CHF exacerbation.She initially presented to the [facility] ED on 11/26 after an unknown injury. Found to have a right Acute displaced bimalleolar fracture with ankle mortise disruption. Complicated by chronic pain from right foot Charcot arthropathy. She was splinted and instructed in strict NWB status and d/c to [facility]. Of note she had just been dxed with new onset Afib on 11/24 and started on diltiazem and apixaban.Returned to [facility] ED on 12/13, several days after d/c from [facility], because of difficulty ambulating at home and unable to help her due to his own issues. D/C on 12/15 to [facility].Was sent to the [facility] ED on 12/17 because of SOB and AMS.Labs and vitals were WNL (except Na+147 and BNP 222) CXR showed pulmonary edema with small pleural effusions. Neg for RSV/influenza and covid.EKG showed NSR and she was continued on diltiazem and apixaban.She was txed with IV lasix and K+A left dhillon wound was followed by wound care.She was transferred to [facility] was done on 12/23 [...] and s/p MSSA sepsis. TATI CURRIE [address], [address], [place], [address], [facility] 02/18/2024 14:26:35 OBGyn Episode No OBEpisode recorded.
--- OUTSIDE RECORDS SUMMARY | 2025-01-03 12:25 | XMS_ITS | Encounter Summary ---
Author Organization [facility] Address [address] [place] [phone] Phone Care Team Providers Care Sound Controller Name Role Phone Christopher Zamudio MD Primary Care Provider [phone] Reason for Visit * Reason Comments Med Refill Encounter Details Date Type Department Care Team ([facility] Contact Info) Description 01/03/2025 Refill [facility] [address] [address] Neo Rollins MD [address] [place] [address] Social History Tobacco Use Types Packs/Day [...] EDT Office Visit [facility] [address] [address] Neo Rollins MD [facility] [address] [address] documented as of this encounter Visit Diagnoses Not on filedocumented in this encounter Care Teams Sound Controller Relationship Specialty Start Date End Date Christopher Zamudio MD [address] [place] PCP - General 09/02/20 documented as of this encounter
--- OUTSIDE RECORDS SUMMARY | 2025-01-03 12:25 | XMS_ITS | Clinical Summary ---
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 180 tablet 2024 Active Active Problems Problem Noted Date Diagnosed [...] Overview (09/16/2022): Seen at [facility]. History of malignant basal cell neoplasm of skin 01/27/2019 Overview (09/16/2022): lip Encounters Date Type Department Care Team Description 01/03/2025 Refill [facility] [address] [address] Neo Rollins MD from Last 3 Months Immunizations Immunization Administration [...] Visit [facility] [address] [phone] Neo Rollins MD [address] [phone] Health Maintenance Due Date Last Done Comments [...] average glucose, using the formula of the C0P-Nqutgya Average Glucose study (ADAG), Diabetes Care, Vol.31,#8, Aug. 2007 04/18/2019 10:3 4 AM EDT us Christopher Zamudio MD LAB BLOOD ORDERABLES Final Resu lt [place] from Last 3 Months or Most Recently Relevant to Health Maintenance Insurance [facility] Medicare Medicaid [place] Medicare [facility] Medicaid [place] Care Teams Marine Engine Mechanic Relationship Specialty Start Date End Date Christopher Zamudio MD [address] [place], [place] PCP - General 09/02/20
--- OUTSIDE RECORDS SUMMARY | 2025-01-03 12:25 | XMS_ITS | Clinical Summary ---
Author Organization [facility] Address [address] [place] [address] Care Team Providers Care Hand Woodworking Sander Name Role Phone Christopher Zamudio MD Primary Care Provider [phone] Surgical History Surgery Date Site/Laterality Comments CHOLECYSTECTOMY PROCEDURE: HISTORICAL CHOLECYSTECTOMY; COMMENT: 1981 LEG SURGERY 1985 PROCEDURE: HISTORICAL LEG SURGERY; COMMENT: Vein ablation APPENDECTOMY PROCEDURE: HISTORICAL APPENDECTOMY; COMMENT: 1981 OTHER SURGICAL HISTORY 08/18/2023 Right PROCEDURE: ID INCISION BONE CORTEX FOOT; COMMENT: right, 5th metatarsal OTHER SURGICAL HISTORY 08/18/2023 Right PROCEDURE: ID BIOPSY BONE OPEN SUPERFICIAL; COMMENT: right, 5th proximal phalanx OTHER SURGICAL HISTORY 08/18/2023 Right PROCEDURE: ID SECONDARY CLOSURE SURG WOUND/DEHSN XTNSV/COMP Medical History [...] (HCC); COMMENT: Seen at [facility]. History of cataract 10/17/2020 DX:History o f cataract Type 2 diabetes mellitus wit h cataract (CMS/HCC V24, CMS/HCC V28) 10/17/2020 DX:Type 2 diabetes mellitus with cataract ([facility]) Arrhythmia 10/17/2020 DX:Arrhythmia Family History [...] Documents on File Type Date Recorded Patient Make Ready Mechanic Expl anation Health Care Decision (hx) 08/20/2023 AD العراقي DIRECTIVE Health Care Decision (hx) 08/20/2023 AD العراقي DIRECTIVE Care Teams Hand Woodworking Sander Relationship Specialty Start Date End Date Christopher Zamudio MD [address] [place] [address] [place] [address] PCP - General 09/10/16
== END 2025-01-03 11:27 | disposition home or self-care (01) ==
LOC: HO.LAB 11:26
PROVIDERS: Visit Provider Internal Medicine Medical Oncology
DX: H61.23 Impacted cerumen, bilateral (principal); H91.90 Unspecified hearing loss, unspecified ear; N18.4 Chronic kidney disease, stage 4 (severe); D64.9 Anemia, unspecified
CPT/HCPCS: 36415; 69210; 85025; 96127; 99212

== ENCOUNTER 2025-01-03 14:45 | Outpatient (AMB) | payer MEDICARE, SELFPAY ==
--- OUTSIDE RECORDS SUMMARY | 2025-01-03 14:48 | XMS_ITS | Encounter Summary ---
Author Organization [facility] Address [address] [place] [phone] Phone Care Team Providers Care Bat Lathe Operator Name Role Phone Christopher Zamudio MD Primary Care Provider [phone] Reason for Visit * Reason Comments Med Refill Encounter Details Date Type Department Care Team ([facility] Contact Info) Description 01/03/2025 Refill [facility] [address] [address] Neo Rollins MD [address] [place] [address] Social History Tobacco Use Types Packs/Day [...] EDT Office Visit [facility] [address] [address] Neo Rollins MD [facility] [address] documented as of this encounter Visit Diagnoses Not on filedocumented in this encounter Care Teams Bat Lathe Operator Relationship Specialty Start Date End Date Christopher Zamudio MD [address] [place] PCP - General 09/02/20 documented as of this encounter
--- OUTSIDE RECORDS SUMMARY | 2025-01-03 14:48 | XMS_ITS | Clinical Summary ---
Author Organization [facility] Address [address] [place] [id number] Care Team Providers Care Chocolate Dipper Name Role Phone Christopher Zamudio MD Primary Care Provider [phone] Surgical History Surgery Date Site/Laterality Comments CHOLECYSTECTOMY PROCEDURE: HISTORICAL CHOLECYSTECTOMY; COMMENT: 1981 LEG SURGERY 1985 PROCEDURE: HISTORICAL LEG SURGERY; COMMENT: Vein ablation APPENDECTOMY PROCEDURE: HISTORICAL APPENDECTOMY; COMMENT: 1981 OTHER SURGICAL HISTORY 08/18/2023 Right PROCEDURE: ME INCISION BONE CORTEX FOOT; COMMENT: right, 5th metatarsal OTHER SURGICAL HISTORY 08/18/2023 Right PROCEDURE: ME BIOPSY BONE OPEN SUPERFICIAL; COMMENT: right, 5th proximal phalanx OTHER SURGICAL HISTORY 08/18/2023 Right PROCEDURE: ME SECONDARY CLOSURE SURG WOUND/DEHSN XTNSV/COMP Medical History [...] (HCC); COMMENT: Seen at [facility]. History of cataract 10/17/2020 DX:History o f cataract Type 2 diabetes mellitus wit h cataract (CMS/HCC V24, CMS/HCC V28) 10/17/2020 DX:Type 2 diabetes mellitus with cataract ([facility]) Arrhythmia 10/17/2020 DX:Arrhythmia Family History [...] Documents on File Type Date Recorded Patient Milliner Helper Expl anation Health Care Decision (hx) 08/20/2023 AD العراقي DIRECTIVE Health Care Decision (hx) 08/20/2023 AD العراقي DIRECTIVE Care Teams Chocolate Dipper Relationship Specialty Start Date End Date Christopher Zamudio MD [address] [place] [address] [place] [id number] PCP - General 09/10/16
--- OUTSIDE RECORDS SUMMARY | 2025-01-03 14:48 | XMS_ITS | Clinical Summary ---
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 History of malignant basal cell neoplasm of skin 01/27/2019 Overview (09/16/2022): lip Encounters Date Type Department Care Team Description 01/03/2025 Refill [facility] [address] [phone] Neo Rollins MD from Last 3 Months [...] Visit [facility] [address] [phone] Neo Rollins MD [address] [phone] Health Maintenance Due Date Last Done Comments [...] ? sample. Estimated Average Glucose 154 MG/DL LAISIA Comment: eAG = Estimated average glucose which is %A1C expressed as average glucose, using the formula of the [id number] Average Glucose study (ADAG), Diabetes Care, Vol.31,#8, Aug. 2007 04/18/2019 10:3 4 AM EDT us Christopher Zamudio MD LAB BLOOD ORDERABLES Final Resu lt [place] from Last 3 Months or Most Recently Relevant to Health Maintenance Insurance [facility] Medicare Medicaid [place] [facility] [place] Care Teams Ground Systems Engineer Relationship Specialty Start Date End Date Christopher Zamudio MD [address] [place], [place] PCP - General 09/02/20
--- NOTE | 2025-01-03 14:49 | A.OFFPC_ITS ---
Vital Signs 01/03/25 14:52 Height 5 ft 5 in Weight 192 lb BMI 31.9 BP 130/84 Blood Pressure Location Lt brachial Position Sitting Pulse 76 Pulse Source Pulse Oximeter Temp 97.1 F Temp Source Temporal Artery Scan Pulse Oximetry (%) 99 Oxygen Delivery Method Room Air Intake Visit Reasons: ear cleaning Intake Note: Patient is here to follow up on Ear cleaning. Information Systems Director Required: No Mother'S Helper: Present Accompanied by: Son Allergies codeine [CODEINE] Allergy (Intermediate, Verified 01/03/25 14:58) BACK PAIN pollen extracts [POLLEN] Allergy (Mild, Verified 01/03/25 14:58) SINUS IRRITATION metoprolol Adverse Reaction (Intermediate, Verified 01/03/25 14:58) Hallucinations Medication List - Last Reconciled 01/03/25 by Sharla Figueroa PA-C acetaminophen 500 mg PO Q4H PRN allopurinol 100 mg PO DAILY ammonium lactate 12% 1 appl topical .QOD PRN apixaban (Eliquis) 2.5 mg PO BID blood sugar diagnostic (Accu-Chek Radha Plus test strips) USE DIRECTED TO TEST BLOOD SUAGR Four TIMES DAILY chair, wheel (Wheel chair) As directed chair, wheel (Wheel chair) As directed [Diabetic shoe inserts As directed] [Diabetic shoes As directed] diabetic supplies, miscellan. DIABETIC SHOES WITH 3 INSERTS diltiazem HCl CD 120 mg PO DAILY epoetin jayna (Procrit) 40,000 units subcut .[id number] ergocalciferol (vitamin D2) 1,250 mcg PO Q14D fenofibrate 160 mg PO DAILY [hEEL PROTECTOR CUSHION Beckham t for pressure ulcer/FX right ankle t for pressure As directed] hydralazine 25 mg PO BID 90 days insulin NPH and regular human 100 unit/mL (70-30) (Humulin 70/30 U-100 KwikPen) 20 units (0.2 mL) subcut BID lancets (Microlet Lancet) USE DIRECTED TO CHECK BLOOD GLUCOSE THREE TIMES DAILY nystatin 1 appl topical TID PRN off loading boot As directed omeprazole 20 mg PO DAILY@0630 pen needle, diabetic (1st Tier Unifine Pentips) As directed 2 times per day pen needle, diabetic As directed walker (Ultra[place]Light [place] [facility] [place] To use daily Tobacco use date assessed: 01/03/25 Fall risk assessment: No Falls in past year Last assessed Fall Risk: 01/03/25 Dental Screening Dental Screen Date: 12/13/24 HPI ear cleaning HPI Details 89-year-old female coming to the office with the 1st time. Patient having decreased hearing bilaterally which she believes to be related to her cerumen impaction. She has been using Debrox drops for the last few days. [facility] Medical History Hyperlipidemia CKD (chronic kidney disease) stage 4, GFR 15-29 ml/min Atrial fibrillation Osteomyelitis Gout Anemia Hx of type A viral hepatitis Obesity Diabetes mellitus Surgical History History of foot surgery History of surgical removal of skin lesion History of biopsy History of excision of lesion H/O varicose vein ligation History of cholecystectomy Family History Father Gastric cancer Mother Acute CVA (cerebrovascular accident) Diabetes Brother Colon cancer Social History Household Members: Children Housing: House Do you presently have visiting nurse or other home services: Yes Alcohol intake: never Patient Tobacco Use Status: Never used Tobacco e-Cigarette/Vaping Use: Never Used Second Hand Smoke Exposure: No service: No Current occupational status: retired Cognitive needs: Yes (walker ) Hearing needs: No Vision needs: Yes Questionnaire PHQ-9 Over the last 2 weeks, how often have you been bothered by any of the following problems? 1. Little interest or pleasure in doing things: not at all 2. Feeling down, depressed, or hopeless: several days 3. Trouble falling or staying asleep, or sleeping too much: nearly every day 4. Feeling tired or having little energy: more than half the days 5. Poor appetite or overeating: not at all 6. Feeling bad about yourself - or that you are a failure or have let yourself or your family down: not at all 7. Trouble concentrating on things, such as reading the newspaper or watching television: nearly every day 8. Moving or speaking so slowly that other people could have noticed. Or the opposite - being so fidgety or restless that you have been moving around a lot more than usual: not at all 9. Thoughts that you would be better off or of hurting yourself in some way: not at all Total score: 9 Depression Screening Interpretation: Positive Depression Screening Done: Yes Source: Developed by Drs. Wilber Ortega, Vickie Briseno, David Calzada and colleagues, with an educational aide from [employer]. Thrive Questionnaire Date Thrive assessed: 12/13/24 I am a: Patient What is your living situation today?: I have a steady place to live Within the past 12 months, did the food you bought not last and you didn't have the money to get more?: Never true Within the past 12 months, did you worry whether your food would run out before you got money to buy more?: Never true Do you have trouble paying for medicines?: No Do you have trouble getting transportation to medical appointments?: No Do you have trouble paying your heating and electricity bill?: No Do you have trouble taking care of your child, family member or friend?: Yes Do you have trouble with day-to-day activities such as bathing, preparing meals, shopping, managing finances, etc.?: Yes Are you currently unemployed and looking for a job?: No Are you interested in more education?: No Please select the resources that you would like help with: None Currently or been in a relationship where the following occur: No concerns reported THRIVE Score: 0 AUDIT C Alcohol Use Questionnaire (AUDIT-C) 1. How often do you have a drink containing alcohol?: Never Total Score: 0 IWONA-7 AMB Questionnaire IWONA-7 Date IWONA - 7 assessed: 09/14/24 Feeling nervous, anxious, or on edge: 0 = Not at all Not being able to stop or control worryin = More than half the days Worrying too much about different things: 2 = More than half the days Trouble relaxin = More than half the days Being so restless that it is hard to sit still: 0 = Not at all Becoming easily annoyed or irritable: 2 = More than half the days Feeling afraid as if something awful might happen: 0 = Not at all Total IWONA-7 score (0-4 normal; 5-9 mild; 10-14 moderate; 15-21 severe): 8 Source: Developed by Drs. Wilber Ortega, Vickie Briseno, David Calzada and colleagues, with an educational aide from [employer]. Review of Systems ENT Details: Ear clogged feeling and decreased hearing Physical exam (Primary Care) Vital Signs: Last Vital Signs Temp 97.1 F 01/03/25 14:52 Oxygen Delivery Method Room Air 01/03/25 14:52 BMI result Body Mass Index 31.9 Tobacco/Smoking Status: Tobacco use Status Tobacco use date assessed 12/13/24 01/03/25 14:50 Patient Tobacco Use Status Never used Tobacco 01/03/25 14:50 e-Cigarette/Vaping Use Never Used 01/03/25 14:50 PHQ-9: PHQ-9 Score PHQ-9: Total score 9 01/03/25 14:50 Depression Screening Interpretation: Positive Thrive Assessment: Date of Thrive Assessment Date Thrive assessed 12/13/24 01/03/25 14:50 Currently or been in a relationship where the following occur: No concerns reported Const General: cooperative, healthy appearing, comfortable and no acute distress Orientation/consciousness: patient oriented x3 HENMT Head: Yes normocephalic Ears: hearing grossly normal bilaterally and Abnormal EAC present excessive cerumen bilateral General nose exam: Normal external nose present Resp Effort & Inspection: normal respiratory effort Cardio Rate: regular rate Neuro General: patient oriented x3 Gait exam (Neuro): Normal gait present Office Procedures Cerumen Removal From which ear canal was the cerumen removed: bilateral Removal: cerumen loop/spoon Notes: patient tolerated procedure well, no complications and ear canal clear [id number] Wax Removal by Spoon/Curette Coding Level of Care Code Est Pt Level 3 (02917) Procedure Only Diagnoses Cerumen impaction H61.20 Difficulty hearing H91.90 CPT Codes Office Procedure - CPT: 78413-Zgk Wax Removal by Spoon/Curette ([id number]) Assessment & Plan Assessment & Plan (1) Cerumen impaction: Code(s): H61.20 - Impacted cerumen, unspecified ear Category: Medical Plan: Bilateral ears were cleaned using lighted curette. Patient tolerated the ear canal and bilateral TMs were visualized as intact with well aerated middle ear spaces. Ear canals were atraumatic and no complications patient left the room without difficulty. Follow up as needed for this concern (2) Difficulty hearing: Code(s): H91.90 - Unspecified hearing loss, unspecified ear Category: Medical Plan: Patient continued to have decreased hearing despite the removal of wax from bilateral ears. Plan to obtain hearing test for further evaluation. Plan This note was constructed using voice recognition software. While every effort has been made to ensure accuracy and patient registration manager, still areas may have been included sometimes these areas may affect the content or meeting of the given symptoms. Total time spent caring for the patient today was 20 minutes. This includes time spent before the visit reviewing the chart, time spent during the visit, and time spent after the visit and documentation. Orders: Referrals Speech and Hearing Referral H91.90 - Unspecified hearing loss, unspecified ear
[2025-01-03 14:52] VITALS: BP 130/84; PULSE 76; TEMP 36.2; O2SAT 99; BMI 31.9
== END 2025-01-03 15:27 | disposition home or self-care (01) ==
LOC: HO.HMCH 14:46
PROVIDERS: PCP Internal Medicine
DX: H91.93 Unspecified hearing loss, bilateral (principal); H61.23 Impacted cerumen, bilateral

== ENCOUNTER 2025-01-18 13:34 | Outpatient (AMB) | payer MEDICARE, SELFPAY ==
--- OUTSIDE RECORDS SUMMARY | 2025-01-18 13:41 | XMS_ITS | Clinical Summary ---
Author Organization [employer] Address [address] [place] [address] [address] [place] [address] Care Team Providers Care Housecleaner Floor Name Role Phone Unavailable Primary Care Provider [...]
[2025-01-18 13:52] VITALS: BP 124/62; PULSE 77
--- NOTE | 2025-01-18 13:52 | MHC.OFFVIS ---
Vital Signs 01/18/25 13:52 Height 5 ft 5 in BP 124/62 Blood Pressure Location Rt brachial Position Sitting Pulse 77 Pulse Source Pulse Oximeter Intake Visit Reasons: 5 mth f/up Solar Technician Required: No Nurses' Association Executive Director: Nurses' Association Executive Director Present Allergies codeine [CODEINE] Allergy (Intermediate, Verified 01/18/25 13:54) BACK PAIN pollen extracts [POLLEN] Allergy (Mild, Verified 01/18/25 13:54) SINUS IRRITATION metoprolol Adverse Reaction (Intermediate, Verified 01/18/25 13:54) Hallucinations Medication List - Last Reconciled 01/18/25 by BONITA Easton acetaminophen 500 mg PO Q4H PRN allopurinol 100 mg PO DAILY ammonium lactate 12% 1 appl topical .QOD PRN apixaban (Eliquis) 2.5 mg PO BID blood sugar diagnostic (Accu-Chek Radha Plus test strips) USE DIRECTED TO TEST BLOOD SUAGR Four TIMES DAILY chair, wheel (Wheel chair) As directed chair, wheel (Wheel chair) As directed [Diabetic shoe inserts As directed] [Diabetic shoes As directed] diabetic supplies, miscellan. DIABETIC SHOES WITH 3 INSERTS diltiazem HCl CD 120 mg PO DAILY epoetin jayna (Procrit) 40,000 units subcut .[id number] ergocalciferol (vitamin D2) 1,250 mcg PO Q14D fenofibrate 160 mg PO DAILY [hEEL PROTECTOR CUSHION Beckham t for pressure ulcer/FX right ankle t for pressure As directed] hydralazine 25 mg PO BID 90 days insulin NPH and regular human 100 unit/mL (70-30) (Humulin 70/30 U-100 KwikPen) 20 units (0.2 mL) subcut BID lancets (Microlet Lancet) USE DIRECTED TO CHECK BLOOD GLUCOSE THREE TIMES DAILY nystatin 1 appl topical TID PRN off loading boot As directed omeprazole 20 mg PO DAILY@0630 pen needle, diabetic (1st Tier Unifine Pentips) As directed 2 times per day pen needle, diabetic As directed walker (Ultra-Light Rollator misc) To use daily HPI HPI 5 mth f/up: Details: Susan is an 89-year-old female with past medical history of obesity, chronic kidney disease, hypertension, hyperlipidemia, diabetes, persistent atrial fibrillation, mild cardiomyopathy, recent abnormal nuclear stress test who presents for follow-up. Today she reports that she has been doing very well since her last visit in July. She has not had any cardiac complaints. No chest discomfort at rest or with activity. No heart palpitations, lightheadedness, presyncope, syncope, falls. No shortness of breath, PND, orthopnea. She does have some chronic tight edema in her lower extremities which is recently unchanged.. She is mostly sedentary. She is taking meds as directed. No bleeding issues reported. Her son is present. [facility] Medical History Hyperlipidemia CKD (chronic kidney disease) stage 4, GFR 15-29 ml/min Atrial fibrillation Osteomyelitis Gout Anemia Hx of type A viral hepatitis Obesity Diabetes mellitus Surgical History History of foot surgery History of surgical removal of skin lesion History of biopsy History of excision of lesion H/O varicose vein ligation History of cholecystectomy Family History Father Gastric cancer Mother Acute CVA (cerebrovascular accident) Diabetes Brother Colon cancer Social History Household Members: Children Housing: House Do you presently have visiting nurse or other home services: Yes Alcohol intake: never Patient Tobacco Use Status: Never used Tobacco e-Cigarette/Vaping Use: Never Used Second Hand Smoke Exposure: No service: No Current occupational status: retired Cognitive needs: Yes (walker ) Hearing needs: No Vision needs: Yes Review of Systems Const All systems reviewed & are unremarkable except as noted in HPI and below ENT Denies dizziness Card Details: palpitations at times Denies chest pain, Denies chest pain at rest, Denies chest pain with activity, Denies rapid heart rate, Denies pedal edema, Denies edema, Denies leg edema, Denies lightheadedness, Denies palpitations, Denies dyspnea, Denies dyspnea on exertion and Denies orthopnea Resp Denies cough, Denies dyspnea and Denies dyspnea on exertion GI Denies hematochezia and Denies change in stool character Musc Denies abnormal gait, Denies limited range of motion, Denies muscle cramps, Denies muscle weakness, Denies numbness, Denies radiating pain into limb, Denies stiffness and Denies tingling Neuro Denies abnormal gait, Denies dizziness, Denies numbness and Denies tingling Endo Denies palpitations Physical Exam Vital Signs: Last Vital Signs Pulse 77 01/18/25 13:52 BP 124/62 01/18/25 13:52 Const General: cooperative, healthy appearing, comfortable and no acute distress Orientation/consciousness: patient oriented x3 Neck Neck: Yes normal visual inspection and Yes no JVD Resp Effort & Inspection: normal respiratory effort Auscultation: clear to auscultation bilaterally, no rales, no rhonchi and no wheezes Cardio Rate: regular rate Rhythm: abnormal rhythm Heart sounds: S1 normal heart sound present, S2 normal heart sound present, no gallops, no murmurs and no rubs Neuro General: patient oriented x3 Extrem Other: tight edema in each lower leg Psych Appearance: grossly normal Mental Status: mental status grossly normal Speech and movement: Normal speech and movement present Assessment & Plan Assessment & Plan (1) Atrial fibrillation: Code(s): I48.91 - Unspecified atrial fibrillation Category: Medical Plan: History of persistent Atrial fibrillation. A Holter monitor was done on 12/24/2023 for 3 days shows atrial fibrillation with average heart rate 76, PVCs 2.4% of time, brief an SVT runs with longest 5 beats. Echocardiogram done 12/24/2023 shows EF 45-50%, basal inferior hypokinesis. Previous echo from 2020 showed normal EF. Clinically in AFib on exam. She has been on diltiazem for heart rate control. She is not on metoprolol since she reports it gave her hallucinations in the past. Will continue the diltiazem as EF is only mildly reduced. Will update echo prior to next visit. She is on Eliquis 2.5 mg b.i.d. That dose is appropriate for her age and kidney function. She does have known chronic kidney disease and follows with Nephrology. (2) CHF (congestive heart failure): Code(s): I50.9 - Heart failure, unspecified Category: Medical Qualifiers: Heart failure chronicity: unspecified Heart failure type: unspecified Qualified Code(s): I50.9 - Heart failure, unspecified Plan: Episode of acute diastolic heart failure for 2023 following admission for fractured ankle. She was treated for mild Congestive heart failure and discharged with Lasix 40 mg daily. Since then her Lasix has been discontinued most likely related to her chronic kidney disease. Labs done on 12/06/2024 shows creatinine 1.98. On exam she does have some tight lower leg edema which is not new for her. Discussed leg elevation, low-salt diet, compression socks. Signs and symptoms of heart failure reviewed with her. (3) CKD (chronic kidney disease) stage 4, GFR 15-29 ml/min: Code(s): N18.4 - Chronic kidney disease, stage 4 (severe) Category: Medical Plan: As above (4) Cardiomyopathy: Code(s): I42.9 - Cardiomyopathy, unspecified Category: Medical Plan: Mild cardiomyopathy as above. A nuclear stress test was done on showed mixed ischemia/infarct pattern in the apex and adjacent parts of the anterior septum and inferior wall, nontransmural infarct pattern in the basal part of the inferior wall and adjacent inferior septum. She currently denies any cardiac concerns or symptoms. Signs and symptoms of angina reviewed with her. She is not on aspirin as she is on Eliquis. She is on diltiazem. She reports hallucinations with beta-king. She is not on Anand or Arb due to CKD. She is on hydralazine to help with blood pressure control. She is not on statin for unclear reason. Labs done 12/28/2023 had shown LDL 63. (5) Abnormal nuclear stress test: Code(s): R94.39 - Abnormal result of other cardiovascular function study Category: Medical Plan: As above (6) Edema: Code(s): R60.9 - Edema, unspecified Category: Medical Plan: As above Plan Time spent on chart review, documentation, interview and assessment I discussed her heart rhythm of Atrial Fibrillation, I reviewed the continuation of diltiazem and Eliquis, stressing the avoidance of aspirin due to increased bleeding risk. The patient was informed about monitoring for bleeding and maintaining a low-salt diet. We discussed the management of her leg edema/ Charcot Joint Disease, emphasizing the importance of leg elevation and the use of compression stockings to manage edema. I explained the discontinuation of furosemide due to renal concerns and the potential future re-evaluation of diuretics. Follow-up in six months was planned, and I will arrange for an echocardiogram to assess cardiac function. Patient consented to the current management plan. Orders: Orders CA echo transthoracic complete 5 Months I48.91 - Unspecified atrial fibrillation, I50.9 - Heart failure, unspecified Patient Instructions: - Continue using the supportive boot and elevate legs as much as possible. - Wear compression stockings to help with leg swelling. - Take diltiazem and Eliquis as prescribed. - Avoid taking aspirin due to bleeding risk. - Watch for any signs of bleeding and contact us if noticed. - Follow a low-salt diet to help manage swelling. - Return for a follow-up appointment in six months. - An echocardiogram will be scheduled before your next visit. Patient was informed and verbally consented to the use of an ambient scribe for clinic note documentation during this visit. Coding Level of Care Code Est Pt Level 4 (46346) Complex EM visit Add On G2211 Diagnoses Atrial fibrillation I48.91 Congestive heart failure, unspecified HF chronicity, unspecified heart failure type I50.9 Heart failure chronicity: unspecified Heart failure type: unspecified CKD (chronic kidney disease) stage 4, GFR 15-29 ml/min N18.4 Cardiomyopathy I42.9 Abnormal nuclear stress test R94.39 Edema R60.9 Time Spent (min) 32
== END 2025-01-18 14:23 | disposition home or self-care (01) ==
LOC: HO.HCS 13:35
PROVIDERS: PCP Internal Medicine; Visit Provider Nurse Practitioner Family
DX: I48.91 Unspecified atrial fibrillation (principal); I50.9 Heart failure, unspecified; N18.4 Chronic kidney disease, stage 4 (severe); I42.9 Cardiomyopathy, unspecified; R94.39 Abnormal result of other cardiovascular function study; R60.9 Edema, unspecified
CPT/HCPCS: 99214; G2211

== ENCOUNTER → 2025-01-18 13:34 | Outpatient (BNVA) | payer MEDICARE, SELFPAY | PROVIDERS: PCP Internal Medicine; Visit Provider Nurse Practitioner Family | DX: I12.9 Hypertensive chronic kidney disease with stage 1 through stage 4 chronic kidney disease, or unspecified chronic kidney disease (principal); E11.22 Type 2 diabetes mellitus with diabetic chronic kidney disease; N18.9 Chronic kidney disease, unspecified; E78.5 Hyperlipidemia, unspecified; I48.19 Other persistent atrial fibrillation; I42.9 Cardiomyopathy, unspecified; I11.0 Hypertensive heart disease with heart failure; I50.9 Heart failure, unspecified; R94.39 Abnormal result of other cardiovascular function study; R60.9 Edema, unspecified | CPT/HCPCS: 99212 ==

== ENCOUNTER 2025-01-31 11:02 | Outpatient (REF) | payer MEDICARE, SELFPAY ==
[2025-01-31 11:31] LABS: MANUAL DIFF FLAG NO
[2025-01-31 11:37] LABS: Basophils Percent Auto 0.5 % (0-2); Eosinophils Absolute Auto 0.1 X10*3/uL (0.0-0.4); Eosinophils Percent Auto 2.1 % (0-4); Hematocrit 33.8 % (37.0-47.0); Hemoglobin 10.7 g/dl (12.0-16.0); Imm Gran Abs Auto 0.02 X10*3/uL (0.00-0.03); Imm Gran Pct Auto 0.4 % (0.0-0.4); Lymphocytes Absolute Auto 1.4 X10*3/uL (1.2-4.9); Lymphocytes Percent Auto 24.7 % (20-40); Mean Corpuscular HGB Conc 31.7 g/dl (31.0-35.0); Mean Corpuscular Hemoglobin 27.2 pg (27.0-33.0); Mean Platelet Volume 11.9 fL (9.4-12.3); Monocytes Absolute Auto 0.3 X10*3/uL (0.1-1.2); Monocytes Percent Auto 5.5 % (2-11); Neutrophils Absolute Auto 3.7 x10*3/uL (2.0-8.3); Neutrophils Percent Auto 66.8 % (45-73); Platelet Count 236 X10*3/uL (160-400); Red Blood Count 3.93 X10*6/uL (4.20-5.50); Red Cell Distribution Width 18.7 % (11.0-16.0); White Blood Count 5.6 X10*3/uL (4.8-10.8)
--- OUTSIDE RECORDS SUMMARY | 2025-01-31 12:38 | XMS_ITS | Clinical Summary ---
Author Organization [employer] Address [address] [place] [address] [address] [place] [address] Care Team Providers Care Rotating Equipment Engineer Name Role Phone Unavailable Primary Care [...] or Tdap) 02/02/2022 02/03/2012, 01/21/2001 COVID-19 Vaccine ( - 2023-2 5 season) 2024 10/22/2020, 09/23/2020 Influenza Vaccine (Season Ended) 2025 HIB Vaccines [...]
== END 2025-01-31 11:03 | disposition home or self-care (01) ==
LOC: HO.LAB 11:02
PROVIDERS: Visit Provider Internal Medicine Medical Oncology
DX: N18.4 Chronic kidney disease, stage 4 (severe) (principal); D63.8 Anemia in other chronic diseases classified elsewhere
CPT/HCPCS: 36415; 85025

== ENCOUNTER 2025-02-06 12:52 | Outpatient (REF) | payer MEDICARE, SELFPAY ==
--- OUTSIDE RECORDS SUMMARY | 2025-02-06 14:34 | XMS_ITS | Clinical Summary ---
Author Organization [employer] Address [address] [place] [address] [address] [place] [address] Care Team Providers Care Fittings Finisher Name Role Phone Unavailable Primary Care Provider [...]
== END 2025-02-06 12:53 | disposition home or self-care (01) ==
LOC: HO.SH 12:52
DX: Z01.118 Encounter for examination of ears and hearing with other abnormal findings (principal); H90.3 Sensorineural hearing loss, bilateral
CPT/HCPCS: 92557; 92567

== ENCOUNTER 2025-02-14 11:09 | Outpatient (REF) | payer MEDICARE, SELFPAY ==
[2025-02-14 11:23] LABS: MANUAL DIFF FLAG NO
[2025-02-14 11:49] LABS: Basophils Percent Auto 0.6 % (0-2); Eosinophils Absolute Auto 0.2 X10*3/uL (0.0-0.4); Eosinophils Percent Auto 3.9 % (0-4); Hematocrit 30.8 % (37.0-47.0); Hemoglobin 9.7 g/dl (12.0-16.0); Imm Gran Abs Auto 0.01 X10*3/uL (0.00-0.03); Imm Gran Pct Auto 0.2 % (0.0-0.4); Lymphocytes Absolute Auto 1.4 X10*3/uL (1.2-4.9); Lymphocytes Percent Auto 22.5 % (20-40); Mean Corpuscular HGB Conc 31.5 g/dl (31.0-35.0); Mean Corpuscular Hemoglobin 27.3 pg (27.0-33.0); Mean Corpuscular Volume 86.8 fL (80.0-98.0); Mean Platelet Volume 12.4 fL (9.4-12.3); Monocytes Absolute Auto 0.4 X10*3/uL (0.1-1.2); Monocytes Percent Auto 6.8 % (2-11); Neutrophils Absolute Auto 4.1 x10*3/uL (2.0-8.3); Platelet Count 216 X10*3/uL (160-400); Red Blood Count 3.55 X10*6/uL (4.20-5.50); Red Cell Distribution Width 18.3 % (11.0-16.0); White Blood Count 6.2 X10*3/uL (4.8-10.8)
--- OUTSIDE RECORDS SUMMARY | 2025-02-14 13:18 | XMS_ITS | Clinical Summary ---
Author Organization [employer] Address [address] [place] [address] [address] [place] [address] Care Team Providers Care Slaughterer Religious Ritual Name Role Phone Unavailable Primary Care Provider [...]
== END 2025-02-14 11:10 | disposition home or self-care (01) ==
LOC: HO.LAB 11:09
PROVIDERS: Visit Provider Internal Medicine Medical Oncology
DX: N18.4 Chronic kidney disease, stage 4 (severe) (principal); D63.1 Anemia in chronic kidney disease
CPT/HCPCS: 36415; 85025

== ENCOUNTER 2025-02-18 13:24 | Inpatient (IN) | payer MEDICARE, SELFPAY ==
--- NOTE | ~2025-02-18 | XR_ITS ---
CLINICAL HISTORY: cough 1 view chest Comparison: CR/SR - XR CHEST 1V - 12/21/23 12:24 EDT Findings: Cardiac and mediastinal contours are normal. Mild interstitial prominence with scattered peribronchial thickening. No focal consolidation. No effusion. No pneumothorax. No acute osseous finding. Impression: Mild interstitial prominence with scattered peribronchial thickening. No focal consolidation. This document has been electronically signed by: Abdiaziz Bonilla MD on 02/18/2025 15:34:34
[2025-02-18 13:29] VITALS: BP 138/57; BP 156/74; PULSE 104; PULSE 86; RESP 18; TEMP 36.8; O2SAT 97; O2SAT 98; BMI 35.6
--- NOTE | 2025-02-18 13:40 | ECG_ITS ---
Test Reason : weakness Blood Pressure : */* mmHG Vent. Rate : 87 BPM Atrial Rate : * BPM P-R Int : * ms QRS Dur : 92 ms QT Int : 374 ms P-R-T Axes : * -13 27 degrees QTcB Int : 450 ms Atrial fibrillation Low voltage QRS Inferior infarct , age undetermined Cannot rule out Anterior infarct (cited on or before 29-Nov-2006) Abnormal ECG When compared with ECG of 18-Dec-2023 20:13, Nonspecific T wave abnormality no longer evident in Lateral leads Referred By: Dia Mc Electronically Signed By: EFREN CM MD
--- NOTE | 2025-02-18 13:55 | ED_ITS ---
HPI - General Adult General Chief complaint: Weakness Stated complaint: WEAKNESS COUGHING KIDNEY CA Time Seen by Provider: 02/18/25 13:55 Source: patient and EMS Mode of arrival: EMS Limitations: no limitations History of Present Illness ED Provider: Dia Mc PA-C HPI narrative: Patient is an 89 year old assigned female at with a history of hyperlipidemia, DM, CHF, CKD stage 4, atrial fib on Eliquis, and HTN presenting to the emergency department today with a cough, weakness, chills, and diarrhea. Patient states that over the last 2 weeks she has felt generally unwell with a cough, chills, weakness, and feeling generally unwell. Patient denies any dizziness, lightheadedness, abdominal pain, nausea, vomiting, fever, blurry vision, double vision, loss of vision, chest pain, difficulty breathing, shortness of breath, back pain, night sweats, pain with urination, increased urinary frequency, increased urinary urgency, blood in her urine or stool, syncope or a near syncopal episode, recent trauma or falls, bowel incontinence, bladder incontinence, or any other complaints at this time. Onset (ago): week(s) (2) Relieving factors: none Exacerbating factors: none Associated symptoms: fever/chills and weakness Treatments prior to arrival: none Related Data Home Medications ?Medication ?Instructions ?Recorded ?Confirmed acetaminophen 500 mg tablet 500 mg PO Q4H PRN Moderate Pain 12/19/23 02/18/25 (Scale Score 5-6) insulin NPH-regular 70-30 U-100 5 - 15 unit subcut BED TIME 02/18/25 02/18/25 insulin 100 unit/mL subcutaneous pen (Humulin 70/30 U-100 KwikPen) insulin NPH-regular 70-30 U-100 20 unit subcut DAILY 0 02/18/25 02/18/25 insulin 100 unit/mL subcutaneous pen (Humulin 70/30 U-100 KwikPen) multivitamin 1 tab PO DAILY 02/18/2501/22 Previous Rx's ?Medication ?Instructions ?Recorded hydralazine 25 mg tablet 25 mg PO BID 90 days #180 ta bs 09/16/23 omeprazole 20 mg capsule,delayed 20 mg PO DAILY@0630 # 90 caps 03/20/24 release fenofibrate 160 mg tablet 160 mg PO DAILY #90 tabs allopurinol 100 mg tablet 100 mg PO DAILY #90 tabs 07/16 ergocalciferol (vitamin D2) 1,250 1,250 mcg PO Q14D #6 0 caps 07/13/24 mcg (50,000 unit) capsule apixaban 2.5 mg tablet (Eliquis) 2.5 mg PO BID #180 ta bs 09/29/24 diltiazem HCl 120 mg 120 mg PO DAILY #90 caps capsule,extended release 24 hr Allergies Allergy/AdvReac Type Severity Reaction Status Date / Time codeine (CODEINE) Allergy Intermediate BACK PAIN Verified 02/18/25 13:33 pollen extracts (POLLEN) Allergy Mild SINUS Verified 02/18/25 13:33 IRRITATION metoprolol AdvReac Intermediate Hallucinati Verified 02/18/25 13:33 ons Review of Systems 2 Constitutional: Constitutional: Reports no additional constitutional complaints, Reports chills, Denies fever(s), Denies night sweats and Reports weakness Eyes: Eyes: Reports no additional eye complaints, Denies blurry vision, Denies change in vision, Denies diplopia, Denies eye discharge, Denies loss of vision and Denies eye pain ENT: Denies dizziness Cardiovascular: Cardiovascular: Reports no additional cardiovascular complaints, Denies chest pain, Denies lightheadedness, Denies Loss of Consciousness and Denies dyspnea Respiratory: Respiratory: Reports no additional respiratory complaints, Reports cough and Denies dyspnea Gastrointestinal: Gastrointestinal: Reports no additional gastrointestinal complaints, Denies abdominal pain, Denies melena, Denies hematochezia, Denies change in bowel habits, Denies change in stool character and Reports diarrhea Genitourinary: Genitourinary: Denies hematuria, Denies urinary frequency, Denies dysuria, Denies urinary incontinence, Denies urinary hesitancy and Denies urinary urgency Musculoskeletal: Musculoskeletal: Reports no additional musculoskeletal complaints, Denies numbness and Denies tingling Neurologic: Denies dizziness, Denies loss of vision, Denies numbness, Denies tingling and Reports weakness Psychiatric: Psychiatric: Reports no additional psychiatric complaints Endocrine: Endocrine: Reports no additional endocrine complaints Hematologic/Lymphatic: Hematologic/Lymphatic: Reports no additional hematologic/lymphatic complaints Allergic/Immunologic: Allergic/Immunologic: Reports no additional allergic/immunologic complaints PMFSH Past Medical History Attestation statement: The following information was validated with the patient. Source: old records reviewed and nursing notes reviewed Medical History Hyperlipidemia CKD (chronic kidney disease) stage 4, GFR 15-29 ml/min Atrial fibrillation Osteomyelitis Gout Anemia Hx of type A viral hepatitis Obesity Diabetes mellitus Surgical History History of foot surgery History of surgical removal of skin lesion History of biopsy History of excision of lesion H/O varicose vein ligation History of cholecystectomy Family History Family History Father Gastric cancer Mother Acute CVA (cerebrovascular accident) Diabetes Brother Colon cancer Social History Social History Household Members: Children Housing: House Do you presently have visiting nurse or other home services: Yes Alcohol intake: never Patient Tobacco Use Status: Never used Tobacco Smoked in Last 30 Days: No e-Cigarette/Vaping Use: Never Used Second Hand Smoke Exposure: No Use of substances other than those prescribed or required for medical reasons: No Advance Directives: Yes Advance Directives on File: Yes Advance Directives Date on File: 07/16/21 service: No Current occupational status: retired Cognitive needs: Yes (walker ) Hearing needs: No Vision needs: Yes Physical Exam ED Vital Signs: Vital Signs - 24 hr 02/18/25 13:29 02/18/25 15:33 Temperature 98.2 F Pulse Rate 86 85 Respiratory Rate 18 18 Blood Pressure 138/57 L 159/65 H Pulse Oximetry 97 98 Oxygen Delivery Method Room Air Room Air BMI result Body Mass Index 35.6 Const General: cooperative, no acute distress, alert and awake Nutritional Appearance: well nourished Orientation/consciousness: patient oriented x3 HENMT Head: Yes normal to inspection and Yes atraumatic Ears: hearing grossly normal bilaterally and external ears normal General nose exam: Normal external nose present, no nasal discharge noted and no epistaxis Face and sinus: Yes normal facial exam, No abrasion and No laceration Mouth: Normal oral and palatal mucosa present, no drooling and no muffled voice Eyes General: appearance normal, both eyes and all related structures Periorbital: periorbital findings normal Eyelids: Yes eyelids normal Conjunctivae: conjunctivae normal Pupils: Equal, round and reactive pupils present EOM: EOMs intact bilaterally Neck Neck: Yes normal visual inspection, Yes full ROM and Yes no lymphadenopathy Resp Effort & Inspection: normal respiratory effort and able to speak in complete sentences Neuro General: patient oriented x3, moves all extremities and CN's II-XI intact bilaterally Cranial nerves: Yes Equal, round and reactive pupils present Cognition (Neuro): normal cognition Extrem Other: bilateral lower leg swelling right foot swelling - chronic per the patient right lower leg redness - chronic per the patient General: Yes full ROM and Yes capillary refill normal Psych Appearance: grossly normal Mental Status: mental status grossly normal Affect: normal affect Attitude: cooperative Thought process: Normal thought process present Thought content: Normal thought content present Insight: Good insight present (Psych) Medications Administered Generic Name Dose Route Start Last Admin Trade Name Freq PRN Reason Stop Dose Admin Doxycycline Monohydrate 100 mg 02/18/25 17:00 02/18/25 17:08 Doxycycline Monohydrate 100 Mg Capsule PO 100 mg Q12H IFEANYI Administration Insulin Human Lispro 0 unit 02/18/25 16:30 02/18/25 17:20 Insulin Lispro 100 Unit/Ml 3 Ml Vial SUBCUT Not Given QIDACHS IFEANYI Protocol Sodium Chloride 3 ml 02/18/25 16:00 02/18/25 17:19 0.9 % Sodium Chloride Flush 3 Ml Syringe IVFLUSH Not Given QSHIFT IFEANYI Discontinued Medications Generic Name Dose Route Start Last Admin Trade Name Freq PRN Reason Stop Dose Admin Ceftriaxone Sodium 1 gm 02/18/25 14:01 02/18/25 15:03 Ceftriaxone Sodium 1 Gm Vial IVPUSH 02/18/25 14:02 1 gm ONCE ONE Administration Magnesium Sulfate/Dextrose 1 gm in 100 mls @ 100 mls/hr 02/18/25 15:17 02/18/25 17:20 Magnesium Sulfate/D5w IV 02/18/25 16:16 Infused ONCE ONE Infusion Medical Decision Making Medical Decision Making MDM Narrative: Patient is an 89 year old assigned female at with a history of hyperlipidemia, DM, CHF, CKD stage 4, atrial fib on Eliquis, and HTN presenting to the emergency department today with a cough, weakness, chills, and diarrhea. Patient's physical exam was as noted in the physical exam portion of this note. Patient's blood work showed a WBC 11.0 with a left shift of 84.8%, BUN of 42, CR 2.37 (last one here was 1.98, last one at [facility] 2.06), and magnesium of 1.5. Patient's urine showed no acute process. Patient's EKG was unremarkable. Patient's chest x-ray showed no acute process. Patient's clinical presentation is most consistent with hypomagnsemia and acute kidney injury in the setting of chronic kidney disease. I spoke with the hospitalist team who agreed to admission. Patient's clinical presentation is not consistent with sepsis (@1520). I explained my physical exam findings as well as all test results to the patient. I answered all questions asked by the patient. Patient verbalized agreement and understanding with this treatment plan and admission. Differential Diagnosis Differential Diagnoses: The differential diagnosis associated with the presentation includes BARB Hypomagensemia Viral illness Admission/Observation Consideration of admission/observation: Escalation of care including admission/observation considered Patient admitted as noted in the MDM Rationale portion of this note. Consult Healthcare Provider Management of the patient was discussed with: Hospitalist (agreed to admission as noted in the MDM Rationale portion of this note. ) Lab Data [facility] Lab Attestation statement: I reviewed the patient's lab results. My interpretation of these results are in the MDM Rationale portion of this note. 02/18/25 13:51 02/18/25 13:51 Labs: Lab Results 02/18/25 02/18/25 02/18/25 Range/Units 13:51 13:52 14:30 WBC 11.0 H (4.8-10.8) X10*3/uL RBC 3.43 L (4.20-5.50) X10*6/uL Hgb 9.6 L (12.0-16.0) g/dl Hct 29.8 L (37.0-47.0) % MCV 86.9 (80.0-98.0) fL MCH 28.0 (27.0-33.0) pg MCHC 32.2 (31.0-35.0) g/dl RDW 18.5 H (11.0-16.0) % Plt Count 236 (160-400) X10*3/uL MPV 12.4 H (9.4-12.3) fL Immature Gran % (Auto) 0.4 (0.0-0.4) % Neut % (Auto) 84.8 H (45-73) % Lymph % (Auto) 8.0 L (20-40) % [place] % (Auto) 5.1 (2-11) % Eos % (Auto) 1.5 (0-4) % Baso % (Auto) 0.2 (0-2) % Lymph # (Auto) 0.9 L (1.2-4.9) X10*3/uL [place] # (Auto) 0.6 (0.1-1.2) X10*3/uL Eos # (Auto) 0.2 (0.0-0.4) X10*3/uL Baso # (Auto) 0.0 (0.0-0.2) X10*3/uL Abs Immat Gran (auto) 0.04 H (0.00-0.03) X10*3/uL Absolute Neuts (auto) 9.3 H (2.0-8.3) x10*3/uL Absolute Nucleated RBC 0.000 (0.0-0.012) X10*3/uL Nucleated RBC % (auto) 0.0 (0.0-0.2) /100WBC Sodium 144 (135-145) mmol/L Potassium 4.3 (3.3-5.1) mmol/L Chloride 112 H (96-108) mmol/L Carbon Dioxide 23 (22-29) mmol/L Anion Gap 13 (12-20) BUN 42 H (9-16) mg/dL Creatinine 2.37 H (0.5-1.4) mg/dL Estim Creat Clear Calc 18.5 Estimated GFR 19 Random Glucose 172 H (60-115) mg/dL Lactic Acid 1.1 (0.5-2.0) mmol/L Calcium 9.2 D (8.4-10.2) mg/dL Magnesium 1.5 L (1.6-2.6) mg/dL Total Bilirubin 0.4 (0.0-1.0) mg/dL AST 20 (5-31) U/L ALT 9 (0-31) U/L Alkaline Phosphatase 63 (39-117) U/L Troponin I High Sens 16.7 (<3.5-17.0) ng/L B-Natriuretic Peptide 157 H (<100) pg/mL Total Protein 6.3 L (6.5-8.0) g/dL Albumin 3.4 L (3.5-5.0) g/dL Urine Color Urine Appearance Urine pH (5.0-9.0) Ur Specific [place] (1.005-1.025) Urine Protein (Neg-Trace) mg/dL Urine Glucose (UA) (Negative) mg/dL Urine Ketones (Negative) mg/dL Urine Blood (Negative) Urine Nitrite (Negative) Ur Leukocyte Esterase (Negative) Urine RBC (0-2) /HPF Urine WBC (0-5) /HPF Ur Squamous Epith Cells (0-2) /HPF Urine Bacteria (None Seen) Hyaline Casts (0-2) /LPF Influenza Type A (PCR) NEGATIVE (Negative) Influenza Type B (PCR) NEGATIVE (Negative) RSV RNA Qual (PCR) NEGATIVE (Negative) SARS-CoV-2 RNA (RT-PCR) NEGATIVE (Negative) 02/18/25 Range/Units 15:36 WBC (4.8-10.8) X10*3/uL RBC (4.20-5.50) X10*6/uL Hgb (12.0-16.0) g/dl Hct (37.0-47.0) % MCV (80.0-98.0) fL MCH (27.0-33.0) pg MCHC (31.0-35.0) g/dl RDW (11.0-16.0) % Plt Count (160-400) X10*3/uL MPV (9.4-12.3) fL Immature Gran % (Auto) (0.0-0.4) % Neut % (Auto) (45-73) % Lymph % (Auto) (20-40) % [place] % (Auto) (2-11) % Eos % (Auto) (0-4) % Baso % (Auto) (0-2) % Lymph # (Auto) (1.2-4.9) X10*3/uL [place] # (Auto) (0.1-1.2) X10*3/uL Eos # (Auto) (0.0-0.4) X10*3/uL Baso # (Auto) (0.0-0.2) X10*3/uL Abs Immat Gran (auto) (0.00-0.03) X10*3/uL Absolute Neuts (auto) (2.0-8.3) x10*3/uL Absolute Nucleated RBC (0.0-0.012) X10*3/uL Nucleated RBC % (auto) (0.0-0.2) /100WBC Sodium (135-145) mmol/L Potassium (3.3-5.1) mmol/L Chloride (96-108) mmol/L Carbon Dioxide (22-29) mmol/L Anion Gap (12-20) BUN (9-16) mg/dL Creatinine (0.5-1.4) mg/dL Estim Creat Clear Calc Estimated GFR Random Glucose (60-115) mg/dL Lactic Acid (0.5-2.0) mmol/L Calcium (8.4-10.2) mg/dL Magnesium (1.6-2.6) mg/dL Total Bilirubin (0.0-1.0) mg/dL AST (5-31) U/L ALT (0-31) U/L Alkaline Phosphatase (39-117) U/L Troponin I High Sens (<3.5-17.0) ng/L B-Natriuretic Peptide (<100) pg/mL Total Protein (6.5-8.0) g/dL Albumin (3.5-5.0) g/dL Urine Color Yellow Urine Appearance Clear Urine pH 7.0 (5.0-9.0) Ur Specific [place] 1.015 (1.005-1.025) Urine Protein >=1000 (4+) H (Neg-Trace) mg/dL Urine Glucose (UA) Negative (Negative) mg/dL Urine Ketones Negative (Negative) mg/dL Urine Blood Negative (Negative) Urine Nitrite Negative (Negative) Ur Leukocyte Esterase Negative (Negative) Urine RBC 0-2 (0-2) /HPF Urine WBC 0-5 (0-5) /HPF Ur Squamous Epith Cells 0-2 (0-2) /HPF Urine Bacteria None Seen (None Seen) Hyaline Casts 3-5 (0-2) /LPF Influenza Type A (PCR) (Negative) Influenza Type B (PCR) (Negative) RSV RNA Qual (PCR) (Negative) SARS-CoV-2 RNA (RT-PCR) (Negative) Independent Interpretation I performed an independent interpretation of an: EKG and Plain X-Ray Interpretation: My interpretation is in agreement with the radiologist's impression of this imaging study. L CLINICAL HISTORY: cough 1 view chest Comparison: CR/SR - XR CHEST 1V - 12/21/23 12:24 EDT Findings: Cardiac and mediastinal contours are normal. Mild interstitial prominence with scattered peribronchial thickening. No focal consolidation. No effusion. No pneumothorax. No acute osseous finding. Impression: Mild interstitial prominence with scattered peribronchial thickening. No focal consolidation. This document has been electronically signed by: Abdiaziz Bonilla MD on 02/18/2025 15:34:34 Dictated By: Abdiaziz Bonilla MD Signed By: Electronically signed by Abdiaziz Bonilla MD 02/18/25 1535 I independently interpreted this EKG and am in agreement with the below findings: Vent. Rate: 87 BPM Atrial Rate: * BPM P-R Int: * ms QRS Dur: 92 ms QT Int: 374 ms P-R-T Axes: * -13 27 degrees QTcB Int: 450 ms Atrial fibrillation Low voltage QRS Inferior infarct , age undetermined Cannot rule out Anterior infarct (cited on or before 29-Nov-2006) When compared with ECG of 18-Dec-2023 20:13, Inferior infarct is now Present Nonspecific T wave abnormality no longer evident in Lateral leads DD/ 1410 Radiology Impression Discussion of test interpretation with radiology: I have reviewed the radiologist's reading. Independent Historian Clinical information obtained from an independent historian. History obtained from or confirmed by: EMS (EMS provided additional history and confirmed the history provided by the patient. ) Critical Care Time Critical Care Time Critical Care Time: Yes Total Critical Care Time: 34 Attestation: I spent 34 minutes of Critical Care Time with this patient. This does not include time spent on separately reported billable procedures. Discharge Plan Discharge Clinical Impression: BARB (acute kidney injury), Hypomagnesemia Patient Disposition: Admitted As Inpatient
[2025-02-18 13:57] LABS: MANUAL DIFF FLAG NO
[2025-02-18 13:58] LABS: Hematocrit 29.8 % (37.0-47.0); Hemoglobin 9.6 g/dl (12.0-16.0); Imm Gran Abs Auto 0.04 X10*3/uL (0.00-0.03); Imm Gran Pct Auto 0.4 % (0.0-0.4); Lymphocytes Absolute Auto 0.9 X10*3/uL (1.2-4.9); Mean Corpuscular HGB Conc 32.2 g/dl (31.0-35.0); Mean Corpuscular Hemoglobin 28.0 pg (27.0-33.0); Mean Corpuscular Volume 86.9 fL (80.0-98.0); NRBC Abs Auto 0.000 X10*3/uL (0.0-0.012); NRBC Pct Auto 0.0 /100WBC (0.0-0.2); Platelet Count 236 X10*3/uL (160-400); Red Blood Count 3.43 X10*6/uL (4.20-5.50); White Blood Count 11.0 X10*3/uL (4.8-10.8)
[2025-02-18 14:12] LABS: Alanine Aminotransferase 9 U/L (0-31); Albumin Level 3.4 g/dL (3.5-5.0); Alkaline Phosphatase 63 U/L (39-117); Anion Gap 13 (12-20); Aspartate Amino Transferase 20 U/L (5-31); Blood Urea Nitrogen 42 mg/dL (9-16); Calcium 9.2 mg/dL (8.4-10.2); Carbon Dioxide 23 mmol/L (22-29); Chloride 112 mmol/L (96-108); Creatinine Clr Calc Pharmacy 18.5; Estimated Glomerular Filt Rate 19; Magnesium 1.5 mg/dL (1.6-2.6); Potassium 4.3 mmol/L (3.3-5.1); Sodium 144 mmol/L (135-145); Total Protein 6.3 g/dL (6.5-8.0)
[2025-02-18 14:24] LABS: Troponin-I High Sensitivity 16.7 ng/L (<3.5-17.0)
[2025-02-18 14:37] LABS: Resp Syncy Virus RNA Qual PCR NEGATIVE (Negative); SARS COV2 PCR INHOUSE NEGATIVE (Negative)
[2025-02-18 15:33] VITALS: BP 159/65; PULSE 85; RESP 18; O2SAT 98
--- NOTE | 2025-02-18 15:34 | PC.NURSE ---
assumed care of patient, straight cathed for urine, changed and reposiotned
[2025-02-18 15:44] LABS: Appearance Urine Clear; Glucose Urine UA Negative (Negative); PH 7.0 (5.0-9.0); Specific Gravity - Urine 1.015 (1.005-1.025); UMIC TRIGGER UACC YES
--- NOTE | 2025-02-18 15:59 | PM.IMHP ---
History of Present Illness Date of Service: 02/18/25 Chief Complaint: cough 89yo F with CKD4, pAF on apixaban, HF with recovered EF, DM2, HTN, and HLD but no chronic lung disease presented to the [facility] with 3 days of cough productive of thin mucus and generalized weakness and fatigue. One episode of diarrhea. NO abdominal pain, chest pain, fever, lightheadedness, or dizziness. She was found to have some degree of superimposed BARB with SCr 2.37 [baseline around 2], slightly low magnesium at 1.5, and CXR with some interstitial prominence and pericbronchial thickening. BUN high at 42. WBCs up to 11 with 85% PMNs. She was given IV ceftriaxone and IV magnesium sulfate. Review of Systems Review of Systems: Yes all other systems are reviewed and are negative [facility] Medical History Hyperlipidemia CKD (chronic kidney disease) stage 4, GFR 15-29 ml/min Atrial fibrillation Osteomyelitis Gout Anemia Hx of type A viral hepatitis Obesity Diabetes mellitus Family History Father Gastric cancer Mother Acute CVA (cerebrovascular accident) Diabetes Brother Colon cancer Surgical History History of foot surgery History of surgical removal of skin lesion History of biopsy History of excision of lesion H/O varicose vein ligation History of cholecystectomy Social History Household Members: Children Housing: House Do you presently have visiting nurse or other home services: Yes Alcohol intake: never Patient Tobacco Use Status: Never used Tobacco Smoked in Last 30 Days: No e-Cigarette/Vaping Use: Never Used Second Hand Smoke Exposure: No Use of substances other than those prescribed or required for medical reasons: No Advance Directives: Yes Advance Directives on File: Yes Advance Directives Date on File: 07/16/21 service: No Current occupational status: retired Cognitive needs: Yes (walker ) Hearing needs: No Vision needs: Yes Meds Allergies Allergy/AdvReac Type Severity Reaction Status Date / Time codeine (CODEINE) Allergy Intermediate BACK PAIN Verified 02/18/25 13:33 pollen extracts (POLLEN) Allergy Mild SINUS Verified 02/18/25 13:33 IRRITATION metoprolol AdvReac Intermediate Hallucinati Verified 02/18/25 13:33 ons Active Medications: Current Medications Acetaminophen (Acetaminophen 325 Mg Tablet) 650 mg PO Q6H PRN PRN Reason: Pain, Mild 1-3,fever,headache Apixaban (Apixaban 2.5 Mg Tablet) 2.5 mg PO BID [facility] Calcium Carbonate (Calcium Carbonate 750 Mg Tab.Chew) 750 mg PO Q4H PRN PRN Reason: Heartburn Ceftriaxone Sodium (Ceftriaxone Sodium 1 Gm Vial) 1 gm IVPUSH Q24H IFEANYI Dextrose (Dextrose 50 % 25 Gm/50 Ml Syringe) 25 gm IVPUSH Q15M PRN; Protocol PRN Reason: per Hypoglycemia Standing Ord. Diltiazem HCl (Diltiazem Hcl Cd 120 Mg Cap.Er.Deg) 120 mg PO DAILY [facility]; Protocol Doxycycline Monohydrate (Doxycycline Monohydrate 100 Mg Capsule) 100 mg PO Q12H [facility] Glucose (Glucose Gel 15 Gm Gel..Gram.) 15 gm PO Q15M PRN; Protocol PRN Reason: per Hypoglycemia Standing Ord. Hydralazine HCl (Hydralazine Hcl 25 Mg Tablet) 25 mg PO BID [facility]; Protocol Magnesium Sulfate/Dextrose (Magnesium Sulfate/D5w) 1 gm in 100 mls @ 100 mls/hr IV ONCE ONE Stop: 02/18/25 16:16 Last Admin: 02/18/25 15:41 Dose: 100 mls/hr Insulin Human Lispro (Insulin Lispro 100 Unit/Ml 3 Ml Vial) 0 unit SUBCUT QIDACHS [facility]; Protocol Magnesium Hydroxide (Milk Of Magnesia 30 Ml Oral.Susp) 30 ml PO DAILY PRN PRN Reason: Constipation Melatonin (Melatonin 3 Mg Tablet) 6 mg PO BEDTIME PRN PRN Reason: Insomnia Omeprazole (Omeprazole 20 Mg Capsule.Dr) 20 mg PO DAILY@0630 [facility] Ondansetron HCl (Ondansetron Hcl 4 Mg/2 Ml Vial) 4 mg IVPUSH Q8H PRN PRN Reason: Nausea and Vomiting Sodium Chloride (0.9 % Sodium Chloride Flush 3 Ml Syringe) 3 ml IVFLUSH QSHIFT [facility] Home Medications ?Medication ?Instructions ?Recorded ?Confirmed ?Last Taken ?Type acetaminophen 500 mg tablet 500 mg PO Q4H PRN Moderate Pain 12/19/23 01/18/25 Unknown History (Scale Score 5-6) ammonium lactate 12 % lotion 1 appl topical .QOD PRN Dry Skin 12/19/23 01/18/25 Unknown History Physical Exam Vital Signs and Narrative: Vital Signs: Last Vital Signs Temp 98.2 F 02/18/25 13:29 Pulse 85 02/18/25 15:33 Resp 18 02/18/25 15:33 BP 159/65 H 02/18/25 15:33 Pulse Ox 98 02/18/25 15:33 O2 Del Method Room Air 02/18/25 15:33 BMI result Body Mass Index 35.6 Gen: in no acute distress HEENT: sclera anicteric, moist mucus membranes Neck: supple, no JVD Lungs: diminished throughout Heart: regular rate and rhythm, no murmurs Abd: soft, non-tender, non-distended Ext: RLE>LLE edema that is chronic Skin: warm/well-perfused Neuro: alert and oriented x3, no focal findings Psych: appropriate affect Results Labs 02/18/25 13:51 02/18/25 13:51 Labs: Laboratory Results - last 24 hr 02/18/25 02/18/25 02/18/25 13:51 13:52 14:30 MCV 86.9 MCH 28.0 MCHC 32.2 RDW 18.5 H Plt Count 236 MPV 12.4 H Immature Gran % (Auto) 0.4 Neut % (Auto) 84.8 H Lymph % (Auto) 8.0 L [place] % (Auto) 5.1 Eos % (Auto) 1.5 Baso % (Auto) 0.2 Lymph # (Auto) 0.9 L [place] # (Auto) 0.6 Eos # (Auto) 0.2 Baso # (Auto) 0.0 Abs Immat Gran (auto) 0.04 H Absolute Neuts (auto) 9.3 H Absolute Nucleated RBC 0.000 Nucleated RBC % (auto) 0.0 Anion Gap 13 Estim Creat Clear Calc 18.5 Estimated GFR 19 Random Glucose 172 H Lactic Acid 1.1 Calcium 9.2 D Magnesium 1.5 L Total Bilirubin 0.4 AST 20 ALT 9 Alkaline Phosphatase 63 Troponin I High Sens 16.7 Total Protein 6.3 L Albumin 3.4 L Urine Color Urine Appearance Urine pH Ur Specific [place] Urine Protein Urine Glucose (UA) Urine Ketones Urine Blood Urine Nitrite Ur Leukocyte Esterase Urine RBC Urine WBC Ur Squamous Epith Cells Urine Bacteria Hyaline Casts Influenza Type A (PCR) NEGATIVE Influenza Type B (PCR) NEGATIVE RSV RNA Qual (PCR) NEGATIVE SARS-CoV-2 RNA (RT-PCR) NEGATIVE 02/18/25 15:36 MCV MCH MCHC RDW Plt Count MPV Immature Gran % (Auto) Neut % (Auto) Lymph % (Auto) [place] % (Auto) Eos % (Auto) Baso % (Auto) Lymph # (Auto) [place] # (Auto) Eos # (Auto) Baso # (Auto) Abs Immat Gran (auto) Absolute Neuts (auto) Absolute Nucleated RBC Nucleated RBC % (auto) Anion Gap Estim Creat Clear Calc Estimated GFR Random Glucose Lactic Acid Calcium Magnesium Total Bilirubin AST ALT Alkaline Phosphatase Troponin I High Sens Total Protein Albumin Urine Color Yellow Urine Appearance Clear Urine pH 7.0 Ur Specific [place] 1.015 Urine Protein >=1000 (4+) H Urine Glucose (UA) Negative Urine Ketones Negative Urine Blood Negative Urine Nitrite Negative Ur Leukocyte Esterase Negative Urine RBC 0-2 Urine WBC 0-5 Ur Squamous Epith Cells 0-2 Urine Bacteria None Seen Hyaline Casts 3-5 Influenza Type A (PCR) Influenza Type B (PCR) RSV RNA Qual (PCR) SARS-CoV-2 RNA (RT-PCR) Assessment and Plan (1) Pneumonia: Status: Acute Plan 89yo F with CKD4, pAF on apixaban, HF with recovered EF, DM2, HTN, and HLD but no chronic lung disease presenting with cough productive of thin mucus and generalized weakness and fatigue. Found to have interstitial prominence/peribronchial thickening, likely bronchopneumonia; also ABRB/CKD4 and hypomagnesemia. pneumonia - admit to telemetry, give ceftriaxone + doxycycline, trend PCT, follow BCx, check MRSA swab and resp pathogen panel and urinary antigens for Legionella and pneumococcus. Hold off on CT chest for now as not hypoxic nor septic. hypoMg - repleting; recheck level tomorrow AM BARB/CKD4 - appears slightly dry; will give 250 cc NS and recheck BMP tomorrow AM DM2- marilu-dose lispro to replace 70/30 for now pAF- apixaban, diltiazem HTN- diltizem, hydralazine HLD- fenofibrate gout- allopurinol VTE ppx- apixaban dispo- PT eval code- full code but she does not want HD I anticipate that the patient will stay at least 2 midnights as an inpatient in the hospital due to the above reasons. It is neither reasonable nor safe to care for them in a less acute setting. Quality Stroke Does the patient have a stroke diagnosis?: No VTE Prior VTE?: No VTE Risk Level:: Medical - moderate - high VTE Device Contraindication: N/A - Device Ordered VTE Drug Contraindication: N/A - Med Ordered
[2025-02-18 16:14] LABS: B Type Natriuretic Peptide 157 pg/mL (<100)
--- NOTE | 2025-02-18 16:18 | PHA.MEDREC ---
Pharmacy Consult ? Medication Reconciliation Pharmacy has completed the medication reconciliation. Spoke to patient at bedside, confused about some doses of medications but able to say yes or no and when/how often she takes them.
[2025-02-18 17:11] VITALS: BP 130/53; PULSE 77; RESP 18; TEMP 36.6; O2SAT 97
--- NOTE | 2025-02-18 17:22 | PC.NURSE ---
per provider patient to receive only 250mls maintenance fluids
[2025-02-18 17:29] LABS: Glucose, Whole Blood 103 mg/dL (60-115)
[2025-02-18 17:32] LABS: Procalcitonin 0.07 ng/mL
[2025-02-18 19:16] VITALS: BP 143/56; PULSE 86; RESP 24; O2SAT 95
[2025-02-18 21:53] VITALS: BMI 35.6
[2025-02-18 22:00] VITALS: BP 152/70; PULSE 76; RESP 16; TEMP 36.7; O2SAT 97
[2025-02-18 22:10] LABS: Glucose, Whole Blood 239 mg/dL (60-115)
[2025-02-18] MEDS: 0.9 % Sodium Chloride Flush 3 ML SYRINGE IVFLUSH (22:30)
[2025-02-19 03:50] VITALS: BP 153/70; PULSE 85; RESP 16; TEMP 36.7; O2SAT 97
[2025-02-19 07:07] LABS: Hematocrit 30.7 % (37.0-47.0); Hemoglobin 9.7 g/dl (12.0-16.0); Mean Corpuscular HGB Conc 31.6 g/dl (31.0-35.0); Mean Corpuscular Hemoglobin 27.7 pg (27.0-33.0); Mean Corpuscular Volume 87.7 fL (80.0-98.0); NRBC Abs Auto 0.000 X10*3/uL (0.0-0.012); NRBC Pct Auto 0.0 /100WBC (0.0-0.2); Platelet Count 209 X10*3/uL (160-400); Red Blood Count 3.50 X10*6/uL (4.20-5.50); White Blood Count 10.4 X10*3/uL (4.8-10.8)
[2025-02-19 07:10] VITALS: BP 126/62; PULSE 75; RESP 18; TEMP 36.4; O2SAT 97
[2025-02-19 07:17] LABS: Anion Gap 12 (12-20); Blood Urea Nitrogen 37 mg/dL (9-16); Calcium 8.9 mg/dL (8.4-10.2); Carbon Dioxide 24 mmol/L (22-29); Chloride 110 mmol/L (96-108); Creatinine Clr Calc Pharmacy 20.6; Estimated Glomerular Filt Rate 22; Magnesium 1.6 mg/dL (1.6-2.6); Potassium 3.8 mmol/L (3.3-5.1); Sodium 142 mmol/L (135-145)
[2025-02-19 07:19] LABS: Glucose, Whole Blood 158 mg/dL (60-115)
[2025-02-19 08:06] LABS: Iron 19 mcg/dL (30-160); Percent Iron Saturation 9 % (15-50); Total Iron Binding Capacity 206 mcg/dL (228-428); Unsaturated Iron Binding 187 ug/dL
[2025-02-19 08:12] LABS: Reticulocytes Absolute 0.071 X10*6/uL (0.026-0.095)
[2025-02-19 08:27] LABS: Ferritin 81 ng/mL (10-250)
[2025-02-19] MEDS: dilTIAZem HCL CD 120 MG CAP.ER.DEG PO (08:37)
[2025-02-19] MEDS: 0.9 % Sodium Chloride Flush 3 ML SYRINGE IVFLUSH ×3 (08:44→20:55)
--- NOTE | 2025-02-19 08:56 | MHC.CM.PN ---
CM met with Patient at bedside and addressed IMM with her, providing Patient with the original and a copy has been placed on the chart. Patient lives in a house with her Son/HCP/Caregiver/Matt and she has both a ramp and a walker. Patient will benefit from a PT Eval to assist with disposition (home/new VNA VS STR); CM has initiated and will follow for dc planning. PCP/WASTE EXAMINER is Yosi Anand and Patient typically takes the shuttle for transport to home.
[2025-02-19 09:05] VITALS: PULSE 75; O2SAT 97
--- NOTE | 2025-02-19 10:31 | HO.PM.IMPN ---
Subjective Subjective Date of Service: 02/19/25 Interval History: cough improving, SCr better as well Review of Systems Review of Systems: Yes all other systems are reviewed and are negative Physical Exam Vital Signs: Vital Signs: Last Vital Signs Temp 97.5 F 02/19/25 07:10 Pulse 75 02/19/25 09:05 Resp 18 02/19/25 07:10 BP 126/62 02/19/25 07:10 Pulse Ox 97 02/19/25 09:05 O2 Del Method Room Air 02/19/25 07:10 BMI result Body Mass Index 35.6 Gen: in no acute distress HEENT: sclera anicteric, moist mucus membranes Neck: supple, no JVD Lungs: diminished throughout Heart: regular rate and rhythm, no murmurs Abd: soft, non-tender, non-distended Ext: RLE>LLE edema that is chronic Skin: warm/well-perfused Neuro: alert and oriented x3, no focal findings Psych: appropriate affect Objective Data Active Medications Acetaminophen (Acetaminophen 325 Mg Tablet) 650 mg PO Q6H PRN PRN Reason: Pain, Mild 1-3,fever,headache Allopurinol (Allopurinol 100 Mg Tablet) 100 mg PO DAILY [facility] Last Admin: 02/19/25 08:37 Dose: 100 mg Documented By: JANETT Apixaban (Apixaban 2.5 Mg Tablet) 2.5 mg PO BID [facility] Last Admin: 02/19/25 08:38 Dose: 2.5 mg Documented By: JANETT Calcium Carbonate (Calcium Carbonate 750 Mg Tab.Chew) 750 mg PO Q4H PRN PRN Reason: Heartburn Ceftriaxone Sodium (Ceftriaxone Sodium 1 Gm Vial) 1 gm IVPUSH Q24H [facility] Dextrose (Dextrose 50 % 25 Gm/50 Ml Syringe) 25 gm IVPUSH Q15M PRN; Protocol PRN Reason: per Hypoglycemia Standing Ord. Diltiazem HCl (Diltiazem Hcl Cd 120 Mg Cap.Er.Deg) 120 mg PO DAILY [facility]; Protocol Last Admin: 02/19/25 08:37 Dose: 120 mg Documented By: JANETT Doxycycline Monohydrate (Doxycycline Monohydrate 100 Mg Capsule) 100 mg PO Q12H [facility] Last Admin: 02/19/25 05:42 Dose: 100 mg Documented By: QIANA Ergocalciferol (Ergocalciferol (Vitamin D2) 1,250 Mcg Capsule) 1,250 mcg PO Q14D [facility] Fenofibrate (Fenofibrate 160 Mg Tablet) 160 mg PO DAILY [facility] Last Admin: 02/19/25 08:37 Dose: 160 mg Documented By: JANETT Glucose (Glucose Gel 15 Gm Gel..Gram.) 15 gm PO Q15M PRN; Protocol PRN Reason: per Hypoglycemia Standing Ord. Hydralazine HCl (Hydralazine Hcl 25 Mg Tablet) 25 mg PO BID [facility]; Protocol Last Admin: 02/19/25 08:38 Dose: 25 mg Documented By: JANETT Insulin Human Lispro (Insulin Lispro 100 Unit/Ml 3 Ml Vial) 0 unit SUBCUT QIDACHS [facility]; Protocol Last Admin: 02/19/25 08:36 Dose: 2 unit Documented By: JANETT Magnesium Hydroxide (Milk Of Magnesia 30 Ml Oral.Susp) 30 ml PO DAILY PRN PRN Reason: Constipation Melatonin (Melatonin 3 Mg Tablet) 6 mg PO BEDTIME PRN PRN Reason: Insomnia Multivitamins/Vitamin C (Multivitamin Tablet) 1 tab PO DAILY [facility] Last Admin: 02/19/25 08:37 Dose: 1 tab Documented By: JANETT Omeprazole (Omeprazole 20 Mg Capsule.Dr) 20 mg PO DAILY@0630 [facility] Last Admin: 02/19/25 05:42 Dose: 20 mg Documented By: QIANA Ondansetron HCl (Ondansetron Hcl 4 Mg/2 Ml Vial) 4 mg IVPUSH Q8H PRN PRN Reason: Nausea and Vomiting Sodium Chloride (0.9 % Sodium Chloride Flush 3 Ml Syringe) 3 ml IVFLUSH QSHIFT [facility] Last Admin: 02/19/25 08:44 Dose: 3 ml Documented By: JANETT Labs 02/19/25 06:04 02/19/25 06:04 Labs: Laboratory Results - last 24 hr 02/18/25 02/18/25 02/18/25 13:51 13:52 14:30 MCV 86.9 MCH 28.0 MCHC 32.2 RDW 18.5 H Plt Count 236 MPV 12.4 H Immature Gran % (Auto) 0.4 Neut % (Auto) 84.8 H Lymph % (Auto) 8.0 L [place] % (Auto) 5.1 Eos % (Auto) 1.5 Baso % (Auto) 0.2 Lymph # (Auto) 0.9 L [place] # (Auto) 0.6 Eos # (Auto) 0.2 Baso # (Auto) 0.0 Abs Immat Gran (auto) 0.04 H Absolute Neuts (auto) 9.3 H Absolute Nucleated RBC 0.000 Nucleated RBC % (auto) 0.0 Absolute Retic Percent Retic Immature Retic Fraction Retic Hgb Equivalent Anion Gap 13 Estim Creat Clear Calc 18.5 Estimated GFR 19 POC Glucose Random Glucose 172 H Lactic Acid 1.1 Calcium 9.2 D Magnesium 1.5 L Iron TIBC % Saturation Unsat Iron Binding Ferritin Total Bilirubin 0.4 AST 20 ALT 9 Alkaline Phosphatase 63 Lactate Dehydrogenase Troponin I High Sens 16.7 B-Natriuretic Peptide 157 H Total Protein 6.3 L Albumin 3.4 L Procalcitonin 0.07 Urine Color Urine Appearance Urine pH Ur Specific [place] Urine Protein Urine Glucose (UA) Urine Ketones Urine Blood Urine Nitrite Ur Leukocyte Esterase Urine RBC Urine WBC Ur Squamous Epith Cells Urine Bacteria Hyaline Casts Influenza Type A (PCR) NEGATIVE Influenza Type B (PCR) NEGATIVE RSV RNA Qual (PCR) NEGATIVE SARS-CoV-2 RNA (RT-PCR) NEGATIVE 02/18/25 02/18/25 02/18/25 15:36 17:16 22:02 MCV MCH MCHC RDW Plt Count MPV Immature Gran % (Auto) Neut % (Auto) Lymph % (Auto) [place] % (Auto) Eos % (Auto) Baso % (Auto) Lymph # (Auto) [place] # (Auto) Eos # (Auto) Baso # (Auto) Abs Immat Gran (auto) Absolute Neuts (auto) Absolute Nucleated RBC Nucleated RBC % (auto) Absolute Retic Percent Retic Immature Retic Fraction Retic Hgb Equivalent Anion Gap Estim Creat Clear Calc Estimated GFR POC Glucose 103 239 H Random Glucose Lactic Acid Calcium Magnesium Iron TIBC % Saturation Unsat Iron Binding Ferritin Total Bilirubin AST ALT Alkaline Phosphatase Lactate Dehydrogenase Troponin I High Sens B-Natriuretic Peptide Total Protein Albumin Procalcitonin Urine Color Yellow Urine Appearance Clear Urine pH 7.0 Ur Specific [place] 1.015 Urine Protein >=1000 (4+) H Urine Glucose (UA) Negative Urine Ketones Negative Urine Blood Negative Urine Nitrite Negative Ur Leukocyte Esterase Negative Urine RBC 0-2 Urine WBC 0-5 Ur Squamous Epith Cells 0-2 Urine Bacteria None Seen Hyaline Casts 3-5 Influenza Type A (PCR) Influenza Type B (PCR) RSV RNA Qual (PCR) SARS-CoV-2 RNA (RT-PCR) 02/19/25 02/19/25 02/19/25 06:04 06:04 06:04 MCV 87.7 MCH 27.7 MCHC 31.6 RDW 18.6 H Plt Count 209 MPV 13.5 H Immature Gran % (Auto) Neut % (Auto) Lymph % (Auto) [place] % (Auto) Eos % (Auto) Baso % (Auto) Lymph # (Auto) [place] # (Auto) Eos # (Auto) Baso # (Auto) Abs Immat Gran (auto) Absolute Neuts (auto) Absolute Nucleated RBC 0.000 Nucleated RBC % (auto) 0.0 Absolute Retic 0.071 Cancelled Percent Retic 2.0 H Cancelled Immature Retic Fraction 23.7 H Retic Hgb Equivalent Anion Gap Estim Creat Clear Calc Estimated GFR POC Glucose Random Glucose Lactic Acid Calcium Magnesium Iron TIBC % Saturation Unsat Iron Binding Ferritin Total Bilirubin AST ALT Alkaline Phosphatase Lactate Dehydrogenase Troponin I High Sens B-Natriuretic Peptide Total Protein Albumin Procalcitonin Urine Color Urine Appearance Urine pH Ur Specific [place] Urine Protein Urine Glucose (UA) Urine Ketones Urine Blood Urine Nitrite Ur Leukocyte Esterase Urine RBC Urine WBC Ur Squamous Epith Cells Urine Bacteria Hyaline Casts Influenza Type A (PCR) Influenza Type B (PCR) RSV RNA Qual (PCR) SARS-CoV-2 RNA (RT-PCR) 02/19/25 02/19/25 02/19/25 06:04 06:04 07:06 MCV MCH MCHC RDW Plt Count MPV Immature Gran % (Auto) Neut % (Auto) Lymph % (Auto) [place] % (Auto) Eos % (Auto) Baso % (Auto) Lymph # (Auto) [place] # (Auto) Eos # (Auto) Baso # (Auto) Abs Immat Gran (auto) Absolute Neuts (auto) Absolute Nucleated RBC Nucleated RBC % (auto) Absolute Retic Percent Retic Immature Retic Fraction Cancelled Retic Hgb Equivalent 30.7 Cancelled Anion Gap 12 Estim Creat Clear Calc 20.6 Estimated GFR 22 POC Glucose 158 H Random Glucose 154 H Lactic Acid Calcium 8.9 Magnesium 1.6 Iron 19 L TIBC 206 L % Saturation 9 L Unsat Iron Binding 187 Ferritin 81 Total Bilirubin AST ALT Alkaline Phosphatase Lactate Dehydrogenase 224 H Troponin I High Sens B-Natriuretic Peptide Total Protein Albumin Procalcitonin Urine Color Urine Appearance Urine pH Ur Specific [place] Urine Protein Urine Glucose (UA) Urine Ketones Urine Blood Urine Nitrite Ur Leukocyte Esterase Urine RBC Urine WBC Ur Squamous Epith Cells Urine Bacteria Hyaline Casts Influenza Type A (PCR) Influenza Type B (PCR) RSV RNA Qual (PCR) SARS-CoV-2 RNA (RT-PCR) Assessment and Plan (1) Pneumonia: Status: Acute Plan d2 for 89yo F with CKD4, pAF on apixaban, HF with recovered EF, DM2, HTN, and HLD but no chronic lung disease presenting with cough productive of thin mucus and generalized weakness and fatigue. Found to have interstitial prominence/peribronchial thickening, likely bronchopneumonia; also BARB/CKD4 and hypomagnesemia pneumonia - 02/18- ceftriaxone + doxycycline, trend PCT, follow BCx, RPP pending. Hold off on CT chest for now as not hypoxic nor septic BRAB/CKD4 - likely due to dehydration; improving after given 250 mL NS; recheck BMP tomorrow morning hypoMg- repleted DM2- marilu-dose lispro to replace 70/30 while inpt pAF- apixaban, diltiazem HTN- diltizem, hydralazine HLD- fenofibrate gout- allopurinol VTE ppx- apixaban dispo- PT eval: plan home with VNA/PT possibly tomorrow In my clinical judgment, the patient requires continued inpatient hospitalization for the following reasons: IV ABX, BARB Total time managing care of this patient today: 40 minutes. Quality Stroke Does the patient have a stroke diagnosis?: No VTE Prior VTE?: No VTE Risk Level:: Medical - moderate - high VTE Device Contraindication: N/A - Device Ordered VTE Drug Contraindication: N/A - Med Ordered
[2025-02-19 11:25] VITALS: BP 114/60; PULSE 68; RESP 18; TEMP 36.3; O2SAT 97
[2025-02-19 11:30] LABS: Glucose, Whole Blood 210 mg/dL (60-115)
[2025-02-19 14:41] LABS: Chlamydia pneumoniae PCR Not Detected (Not Detect.); Coronavirus 229E PCR Not Detected (Not Detect.); Coronavirus HKU1 PCR Not Detected (Not Detect.); Coronavirus NL63 PCR Not Detected (Not Detect.); Coronavirus OC43 PCR Not Detected (Not Detect.); RSV PCR Not Detected (Not Detect.); Rhino/Enterovirus PCR Detected (Not Detect.)
[2025-02-19 14:45] LABS: Influenza A H1 PCR Not Detected (Not Detect.); Influenza A H1-2009 PCR Not Detected (Not Detect.); Influenza A H3 PCR Not Detected (Not Detect.); SARS-CoV-2 PCR Not Detected (Not Detect.)
[2025-02-19 15:23] VITALS: BP 116/62; PULSE 67; RESP 18; TEMP 36.3; O2SAT 96
[2025-02-19 16:16] LABS: Glucose, Whole Blood 250 mg/dL (60-115)
[2025-02-19 19:48] VITALS: BP 160/50; PULSE 62; RESP 16; TEMP 36.1; O2SAT 98
[2025-02-19 21:00] LABS: Glucose, Whole Blood 177 mg/dL (60-115)
[2025-02-20] VITALS (7 sets, daily range): BP systolic 122–155; BP diastolic 38–68; PULSE 66–83; RESP 16–18; TEMP 36.2–37.2; O2SAT 96–99
[2025-02-20 07:25] LABS: Hematocrit 28.6 % (37.0-47.0); Hemoglobin 9.2 g/dl (12.0-16.0); Mean Corpuscular HGB Conc 32.2 g/dl (31.0-35.0); Mean Corpuscular Hemoglobin 27.7 pg (27.0-33.0); Mean Corpuscular Volume 86.1 fL (80.0-98.0); NRBC Abs Auto 0.000 X10*3/uL (0.0-0.012); NRBC Pct Auto 0.0 /100WBC (0.0-0.2); PLT CLUMP 1; Red Blood Count 3.32 X10*6/uL (4.20-5.50)
[2025-02-20 07:25] LABS: Glucose, Whole Blood 164 mg/dL (60-115)
[2025-02-20 07:31] LABS: Anion Gap 15 (12-20); Blood Urea Nitrogen 41 mg/dL (9-16); Calcium 8.8 mg/dL (8.4-10.2); Carbon Dioxide 23 mmol/L (22-29); Chloride 106 mmol/L (96-108); Creatinine Clr Calc Pharmacy 19.0; Estimated Glomerular Filt Rate 20; Potassium 3.9 mmol/L (3.3-5.1); Sodium 140 mmol/L (135-145)
[2025-02-20 07:42] LABS: Platelet Count 155 X10*3/uL (160-400); White Blood Count 8.6 X10*3/uL (4.8-10.8)
[2025-02-20] MEDS: Ferrous Sulfate 324 MG TABLET.DR PO (07:45)
[2025-02-20] MEDS: dilTIAZem HCL CD 120 MG CAP.ER.DEG PO (07:45)
[2025-02-20] MEDS: 0.9 % Sodium Chloride Flush 3 ML SYRINGE IVFLUSH ×3 (07:46→20:20)
[2025-02-20 08:09] LABS: Folate 15.0 ng/mL (> or = 4.0); Vitamin B12 552 pg/mL (200-900)
[2025-02-20 10:25] LABS: Chlamydia pneumoniae PCR Not Detected (Not Detect.); Coronavirus 229E PCR Not Detected (Not Detect.); Coronavirus HKU1 PCR Not Detected (Not Detect.); Coronavirus NL63 PCR Not Detected (Not Detect.); Coronavirus OC43 PCR Not Detected (Not Detect.); RSV PCR Not Detected (Not Detect.); Rhino/Enterovirus PCR Detected (Not Detect.)
[2025-02-20 10:31] LABS: SARS-CoV-2 PCR Not Detected (Not Detect.)
[2025-02-20 10:32] LABS: Influenza A H1 PCR Not Detected (Not Detect.); Influenza A H1-2009 PCR Not Detected (Not Detect.); Influenza A H3 PCR Not Detected (Not Detect.)
[2025-02-20 11:35] LABS: Glucose, Whole Blood 273 mg/dL (60-115)
--- NOTE | 2025-02-20 13:11 | P.PNIM_ITS ---
Subjective Subjective Date of Service: 02/20/25 Interval History: No acute issues overnight. Creatinine still elevated Review of Systems Denies chest pain Denies shortness of breath Denies nausea vomiting diarrhea Denies fever chills Physical Exam 2 Vital Signs: Vital Signs: Last Vital Signs Temp 98.4 F 02/20/25 12:00 Pulse 71 02/20/25 12:00 Resp 18 02/20/25 12:00 BP 132/66 02/20/25 12:00 Pulse Ox 98 02/20/25 12:00 O2 Del Method Room Air 02/20/25 12:00 BMI result Body Mass Index 35.6 Const: Other: Awake alert no acute distress Resp: Other: Clear to auscultation bilaterally no rales rhonchi or wheezes Cardio: Other: No S4; positive S1-S2; no S3 murmurs rubs or gallops GI: Other: Soft nontender nondistended normoactive bowel sounds Extrem: Other: No edema bilaterally Objective Data Active Medications Acetaminophen (Acetaminophen 325 Mg Tablet) 650 mg PO Q6H PRN PRN Reason: Pain, Mild 1-3,fever,headache Allopurinol (Allopurinol 100 Mg Tablet) 100 mg PO DAILY FORMERLY [facility], [facility] Last Admin: 02/20/25 07:46 Dose: 100 mg Documented By: IRVING Apixaban (Apixaban 2.5 Mg Tablet) 2.5 mg PO BID FORMERLY [facility], [facility]1983 Last Admin: 02/20/25 07:45 Dose: 2.5 mg Documented By: IRVING Calcium Carbonate (Calcium Carbonate 750 Mg Tab.Chew) 750 mg PO Q4H PRN PRN Reason: Heartburn Ceftriaxone Sodium (Ceftriaxone Sodium 1 Gm Vial) 1 gm IVPUSH Q24H FOR[facility], [facility] Last Admin: 02/20/25 12:15 Dose: 1 gm Documented By: IRVING Dextrose (Dextrose 50 % 25 Gm/50 Ml Syringe) 25 gm IVPUSH Q15M PRN; Protocol PRN Reason: per Hypoglycemia Standing Ord. Diltiazem HCl (Diltiazem Hcl Cd 120 Mg Cap.Er.Deg) 120 mg PO DAILY FORMERLY [facility], [facility]; Protocol Last Admin: 02/20/25 07:45 Dose: 120 mg Documented By: IRVING Doxycycline Monohydrate (Doxycycline Monohydrate 100 Mg Capsule) 100 mg PO Q12H FOR[facility], [facility] Last Admin: 02/20/25 05:46 Dose: 100 mg Documented By: CLARISSE Ergocalciferol (Ergocalciferol (Vitamin D2) 1,250 Mcg Capsule) 1,250 mcg PO Q14D FOR[facility], [facility]1983 Fenofibrate (Fenofibrate 160 Mg Tablet) 160 mg PO DAILY [facility], [facility] Last Admin: 02/20/25 07:46 Dose: 160 mg Documented By: IRVING Ferrous Sulfate (Ferrous Sulfate 324 Mg Tablet.) 324 mg PO DAILY [facility], [facility] Last Admin: 02/20/25 07:45 Dose: 324 mg Documented By: IRVING Glucose (Glucose Gel 15 Gm Gel..Gram.) 15 gm PO Q15M PRN; Protocol PRN Reason: per Hypoglycemia Standing Ord. Hydralazine HCl (Hydralazine Hcl 25 Mg Tablet) 25 mg PO BID FOR[facility], [facility]; Protocol Last Admin: 02/20/25 07:46 Dose: 25 mg Documented By: IRVING Insulin Human Lispro (Insulin Lispro 100 Unit/Ml 3 Ml Vial) 0 unit SUBCUT QIDACHS FORMERLY [facility], [facility]; Protocol Last Admin: 02/20/25 12:15 Dose: 6 unit Documented By: IRVING Magnesium Hydroxide (Milk Of Magnesia 30 Ml Oral.Susp) 30 ml PO DAILY PRN PRN Reason: Constipation Melatonin (Melatonin 3 Mg Tablet) 6 mg PO BEDTIME PRN PRN Reason: Insomnia Multivitamins/Vitamin C (Multivitamin Tablet) 1 tab PO DAILY [facility], [facility] Last Admin: 02/20/25 07:45 Dose: 1 tab Documented By: IRVING Nystatin (Nystatin Powder 15 Gm Bottle) 1 appl TOPICAL TID FOR[facility], [facility]; Protocol Last Admin: 02/20/25 12:15 Dose: 1 appl Documented By: IRVING Omeprazole (Omeprazole 20 Mg Capsule.) 20 mg PO DAILY@0630 [facility], [facility] Last Admin: 02/20/25 05:46 Dose: 20 mg Documented By: CLARISSE Ondansetron HCl (Ondansetron Hcl 4 Mg/2 Ml Vial) 4 mg IVPUSH Q8H PRN PRN Reason: Nausea and Vomiting Sodium Chloride (0.9 % Sodium Chloride Flush 3 Ml Syringe) 3 ml IVFLUSH QSHIFT FOR[facility], [facility] Last Admin: 02/20/25 07:46 Dose: 3 ml Documented By: IRVING Labs 02/20/25 06:26 02/20/25 06:26 Labs: Laboratory Results - last 24 hr 02/18/25 02/19/25 02/19/25 17:25 15:19 16:00 MCV MCH MCHC RDW Plt Count MPV Absolute Nucleated RBC Nucleated RBC % (auto) Anion Gap Estim Creat Clear Calc Estimated GFR POC Glucose 250 H Random Glucose Calcium Vitamin B12 Folate Ur Random Sodium Urine Creatinine Respiratory Panel Gonsales See Note See Note Adenovirus (Rapid PCR) Not Detected Not Detected B.pert (TEM-PCR) Not Detected Not Detected B.parapertussis DNA PCR Not Detected Not Detected C. pneumoniae DNA (PCR) Not Detected Not Detected Coronavirus OC43 (PCR) Not Detected Not Detected Coronavirus HKU1 (PCR) Not Detected Not Detected Coronavirus 229E (PCR) Not Detected Not Detected Coronavirus NL63 (PCR) Not Detected Not Detected Human Metapneumovir PCR Not Detected Not Detected Influenza A (RT-PCR) Not Detected Not Detected Influenza A (H1) PCR Not Detected Not Detected Influ A (H1/09) PCR Not Detected Not Detected Influenza A (H3) PCR Not Detected Not Detected Influenza B (RT-PCR) Not Detected Not Detected M. pneumoniae (PCR) Not Detected Not Detected Parainfluenza 1 (PCR) Not Detected Not Detected Parainfluenza 2 (PCR) Not Detected Not Detected Parainfluenza 3 (PCR) Not Detected Not Detected Parainfluenza 4 (PCR) Not Detected Not Detected RSV (PCR) Not Detected Not Detected Entero/Rhino (PCR) Detected A Detected A SARS-CoV-2 RNA (RT-PCR) Not Detected Not Detected 02/19/25 02/19/25 02/20/25 17:19 20:51 06:26 MCV 86.1 MCH 27.7 MCHC 32.2 RDW 18.6 H Plt Count 155 L D MPV 13.3 H Absolute Nucleated RBC 0.000 Nucleated RBC % (auto) 0.0 Anion Gap 15 Estim Creat Clear Calc 19.0 Estimated GFR 20 POC Glucose 177 H Random Glucose 167 H Calcium 8.8 Vitamin B12 552 Folate 15.0 Ur Random Sodium 54.0 Urine Creatinine 71.03 Respiratory Panel Gonsales Adenovirus (Rapid PCR) B.pert (TEM-PCR) B.parapertussis DNA PCR C. pneumoniae DNA (PCR) Coronavirus OC43 (PCR) Coronavirus HKU1 (PCR) Coronavirus 229E (PCR) Coronavirus NL63 (PCR) Human Metapneumovir PCR Influenza A (RT-PCR) Influenza A (H1) PCR Influ A (H1/) PCR Influenza A (H3) PCR Influenza B (RT-PCR) M. pneumoniae (PCR) Parainfluenza 1 (PCR) Parainfluenza 2 (PCR) Parainfluenza 3 (PCR) Parainfluenza 4 (PCR) RSV (PCR) Entero/Rhino (PCR) SARS-CoV-2 RNA (RT-PCR) 02/20/25 02/20/25 07:13 11:24 MCV MCH MCHC RDW Plt Count MPV Absolute Nucleated RBC Nucleated RBC % (auto) Anion Gap Estim Creat Clear Calc Estimated GFR POC Glucose 164 H 273 H Random Glucose Calcium Vitamin B12 Folate Ur Random Sodium Urine Creatinine Respiratory Panel Gonsales Adenovirus (Rapid PCR) B.pert (TEM-PCR) B.parapertussis DNA PCR C. pneumoniae DNA (PCR) Coronavirus OC43 (PCR) Coronavirus HKU1 (PCR) Coronavirus 229E (PCR) Coronavirus NL63 (PCR) Human Metapneumovir PCR Influenza A (RT-PCR) Influenza A (H1) PCR Influ A (H1/) PCR Influenza A (H3) PCR Influenza B (RT-PCR) M. pneumoniae (PCR) Parainfluenza 1 (PCR) Parainfluenza 2 (PCR) Parainfluenza 3 (PCR) Parainfluenza 4 (PCR) RSV (PCR) Entero/Rhino (PCR) SARS-CoV-2 RNA (RT-PCR) Microbiology Microbiology Results: Microbiology 02/18/25 15:02 Blood Culture - Preliminary Blood - Venous No growth after 24 hours. 02/18/25 14:30 Blood Culture - Preliminary Blood - Venous No growth after 24 hours. Assessment and Plan (1) Pneumonia: Status: Acute (2) CKD (chronic kidney disease) stage 4, GFR 15-29 ml/min: Status: Acute (3) Diabetes mellitus with coincident hypertension: Status: Acute Plan 89yo F with CKD4, pAF on apixaban, HF with recovered EF, DM2, HTN, and HLD but no chronic lung disease presenting with cough productive of thin mucus and generalized weakness and fatigue. Found to have interstitial prominence/peribronchial thickening, likely bronchopneumonia; also BARB/CKD4 and hypomagnesemia 1.Pneumonia - ceftriaxone/doxycycline(3) -positive for rhino virus... Precautions in place 2.BARB/CKD4 - essentially no change in Cr -consult renal -follow renal/divalents 3.Diabetes type 2 -lispro correctional scale -adjust as appropriate 4./PAF -examined in normal sinus rhythm - apixaban, diltiazem VTE ppx- apixaban In my clinical judgment, the patient requires continued inpatient hospitalization for the following reasons: IV ABX, BARB Quality Stroke Does the patient have a stroke diagnosis?: No VTE Prior VTE?: No VTE Risk Level:: Medical - moderate - high VTE Device Contraindication: N/A - Device Ordered VTE Drug Contraindication: N/A - Med Ordered
[2025-02-20 15:53] LABS: Glucose, Whole Blood 188 mg/dL (60-115)
[2025-02-20 20:29] LABS: Glucose, Whole Blood 164 mg/dL (60-115)
[2025-02-21 03:43] VITALS: BP 150/60; PULSE 88; RESP 16; TEMP 36.9; O2SAT 97
[2025-02-21 06:51] LABS: MANUAL DIFF FLAG NO
[2025-02-21 06:58] VITALS: BP 148/79; PULSE 91; RESP 17; TEMP 36.2; O2SAT 97
[2025-02-21 07:03] LABS: Hematocrit 29.9 % (37.0-47.0); Hemoglobin 9.5 g/dl (12.0-16.0); Imm Gran Abs Auto 0.04 X10*3/uL (0.00-0.03); Imm Gran Pct Auto 0.5 % (0.0-0.4); Lymphocytes Absolute Auto 0.9 X10*3/uL (1.2-4.9); Mean Corpuscular HGB Conc 31.8 g/dl (31.0-35.0); Mean Corpuscular Hemoglobin 27.5 pg (27.0-33.0); Mean Corpuscular Volume 86.7 fL (80.0-98.0); NRBC Abs Auto 0.000 X10*3/uL (0.0-0.012); NRBC Pct Auto 0.0 /100WBC (0.0-0.2); Platelet Count 214 X10*3/uL (160-400); Red Blood Count 3.45 X10*6/uL (4.20-5.50); White Blood Count 7.4 X10*3/uL (4.8-10.8)
[2025-02-21 07:14] LABS: Alanine Aminotransferase < 6 U/L (0-31); Albumin Level 2.9 g/dL (3.5-5.0); Alkaline Phosphatase 57 U/L (39-117); Anion Gap 13 (12-20); Aspartate Amino Transferase 20 U/L (5-31); Blood Urea Nitrogen 37 mg/dL (9-16); Calcium 8.9 mg/dL (8.4-10.2); Carbon Dioxide 24 mmol/L (22-29); Chloride 109 mmol/L (96-108); Creatinine Clr Calc Pharmacy 19.9; Estimated Glomerular Filt Rate 21; Potassium 3.5 mmol/L (3.3-5.1); Sodium 142 mmol/L (135-145); Total Protein 5.7 g/dL (6.5-8.0)
[2025-02-21 07:25] LABS: Glucose, Whole Blood 170 mg/dL (60-115)
[2025-02-21] MEDS: dilTIAZem HCL CD 120 MG CAP.ER.DEG PO (07:43)
[2025-02-21] MEDS: Ferrous Sulfate 324 MG TABLET.DR PO (07:44)
[2025-02-21] MEDS: 0.9 % Sodium Chloride Flush 3 ML SYRINGE IVFLUSH (07:44)
[2025-02-21 10:46] VITALS: BP 148/79; PULSE 91
[2025-02-21 11:06] VITALS: BP 142/60; PULSE 86; RESP 18; TEMP 36.1; O2SAT 97
[2025-02-21 11:27] LABS: Glucose, Whole Blood 299 mg/dL (60-115)
--- NOTE | 2025-02-21 14:19 | MHC.CM.PN ---
Patient has not yet been medically cleared for dc to home (elevated Creatinine); home with services is the goal and CM will continue to follow.
--- NOTE | 2025-02-21 14:51 | P.DS_ITS ---
DS: Providers Provider Date of Service: 02/21/25 Date of admission: 02/18/25 15:56 Date of discharge: 02/21/25 Primary care physician: SANTA Mejias Consults: 02/20/25 13:16 Consult to Nephrology Routine Consulting Provider: Neo Rollins Reason for consultation: BARB Has provider been notified: No DS: Diagnosis Discharge Diagnosis (1) Pneumonia: Status: Acute (2) CKD (chronic kidney disease) stage 4, GFR 15-29 ml/min: Status: Acute (3) Diabetes mellitus with coincident hypertension: Status: Acute DS: Summary Hospital Course Hospital Course: 89yo F with CKD4, pAF on apixaban, HF with recovered EF, DM2, HTN, and HLD but no chronic lung disease presented to the [facility] ED with 3 days of cough productive of thin mucus and generalized weakness and fatigue. One episode of diarrhea. NO abdominal pain, chest pain, fever, lightheadedness, or dizziness. She was found to have some degree of superimposed BARB with SCr 2.37 [baseline around 2], slightly low magnesium at 1.5, and CXR with some interstitial prominence and pericbronchial thickening. BUN high at 42. WBCs up to 11 with 85% PMNs. She was given IV ceftriaxone and IV magnesium sulfate. Hospital course Patient was admitted to telemetry and doxycycline was added to the ceftriaxone. She continued to improve and had no O2 requirement. She was seen by Physical therapy and deemed appropriate for home physical therapy. At this point in time she will be discharge to complete a one-week course of doxycycline b.i.d. and follow up with the PCP. She was seen by Dr. Rollins, her trials manager and made no new recommendations. He will see her as an outpatient Time Attestation Discharge Coordination Time (in mins): 35 Quality: Safe Use of Opioids Does Pt have an Active Cancer Diagnosis on the Problem List?: No Quality: Stroke Does the patient have a stroke diagnosis?: No Physical Exam Vital Signs: Vital Signs: Last Vital Signs Temp 96.9 F 02/21/25 11:06 Pulse 86 02/21/25 11:06 Resp 18 02/21/25 11:06 BP 142/60 H 02/21/25 11:06 Pulse Ox 97 02/21/25 11:06 O2 Del Method Room Air 02/21/25 11:06 BMI result Body Mass Index 35.6 Const: Other: Awake alert no acute distress Resp: Other: Clear to auscultation bilaterally no rales rhonchi or wheezes Cardio: Other: No S4; positive S1-S2; no S3 murmurs rubs or gallops GI: Other: Soft nontender nondistended normoactive bowel sounds Extrem: Other: No edema bilaterally DS: Data Data Completed and Pending Completed studies during hospitalization [Text1]: Procedures Insertion of Infusion Device into Superior Vena Cava, Percutaneous Approach (03/23/23) Ultrasonography of Superior Vena Cava, Guidance (03/23/23) Labs on day of discharge: Laboratory Results - last 24 hr 02/20/25 02/20/25 02/21/25 15:41 20:14 06:24 WBC RBC Hgb Hct MCV MCH MCHC RDW Plt Count MPV Immature Gran % (Auto) Neut % (Auto) Lymph % (Auto) [place] % (Auto) Eos % (Auto) Baso % (Auto) Lymph # (Auto) [place] # (Auto) Eos # (Auto) Baso # (Auto) Abs Immat Gran (auto) Absolute Neuts (auto) Absolute Nucleated RBC Nucleated RBC % (auto) Sodium 142 Potassium 3.5 Chloride 109 H Carbon Dioxide 24 Anion Gap 13 BUN 37 H Creatinine 2.21 H Estim Creat Clear Calc 19.9 Estimated GFR 21 POC Glucose 188 H 164 H Fasting Glucose 176 H Calcium 8.9 Total Bilirubin 0.3 AST 20 ALT < 6 Alkaline Phosphatase 57 Total Protein 5.7 L Albumin 2.9 L 02/21/25 02/21/25 02/21/25 06:25 07:01 11:18 WBC 7.4 RBC 3.45 L Hgb 9.5 L Hct 29.9 L MCV 86.7 MCH 27.5 MCHC 31.8 RDW 18.2 H Plt Count 214 D MPV 12.5 H Immature Gran % (Auto) 0.5 H Neut % (Auto) 76.5 H Lymph % (Auto) 11.9 L [place] % (Auto) 6.6 Eos % (Auto) 4.2 H Baso % (Auto) 0.3 Lymph # (Auto) 0.9 L [place] # (Auto) 0.5 Eos # (Auto) 0.3 Baso # (Auto) 0.0 Abs Immat Gran (auto) 0.04 H Absolute Neuts (auto) 5.7 Absolute Nucleated RBC 0.000 Nucleated RBC % (auto) 0.0 Sodium Potassium Chloride Carbon Dioxide Anion Gap BUN Creatinine Estim Creat Clear Calc Estimated GFR POC Glucose 170 H 299 H Fasting Glucose Calcium Total Bilirubin AST ALT Alkaline Phosphatase Total Protein Albumin Preliminary micro results at discharge 02/18/25 15:02 Blood Culture - Preliminary Blood - Venous No growth after 48 hours. 02/18/25 14:30 Blood Culture - Preliminary Blood - Venous No growth after 48 hours. Discharge Plan Discharge Anticipated Discharge Date/Time: 02/21/25 14:44 Patient Disposition: Home Health Service Discharge Diagnosis: Bronchopneumonia Referrals: Yosi Anand FNP-C [Primary Care Provider, Internal Medicine] - 1 Week Discharge Medications: New doxycycline monohydrate 100 mg Capsule 100 mg PO Q12H Qty: 14 0RF Continued hydralazine 25 mg tablet 25 mg PO BID 90 Days Qty: 180 8RF omeprazole 20 mg capsule,delayed release(DR/EC) 20 mg PO DAILY@0630 Qty: 90 8RF fenofibrate 160 mg tablet 160 mg PO DAILY Qty: 90 8RF allopurinol 100 mg tablet 100 mg PO DAILY Qty: 90 7RF ergocalciferol (vitamin D2) 1,250 mcg (50,000 unit) capsule 1,250 mcg PO Q14D Qty: 60 4RF Rx Instructions: GIVEN EVERY OTHER WEDNESDAY Eliquis 2.5 mg tablet 2.5 mg PO BID Qty: 180 2RF diltiazem HCl 120 mg capsule,extended release 24hr 120 mg PO DAILY Qty: 90 3RF Rx Instructions: Stop Metoprolol - Continue Diltiazem CD 120mg daily acetaminophen 500 mg Tablet 500 mg PO Q4H PRN (Reason: Moderate Pain (Scale Score 5-6)) Humulin 70/30 U-100 KwikPen 100 unit/mL (70-30) insulin pen 5 - 15 unit subcut BEDTIME Rx Instructions: patient noted she uses sliding scale based on her sugars, could not confirm ranges Humulin 70/30 U-100 KwikPen 100 unit/mL (70-30) insulin pen 20 unit subcut DAILY multivitamin Tablet 1 tab PO DAILY Discharge Orders: Discharge Order (Routine); Ordered 02/21/25 Ordered By: Enoch Courtney Diet: Advance to usual diet Activity on Discharge: As tolerated Stand Alone Forms: Patient Portal Discharge page Print Language: Kinyarwanda Care Plan Goals: Complete doxycycline 100 mg twice daily for 1 week. Resume all your medicines as taken prior to the hospital Health Concerns: Follow up with your PCP and kidney doctor as scheduled Plan of Treatment: Home physical therapy and nursing Assessment: See discharge summary
--- NOTE | 2025-02-21 15:08 | MHC.CM.PN ---
Patient has been medically cleared for dc to home today, with services. [facility] has accepted Patient and they have been made aware of today's dc. [place] was addressed on 02/19/2025.
--- NOTE | 2025-02-21 15:21 | P.F2F_ITS ---
Service Date Service Date: 02/21/25 Encounter Date of encounter: 02/21/25 Encounter: Acute hospitalization Reasons for Services Signs and symptoms assessed: Home physical therapy and assess response to medication therapy Reason for intermediate: medication management, medication treatment and teach disease management Reason for physical therapy: home safety and mobility, therapeutic exercises and gait/transfer training Homebound: Leaving the home is medically contraindicated at this time without the asist of a device and/or another person due th the listed conditions above and below. Reason homebound: unsteady gait / fall risk, leg weakness and unable to drive Certification: Based on the above findings, I certify that this patient is confined to the home and needs intermittent intermediate care, physical therapy and/or speech therapy, or continues to need occupational therapy. The patient is under my care, and I have initiated the establishment of the plan of care. The patient will be followed by a physician who will periodically review the plan of care. Time Spent With Patient Time: Total time managing care of this patient today ____ minutes.
--- NOTE | 2025-02-21 16:37 | P.CONNP_ITS ---
History of Present Illness Reason for Consult Consult date: 02/21/25 Chief Complaint Chief complaint: pneumonia, BARB/CKD4 History of Present Illness Narrative: RTANE consulted fro BARB on adv CKD In summary 89yo F with known adv CKD4,admm with incr SOB and Dx with virla resp infection. Noted bump in Scr which is not far from her BSL Scr 2.0 range PMH also signif for : pAF on apixaban, HF with recovered EF, DM2, HTN, and HLD Overall doing better and possible d/c home in next 1-2 days Poor po intake and now on gentle IVF Review of Systems Review of Systems Denies chest pain Denies shortness of breath Denies nausea vomiting diarrhea Denies fever chills Yes all other systems are reviewed and are negative Constitutional: Reports no additional constitutional complaints, Reports chills, Denies fever(s), Denies night sweats and Reports weakness Eyes: Reports no additional eye complaints, Denies blurry vision, Denies change in vision, Denies diplopia, Denies eye discharge, Denies loss of vision and Denies eye pain Denies dizziness Cardiovascular: Reports no additional cardiovascular complaints, Denies chest pain, Denies lightheadedness, Denies Loss of Consciousness and Denies dyspnea Respiratory: Reports no additional respiratory complaints, Reports cough and Denies dyspnea Gastrointestinal: Reports no additional gastrointestinal complaints, Denies abdominal pain, Denies melena, Denies hematochezia, Denies change in bowel habits, Denies change in stool character and Reports diarrhea Musculoskeletal: Reports no additional musculoskeletal complaints, Denies numbness and Denies tingling Denies dizziness, Denies loss of vision, Denies numbness, Denies tingling and Reports weakness Psychiatric: Reports no additional psychiatric complaints Endocrine: Reports no additional endocrine complaints Hematologic/Lymphatic: Reports no additional hematologic/lymphatic complaints Allergic/Immunologic: Reports no additional allergic/immunologic complaints PMFSH Past Medical History Medical History Hyperlipidemia CKD (chronic kidney disease) stage 4, GFR 15-29 ml/min Atrial fibrillation Osteomyelitis Gout Anemia Hx of type A viral hepatitis Obesity Diabetes mellitus Family History Family History Father Gastric cancer Mother Acute CVA (cerebrovascular accident) Diabetes Brother Colon cancer Surgical History Surgical History History of foot surgery History of surgical removal of skin lesion History of biopsy History of excision of lesion H/O varicose vein ligation History of cholecystectomy Social History Social History Household Members: Family Household Members Other:: sonvivek Housing: House Do you presently have visiting nurse or other home services: No Alcohol intake: never Patient Tobacco Use Status: Never used Tobacco e-Cigarette/Vaping Use: Never Used Second Hand Smoke Exposure: No Advance Directives Date on File: 07/16/21 service: No Current occupational status: retired Cognitive needs: Yes (walker ) Hearing needs: No Vision needs: Yes Meds Allergies Allergy/AdvReac Type Severity Reaction Status Date / Time codeine (CODEINE) Allergy Intermediate BACK PAIN Verified 02/18/25 13:33 pollen extracts (POLLEN) Allergy Mild SINUS Verified 02/18/25 13:33 IRRITATION metoprolol AdvReac Intermediate Hallucinati Verified 02/18/25 13:33 ons Home Medications ?Medication ?Instructions ?Recorded ?Confirmed ?Last Taken ?Type acetaminophen 500 mg tablet 500 mg PO Q4H PRN Moderate Pain 12/19/23 02/18/25 02/18/25 History (Scale Score 5-6) insulin NPH-regular 70-30 U-100 5 - 15 unit subcut BED TIME 02/18/25 02/18/25 Unknown History insulin 100 unit/mL subcutaneous pen (Humulin 70/30 U-100 KwikPen) insulin NPH-regular 70-30 U-100 20 unit subcut DAILY 0 02/18/25 02/18/25 02/18/25 History insulin 100 unit/mL subcutaneous pen (Humulin 70/30 U-100 KwikPen) multivitamin 1 tab PO DAILY 02/18/25 06/2 05/1702/18/25 History Physical Exam Vital Signs: Last Vital Signs Temp 96.9 F 02/21/25 11:06 Pulse 86 02/21/25 11:06 Resp 18 02/21/25 11:06 BP 142/60 H 02/21/25 11:06 Pulse Ox 97 02/21/25 11:06 O2 Del Method Room Air 07/02/25 11:06 BMI result Body Mass Index 35.6 Const Other: Awake alert no acute distress General: cooperative, no acute distress, alert and awake Nutritional Appearance: well nourished Orientation/consciousness: patient oriented x3 HEENT Head: Yes normal to inspection and Yes atraumatic Ears: hearing grossly normal bilaterally and external ears normal General nose exam: Normal external nose present, no nasal discharge noted and no epistaxis Face and sinus: Yes normal facial exam, No abrasion and No laceration Mouth: Normal oral and palatal mucosa present, no drooling and no muffled voice Eyes General: appearance normal, both eyes and all related structures Periorbital: periorbital findings normal Eyelids: Yes eyelids normal Conjunctivae: conjunctivae normal Pupils: Equal, round and reactive pupils present EOM: EOMs intact bilaterally Neck Neck: Yes normal visual inspection, Yes full ROM and Yes no lymphadenopathy Resp Other: Clear to auscultation bilaterally no rales rhonchi or wheezes Effort & Inspection: normal respiratory effort and able to speak in complete sentences Cardio Other: No S4; positive S1-S2; no S3 murmurs rubs or gallops GI Other: Soft nontender nondistended normoactive bowel sounds Neuro General: patient oriented x3, moves all extremities and CN's II-XI intact bilaterally Cranial nerves: Yes Equal, round and reactive pupils present Cognition (Neuro): normal cognition Extrem Other: No edema bilaterally General: Yes full ROM and Yes capillary refill normal Psych Appearance: grossly normal Mental Status: mental status grossly normal Affect: normal affect Attitude: cooperative Thought process: Normal thought process present Thought content: Normal thought content present Insight: Good insight present (Psych) Results Lab Results 02/21/25 06:25 02/21/25 06:24 Lab results: Chemistry 02/19/25 02/20/25 02/21/25 06:04 06:26 06:24 Sodium 142 140 142 Potassium 3.8 3.9 3.5 Carbon Dioxide 24 23 24 BUN 37 H 41 H 37 H Creatinine 2.13 H 2.30 H 2.21 H Calcium 8.9 8.8 8.9 Hematology 02/19/25 02/20/25 02/21/25 06:04 06:26 06:25 WBC 10.4 8.6 7.4 Hgb 9.7 L 9.2 L 9.5 L Plt Count 209 155 L D 214 D Urine Studies 02/19/25 17:19 Urine Creatinine 71.03 Assessment and Plan (1) Pneumonia: Status: Acute (2) CKD (chronic kidney disease) stage 4, GFR 15-29 ml/min: Status: Acute (3) Diabetes mellitus with coincident hypertension: Status: Acute Plan BARB : c/w stress from resp decomp from pneumonia Adv CKD with BSL Svr 2.0 range; c/w DN/HTN 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
[2025-02-22 01:18] LABS: Strep Pneumo Ag urine Not Detected (Not Detected)
== END 2025-02-21 15:42 | disposition home health service (06) | DRG 194 ==
LOC: HO.ED 15:33 → HO.EDOVER 16:00 → HO.IMC 19:27
PROVIDERS: Physician Assistant Medical; Admitting Provider Family Medicine; Emergency Provider Emergency Medicine; Visit Provider Hospitalist
DX: J18.9 Pneumonia, unspecified organism (principal); I13.0 Hypertensive heart and chronic kidney disease with heart failure and stage 1 through stage 4 chronic kidney disease, or unspecified chronic kidney disease; I50.32 Chronic diastolic (congestive) heart failure; N18.4 Chronic kidney disease, stage 4 (severe); N17.9 Acute kidney failure, unspecified; I48.0 Paroxysmal atrial fibrillation; M10.9 Gout, unspecified; E78.5 Hyperlipidemia, unspecified; B97.89 Other viral agents as the cause of diseases classified elsewhere; B97.10 Unspecified enterovirus as the cause of diseases classified elsewhere; D63.1 Anemia in chronic kidney disease; N25.0 Renal osteodystrophy; E83.42 Hypomagnesemia; E11.22 Type 2 diabetes mellitus with diabetic chronic kidney disease; Z20.822 Contact with and (suspected) exposure to COVID-19; Z79.4 Long term (current) use of insulin; Z79.01 Long term (current) use of anticoagulants; Z79.899 Other long term (current) drug therapy
CPT/HCPCS: 0241U; 36415; 71045; 80048; 80053; 81001; 82570; 82607; 82728; 82746; 82947; 83540; 83605; 83615; 83735; 83880; 84145; 84300; 84484; 85025; 85027; 85045; 87040; 87449; 87633; 87899; 93005; 97110; 97116; 97162; 97530; 99285; J0696; J3475

== ENCOUNTER → 2025-02-18 13:40 | Outpatient (BNV) | payer MEDICARE, SELFPAY | PROVIDERS: Admitting Provider Family Medicine; Emergency Provider Emergency Medicine; Visit Provider Radiology Vascular & Interventional Radiology | DX: J84.9 Interstitial pulmonary disease, unspecified (principal) | CPT/HCPCS: 71045 ==

== ENCOUNTER → 2025-02-18 13:40 | Outpatient (BNV) | payer MEDICARE, SELFPAY | PROVIDERS: Admitting Provider Family Medicine; Emergency Provider Emergency Medicine; Visit Provider Internal Medicine Cardiovascular Disease | DX: I48.91 Unspecified atrial fibrillation (principal) | CPT/HCPCS: 93010 ==

== ENCOUNTER → 2025-02-18 15:56 | Outpatient (BNV) | payer MEDICARE, SELFPAY | PROVIDERS: Admitting Provider Family Medicine; Emergency Provider Emergency Medicine; Visit Provider Family Medicine | DX: J18.9 Pneumonia, unspecified organism (principal) | CPT/HCPCS: 99223 ==

== ENCOUNTER 2025-02-28 11:17 | Outpatient (REF) | payer MEDICARE, SELFPAY ==
[2025-02-28 11:35] LABS: MANUAL DIFF FLAG NO
[2025-02-28 11:38] LABS: Hematocrit 32.6 % (37.0-47.0); Hemoglobin 10.3 g/dl (12.0-16.0); Imm Gran Abs Auto 0.03 X10*3/uL (0.00-0.03); Imm Gran Pct Auto 0.4 % (0.0-0.4); Lymphocytes Absolute Auto 1.4 X10*3/uL (1.2-4.9); Mean Corpuscular HGB Conc 31.6 g/dl (31.0-35.0); Mean Corpuscular Hemoglobin 27.4 pg (27.0-33.0); Mean Corpuscular Volume 86.7 fL (80.0-98.0); NRBC Abs Auto 0.000 X10*3/uL (0.0-0.012); NRBC Pct Auto 0.0 /100WBC (0.0-0.2); Platelet Count 293 X10*3/uL (160-400); Red Blood Count 3.76 X10*6/uL (4.20-5.50); White Blood Count 7.0 X10*3/uL (4.8-10.8)
--- OUTSIDE RECORDS SUMMARY | 2025-02-28 12:30 | XMS_ITS | Clinical Summary ---
Author Organization [facility] Address [address] [place] [address] [address] [place] [address] Care Team Providers Care Lease Purchase Driver Name Role Phone Unavailable Primary Care Provider [...] season) 2024 10/22/2020, 09/23/2020 Influenza Vaccine (#1) 2025 HIB Vaccines Aged Out No longer [...]
--- OUTSIDE RECORDS SUMMARY | 2025-02-28 12:31 | XMS_ITS | Clinical Summary ---
Author Organization [facility] Address [address] [place] [id number] Care Team Providers Care Finish Off Operator Name Role Phone Christopher Zamudio MD Primary Care Provider [phone] Surgical History Surgery Date Site/Laterality Comments CHOLECYSTECTOMY [...] (HCC); COMMENT: Seen at [facility]. History of cataract 10/17/2020 DX:History o f cataract Type 2 diabetes mellitus wit h cataract (CMS/HCC V24, CMS/HCC V28) 10/17/2020 DX:Type 2 diabetes mellitus with cataract ([facility]) Arrhythmia 10/17/2020 DX:Arrhythmia Family History Medical [...] BMP Blood Test 08/07/2022 Influenza Vaccine (#1) 2025 HIB Vaccines Aged [...] Documents on File Type Date Recorded Patient [employer] Expl anation Health Care Decision (hx) 08/20/2023 AD العراقي DIRECTIVE Health Care Decision (hx) 08/20/2023 AD العراقي DIRECTIVE Care Teams Finish Off Operator Relationship Specialty Start Date End Date Christopher Zamudio MD [address] [place] [address] [place] [id number] PCP - General 09/10/16
--- OUTSIDE RECORDS SUMMARY | 2025-02-28 12:31 | XMS_ITS | Encounter Summary ---
Author Organization [facility] [place] Address [address] [phone] Phone Care Team Providers Care Compliance Nurse Name Role Phone Christopher Zamudio MD Primary Care Provider [phone] Encounter Details Date Type Department Care Team (Late Contact Info) Description 02/23/2025 Orders Only [facility] [address] [address] Neo Rollins MD [facility] [address] [address] Chronic kidney disease, stage 4 (severe) (HCC); Anemia in chronic kidney disease Social History [...] Care Team (Late st Contact Info) Description 04/03/2025 1:30 PM EDT Office Visit [facility] [place] [facility] [address] [phone] Neo Rollins MD [facility] [address] [phone] documented as of this encounter Visit Diagnoses Diagnosis Chronic kidney disease, stage 4 (severe) (HCC) Anemia in chronic kidney disease documented in this encounter Care Teams Compliance Nurse Relationship Specialty Start Date End Date Christopher Zamudio MD [address] [place], [place] PCP - General 09/02/20 documented as of this encounter
--- OUTSIDE RECORDS SUMMARY | 2025-02-28 12:31 | XMS_ITS | Patient Health Record ---
Author Organization [facility] Address [address] [place] [phone] Care Team Providers Care Rock Room Worker Name Role Phone PriceWilber [phone] Reason For Referral No Information Plan Of Treatment No Information
--- OUTSIDE RECORDS SUMMARY | 2025-02-28 12:31 | XMS_ITS | Data Portability ---
Author Organization [facility], Main Office Address [address] [address] [address] [place] [address] Care Team Providers Care Director It Name Role Phone TISHA MANZO Primary Care Provider [phone] YARA CISNEROS 2ND FLOOR OTHER Assessment Encounter [...] Address Organization Details Recorded Time Bacteremi a 9532785 Active 2022 MSSA foot infection Not Available [facility] 4 02:47:47 Type 2 diabetes mellitus 28264030 Active 2022 Not Available [facility] 4 02:47:47 Hypothyro idism 19190312 Active 2022 Not Available [facility] 4 02:47:47 Chronic kidney disease 279807693 Active 2022 Not Available [facility] 4 02:47:47 Gout 25401875 Active 2022 Not Available [facility] 4 02:47:47 Gastroeso phageal reflux disease without esophagit is 111971513 Active 2022 Not Available [facility] 4 02:47:47 Hyperlipi demia 70429786 Active 2022 Not Available [facility] 4 02:47:47 Essential hypertens ion 72850953 Active 2022 Not Available [facility] 4 02:47:47 Hypomagne semia 026235052 Active 2023 Not Available [facility] 4 02:47:47 Vitamin D deficienc y 09031975 Active 2023 Not Available [facility] 4 02:47:47 Chronic diastolic heart failure 188619785 Active 2023 Janee Davis MD [address] [facility], [facility] [address], [place], [address] , [facility] 4 10:48:17 Anemia 283298404 Active 2023 Janee Davis MD [address] [facility], [address], [place], [address] , [facility] 4 11:10:38 Bimalleol ar fracture of ankle 443345184 Active 2023 TATI CURRIE [address] [facility], [facility] [address], [place], [address] , [facility] [employer] 4 14:06:55 Stasis dermatiti s and 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 Please review this document and add these problems to the patient's chart manually as needed. Problem Notes None recorded. Medical Equipment None Reported. Allergies Allergen ID Allergen Name Allergen Category Reaction Reaction Severity Criticality Documentation Date Start Date Code Code System Note Provider Name and Address Organization Details Recorded Time 52375 codeine medicatio n Not available Not available Not available 08/20/2023 2670 RxNorm ALVARADO DEL CID NP [address] [facility], [address], [place], [address], [facility] 3 10:53:18 Vitals Date Recorded Body height Heart rate Respiratory rate Body temperature Systolic And Diastolic Provider Name and Address Organization Details Last Updated DateTime 4 170.18 cm 80 /min 16 /min 98 [degF] 129/78 mm[Hg] TATI CURRIE [address] [facility], [address], [place], [address], [facility] 4 10:52:49 Date Recorded Body height Body temperature Respiratory rate Heart rate Systolic And Diastolic Provider Name and Address Organization Details Last Updated DateTime 4 170.18 cm 97.3 [degF] 18 /min 68 /min 122/68 mm[Hg] TATI CURRIE [address] [facility], [address], [place], [address], [facility] 4 14:33:03 Date Recorded Body height Heart rate Respiratory rate Body temperature Systolic And Diastolic Provider Name and Address Organization Details Last Updated DateTime 4 170.18 cm 74 /min 18 /min 98 [degF] 132/74 mm[Hg] TATI CURRIE [address] [facility], [address], [place], [address], [facility] 4 12:19:44 Date Recorded Body height Body mass index (BMI) Body weight Heart rate Respiratory rate Body temperature Oxygen saturation Oxygen saturation in Arterial blood by Pulse oximetry Systolic And Diastolic Provider Name and Address Organization Details Last Updated DateTime 4 170.18 cm 31.6 kg/m2 95649.6 6 g 79 /min 18 /min 97.4 [degF] 100 % 100 % 141/75 mm[Hg] Janee Davis MD [address] [facility], [address], [place], [address], [facility] 4 21:07:19 Date Recorded Body height Heart rate Respiratory rate Body temperature Oxygen saturation Oxygen saturation in Arterial blood by Pulse oximetry Systolic And Diastolic Provider Name and Address Organization Details Last Updated DateTime 4 170.18 cm 79 /min 18 /min 98 [degF] 100 % 100 % 141/75 mm[Hg] TATI CURRIE [address], [address], [place], [address], [facility] 4 14:26:02 Social History Question Answer Notes LastModified by [employer] Details LastModified Time Tobacco Smoking Status Never Smoker ALVARADO DEL CID NP [address], [address], [place], [address], [facility] 08/20/2023 11:16:58 Do You Have An Advance Directive? Yes Information not available 08/20/2023 What Is Your Code Status? Full Code Information not available 08/20/2023 Where Do You Live? SingleLevelHouse Lives With Son, 3-4 Steps To Enter Information not available 08/24/2023 Legal Guardian? No Informati on not available 08/24/2023 Do You Have A Medical Power Of Auditor Internal? Yes Information not available 08/24/2023 What Was [...] Functional Status Question Answer Note LastModified by [employer] Details LastModified Time Do you use any [...] adjuvanted, quadrivalent, PF 3 completed Not Available [facility] 09/30/2023 02:47:47 Td(adult) unspecified formulation 1 completed [facility] 12/28/2023 16:20:20 SARS-COV-2 (COVID-19) vaccine, UNSPECIFIED 1 completed [facility] 12/28/2023 16:20:43 SARS-COV-2 (COVID-19) vaccine, UNSPECIFIED 1 completed [facility] 12/28/2023 16:20:50 pneumococcal polysaccharide PPV23 1 completed [facility] 12/28/2023 16:21:57 SARS-COV-2 (COVID-19) vaccine, UNSPECIFIED 1 completed [facility] 12/28/2023 16:22:45 Past Encounters Encounter ID Performer Location Encounter Start Date Encounter Closed Date Diagnosis/Indication Diagnosis SNOMED-CT Code Diagnosis ICD10 Code Diagnosis Note [id number] SCOTT NOBLES [address] [place] [address] 08/20/2023 09:52:59 08/31/2023 13:27:41 Bacteremia 2701385 R78.81 flush picc qshiftcefa zolin 1 gm bid to 2/2followu p with vascular as planned Type 2 tiara betes mellitus 62782986 E11.9 humulin/re g 70/30 50 units bidmonitor glucose Chronic ki dney disease 756231805 N18.9 monitor labsavoid nephrotoxi c meds Gastroesop hageal reflux disease without esophagitis 543904052 K21.9 mag ox 400 mg daily to 8omepraz ole 20 mg daily Gout 56249776 M10.9 allopurino l 100 mg dailyD3 1250 [id number] Hyperlipidemia 65365788 E78.5 fenofibrat e 160 mg daily Hypothyroidism 49062659 E03.9 hx of Essential hypertension 17417111 I10 lasix 20 mg dailyhydra lazine 25 mg bidtoprol 25 mg dailymonit or bplisinopr il stopped in hospital [id number] ALVARADO DEL CID NP [address] [place] [address] 08/24/2023 13:44:02 08/25/2023 03:52:21 Type 2 diabetes mellitus 46188204 E11.9 humulin/re g 70/30 50 units bidmonitor glucose Bacteremia 0259081 R78.8 1 flush picc qshiftcefa zolin 1 gm bid to 2/2followu p with vascular as planned [id number] Janee Davis MD [address] [place] [address] 08/24/2023 15:18:19 08/31/2023 14:10:55 Type 2 diabetes mellitus 97044997 E11.9 With some hypoglycem ia.Humulin 70/30 was lowered from 50 units BID to 25U BID and SSI continued. Monitor fingerstic ks, will change from TID to qid, with low dose SS at hs.HgA1C was 6.7 inpt. Bacteremia 0239266 R78.8 1 As above Osteomyeli tis of right foot 2829387497 689154 M86.271 S/P I&D and debridemen t. Vasc. surgeon (Dr. Friedman) felt that all diseased bone was removed.Co ntinue cefazolin 1 gm IV BID until 09/24 to complete 6 wk course.Con tinue wound care as ordered.F/ U with Dr. Friedman as planned. Chronic ki dney disease 610116427 N18.32 Back to baseline.C ontinue to avoid nephrotoxi c meds as able.Monit or labs.Renal consult prn. Gastroesop hageal reflux disease without esophagitis 202547768 K21.9 No current sxs.Contin ue omeprazole 20 mg qdMonitor sxs. Gout 67151391 M10.09 No current sxs.Contin ue allopurino l 100 mg qdMonitor for flare. Hyperlipidemia 24256297 E78.49 Continue fenofibrat e 160 mg qdMonitor as outpt. Hypothyroidism 52512988 E03.8 In hx.TSH WNL in 11/2022Moni tor as outpt Essential hypertension 77576555 I10 BP borderline at times, but acceptable for age.BP goal for this elderly woman is permissive HTN, with SBP<150 and DBP<90Cont inue lasix 20 mg qd, hydralazin e 25 mg BID and metoprolol 25 mg qd.Monitor BP and labs.No need to restart lisinopril at this time Hypomagnesemia 411599557 E83.42 Continue Mg+ 400 mg qd until 08/30, then recheck level Vitamin D deficiency 347 81436 E55.9 Continue ergocalcif denisse 50,000 IU every 14 days.Monit or levels [id number] TATI CURRIE [place] [address] [place] [address] 08/31/2023 11:38:57 09/08/2023 12:37:11 Bacteremia 0880485 R78.81 continuece fazolin 1 gm bid to 2ollow up with vascular Type 2 tiara betes mellitus 26256282 E11.9 200-280's mainlyhumu mahesh/reg 70/30 50 units bidmonitor glucose Chronic ki dney disease 393025018 N18.9 monitor labsavoid nephrotoxi c meds Gastroesop hageal reflux disease without esophagitis 072466358 K21.9 mag ox 400 mg daily to 08/30omepraz ole 20 mg daily Gout 78935586 M10.9 allopurino l 100 mg dailyD3 1250 k85ofhi Hyperlipidemia 47751160 E78.5 fenofibrat e 160 mg daily Hypothyroidism 20358361 E03.9 hx of Essential hypertension 21728534 I10 lasix 20 mg dailyhydra lazine 25 mg bidtoprol 25 mg dailymonit or bplisinopr il stopped in hospital [id number] TATI CURRIE [facility] [address] [place] [address] [place] [address] 09/02/2023 09:40:27 09/08/2023 13:38:51 Bacteremia 8943042 R78.81 continueMS SA right footcefazo mahesh 1 gm bid to 22follow up with vascular Type 2 tiara betes mellitus 76853139 E11.9 200-280's mainlychan ged back to humulin/re g 70/30 50 units bidmonitor glucose Osteomyeli tis of right foot 4430616427 471455 M86.271 S/P I&D and debridemen t. Vasc. surgeon (Dr. Friedman) felt that all diseased bone was removed.Co ntinue cefazolin 1 gm IV BID until 2/ to complete 6 wk course.Con tinue wound care as ordered.F/ U with Dr. Friedman as planned. Edema of l ower extremity 097618887 R60.0 chronic BLEright greater than left [id number] TATI CURRIE [address] [address] 09/07/2023 13:02:41 09/13/2023 15:17:43 Bacteremia 9735584 R78.81 continueMS SA right footcefazo mahesh 1 gm bid to 2ollow up with vascular Type 2 tiara betes mellitus 05425920 E11.9 lispro SSChumulin /reg 70/30 50 units bidmonitor glucose Osteomyeli tis of right foot 3902387036 926780 M86.271 S/P I&D and debridemen t. Vasc. surgeon (Dr. Friedman) felt that all diseased bone was removed.Co ntinue cefazolin 1 gm IV BID until 09/24 to complete 6 wk course.Con tinue wound care as ordered.F/ U with Dr. Friedman as planned. Edema of l ower extremity 158074129 R60.0 chronic BLEright greater than left [id number] TATI CURRIE [address] [address] 09/10/2023 06:52:27 09/15/2023 13:31:46 Bacteremia 1898854 R78.81 continueMS SA right footcefazo mahesh 1 gm bid to 2/2follow up with vascular Type 2 tiara betes mellitus 83263049 E11.9 I spoke with patient today. previously [...] bidmonitor glucose Osteomyeli tis of right foot 3703135139 403038 M86.271 S/P I&D and debridemen t. Vasc. surgeon (Dr. Friedman) felt that all diseased bone was removed.Co ntinue cefazolin 1 gm IV BID until 2/2 to complete 6 wk course.Con tinue wound care as ordered.F/ U with Dr. Friedman as planned. Edema of l ower extremity 448175089 R60.0 chronic BLEright greater than left [id number] TATI CURRIE [facility] [address] [place] [address] [place] [address] 09/14/2023 07:53:08 09/17/2023 08:57:48 Bacteremia 1346183 R78.81 continueMS SA right footcefazo mahesh 1 gm bid to 2/2follow up with vascular Type 2 tiara betes mellitus 13536452 E11.9 I spoke with patient today. previously [...] bidmonitor glucose Osteomyeli tis of right foot 9142677603 344696 M86.271 S/P I&D and debridemen t. Vasc. surgeon (Dr. Friedman) felt that all diseased bone was removed.Co ntinue cefazolin 1 gm IV BID until 2/2 to complete 6 wk course.Con tinue wound care as ordered.F/ U with Dr. Friedman as planned. Edema of l ower extremity 186798248 R60.0 chronic BLEright greater than left [id number] TATI CURRIE [address] [address] 09/17/2023 08:23:28 09/22/2023 11:50:26 Bacteremia 2745659 R78.81 continueMS SA right footcefazo mahesh 1 gm bid to 2/2follow up with vascular Type 2 tiara betes mellitus 88584731 E11.9 lispro SSChumulin /reg 70/30 30 units bidmonitor glucose Osteomyeli tis of right foot 0849086828 348635 M86.271 S/P I&D and debridemen t. Vasc. surgeon (Dr. Friedman) felt that all diseased bone was removed.Co ntinue cefazolin 1 gm IV BID until 2 to complete 6 wk course.Con tinue wound care as ordered.F/ U with Dr. Friedman as planned. Edema of l ower extremity 324670776 R60.0 chronic BLEright greater than left [id number] TATI CURRIE [address] [address] 09/21/2023 07:59:18 09/29/2023 08:59:51 Bacteremia 2902244 R78.81 continueMS SA right footcefazo mahesh 1 gm bid to 2/ollow up with vascular Type 2 tiara betes mellitus 00507053 E11.9 lispro SSChumulin /reg 70/30 30 units bidmonitor glucose Osteomyeli tis of right foot 0296813469 351488 M86.271 S/P I&D and debridemen t. Vasc. surgeon (Dr. Friedman) felt that all diseased bone was removed.Co ntinue cefazolin 1 gm IV BID until 09/24 to complete 6 wk course.Con tinue wound care as ordered.F/ U with Dr. Friedman as planned. Edema of l ower extremity 263738687 R60.0 chronic BLEright greater than left [id number] TATI CURRIE [address] [place] [address] 09/24/2023 12:21:41 09/29/2023 13:31:08 Bacteremia 1337473 R78.81 resolved Type 2 tiara betes mellitus 30947178 E11.9 humulin/re g 70/30 50 units bid Chronic ki dney disease 211612677 N18.9 monitor labsavoid nephrotoxi c meds Gastroesop hageal reflux disease without esophagitis 675156650 K21.9 mag ox 400 mg daily to 08/30omepraz ole 20 mg daily Gout 54968584 M10.9 allopurino l 100 mg dailyD3 1250 b06vcoi Hyperlipidemia 27846183 E78.5 fenofibrat e 160 mg daily Hypothyroidism 30401732 E03.9 TSH WNL in 11/2022Moni tor as outptcurre ntly not on medication . Essential hypertension 57518559 I10 lasix 20 mg dailyhydra lazine 25 mg bidtoprol 25 mg daily Osteomyeli tis of right foot 0568891797 510815 M86.271 S/P I&D and debridemen t. Vasc. surgeon (Dr. Friedman) felt that all diseased bone was removed.co mpleted IV cefazolin 1 gm IV BID 09/24/23Cont inue wound care as ordered.F/ U with Dr. Friedman as planned. Hypomagnesemia 534594141 E83.42 monitor outpt labs Vitamin D deficiency 347 00239 E55.9 Continue ergocalcif denisse 50,000 IU every 14 days.Monit or levels [id number] Janee Davis MD [address] [address] 12/28/2023 15:33:48 01/13/2024 12:52:53 Chronic diastolic heart failure 621267927 I50.32 Appears euvolemic. Continue furosemide 40 mg qd and hydralazin e 25 mg BID.Monito r resp. status, fluid status, wts and labs. Paroxysmal atrial fibrillation 277100005 I48.0 Rate in good control on diltiazem 120 mg qd.Continu e eliquis 5 mg BID for AC.Monitor HR and bleeding risk. Type 2 tiara tatianna mellitus 03626884 E11.9 This AM FBS was 88. Last time she was here fastings tended to be ok, but with high sugars later in the day.HgA1C was 7.1 this AMContinue Humulin 70/30 20U BID and SSI.Monito r fingerstic ks TID Chronic ki dney disease 453438706 N18.32 Back to baseline.C ontinue to avoid nephrotoxi c meds as able.Monit or labs.Renal consult prn. Essential hypertension 32565445 I10 BP borderline at times, but acceptable for age.BP goal for this elderly woman is permissive HTN, with SBP<150 and DBP<90Cont inue meds as above.Rebeca tor BP and labs. Gastroesop hageal reflux disease without esophagitis 802975785 K21.9 No current sxs.Contin ue omeprazole 20 mg qdMonitor sxs. Gout 43808182 M10.09 No current sxs.Contin ue allopurino l 100 mg qdMonitor for flare. Hyperlipidemia 99199530 E78.49 Continue fenofibrat e 160 mg qdMonitor as outpt. Hypothyroidism 91456017 E03.8 In hx.TSH WNL inpt.Monit or as outpt Hypomagnesemia 282531991 E83.42 Continue Mg+ 400 mg BID.Monito r levels Vitamin D deficiency 347 26869 E56.8 Vit D supplement is ordered as cholecalci ferol 5000 IU every 14 days.Is supposed to be ergocalcif denisse 50,000 IU qd, will change.Mon itor levels Anemia 089210717 D64.89 Multifacto rial.Follo ws with Dr. White and gets procrit every few wks (has been irregular due to hospitaliz ations).Mo nitor labs Closed bim alleolar fracture of right ankle 9327186855 4562550 S82.841D Four wks from original injury.Con juany PT/OT for strengthen ing, balance, gait training, safety and function.C ontinue APAP 1000 mg q 4 hrs prn, NTE 3000 mg/dContin ue fall precaution s.Monitor for safety.F/U with ortho as planned. [id number] TATI CURRIE [address] [place] [address] [place] [address] 01/03/2024 13:24:31 01/05/2024 10:19:57 Chronic diastolic heart failure 179440082 I50.32 continue lasix 40 mg dailyconti nue potassium 20 meq daily Paroxysmal atrial fibrillation 814997908 I48.0 Cardizem 120 mg dailyconti nue eliquis 2.5 mg BID Type 2 tiara betes mellitus 28848582 E11.9 With some hypoglycem ia.continu e Humulin 70/30 20 units BID and SSI continued. continue fingerstic ks QID Essential hypertension 11278318 I10 BP goal for this elderly woman is permissive HTN, with SBP<150 and DBP<90Cont inue lasix 40 mg qd, hydralazin e 25 mg BID lasix 40 mg dailyMonit or BP and labs. Open wound of left lower leg 3980669553 0621120 S81.802A patient son reports that she gets wound care at [facility] and she suppose to have calcium alginate and zinc applied to and around left lower extremity wound. He wants this to continue until wound MD can eval.wound MD dorian and treatwill ordered to cleanse wound with NS apply calcium alginate and zinc ben wound. [id number] TATI CURRIE [address] [address] 01/07/2024 14:10:11 01/10/2024 13:39:22 Open wound of left lower leg 9665378175 3413654 S81.802A patient son reports that she gets wound care at [facility] and she suppose to have calcium alginate and zinc applied to and around left lower extremity wound. He wants this to continue until wound MD can eval.wound MD alarcon and treatwill ordered to cleanse wound with NS apply calcium alginate and zinc ben wound. Chronic di astolic heart failure 072411994 I50.32 continue lasix 40 mg dailyconti nue potassium 20 meq daily Paroxysmal atrial fibrillation 889940813 I48.0 Cardizem 120 mg dailyconti nue eliquis 2.5 mg BID Type 2 tiara betes mellitus 62990044 E11.9 With some hypoglycem ia.continu e Humulin 70/30 20 units BID and SSI continued. continue fingerstic ks QID Essential hypertension 85259884 I10 BP goal for this elderly woman is permissive HTN, with SBP<150 and DBP<90Cont inue lasix 40 mg qd, hydralazin e 25 mg BID lasix 40 mg dailyMonit or BP and labs. [id number] TATI CURRIE [address] [address] 01/11/2024 10:33:27 01/13/2024 16:16:44 Open wound of left lower leg 9119505742 9293667 S81.802A patient son reports that she gets wound care at [facility] and she suppose to have calcium alginate and zinc applied to and around left lower extremity wound. He wants this to continue until wound can dorian.wound MD alarcon and quinton ordered to cleanse wound with NS apply calcium alginate and zinc ben wound. Chronic di astolic heart failure 294221247 I50.32 continue lasix 40 mg dailyconti nue potassium 20 meq daily Paroxysmal atrial fibrillation 527139855 I48.0 Cardizem 120 mg dailyconti nue eliquis 2.5 mg BID Type 2 tiara betes mellitus 29462814 E11.9 With some hypoglycem ia.continu e Humulin 70/30 20 units BID and SSI continued. continue fingerstic ks QID Essential hypertension 74038127 I10 BP goal for this elderly woman is permissive HTN, with SBP<150 and DBP<90Cont inue lasix 40 mg qd, hydralazin e 25 mg BID lasix 40 mg dailyMonit or BP and labs. Anemia 383887973 D64.89 H/H trending down this weekstarte d procrit 10/16 and scheduled for bi weeklyunsu re when she last receivedwi ll follow up with patient son. [id number] TATI CURRIE [place] [address] [place] [address] [place] [address] 01/13/2024 10:07:39 01/25/2024 10:52:36 Open wound of left lower leg 4452553950 5712242 S81.802A patient son reports that she gets wound care at [facility] and she suppose to have calcium alginate and zinc applied to and around left lower extremity wound. He wants this to continue until wound can dorian.wound MD alarcon and quinton ordered to cleanse wound with NS apply calcium alginate and zinc ben wound. Chronic di astolic heart failure 726042971 I50.32 continue lasix 40 mg dailyconti nue potassium 20 meq daily Paroxysmal atrial fibrillation 517547082 I48.0 Cardizem 120 mg dailyconti nue eliquis 2.5 mg BID Type 2 tiara betes mellitus 71162252 E11.9 With some hypoglycem ia.continu e Humulin 70/30 20 units BID and SSI continued. continue fingerstic ks QID Essential hypertension 01728455 I10 BP goal for this elderly woman is permissive HTN, with SBP<150 and DBP<90Cont inue lasix 40 mg qd, hydralazin e 25 mg BID lasix 40 mg dailyMonit or BP and labs. Anemia 888444044 D64.89 HX of normochrom ic normocytic anemiaH/H trending down this week - tends to fluctuates tarted procrit 63092 10/16 and scheduled for bi weeklyRece ived doses on 10/27, 11/10, 11/24, 12/19 and 01/11/24 Bimalleola r fracture of ankle 441404787 S82.841A chronic with [facility] arthropath y with deformity ankle and midfoothx of infection with osteomyeli tis August 2023follow ed by [facility]- last seen on 01/07/24- recommend 2 tx option 1.conserva tive treatment wit off loading as much as possible, wear heel protector boot.2. Surgical reconstruc tion [id number] TATI CURRIE [address] [place] [address] 01/20/2024 09:44:29 01/25/2024 11:59:00 Open wound of left lower leg 2843482570 1262310 S81.802A continue calcium alginate and zinc left lower extremity woundwound MD alarcon and quinton ordered to cleanse wound with NS apply calcium alginate and zinc ben wound. Chronic di astolic heart failure 185818220 I50.32 stablecont inue lasix 40 mg dailyconti nue potassium 20 meq daily Paroxysmal atrial fibrillation 408607973 I48.0 HR 69Cardizem 120 mg dailyconti nue eliquis 2.5 mg BID Type 2 tiara betes mellitus 31363266 E11.9 With some hypoglycem ia.continu e Humulin 70/30 20 units BID and SSI continued. continue fingerstic ks QID Anemia 718154443 D64.89 HX of normochrom ic normocytic anemiaH/H trending down this week - tends to fluctuates tarted procrit 47457 10/16 and scheduled for bi weeklyRece ived doses on 10/27, 11/10, 11/24, 12/19 and 01/11/24 Bimalleola r fracture of ankle 538234033 S82.841A chronic with [facility] arthropath y with deformity ankle and midfoothx of infection with osteomyeli tis August 2023follow ed by [facility]- last seen on 01/07/24- recommend 2 tx option 1.conserva tive treatment wit off loading as much as possible, wear heel protector boot.2. Surgical reconstruc tion [id number] TATI CURRIE [address] [place] [address] [place] [address] 01/25/2024 10:02:09 01/31/2024 15:51:53 Open wound of left lower leg 5138582871 5062558 S81.802A continue calcium alginate and zinc left lower extremity woundwound MD alarcon and quinton ordered to cleanse wound with NS apply calcium alginate and zinc ben wound. Chronic di astolic heart failure 666807696 I50.32 continue lasix 40 mg dailyconti nue potassium 20 meq daily Paroxysmal atrial fibrillation 602783634 I48.0 Cardizem 120 mg dailyconti nue eliquis 2.5 mg BID Type 2 tiara betes mellitus 61149051 E11.9 no recent hypoglycem ic events.con tinue Humulin 70/30 20 units BID and SSI continued. continue fingerstic ks QID Anemia [id number] D64.89 recent labs stable,HX of normochrom ic normocytic anemiaH/H trending down this week - tends to fluctuates tarted procrit 92779 10/16 and scheduled for bi weeklyRece ived doses on 10/27, 11/10, 11/24, 12/19 and 01/11/24 Bimalleola r fracture of ankle [id number] S82.841A dressing intact, pain is controlled chronic with charcot arthropath y with deformity ankle and midfoothx of infection with osteomyeli tis August 2023follow ed by [facility]- last seen on 01/07/24- recommend 2 tx option 1.conserva tive treatment wit off loading as much as possible, wear heel protector boot.2. Surgical reconstruc tion [id number] TATI CURRIE [address] [facility] [address] 01/28/2024 15:29:14 02/01/2024 08:26:24 Open wound of left lower leg [id number] S81.802A [facility] with NS apply calcium alginate and zinc ben wound.elev ate left foot/heel when sitting to keep DTI well perfused Chronic di astolic heart failure 214875157 I50.32 continue lasix 40 mg dailyconti nue potassium 20 meq daily Paroxysmal atrial fibrillation 845330730 I48.0 Cardizem 120 mg dailyconti nue eliquis 2.5 mg BID Type 2 tiara betes mellitus 92370833 E11.9 no recent hypoglycem ic events.con tinue Humulin 70/30 20 units BID and SSI continued. continue fingerstic ks QID Anemia 074853085 D64.89 recent labs stable,HX of normochrom ic normocytic anemiacont inue procrit 28621 10/16 and scheduled for bi weekly Bimalleola r fracture of ankle 456736660 S82.841A she [facility] was seen on 01/23 and will f/u in 2 weeksconti michael with current dressing change. 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 Surgical reconstruc tion [id number] TATI CURRIE [address] [facility] [address] 02/01/2024 10:24:39 02/04/2024 08:49:56 Open wound of left lower leg [id number] 1176643 S81.802A continue to cleanse wound with NS apply calcium alginate and zinc ben wound.elev ate left foot/heel when sitting to keep DTI well perfused Chronic di astolic heart failure 938120336 I50.32 continue lasix 40 mg dailyconti nue potassium 20 meq daily Paroxysmal atrial fibrillation 988087686 I48.0 Cardizem 120 mg dailyconti nue eliquis 2.5 mg BID Type 2 tiara betes mellitus 65196847 E11.9 no recent hypoglycem ic events.con tinue Humulin 70/30 20 units BID and SSI continued. continue fingerstic ks QID Anemia 098192139 D64.89 recent labs stable,HX of normochrom ic normocytic anemiacont inue procrit 06713 10/16 and scheduled for bi weekly Bimalleola r fracture of ankle 170567823 S82.841A She [facility] was seen on 01/23 and will f/u in 2 weeksconti nue with current dressing change. 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 Surgical reconstruc tion Chronic ki dney disease 113610187 N18.32 monitor labsavoid nephrotoxi c meds Essential hypertension 62765580 I10 blood pressure has been stable 120-130sBP goal for this elderly woman is permissive HTN, with SBP<150 and DBP<90Cont inue lasix 40 mg qd, hydralazin e 25 mg BID lasix 40 mg dailyMonit or BP and labs. Gout 60680755 M10.09 allopurino l 100 mg dailynot reported recent flare up. [id number] TATI CURRIE [address] [place] [address] 02/04/2024 09:44:41 02/07/2024 14:37:26 Open wound of left lower leg [id number] 2542410 S81.802A continue to cleanse wound with NS apply calcium alginate and zinc ben wound.elev ate left foot/heel when sitting to keep DTI well perfused Chronic di astolic heart failure 688005003 I50.32 euvolemicc ontinue lasix 40 mg dailyconti nue potassium 20 meq daily Paroxysmal atrial fibrillation 373260006 I48.0 Cardizem 120 mg dailyconti nue eliquis 2.5 mg BID Type 2 tiara betes mellitus 74784972 E11.9 BGLs mainly under 200's, a few noted in the 400s. patient and son are very particular about insulin dosing, so will not adjust.con tinue Humulin 70/30 20 units BID and SSI continued. continue fingerstic ks QID Anemia 915564979 D64.89 continue procrit 31447 10/16 and scheduled for bi weekly Bimalleola r fracture of ankle 191337163 S82.841A She [facility] was seen on 01/23 and [...] protector boot.2. Surgical reconstruc tion Essential hypertension 87892993 I10 BP goal for this elderly woman is permissive HTN, with SBP<150 and DBP<90Cont inue lasix 40 mg qd, hydralazin e 25 mg BID lasix 40 mg dailyMonit or BP and labs. [id number] TATI CURRIE [address] [place] [address] 02/07/2024 11:53:48 02/09/2024 16:49:24 Open wound of left lower leg [id number] 2486259 S81.802A continue to cleanse wound with NS apply calcium alginate and zinc ben wound.elev ate left foot/heel when sitting to keep DTI well perfused Chronic di astolic heart failure 459115694 I50.32 continue lasix 40 mg dailyconti nue potassium 20 meq daily Paroxysmal atrial fibrillation 953424843 I48.0 Cardizem 120 mg dailyconti nue eliquis 2.5 mg BID Type 2 tiara betes mellitus 67352226 E11.9 continue Humulin 70/30 20 units BID and SSI continued. continue fingerstic ks QID Anemia 684169988 D64.89 continue procrit 74254 10/16 and scheduled for bi weekly Essential hypertension 18218158 I10 Continue lasix 40 mg qd, hydralazin e 25 mg BID lasix 40 mg dailyMonit or BP and labs. [id number] TATI CURRIE [address] [address] 02/10/2024 09:22:17 02/16/2024 10:42:27 Open wound of left lower leg [id number] 6324205 S81.802A continue to cleanse wound with NS apply calcium alginate and zinc ben wound. PCC updatedele vate left foot/heel when sitting to keep DTI well perfused Chronic di astolic heart failure 206556447 I50.32 continue lasix 40 mg dailyconti nue potassium 20 meq daily Paroxysmal atrial fibrillation 249688571 I48.0 Cardizem 120 mg dailyconti nue eliquis 2.5 mg BID Type 2 tiara betes mellitus 78672654 E11.9 continue Humulin 70/30 20 units BID and SSI continued. continue fingerstic ks QIDno reported hypo/hyper glycemic events. Essential hypertension 24768235 I10 Continue lasix 40 mg qd, hydralazin e 25 mg BID lasix 40 mg dailyMonit or BP and labs. [id number] Janee Davis MD [address] [address] 02/14/2024 21:04:27 03/14/2024 07:28:32 Chronic diastolic heart failure 783990678 I50.32 Appears euvolemic. Continue lasix 40 mg qd and KCl 20 meq qd to prevent hypokalemi a.Monitor resp. status, fluid status, wts and labs. Paroxysmal atrial fibrillation 927936550 I48.0 Rate in good control on meds as above.Cont inue eliquis 2.5 mg BID for AC.Monitor HR and bleeding risk. Type 2 tiara betes mellitus 37033710 E11.9 In adequate control.Co ntinue Humulin 70/30 20U BID and SSIContinu e fingerstic ks QID Essential hypertension 12313669 I10 In good control.Co ntinue lasix 40 mg qd, hydralazin e 25 mg BID, diltiazem 120 mg qd, and lasix 40 mg qdMonitor BP and labs. 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 Essential hypertension 24782669 I10 Continue lasix 40 mg qd, hydralazin e 25 mg BID lasix 40 mg dailyMonit or BP and labs. Chronic di astolic heart failure 061072803 I50.32 continue lasix 40 mg dailyconti nue potassium 20 meq daily Paroxysmal atrial fibrillation 462794172 I48.0 Cardizem 120 mg dailyconti nue eliquis 2.5 mg BID Type 2 tiara betes mellitus 00244026 E11.9 continue Humulin 70/30 20 units BID and SSI continued. continue fingerstic ks QIDno reported hypo/hyper glycemic events. Chronic ki dney disease 022298030 N18.32 Back to baseline.C ontinue to avoid nephrotoxi c meds as able.Monit or labs.Renal consult prn. Closed bim alleolar fracture of right ankle [id number] 7944630 S82.841D Continue APAP 1000 mg q 4 hrs prn, NTE 3000 mg/dContin ue fall precaution s.Monitor for safety.F/U with ortho Gastroesop hageal reflux disease without esophagitis 983773035 K21.9 Continue omeprazole 20 mg qd Gout 15888296 M10.09 Continue allopurino l 100 mg qdMonitor for flare. Hyperlipidemia 69618130 E78.49 Continue fenofibrat e 160 mg qdMonitor as outpt. Hypothyroidism 28970362 E03.8 not on medsTSH WNL inpt.Monit or as outpt Hypomagnesemia 545416286 E83.42 Continue Mg+ 400 mg BID.Monito r levels Vitamin D deficiency 347 58507 E56.8 ergocalcif denisse 50,000 IU qdMonitor levels Anemia 183587894 D64.89 Multifacto rial.justo nue procrit 20043 bi weekly Health Concerns Section Related Observation LastModified by Organization Detai ls LastModified Time None Recorded Concern Status LastModified by Organization Details LastModified Time None Recorded Advance Directives Directive Y: Payers Insurance Date Sequence Insurance Name Policy Number Policy Bravo Covered Member ID Bravo Member ID Guarantor Name 01/25/2024 1 [place] [employer] Susan Laurent [id number] Susannicolas Rodríguezchiki 03/14/2024 2 [place] [id number] Susan Rodríguezchiki [id number] Susan Rodríguezchiki Notes Date Note Type Note Provider Name [...] broke her right ankle, most recently at [facility] for a CHF exacerbation.She initially presented to the [facility] on 11/26 after an unknown injury. Found to have an Acute displaced bimalleolar fracture with ankle mortise disruption. Complicated by chronic pain from right foot Charcot arthropathy. She was splinted and instructed in strict NWB status and d/c to [facility]. Of note she had just been dxed with new onset Afib on 11/24 and started on diltiazem and apixaban.Returned to [facility] on 12/13, several days after d/c from [facility], because of difficulty ambulating at home and unable to help her due to his own issues. D/C on 12/15 to [facility].Was sent to the [facility] ED on 12/17 because of SOB and [...] acute nursing concerns. TATI CURRIE [address] [facility], [address], [place], [address], [facility] [place] 02/04/2024 11:01:05 02/07/2024 text/html This is an 88 yo woman seen today for acute rounding visit. 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 Patient has been in and out of rehabs and hosp since 11/26 when she broke her right ankle, most recently at [facility] for a CHF exacerbation.She initially presented to the [facility] on 11/26 after an unknown injury. Found to have an Acute displaced bimalleolar fracture with ankle mortise disruption. Complicated by chronic pain from right foot Charcot arthropathy. She was splinted and instructed in strict NWB status and d/c to [facility]. Of note she had just been dxed with new onset Afib on 11/24 and started on diltiazem and apixaban.Returned to [facility] on 12/13, several days after d/c from [facility], because of difficulty ambulating at home and unable to help her due to his own issues. D/C on 12/15 to [facility].Was sent to the [facility] on 12/17 because of SOB and AMS.Labs and vitals were WNL (except Na+147 and BNP 222) CXR showed pulmonary edema with small pleural effusions. Neg for RSV/influenza and covid.EKG showed NSR and she was continued on diltiazem and apixaban.She was txed with IV lasix and K+A left dhillon wound was followed by wound care. TATI CURRIE [address] [facility], [address], [place], [address], [facility] [place] 02/07/2024 14:37:38 02/10/2024 text/html This is an [...] s/p MSSA sepsis. TATI CURRIE [address] [facility], [address], [place], [address], [facility] 02/10/2024 12:44:47 02/14/2024 text/html I am seeing this 88 yo woman for an acute visit today to f/u on RLE fx, ulcers and NWB status.Son has had concerns about mother refusing wound care and this is being addressed by nursing staff.She was seen at the [facility] wound clinic on 02/06 and it was [...] s/p MSSA sepsis. Janee Davis MD [address] [facility], [address], [place], [address], [facility] 03/11/2024 19:10:29 02/18/2024 text/html This is an 88 yo woman due for discharge today. Patient has been in and out of rehabs and hosp since 11/26 when she broke her right ankle, most recently at [facility] for a CHF exacerbation.She initially presented to the [facility] on 11/26 after an unknown injury. Found to have a right Acute displaced bimalleolar fracture with ankle mortise disruption. Complicated by chronic pain from right foot Charcot arthropathy. She was splinted and instructed in strict NWB status and d/c to [facility]. Of note she had just been dxed with new onset Afib on 11/24 and started on diltiazem and apixaban.Returned to [facility] on 12/13, several days after d/c from [facility], because of difficulty ambulating at home and unable to help her due to his own issues. D/C on 12/15 to [facility].Was sent to the [facility] ED on 12/17 because of SOB and AMS.Labs and vitals were WNL (except Na+147 and BNP 222) CXR showed pulmonary edema with small pleural effusions. Neg for RSV/influenza and covid.EKG showed NSR and she was continued on diltiazem and apixaban.She was txed with IV lasix and K+A left dhillon wound was followed by wound care.She was transferred to [facility] was done on 12/23 [...] s/p MSSA sepsis. TATI CURRIE [address] [facility], [address], [place], [address], [facility] [place] 02/18/2024 14:26:35 OBGyn Episode No OBEpisode recorded.
== END 2025-02-28 11:18 | disposition home or self-care (01) ==
LOC: HO.LAB 11:17
PROVIDERS: Visit Provider Internal Medicine Medical Oncology
DX: D64.9 Anemia, unspecified (principal)
CPT/HCPCS: 36415; 85025

== ENCOUNTER 2025-03-13 11:25 | Outpatient (REF) | payer MEDICARE, SELFPAY ==
[2025-03-13 11:39] LABS: MANUAL DIFF FLAG NO
[2025-03-13 11:42] LABS: Hematocrit 34.4 % (37.0-47.0); Hemoglobin 11.0 g/dl (12.0-16.0); Imm Gran Abs Auto 0.03 X10*3/uL (0.00-0.03); Imm Gran Pct Auto 0.4 % (0.0-0.4); Lymphocytes Absolute Auto 1.5 X10*3/uL (1.2-4.9); Mean Corpuscular HGB Conc 32.0 g/dl (31.0-35.0); Mean Corpuscular Hemoglobin 28.3 pg (27.0-33.0); Mean Corpuscular Volume 88.4 fL (80.0-98.0); NRBC Abs Auto 0.000 X10*3/uL (0.0-0.012); NRBC Pct Auto 0.0 /100WBC (0.0-0.2); Platelet Count 249 X10*3/uL (160-400); Red Blood Count 3.89 X10*6/uL (4.20-5.50); White Blood Count 7.5 X10*3/uL (4.8-10.8)
--- OUTSIDE RECORDS SUMMARY | 2025-03-13 12:43 | XMS_ITS | Clinical Summary ---
Author Organization [facility] Address [address] [place] [address] Care Team Providers Care Drawer Liner Name Role Phone Christopher Zamudio MD Primary Care Provider [phone] Surgical History Surgery Date Site/Laterality Comments CHOLECYSTECTOMY PROCEDURE: HISTORICAL CHOLECYSTECTOMY; COMMENT: 1981 LEG SURGERY 1985 PROCEDURE: HISTORICAL LEG SURGERY; COMMENT: Vein ablation APPENDECTOMY PROCEDURE: HISTORICAL APPENDECTOMY; COMMENT: 1981 OTHER SURGICAL HISTORY 08/18/2023 Right PROCEDURE: CT INCISION BONE CORTEX FOOT; COMMENT: right, 5th metatarsal OTHER SURGICAL HISTORY 08/18/2023 Right PROCEDURE: CT BIOPSY BONE OPEN SUPERFICIAL; COMMENT: right, 5th proximal phalanx OTHER SURGICAL HISTORY 08/18/2023 Right PROCEDURE: CT SECONDARY CLOSURE SURG WOUND/DEHSN XTNSV/COMP Medical History [...] (HCC); COMMENT: Seen at [facility]. History of cataract 10/17/2020 DX:History o f cataract Type 2 diabetes mellitus wit h cataract (CMS/HCC V24, CMS/HCC V28) 10/17/2020 DX:Type 2 diabetes mellitus with cataract ([facility]) Arrhythmia 10/17/2020 DX:Arrhythmia Family History Medical [...] 10/22/2020, 09/23/2020 Cholesterol Screening (Lipid Panel) 07/26/2022 Falls Risk Assessment 07/26/2022 Osteoporosis Screening (Bone Density Screening) 07/26/2022 Social Influencers of Health Screening 07/26/2022 Diabetes: Blood Sugar Contro l Test (HGBA1C) 08/07/2022 Hypertension/CHF/CAD Annual BMP Blood Test 08/07/2022 Depression Screening 08/23/2024 Influenza Vaccine (#1) 2025 HIB Vaccines Aged [...] Documents on File Type Date Recorded Patient Personnel Specialist Expl anation Health Care Decision (hx) 08/20/2023 AD العراقي DIRECTIVE Health Care Decision (hx) 08/20/2023 AD العراقي DIRECTIVE Care Teams Drawer Liner Relationship Specialty Start Date End Date Christopher Zamudio MD [address] [place] [address] [place] [address] PCP - General 09/10/16
--- OUTSIDE RECORDS SUMMARY | 2025-03-13 12:43 | XMS_ITS | Clinical Summary ---
Author Organization [facility] Address [address] [place] [address] [address] [place] [address] Care Team Providers Care Mechanic Marine Engine Name Role Phone Unavailable Primary Care Provider [...]
--- OUTSIDE RECORDS SUMMARY | 2025-03-13 12:43 | XMS_ITS | Data Portability ---
Author Organization [facility], Main Office Address [address] [address] [address] [place] [address] Care Team Providers Care Rinkman Name Role Phone TISHA MANZO Primary Care Provider [phone] YARA CISNEROS 2ND FLOOR OTHER Assessment Encounter [...] Address Organization Details Recorded Time Bacteremi a 2474300 Active 2022 MSSA foot infection Not Available [facility] 4 02:47:47 Type 2 diabetes mellitus 92554886 Active 2022 Not Available [facility] 4 02:47:47 Hypothyro idism 38949945 Active 2022 Not Available [facility] 4 02:47:47 Chronic kidney disease 628967377 Active 2022 Not Available [facility] 4 02:47:47 Gout 62351679 Active 2022 Not Available [facility] 4 02:47:47 Gastroeso phageal reflux disease without esophagit is 593288993 Active 2022 Not Available [facility] 4 02:47:47 Hyperlipi demia 09266500 Active 2022 Not Available [facility] 4 02:47:47 Essential hypertens ion 27671856 Active 2022 Not Available [facility] 4 02:47:47 Hypomagne semia 647915198 Active 2023 Not Available [facility] 4 02:47:47 Vitamin D deficienc y 83644168 Active 2023 Not Available [facility] 4 02:47:47 Chronic diastolic heart failure 011675348 Active 2023 Janee Davis MD [address] [facility] [address], [facility] [address], [place], [address] , [facility] 4 10:48:17 Anemia 764559383 Active 2023 Janee Davis MD [address] [facility], [address], [place], [address] , [facility] 4 11:10:38 Bimalleol ar fracture of ankle 274739740 Active 2023 TATI CURRIE [address] [facility] [address], [facility] [address], [place], [address] , [facility] Narrative 4 14:06:55 Stasis dermatiti s and 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 Please review this document and add these problems to the patient's chart manually as needed. Problem Notes None recorded. Medical Equipment None Reported. Allergies Allergen ID Allergen Name Allergen Category Reaction Reaction Severity Criticality Documentation Date Start Date Code Code System Note Provider Name and Address Organization Details Recorded Time 23834 codeine medicatio n Not available Not available Not available 08/20/2023 2670 RxNorm ALVARADO DEL CID NP [address] [facility] [address], [address], [place], [address], [facility] 3 10:53:18 Vitals Date Recorded Body height Heart rate Respiratory rate Body temperature Systolic And Diastolic Provider Name and Address Organization Details Last Updated DateTime 4 170.18 cm 80 /min 16 /min 98 [degF] 129/78 mm[Hg] TATI CURRIE [address] [facility] [address], [address], [place], [address], [facility] 4 10:52:49 Date Recorded Body height Body temperature Respiratory rate Heart rate Systolic And Diastolic Provider Name and Address Organization Details Last Updated DateTime 4 170.18 cm 97.3 [degF] 18 /min 68 /min 122/68 mm[Hg] TATI CURRIE [address] [facility] [address], [address], [place], [address], [facility] 4 14:33:03 Date Recorded Body height Heart rate Respiratory rate Body temperature Systolic And Diastolic Provider Name and Address Organization Details Last Updated DateTime 4 170.18 cm 74 /min 18 /min 98 [degF] 132/74 mm[Hg] TATI CURRIE [address] [facility] [address], [address], [place], [address], [facility] 4 12:19:44 Date Recorded Body height Body mass index (BMI) Body weight Heart rate Respiratory rate Body temperature Oxygen saturation Oxygen saturation in Arterial blood by Pulse oximetry Systolic And Diastolic Provider Name and Address Organization Details Last Updated DateTime 4 170.18 cm 31.6 kg/m2 98096.6 6 g 79 /min 18 /min 97.4 [degF] 100 % 100 % 141/75 mm[Hg] Janee Davis MD [address] [facility] [address], [address], [place], [address], [facility] 4 21:07:19 Date Recorded Body height Heart rate Respiratory rate Body temperature Oxygen saturation Oxygen saturation in Arterial blood by Pulse oximetry Systolic And Diastolic Provider Name and Address Organization Details Last Updated DateTime 4 170.18 cm 79 /min 18 /min 98 [degF] 100 % 100 % 141/75 mm[Hg] TATI CURRIE [address], [address], [place], [address], [facility] 4 14:26:02 Social History Question Answer Notes LastModified by [employer] Details LastModified Time Tobacco Smoking Status Never Smoker ALVARADO DEL CID NP [address], [address], [place], [address], [facility] 08/20/2023 11:16:58 Do You Have An Advance Directive? Yes Information not available 08/20/2023 What Is Your Code Status? Full Code Information not available 08/20/2023 Where Do You Live? SingleLevelHouse Lives With Son, 3-4 Steps To Enter Information not available 08/24/2023 Legal Guardian? No Informati on not available 08/24/2023 Do You Have A Medical Power Of Television Presenter? Yes Information not available 08/24/2023 What Was [...] Functional Status Question Answer Note LastModified by [employer] Details LastModified Time Do you use any [...] adjuvanted, quadrivalent, PF 3 completed Not Available [facility] 09/30/2023 02:47:47 Td(adult) unspecified formulation 1 [facility]28[facility] 16:20:20 SARS-COV-2 (COVID-19) vaccine, UNSPECIFIED 1 [facility] 12/28/2023 16:20:43 SARS-COV-2 (COVID-19) vaccine, UNSPECIFIED 1 completed [facility] 12/28/2023 16:20:50 pneumococcal polysaccharide PPV23 1 completed [facility] 12/28/2023 16:21:57 SARS-COV-2 (COVID-19) vaccine, UNSPECIFIED 1 completed [facility] 12/28/2023 16:22:45 Past Encounters Encounter ID Performer Location Encounter Start Date Encounter Closed Date Diagnosis/Indication Diagnosis SNOMED-CT Code Diagnosis ICD10 Code Diagnosis Note [id number] SCOTT NOBLES [address] [place] [address] 08/20/2023 09:52:59 08/31/2023 13:27:41 Bacteremia 8681544 R78.81 flush picc qshiftcefa zolin 1 gm bid to 2/2followu p with vascular as planned Type 2 tiara betes mellitus 81916997 E11.9 humulin/re g 70/30 50 units bidmonitor glucose Chronic ki dney disease 747658827 N18.9 monitor labsavoid nephrotoxi c meds Gastroesop hageal reflux disease without esophagitis 249603799 K21.9 mag ox 400 mg daily to 8omepraz ole 20 mg daily Gout 67527867 M10.9 allopurino l 100 mg dailyD3 1250 u48ylkd Hyperlipidemia 01297278 E78.5 fenofibrat e 160 mg daily Hypothyroidism 37092378 E03.9 hx of Essential hypertension 94340378 I10 lasix 20 mg dailyhydra lazine 25 mg bidtoprol 25 mg dailymonit or bplisinopr il stopped in hospital [id number] ALVARADO DEL CID NP [address] [place] [address] 08/24/2023 13:44:02 08/25/2023 03:52:21 Type 2 diabetes mellitus 05588755 E11.9 humulin/re g 70/30 50 units bidmonitor glucose Bacteremia 2559749 R78.8 1 flush picc qshiftcefa zolin 1 gm bid to 2/2followu p with vascular as planned [id number] Janee Davis MD [address] [place] [address] 08/24/2023 15:18:19 08/31/2023 14:10:55 Type 2 diabetes mellitus 80636639 E11.9 With some hypoglycem ia.Humulin 70/30 was lowered from 50 units BID to 25U BID and SSI continued. Monitor fingerstic ks, will change from TID to qid, with low dose SS at hs.HgA1C was 6.7 inpt. Bacteremia 3724221 R78.8 1 As above Osteomyeli tis of right foot 1114503543 025634 M86.271 S/P I&D and debridemen t. Vasc. surgeon (Dr. Friedman) felt that all diseased bone was removed.Co ntinue cefazolin 1 gm IV BID until 09/24 to complete 6 wk course.Con tinue wound care as ordered.F/ U with Dr. Friedman as planned. Chronic ki dney disease 857926276 N18.32 Back to baseline.C ontinue to avoid nephrotoxi c meds as able.Monit or labs.Renal consult prn. Gastroesop hageal reflux disease without esophagitis 830114440 K21.9 No current sxs.Contin ue omeprazole 20 mg qdMonitor sxs. Gout 70762161 M10.09 No current sxs.Contin ue allopurino l 100 mg qdMonitor for flare. Hyperlipidemia 65730951 E78.49 Continue fenofibrat e 160 mg qdMonitor as outpt. Hypothyroidism 52270028 E03.8 In hx.TSH WNL in 11/2022Moni tor as outpt Essential hypertension 79419098 I10 BP borderline at times, but acceptable for age.BP goal for this elderly woman is permissive HTN, with SBP<150 and DBP<90Cont inue lasix 20 mg qd, hydralazin e 25 mg BID and metoprolol 25 mg qd.Monitor BP and labs.No need to restart lisinopril at this time Hypomagnesemia 481216993 E83.42 Continue Mg+ 400 mg qd until 08/30, then recheck level Vitamin D deficiency 347 48079 E55.9 Continue ergocalcif denisse 50,000 IU every 14 days.Monit or levels [id number] TATI CURRIE [place] [address] [place] [address] 08/31/2023 11:38:57 09/08/2023 12:37:11 Bacteremia 7955380 R78.81 continuece fazolin 1 gm bid to 2ollow up with vascular Type 2 tiara betes mellitus 04102270 E11.9 200-280's mainlyhumu mahesh/reg 70/30 50 units bidmonitor glucose Chronic ki dney disease 549753041 N18.9 monitor labsavoid nephrotoxi c meds Gastroesop hageal reflux disease without esophagitis 520386038 K21.9 mag ox 400 mg daily to 08/30omepraz ole 20 mg daily Gout 98956640 M10.9 allopurino l 100 mg dailyD3 1250 h24qgso Hyperlipidemia 92550688 E78.5 fenofibrat e 160 mg daily Hypothyroidism 89352264 E03.9 hx of Essential hypertension 13187856 I10 lasix 20 mg dailyhydra lazine 25 mg bidtoprol 25 mg dailymonit or bplisinopr il stopped in hospital [id number] [facility] CURRIE [facility] [address] [place] [address] [place] [address] 09/02/2023 09:40:27 09/08/2023 13:38:51 Bacteremia 7237228 R78.81 continueMS SA right footcefazo mahesh 1 gm bid to 22follow up with vascular Type 2 tiara betes mellitus 60451838 E11.9 200-280's mainlychan ged back to humulin/re g 70/30 50 units bidmonitor glucose Osteomyeli tis of right foot 6778437807 854310 M86.271 S/P I&D and debridemen t. Vasc. surgeon (Dr. Friedman) felt that all diseased bone was removed.Co ntinue cefazolin 1 gm IV BID until 2/ to complete 6 wk course.Con tinue wound care as ordered.F/ U with Dr. Friedman as planned. Edema of l ower extremity 412380441 R60.0 chronic BLEright greater than left [id number] TATI CURRIE [address] [address] 09/07/2023 13:02:41 09/13/2023 15:17:43 Bacteremia 0556350 R78.81 continueMS SA right footcefazo mahesh 1 gm bid to 2ollow up with vascular Type 2 tiara betes mellitus 32724040 E11.9 lispro SSChumulin /reg 70/30 50 units bidmonitor glucose Osteomyeli tis of right foot 6623507039 980601 M86.271 S/P I&D and debridemen t. Vasc. surgeon (Dr. Friedman) felt that all diseased bone was removed.Co ntinue cefazolin 1 gm IV BID until 09/24 to complete 6 wk course.Con tinue wound care as ordered.F/ U with Dr. Friedman as planned. Edema of l ower extremity 034591174 R60.0 chronic BLEright greater than left [id number] TATI CURRIE [address] [address] 09/10/2023 06:52:27 09/15/2023 13:31:46 Bacteremia 8276178 R78.81 continueMS SA right footcefazo mahesh 1 gm bid to 2/2follow up with vascular Type 2 tiara betes mellitus 95558036 E11.9 I spoke with patient today. previously [...] bidmonitor glucose Osteomyeli tis of right foot 1309528035 917337 M86.271 S/P I&D and debridemen t. Vasc. surgeon (Dr. Friedman) felt that all diseased bone was removed.Co ntinue cefazolin 1 gm IV BID until 2/2 to complete 6 wk course.Con tinue wound care as ordered.F/ U with Dr. Friedman as planned. Edema of l ower extremity 330325628 R60.0 chronic BLEright greater than left [id number] [facility]ATI CURRIE [facility] [address] [place] [address] [place] [address] 09/14/2023 07:53:08 09/17/2023 08:57:48 Bacteremia 8088350 R78.81 continueMS SA right footcefazo mahesh 1 gm bid to 2/2follow up with vascular Type 2 tiara betes mellitus 43950334 E11.9 I spoke with patient today. previously [...] bidmonitor glucose Osteomyeli tis of right foot 2208903467 040140 M86.271 S/P I&D and debridemen t. Vasc. surgeon (Dr. Friedman) felt that all diseased bone was removed.Co ntinue cefazolin 1 gm IV BID until 2/2 to complete 6 wk course.Con tinue wound care as ordered.F/ U with Dr. Friedman as planned. Edema of l ower extremity 858508442 R60.0 chronic BLEright greater than left [id number] TATI CURRIE [address] [address] 09/17/2023 08:23:28 09/22/2023 11:50:26 Bacteremia 3154361 R78.81 continueMS SA right footcefazo mahesh 1 gm bid to 2/2follow up with vascular Type 2 tiara betes mellitus 34155860 E11.9 lispro SSChumulin /reg 70/30 30 units bidmonitor glucose Osteomyeli tis of right foot 7407276390 492690 M86.271 S/P I&D and debridemen t. Vasc. surgeon (Dr. Friedman) felt that all diseased bone was removed.Co ntinue cefazolin 1 gm IV BID until 2 to complete 6 wk course.Con tinue wound care as ordered.F/ U with Dr. Friedman as planned. Edema of l ower extremity 582514070 R60.0 chronic BLEright greater than left [id number] TATI CURRIE [address] [address] 09/21/2023 07:59:18 09/29/2023 08:59:51 Bacteremia 4594622 R78.81 continueMS SA right footcefazo mahesh 1 gm bid to 2/ollow up with vascular Type 2 tiara betes mellitus 80514350 E11.9 lispro SSChumulin /reg 70/30 30 units bidmonitor glucose Osteomyeli tis of right foot 8661433568 545816 M86.271 S/P I&D and debridemen t. Vasc. surgeon (Dr. Friedman) felt that all diseased bone was removed.Co ntinue cefazolin 1 gm IV BID until 09/24 to complete 6 wk course.Con tinue wound care as ordered.F/ U with Dr. Friedman as planned. Edema of l ower extremity 966975503 R60.0 chronic BLEright greater than left [id number] TATI CURRIE [address] [place] [address] 09/24/2023 12:21:41 09/29/2023 13:31:08 Bacteremia 3576513 R78.81 resolved Type 2 tiara betes mellitus 10074471 E11.9 humulin/re g 70/30 50 units bid Chronic ki dney disease 310703627 N18.9 monitor labsavoid nephrotoxi c meds Gastroesop hageal reflux disease without esophagitis 394335070 K21.9 mag ox 400 mg daily to 08/30omepraz ole 20 mg daily Gout 10882641 M10.9 allopurino l 100 mg dailyD3 1250 n22xddu Hyperlipidemia 44057179 E78.5 fenofibrat e 160 mg daily Hypothyroidism 03451657 E03.9 TSH WNL in 11/2022Moni tor as outptcurre ntly not on medication . Essential hypertension 46697239 I10 lasix 20 mg dailyhydra lazine 25 mg bidtoprol 25 mg daily Osteomyeli tis of right foot 2894682718 526311 M86.271 S/P I&D and debridemen t. Vasc. surgeon (Dr. Friedman) felt that all diseased bone was removed.co mpleted IV cefazolin 1 gm IV BID 09/24/23Cont inue wound care as ordered.F/ U with Dr. Friedman as planned. Hypomagnesemia 926613358 E83.42 monitor outpt labs Vitamin D deficiency 347 92835 E55.9 Continue ergocalcif denisse 50,000 IU every 14 days.Monit or levels [id number] Janee Davis MD [address] [address] 12/28/2023 15:33:48 01/13/2024 12:52:53 Chronic diastolic heart failure 355143391 I50.32 Appears euvolemic. Continue furosemide 40 mg qd and hydralazin e 25 mg BID.Monito r resp. status, fluid status, wts and labs. Paroxysmal atrial fibrillation 367655093 I48.0 Rate in good control on diltiazem 120 mg qd.Continu e eliquis 5 mg BID for AC.Monitor HR and bleeding risk. Type 2 tiara tatianna mellitus 67677160 E11.9 This AM FBS was 88. Last time she was here fastings tended to be ok, but with high sugars later in the day.HgA1C was 7.1 this AMContinue Humulin 70/30 20U BID and SSI.Monito r fingerstic ks TID Chronic ki dney disease 290576001 N18.32 Back to baseline.C ontinue to avoid nephrotoxi c meds as able.Monit or labs.Renal consult prn. Essential hypertension 97286288 I10 BP borderline at times, but acceptable for age.BP goal for this elderly woman is permissive HTN, with SBP<150 and DBP<90Cont inue meds as above.Rebeca tor BP and labs. Gastroesop hageal reflux disease without esophagitis 430784610 K21.9 No current sxs.Contin ue omeprazole 20 mg qdMonitor sxs. Gout 83059852 M10.09 No current sxs.Contin ue allopurino l 100 mg qdMonitor for flare. Hyperlipidemia 45019901 E78.49 Continue fenofibrat e 160 mg qdMonitor as outpt. Hypothyroidism 43235357 E03.8 In hx.TSH WNL inpt.Monit or as outpt Hypomagnesemia 882623799 E83.42 Continue Mg+ 400 mg BID.Monito r levels Vitamin D deficiency 347 27655 E56.8 Vit D supplement is ordered as cholecalci ferol 5000 IU every 14 days.Is supposed to be ergocalcif denisse 50,000 IU qd, will change.Mon itor levels Anemia 674492401 D64.89 Multifacto rial.Follo ws with Dr. White and gets procrit every few wks (has been irregular due to hospitaliz ations).Mo nitor labs Closed bim alleolar fracture of right ankle 5800796971 7565021 S82.841D Four wks from original injury.Con juany PT/OT for strengthen ing, balance, gait training, safety and function.C ontinue APAP 1000 mg q 4 hrs prn, NTE 3000 mg/dContin ue fall precaution s.Monitor for safety.F/U with ortho as planned. [id number] TATI CURRIE [address] [place] [address] [place] [address] 01/03/2024 13:24:31 01/05/2024 10:19:57 Chronic diastolic heart failure 801258472 I50.32 continue lasix 40 mg dailyconti nue potassium 20 meq daily Paroxysmal atrial fibrillation 836857145 I48.0 Cardizem 120 mg dailyconti nue eliquis 2.5 mg BID Type 2 tiara betes mellitus 49416977 E11.9 With some hypoglycem ia.continu e Humulin 70/30 20 units BID and SSI continued. continue fingerstic ks QID Essential hypertension 03188717 I10 BP goal for this elderly woman is permissive HTN, with SBP<150 and DBP<90Cont inue lasix 40 mg qd, hydralazin e 25 mg BID lasix 40 mg dailyMonit or BP and labs. Open wound of left lower leg 1455259642 2495198 S81.802A patient son reports that she gets wound care at [facility] and she suppose to have calcium alginate and zinc applied to and around left lower extremity wound. He wants this to continue until wound MD can eval.wound MD dorian and treatwill ordered to cleanse wound with NS apply calcium alginate and zinc ben wound. [id number] TATI CURRIE [address] [address] 01/07/2024 14:10:11 01/10/2024 13:39:22 Open wound of left lower leg 9975458209 0326907 S81.802A patient son reports that she gets wound care at [facility] and she suppose to have calcium alginate and zinc applied to and around left lower extremity wound. He wants this to continue until wound MD can eval.wound MD alarcon and treatwill ordered to cleanse wound with NS apply calcium alginate and zinc ben wound. Chronic di astolic heart failure 122130894 I50.32 continue lasix 40 mg dailyconti nue potassium 20 meq daily Paroxysmal atrial fibrillation 276858227 I48.0 Cardizem 120 mg dailyconti nue eliquis 2.5 mg BID Type 2 tiara betes mellitus 40063864 E11.9 With some hypoglycem ia.continu e Humulin 70/30 20 units BID and SSI continued. continue fingerstic ks QID Essential hypertension 69542726 I10 BP goal for this elderly woman is permissive HTN, with SBP<150 and DBP<90Cont inue lasix 40 mg qd, hydralazin e 25 mg BID lasix 40 mg dailyMonit or BP and labs. [id number] TATI CURRIE [address] [address] 01/11/2024 10:33:27 01/13/2024 16:16:44 Open wound of left lower leg 6110160427 7252972 S81.802A patient son reports that she gets wound care at [facility] and she suppose to have calcium alginate and zinc applied to and around left lower extremity wound. He wants this to continue until wound can dorian.wound MD alarcon and quinton ordered to cleanse wound with NS apply calcium alginate and zinc ben wound. Chronic di astolic heart failure 902843919 I50.32 continue lasix 40 mg dailyconti nue potassium 20 meq daily Paroxysmal atrial fibrillation 856066568 I48.0 Cardizem 120 mg dailyconti nue eliquis 2.5 mg BID Type 2 tiara betes mellitus 35250464 E11.9 With some hypoglycem ia.continu e Humulin 70/30 20 units BID and SSI continued. continue fingerstic ks QID Essential hypertension 16343007 I10 BP goal for this elderly woman is permissive HTN, with SBP<150 and DBP<90Cont inue lasix 40 mg qd, hydralazin e 25 mg BID lasix 40 mg dailyMonit or BP and labs. Anemia 668626656 D64.89 H/H trending down this weekstarte d procrit 10/16 and scheduled for bi weeklyunsu re when she last receivedwi ll follow up with patient son. [id number] TATI CURRIE [place] [address] [place] [address] [place] [address] 01/13/2024 10:07:39 01/25/2024 10:52:36 Open wound of left lower leg 6584026926 9896565 S81.802A patient son reports that she gets wound care at [facility] [place] and she suppose to have calcium alginate and zinc applied to and around left lower extremity wound. He wants this to continue until wound can dorian.wound MD alarcon and quinton ordered to cleanse wound with NS apply calcium alginate and zinc ben wound. Chronic di astolic heart failure 879361388 I50.32 continue lasix 40 mg dailyconti nue potassium 20 meq daily Paroxysmal atrial fibrillation 668882269 I48.0 Cardizem 120 mg dailyconti nue eliquis 2.5 mg BID Type 2 tiara betes mellitus 53643015 E11.9 With some hypoglycem ia.continu e Humulin 70/30 20 units BID and SSI continued. continue fingerstic ks QID Essential hypertension 75087826 I10 BP goal for this elderly woman is permissive HTN, with SBP<150 and DBP<90Cont inue lasix 40 mg qd, hydralazin e 25 mg BID lasix 40 mg dailyMonit or BP and labs. Anemia 945470107 D64.89 HX of normochrom ic normocytic anemiaH/H trending down this week - tends to fluctuates tarted procrit 78761 10/16 and scheduled for bi weeklyRece ived doses on 10/27, 11/10, 11/24, 12/19 and 01/11/24 Bimalleola r fracture of ankle 431516049 S82.841A chronic with [facility] arthropath y with deformity ankle and midfoothx of infection with osteomyeli tis August 2023follow ed by [facility]- last seen on 01/07/24- recommend 2 tx option 1.conserva tive treatment wit off loading as much as possible, wear heel protector boot.2. Surgical reconstruc tion [id number] TATI CURRIE [address] [place] [address] 01/20/2024 09:44:29 01/25/2024 11:59:00 Open wound of left lower leg 4347695963 5387564 S81.802A continue calcium alginate and zinc left lower extremity woundwound MD alarcon and quinton ordered to cleanse wound with NS apply calcium alginate and zinc ben wound. Chronic di astolic heart failure 198625723 I50.32 stablecont inue lasix 40 mg dailyconti nue potassium 20 meq daily Paroxysmal atrial fibrillation 613722101 I48.0 HR 69Cardizem 120 mg dailyconti nue eliquis 2.5 mg BID Type 2 tiara betes mellitus 92310860 E11.9 With some hypoglycem ia.continu e Humulin 70/30 20 units BID and SSI continued. continue fingerstic ks QID Anemia 582805866 D64.89 HX of normochrom ic normocytic anemiaH/H trending down this week - tends to fluctuates tarted procrit 75586 10/16 and scheduled for bi weeklyRece ived doses on 10/27, 11/10, 11/24, 12/19 and 01/11/24 Bimalleola r fracture of ankle 516732604 S82.841A chronic with [facility] arthropath y with deformity ankle and midfoothx of infection with osteomyeli tis August 2023follow ed by [facility]- last seen on 01/07/24- recommend 2 tx option 1.conserva tive treatment wit off loading as much as possible, wear heel protector boot.2. Surgical reconstruc tion [id number] TATI CURRIE [address] [place] [address] [place] [address] 01/25/2024 10:02:09 01/31/2024 15:51:53 Open wound of left lower leg 7327387791 1821252 S81.802A continue calcium alginate and zinc left lower extremity woundwound MD alarcon and quinton ordered to cleanse wound with NS apply calcium alginate and zinc ben wound. Chronic di astolic heart failure 997754629 I50.32 continue lasix 40 mg dailyconti nue potassium 20 meq daily Paroxysmal atrial fibrillation 110174080 I48.0 Cardizem 120 mg dailyconti nue eliquis 2.5 mg BID Type 2 tiara betes mellitus 49975759 E11.9 no recent hypoglycem ic events.con tinue Humulin 70/30 20 units BID and SSI continued. continue fingerstic ks QID Anemia 532513059 D64.89 recent labs stable,HX of normochrom ic normocytic anemiaH/H trending down this week - tends to fluctuates tarted procrit 78770 10/16 and scheduled for bi weeklyRece ived doses on 10/27, 11/10, 11/24, 12/19 and 01/11/24 Bimalleola r fracture of ankle [id number] S82.841A dressing intact, pain is controlled chronic with charcot arthropath y with deformity ankle and midfoothx of infection with osteomyeli tis August 2023follow ed by [facility]- last seen on 01/07/24- recommend 2 tx option 1.conserva tive treatment wit off loading as much as possible, wear heel protector boot.2. Surgical reconstruc tion [id number] TATI CURRIE [address] [facility] [place] [address] 01/28/2024 15:29:14 02/01/2024 08:26:24 Open wound of left lower leg [id number] 5030265 S81.802A [facility] with NS apply calcium alginate and zinc ben wound.elev ate left foot/heel when sitting to keep DTI well perfused Chronic di astolic heart failure 819044793 I50.32 continue lasix 40 mg dailyconti nue potassium 20 meq daily Paroxysmal atrial fibrillation 525046316 I48.0 Cardizem 120 mg dailyconti nue eliquis 2.5 mg BID Type 2 tiara betes mellitus 08314268 E11.9 no recent hypoglycem ic events.con tinue Humulin 70/30 20 units BID and SSI continued. continue fingerstic ks QID Anemia 911967190 D64.89 recent labs stable,HX of normochrom ic normocytic anemiacont inue procrit 41867 10/16 and scheduled for bi weekly Bimalleola r fracture of ankle 213974771 S82.841A she gets wound care from [facility] was seen on 01/23 and will f/u in 2 weeksconti michael with current dressing change. 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 Surgical reconstruc tion [id number] TATI CURRIE [address] [place] [address] 02/01/2024 10:24:39 02/04/2024 08:49:56 Open wound of left lower leg [id number] 0038997 S81.802A continue to cleanse wound with NS apply calcium alginate and zinc ben wound.elev ate left foot/heel when sitting to keep DTI well perfused Chronic di astolic heart failure 064015404 I50.32 continue lasix 40 mg dailyconti nue potassium 20 meq daily Paroxysmal atrial fibrillation 154944704 I48.0 Cardizem 120 mg dailyconti nue eliquis 2.5 mg BID Type 2 tiara betes mellitus 75411208 E11.9 no recent hypoglycem ic events.con tinue Humulin 70/30 20 units BID and SSI continued. continue fingerstic ks QID Anemia 430410104 D64.89 recent labs stable,HX of normochrom ic normocytic anemiacont inue procrit 05093 10/16 and scheduled for bi weekly Bimalleola r fracture of ankle 342288294 S82.841A She gets wound care [facility] was seen on 01/23 and will f/u in 2 weeksconti nue with current dressing change. 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 Surgical reconstruc tion Chronic ki dney disease 270688936 N18.32 monitor labsavoid nephrotoxi c meds Essential hypertension 12604665 I10 blood pressure has been stable 120-130sBP goal for this elderly woman is permissive HTN, with SBP<150 and DBP<90Cont inue lasix 40 mg qd, hydralazin e 25 mg BID lasix 40 mg dailyMonit or BP and labs. Gout 90699396 M10.09 allopurino l 100 mg dailynot reported recent flare up. [id number] TATI CURRIE [address] [place] [address] 02/04/2024 09:44:41 02/07/2024 14:37:26 Open wound of left lower leg [id number] 8480440 S81.802A continue to cleanse wound with NS apply calcium alginate and zinc ben wound.elev ate left foot/heel when sitting to keep DTI well perfused Chronic di astolic heart failure 033123604 I50.32 euvolemicc ontinue lasix 40 mg dailyconti nue potassium 20 meq daily Paroxysmal atrial fibrillation 890173908 I48.0 Cardizem 120 mg dailyconti nue eliquis 2.5 mg BID Type 2 tiara betes mellitus 32799013 E11.9 BGLs mainly under 200's, a few noted in the 400s. patient and son are very particular about insulin dosing, so will not adjust.con tinue Humulin 70/30 20 units BID and SSI continued. continue fingerstic ks QID Anemia 593343156 D64.89 continue procrit 55319 10/16 and scheduled for bi weekly Bimalleola r fracture of ankle 121519583 S82.841A She gets wound care [facility] was seen on 01/23 and [...] protector boot.2. Surgical reconstruc tion Essential hypertension 36739490 I10 BP goal for this elderly woman is permissive HTN, with SBP<150 and DBP<90Cont inue lasix 40 mg qd, hydralazin e 25 mg BID lasix 40 mg dailyMonit or BP and labs. [id number] TATI CURRIE [address] [place] [address] 02/07/2024 11:53:48 02/09/2024 16:49:24 Open wound of left lower leg [id number] 5214620 S81.802A continue to cleanse wound with NS apply calcium alginate and zinc ben wound.elev ate left foot/heel when sitting to keep DTI well perfused Chronic di astolic heart failure 903665729 I50.32 continue lasix 40 mg dailyconti nue potassium 20 meq daily Paroxysmal atrial fibrillation 998935277 I48.0 Cardizem 120 mg dailyconti nue eliquis 2.5 mg BID Type 2 tiara betes mellitus 24769815 E11.9 continue Humulin 70/30 20 units BID and SSI continued. continue fingerstic ks QID Anemia 762966043 D64.89 continue procrit 12221 10/16 and scheduled for bi weekly Essential hypertension 35252913 I10 Continue lasix 40 mg qd, hydralazin e 25 mg BID lasix 40 mg dailyMonit or BP and labs. [id number] TATI CURRIE [address] [address] 02/10/2024 09:22:17 02/16/2024 10:42:27 Open wound of left lower leg [id number] 2624139 S81.802A continue to cleanse wound with NS apply calcium alginate and zinc ben wound. PCC updatedele vate left foot/heel when sitting to keep DTI well perfused Chronic di astolic heart failure 801358544 I50.32 continue lasix 40 mg dailyconti nue potassium 20 meq daily Paroxysmal atrial fibrillation 219091011 I48.0 Cardizem 120 mg dailyconti nue eliquis 2.5 mg BID Type 2 tiara betes mellitus 69072403 E11.9 continue Humulin 70/30 20 units BID and SSI continued. continue fingerstic ks QIDno reported hypo/hyper glycemic events. Essential hypertension 30067495 I10 Continue lasix 40 mg qd, hydralazin e 25 mg BID lasix 40 mg dailyMonit or BP and labs. [id number] Janee Davis MD [address] [address] 02/14/2024 21:04:27 03/14/2024 07:28:32 Chronic diastolic heart failure 236113519 I50.32 Appears euvolemic. Continue lasix 40 mg qd and KCl 20 meq qd to prevent hypokalemi a.Monitor resp. status, fluid status, wts and labs. Paroxysmal atrial fibrillation 217749821 I48.0 Rate in good control on meds as above.Cont inue eliquis 2.5 mg BID for AC.Monitor HR and bleeding risk. Type 2 tiara betes mellitus 40386453 E11.9 In adequate control.Co ntinue Humulin 70/30 20U BID and SSIContinu e fingerstic ks QID Essential hypertension 77623534 I10 In good control.Co ntinue lasix 40 mg qd, hydralazin e 25 mg BID, diltiazem 120 mg qd, and lasix 40 mg qdMonitor BP and labs. 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 Essential hypertension 45033638 I10 Continue lasix 40 mg qd, hydralazin e 25 mg BID lasix 40 mg dailyMonit or BP and labs. Chronic di astolic heart failure 094956279 I50.32 continue lasix 40 mg dailyconti nue potassium 20 meq daily Paroxysmal atrial fibrillation 315867698 I48.0 Cardizem 120 mg dailyconti nue eliquis 2.5 mg BID Type 2 tiara betes mellitus 21061872 E11.9 continue Humulin 70/30 20 units BID and SSI continued. continue fingerstic ks QIDno reported hypo/hyper glycemic events. Chronic ki dney disease 933484757 N18.32 Back to baseline.C ontinue to avoid nephrotoxi c meds as able.Monit or labs.Renal consult prn. Closed bim alleolar fracture of right ankle 1056768749 4264963 S82.841D Continue APAP 1000 mg q 4 hrs prn, NTE 3000 mg/dContin ue fall precaution s.Monitor for safety.F/U with ortho Gastroesop hageal reflux disease without esophagitis 172190398 K21.9 Continue omeprazole 20 mg qd Gout 93923542 M10.09 Continue allopurino l 100 mg qdMonitor for flare. Hyperlipidemia 09850498 E78.49 Continue fenofibrat e 160 mg qdMonitor as outpt. Hypothyroidism 23541591 E03.8 not on medsTSH WNL inpt.Monit or as outpt Hypomagnesemia 473174813 E83.42 Continue Mg+ 400 mg BID.Monito r levels Vitamin D deficiency 347 58879 E56.8 ergocalcif denisse 50,000 IU qdMonitor levels Anemia 775569868 D64.89 Multifacto rial.justo nue procrit 46073 bi weekly Health Concerns Section Related Observation LastModified by Organization Detai ls LastModified Time None Recorded Concern Status LastModified by Organization Details LastModified Time None Recorded Advance Directives Directive Y: Payers Insurance Date Sequence Insurance Name Policy Number Policy Braov Covered Member ID Bravo Member ID Guarantor Name 01/25/2024 1 [place] [employer] SERVICES Susan Laurent [id number] Susannicolas Rodríguezchiki 03/14/2024 2 [place] [id number] Susan Rodríguezchiki [id number] Susan Rodríguezchiki Notes Date Note Type [...] broke her right ankle, most recently at [facility] for a CHF exacerbation.She initially presented to the [facility] ED on 11/26 after an unknown injury. Found to have an Acute displaced bimalleolar fracture with ankle mortise disruption. Complicated by chronic pain from right foot Charcot arthropathy. She was splinted and instructed in strict NWB status and d/c to [facility]. Of note she had just been dxed with new onset Afib on 11/24 and started on diltiazem and apixaban.Returned to [facility] ED on 12/13, several days after d/c from [facility], because of difficulty ambulating at home and unable to help her due to his own issues. D/C on 12/15 to [facility].Was sent to the [facility] ED on 12/17 because of SOB and [...] concerns. TATI CURRIE [address], [address], [place], [address], [facility] 02/04/2024 11:01:05 02/07/2024 text/html This is an 88 yo woman seen today for acute rounding visit. 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 Patient has been in and out of rehabs and hosp since 11/26 when she broke her right ankle, most recently at [facility] for a CHF exacerbation.She initially presented to the [facility] ED on 11/26 after an unknown injury. Found to have an Acute displaced bimalleolar fracture with ankle mortise disruption. Complicated by chronic pain from right foot Charcot arthropathy. She was splinted and instructed in strict NWB status and d/c to [facility]. Of note she had just been dxed with new onset Afib on 11/24 and started on diltiazem and apixaban.Returned to [facility] ED on 12/13, several days after d/c from [facility], because of difficulty ambulating at home and unable to help her due to his own issues. D/C on 12/15 to [facility].Was sent to the [facility] ED on 12/17 because of SOB and AMS.Labs and vitals were WNL (except Na+147 and BNP 222) CXR showed pulmonary edema with small pleural effusions. Neg for RSV/influenza and covid.EKG showed NSR and she was continued on diltiazem and apixaban.She was txed with IV lasix and K+A left dhillon wound was followed by wound care. TATI CURRIE [address], [address], [place], [address], [facility] 02/07/2024 14:37:38 02/10/2024 text/html This is an [...] sepsis. TATI CURRIE [address], [address], [place], [address], [employer] [facility] 02/10/2024 12:44:47 02/14/2024 text/html I am seeing this 88 yo woman for an acute visit today to f/u on RLE fx, ulcers and NWB status.Son has had concerns about mother refusing wound care and this is being addressed by nursing staff.She was seen at the [facility] wound clinic on 02/06 and it was [...] MSSA sepsis. Janee Davis MD [address], [address], [place], [address], [facility] 03/11/2024 19:10:29 02/18/2024 text/html This is an 88 yo woman due for discharge today. Patient has been in and out of rehabs and hosp since 11/26 when she broke her right ankle, most recently at [facility] for a CHF exacerbation.She initially presented to the [facility] ED on 11/26 after an unknown injury. Found to have a right Acute displaced bimalleolar fracture with ankle mortise disruption. Complicated by chronic pain from right foot Charcot arthropathy. She was splinted and instructed in strict NWB status and d/c to [facility]. Of note she had just been dxed with new onset Afib on 11/24 and started on diltiazem and apixaban.Returned to [facility] ED on 12/13, several days after d/c from [facility], because of difficulty ambulating at home and unable to help her due to his own issues. D/C on 12/15 to [facility].Was sent to the [facility] ED on 12/17 because of SOB and AMS.Labs and vitals were WNL (except Na+147 and BNP 222) CXR showed pulmonary edema with small pleural effusions. Neg for RSV/influenza and covid.EKG showed NSR and she was continued on diltiazem and apixaban.She was txed with IV lasix and K+A left dhillon wound was followed by wound care.She was transferred to [facility] on [facility] was done on 12/23 [...] sepsis. TATI CURRIE [address], [address], [place], [address], [facility] 02/18/2024 14:26:35 OBGyn Episode No OBEpisode recorded.
--- OUTSIDE RECORDS SUMMARY | 2025-03-13 12:43 | XMS_ITS | Patient Health Record ---
Author Organization [facility] Address [address] [place] [address] Care Team Providers Care C Software Developer Name Role Phone PriceWilber [phone] Reason For Referral No Information Plan Of Treatment No Information
--- OUTSIDE RECORDS SUMMARY | 2025-03-13 12:43 | XMS_ITS | Clinical Summary ---
Author Organization [facility] Address [address] [place] [address] Phone Care Team Providers Care Sales Product Specialist Name Role Phone Unknown, Unknown Primary Care Provider Natividad marie Social History Tobacco Use Types Packs/Day Years Used Date Smoking Tobacco: Never Assessed Education Answer Date Recorded Are you interested in more education? Not on tomás e 12/18/2022 Are you concerned about learning? Not on file 12/18/2022 No 12/18/2022 No 12/18/2022 Digital Access Answer Date Recorded No 01/19/2023 No 01/19/2023 No 01/19/2023 Reliable internet access at home? Not on file 01/19/2023 Device with a working camera? Not on file Comments Unknown Sex and Gender Information Value Date Recorded Sex Assigned at Not on file Legal Sex Female 4:32 PM EDT Gender Identity Not on file Sexual Orientation Not on file Plan of Treatment Not on file Medical Devices Not on file Insurance BLUE [employer]OSS MEDEX SUPPLEMENT MEDICARE PART A & B [facility] FULL MEDEX SUPPLEMENT MEDICARE PART A & B [employer] NET FULL MEDEX SUPPLEMENT MEDICARE PART A & B HEALTH S[employer] NET FULL [employer] MEDEX SUPPLEMENT MEDICARE PART A & B [facility] FULL [employer] MEDEX SUPPLEMENT MEDICARE PART A & B [facility] FULL MEDEX SUPPLEMENT MEDICARE PART A & B [employer] NET FULL MEDEX SUPPLEMENT MEDICARE PART A & B [employer] NET FULL [employer] MEDEX SUPPLEMENT MEDICARE PART A & B [facility] FULL [employer] MEDEX SUPPLEMENT MEDICARE PART A & B [facility] FULL Care Teams Sales Product Specialist Relationship Specialty Start Date End Date Unknown, Unknown, PCP - General 12/21/18 Additional Source Comments The information contained in this document represents components of the legal health record. It is not the complete legal health record.[facility]
--- OUTSIDE RECORDS SUMMARY | 2025-03-13 12:43 | XMS_ITS | Clinical Summary ---
Author Organization [facility] Address [address] [place] [address] Phone Care Team Providers Care Outsole Skiver Name Role Phone Christopher Zamudio MD Primary Care Provider [phone] Allergies Active Allergy Reactions Criticality Noted Date [...] 3 12/27/2022 Active epoetin jayna (EPOGEN,PROCRIT ) 74558 UNIT/ML injectionIndica tions:Anemia due to Renal Failure Inject 40,000 Units under the skin every 14 (fourteen) days Active apixaban (Eliquis) 2.5 MG tablet Take 2.5 mg by mouth in the morning and 2.5 mg in the evening. Active hydrALAZINE 25 MG tablet TAKE 1 TABLET(25 MG) BY MOUTH IN THE MORNING AND IN THE EVENING 180 tablet 01/04/2025 Active Active Problems Problem Noted Date Diagnosed [...] Overview (09/16/2022): Seen at [facility]. History of malignant basal cell neoplasm of skin 01/27/2019 Overview (09/16/2022): lip Encounters Date Type Department Care Team Description 02/23/2025 Orders Only [facility] [address] [address] Neo Rollins MD Chronic kidney disease, stage 4 (severe) (FORMERLY [facility]); Anemia in chronic kidney disease 01/03/2025 Refill [facility] [address] [phone] Neo Rollins MD from Last 3 Months [...] Office Visit [facility] [address] [phone] Neo Rollins MD [address] [phone] Health Maintenance Due Date Last Done Comments Diabetes: Hemoglobin A1C 09/23/2020 04/18/2019 Diabetes: Ophthalmology Exam 09/23/2020 Diabetes: Pedal Pulse Checked 09/23/2020 Diabetes: Sensory Foot Exam 09/23/2020 Diabetes: Visual Foot Exam 09/23/2020 Pneumococcal Vaccine: 50+ Ye ars (2 of 2 - PCV) 07/15/2022 07/15/2021 Influenza Vaccine (#1) 2025 07/31/2023 Pneumococcal Vaccine: Peds ( 0 to 5 [...] EDT) Hemoglobin A1C 7.0 % [place] Comment: Hemoglobin A1C Reference Range Adults: 4.8 - 6.0 % Non diabetic: < 6.0 % Goal: < 7.0 % Additional Action Suggested: > 8.0 % Note: Hemoglobin A1c results are invalid for patients with abnormal amounts of HbF. Blood transfusions may impact the HbA1c concentration in the patient sample. Estimated Average Glucose 154 MG/DL [place] Comment: eAG = Estimated average glucose which is %A1C expressed as average glucose, using the formula of the Z3A-Sinwkcd Average Glucose study (ADAG), Diabetes Care, Vol.31,#8, Mar. 2007 04/18/2019 10:3 4 AM EDT us Christopher Zamudio MD LAB BLOOD ORDERABLES Final Resu lt [place] from Last 3 Months or Most Recently Relevant to Health [place] [id number] [facility] Medicare Medicaid [place] Medicare [facility] Medicaid [place] Care Teams Outsole Skiver Relationship Specialty Start Date End Date Christopher Zamudio MD [address] [place] [address] PCP - General 09/02/20
== END 2025-03-13 11:26 | disposition home or self-care (01) ==
LOC: HO.LAB 11:25
PROVIDERS: Visit Provider Internal Medicine Medical Oncology
DX: D64.9 Anemia, unspecified (principal)
CPT/HCPCS: 36415; 85025

== ENCOUNTER 2025-03-28 11:49 | Outpatient (REF) | payer MEDICARE, SELFPAY ==
[2025-03-28 12:13] LABS: MANUAL DIFF FLAG NO
--- OUTSIDE RECORDS SUMMARY | 2025-03-28 12:36 | XMS_ITS | Clinical Summary ---
Author Organization [facility] Address [address] [place] [address] [address] [place] [address] Care Team Providers Care Yard Labor Supervisor Name Role Phone Unavailable Primary Care Provider [...]
--- OUTSIDE RECORDS SUMMARY | 2025-03-28 12:37 | XMS_ITS | Clinical Summary ---
Author Organization [facility] Address [address] [place] [address] Phone Care Team Providers Care Structural Metal Worker Name Role Phone Unknown, Unknown Primary Care [...] MEDEX SUPPLEMENT MEDICARE PART A & B [facility] FULL MEDEX SUPPLEMENT MEDICARE PART A & B [employer] NET FULL MEDEX SUPPLEMENT MEDICARE PART A & B [employer] NET FULL [employer] MEDEX SUPPLEMENT MEDICARE PART A & B [facility] FULL [employer] MEDEX SUPPLEMENT [employer] Address: [address] [place] [address] MEDICARE PART A & B [facility] FULL MEDEX SUPPLEMENT [employer] Address: [address] [place] [address] MEDICARE PART A & B [employer] NET FULL MEDEX SUPPLEMENT MEDICARE PART A & B [employer] NET FULL [employer] MEDEX SUPPLEMENT MEDICARE PART A & B [facility] FULL [employer] [place] MEDEX SUPPLEMENT MEDICARE PART A & B [facility] FULL Care Teams Structural Metal Worker Relationship Specialty Start Date End Date Unknown, Unknown, PCP - General 12/21/18 Additional Source Comments The information contained in this document represents components of the legal health record. It is not the complete legal health record.[facility]
--- OUTSIDE RECORDS SUMMARY | 2025-03-28 12:37 | XMS_ITS | Clinical Summary ---
Author Organization [facility] Address [address] [place] [phone] Phone Care Team Providers Care Electrode Turner And Finisher Name Role Phone Christopher Zamudio MD Primary Care Provider [phone] Allergies Active Allergy Reactions Criticality Noted Date [...] 3 12/27/2022 Active epoetin jayna (EPOGEN,PROCRIT ) 65621 UNIT/ML injectionIndica tions:Anemia due to Renal Failure [...] Overview (09/16/2022): [facility]. History of malignant basal cell neoplasm of skin 01/27/2019 Overview (09/16/2022): lip Encounters Date Type Department Care Team Description 02/23/2025 Orders Only [facility] [address] [phone] Neo Rollins MD Chronic kidney disease, stage 4 (severe) ([facility]); Anemia in chronic kidney disease 01/03/2025 Refill [facility] [address] [phone] Neo Rollins MD from Last 3 Months [...] [facility] [address] [phone] Neo Rollins MD [address] [phone] Health Maintenance Due Date Last Done Comments [...] average glucose, using the formula of the Y3I-Cvgviva Average Glucose study (ADAG), Diabetes Care, Vol.31,#8, Mar. 2007 04/18/2019 10:3 4 AM EDT us Christopher Zamudio MD LAB BLOOD ORDERABLES Final Resu lt [place] from Last 3 Months or Most Recently Relevant to Health [place] [address] [facility] Medicare Medicaid [place] Medicare [facility] Medicaid [place] Care Teams Electrode Turner And Finisher Relationship Specialty Start Date End Date Christopher Zamudio MD [address] [place] [address] PCP - General 09/02/20
--- OUTSIDE RECORDS SUMMARY | 2025-03-28 12:37 | XMS_ITS | Patient Health Record ---
Author Organization [facility] Address [address] [place] [phone] Care Team Providers Care Cash Grain Farmer Name Role Phone PriceWilber [phone] Reason For Referral No Information Plan Of Treatment No Information
--- OUTSIDE RECORDS SUMMARY | 2025-03-28 12:37 | XMS_ITS | Clinical Summary ---
Author Organization [facility] Address [address] [place] [phone] Care Team Providers Care Bead Trimmer Name Role Phone Christopher Zamudio MD Primary Care Provider [phone] Surgical History Surgery Date Site/Laterality Comments CHOLECYSTECTOMY PROCEDURE: HISTORICAL CHOLECYSTECTOMY; COMMENT: 1981 LEG SURGERY 1985 PROCEDURE: HISTORICAL LEG SURGERY; COMMENT: Vein ablation APPENDECTOMY PROCEDURE: HISTORICAL APPENDECTOMY; COMMENT: 1981 OTHER SURGICAL HISTORY 08/18/2023 Right PROCEDURE: VT INCISION BONE CORTEX FOOT; COMMENT: right, 5th metatarsal OTHER SURGICAL HISTORY 08/18/2023 Right PROCEDURE: VT BIOPSY BONE OPEN SUPERFICIAL; COMMENT: right, 5th proximal phalanx OTHER SURGICAL HISTORY 08/18/2023 Right PROCEDURE: VT SECONDARY CLOSURE SURG WOUND/DEHSN XTNSV/COMP Medical History [...] (HCC); COMMENT: Se[facility] at [facility]. History of cataract 10/17/2020 DX:History o f cataract Type 2 diabetes mellitus wit h cataract (CMS/HCC V24, CMS/HCC V28) 10/17/2020 DX:Type 2 diabetes mellitus with cataract ([facility]) Arrhythmia 10/17/2020 DX:Arrhythmia Family History Medical [...] 1954 Pneumococcal Vaccine: 50+ Years (1 of 1 - PCV) 1985 Zoster Vaccines (1 of 2) 1985 RSV Immunization Adult Patients (1 - 1-dose 75+ series) 2010 Cholesterol Screening (Lipid Panel) 07/26/2022 Falls Risk Assessment 07/26/2022 Osteoporosis Screening (Bone Density Screening) 07/26/2022 Social Influencers of Health Screening 07/26/2022 Diabetes: Blood Sugar Contro l Test (HGBA1C) 08/07/2022 Hypertension/CHF/CAD Annual BMP Blood Test 08/07/2022 COVID-19 Vaccine (3 - 2023-2 5 season) 2024 10/22/2020, 09/23/2020 Depression Screening 08/23/2024 Influenza Vaccine (#1) 2025 [...] Documents on File Type Date Recorded Patient Firestop/Containment Worker Expl anation Health Care Decision (hx) 08/20/2023 AD العراقي DIRECTIVE Health Care Decision (hx) 08/20/2023 AD العراقي DIRECTIVE Care Teams Bead Trimmer Relationship Specialty Start Date End Date Christopher Zamudio MD [address] [place] [address] [place] [id number] PCP - General 09/10/16
[2025-03-28 12:56] LABS: Hematocrit 29.2 % (37.0-47.0); Hemoglobin 9.8 g/dl (12.0-16.0); Imm Gran Abs Auto 0.03 X10*3/uL (0.00-0.03); Imm Gran Pct Auto 0.4 % (0.0-0.4); Lymphocytes Absolute Auto 1.2 X10*3/uL (1.2-4.9); Mean Corpuscular HGB Conc 33.6 g/dl (31.0-35.0); Mean Corpuscular Hemoglobin 29.2 pg (27.0-33.0); Mean Corpuscular Volume 86.9 fL (80.0-98.0); NRBC Abs Auto 0.000 X10*3/uL (0.0-0.012); NRBC Pct Auto 0.0 /100WBC (0.0-0.2); Platelet Count 210 X10*3/uL (160-400); Red Blood Count 3.36 X10*6/uL (4.20-5.50); White Blood Count 7.4 X10*3/uL (4.8-10.8)
[2025-03-28 13:08] LABS: Appearance Urine Clear; Glucose Urine UA Negative (Negative); PH 6.5 (5.0-9.0); Specific Gravity - Urine 1.010 (1.005-1.025); UMIC TRIGGER UA YES
[2025-03-28 14:03] LABS: Parathyroid Hormone Intact 106.6 pg/mL (8.7-77.1)
[2025-03-28 14:13] LABS: Albumin Level 3.5 g/dL (3.5-5.0); Anion Gap 15 (12-20); Blood Urea Nitrogen 53 mg/dL (9-16); Calcium 9.6 mg/dL (8.4-10.2); Carbon Dioxide 24 mmol/L (22-29); Chloride 108 mmol/L (96-108); Estimated Glomerular Filt Rate 18; Magnesium 1.6 mg/dL (1.6-2.6); Potassium 4.1 mmol/L (3.3-5.1); Sodium 143 mmol/L (135-145)
[2025-03-28 14:15] LABS: Protein/Creatinine Ratio, Ur 6.41 (<0.2); Total Protein Urine Random 175 mg/dL (<12)
[2025-03-28 14:31] LABS: Microalbum/Creatinine Ratio Ur 4100.4 ug/mg cr (<30)
== END 2025-03-28 11:50 | disposition home or self-care (01) ==
LOC: HO.LAB 11:49
PROVIDERS: Absent Provider Internal Medicine Nephrology; Visit Provider Internal Medicine Medical Oncology
DX: N18.4 Chronic kidney disease, stage 4 (severe) (principal); D63.1 Anemia in chronic kidney disease
CPT/HCPCS: 36415; 80051; 81001; 82040; 82043; 82306; 82310; 82565; 82570; 83735; 83970; 84100; 84156; 84520; 85025; 87086

== ENCOUNTER 2025-04-11 11:23 | Outpatient (REF) | payer MEDICARE, SELFPAY ==
[2025-04-11 12:21] LABS: Hematocrit 32.2 % (37.0-47.0); Hemoglobin 10.4 g/dl (12.0-16.0); Imm Gran Abs Auto 0.03 X10*3/uL (0.00-0.03); Imm Gran Pct Auto 0.4 % (0.0-0.4); Lymphocytes Absolute Auto 1.3 X10*3/uL (1.2-4.9); MANUAL DIFF FLAG SCAN; Mean Corpuscular HGB Conc 32.3 g/dl (31.0-35.0); Mean Corpuscular Hemoglobin 28.8 pg (27.0-33.0); Mean Corpuscular Volume 89.2 fL (80.0-98.0); NRBC Abs Auto 0.000 X10*3/uL (0.0-0.012); NRBC Pct Auto 0.0 /100WBC (0.0-0.2); PLT CLUMP 1; Red Blood Count 3.61 X10*6/uL (4.20-5.50); SCAN SMEAR FLAG 1
[2025-04-11 12:32] LABS: Hemoglobin A1C 123.3158 umol/L; Total Hemoglobin (HGBA1C) 2791.6146 umol/L
[2025-04-11 12:38] LABS: Platelet Count 192 X10*3/uL (160-400); White Blood Count 8.5 X10*3/uL (4.8-10.8)
--- OUTSIDE RECORDS SUMMARY | 2025-04-11 12:45 | XMS_ITS | Clinical Summary ---
Author Organization [facility] Address [address] [place] [phone] Phone Care Team Providers Care Adoption Coordinator Name Role Phone Unknown, Unknown Primary Care [...] MEDEX SUPPLEMENT MEDICARE PART A & B [facility]LY [facility] FULL MEDEX SUPPLEMENT MEDICARE PART A & B HEALTH SAFETY NET FULL MEDEX SUPPLEMENT MEDICARE PART A & B HEALTH SAFETY NET FULL [employer] MEDEX SUPPLEMENT MEDICARE PART A & B [facility] FULL [employer] MEDEX SUPPLEMENT MEDICARE PART A & B [facility] FULL MEDEX SUPPLEMENT MEDICARE PART A & B [employer] NET FULL MEDEX SUPPLEMENT MEDICARE PART A & B [employer] NET FULL [employer] MEDEX SUPPLEMENT MEDICARE PART A & B [facility] FULL [facility] MEDEX SUPPLEMENT MEDICARE PART A & B [facility]LY [facility] FULL Care Teams Adoption Coordinator Relationship Specialty Start Date End Date Unknown, Unknown, PCP - General 12/21/18 Additional Source Comments The information contained in this document represents components of the legal health record. It is not the complete legal health record.[facility]
--- OUTSIDE RECORDS SUMMARY | 2025-04-11 12:45 | XMS_ITS | Clinical Summary ---
Author Organization [facility] Address [address] [place] [phone] Phone Care Team Providers Care Arts Manager Name Role Phone Christopher Zamudio MD Primary Care Provider [phone] Allergies Active Allergy Reactions Criticality Noted Date Comments Codeine Other (see comments) 02/28/2021 Metoprolol 09/26/2024 pt says she hallucinates Medications allopurinol (ZYLOPRIM) 100 MG tablet Take 100 mg by mouth daily 09/28/19 21 Active fenofibrate (TRIGLIDE) 160 MG tablet Take 160 mg by mouth daily 08/17/20 20 Active furosemide (LASIX) 20 MG tablet Take 20 mg by mouth daily 09/23/19 21 Active Accu-Chek Radha Plus test strip TEST THREE TIMES DAILY DIRECTED 07/30/20 20 Active omeprazole (PriLOSEC) [address] capsule Take 1 capsule by mouth 1 (one) time each day Active triamcinolone (KENALOG) 0.5 % ointment by Other route 2 (two) times a day Active Microlet Lancets misc USE TO TEST BLOOD SUGAR THREE TIMES DAILY 08/02/20 20 Active insulin NPH-insulin regular (HumuLIN 70/30 KWIKPEN) (70-30) 100 UNIT/ML injection as directed Active metoprolol tartrate (LOPRESSOR) 50 MG tablet Take 0.5 tablets (25 mg total) by mouth 1 (one) time each day 90 tablet 3 12/28/19 23 Active Additional Information Patient not taking.Reported on 04/03/2025 epoetin jayna (EPOGEN,PROCRI T) 90400 UNIT/ML injectionIndic ations:Anemia due to Renal Failure Inject 40,000 Units under the skin every 14 (fourteen) days Active apixaban (Eliquis) 2.5 MG tablet Take 2.5 mg by mouth in the morning and 2.5 mg in the evening. Active hydrALAZINE 25 MG tablet TAKE 1 TABLET(25 MG) BY MOUTH IN THE MORNING AND IN THE EVENING 180 tablet 04/02/20 Active Additional Information Patient taking differently: 2 times daily, Morning, Evening, Reported on 04/03/2025 dilTIAZem CD (CARDIZEM CD) 120 MG 24 hr capsule TAKE 1 CAPSULE BY MOUTH DAILY. STOP METOPROLOL -. CONTINUE DILTIAZEM CD 120 MG DAILY 01/09/20 Active hydrALAZINE 25 MG tablet TAKE 1 TABLET(25 MG) BY MOUTH IN THE MORNING AND IN THE EVENING 180 tablet 01/05/20 025 Discontinued Active Problems Problem Noted Date Diagnosed Date [...] Overview (09/16/2022): [facility]. History of malignant basal cell neoplasm of skin 01/27/2019 Overview (09/16/2022): lip Encounters Date Type Department Care Team Description 04/03/2025 1:30 PM EDT [facility] [address] [phone] Neo Rollins MD Chronic kidney disease, stage 4 (severe) (HCC) (Primary Dx); Type 2 diabetes mellitus with diabetic chronic kidney disease (HCC); Renal disorder due to type 2 diabetes mellitus <Diabetic nephropathy> (HCC); Anemia in chronic kidney disease 04/02/2025 Refill [facility] [address] [phone] Neo Rollins MD 03/28/2025 Orders Only [facility] [address] [phone] Neo Rollins MD 02/23/2025 Orders Only [facility] [address] [phone] Neo Rollins MD Chronic kidney disease, stage 4 (severe) (HCC); Anemia in chronic kidney disease from [...] Sign Reading Time Taken Comments Blood Pressure 126/64 04/03/2025 1:29 PM EDT Pulse 76 04/03/2025 1:29 PM EDT Temperature - - Respiratory Rate - - Oxygen Saturation 98% 04/03/2025 1:29 PM EDT Inhaled Oxygen Concentration - - Weight 101 kg (223 lb 9.6 oz) 11/09/2023 2:32 PM EDT Height 165.1 cm (5' 5 ) 08/30/2020 12:00 PM EST Body Mass Index 37.21 08/30/2020 12:00 PM EST Plan of Treatment Upcoming Encounters Date Type Department Care Team (Late st Contact Info) Description 09/26/2025 2:45 PM EST Office Visit [facility] [address] [phone] Neo Rollins MD [address] [phone] Health Maintenance Due Date Last [...] Procedure Name Priority Date/Time Associated Diagnosis Comments ALBUMIN, URINE, RANDOM Routine 03/28/2025 12:51 PM EDT PROTEIN / CREATININE RATIO, URINE Routine 03/28/2025 12:51 PM EDT Chronic kidney disease, stage 4 (severe) (HCC) Anemia in chronic kidney disease URINALYSIS WITH MICROSCOPIC Routine 03/28/2025 12:51 PM EDT Chronic kidney disease, stage 4 (severe) (HCC) Anemia in chronic kidney disease CREATININE, BLOOD Routine 03/28/2025 12: 10 PM EDT BUN Routine 03/28/2025 12:10 PM EDT ELECTROLYTE PANEL Routine 03/28/2025 12: 10 PM EDT PTH, INTACT (HC) Routine 03/28/2025 12:1 0 PM EDT CBC AND DIFFERENTIAL Routine 03/28/2025 12:10 PM EDT CALCIUM Routine 03/28/2025 12:10 PM EDT Chronic kidney disease, stage 4 (severe) (HCC) Anemia in chronic kidney disease ALBUMIN Routine 03/28/2025 12:10 PM EDT Chronic kidney disease, stage 4 (severe) (HCC) Anemia in chronic kidney disease MAGNESIUM Routine 03/28/2025 12:10 PM EDT Chronic kidney disease, stage 4 (severe) (HCC) Anemia in chronic kidney disease PHOSPHATE ( PHOSPHORUS) Routine 03/28/2025 12:10 PM EDT Chronic kidney disease, stage 4 (severe) (HCC) Anemia in chronic kidney disease VITAMIN D 25 HYDROXY Routine 03/28/2025 12:10 PM EDT Chronic kidney disease, stage 4 (severe) (HCC) Anemia in chronic kidney disease HEMOGLOBIN A1C Routine 04/18/2019 10:34 AM EDT from Last 3 Months or Most Recently Relevant to Health Maintenance Results * (ABNORMAL) Protein, Total, Random Urine w/Creatinine (Protein/Creat Ratio) (03/28/2025 12:51 PM EDT) Protein Urine Random 175(H) <12 mg/dL See order comments Protein/Creati nine Ratio, Urine 6.41(H) <0.2 See order comments Comment: The spot urine protein:creatinine ratio may increase to 0.3 during normal . Urine specimen (specimen) Urine specimen obtained by clean catch procedure / Unknown 03/28/2025 12:51 PM EDT 03/28/2025 12:51 PM EDT Neo Rollins MD LAB URINE ORDERABLES Final Re sult Performing Organization Address [facility] de Phone Number [place] See order comments [place] [address] * (ABNORMAL) Albumin, urine, random (03/28/2025 12:51 PM EDT) Creatinine, Urine 27.29 mg/dL Se e order comments Urine Microalbumin 1,119.0 mg/L See order comments Microalbumin/Crea tinine Ratio 4,100.4(H ) <30 ug/mg cr See order comments Comment: Albumin/Creatinine Ratio Reference Ranges: Normal: < 30 ug/mg creatinine Microalbuminuria: 30 - 300 ug/mg creatinine Clinical Albuminuria: > 300 ug/mg creatinine 03/28/2025 12:5 1 PM EDT 03/28/2025 12:51 PM EDT Neo Rollins MD LAB URINE ORDERABLES Final Re sult Performing Organization Address [facility] de Phone Number [place] See order comments [place] [address] * (ABNORMAL) Urinalysis with microscopic (03/28/2025 12:51 PM EDT) Color Urine Yellow See orde r comments Appearance Urine Clear See order comments pH Urine 6.5 5.0 - 9.0 See order comments Glucose Urine Negative Negative mg/dL See order comments Blood, Urine Negative Negative See ord er comments Specific Turner Urine 1.010 1.005 - 1.025 See order comments Protein Urine 300 (3+)(A) Neg-Trace mg/dL See order comments Ketones, Urine Negative Negative mg/dL See order comments Nitrite, Urine Negative Negative See o rder comments Leukocyte Esterase Urine Negative Negative See order comments RBC, Urine 0-2 0 - 2 /HPF See orde r comments WBC 0-5 0 - 5 /HPF See order comments Squamous Epithelial, Urine 0-2 0 - 2 /HPF See order comments Bacteria, Urine None Seen None Seen See order comments Hyaline Casts, Urine 0-2 0 - 2 /LPF See order comments Urine specimen (specimen) Urine specimen obtained by clean catch procedure / Unknown 03/28/2025 12:51 PM EDT 03/28/2025 12:51 PM EDT us Neo Rollins MD LAB URINE ORDERABLES Final Re sult [place] See order comments [place] [address] * (ABNORMAL) Creatinine (03/28/2025 12:10 PM EDT) Creatinine Serum 2.46(H) 0.5 - 1.4 mg/dL See order comments eGFR (Calc) 18 See orde r comments Comment: Chronic Kidney Disease: Estimated GFR < 60 mL/min/1.73m2 Severe Kidney Disease: Estimated GFR < 15 mL/min/1.73m2 03/28/2025 12:1 0 PM EDT 03/28/2025 12:10 PM EDT us Neo Rollins MD LAB BLOOD ORDERABLES Final Re sult [place] See order comments [place] [address] * (ABNORMAL) PTH, Intact (03/28/2025 12:10 PM EDT) Parathyroid Hormone, Intact 106.6(H) 8.7 - 77.1 pg/mL See order comments 03/28/2025 12:1 0 PM EDT 03/28/2025 12:10 PM EDT us Neo Rollins MD LAB [id number] SOLICITED RESULTS Final Result Performing Organization Address [facility] de Phone Number [place] See order comments [place] [address] * (ABNORMAL) Vitamin D 25 Hydroxy (03/28/2025 12:10 PM EDT) Vitamin D, 25-Hydroxy 24.4(L) >30 ng/mL See order comments Comment: Health Based Reference Values* < 20 ng/mL Deficient 20-30 ng/mL Insufficient > 30 ng/mL Sufficient *Mayda YO. N Engl J Med. 2007;357:266-280 There is no well-established upper level of normal vitamin D levels. Some laboratories use 50 ng/mL as an upper limit of normal. However, toxicity is patient-dependent and may occur at any level. Careful correlation with the patient's presentation is necessary and, if there is concern for vitamin D toxicity, treatment should be considered irrespective of the serum level. Care must be taken in interpreting Vitamin D results from different laboratories and methodologies. Published data demonstrated that results from patients undergoing hemodialysis may show a negative bias when tested with various automated 25-OH vitamin D assays when compared to LC-MS/MS. When testing samples from patients whose predominant form of Vitamin D is Vitamin D2, such as patients receiving Vitamin D2 supplementation, results that are subtherapeutic should be confirmed with another method such as LC-MS/MS. Blood specimen (specimen) Venous blood / Unknown 03/28/2025 12:10 PM EDT 03/28/2025 12:10 PM EDT us Neo Rollins MD LAB BLOOD ORDERABLES Final Re sult Performing Organization Address [facility] Co de Phone Number [place] See order comments [place] [address] * (ABNORMAL) CBC and Differential (03/28/2025 12:10 PM EDT) WBC 7.4 4.8 - 10.8 X10*3/uL See order comments RBC 3.36(L) 4.20 - 5.50 X10*6/uL See order comments Hgb 9.8(L) 12.0 - 16.0 g/dl See order comments Hematocrit 29.2(L) 37.0 - 47.0 % See order comments MCV 86.9 80.0 - 98.0 fL See order comments MCH 29.2 27.0 - 33.0 pg See order comments MCHC 33.6 31.0 - 35.0 g/dl See order comments RDW 16.6(H) 11.0 - 16.0 % See order comments Platelets 210 160 - 400 X10*3/uL See order comments MPV 13.5(H) 9.4 - 12.3 fL See order comments Neutrophils % Auto 75.1(H) 45 - 73 % See order comments Immature Granulocytes 0.4 0.0 - 0.4 % See order comments Lymphocytes Relative 16.7(L) 20 - 40 % See order comments Monocytes 5.2 2 - 11 % See order comments Eosinophils Relative 2.2 0 - 4 % See order comments Basophils Relative 0.4 0 - 2 % See order comments nRBC Count 0.0 0.0 - 0.2 /100WBC See order comments Neutrophils Absolute 5.5 2.0 - 8.3 x10*3/uL See order comments Immature Grans (Absolute) 0.03 0.00 - 0.03 X10*3/uL See order comments Lymphocytes Absolute 1.2 1.2 - 4.9 X10*3/uL See order comments Monocytes Absolute 0.4 0.1 - 1.2 X10*3/uL See order comments Eosinophils Absolute 0.2 0.0 - 0.4 X10*3/uL See order comments Basophils Absolute 0.0 0.0 - 0.2 X10*3/uL See order comments NRBC Absolute 0.000 0.0 - 0.012 X10*3/uL See order comments 03/28/2025 12:1 0 PM EDT 03/28/2025 12:10 PM EDT us Neo Rollins MD LAB BLOOD ORDERABLES Final Re sult [place] See order comments [place] [address] * (ABNORMAL) BUN (03/28/2025 12:10 PM EDT) BUN 53(H) 9 - 16 mg/dL See order comments 03/28/2025 12:1 0 PM EDT 03/28/2025 12:10 PM EDT us Neo Rollins MD LAB BLOOD ORDERABLES Final Re sult Performing Organization Address [facility] de Phone Number [place] See order comments [place] [address] * Phosphorus (03/28/2025 12:10 PM EDT) Phosphorus, Serum 2.7 2.7 - 4.5 mg/dL See order comments Blood specimen (specimen) Venous blood / Unknown 03/28/2025 12:10 PM EDT 03/28/2025 12:10 PM EDT us Neo Rollins MD LAB BLOOD ORDERABLES Final Re sult Performing Organization Address [facility] Phone Number [place] See order comments [place] [address] * Magnesium (03/28/2025 12:10 PM EDT) Magnesium 1.6 1.6 - 2.6 mg/dL See order comments Blood specimen (specimen) Venous blood / Unknown 03/28/2025 12:10 PM EDT 03/28/2025 12:10 PM EDT us Neo Rollins MD LAB BLOOD ORDERABLES Final Re sult Performing Organization Address [facility] Phone Number [place] See order comments [place] [address] * Calcium (03/28/2025 12:10 PM EDT) Calcium 9.6 8.4 - 10.2 mg/dL See order comments Blood specimen (specimen) Venous blood / Unknown 03/28/2025 12:10 PM EDT 03/28/2025 12:10 PM EDT us Neo Rollins MD LAB BLOOD ORDERABLES Final Re sult Performing Organization Address [facility]/State/ZIP Co de Phone Number [place] See order comments [place] [address] * Albumin (03/28/2025 12:10 PM EDT) Pathologist [facility] Albumin 3.5 3.5 - 5.0 g/dL See order comments Blood specimen (specimen) Venous blood / Unknown 03/28/2025 12:10 PM EDT 03/28/2025 12:10 PM EDT Neo Rollins MD LAB BLOOD ORDERABLES Final Re sult Performing Organization Address [facility] de Phone Number [place] See order comments [place] [address] * Electrolyte panel (03/28/2025 12:10 PM EDT) Pathologist [facility] Sodium 143 135 - 145 mmol/L See order comments Potassium 4.1 3.3 - 5.1 mmol/L See order comments Chloride 108 96 - 108 mmol/L See order comments Bicarbonate (CO2) 24 22 - 29 mmol/L See order comments Anion Gap 15 12 - 20 See order comments 03/28/2025 12:1 0 PM EDT 03/28/2025 12:10 PM EDT Neo Rollins MD LAB BLOOD ORDERABLES Final Re sult Performing Organization Address [facility] de Phone Number [place] See order comments [place] [address] * Hemoglobin A1c (04/18/2019 10:34 AM EDT) Pathologist [facility] Hemoglobin A1C 7.0 % [place] Comment: Hemoglobin A1C Reference Range Adults: 4.8 - 6.0 % Non diabetic: < 6.0 % Goal: < 7.0 % Additional Action Suggested: > 8.0 % Note: Hemoglobin A1c results are invalid for patients with abnormal amounts of HbF. Blood transfusions may impact the HbA1c concentration in the patient sample. Estimated Average Glucose 154 MG/DL [facility] Comment: eAG = Estimated average glucose which is %A1C expressed as average glucose, using the formula of the A2G-Xaqqlgr Average Glucose study (ADAG), Diabetes Care, Vol.31,#8, 2007 04/18/2019 10:3 4 AM EDT Christopher Zamudio MD LAB BLOOD ORDERABLES Final Resu lt [place] from Last 3 Months or Most Recently Relevant to Health Maintenance Insurance [facility] Medicare Medicaid [place] Medicare [facility] Medicaid [place] Care Teams Arts Manager Relationship Specialty Start Date End Date Christopher Zamudio MD [address] [place], [place] PCP - General 09/02/20
--- OUTSIDE RECORDS SUMMARY | 2025-04-11 12:45 | XMS_ITS | Clinical Summary ---
Author Organization [employer] Address [address] [place] [address] [address] [place] [address] Care Team Providers Care Extract Puller Name Role Phone Unavailable Primary Care Provider [...]
--- OUTSIDE RECORDS SUMMARY | 2025-04-11 12:45 | XMS_ITS | Patient Health Record ---
Author Organization [facility] Address [address] [place] [phone] Care Team Providers Care Sedimentationist Name Role Phone PriceWilber [phone] Reason For Referral No Information Plan Of Treatment No Information
--- OUTSIDE RECORDS SUMMARY | 2025-04-11 12:46 | XMS_ITS | Clinical Summary ---
Author Organization [facility] Address [address] [place] [id number] Care Team Providers Care Family Coach Name Role Phone Christopher Zamudio MD Primary Care Provider [phone] Surgical History Surgery Date Site/Laterality Comments CHOLECYSTECTOMY PROCEDURE: HISTORICAL CHOLECYSTECTOMY; COMMENT: 1981 LEG SURGERY 1985 PROCEDURE: HISTORICAL LEG SURGERY; COMMENT: Vein ablation APPENDECTOMY PROCEDURE: HISTORICAL APPENDECTOMY; COMMENT: 1981 OTHER SURGICAL HISTORY 08/18/2023 Right PROCEDURE: MO INCISION BONE CORTEX FOOT; COMMENT: right, 5th metatarsal OTHER SURGICAL HISTORY 08/18/2023 Right PROCEDURE: MO BIOPSY BONE OPEN SUPERFICIAL; COMMENT: right, 5th proximal phalanx OTHER SURGICAL HISTORY 08/18/2023 Right PROCEDURE: MO SECONDARY CLOSURE SURG WOUND/DEHSN XTNSV/COMP Medical History [...] (HCC); COMMENT: Seen at [facility]. History of cataract 10/17/2020 DX:History o f cataract Type 2 diabetes mellitus wit h cataract (CMS/HCC V24, CMS/HCC V28) 10/17/2020 DX:Type 2 diabetes mellitus with cataract ([facility]) Arrhythmia 10/17/2020 DX:Arrhythmia Family History Medical [...] 1945 Diabetes: Annual Retina Eye Exam 1945 Zoster Vaccines (1 of 2) 1985 RSV Immunization Adult Patients (1 - 1-dose 75+ series) 2010 DTaP,Tdap,and Td Vaccines (4 - Td or Tdap) 02/02/2022 02/03/2012, 01/21/2001, 01/21/2001 Pneumococcal Vaccine: 50+ Years (2 of 2 - PCV) 07/15/2022 07/15/2021 Cholesterol Screening (Lipid Panel) 07/26/2022 Falls Risk Assessment 07/26/2022 Osteoporosis Screening (Bone Density Screening) 07/26/2022 Social Influencers of Health Screening 07/26/2022 Diabetes: Blood Sugar Contro l Test (HGBA1C) 08/07/2022 04/18/2019 Hypertension/CHF/CAD Annual BMP Blood Test 08/07/2022 COVID-19 Vaccine (3 - 2023-2 5 season) 2024 10/22/2020, 09/23/2020 Depression Screening 08/23/2024 Influenza Vaccine (#1) 2025 07/31/2023 HIB Vaccines Aged Out No longer eligi [...] Documents on File Type Date Recorded 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
[2025-04-11 12:59] LABS: Alanine Aminotransferase 6 U/L (0-31); Albumin Level 3.6 g/dL (3.5-5.0); Alkaline Phosphatase 67 U/L (39-117); Anion Gap 16 (12-20); Aspartate Amino Transferase 28 U/L (5-31); Blood Urea Nitrogen 56 mg/dL (9-16); Calcium 9.4 mg/dL (8.4-10.2); Carbon Dioxide 20 mmol/L (22-29); Chloride 111 mmol/L (96-108); Cholesterol 121 mg/dL (<200); Estimated Glomerular Filt Rate 21; HDL Cholesterol 40 mg/dL (>40); Potassium 4.2 mmol/L (3.3-5.1); Sodium 143 mmol/L (135-145); Total Protein 6.7 g/dL (6.5-8.0); Triglycerides 92 mg/dL (<150)
[2025-04-11 13:20] LABS: Uric Acid 5.1 mg/dL (2.4-5.7)
== END 2025-04-11 11:24 | disposition home or self-care (01) ==
LOC: HO.LAB 11:23
PROVIDERS: Absent Provider Internal Medicine Medical Oncology
DX: I13.0 Hypertensive heart and chronic kidney disease with heart failure and stage 1 through stage 4 chronic kidney disease, or unspecified chronic kidney disease (principal); E11.22 Type 2 diabetes mellitus with diabetic chronic kidney disease; N18.4 Chronic kidney disease, stage 4 (severe); I42.9 Cardiomyopathy, unspecified; I50.9 Heart failure, unspecified; M19.071 Primary osteoarthritis, right ankle and foot; I48.91 Unspecified atrial fibrillation; M10.9 Gout, unspecified
CPT/HCPCS: 36415; 80053; 80061; 82306; 83036; 84443; 84550; 85025

== ENCOUNTER 2025-04-12 15:07 | Outpatient (REF) | payer MEDICARE, SELFPAY ==
--- OUTSIDE RECORDS SUMMARY | 2025-04-12 15:10 | XMS_ITS | Patient Health Record ---
Author Organization [facility] Address [address] [place] [phone] Care Team Providers Care Manager Of Finance Name Role Phone PriceWilber [phone] Reason For Referral No Information Plan Of Treatment No Information
--- OUTSIDE RECORDS SUMMARY | 2025-04-12 15:10 | XMS_ITS | Clinical Summary ---
Author Organization [employer] Address [address] [place] [address] [address] [place] [address] Care Team Providers Care Channel Opener Outsoles Name Role Phone Unavailable Primary Care Provider [...]
--- OUTSIDE RECORDS SUMMARY | 2025-04-12 15:10 | XMS_ITS | Clinical Summary ---
Author Organization [facility] Address [address] [place] [phone] Phone Care Team Providers Care Cad Technician Name Role Phone Unknown, Unknown Primary Care [...] MEDEX SUPPLEMENT MEDICARE PART A & B [facility] FULL MEDEX SUPPLEMENT MEDICARE PART A & B [employer] FULL MEDEX SUPPLEMENT MEDICARE PART A & B [employer] FULL [employer] MEDEX SUPPLEMENT MEDICARE PART A & B [facility] FULL [employer] MEDEX SUPPLEMENT MEDICARE PART A & B [facility] FULL MEDEX SUPPLEMENT MEDICARE PART A & B [employer] NET FULL MEDEX SUPPLEMENT MEDICARE PART A & B [employer] NET FULL [employer] MEDEX SUPPLEMENT MEDICARE PART A & B [facility] FULL [employer] [place] MEDEX SUPPLEMENT MEDICARE PART A & B [facility] FULL Care Teams Cad Technician Relationship Specialty Start Date End Date Unknown, Unknown, PCP - General 12/21/18 Additional Source Comments The information contained in this document represents components of the legal health record. It is not the complete legal health record.[facility]
--- OUTSIDE RECORDS SUMMARY | 2025-04-12 15:10 | XMS_ITS | Clinical Summary ---
Author Organization [facility] Address [address] [place] [phone] Care Team Providers Care Griddle Cook Name Role Phone Christopher Zamudio MD Primary Care Provider [phone] Surgical History Surgery Date Site/Laterality Comments CHOLECYSTECTOMY PROCEDURE: HISTORICAL CHOLECYSTECTOMY; COMMENT: 1981 LEG SURGERY 1985 PROCEDURE: HISTORICAL LEG SURGERY; COMMENT: Vein ablation APPENDECTOMY PROCEDURE: HISTORICAL APPENDECTOMY; COMMENT: 1981 OTHER SURGICAL HISTORY 08/18/2023 Right PROCEDURE: DE INCISION BONE CORTEX FOOT; COMMENT: right, 5th metatarsal OTHER SURGICAL HISTORY 08/18/2023 Right PROCEDURE: DE BIOPSY BONE OPEN SUPERFICIAL; COMMENT: right, 5th proximal phalanx OTHER SURGICAL HISTORY 08/18/2023 Right PROCEDURE: DE SECONDARY CLOSURE SURG WOUND/DEHSN XTNSV/COMP Medical History [...] (HCC); COMMENT: [facility]en at [facility]. 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
--- OUTSIDE RECORDS SUMMARY | 2025-04-12 15:10 | XMS_ITS | Clinical Summary ---
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 History of malignant basal cell neoplasm of skin 01/27/2019 Overview (09/16/2022): lip Encounters Date Type Department Care Team Description 04/03/2025 1:30 PM EDT Office Visit [facility] [address] [phone] Neo Rollins MD Chronic kidney disease, stage 4 (severe) (HCC) (Primary Dx); Type 2 diabetes mellitus with diabetic chronic kidney disease (HCC); Renal disorder due to type 2 diabetes mellitus <Diabetic nephropathy> (HCC); Anemia in chronic kidney disease 04/02/2025 Refill [facility] [address] [phone] Neo Rollins MD 03/28/2025 Orders Only [facility] [address] [phone] Neo Rollins MD 02/23/2025 Orders Only [facility] [address] [address] Neo Rollins MD Chronic kidney disease, stage [...] Office Visit [facility] [address] [phone] Neo Rollins MD [address] [phone] Health Maintenance Due Date Last [...] ORDERABLES Final Re sult Performing Organization Address [facility] de Phone Number [place] See order comments [place] [address] * (ABNORMAL) Albumin, urine, random (03/28/2025 12:51 [...] ORDERABLES Final Re sult Performing Organization Address [facility] de Phone Number [place] See order comments [place] [address] * (ABNORMAL) Urinalysis with microscopic (03/28/2025 12:51 PM EDT) Color Urine Yellow See orde r comments Appearance Urine Clear See order comments pH Urine 6.5 5.0 - 9.0 See order comments Glucose Urine Negative Negative mg/dL See order comments Blood, Urine Negative Negative See ord er comments Specific [place] Urine 1.010 1.005 - 1.025 See order [...] order comments [place] [address] * (ABNORMAL) Creatinine (03/28/2025 12:10 PM EDT) [...] order comments [place] [address] * (ABNORMAL) PTH, Intact (03/28/2025 12:10 PM EDT) Parathyroid Hormone, Intact 106.6(H) 8.7 - 77.1 pg/mL See order comments 03/28/2025 12:1 0 PM EDT 03/28/2025 12:10 PM EDT us Neo Rollins MD LAB [id number] SOLICITED RESULTS Final Result Performing Organization Address [facility] de Phone Number [place] See order comments [place] [address] * (ABNORMAL) Vitamin D 25 Hydroxy (03/28/2025 [...] ORDERABLES Final Re sult Performing Organization Address [facility] Co de Phone Number [place] See order comments [place] [address] * (ABNORMAL) CBC and Differential (03/28/2025 12:10 [...] order comments [place] [address] * (ABNORMAL) BUN (03/28/2025 12:10 PM EDT) BUN 53(H) 9 - 16 mg/dL See order comments 03/28/2025 12:1 0 PM EDT 03/28/2025 12:10 PM EDT us Neo Rollins MD LAB BLOOD ORDERABLES Final Re sult Performing Organization Address [facility] de Phone Number [place] See order comments [place] [address] * Phosphorus (03/28/2025 12:10 PM EDT) Phosphorus, Serum 2.7 2.7 - 4.5 mg/dL See order comments Blood specimen (specimen) Venous blood / Unknown 03/28/2025 12:10 PM EDT 03/28/2025 12:10 PM EDT us Neo Rollins MD LAB BLOOD ORDERABLES Final Re sult Performing Organization Address [facility] Phone Number [place] See order comments [place] [address] * Magnesium (03/28/2025 12:10 PM EDT) Magnesium 1.6 1.6 - 2.6 mg/dL See order comments Blood specimen (specimen) Venous blood / Unknown 03/28/2025 12:10 PM EDT 03/28/2025 12:10 PM EDT us Neo Rollins MD LAB BLOOD ORDERABLES Final Re sult Performing Organization Address [facility] Phone Number [place] See order comments [place] [address] * Calcium (03/28/2025 12:10 PM EDT) Calcium 9.6 8.4 - 10.2 mg/dL See order comments Blood specimen (specimen) Venous blood / Unknown 03/28/2025 12:10 PM EDT 03/28/2025 12:10 PM EDT us Neo Rollins MD LAB BLOOD ORDERABLES Final Re sult Performing Organization Address [facility]/State/ZIP Co de Phone Number [place] See order comments [place] [address] * Albumin (03/28/2025 12:10 PM EDT) Pathologist [facility] Albumin 3.5 3.5 - 5.0 g/dL See order comments Blood specimen (specimen) Venous blood / Unknown 03/28/2025 12:10 PM EDT 03/28/2025 12:10 PM EDT Neo Rollins MD LAB BLOOD ORDERABLES Final Re sult Performing Organization Address [facility] de Phone Number [place] See order comments [place] [address] * Electrolyte panel (03/28/2025 12:10 PM EDT) Pathologist [facility] Sodium 143 135 - 145 mmol/L See [...] ORDERABLES Final Re sult Performing Organization Address [facility] de Phone Number [place] See order comments [place] [address] * Hemoglobin A1c (04/18/2019 10:34 AM EDT) Pathologist [facility] Hemoglobin A1C 7.0 % [place] Comment: Hemoglobin A1C Reference Range Adults: 4.8 - 6.0 % Non diabetic: < 6.0 % Goal: < 7.0 % Additional Action Suggested: > 8.0 % Note: Hemoglobin A1c results are invalid for patients with abnormal amounts of HbF. Blood transfusions may impact the HbA1c concentration in the patient sample. Estimated Average Glucose 154 MG/DL [facility] Comment: eAG = Estimated average glucose which is %A1C expressed as average glucose, using the formula of the O3C-Mgizqyr Average Glucose study (ADAG), Diabetes Care, Vol.31,#8, 2007 04/18/2019 10:3 4 AM EDT Christopher Zamudio MD LAB BLOOD ORDERABLES Final Resu lt [place] from Last 3 Months or Most Recently Relevant to Health Maintenance Insurance [facility] Medicare Medicaid [place] Medicare [facility] Medicaid [place] Care Teams Marketing Officer Relationship Specialty Start Date End Date Christopher Zamudio MD [address] [place], [place] PCP - General 09/02/20
[2025-04-12 15:23] LABS: Appearance Urine Clear; Glucose Urine UA Negative (Negative); PH 6.5 (5.0-9.0); Specific Gravity - Urine 1.010 (1.005-1.025); UMIC TRIGGER UACC YES
== END 2025-04-12 15:08 | disposition home or self-care (01) ==
LOC: HO.LNP 15:07
DX: I42.9 Cardiomyopathy, unspecified (principal); E11.22 Type 2 diabetes mellitus with diabetic chronic kidney disease; I13.0 Hypertensive heart and chronic kidney disease with heart failure and stage 1 through stage 4 chronic kidney disease, or unspecified chronic kidney disease; N18.4 Chronic kidney disease, stage 4 (severe); I50.9 Heart failure, unspecified; M19.071 Primary osteoarthritis, right ankle and foot; I48.91 Unspecified atrial fibrillation; M10.9 Gout, unspecified
CPT/HCPCS: 81001

== ENCOUNTER 2025-04-19 14:05 | Outpatient (AMB) | payer MEDICARE, SELFPAY ==
[2025-04-19 14:09] VITALS: BP 122/60; PULSE 72; RESP 18; TEMP 36.1; O2SAT 99
--- NOTE | 2025-04-19 14:09 | A.OFFPC_ITS ---
Vital Signs 04/19/25 14:09 Height 5 ft 5 in BMI Reason not done Patient refused/unable BP 122/60 Blood Pressure Location Lt brachial Position Sitting Respiration 18 Pulse 72 Pulse Source Pulse Oximeter Temp 96.9 F Temp Source Temporal Artery Scan Pulse Oximetry (%) 99 Oxygen Delivery Method Room Air Intake Visit Reasons: [facility] [place] 7/2 pneumonia,BARB/CKD4-3 month f/u Base Remover Required: No Accompanied by: Self / Same As Patient Allergies codeine (CODEINE) Allergy (Intermediate, Verified 04/19/25 14:36) BACK PAIN pollen extracts (POLLEN) Allergy (Mild, Verified 04/19/25 14:36) SINUS IRRITATION metoprolol Adverse Reaction (Intermediate, Verified 04/19/25 14:36) Hallucinations Medication List - Last Reconciled 04/19/25 by SANTA Mejias acetaminophen 500 mg PO Q4H PRN [Acucheck glucose monitor As directed Check blood sugar two times a day] [Acucheck test strips As directed check blood sugar two times a day] allopurinol 100 mg PO DAILY apixaban (Eliquis) 2.5 mg PO BID diltiazem HCl CD 120 mg PO DAILY ergocalciferol (vitamin D2) 1,250 mcg PO Q14D fenofibrate 160 mg PO DAILY hydralazine 25 mg PO BID 90 days insulin NPH and regular human 100 unit/mL (70-30) (Humulin 70/30 U-100 KwikPen) 5 - 15 units (0.05 - 0.15 mL) subcut BEDTIME multivitamin 1 tab PO DAILY omeprazole 20 mg PO DAILY@0630 Tobacco use date assessed: 04/19/25 Fall risk assessment: No Falls in past year Last assessed Fall Risk: 04/19/25 Dental Screening Dental Screen Date: 04/19/25 Did you have a dental visit in the last 12 months?: No Did you have a dental problem in the last 6 months where you did not have access to dental care?: No Was dental information given to patient?: No HPI [facility] [place] 7/2 pneumonia,BARB/CKD4-3 month f/u HPI Details The patient is an 89-year-old female presenting with management of diabetes mellitus, hypertension, anemia, and chronic kidney disease. The patient has been managing diabetes mellitus with careful monitoring of blood glucose levels, with a recent A1c of 6.2%. She has been advised to maintain slightly higher glucose levels to reduce the risk of hypoglycemia-related falls due to her age. The patient reports a history of anemia, for which she receives Procrit injections every two weeks. Her hemoglobin levels have improved from 9.7 to 10.4 g/dL. Hypertension is being managed effectively, with recent blood pressure readings being satisfactory. The patient has a history of chronic kidney disease, with recent improvements noted after hospitalization and IV fluid administration. Her kidney function has shown fluctuations but remains within an acceptable range. The patient has been diagnosed with vitamin D deficiency, with levels at 26.8 ng/mL, slightly below the desired threshold of 30 ng/mL. Arthritis affects her hands, causing dexterity issues, particularly with smaller objects like test strips. The patient has right Charcot foot, which has required surgical intervention and ongoing podiatric care. She experiences urinary frequency, which has led to a referral to a urologist for further evaluation. Reports that she is having difficulty with the new test strips. Reports that they are two small. walks with walker short distance, had an appointment with the foot couple days ago, reports that she will see him again in 3 months, she has a erick in her right foot. Patient's son reports that they we will be applying for disability to see if they could get the patient on [facility] because her care has been getting expensive. [facility] Medical History (Updated 04/22/25 @ 14:47 by SANTA Mejias) Lymphedema Diabetes mellitus BARB (acute kidney injury) Diabetes mellitus with coincident hypertension Hyperlipidemia CKD (chronic kidney disease) stage 4, GFR 15-29 ml/min Atrial fibrillation Osteomyelitis Gout Anemia Hx of type A viral hepatitis Obesity Surgical History History of foot surgery History of surgical removal of skin lesion History of biopsy History of excision of lesion H/O varicose vein ligation History of cholecystectomy Family History Father Gastric cancer Mother Acute CVA (cerebrovascular accident) Diabetes Brother Colon cancer Social History Household Members: Family Household Members Other:: sonvivek Housing: House Do you presently have visiting nurse or other home services: No Alcohol intake: never Patient Tobacco Use Status: Never used Tobacco e-Cigarette/Vaping Use: Never Used Second Hand Smoke Exposure: No Advance Directives Date on File: 07/16/21 service: No Current occupational status: retired Cognitive needs: Yes (walker ) Hearing needs: No Vision needs: Yes Questionnaire PHQ-9 Over the last 2 weeks, how often have you been bothered by any of the following problems? 1. Little interest or pleasure in doing things: not at all 2. Feeling down, depressed, or hopeless: several days 3. Trouble falling or staying asleep, or sleeping too much: nearly every day 4. Feeling tired or having little energy: more than half the days 5. Poor appetite or overeating: not at all 6. Feeling bad about yourself - or that you are a failure or have let yourself or your family down: not at all 7. Trouble concentrating on things, such as reading the newspaper or watching television: nearly every day 8. Moving or speaking so slowly that other people could have noticed. Or the opposite - being so fidgety or restless that you have been moving around a lot more than usual: not at all 9. Thoughts that you would be better off or of hurting yourself in some way: not at all Total score: 9 Depression Screening Interpretation: Positive Depression Screening Done: Yes Source: Developed by Drs. Wilber Ortega, Vickie Briseno, David Calzada and colleagues, with an educational aide from [employer]. Thrive Questionnaire Date Thrive assessed: 04/19/25 I am a: Patient What is your living situation today?: I have a steady place to live Within the past 12 months, did the food you bought not last and you didn't have the money to get more?: Never true Within the past 12 months, did you worry whether your food would run out before you got money to buy more?: Never true Do you have trouble paying for medicines?: No Do you have trouble getting transportation to medical appointments?: No Do you have trouble paying your heating and electricity bill?: No Do you have trouble taking care of your child, family member or friend?: Yes Do you have trouble with day-to-day activities such as bathing, preparing meals, shopping, managing finances, etc.?: Yes Are you currently unemployed and looking for a job?: No Are you interested in more education?: No Please select the resources that you would like help with: None Currently or been in a relationship where the following occur: No concerns reported THRIVE Score: 0 AUDIT C Alcohol Use Questionnaire (AUDIT-C) 1. How often do you have a drink containing alcohol?: Never Total Score: 0 IWONA-7 AMB Questionnaire IWONA-7 Date IWONA - 7 assessed: 04/19/25 Feeling nervous, anxious, or on edge: 0 = Not at all Not being able to stop or control worryin = More than half the days Worrying too much about different things: 2 = More than half the days Trouble relaxin = More than half the days Being so restless that it is hard to sit still: 0 = Not at all Becoming easily annoyed or irritable: 2 = More than half the days Feeling afraid as if something awful might happen: 0 = Not at all Total WIONA-7 score (0-4 normal; 5-9 mild; 10-14 moderate; 15-21 severe): 8 Source: Developed by Drs. Wilber Ortega, Vickie Briseno, David Calzada and colleagues, with an educational aide from [employer]. Review of Systems Const Denies headache(s) Eyes Denies loss of vision ENT Denies vertigo, Denies dizziness, Denies headache(s), Denies sore throat and Reports other (Ghvl-[id number]-llwiqfz) Card Denies chest pain, Reports leg edema (BLE) and Denies lightheadedness Resp Denies cough, Denies hemoptysis and Denies wheezing GI Denies abdominal pain, Denies melena, Denies constipation, Denies diarrhea and Denies vomiting Denies urinary frequency, Denies dysuria, Denies urinary urgency and Reports other (FREQUENT URINATION) Musc Denies arthralgias, Reports joint swelling (Right ankle), Denies numbness and Denies tingling Skin/Breast Reports skin swelling (BLE) and Reports other (Right foot maceration-improving) Neuro Denies Abnormal speech present, Denies behavioral changes, Denies vertigo, Denies dizziness, Denies headache(s), Reports lack of coordination (Decreased dexterity), Denies loss of vision, Denies memory loss, Denies numbness and Denies tingling Psych Denies anxiety, Denies behavioral changes, Denies depression, Denies memory loss and Denies panic attacks Richard/Lymph Denies easy bleeding and Denies easy bruising Aller/Immun Denies wheezing Physical exam (Primary Care) Vital Signs: Last Vital Signs Temp 96.9 F 04/19/25 14:09 Pulse 72 04/19/25 14:09 Resp 18 04/19/25 14:09 BP 122/60 04/19/25 14:09 Pulse Ox 99 04/19/25 14:09 Oxygen Delivery Method Room Air 04/19/25 14:09 Tobacco/Smoking Status: Tobacco use Status Tobacco use date assessed 04/19/25 04/19/25 14:11 Patient Tobacco Use Status Never used Tobacco 04/19/25 14:11 e-Cigarette/Vaping Use Never Used 04/19/25 14:11 PHQ-9: PHQ-9 Score PHQ-9: Total score 9 04/19/25 15:00 Depression Screening Interpretation: Positive Thrive Assessment: Date of Thrive Assessment Date Thrive assessed 04/19/25 04/19/25 14:11 Currently or been in a relationship where the following occur: No concerns reported Const General: healthy appearing, no acute distress, alert and awake Nutritional Appearance: overweight Orientation/consciousness: oriented to person, oriented to place and oriented to time HENWI Head: Yes normocephalic Ears: TM's normal bilaterally General nose exam: Normal nasal mucous membranes and turbinates present Eyes Conjunctivae: conjunctivae normal Sclerae: sclerae normal Pupils: Equal, round and reactive pupils present Neck Neck: Yes no lymphadenopathy and Yes no JVD Thyroid: Thyroid normal Carotids: no bruits Resp Effort & Inspection: normal respiratory effort and not tachypneic Auscultation: no crackles, no rales, no rhonchi and no wheezes Cardio Rate: regular rate Rhythm: regular rhythm Heart sounds: no murmurs and normal S1 and S2 GI Inspection: Yes obesity Palpation (GI): Soft to palpation, nontender, no hepatomegaly and no splenomegaly Auscultation: normal bowel sounds General: Yes no CVA tenderness Back/Spine/Pelvis Back: no CVA tenderness Skin General skin exam: dry skin and Excoriation (right foot improving per podiatry note) Neuro General: oriented to person, oriented to place and oriented to time Cranial nerves: Yes Equal, round and reactive pupils present Speech: No Abnormal speech present Gait exam (Neuro): Normal gait present Motor exam (neuro): no tremor noted Extrem Right upper extremity: full ROM Left upper extremity: full ROM Right lower extremity: full ROM, lower leg (Wraps in place) Details: pitting edema Details: 3+ and ankle (Charcoal foot status post surgery); no edema Left lower extremity: full ROM and lower leg Details: pitting edema Details: 2+; no edema Psych Mental Status: mental status grossly normal Speech and movement: Normal speech and movement present Affect: normal affect Attitude: cooperative Thought process: Normal thought process present Results Reviewed Results Reviewed: Laboratory Tests 03/28/25 03/28/25 04/11/25 08:00 12:00 11:40 WBC RBC Hgb Hct MCV MCH MCHC RDW Plt Count MPV Sodium 143 Potassium 4.2 Chloride 111 H Carbon Dioxide 20 L Anion Gap 16 BUN 56 H Creatinine 2.23 H Estimated GFR 21 Fasting Glucose 110 H Estimat Average Glucose 131 Hemoglobin A1c % 6.2 H Uric Acid 5.1 Calcium 9.4 Total Bilirubin 0.6 AST 28 ALT 6 Alkaline Phosphatase 67 Total Protein 6.7 Albumin 3.6 Triglycerides 92 Cholesterol 121 LDL Cholesterol, Calc 63 HDL Cholesterol 40 L 25-OH Vitamin D Total 26.8 L TSH 1.25 PTH Intact 106.6 H Urine Color Urine Appearance Urine pH Ur Specific Hendricks Urine Protein Urine Glucose (UA) Urine Ketones Urine Blood Urine Nitrite Ur Leukocyte Esterase Urine RBC Urine WBC Ur Squamous Epith Cells Urine Bacteria Hyaline Casts Microalb/Creat Ratio 4100.4 H Protein/Creatinin Ratio 6.41 H 04/11/25 04/12/25 11:41 08:00 WBC 8.5 RBC 3.61 L Hgb 10.4 L Hct 32.2 L MCV 89.2 MCH 28.8 MCHC 32.3 RDW 16.2 H Plt Count 192 MPV 13.5 H Sodium Potassium Chloride Carbon Dioxide Anion Gap BUN Creatinine Estimated GFR Fasting Glucose Estimat Average Glucose Hemoglobin A1c % Uric Acid Calcium Total Bilirubin AST ALT Alkaline Phosphatase Total Protein Albumin Triglycerides Cholesterol LDL Cholesterol, Calc HDL Cholesterol 25-OH Vitamin D Total TSH PTH Intact Urine Color Yellow Urine Appearance Clear Urine pH 6.5 Ur Specific Hendricks 1.010 Urine Protein 300 (3+) H Urine Glucose (UA) Negative Urine Ketones Negative Urine Blood Negative Urine Nitrite Negative Ur Leukocyte Esterase Negative Urine RBC 0-2 Urine WBC 0-5 Ur Squamous Epith Cells 0-2 Urine Bacteria None Seen Hyaline Casts 0-2 Microalb/Creat Ratio Protein/Creatinin Ratio Coding Level of Care Code Est Pt Level 4 (37824) Diagnoses Hypertension, unspecified type I10 Hypertension type: unspecified 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, unspecified laterality M1A.3790 Gout site: toe Gout etiology: due to renal impairment Chronicity: chronic Laterality: unspecified laterality Presence of tophus: without tophus Normochromic normocytic anemia D64.9 CKD (chronic kidney disease) stage 4, GFR 15-29 ml/min N18.4 Congestive heart failure, unspecified HF chronicity, unspecified heart failure type I50.9 Heart failure type: unspecified Heart failure chronicity: unspecified Hyperlipidemia, unspecified hyperlipidemia type E78.5 Hyperlipidemia type: unspecified Atrial fibrillation, unspecified type I48.91 Atrial fibrillation type: unspecified Lymphedema I89.0 Charcot joint of right foot, non-diabetic M14.671 Frequent urination R35.0 Vitamin D deficiency E55.9 Insulin dependent type 2 diabetes mellitus E11.9; Z79.4 Arthritis of both hands M19.041; M19.042 Time Spent (min) 41 Assessment & Plan Assessment & Plan (1) Hypertension: Code(s): I10 - Essential (primary) hypertension Category: Medical Qualifiers: Hypertension type: unspecified Qualified Code(s): I10 - Essential (primary) hypertension Plan: Blood pressure 122/60 within goal Reinforced low-salt diet Continue diltiazem 120 mg daily, hydralazine 25 mg b.i.d. (2) Gout: Code(s): M10.9 - Gout, unspecified Category: Medical Qualifiers: Gout site: toe Gout etiology: due to renal impairment Chronicity: chronic Laterality: unspecified laterality Presence of tophus: without tophus Qualified Code(s): M1A.3790 - Chronic gout due to renal impairment, unspecified ankle and foot, without tophus (tophi) Plan: Uric acid 5.1 Continue allopurinol 100 mg daily (3) Normochromic normocytic anemia: Code(s): D64.9 - Anemia, unspecified Category: Medical Plan: The patient receives Procrit injections every two weeks to manage her anemia, with hemoglobin levels improving from 9.7 to 10.4 g/dL. We will continue to monitor CBC. Follow up with Hematology as scheduled (4) CKD (chronic kidney disease) stage 4, GFR 15-29 ml/min: Code(s): N18.4 - Chronic kidney disease, stage 4 (severe) Category: Medical Plan: The patient's chronic kidney disease has shown improvement following hospitalization and IV fluid administration, with kidney function remaining within an acceptable range. Avoid nephro toxicity drugs. Improve fluid hydration. Follow up with Nephrology as scheduled (5) CHF (congestive heart failure): Code(s): I50.9 - Heart failure, unspecified Category: Medical Qualifiers: Heart failure type: unspecified Heart failure chronicity: unspecified Qualified Code(s): I50.9 - Heart failure, unspecified Plan: Lungs sound clear. Denies dyspnea and no increasing leg edema. We will continue to monitor (6) Hyperlipidemia: Code(s): E78.5 - Hyperlipidemia, unspecified Category: Medical Qualifiers: Hyperlipidemia type: unspecified Qualified Code(s): E78.5 - Hyperlipidemia, unspecified Plan: Triglycerides 92, total cholesterol 121, LDL 63, HDL 40 Continue fenofibrate 160 mg daily We will repeat lipid panel in 3 months (7) Atrial fibrillation: Code(s): I48.91 - Unspecified atrial fibrillation Category: Medical Qualifiers: Atrial fibrillation type: unspecified Qualified Code(s): I48.91 - Unspecified atrial fibrillation Plan: Persistent AFib. Continue apixaban 2.5 mg b.i.d., diltiazem 120 mg daily. Avoid triggers (8) Lymphedema: Code(s): I89.0 - Lymphedema, not elsewhere classified Category: Medical Plan: The patient was referred to the lymphedema clinic by Podiatry. Ongoing, right worse than left due to Charcot foot. Wraps intact to lower extremities. (9) Charcot joint of right foot, non-diabetic: Code(s): M14.671 - Charcot's joint, right ankle and foot Category: Medical Plan: On 05/29/2024. Patient had a right BECKY, PTT Release, medial capsular release, talectomy, tibiocalcaneal fusion. Skin maceration of right lower extremity has improved with compression wrapping which her son is doing at home. CT scan of right ankle and hindfoot on 09/25/2024 showed solid bony consolidation at the fusion between the distal tibia and the calcaneus. Hardware intact. No evidence of complication. The patient was referred to the lymphedema clinic by Podiatry. (10) Frequent urination: Code(s): R35.0 - Frequency of micturition Category: Medical Plan: Patient's urine without bacteria. She was referred to Urology ([facility]). 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 She has been advised to maintain slightly higher glucose levels to prevent hypoglycemia-related falls due to her age. Continue NPH 70- 30. 15 units at bedtime subQ (13) Arthritis of both hands: Code(s): M19.041 - Primary osteoarthritis, right hand; M19.042 - Primary osteoarthritis, left hand Category: Medical Plan: Decreased dexterity and the patient is having difficulty checking her blood sugar with a new smaller strips. Discussed with pharmacy about the largest strips/meter that are available. And, this was ordered for the patient. Orders: Orders Lipid Panel 3 Months E11.59 - Type 2 diabetes mellitus with other circulatory complications, E78.5 - Hyperlipidemia, unspecified, I10 - Essential (primary) hypertension, I15.2 - Hypertension secondary to endocrine disorders, I42.9 - Cardiomyopathy, unspecified, I50.9 - Heart failure, unspecified, M1A.3790 - Chronic gout due to renal impairment, unspecified ankle and foot, without tophus (tophi), R94.39 - Abnormal result of other cardiovascular function study UA CC w/rflx Micro + Cult 3 Months E11.59 - Type 2 diabetes mellitus with other circulatory complications, E78.5 - Hyperlipidemia, unspecified, I10 - Essential (primary) hypertension, I15.2 - Hypertension secondary to endocrine disorders, I42.9 - Cardiomyopathy, unspecified, I50.9 - Heart failure, unspecified, M1A.3790 - Chronic gout due to renal impairment, unspecified ankle and foot, without tophus (tophi), R94.39 - Abnormal result of other cardiovascular function study Uric Acid 3 Months M1A.3790 - Chronic gout due to renal impairment, unspecified ankle and foot, without tophus (tophi) Complete Blood Count Auto Diff 3 Months E11.59 - Type 2 diabetes mellitus with other circulatory complications, E78.5 - Hyperlipidemia, unspecified, I10 - Essential (primary) hypertension, I15.2 - Hypertension secondary to endocrine disorders, I42.9 - Cardiomyopathy, unspecified, I50.9 - Heart failure, unspecified, M1A.3790 - Chronic gout due to renal impairment, unspecified ankle and foot, without tophus (tophi), R94.39 - Abnormal result of other cardiovascular function study Comprehensive [place]. Panel Fast 3 Months E11.59 - Type 2 diabetes mellitus with other circulatory complications, E78.5 - Hyperlipidemia, unspecified, I10 - Essential (primary) hypertension, I15.2 - Hypertension secondary to endocrine di sorders, I42.9 - Cardiomyopathy, unspecified, I50.9 - Heart failure, unspecified, M1A.3790 - Chronic gout due to renal impairment, unspecified ankle and foot, without tophus (tophi), R94.39 - Abnormal result of other cardiovascular function study TSH reflex Free T4 3 Months E11.59 - Type 2 diabetes mellitus with other circulatory complications, E78.5 - Hyperlipidemia, unspecified, I10 - Essential (primary) hypertension, I15.2 - Hypertension secondary to endocrine disorders, I42.9 - Cardiomyopathy, unspecified, I50.9 - Heart failure, unspecified, M1A.3790 - Chronic gout due to renal impairment, unspecified ankle and foot, without tophus (tophi), R94.39 - Abnormal result of other cardiovascular function study Vitamin D 25-OH Total 3 Months E11.59 - Type 2 diabetes mellitus with other circulatory complications, E78.5 - Hyperlipidemia, unspecified, I10 - Essential (primary) hypertension, I15.2 - Hypertension secondary to endocrine disorders, I42.9 - Cardiomyopathy, unspecified, I50.9 - Heart failure, unspecified, M1A.3790 - Chronic gout due to renal impairment, unspecified ankle and foot, without tophus (tophi), R94.39 - Abnormal result of other cardiovascular function study Medications: New blood-glucose meter As directed Check blood sugar three times a day 1 ea 0RF E11.9 - Type 2 diabetes mellitus without complications, Z79.4 - retirement (current) use of insulin blood sugar diagnostic (Accu-Chek Radha Plus test strips) As directed Check blood sugar tid 100 ea 3RF E11.69 - Type 2 diabetes mellitus with other specified complication, E11.9 - Type 2 diabetes mellitus without complications, 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
--- OUTSIDE RECORDS SUMMARY | 2025-04-19 14:53 | XMS_ITS | Clinical Summary ---
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 History of malignant basal cell neoplasm of skin 01/27/2019 Overview (09/16/2022): lip Encounters Date Type Department Care Team Description 04/03/2025 1:30 PM EDT [facility] [address] [phone] Neo Rollins MD Chronic kidney disease, stage 4 (severe) (HCC) (Primary Dx); Type 2 diabetes mellitus with diabetic chronic kidney disease (HCC); Renal disorder due to type 2 diabetes mellitus <Diabetic nephropathy> (HCC); Anemia in chronic kidney disease 04/02/2025 Refill [facility] [address] [address] Neo Rollins MD 03/28/2025 Orders Only [facility] [address] [address] Neo Rollins MD 02/23/2025 Orders Only [facility] [address] [phone] Neo Rollins MD Chronic kidney disease, stage [...] Office Visit [facility] [address] [phone] Neo Rollins MD [address] [address] Health Maintenance Due Date Last [...] Final Re sult Performing Organization Address [facility] de Phone Number [place] See order comments [place] [address] * (ABNORMAL) Albumin, urine, random (03/28/2025 12:51 [...] sult Performing Organization Address [email or web address] de Phone Number [place] See order comments [place] [address] * (ABNORMAL) Urinalysis with microscopic (03/28/2025 12:51 PM EDT) Color Urine Yellow See orde r comments Appearance Urine Clear See order comments pH Urine 6.5 5.0 - 9.0 See order comments Glucose Urine Negative Negative mg/dL See order comments Blood, Urine Negative Negative See ord er comments Specific [place] Urine 1.010 1.005 - 1.025 See order [...] order comments [place] [address] * (ABNORMAL) Creatinine (03/28/2025 12:10 PM EDT) [...] order comments [place] [address] * (ABNORMAL) PTH, Intact (03/28/2025 12:10 PM EDT) Parathyroid Hormone, Intact 106.6(H) 8.7 - 77.1 pg/mL See order comments 03/28/2025 12:1 0 PM EDT 03/28/2025 12:10 PM EDT us Neo Rollins MD LAB [id number] SOLICITED RESULTS Final Result Performing Organization Address [facility] [[email or web address]] de Phone Number [place] See order comments [place] [address] * (ABNORMAL) Vitamin D 25 Hydroxy (03/28/2025 [...] sult Performing Organization Address [facility] Co de Phone Number [place] See order comments [place] [address] * (ABNORMAL) CBC and Differential (03/28/2025 12:10 [...] order comments [place] [address] * (ABNORMAL) BUN (03/28/2025 12:10 PM EDT) BUN 53(H) 9 - 16 mg/dL See order comments 03/28/2025 12:1 0 PM EDT 03/28/2025 12:10 PM EDT us Neo Rollins MD LAB BLOOD ORDERABLES Final Re sult Performing Organization Address [email or web address] de Phone Number [place] See order comments [place] [address] * Phosphorus (03/28/2025 12:10 PM EDT) Phosphorus, Serum 2.7 2.7 - 4.5 mg/dL See order comments Blood specimen (specimen) Venous blood / Unknown 03/28/2025 12:10 PM EDT 03/28/2025 12:10 PM EDT us Neo Rollins MD LAB BLOOD ORDERABLES Final Re sult Performing Organization Address [facility] Phone Number [place] See order comments [place] [address] * Magnesium (03/28/2025 12:10 PM EDT) Magnesium 1.6 1.6 - 2.6 mg/dL See order comments Blood specimen (specimen) Venous blood / Unknown 03/28/2025 12:10 PM EDT 03/28/2025 12:10 PM EDT us Neo Rollins MD LAB BLOOD ORDERABLES Final Re sult Performing Organization Address [facility] Phone Number [place] See order comments [place] [address] * Calcium (03/28/2025 12:10 PM EDT) Calcium 9.6 8.4 - 10.2 mg/dL See order comments Blood specimen (specimen) Venous blood / Unknown 03/28/2025 12:10 PM EDT 03/28/2025 12:10 PM EDT us Neo Rollins MD LAB BLOOD ORDERABLES Final Re sult Performing Organization Address [facility]/State/ZIP Co de Phone Number [place] See order comments [place] [address] * Albumin (03/28/2025 12:10 PM EDT) Pathologist [facility] Albumin 3.5 3.5 - 5.0 g/dL See order comments Blood specimen (specimen) Venous blood / Unknown 03/28/2025 12:10 PM EDT 03/28/2025 12:10 PM EDT Neo Rollins MD LAB BLOOD ORDERABLES Final Re sult Performing Organization Address [email or web address] de Phone Number [place] See order comments [place] [address] * Electrolyte panel (03/28/2025 12:10 PM EDT) Pathologist [facility] Sodium 143 135 - 145 mmol/L See [...] sult Performing Organization Address [email or web address]] de Phone Number [place] See order comments [place] [address] * Hemoglobin A1c (04/18/2019 10:34 AM EDT) Pathologist [facility] Hemoglobin A1C 7.0 % [place] Comment: Hemoglobin A1C Reference Range Adults: 4.8 - 6.0 % Non diabetic: < 6.0 % Goal: < 7.0 % Additional Action Suggested: > 8.0 % Note: Hemoglobin A1c results are invalid for patients with abnormal amounts of HbF. Blood transfusions may impact the HbA1c concentration in the patient sample. Estimated Average Glucose 154 MG/DL [facility] Comment: eAG = Estimated average glucose which is %A1C expressed as average glucose, using the formula of the A2I-Ngflhdx Average Glucose study (ADAG), Diabetes Care, Vol.31,#8, 2007 04/18/2019 10:3 4 AM EDT Christopher Zamudio MD LAB BLOOD ORDERABLES Final Resu lt [place] from Last 3 Months or Most Recently Relevant to Health Maintenance Insurance [facility] Medicare Medicaid [place] Medicare [facility] Medicaid [place] Care Teams Dial Printer Relationship Specialty Start Date End Date Christopher Zamudio MD [address] [place], [place] PCP - General 09/02/20
--- OUTSIDE RECORDS SUMMARY | 2025-04-19 14:53 | XMS_ITS | Clinical Summary ---
Author Organization [employer] Address [address] [place] [address] [address] [place] [address] Care Team Providers Care Motorcycle Tester Name Role Phone Unavailable Primary Care Provider [...]
--- OUTSIDE RECORDS SUMMARY | 2025-04-19 14:53 | XMS_ITS | Clinical Summary ---
Author Organization [facility] Address [address] [place] [phone] Phone Care Team Providers Care Director Name Role Phone Unknown, Unknown Primary Care [...] MEDEX SUPPLEMENT MEDICARE PART A & B [facility] FULL MEDEX SUPPLEMENT MEDICARE PART A & B [employer] NET FULL MEDEX SUPPLEMENT MEDICARE PART A & B HEALTH SAFETY NET FULL [employer] MEDEX SUPPLEMENT MEDICARE PART A & B [facility] FULL [employer] MEDEX SUPPLEMENT MEDICARE PART A & B [facility] FULL MEDEX SUPPLEMENT MEDICARE PART A & B [employer] NET FULL MEDEX SUPPLEMENT MEDICARE PART A & B [employer] NET FULL [employer] MEDEX SUPPLEMENT MEDICARE PART A & B [facility] FULL [employer] MEDEX SUPPLEMENT MEDICARE PART A & B [facility] FULL Care Teams Director Relationship Specialty Start Date End Date Unknown, Unknown, PCP - General 12/21/18 Additional Source Comments The information contained in this document represents components of the legal health record. It is not the complete legal health record.[facility]
--- OUTSIDE RECORDS SUMMARY | 2025-04-19 14:53 | XMS_ITS | Patient Health Record ---
Author Organization [facility] Address [address] [place] [address] Care Team Providers Care Government Relations Analyst Name Role Phone PriceWilber [phone] Reason For Referral No Information Plan Of Treatment No Information
--- OUTSIDE RECORDS SUMMARY | 2025-04-19 14:54 | XMS_ITS | Clinical Summary ---
Author Organization [facility] Address [address] [place] [address] Care Team Providers Care Dowel Inspector Name Role Phone Christopher Zamudio MD Primary Care Provider [phone] Surgical History Surgery Date Site/Laterality Comments CHOLECYSTECTOMY PROCEDURE: HISTORICAL CHOLECYSTECTOMY; COMMENT: 1981 LEG SURGERY 1985 PROCEDURE: HISTORICAL LEG SURGERY; COMMENT: Vein ablation APPENDECTOMY PROCEDURE: HISTORICAL APPENDECTOMY; COMMENT: 1981 OTHER SURGICAL HISTORY 08/18/2023 Right PROCEDURE: NC INCISION BONE CORTEX FOOT; COMMENT: right, 5th metatarsal OTHER SURGICAL HISTORY 08/18/2023 Right PROCEDURE: NC BIOPSY BONE OPEN SUPERFICIAL; COMMENT: right, 5th proximal phalanx OTHER SURGICAL HISTORY 08/18/2023 Right PROCEDURE: NC SECONDARY CLOSURE SURG WOUND/DEHSN XTNSV/COMP Medical History [...] (HCC); COMMENT: [facility] at [facility]. History of cataract 10/17/2020 DX:History o f cataract Type 2 diabetes mellitus wit h cataract (CMS/HCC V24, CMS/HCC V28) 10/17/2020 DX:Type 2 diabetes mellitus with cataract ([facility]) Arrhythmia 10/17/2020 DX:Arrhythmia Family History Medical History [...] Documents on File Type Date Recorded Patient Electronic Device Repairer Expl anation Health Care Decision (hx) 08/20/2023 AD العراقي DIRECTIVE Health Care Decision (hx) 08/20/2023 AD العراقي DIRECTIVE Care Teams Dowel Inspector Relationship Specialty Start Date End Date Christopher Zamudio MD [address] [place] [address] Drive [address] [place] [address] PCP - General 09/10/16
== END 2025-04-19 15:13 | disposition home or self-care (01) ==
LOC: HO.HMCH 14:06
DX: I13.0 Hypertensive heart and chronic kidney disease with heart failure and stage 1 through stage 4 chronic kidney disease, or unspecified chronic kidney disease (principal); N18.4 Chronic kidney disease, stage 4 (severe); I50.9 Heart failure, unspecified; I48.91 Unspecified atrial fibrillation; E11.22 Type 2 diabetes mellitus with diabetic chronic kidney disease; Z79.4 Long term (current) use of insulin; M1A.3790 Chronic gout due to renal impairment, unspecified ankle and foot, without tophus (tophi); D64.9 Anemia, unspecified; E78.5 Hyperlipidemia, unspecified; I89.0 Lymphedema, not elsewhere classified; M14.671 Charcot's joint, right ankle and foot; R35.0 Frequency of micturition

== ENCOUNTER → 2025-04-19 14:05 | Outpatient (BNVA) | payer MEDICARE, SELFPAY | DX: I13.0 Hypertensive heart and chronic kidney disease with heart failure and stage 1 through stage 4 chronic kidney disease, or unspecified chronic kidney disease (principal); E11.22 Type 2 diabetes mellitus with diabetic chronic kidney disease; N18.4 Chronic kidney disease, stage 4 (severe); I50.9 Heart failure, unspecified; M1A.3790 Chronic gout due to renal impairment, unspecified ankle and foot, without tophus (tophi); D64.9 Anemia, unspecified; E78.5 Hyperlipidemia, unspecified; I48.91 Unspecified atrial fibrillation; I89.0 Lymphedema, not elsewhere classified; M14.671 Charcot's joint, right ankle and foot; R35.0 Frequency of micturition; E55.9 Vitamin D deficiency, unspecified; M19.041 Primary osteoarthritis, right hand; M19.042 Primary osteoarthritis, left hand; Z79.4 Long term (current) use of insulin | CPT/HCPCS: 99212 ==

== ENCOUNTER 2025-04-25 11:06 | Outpatient (REF) | payer MEDICARE, SELFPAY ==
[2025-04-25 11:40] LABS: MANUAL DIFF FLAG NO
[2025-04-25 11:45] LABS: Hematocrit 32.1 % (37.0-47.0); Hemoglobin 10.3 g/dl (12.0-16.0); Imm Gran Abs Auto 0.02 X10*3/uL (0.00-0.03); Imm Gran Pct Auto 0.3 % (0.0-0.4); Lymphocytes Absolute Auto 1.2 X10*3/uL (1.2-4.9); Mean Corpuscular HGB Conc 32.1 g/dl (31.0-35.0); Mean Corpuscular Hemoglobin 29.1 pg (27.0-33.0); Mean Corpuscular Volume 90.7 fL (80.0-98.0); NRBC Abs Auto 0.000 X10*3/uL (0.0-0.012); NRBC Pct Auto 0.0 /100WBC (0.0-0.2); Platelet Count 220 X10*3/uL (160-400); Red Blood Count 3.54 X10*6/uL (4.20-5.50); White Blood Count 6.6 X10*3/uL (4.8-10.8)
--- OUTSIDE RECORDS SUMMARY | 2025-04-25 13:43 | XMS_ITS | Clinical Summary ---
Author Organization [facility] Address [address] [place] [phone] Phone Care Team Providers Care Director Mba Name Role Phone Unknown, Unknown Primary Care [...] MEDEX SUPPLEMENT MEDICARE PART A & B [facility] FULL MEDEX SUPPLEMENT MEDICARE PART A & B HEALTH SAFETY NET FULL MEDEX SUPPLEMENT MEDICARE PART A & B HEALTH SAFETY NET FULL [employer] MEDEX SUPPLEMENT MEDICARE PART A & B [facility] FULL [employer] MEDEX SUPPLEMENT MEDICARE PART A & B [facility] FULL MEDEX SUPPLEMENT MEDICARE PART A & B [employer] FULL MEDEX SUPPLEMENT MEDICARE PART A & B [employer] FULL [employer] MEDEX SUPPLEMENT MEDICARE PART A & B [facility] FULL [employer] [place] MEDEX SUPPLEMENT MEDICARE PART A & B [facility] FULL Care Teams Director Mba Relationship Specialty Start Date End Date Unknown, Unknown, PCP - General 12/21/18 Additional Source Comments The information contained in this document represents components of the legal health record. It is not the complete legal health record.[facility]
--- OUTSIDE RECORDS SUMMARY | 2025-04-25 13:43 | XMS_ITS | Clinical Summary ---
Author Organization [employer] Address [address] [place] [address] 7t [place] [address] Care Team Providers Care Robotics Technologist Name Role Phone Unavailable Primary Care Provider [...]
--- OUTSIDE RECORDS SUMMARY | 2025-04-25 13:43 | XMS_ITS | Clinical Summary ---
Author Organization [facility] Address [address] [place] [phone] Care Team Providers Care Culvert Installer Name Role Phone Christopher Zamudio MD Primary Care Provider [phone] Surgical History Surgery Date Site/Laterality Comments CHOLECYSTECTOMY PROCEDURE: HISTORICAL CHOLECYSTECTOMY; COMMENT: 1981 LEG SURGERY 1985 PROCEDURE: HISTORICAL LEG SURGERY; COMMENT: Vein ablation APPENDECTOMY PROCEDURE: HISTORICAL APPENDECTOMY; COMMENT: 1981 OTHER SURGICAL HISTORY 08/18/2023 Right PROCEDURE: ND INCISION BONE CORTEX FOOT; COMMENT: right, 5th metatarsal OTHER SURGICAL HISTORY 08/18/2023 Right PROCEDURE: ND BIOPSY BONE OPEN SUPERFICIAL; COMMENT: right, 5th proximal phalanx OTHER SURGICAL HISTORY 08/18/2023 Right PROCEDURE: ND SECONDARY CLOSURE SURG WOUND/DEHSN XTNSV/COMP Medical History [...] (HCC); COMMENT: [facility]. 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
--- OUTSIDE RECORDS SUMMARY | 2025-04-25 13:43 | XMS_ITS | Clinical Summary ---
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 History of malignant basal cell neoplasm of skin 01/27/2019 Overview (09/16/2022): lip Encounters Date Type Department Care Team Description 04/03/2025 1:30 PM EDT [facility] [address] [phone] Neo Rollins MD Chronic kidney disease, stage 4 (severe) (HCC) (Primary Dx); Type 2 diabetes mellitus with diabetic chronic kidney disease (HCC); Renal disorder due to type 2 diabetes mellitus <Diabetic nephropathy> (HCC); Anemia in chronic kidney disease 04/02/2025 Refill [facility] [address] [phone] Neo Rollins MD 03/28/2025 Orders Only [facility] [address] [phone] Neo Rollins MD 02/23/2025 Orders Only [facility] [address] [phone] Neo Rollins MD Chronic kidney disease, stage [...] Office Visit [facility] [address] [phone] Neo Rollins MD [address] [phone] Health Maintenance Due Date Last [...] ORDERABLES Final Re sult Performing Organization Address [facility] de Phone Number [place] See order comments [place] [address] * (ABNORMAL) Albumin, urine, random (03/28/2025 12:51 [...] Final Re sult Performing Organization Address [facility] de Phone Number [place] See order comments [place] [address] * (ABNORMAL) Urinalysis with microscopic (03/28/2025 12:51 PM EDT) Color Urine Yellow See orde r comments Appearance Urine Clear See order comments pH Urine 6.5 5.0 - 9.0 See order comments Glucose Urine Negative Negative mg/dL See order comments Blood, Urine Negative Negative See ord er comments Specific [place] Urine 1.010 1.005 - 1.025 See order [...] order comments [place] [address] * (ABNORMAL) Creatinine (03/28/2025 12:10 PM EDT) [...] order comments [place] [address] * (ABNORMAL) PTH, Intact (03/28/2025 12:10 PM EDT) Parathyroid Hormone, Intact 106.6(H) 8.7 - 77.1 pg/mL See order comments 03/28/2025 12:1 0 PM EDT 03/28/2025 12:10 PM EDT us Neo Rollins MD LAB [id number] SOLICITED RESULTS Final Result Performing Organization Address [facility] de Phone Number [place] See order comments [place] [address] * (ABNORMAL) Vitamin D 25 Hydroxy (03/28/2025 [...] Final Re sult Performing Organization Address [facility] Co de Phone Number [place] See order comments [place] [address] * (ABNORMAL) CBC and Differential (03/28/2025 12:10 [...] order comments [place] [address] * (ABNORMAL) BUN (03/28/2025 12:10 PM EDT) BUN 53(H) 9 - 16 mg/dL See order comments 03/28/2025 12:1 0 PM EDT 03/28/2025 12:10 PM EDT us Neo Rollins MD LAB BLOOD ORDERABLES Final Re sult Performing Organization Address [facility] de Phone Number [place] See order comments [place] [address] * Phosphorus (03/28/2025 12:10 PM EDT) Phosphorus, Serum 2.7 2.7 - 4.5 mg/dL See order comments Blood specimen (specimen) Venous blood / Unknown 03/28/2025 12:10 PM EDT 03/28/2025 12:10 PM EDT us Neo Rollins MD LAB BLOOD ORDERABLES Final Re sult Performing Organization Address [facility] Phone Number [place] See order comments [place] [address] * Magnesium (03/28/2025 12:10 PM EDT) Magnesium 1.6 1.6 - 2.6 mg/dL See order comments Blood specimen (specimen) Venous blood / Unknown 03/28/2025 12:10 PM EDT 03/28/2025 12:10 PM EDT us Neo Rollins MD LAB BLOOD ORDERABLES Final Re sult Performing Organization Address [facility] Phone Number [place] See order comments [place] [address] * Calcium (03/28/2025 12:10 PM EDT) Calcium 9.6 8.4 - 10.2 mg/dL See order comments Blood specimen (specimen) Venous blood / Unknown 03/28/2025 12:10 PM EDT 03/28/2025 12:10 PM EDT us Neo Rollins MD LAB BLOOD ORDERABLES Final Re sult Performing Organization Address [facility]/State/ZIP Co de Phone Number [place] See order comments [place] [address] * Albumin (03/28/2025 12:10 PM EDT) Pathologist [facility] Albumin 3.5 3.5 - 5.0 g/dL See order comments Blood specimen (specimen) Venous blood / Unknown 03/28/2025 12:10 PM EDT 03/28/2025 12:10 PM EDT Neo Rollins MD LAB BLOOD ORDERABLES Final Re sult Performing Organization Address [facility] de Phone Number [place] See order comments [place] [address] * Electrolyte panel (03/28/2025 12:10 PM EDT) Pathologist [facility] Sodium 143 135 - 145 mmol/L See [...] Final Re sult Performing Organization Address [facility] de Phone Number [place] See order comments [place] [address] * Hemoglobin A1c (04/18/2019 10:34 AM EDT) Pathologist [facility] Hemoglobin A1C 7.0 % [place] Comment: Hemoglobin A1C Reference Range Adults: 4.8 - 6.0 % Non diabetic: < 6.0 % Goal: < 7.0 % Additional Action Suggested: > 8.0 % Note: Hemoglobin A1c results are invalid for patients with abnormal amounts of HbF. Blood transfusions may impact the HbA1c concentration in the patient sample. Estimated Average Glucose 154 MG/DL [facility] Comment: eAG = Estimated average glucose which is %A1C expressed as average glucose, using the formula of the X7E-Guaoqxl Average Glucose study (ADAG), Diabetes Care, Vol.31,#8, 2007 04/18/2019 10:3 4 AM EDT Christopher Zamudio MD LAB BLOOD ORDERABLES Final Resu lt [place] from Last 3 Months or Most Recently Relevant to Health Maintenance Insurance [facility] Medicare Medicaid [place] Medicare [facility] Medicaid [place] Care Teams Tree Thinner Relationship Specialty Start Date End Date Christopher Zamudio MD [address] [place], [place] PCP - General 09/02/20
== END 2025-04-25 11:07 | disposition home or self-care (01) ==
LOC: HO.LAB 11:06
PROVIDERS: Visit Provider Internal Medicine Medical Oncology
DX: D64.9 Anemia, unspecified (principal)
CPT/HCPCS: 36415; 85025

== ENCOUNTER 2025-05-09 11:22 | Outpatient (REF) | payer MEDICARE, SELFPAY ==
[2025-05-09 11:35] LABS: MANUAL DIFF FLAG NO
[2025-05-09 12:13] LABS: Hematocrit 32.0 % (37.0-47.0); Hemoglobin 10.3 g/dl (12.0-16.0); Imm Gran Abs Auto 0.04 X10*3/uL (0.00-0.03); Imm Gran Pct Auto 0.5 % (0.0-0.4); Lymphocytes Absolute Auto 1.3 X10*3/uL (1.2-4.9); Mean Corpuscular HGB Conc 32.2 g/dl (31.0-35.0); Mean Corpuscular Hemoglobin 28.8 pg (27.0-33.0); Mean Corpuscular Volume 89.4 fL (80.0-98.0); NRBC Abs Auto 0.000 X10*3/uL (0.0-0.012); NRBC Pct Auto 0.0 /100WBC (0.0-0.2); Platelet Count 222 X10*3/uL (160-400); Red Blood Count 3.58 X10*6/uL (4.20-5.50); White Blood Count 7.4 X10*3/uL (4.8-10.8)
--- OUTSIDE RECORDS SUMMARY | 2025-05-09 14:45 | XMS_ITS | Patient Health Record ---
Author Organization [facility] Address [address] [place] [address] Care Team Providers Care School Physical Therapist Name Role Phone PriceWilber [phone] Reason For Referral No Information Plan Of Treatment No Information
--- OUTSIDE RECORDS SUMMARY | 2025-05-09 14:45 | XMS_ITS | Clinical Summary ---
Author Organization [employer] Address [address] [place] [address] 7[address] [place] [address] Care Team Providers Care Kettle Tender Name Role Phone Unavailable Primary Care Provider [...] or Tdap) 02/02/2022 02/03/2012, 01/21/2001 COVID-19 Vaccine (2024-2 6 season) 2025 10/22/2020, 09/23/2020 Influenza Vaccine (#1) 2025 HIB [...]
--- OUTSIDE RECORDS SUMMARY | 2025-05-09 14:45 | XMS_ITS | Clinical Summary ---
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 Active hydrALAZINE 25 MG tablet TAKE 1 TABLET(25 MG) BY MOUTH IN THE MORNING AND IN THE EVENING 180 tablet 5 Active Additional Information Patient taking differently: 2 times daily, Morning, Evening, Reported on 04/03/2025 dilTIAZem CD (CARDIZEM CD) 120 MG 24 hr capsule TAKE 1 CAPSULE BY MOUTH DAILY. STOP METOPROLOL -. CONTINUE DILTIAZEM CD 120 MG DAILY 5 Active Active Problems Problem Noted Date Diagnosed [...] Overview (09/16/2022): [facility]. History of malignant basal cell neoplasm of skin 01/27/2019 Overview (09/16/2022): lip Encounters Date Type Department Care Team Description 04/03/2025 1:30 PM EDT [facility] Visit [facility] [address] [address] Neo Rollins MD Chronic kidney disease, stage 4 (severe) (HCC) (Primary Dx); Type 2 diabetes mellitus with diabetic chronic kidney disease (HCC); Renal disorder due to type 2 diabetes mellitus <Diabetic nephropathy> (HCC); Anemia in chronic kidney disease 04/02/2025 Refill [facility] [address] [address] Neo Rollins MD 03/28/2025 Orders Only [facility] [address] [address] Neo Rollins MD 02/23/2025 Orders Only [facility] [address] [address] Neo Rollins MD Chronic kidney disease, stage [...] Office Visit [facility] [address] [address] Neo Rollins MD [address] [address] Health Maintenance Due Date Last [...] Final Re sult Performing Organization Address [facility] de Phone Number [place] See order comments [place] [address] * (ABNORMAL) Albumin, urine, random (03/28/2025 12:51 [...] Rollins MD LAB URINE ORDERABLES Final Re [facility] Performing Organization Address [facility] de Phone Number [place] See order comments [place] [address] * (ABNORMAL) Urinalysis with microscopic (03/28/2025 12:51 PM EDT) Color Urine Yellow See orde r comments Appearance Urine Clear See order comments pH Urine 6.5 5.0 - 9.0 See order comments Glucose Urine Negative Negative mg/dL See order comments Blood, Urine Negative Negative See ord er comments Specific [place] Urine 1.010 1.005 - 1.025 See order [...] Final Re sult Performing Organization Address [facility] Co de Phone Number [place] See order comments [place] [address] * (ABNORMAL) Creatinine (03/28/2025 12:10 PM EDT) [...] Final Re sult Performing Organization Address [facility] Co de Phone Number [place] See order comments [place] [address] * (ABNORMAL) PTH, Intact (03/28/2025 12:10 PM EDT) Parathyroid Hormone, Intact 106.6(H) 8.7 - 77.1 pg/mL See order comments 03/28/2025 12:1 0 PM EDT 03/28/2025 12:10 PM EDT us Neo Rollins MD LAB [id number] SOLICITED RESULTS Final Result Performing Organization Address [facility] Co de Phone Number [place] See order comments [place] [address] * (ABNORMAL) Vitamin D 25 Hydroxy (03/28/2025 [...] order comments [place] [address] * (ABNORMAL) CBC and Differential (03/28/2025 12:10 [...] order comments [place] [address] * (ABNORMAL) BUN (03/28/2025 12:10 PM EDT) BUN 53(H) 9 - 16 mg/dL See order comments 03/28/2025 12:1 0 PM EDT 03/28/2025 12:10 PM EDT us Neo Rollins MD LAB BLOOD ORDERABLES Final Re sult Performing Organization Address [facility] Co de Phone Number [place] See order comments [place] [address] * Phosphorus (03/28/2025 12:10 PM EDT) Phosphorus, Serum 2.7 2.7 - 4.5 mg/dL See order comments Blood specimen (specimen) Venous blood / Unknown 03/28/2025 12:10 PM EDT 03/28/2025 12:10 PM EDT us Neo Rollins MD LAB BLOOD ORDERABLES Final Re sult Performing Organization Address [facility] de Phone Number [place] See order comments [place] [address] * Magnesium (03/28/2025 12:10 PM EDT) Magnesium 1.6 1.6 - 2.6 mg/dL See order comments Blood specimen (specimen) Venous blood / Unknown 03/28/2025 12:10 PM EDT 03/28/2025 12:10 PM EDT us Neo Rollins MD LAB BLOOD ORDERABLES Final Re sult Performing Organization Address [facility] de Phone Number [place] See order comments [place] [address] * Calcium (03/28/2025 12:10 PM EDT) Calcium 9.6 8.4 - 10.2 mg/dL See order comments Blood specimen (specimen) Venous blood / Unknown 03/28/2025 12:10 PM EDT 03/28/2025 12:10 PM EDT us Neo Rollins MD LAB BLOOD ORDERABLES Final Re sult Performing Organization Address [facility] Co de Phone Number [place] See order comments [place] [address] * Albumin (03/28/2025 12:10 PM EDT) Albumin 3.5 3.5 - 5.0 g/dL See order comments Blood specimen (specimen) Venous blood / Unknown 03/28/2025 12:10 PM EDT 03/28/2025 12:10 PM EDT Neo Rollins MD LAB BLOOD ORDERABLES Final Re sult Performing Organization Address [facility] Co de Phone Number [facility] See order comments [place] [address] * Electrolyte panel (03/28/2025 12:10 PM EDT) Sodium 143 135 - 145 mmol/L See [...] Final Re sult Performing Organization Address [facility] de Phone Number See order comments [place] [address] * Hemoglobin A1c (04/18/2019 10:34 AM EDT) [...] average glucose, using the formula of the U1C-Lznoyhs Average Glucose study (ADAG), Diabetes Care, Vol.31,#8, Mar. 2007 04/18/2019 10:3 4 AM EDT Christopher Zamudio MD LAB BLOOD ORDERABLES Final Resu lt [place] from Last 3 Months or Most Recently Relevant to Health Maintenance Insurance [facility] Medicare Medicaid [place] Medicare [facility] Medicaid [place] Care Teams Pump House Operator Relationship Specialty Start Date End Date Christopher Zamudio MD [address] [place] [address] PCP - General 09/02/20
--- OUTSIDE RECORDS SUMMARY | 2025-05-09 14:46 | XMS_ITS | Clinical Summary ---
Author Organization [facility] Address [address] [place] [address] Phone Care Team Providers Care Leather Sprayer Name Role Phone Unknown, Unknown Primary Care [...] MEDEX SUPPLEMENT MEDICARE PART A & B [facility] FULL MEDEX SUPPLEMENT MEDICARE PART A & B HEALTH SAFETY NET FULL MEDEX SUPPLEMENT MEDICARE PART A & B HEALTH SAFET[employer] NET FULL [employer] MEDEX SUPPLEMENT MEDICARE PART A & B [facility] FULL [employer] MEDEX SUPPLEMENT MEDICARE PART A & B [facility] FULL MEDEX SUPPLEMENT MEDICARE PART A & B [employer] NET FULL MEDEX SUPPLEMENT MEDICARE PART A & B [employer] NET FULL [employer] MEDEX SUPPLEMENT MEDICARE PART A & B [facility] FULL [employer] MEDEX SUPPLEMENT MEDICARE PART A & B [facility] FULL Care Teams Leather Sprayer Relationship Specialty Start Date End Date Unknown, Unknown, PCP - General 12/21/18 Additional Source Comments The information contained in this document represents components of the legal health record. It is not the complete legal health record.[facility]
== END 2025-05-09 11:23 | disposition home or self-care (01) ==
LOC: HO.LAB 11:22
PROVIDERS: Visit Provider Internal Medicine Medical Oncology
DX: D64.9 Anemia, unspecified (principal)
CPT/HCPCS: 36415; 85025

== ENCOUNTER 2025-05-23 11:34 | Outpatient (REF) | payer MEDICARE, SELFPAY ==
[2025-05-23 12:00] LABS: MANUAL DIFF FLAG NO
[2025-05-23 12:05] LABS: Hematocrit 30.8 % (37.0-47.0); Hemoglobin 10.2 g/dl (12.0-16.0); Imm Gran Abs Auto 0.02 X10*3/uL (0.00-0.03); Imm Gran Pct Auto 0.3 % (0.0-0.4); Lymphocytes Absolute Auto 1.4 X10*3/uL (1.2-4.9); Mean Corpuscular HGB Conc 33.1 g/dl (31.0-35.0); Mean Corpuscular Hemoglobin 28.8 pg (27.0-33.0); Mean Corpuscular Volume 87.0 fL (80.0-98.0); NRBC Abs Auto 0.000 X10*3/uL (0.0-0.012); NRBC Pct Auto 0.0 /100WBC (0.0-0.2); Platelet Count 246 X10*3/uL (160-400); Red Blood Count 3.54 X10*6/uL (4.20-5.50); White Blood Count 6.5 X10*3/uL (4.8-10.8)
--- OUTSIDE RECORDS SUMMARY | 2025-05-23 13:08 | XMS_ITS | Clinical Summary ---
Author Organization 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 Active dilTIAZem CD (CARDIZEM CD) 120 MG 24 hr capsule TAKE 1 CAPSULE BY MOUTH DAILY. STOP METOPROLOL -. CONTINUE DILTIAZEM CD 120 MG DAILY 01/09/20 25 Active hydrALAZINE 25 MG tablet Take 1 tablet (25 mg total) by mouth in the morning and 1 tablet (25 mg total) in the evening. 180 tablet 05/22/20 25 025 Active hydrALAZINE 25 MG tablet TAKE 1 TABLET(25 MG) BY MOUTH IN THE MORNING AND IN THE EVENING 180 tablet 04/02/20 25 025 Discontinued Active Problems Problem Noted Date [...] Overview (09/16/2022): [facility] at [facility]. History of malignant basal cell neoplasm of skin 01/27/2019 Overview (09/16/2022): lip Encounters Date Type Department Care Team Description 05/22/2025 Refill [facility] [address] [address] Neo Rollins MD 04/03/2025 1:30 PM EDT Office Visit [facility] [address] [address] Neo Rollins MD Chronic kidney disease, stage 4 (severe) (HCC) (Primary Dx); Type 2 diabetes mellitus with diabetic chronic kidney disease (HCC); Renal disorder due to type 2 diabetes mellitus <Diabetic nephropathy> (HCC); Anemia in chronic kidney disease 04/02/2025 Refill [facility] [address] [address] Neo Rollins MD 03/28/2025 Orders Only [facility] [address] [address] Neo Rollins MD 02/23/2025 Orders Only [facility] [address] [address] Neo Rollins MD Chronic kidney disease, stage [...] Office Visit [facility] [address] [phone] Neo Rollins MD [address] [address] Health Maintenance Due Date Last [...] ORDERABLES Final Re sult Performing Organization Address [facility] de Phone Number [place] See order comments [place] [address] * (ABNORMAL) Albumin, urine, random (03/28/2025 12:51 [...] ORDERABLES Final Re sult Performing Organization Address [facility] de Phone Number [place] See order comments [place] [address] * (ABNORMAL) Urinalysis with microscopic (03/28/2025 12:51 PM EDT) Color Urine Yellow See orde r comments Appearance Urine Clear See order comments pH Urine 6.5 5.0 - 9.0 See order comments Glucose Urine Negative Negative mg/dL See order comments Blood, Urine Negative Negative See ord er comments Specific [place] Urine 1.010 1.005 - 1.025 See order [...] ORDERABLES Final Re sult Performing Organization Address [facility] Co de Phone Number [place] See order comments [place] [address] * (ABNORMAL) Creatinine (03/28/2025 12:10 PM EDT) [...] order comments [place] [address] * (ABNORMAL) PTH, Intact (03/28/2025 12:10 PM EDT) Parathyroid Hormone, Intact 106.6(H) 8.7 - 77.1 pg/mL See order comments 03/28/2025 12:1 0 PM EDT 03/28/2025 12:10 PM EDT Neo Rollins MD LAB [id number] SOLICITED RESULTS Final Result Performing Organization Address [facility] Co de Phone Number [place] See order comments [place] [address] * (ABNORMAL) Vitamin D 25 Hydroxy (03/28/2025 [...] ORDERABLES Final Re sult Performing Organization Address [facility]/ZIP Co de Phone Number [place] See order comments [place] [address] * (ABNORMAL) CBC and Differential (03/28/2025 12:10 [...] order comments [place] [address] * (ABNORMAL) BUN (03/28/2025 12:10 PM EDT) BUN 53(H) 9 - 16 mg/dL See order comments 03/28/2025 12:1 0 PM EDT 03/28/2025 12:10 PM EDT us Neo Rollins MD LAB BLOOD ORDERABLES Final Re sult Performing Organization Address [facility] de Phone Number [place] See order comments [place] [address] * Phosphorus (03/28/2025 12:10 PM EDT) Phosphorus, Serum 2.7 2.7 - 4.5 mg/dL See order comments Blood specimen (specimen) Venous blood / Unknown 03/28/2025 12:10 PM EDT 03/28/2025 12:10 PM EDT us Neo Rollins MD LAB BLOOD ORDERABLES Final Re sult Performing Organization Address [facility] de Phone Number [facility] See order comments [place] [address] * Magnesium (03/28/2025 12:10 PM EDT) Magnesium 1.6 1.6 - 2.6 mg/dL See order comments Blood specimen (specimen) Venous blood / Unknown 03/28/2025 12:10 PM EDT 03/28/2025 12:10 PM EDT us Neo Rollins MD LAB BLOOD ORDERABLES Final Re sult Performing Organization Address [facility] de Phone Number [facility] See order comments [place] [address] * Calcium (03/28/2025 12:10 PM EDT) Calcium 9.6 8.4 - 10.2 mg/dL See order comments Blood specimen (specimen) Venous blood / Unknown 03/28/2025 12:10 PM EDT 03/28/2025 12:10 PM EDT us Neo Rollins MD LAB BLOOD ORDERABLES Final Re sult Performing Organization Address [facility] de Phone Number [place] See order comments [place] [address] * Albumin (03/28/2025 12:10 PM EDT) Albumin 3.5 3.5 - 5.0 g/dL See order comments Blood specimen (specimen) Venous blood / Unknown 03/28/2025 12:10 PM EDT 03/28/2025 12:10 PM EDT us Neo Rollins MD LAB BLOOD ORDERABLES Final Re sult Performing Organization Address [facility] Phone Number [place] See order comments [place] [address] * Electrolyte panel (03/28/2025 12:10 PM EDT) [...] ORDERABLES Final Re sult Performing Organization Address [facility] Phone Number [place] See order comments [place] [address] * Hemoglobin A1c (04/18/2019 10:34 AM EDT) [...] average glucose, using the formula of the Y9P-Xoawywy Average Glucose study (ADAG), Diabetes Care, Vol.31,#8, Mar. 2007 04/18/2019 10:3 4 AM EDT us Christopher Zamudio MD LAB BLOOD ORDERABLES Final Resu lt [place] from Last 3 Months or Most Recently Relevant to Health Maintenance Insurance JACEY [place]NON [id number] [facility] Medicare Medicaid [place] Medicare [facility] Medicaid [place] Care Teams Senior Water Resources Engineer Relationship Specialty Start Date End Date Christopher Zamudio MD [address] [place], [place] PCP - General 09/02/20
--- OUTSIDE RECORDS SUMMARY | 2025-05-23 13:08 | XMS_ITS | Clinical Summary ---
Author Organization [employer] Address [address] [place] [address] [address] [place] [address] Care Team Providers Care Drywall Hanger Framer Name Role Phone Unavailable Primary Care Provider [...]
--- OUTSIDE RECORDS SUMMARY | 2025-05-23 13:09 | XMS_ITS | Clinical Summary ---
Author Organization [facility] Address [address] [place] [address] Phone Care Team Providers Care Hydrometer Tester Name Role Phone Christopher Zamudio MD Primary Care Provider [phone] Surgical History Surgery Date Site/Laterality Comments CHOLECYSTECTOMY [...] (HCC); COMMENT: [facility]. History of cataract 10/17/2020 DX:History o f cataract Type 2 diabetes mellitus wit h cataract (CMS/HCC V24, CMS/HCC V28) 10/17/2020 DX:Type 2 diabetes mellitus with cataract ([facility]) Arrhythmia 10/17/2020 DX:Arrhythmia Family History [...] Value Date Recorded Sex Assigned at Female 05/07/2025 9:43 AM EDT Legal Sex Female 3:16 AM EST Gender Identity Female 05/07/2025 9:43 AM EDT Sexual Orientation Straight 05/07/2025 9: 43 AM EDT Obstetrics History Last Filed Vital Signs Vital [...] 11/18/2023 1:32 PM EDT Plan of Treatment Upcoming Encounters Date Type Department Care Team (Late st Contact Info) Description 07/24/2025 10:00 AM EST Treatment [facility] Occupational Therapy [address] [place] [phone] Hannah Haas P, OTR/L Health Maintenance Due Date Last Done Comments [...] (Lipid Panel) 07/26/2022 Falls Risk Assessment 07/26/2022 Medicare Annual Wellness Visit 07/26/2022 Osteoporosis Screening (Bone Density Screening) 07/26/2022 Social Influencers of Health Screening 07/26/2022 Diabetes: Blood Sugar Contro l Test (HGBA1C) 08/07/2022 04/18/2019 Hypertension/CHF/CAD Annual BMP Blood Test 08/07/2022 Depression Screening 08/23/2024 COVID-19 Vaccine (2024-2 6 season) 2025 10/22/2020, [...] on patient's age to complete this topic Insurance [place]IC[place] Advance Directives Documents on File Type Date Recorded Patient Butting Saw Operator Expl anation Health Care Decision (hx) 08/20/2023 AD العراقي DIRECTIVE Health Care Decision (hx) 08/20/2023 AD العراقي DIRECTIVE Care Teams Hydrometer Tester Relationship Specialty Start Date End Date Christopher Zamudio MD [address] [place] [id number] PCP - General 09/10/16
--- OUTSIDE RECORDS SUMMARY | 2025-05-23 13:09 | XMS_ITS | Clinical Summary ---
Author Organization [facility] Address [address] [place] [address] Phone Care Team Providers Care Power Truck Driver Name Role Phone Unknown, Unknown Primary Care [...] SUPPLEMENT MEDICARE PART A & B [facility] FULL MEDEX SUPPLEMENT MEDICARE PART A & B HEALTH SAFETY NET FULL MEDEX SUPPLEMENT MEDICARE PART A & B HEALTH SAFETY NET FULL [employer] MEDEX SUPPLEMENT MEDICARE PART A & B [facility] FULL [employer] MEDEX SUPPLEMENT MEDICARE PART A & B [facility] FULL MEDEX SUPPLEMENT MEDICARE PART A & B [employer] NET FULL MEDEX SUPPLEMENT MEDICARE PART A & B [employer] NET FULL [employer] MEDEX SUPPLEMENT MEDICARE PART A & B [facility] FULL [employer] MEDEX SUPPLEMENT MEDICARE PART A & B [facility] FULL Care Teams Power Truck Driver Relationship Specialty Start Date End Date Unknown, Unknown, PCP - General 12/21/18 Additional Source Comments The information contained in this document represents components of the legal health record. It is not the complete legal health record.[facility]
--- OUTSIDE RECORDS SUMMARY | 2025-05-23 13:09 | XMS_ITS | Encounter Summary ---
Author Organization [facility] Address [address] [place] [phone] Phone Care Team Providers Care Primary Health Organisation Manager Name Role Phone Christopher Zamudio MD Primary Care Provider [phone] Reason for Visit * Reason Comments Med Refill Encounter Details Date Type Department Care Team ([facility] Contact Info) Description 05/22/2025 Refill [facility] [address] [address] Neo Rollins MD [address] [place] [phone] Social History Tobacco Use Types Packs/Day [...] Department Care Team (Late Contact Info) Description 09/26/2025 2:45 PM EST Office Visit [facility] [place] [id number] [address] Neo Rollins MD [facility] [address] [phone] documented as of this encounter Visit Diagnoses Not on filedocumented in this encounter Care Teams Primary Health Organisation Manager Relationship Specialty Start Date End Date Christopher Zamudio MD [address] [place] PCP - General 09/02/20 documented as of this encounter
== END 2025-05-23 11:35 | disposition home or self-care (01) ==
LOC: HO.LAB 11:34
PROVIDERS: Visit Provider Internal Medicine Medical Oncology
DX: D64.9 Anemia, unspecified (principal)
CPT/HCPCS: 36415; 85025

== ENCOUNTER 2025-06-05 10:50 | Outpatient (REF) | payer MEDICARE, SELFPAY ==
[2025-06-05 11:15] LABS: MANUAL DIFF FLAG NO
[2025-06-05 11:18] LABS: Hematocrit 34.1 % (37.0-47.0); Hemoglobin 10.6 g/dl (12.0-16.0); Imm Gran Abs Auto 0.02 X10*3/uL (0.00-0.03); Imm Gran Pct Auto 0.3 % (0.0-0.4); Lymphocytes Absolute Auto 1.5 X10*3/uL (1.2-4.9); Mean Corpuscular HGB Conc 31.1 g/dl (31.0-35.0); Mean Corpuscular Hemoglobin 28.0 pg (27.0-33.0); Mean Corpuscular Volume 90.0 fL (80.0-98.0); NRBC Abs Auto 0.000 X10*3/uL (0.0-0.012); NRBC Pct Auto 0.0 /100WBC (0.0-0.2); Platelet Count 232 X10*3/uL (160-400); Red Blood Count 3.79 X10*6/uL (4.20-5.50); White Blood Count 6.7 X10*3/uL (4.8-10.8)
--- OUTSIDE RECORDS SUMMARY | 2025-06-05 12:57 | XMS_ITS | Clinical Summary ---
Author Organization [facility] Address [address] [place] [address] Phone Care Team Providers Care Jira Developer Name Role Phone Christopher Zamudio MD Primary Care Provider [phone] Surgical History Surgery Date Site/Laterality Comments CHOLECYSTECTOMY PROCEDURE: HISTORICAL CHOLECYSTECTOMY; COMMENT: 1981 LEG SURGERY 1985 PROCEDURE: HISTORICAL LEG SURGERY; COMMENT: Vein ablation APPENDECTOMY PROCEDURE: HISTORICAL APPENDECTOMY; COMMENT: 1981 OTHER SURGICAL HISTORY 08/18/2023 Right PROCEDURE: [place] INCISION BONE CORTEX FOOT; COMMENT: right, 5th metatarsal OTHER SURGICAL HISTORY 08/18/2023 Right PROCEDURE: [place] BIOPSY BONE OPEN SUPERFICIAL; COMMENT: right, 5th proximal phalanx OTHER SURGICAL HISTORY 08/18/2023 Right PROCEDURE: [place] SECONDARY CLOSURE SURG WOUND/DEHSN XTNSV/COMP Medical History [...] (HCC); COMMENT: [facility]. History of cataract 10/17/2020 DX:History o f cataract Type 2 diabetes mellitus wit h cataract (CMS/HCC V24, CMS/HCC V28) 10/17/2020 DX:Type 2 diabetes mellitus with cataract ([facility]) Arrhythmia 10/17/2020 DX:Arrhythmia Family History Medical History [...] Info) Description 07/24/2025 10:00 AM EST Treatment [facility] Occupational Therapy [address] [place] [phone] Hannah Haas P, OTR/L Health Maintenance [...] Documents on File Type Date Recorded Patient Etl Data Architect Expl anation Health Care Decision (hx) 08/20/2023 AD العراقي DIRECTIVE Health Care Decision (hx) 08/20/2023 AD العراقي DIRECTIVE Care Teams Jira Developer Relationship Specialty Start Date End Date Christopher Zamudio MD [address] [place] [address] PCP - General 09/10/16
--- OUTSIDE RECORDS SUMMARY | 2025-06-05 12:57 | XMS_ITS | Clinical Summary ---
Author Organization [facility] Address [address] [place] [phone] Phone Care Team Providers Care Amusement Park Ride Mechanic Name Role Phone Christopher Zamudio MD Primary Care Provider [phone] Allergies Active Allergy Reactions Criticality Noted Date [...] taking.Reported on 04/03/2025 epoetin jayna (EPOGEN,PROCRI T) 79254 UNIT/ML injectionIndic ations:Anemia due to Renal Failure [...] Overview (09/16/2022): [facility] at [facility]. History of malignant basal cell neoplasm of skin 01/27/2019 Overview (09/16/2022): lip Encounters Date Type Department Care Team Description 05/22/2025 Refill [facility] [address] [address] Neo Rollins MD 04/03/2025 1:30 PM EDT Office Visit [facility] [address] [address] Neo Rollins MD Chronic kidney disease, stage 4 (severe) (HCC) (Primary Dx); Type 2 diabetes mellitus with diabetic chronic kidney disease (HCC); Renal disorder due to type 2 diabetes mellitus <Diabetic nephropathy> (HCC); Anemia in chronic kidney disease 04/02/2025 Refill [facility] [address] [address] Neo Rollins MD 03/28/2025 Orders Only [facility] [address] [address] Neo Rollins MD from Last 3 Months [...] Office Visit [facility] [address] [address] Neo Rollins MD [address] [address] Health Maintenance Due Date Last [...] Neo Rollins MD LAB URINE ORDERABLES Final [facility] Performing Organization Address [facility] de Phone Number [place] See order comments [place] [address] * (ABNORMAL) Albumin, urine, random (03/28/2025 12:51 [...] Neo Rollins MD LAB URINE ORDERABLES Final [facility] Performing Organization Address [facility] de Phone Number [place] See order comments [place] [address] * (ABNORMAL) Urinalysis with microscopic (03/28/2025 12:51 PM EDT) Color Urine Yellow See orde r comments Appearance Urine Clear See order comments pH Urine 6.5 5.0 - 9.0 See order comments Glucose Urine Negative Negative mg/dL See order comments Blood, Urine Negative Negative See ord er comments Specific [place] Urine 1.010 1.005 - 1.025 See order [...] ORDERABLES Final Re sult Performing Organization Address [facility] Co de Phone Number [facility] See order comments [place] [address] * (ABNORMAL) Creatinine (03/28/2025 12:10 PM EDT) Creatinine Serum 2.46(H) 0.5 - 1.4 mg/dL See order comments eGFR (Calc) 18 See orde r comments Comment: Chronic Kidney Disease: Estimated GFR < 60 mL/min/1.73m2 Severe Kidney Disease: Estimated GFR < 15 mL/min/1.73m2 03/28/2025 12:1 0 PM EDT 03/28/2025 12:10 PM EDT us Neo Rollins MD LAB BLOOD ORDERABLES Final Re sult Performing Organization Address [facility] de Phone Number [place] See order comments [place] [address] * (ABNORMAL) PTH, Intact (03/28/2025 12:10 PM EDT) Parathyroid Hormone, Intact 106.6(H) 8.7 - 77.1 pg/mL See order comments 03/28/2025 12:1 0 PM EDT 03/28/2025 12:10 PM EDT us Neo Rollins MD LAB SPROYICNDE-[id number] SOLICITED RESULTS Final Result Performing Organization Address [facility] Co de Phone Number [place] See order comments [place] [address] * (ABNORMAL) Vitamin D 25 Hydroxy (03/28/2025 [...] order comments [place] [address] * (ABNORMAL) CBC and Differential (03/28/2025 12:10 [...] order comments [place] [address] * (ABNORMAL) BUN (03/28/2025 12:10 PM EDT) BUN 53(H) 9 - 16 mg/dL See order comments 03/28/2025 12:1 0 PM EDT 03/28/2025 12:10 PM EDT us Neo Rollins MD LAB BLOOD ORDERABLES Final Re sult Performing Organization Address [facility] Phone Number [place] See order comments [place] [address] * Phosphorus (03/28/2025 12:10 PM EDT) Phosphorus, Serum 2.7 2.7 - 4.5 mg/dL See order comments Blood specimen (specimen) Venous blood / Unknown 03/28/2025 12:10 PM EDT 03/28/2025 12:10 PM EDT us Neo Rollins MD LAB BLOOD ORDERABLES Final Re sult Performing Organization Address [facility] Phone Number [place] See order comments [place] [address] * Magnesium (03/28/2025 12:10 PM EDT) Magnesium 1.6 1.6 - 2.6 mg/dL See order comments Blood specimen (specimen) Venous blood / Unknown 03/28/2025 12:10 PM EDT 03/28/2025 12:10 PM EDT us Neo Rollins MD LAB BLOOD ORDERABLES Final Re sult Performing Organization Address [facility] Phone Number [place] See order comments [place] [address] * Calcium (03/28/2025 12:10 PM EDT) Calcium 9.6 8.4 - 10.2 mg/dL See order comments Blood specimen (specimen) Venous blood / Unknown 03/28/2025 12:10 PM EDT 03/28/2025 12:10 PM EDT us Neo Rollins MD LAB BLOOD ORDERABLES Final Re sult Performing Organization Address [facility] de Phone Number [place] See order comments [place] [address] * Albumin (03/28/2025 12:10 PM EDT) Albumin 3.5 3.5 - 5.0 g/dL See order comments Blood specimen (specimen) Venous blood / Unknown 03/28/2025 12:10 PM EDT 03/28/2025 12:10 PM EDT Neo Rollins MD LAB BLOOD ORDERABLES Final Re sult Performing Organization Address [facility] Co de Phone Number [place] See order comments [place] [address] * Electrolyte panel (03/28/2025 12:10 PM EDT) [...] ORDERABLES Final Re sult Performing Organization Address [facility] de Phone Number [facility] See order comments [place] [address] * Hemoglobin A1c (04/18/2019 10:34 AM EDT) [...] average glucose, using the formula of the [id number] Average Glucose study (ADAG), Diabetes Care, Vol.31,#8, Mar. 2007 04/18/2019 10:3 4 AM EDT Christopher Zamudio MD LAB BLOOD ORDERABLES Final Resu lt [place] from Last 3 Months or Most Recently Relevant to Health Maintenance Insurance [facility] Medicare Medicaid [place] Medicare [facility] [place] Care Teams Amusement Park Ride Mechanic Relationship Specialty Start Date End Date Christopher Zamudio MD [address] [place] [address] PCP - General 09/02/20
--- OUTSIDE RECORDS SUMMARY | 2025-06-05 12:57 | XMS_ITS | Clinical Summary ---
Author Organization [facility] Address [address] [place] [phone] Phone Care Team Providers Care Instant Print Operator Name Role Phone Unknown, Unknown Primary Care [...] MEDEX SUPPLEMENT MEDICARE PART A & B [facility] FULL MEDEX SUPPLEMENT MEDICARE PART A & B [employer] FULL MEDEX SUPPLEMENT MEDICARE PART A & B [employer] NET FULL [employer] MEDEX SUPPLEMENT MEDICARE PART A & B [facility] FULL [employer] MEDEX SUPPLEMENT MEDICARE PART A & B [facility] FULL MEDEX SUPPLEMENT MEDICARE PART A & B [employer] NET FULL MEDEX SUPPLEMENT MEDICARE PART A & B [employer] NET FULL [employer] MEDEX SUPPLEMENT MEDICARE PART A & B [facility] FULL [employer] [place] MEDEX SUPPLEMENT MEDICARE PART A & B [facility] FULL Care Teams Instant Print Operator Relationship Specialty Start Date End Date Unknown, Unknown, PCP - General 12/21/18 Additional Source Comments The information contained in this document represents components of the legal health record. It is not the complete legal health record.[facility]
--- OUTSIDE RECORDS SUMMARY | 2025-06-05 12:57 | XMS_ITS | Patient Health Record ---
Author Organization [facility] Address [address] [place] [phone] Care Team Providers Care Glass Crusher Name Role Phone Price Wilber Aubrey [phone] Reason For Referral No Information Plan Of Treatment No Information
--- OUTSIDE RECORDS SUMMARY | 2025-06-05 12:57 | XMS_ITS | Clinical Summary ---
Author Organization [employer] Address [address] [place] [address] [address] [place] [address] Care Team Providers Care Outbound Call Center Representative Name Role Phone Unavailable Primary Care Provider [...]
== END 2025-06-05 10:51 | disposition home or self-care (01) ==
LOC: HO.LAB 10:50
PROVIDERS: Visit Provider Internal Medicine Medical Oncology
DX: D64.9 Anemia, unspecified (principal)
CPT/HCPCS: 36415; 85025

== ENCOUNTER 2025-06-12 14:12 | Outpatient (AMB) | payer MEDICARE, SELFPAY ==
--- NOTE | 2025-06-12 14:23 | A.OFFVIS_ITS ---
Vital Signs 3 06/12/25 14:27 Height 5 ft 5 in BMI Reason not done Patient refused/unable BP 140/78 H Blood Pressure Location Rt brachial Position Sitting Pulse 68 Pulse Source Pulse Oximeter Pulse Oximetry (%) 96 Oxygen Delivery Method Room Air Intake Visit Reasons: DM Intake Note: NEW Patient presents today to establish treatment for Type 2 Diabetes Mellitus: Last Diabetic eye exam was on: 07/25/24, [facility] Last Podiatry exam was on: Patient does not see a Tire Design Engineer Most recent HbA1c: 6.2%, 04/11/2025 Random Glucose: 150 mg/dL L Research Coordinator Required: No Accompanied by: Self / Same As Patient Allergies codeine (CODEINE) Allergy (Intermediate, Verified 06/12/25 14:25) BACK PAIN pollen extracts (POLLEN) Allergy (Mild, Verified 06/12/25 14:25) SINUS IRRITATION metoprolol Adverse Reaction (Intermediate, Verified 06/12/25 14:25) Hallucinations HPI Comments Details: 89 years old female with past medical history of type 2 diabetes, vitamin-D deficiency, CKD stage 4, heart failure, cardiomyopathy, atrial fibrillation, seen in the office for evaluation and management of type 2 diabetes. The patient was diagnosed with Type 2 Diabetes Mellitus at the age of 56. She is currently 89 years old. Initially started treatment with Metformin but transitioned to insulin due to kidney issues. Currently on 70/30 Humulin insulin twice a day with a sliding scale at night (5 to 25 units). A1c is currently at 6.2%, which is considered overly controlled for her age, although this is likely an underestimation given that the patient have anemia secondary to CKD She experiences blood glucose spikes to 200-300 mg/dL after eating but does not frequently experience hypoglycemia. Complications include kidney disease and a history of Charcot foot due to diabetes. Current Medications: - 70/30 Humulin insulin twice daily with a sliding scale at night. - Previously on Metformin but discontinued due to kidney issues. Blood Sugar monitoring: - Blood glucose is checked twice daily with current meter limitations. - Recent blood glucose levels mentioned: 121 mg/dL in the morning, 250 mg/dL post-meal. Hypoglycemia: - No recent incidences of hypoglycemia noted. - Uses orange juice for management if necessary. Macrovascular/microvascular Complications: No history of CVA, [place] or PVD Patient has history of CKD stage 4, denies history of neuropathy or retinopathy Diet and Exercise: - No specific diet or exercise routine noted in the conversation. Specialist Visits: - Regular follow-ups with a bag worker for atrial fibrillation. - History of podiatric issues with a recent surgery involving a titanium erick. Physical exam General: Well appearing. NAD. Sitting in the wheelchair Neck/Thyroid: Thyroid not palpable, no nodules. CV: RRR, no murmur. Edema present in both lower extremities Resp:Lungs clear to auscultation bilaterally Abdomen: Soft, nontender. nondistended Extremities/Neuro: No tremor of outstretched hands. Charcot foot deformity of right foot Labs Laboratory Tests 04/11/25 06/05/25 06/12/25 11:40 11:09 14:38 WBC 6.7 Hgb 10.6 L Sodium 143 Potassium 4.2 Creatinine 2.23 H Estimated GFR 21 Glucose (Clinic) 150 H Hemoglobin A1c % 6.2 H Calcium 9.4 Albumin 3.6 HDL Cholesterol 40 L 25-OH Vitamin D Total 26.8 L TSH 1.25 CGM data Interpretation: Nocturnal hyperglycemia, we had no evidence of episode of hypoglycemia. Average blood glucose 205 PFSH Medical History Lymphedema Diabetes mellitus BARB (acute kidney injury) Diabetes mellitus with coincident hypertension Hyperlipidemia CKD (chronic kidney disease) stage 4, GFR 15-29 ml/min Atrial fibrillation Osteomyelitis Gout Anemia Hx of type A viral hepatitis Obesity Surgical History History of foot surgery History of surgical removal of skin lesion History of biopsy History of excision of lesion H/O varicose vein ligation History of cholecystectomy Family History Father Gastric cancer Mother Acute CVA (cerebrovascular accident) Diabetes Brother Colon cancer Social History Household Members: Family Household Members Other:: sonvivek Housing: House Do you presently have visiting nurse or other home services: No Alcohol intake: never Patient Tobacco Use Status: Never used Tobacco e-Cigarette/Vaping Use: Never Used Second Hand Smoke Exposure: No Advance Directives Date on File: 07/16/21 service: No Current occupational status: retired Cognitive needs: Yes (walker ) Hearing needs: No Vision needs: Yes Physical Exam Vital Signs: Last Vital Signs Pulse 68 06/12/25 14:27 BP 140/78 H 06/12/25 14:27 Pulse Ox 96 06/12/25 14:27 Oxygen Delivery Method Room Air 06/12/25 14:27 Office Procedures Glucose Monitoring Details Details: See HPI 91051 - Glucose Monitoring, continuous Procedure code (CPT) selection complete Results Reviewed Results Reviewed: Laboratory Last Values Glucose (Clinic) 150 mg/dL (60-115) H 06/12/25 14:38 Assessment & Plan Assessment & Plan (1) Diabetes mellitus: Code(s): E11.9 - Type 2 diabetes mellitus without complications Category: Medical Qualifiers: Diabetes mellitus complication status: with other specified complication Diabetes mellitus long-term insulin use: without long term care pharmacist use Diabetes mellitus type: type 2 Qualified Code(s): E11.69 - Type 2 diabetes mellitus with other specified complication Plan: Elderly female patient with type 2 diabetes, have been for many years on mixed insulin, which increases her risk for hypoglycemia. Current glycaemic control is difficult to assess as patient has anemia of chronic disease, with rends her A1c of 6.2% not reliable. After a long discussion of pros and cons, patient agreed to transition to a different type of insulin. Given all main concern for hypoglycemia, we will also able to I agreed that the patient could use a CGM. After discuss pros and cons, patient agreed that we should aim for a goal A1c of 7-8%. Plan - Transition from 70/30 Humulin to a regimen involving Lantus 20 units daily in the morning - Initiate Jardiance 10 mg in the morning for kidney protection and glucose control. - Consider Ozempic if further intervention is needed. - discuss possible need for short-acting insulin if blood sugars remain elevated - Continue regular blood sugar monitoring and encourage the use of a continuous glucose monitor (CGM) for better management. - Educate patient and caregiver on hypo- and hyperglycemia management. - Reinforce the importance of regular foot checks and follow-up with specialists. - For hypoglycemia (<70 mg/dL): Consume 15g of carbohydrates and recheck in 15 minutes. - For hyperglycemia (>250 mg/dL): Monitor closely, hydrate, and contact the provider if symptoms like nausea or rapid breathing occur. - Educate on the new insulin regimen and ensure understanding of the importance of not skipping doses. - Encourage the patient to have regular follow-ups and notify the provider if any issues arise with the new treatment plan. Orders: Orders 2 AMB Glucose Monitoring Today E11.9 - Type 2 diabetes mellitus without complications, Z79.4 - long term care social worker (current) use of insulin Medications: New 2 empagliflozin (Jardiance) 10 mg PO DAILY 30 tabs 0RF blood-glucose sensor (FreeStyle Jr 3 Sensor device) To measure BG 4-6 times per day 2 ea 3RF E11.69 - Type 2 diabetes mellitus with other specified complication blood-glucose,cabinet finisher,cont (FreeStyle Jr 3 [place]) As directed 1 ea 0RF E11.69 - Type 2 diabetes mellitus with other specified complication insulin glargine (Lantus Solostar U-100 Insulin) Take Lantus 20 units daily in the morning 20 units (0.2 mL) subcut QAM 15 mL 3RF Discontinued 2 insulin NPH and regular human 100 unit/mL (70-30) (Humulin 70/30 U-100 KwikPen) patient noted she uses sliding scale based on her sugars, could not confirm ranges Discontinued Reason: Doctor's Order 20 units (0.2 mL) subcut BID 15 mL 3RF Patient Instructions: Stop taking the 70/30 insulin Take Lantus 20 units in the AM. If your BG is below 75, please reduce your Lantus by 4 units and let us know Take Jardiance 10 mg daily Check your BG 4-6 times per day For hypoglycemia (<70 mg/dL): Consume 15g of carbohydrates and recheck in 15 minutes. For hyperglycemia (>250 mg/dL): Monitor closely, hydrate, and contact the provider if symptoms like nausea or rapid breathing occur. Educate on the new insulin regimen and ensure understanding of the importance of not skipping doses. Coding Level of Care Code New Pt Level 5 (88873) Diagnoses Type 2 diabetes mellitus with other specified complication, without long-term current use of insulin E11.69 Diabetes mellitus complication status: with other specified complication Diabetes mellitus long term care pharmacist insulin use: without long term care pharmacist use Diabetes mellitus type: type 2 CPT Codes Details - CPT: 20403 - Glucose Monitoring, continuous ([id number]) Time Spent (min) 65 Comment Time spent reviewing previous records, labs, imaging, provider notes; and education
[2025-06-12 14:27] VITALS: BP 140/78; PULSE 68; O2SAT 96
[2025-06-12 14:43] LABS: Glucose, Whole Blood 150 mg/dL (60-115)
--- OUTSIDE RECORDS SUMMARY | 2025-06-12 19:10 | XMS_ITS | Clinical Summary ---
Author Organization [employer] Address [address] [place] [address] [address] [place] [address] Care Team Providers Care Toe Stripper Name Role Phone Unavailable Primary Care Provider [...]
--- OUTSIDE RECORDS SUMMARY | 2025-06-12 19:11 | XMS_ITS | Patient Health Record ---
Author Organization [facility] Address [address] [place] [phone] Care Team Providers Care Barrel Roller Name Role Phone Price Wilber Aubrey [phone] Reason For Referral No Information Plan Of Treatment No Information
--- OUTSIDE RECORDS SUMMARY | 2025-06-12 19:11 | XMS_ITS | Clinical Summary ---
Author Organization [facility] Address [address] [place] [address] Phone Care Team Providers Care Bean Roaster Name Role Phone Christopher Zamudio MD Primary Care Provider [phone] Surgical History Surgery Date Site/Laterality Comments CHOLECYSTECTOMY PROCEDURE: HISTORICAL CHOLECYSTECTOMY; COMMENT: 1981 LEG SURGERY 1985 PROCEDURE: HISTORICAL LEG SURGERY; COMMENT: Vein ablation APPENDECTOMY PROCEDURE: HISTORICAL APPENDECTOMY; COMMENT: 1981 OTHER SURGICAL HISTORY 08/18/2023 Right PROCEDURE: CA INCISION BONE CORTEX FOOT; COMMENT: right, 5th metatarsal OTHER SURGICAL HISTORY 08/18/2023 Right PROCEDURE: CA BIOPSY BONE OPEN SUPERFICIAL; COMMENT: right, 5th proximal phalanx OTHER SURGICAL HISTORY 08/18/2023 Right PROCEDURE: CA SECONDARY CLOSURE SURG WOUND/DEHSN XTNSV/COMP Medical History [...] (HCC); COMMENT: [facility] at [facility]. History of cataract 10/17/2020 DX:History o f cataract Type 2 diabetes mellitus wit h cataract (CMS/HCC V24, CMS/HCC V28) 10/17/2020 DX:Type 2 diabetes mellitus with cataract ([facility]) Arrhythmia 10/17/2020 DX:Arrhythmia Family History Medical History [...] Info) Description 07/24/2025 10:00 AM EST Treatment [facility]ational Therapy [address] [place] [phone] Hannah Haas P, OTR/L Health Maintenance [...] Documents on File Type Date Recorded Patient Foam Rubber Fabricator Expl anation Health Care Decision (hx) 08/20/2023 AD العراقي DIRECTIVE Health Care Decision (hx) 08/20/2023 AD العراقي DIRECTIVE Care Teams Bean Roaster Relationship Specialty Start Date End Date Christopher Zamudio MD [address] [place] [id number] PCP - General 09/10/16
--- OUTSIDE RECORDS SUMMARY | 2025-06-12 19:11 | XMS_ITS | Clinical Summary ---
Author Organization [facility] Address [address] [place] [phone] Phone Care Team Providers Care Heel Finisher Name Role Phone Unknown, Unknown Primary Care [...] MEDICARE PART A & B [facility] FULL MEDEX SUPPLEMENT MEDICARE PART A & B [employer]ALTH [employer]AFET[employer] NET FULL MEDEX SUPPLEMENT MEDICARE PART A & B HEALTH SAFETY NET FULL [employer] MEDEX SUPPLEMENT MEDICARE PART A & B [facility] FULL [employer] MEDEX SUPPLEMENT MEDICARE PART A & B [facility] FULL MEDEX SUPPLEMENT MEDICARE PART A & B [employer] NET FULL MEDEX SUPPLEMENT MEDICARE PART A & B [employer] NET FULL [employer] MEDEX SUPPLEMENT MEDICARE PART A & B [facility] FULL [employer] [place] MEDEX SUPPLEMENT MEDICARE PART A & B [facility] FULL Care Teams Heel Finisher Relationship Specialty Start Date End Date Unknown, Unknown, PCP - General 12/21/18 Additional Source Comments The information contained in this document represents components of the legal health record. It is not the complete legal health record.[facility]
--- OUTSIDE RECORDS SUMMARY | 2025-06-12 19:11 | XMS_ITS | Clinical Summary ---
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 History of malignant basal cell neoplasm of skin 01/27/2019 Overview (09/16/2022): lip Encounters Date Type Department Care Team Description 05/22/2025 Refill [facility] [address] [phone] Neo Rollins MD 04/03/2025 1:30 PM EDT Office Visit [facility] [address] [phone] Neo Rollins MD Chronic kidney disease, stage 4 (severe) (HCC) (Primary Dx); Type 2 diabetes mellitus with diabetic chronic kidney disease (HCC); Renal disorder due to type 2 diabetes mellitus <Diabetic nephropathy> (HCC); Anemia in chronic kidney disease 04/02/2025 Refill [facility] [address] [phone] Neo Rollins MD 03/28/2025 Orders Only [facility] [address] [phone] Neo Rollins MD from Last 3 Months [...] Office Visit [facility] [address] [phone] Neo Rollins MD [address] [phone] Health Maintenance Due Date Last [...] Neo Rollins MD LAB URINE ORDERABLES Final [facility] Performing Organization Address [facility] de Phone Number [place] See order comments [place] [address] * (ABNORMAL) Albumin, urine, random (03/28/2025 12:51 [...] Neo Rollins MD LAB URINE ORDERABLES Final [facility] Performing Organization Address [facility] de Phone Number [place] See order comments [place] [address] * (ABNORMAL) Urinalysis with microscopic (03/28/2025 12:51 PM EDT) Color Urine Yellow See orde r comments Appearance Urine Clear See order comments pH Urine 6.5 5.0 - 9.0 See order comments Glucose Urine Negative Negative mg/dL See order comments Blood, Urine Negative Negative See ord er comments Specific [place] Urine 1.010 1.005 - 1.025 See order [...] ORDERABLES Final Re sult Performing Organization Address [facility] Co de Phone Number [facility] See order comments [place] [address] * (ABNORMAL) Creatinine (03/28/2025 12:10 PM EDT) Creatinine Serum 2.46(H) 0.5 - 1.4 mg/dL See order comments eGFR (Calc) 18 See orde r comments Comment: Chronic Kidney Disease: Estimated GFR < 60 mL/min/1.73m2 Severe Kidney Disease: Estimated GFR < 15 mL/min/1.73m2 03/28/2025 12:1 0 PM EDT 03/28/2025 12:10 PM EDT us Neo Rollins MD LAB BLOOD ORDERABLES Final Re sult Performing Organization Address [facility] de Phone Number [place] See order comments [place] [address] * (ABNORMAL) PTH, Intact (03/28/2025 12:10 PM EDT) Parathyroid Hormone, Intact 106.6(H) 8.7 - 77.1 pg/mL See order comments 03/28/2025 12:1 0 PM EDT 03/28/2025 12:10 PM EDT us Neo Rollins MD LAB [id number] SOLICITED RESULTS Final Result Performing Organization Address [facility] Co de Phone Number [place] See order comments [place] [address] * (ABNORMAL) Vitamin D 25 Hydroxy (03/28/2025 [...] order comments [place] [address] * (ABNORMAL) CBC and Differential (03/28/2025 12:10 [...] order comments [place] [address] * (ABNORMAL) BUN (03/28/2025 12:10 PM EDT) BUN 53(H) 9 - 16 mg/dL See order comments 03/28/2025 12:1 0 PM EDT 03/28/2025 12:10 PM EDT us Neo Rollins MD LAB BLOOD ORDERABLES Final Re sult Performing Organization Address [facility] Phone Number [place] See order comments [place] [address] * Phosphorus (03/28/2025 12:10 PM EDT) Phosphorus, Serum 2.7 2.7 - 4.5 mg/dL See order comments Blood specimen (specimen) Venous blood / Unknown 03/28/2025 12:10 PM EDT 03/28/2025 12:10 PM EDT us Neo Rollins MD LAB BLOOD ORDERABLES Final Re sult Performing Organization Address [facility] Phone Number [place] See order comments [place] [address] * Magnesium (03/28/2025 12:10 PM EDT) Magnesium 1.6 1.6 - 2.6 mg/dL See order comments Blood specimen (specimen) Venous blood / Unknown 03/28/2025 12:10 PM EDT 03/28/2025 12:10 PM EDT us Neo Rollins MD LAB BLOOD ORDERABLES Final Re sult Performing Organization Address [facility] Phone Number [place] See order comments [place] [address] * Calcium (03/28/2025 12:10 PM EDT) Calcium 9.6 8.4 - 10.2 mg/dL See order comments Blood specimen (specimen) Venous blood / Unknown 03/28/2025 12:10 PM EDT 03/28/2025 12:10 PM EDT us Neo Rollins MD LAB BLOOD ORDERABLES Final Re sult Performing Organization Address [facility] de Phone Number [place] See order comments [place] [address] * Albumin (03/28/2025 12:10 PM EDT) Albumin 3.5 3.5 - 5.0 g/dL See order comments Blood specimen (specimen) Venous blood / Unknown 03/28/2025 12:10 PM EDT 03/28/2025 12:10 PM EDT Neo Rollins MD LAB BLOOD ORDERABLES Final Re sult Performing Organization Address [facility] Co de Phone Number [place] See order comments [place] [address] * Electrolyte panel (03/28/2025 12:10 PM EDT) [...] ORDERABLES Final Re sult Performing Organization Address [facility] de Phone Number [facility] See order comments [place] [address] * Hemoglobin A1c (04/18/2019 10:34 AM EDT) [...] average glucose, using the formula of the [id number] Average Glucose study (ADAG), Diabetes Care, Vol.31,#8, Mar. 2007 04/18/2019 10:3 4 AM EDT Christopher Zamudio MD LAB BLOOD ORDERABLES Final Resu lt [place] from Last 3 Months or Most Recently Relevant to Health Maintenance Insurance [facility] Medicare [place] Medicare [facility] [place] Care Teams Kitchen Assistant Relationship Specialty Start Date End Date Christopher Zamudio MD [address] [place] [address] PCP - General 09/02/20
--- OUTSIDE RECORDS SUMMARY | 2025-06-12 19:11 | XMS_ITS | Data Portability ---
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 Name Role Phone TISHA MANZO Primary Care [...] Address Organization Details Recorded Time Bacteremi a 8696380 Active 2022 MSSA foot infection Not Available [facility] 4 02:47:47 Type 2 diabetes mellitus 85527316 Active 2022 Not Available [facility] 4 02:47:47 Hypothyro idism 57610358 Active 2022 Not Available [facility] 4 02:47:47 Chronic kidney disease 361458541 Active 2022 Not Available [facility] 4 02:47:47 Gout 58947107 Active 2022 Not Available [facility] 4 02:47:47 Gastroeso phageal reflux disease without esophagit is 988561171 Active 2022 Not Available [facility] 4 02:47:47 Hyperlipi demia 20398292 Active 2022 Not Available [facility] 4 02:47:47 Essential hypertens ion 20664942 Active 2022 Not Available [facility] 4 02:47:47 Hypomagne semia 625474517 Active 2023 Not Available [facility] 4 02:47:47 Vitamin D deficienc y 87151426 Active 2023 Not Available [facility] 4 02:47:47 Chronic diastolic heart failure 854520280 Active 2023 Janee Davis MD [address] [facility], [facility] [address], [place], [address] , [employer] 4 10:48:17 Anemia 223847274 Active 2023 Janee Davis MD [address] [facility], [address], [place], [address] , [facility] 4 11:10:38 Bimalleol ar fracture of ankle 412198780 Active 2023 TATI CURRIE [address] [facility], [facility] [address], [place], [address] , 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, [address], [place], [address] , [facility] 4 23:00:37 Notes:Some problems listed i n Document: #[id number] could not be added to this patient's chart. Please review this document and add these problems to the patient's chart manually as needed. Problem Notes None recorded. Medical Equipment None Reported. Allergies Allergen ID Allergen Name Allergen Category Reaction Reaction Severity Criticality Documentation Date Start Date Code Code System Note Provider Name and Address Organization Details Recorded Time 32226 codeine medicatio n Not available Not available Not available 08/20/2023 2670 RxNorm ALVARADO DEL CID NP [address] [facility], [address], [place], [address], [facility] 3 10:53:18 Vitals Date Recorded Body height Heart rate Respiratory rate Body temperature Systolic And Diastolic Provider Name and Address Organization Details Last Updated DateTime 4 170.18 cm 80 /min 16 /min 98 [degF] 129/78 mm[Hg] TATI CURRIE [address] [facility], [address], [place], [address], [facility] 4 10:52:49 Date Recorded Body height Body temperature Respiratory rate Heart rate Systolic And Diastolic Provider Name and Address Organization Details Last Updated DateTime 4 170.18 cm 97.3 [degF] 18 /min 68 /min 122/68 mm[Hg] TATI CURRIE [address] [facility], [address], [place], [address], [facility] 4 14:33:03 Date Recorded Body height Heart rate Respiratory rate Body temperature Systolic And Diastolic Provider Name and Address Organization Details Last Updated DateTime 4 170.18 cm 74 /min 18 /min 98 [degF] 132/74 mm[Hg] TATI CURRIE [address] [facility], [address], [place], [address], [facility] 4 12:19:44 Date Recorded Body height Body mass index (BMI) Body weight Heart rate Respiratory rate Body temperature Oxygen saturation Oxygen saturation in Arterial blood by Pulse oximetry Systolic And Diastolic Provider Name and Address Organization Details Last Updated DateTime 4 170.18 cm 31.6 kg/m2 90568.6 6 g 79 /min 18 /min 97.4 [degF] 100 % 100 % 141/75 mm[Hg] Janee Davis MD [address] [facility], [address], [place], [address], [facility] 4 21:07:19 Date Recorded Body height Heart rate Respiratory rate Body temperature Oxygen saturation Oxygen saturation in Arterial blood by Pulse oximetry Systolic And Diastolic Provider Name and Address Organization Details Last Updated DateTime 4 170.18 cm 79 /min 18 /min 98 [degF] 100 % 100 % 141/75 mm[Hg] TATI CURRIE [address], [address], [place], [address], [facility] 4 14:26:02 Social History Question Answer Notes LastModified by [employer] Details LastModified Time Tobacco Smoking Status Never Smoker ALVARADO DEL CID NP [address], [address], [place], [address], [facility] 08/20/2023 11:16:58 Do You Have An Advance Directive? Yes Information not available 08/20/2023 What Is Your Code Status? Full Code Information not available 08/20/2023 Where Do You Live? SingleLevelHouse Lives With Son, 3-4 Steps To Enter Information not available 08/24/2023 Legal Guardian? No Informati on not available 08/24/2023 Do You Have A Medical Power Of Process Automation Engineer? Yes Information not available 08/24/2023 What Was [...] Functional Status Question Answer Note LastModified by [employer] Details LastModified Time Do you use any [...] adjuvanted, quadrivalent, PF 3 completed Not Available [facility] 09/30/2023 02:47:47 Td(adult) unspecified formulation 1 completed [facility] 12/28/2023 16:20:20 SARS-COV-2 (COVID-19) vaccine, UNSPECIFIED 1 completed [facility] 12/28/2023 16:20:43 SARS-COV-2 (COVID-19) vaccine, UNSPECIFIED 1 completed [facility] 12/28/2023 16:20:50 pneumococcal polysaccharide PPV23 1 completed [facility] 12/28/2023 16:21:57 SARS-COV-2 (COVID-19) vaccine, UNSPECIFIED 1 completed [facility] 12/28/2023 16:22:45 Past Encounters Encounter ID Performer Location Encounter Start Date Encounter Closed Date Diagnosis/Indication Diagnosis SNOMED-CT Code Diagnosis ICD10 Code Diagnosis IMO Codes Diagnosis Note [id number] SCOTT NOBLES [address] [place] [address] 08/20/2023 09:52:59 08/31/2023 13:27:41 Bacteremia 8204622 R78.81 flush picc qshiftcefa zolin 1 gm bid to 2/2followu p with vascular as planned Type 2 tiara betes mellitus 72296225 E11.9 humulin/re g 70/30 50 units bidmonitor glucose Chronic ki dney disease 476178393 N18.9 monitor labsavoid nephrotoxi c meds Gastroesop hageal reflux disease without esophagitis 436886618 K21.9 mag ox 400 mg daily to 18omepraz ole 20 mg daily Gout 28023781 M10.9 allopurino l 100 mg dailyD3 1250 [id number] Hyperlipidemia 94034627 E78.5 fenofibrat e 160 mg daily Hypothyroidism 11322811 E03.9 hx of Essential hypertension 21323165 I10 lasix 20 mg dailyhydra lazine 25 mg bidtoprol 25 mg dailymonit or bplisinopr il stopped in hospital [id number] ALVARADO DEL CID NP [address] [place] [address] 08/24/2023 13:44:02 08/25/2023 03:52:21 Type 2 diabetes mellitus 10892192 E11.9 humulin/re g 70/30 50 units bidmonitor glucose Bacteremia 8153616 R78.8 1 flush picc qshiftcefa zolin 1 gm bid to 2/2followu p with vascular as planned [id number] Janee Davis MD [address] [place] [address] 08/24/2023 15:18:19 08/31/2023 14:10:55 Type 2 diabetes mellitus 98724129 E11.9 With some hypoglycem ia.Humulin 70/30 was lowered from 50 units BID to 25U BID and SSI continued. Monitor fingerstic ks, will change from TID to qid, with low dose SS at hs.HgA1C was 6.7 inpt. Bacteremia 4023322 R78.8 1 As above Osteomyeli tis of right foot 6496567804 646262 M86.271 S/P I&D and debridemen t. Vasc. surgeon (Dr. Friedman) felt that all diseased bone was removed.Co ntinue cefazolin 1 gm IV BID until 09/24 to complete 6 wk course.Con tinue wound care as ordered.F/ U with Dr. Friedman as planned. Chronic ki dney disease 733231442 N18.32 Back to baseline.C ontinue to avoid nephrotoxi c meds as able.Monit or labs.Renal consult prn. Gastroesop hageal reflux disease without esophagitis 940897080 K21.9 No current sxs.Contin ue omeprazole 20 mg qdMonitor sxs. Gout 27045807 M10.09 No current sxs.Contin ue allopurino l 100 mg qdMonitor for flare. Hyperlipidemia 38441010 E78.49 Continue fenofibrat e 160 mg qdMonitor as outpt. Hypothyroidism 65042116 E03.8 In hx.TSH WNL in 11/2022Moni tor as outpt Essential hypertension 84765815 I10 BP borderline at times, but acceptable for age.BP goal for this elderly woman is permissive HTN, with SBP<150 and DBP<90Cont inue lasix 20 mg qd, hydralazin e 25 mg BID and metoprolol 25 mg qd.Monitor BP and labs.No need to restart lisinopril at this time Hypomagnesemia 984607322 E83.42 Continue Mg+ 400 mg qd until 08/30, then recheck level Vitamin D deficiency 347 97449 E55.9 Continue ergocalcif denisse 50,000 IU every 14 days.Monit or levels [id number] [facility] CUR[facility] [address] [place] [address] 08/31/2023 11:38:57 09/08/2023 12:37:11 Bacteremia 8303360 R78.81 continuece fazolin 1 gm bid to 2ollow up with vascular Type 2 tiara betes mellitus 30370881 E11.9 200-280's mainlyhumu mahesh/reg 70/30 50 units bidmonitor glucose Chronic ki dney disease 501610633 N18.9 monitor labsavoid nephrotoxi c meds Gastroesop hageal reflux disease without esophagitis 859124058 K21.9 mag ox 400 mg daily to 08/30omepraz ole 20 mg daily Gout 43046093 M10.9 allopurino l 100 mg dailyD3 1250 [id number] Hyperlipidemia 86642602 E78.5 fenofibrat e 160 mg daily Hypothyroidism 36656396 E03.9 hx of Essential hypertension 27833455 I10 lasix 20 mg dailyhydra lazine 25 mg bidtoprol 25 mg dailymonit or bplisinopr il stopped in hospital [id number] TATI CURRIE [facility] [address] [place] [address] 09/02/2023 09:40:27 09/08/2023 13:38:51 Bacteremia 3684528 R78.81 continueMS SA right footcefazo mahesh 1 gm bid to 22follow up with vascular Type 2 tiara betes mellitus 70276151 E11.9 200-280's mainlychan ged back to humulin/re g 70/30 50 units bidmonitor glucose Osteomyeli tis of right foot 9336506959 561384 M86.271 S/P I&D and debridemen t. Vasc. surgeon (Dr. Friedman) felt that all diseased bone was removed.Co ntinue cefazolin 1 gm IV BID until 2 to complete 6 wk course.Con tinue wound care as ordered.F/ U with Dr. Friedman as planned. Edema of l ower extremity 856969142 R60.0 chronic BLEright greater than left [id number] TATI CURRIE [address] [address] 09/07/2023 13:02:41 09/13/2023 15:17:43 Bacteremia 6972164 R78.81 continueMS SA right footcefazo mahesh 1 gm bid to ollow up with vascular Type 2 tiara betes mellitus 81782948 E11.9 lispro SSChumulin /reg 70/30 50 units bidmonitor glucose Osteomyeli tis of right foot 4812099270 349573 M86.271 S/P I&D and debridemen t. Vasc. surgeon (Dr. Friedman) felt that all diseased bone was removed.Co ntinue cefazolin 1 gm IV BID until 09/24 to complete 6 wk course.Con tinue wound care as ordered.F/ U with Dr. Friedman as planned. Edema of l ower extremity 814789853 R60.0 chronic BLEright greater than left [id number] TATI CURRIE [address] [address] 09/10/2023 06:52:27 09/15/2023 13:31:46 Bacteremia 1752578 R78.81 continueMS SA right footcefazo mahesh 1 gm bid to ollow up with vascular Type 2 tiara betes mellitus 74172114 E11.9 I spoke with patient today. previously [...] bidmonitor glucose Osteomyeli tis of right foot 4916929622 405831 M86.271 S/P I&D and debridemen t. Vasc. surgeon (Dr. rFiedman) felt that all diseased bone was removed.Co ntinue cefazolin 1 gm IV BID until 2/2 to complete 6 wk course.Con tinue wound care as ordered.F/ U with Dr. Friedman as planned. Edema of l ower extremity 227709408 R60.0 chronic BLEright greater than left [id number] TATI CURRIE [address] [place] [address] 09/14/2023 07:53:08 09/17/2023 08:57:48 Bacteremia 9177049 R78.81 continueMS SA right footcefazo mahesh 1 gm bid to 2/2follow up with vascular Type 2 tiara betes mellitus 31350564 E11.9 I spoke with patient today. previously [...] bidmonitor glucose Osteomyeli tis of right foot 5790297264 350100 M86.271 S/P I&D and debridemen t. Vasc. surgeon (Dr. Friedman) felt that all diseased bone was removed.Co ntinue cefazolin 1 gm IV BID until 2/2 to complete 6 wk course.Con tinue wound care as ordered.F/ U with Dr. Friedman as planned. Edema of l ower extremity 494800791 R60.0 chronic BLEright greater than left [id number] TATI CURRIE [address] [address] 09/17/2023 08:23:28 09/22/2023 11:50:26 Bacteremia 9760826 R78.81 continueMS SA right footcefazo mahesh 1 gm bid to 2/2follow up with vascular Type 2 tiara betes mellitus 61771654 E11.9 lispro SSChumulin /reg 70/30 30 units bidmonitor glucose Osteomyeli tis of right foot 2829502293 068274 M86.271 S/P I&D and debridemen t. Vasc. surgeon (Dr. Friedman) felt that all diseased bone was removed.Co ntinue cefazolin 1 gm IV BID until 2 to complete 6 wk course.Con tinue wound care as ordered.F/ U with Dr. Friedman as planned. Edema of l ower extremity 119146002 R60.0 chronic BLEright greater than left [id number] TATI CURRIE [address] [address] 09/21/2023 07:59:18 09/29/2023 08:59:51 Bacteremia 0212207 R78.81 continueNJ SA right footcefazo mahesh 1 gm bid to 2/ollow up with vascular Type 2 tiara betes mellitus 68750145 E11.9 lispro SSChumulin /reg 70/30 30 units bidmonitor glucose Osteomyeli tis of right foot 7233683162 557225 M86.271 S/P I&D and debridemen t. Vasc. surgeon (Dr. Friedman) felt that all diseased bone was removed.Co ntinue cefazolin 1 gm IV BID until 09/24 to complete 6 wk course.Con tinue wound care as ordered.F/ U with Dr. Friedman as planned. Edema of l ower extremity 139206344 R60.0 chronic BLEright greater than left [id number] TATI CURRIE [address] [address] 09/24/2023 12:21:41 09/29/2023 13:31:08 Bacteremia 4502450 R78.81 resolved Type 2 tiara betes mellitus 06597665 E11.9 humulin/re g 70/30 50 units bid Chronic ki dney disease 075609285 N18.9 monitor labsavoid nephrotoxi c meds Gastroesop hageal reflux disease without esophagitis 574453133 K21.9 mag ox 400 mg daily to 08/30omepraz ole 20 mg daily Gout 53531976 M10.9 allopurino l 100 mg dailyD3 1250 [id number] Hyperlipidemia 92404719 E78.5 fenofibrat e 160 mg daily Hypothyroidism 40086402 E03.9 TSH WNL in 11/2022Moni tor as outptcurre ntly not on medication . Essential hypertension 26602102 I10 lasix 20 mg dailyhydra lazine 25 mg bidtoprol 25 mg daily Osteomyeli tis of right foot 2161844468 961952 M86.271 S/P I&D and debridemen t. Vasc. surgeon (Dr. Friedman) felt that all diseased bone was removed.co mpleted IV cefazolin 1 gm IV BID 09/24/23Cont inue wound care as ordered.F/ U with Dr. Friedman as planned. Hypomagnesemia 381990545 E83.42 monitor outpt labs Vitamin D deficiency 347 98273 E55.9 Continue ergocalcif denisse 50,000 IU every 14 days.Monit or levels [id number] Janee Davis MD [address] [place] [address] 12/28/2023 15:33:48 01/13/2024 12:52:53 Chronic diastolic heart failure 432414654 I50.32 Appears euvolemic. Continue furosemide 40 mg qd and hydralazin e 25 mg BID.Monito r resp. status, fluid status, wts and labs. Paroxysmal atrial fibrillation 427022287 I48.0 Rate in good control on diltiazem 120 mg qd.Continu e eliquis 5 mg BID for AC.Monitor HR and bleeding risk. Type 2 tiara betes mellitus 20112275 E11.9 This AM FBS was 88. Last time she was here fastings tended to be ok, but with high sugars later in the day.HgA1C was 7.1 this AMContinue Humulin 70/30 20U BID and SSI.Monito r fingerstic ks TID Chronic ki dney disease 936080967 N18.32 Back to baseline.C ontinue to avoid nephrotoxi c meds as able.Monit or labs.Renal consult prn. Essential hypertension 53469092 I10 BP borderline at times, but acceptable for age.BP goal for this elderly woman is permissive HTN, with SBP<150 and DBP<90Cont inue meds as above.Rebeca tor BP and labs. Gastroesop hageal reflux disease without esophagitis 140623125 K21.9 No current sxs.Contin ue omeprazole 20 mg qdMonitor sxs. Gout 16136576 M10.09 No current sxs.Contin ue allopurino l 100 mg qdMonitor for flare. Hyperlipidemia 90145628 E78.49 Continue fenofibrat e 160 mg qdMonitor as outpt. Hypothyroidism 75194574 E03.8 In hx.TSH WNL inpt.Monit or as outpt Hypomagnesemia 287340876 E83.42 Continue Mg+ 400 mg BID.Monito r levels Vitamin D deficiency 347 71464 E56.8 Vit D supplement is ordered as cholecalci ferol 5000 IU every 14 days.Is supposed to be ergocalcif denisse 50,000 IU qd, will change.Mon itor levels Anemia 646985207 D64.89 Multifacto rial.Follo ws with Dr. White and gets procrit every few wks (has been irregular due to hospitaliz ations).Mo nitor labs Closed bim alleolar fracture of right ankle 4875023470 9289589 S82.841D Four wks from original injury.Con tinue PT/OT for strengthen ing, balance, gait training, safety and function.C ontinue APAP 1000 mg q 4 hrs prn, NTE 3000 mg/dContin ue fall precaution s.Monitor for safety.F/U with ortho as planned. [id number] TATI CURRIE [place] [address] [place] [address] rd [place] [address] 01/03/2024 13:24:31 01/05/2024 10:19:57 Chronic diastolic heart failure 716631440 I50.32 continue lasix 40 mg dailyconti nue potassium 20 meq daily Paroxysmal atrial fibrillation 438920224 I48.0 Cardizem 120 mg dailyconti nue eliquis 2.5 mg BID Type 2 tiara betes mellitus 47375688 E11.9 With some hypoglycem ia.continu e Humulin 70/30 20 units BID and SSI continued. continue fingerstic ks QID Essential hypertension 08660936 I10 BP goal for this elderly woman is permissive HTN, with SBP<150 and DBP<90Cont inue lasix 40 mg qd, hydralazin e 25 mg BID lasix 40 mg dailyMonit or BP and labs. Open wound of left lower leg 2142358760 5657163 S81.802A patient son reports that she gets wound care at [facility] and she suppose to have calcium alginate and zinc applied to and around left lower extremity wound. He wants this to continue until wound MD can eval.wound MD alarcon and treatwill ordered to cleanse wound with NS apply calcium alginate and zinc ben wound. [id number] TTAI CURRIE [address] [address] 01/07/2024 14:10:11 01/10/2024 13:39:22 Open wound of left lower leg 7994521393 [id number] S81.802A patient son reports that she gets wound care at [facility] and she suppose to have calcium alginate and zinc applied to and around left lower extremity wound. He wants this to continue until wound MD can eval.wound MD alarcon and treatwigeovanny ordered to cleanse wound with NS apply calcium alginate and zinc ben wound. Chronic di astolic heart failure 238103634 I50.32 continue lasix 40 mg dailyconti nue potassium 20 meq daily Paroxysmal atrial fibrillation 212404009 I48.0 Cardizem 120 mg dailyconti nue eliquis 2.5 mg BID Type 2 tiara betes mellitus 84624830 E11.9 With some hypoglycem ia.continu e Humulin 70/30 20 units BID and SSI continued. continue fingerstic ks QID Essential hypertension 86869969 I10 BP goal for this elderly woman is permissive HTN, with SBP<150 and DBP<90Cont inue lasix 40 mg qd, hydralazin e 25 mg BID lasix 40 mg dailyMonit or BP and labs. [id number] TATI CURRIE [address] [address] 01/11/2024 10:33:27 01/13/2024 16:16:44 Open wound of left lower leg 1568406242 [id number] S81.802A patient son reports that she gets wound care at [facility] and she suppose to have calcium alginate and zinc applied to and around left lower extremity wound. He wants this to continue until wound can eval.wound MD alarcon and quinton ordered to cleanse wound with NS apply calcium alginate and zinc ben wound. Chronic di astolic heart failure 372277309 I50.32 continue lasix 40 mg dailyconti nue potassium 20 meq daily Paroxysmal atrial fibrillation 177804519 I48.0 Cardizem 120 mg dailyconti nue eliquis 2.5 mg BID Type 2 tiara betes mellitus 21839016 E11.9 With some hypoglycem ia.continu e Humulin 70/30 20 units BID and SSI continued. continue fingerstic ks QID Essential hypertension 14462857 I10 BP goal for this elderly woman is permissive HTN, with SBP<150 and DBP<90Cont inue lasix 40 mg qd, hydralazin e 25 mg BID lasix 40 mg dailyMonit or BP and labs. Anemia 320756768 D64.89 H/H trending down this weekstarte d procrit 10/16 and scheduled for bi weeklyunsu re when she last receivedwi ll follow up with patient son. [id number] TATI CURRIE [place] [address] [facility] [place] [address] 01/13/2024 10:07:39 01/25/2024 10:52:36 Open wound of left lower leg 0378825830 4321974 S81.802A patient son reports that she gets wound care at [facility] and she suppose to have calcium alginate and zinc applied to and around left lower extremity wound. He wants this to continue until wound can eval.wound MD alarcon and quinton ordered to cleanse wound with NS apply calcium alginate and zinc ben wound. Chronic di astolic heart failure 380444589 I50.32 continue lasix 40 mg dailyconti nue potassium 20 meq daily Paroxysmal atrial fibrillation 367610003 I48.0 Cardizem 120 mg dailyconti nue eliquis 2.5 mg BID Type 2 tiara betes mellitus 74335092 E11.9 With some hypoglycem ia.continu e Humulin 70/30 20 units BID and SSI continued. continue fingerstic ks QID Essential hypertension 16592353 I10 BP goal for this elderly woman is permissive HTN, with SBP<150 and DBP<90Cont inue lasix 40 mg qd, hydralazin e 25 mg BID lasix 40 mg dailyMonit or BP and labs. 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 Surgical reconstruc tion [id number] TATI CURRIE [address] [address] 01/20/2024 09:44:29 01/25/2024 11:59:00 Open wound of left lower leg 2034970668 [id number] S81.802A continue calcium alginate and zinc left lower extremity woundwound MD alarcon and quinton ordered to cleanse wound with NS apply calcium alginate and zinc ben wound. Chronic di astolic heart failure 012468124 I50.32 stablecont inue lasix 40 mg dailyconti nue potassium 20 meq daily Paroxysmal atrial fibrillation 848912076 I48.0 HR 69Cardizem 120 mg dailyconti nue eliquis 2.5 mg BID Type 2 tiara betes mellitus 52878147 E11.9 With some hypoglycem ia.continu e Humulin 70/30 20 units BID and SSI continued. 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 Surgical reconstruc tion [id number] TATI CURRIE [place] [address] [place] [address] rd [place], [place] [address] 01/25/2024 10:02:09 01/31/2024 15:51:53 Open wound of left lower leg 5789694954 [id number] S81.802A continue calcium alginate and zinc left lower extremity woundwound MD alarcon and quinton ordered to cleanse wound with NS apply calcium alginate and zinc ben wound. Chronic di astolic heart failure 633619414 I50.32 continue lasix 40 mg dailyconti nue potassium 20 meq daily Paroxysmal atrial fibrillation 398443333 I48.0 Cardizem 120 mg dailyconti nue eliquis 2.5 mg BID Type 2 tiara betes mellitus 01542620 E11.9 no recent hypoglycem ic events.con tinue Humulin 70/30 20 units BID and SSI continued. 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 Surgical reconstruc tion [id number] TATI CURRIE [address] [place] [address] 01/28/2024 15:29:14 02/01/2024 08:26:24 Open wound of left lower leg [id number] S81.802A [facility] with NS apply calcium alginate and zinc ben wound.elev ate left foot/heel when sitting to keep DTI well perfused Chronic di astolic heart failure 395646434 I50.32 continue lasix 40 mg dailyconti nue potassium 20 meq daily Paroxysmal atrial fibrillation 491404762 I48.0 Cardizem 120 mg dailyconti nue eliquis 2.5 mg BID Type 2 tiara betes mellitus 37478871 E11.9 no recent hypoglycem ic events.con tinue Humulin 70/30 20 units BID and SSI continued. continue fingerstic ks QID Anemia 729651162 D64.89 recent labs stable,HX of normochrom ic normocytic anemiacont inue procrit 84393 10/16 and scheduled for bi weekly Bimalleola r fracture of ankle [id number] S82.841A she gets wound care from [facility] was seen on 01/23 and will f/u in 2 weeksconti chadde with current dressing change. 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 Surgical reconstruc tion [id number] TATI CURRIE [address] [facility] [place] [address] 02/01/2024 10:24:39 02/04/2024 08:49:56 Open wound of left lower leg [id number] 9634786 S81.802A continue to cleanse wound with NS apply calcium alginate and zinc ben wound.elev ate left foot/heel when sitting to keep DTI well perfused Chronic di astolic heart failure 841230469 I50.32 continue lasix 40 mg dailyconti nue potassium 20 meq daily Paroxysmal atrial fibrillation 223410149 I48.0 Cardizem 120 mg dailyconti nue eliquis 2.5 mg BID Type 2 tiara betes mellitus 56458463 E11.9 no recent hypoglycem ic events.con tinue Humulin 70/30 20 units BID and SSI continued. continue fingerstic ks QID Anemia 165765326 D64.89 recent labs stable,HX of normochrom ic normocytic anemiacont inue procrit 16988 10/16 and scheduled for bi weekly Bimalleola r fracture of ankle 626100874 S82.841A She [facility] was seen on 01/23 and will f/u in 2 weeksconti nue with current dressing change. 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 Surgical reconstruc tion Chronic ki dney disease 141971957 N18.32 monitor labsavoid nephrotoxi c meds Essential hypertension 79573796 I10 blood pressure has been stable 120-130sBP goal for this elderly woman is permissive HTN, with SBP<150 and DBP<90Cont inue lasix 40 mg qd, hydralazin e 25 mg BID lasix 40 mg dailyMonit or BP and labs. Gout 43542133 M10.09 allopurino l 100 mg dailynot reported recent flare up. [id number] TATI CURRIE [address] [facility] [address] [place] [address] 02/04/2024 09:44:41 02/07/2024 14:37:26 Open wound of left lower leg [id number] 7620419 S81.802A continue to cleanse wound with NS apply calcium alginate and zinc ben wound.elev ate left foot/heel when sitting to keep DTI well perfused Chronic di astolic heart failure 489552336 I50.32 euvolemicc ontinue lasix 40 mg dailyconti nue potassium 20 meq daily Paroxysmal atrial fibrillation 271221102 I48.0 Cardizem 120 mg dailyconti nue eliquis 2.5 mg BID Type 2 tiara betes mellitus 04126000 E11.9 BGLs mainly under 200's, a few noted in the 400s. patient and son are very particular about insulin dosing, so will not adjust.con tinue Humulin 70/30 20 units BID and SSI continued. continue fingerstic ks QID Anemia 424613552 D64.89 continue procrit 26603 10/16 and scheduled for bi weekly Bimalleola r fracture of ankle 207079651 S82.841A She [facility] wound [facility] was seen on 01/23 and [...] protector boot.2. Surgical reconstruc tion Essential hypertension 24638273 I10 BP goal for this elderly woman is permissive HTN, with SBP<150 and DBP<90Cont inue lasix 40 mg qd, hydralazin e 25 mg BID lasix 40 mg dailyMonit or BP and labs. [id number] TATI CURRIE AMELIA [address] [place] [address] 02/07/2024 11:53:48 02/09/2024 16:49:24 Open wound of left lower leg [id number] 4467498 S81.802A continue to cleanse wound with NS apply calcium alginate and zinc ben wound.elev ate left foot/heel when sitting to keep DTI well perfused Chronic di astolic heart failure 353225334 I50.32 continue lasix 40 mg dailyconti nue potassium 20 meq daily Paroxysmal atrial fibrillation 112164471 I48.0 Cardizem 120 mg dailyconti nue eliquis 2.5 mg BID Type 2 tiara betes mellitus 76529425 E11.9 continue Humulin 70/30 20 units BID and SSI continued. continue fingerstic ks QID Anemia 990925975 D64.89 continue procrit 15332 224 and scheduled for bi weekly Essential hypertension 33252736 I10 Continue lasix 40 mg qd, hydralazin e 25 mg BID lasix 40 mg dailyMonit or BP and labs. [id number] TATI CURRIE [address] [address] 02/10/2024 09:22:17 02/16/2024 10:42:27 Open wound of left lower leg [id number] 4911168 S81.802A continue to cleanse wound with NS apply calcium alginate and zinc ben wound. PCC updatedele vate left foot/heel when sitting to keep DTI well perfused Chronic di astolic heart failure 062422803 I50.32 continue lasix 40 mg dailyconti nue potassium 20 meq daily Paroxysmal atrial fibrillation 450609108 I48.0 Cardizem 120 mg dailyconti nue eliquis 2.5 mg BID Type 2 tiara betes mellitus 17571121 E11.9 continue Humulin 70/30 20 units BID and SSI continued. continue fingerstic ks QIDno reported hypo/hyper glycemic events. Essential hypertension 02613386 I10 Continue lasix 40 mg qd, hydralazin e 25 mg BID lasix 40 mg dailyMonit or BP and labs. [id number] Janee Davis MD [address] [address] 02/14/2024 21:04:27 03/14/2024 07:28:32 Chronic diastolic heart failure 840688950 I50.32 Appears euvolemic. Continue lasix 40 mg qd and KCl 20 meq qd to prevent hypokalemi a.Monitor resp. status, fluid status, wts and labs. Paroxysmal atrial fibrillation 459072920 I48.0 Rate in good control on meds as above.Cont inue eliquis 2.5 mg BID for AC.Monitor HR and bleeding risk. Type 2 tiara betes mellitus 93858120 E11.9 In adequate control.Co ntinue Humulin 70/30 20U BID and SSIContinu e fingerstic ks QID Essential hypertension 84485008 I10 In good control.Co ntinue lasix 40 mg qd, hydralazin e 25 mg BID, diltiazem 120 mg qd, and lasix 40 mg qdMonitor BP and labs. 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 Essential hypertension 40768333 I10 Continue lasix 40 mg qd, hydralazin e 25 mg BID lasix 40 mg dailyMonit or BP and labs. Chronic di astolic heart failure 382378731 I50.32 continue lasix 40 mg dailyconti nue potassium 20 meq daily Paroxysmal atrial fibrillation 064131859 I48.0 Cardizem 120 mg dailyconti nue eliquis 2.5 mg BID Type 2 tiara betes mellitus 73836285 E11.9 continue Humulin 70/30 20 units BID and SSI continued. continue fingerstic ks QIDno reported hypo/hyper glycemic events. Chronic ki dney disease 617755742 N18.32 Back to baseline.C ontinue to avoid nephrotoxi c meds as able.Monit or labs.Renal consult prn. Closed bim alleolar fracture of right ankle 9777104938 6736729 S82.841D Continue APAP 1000 mg q 4 hrs prn, NTE 3000 mg/dContin ue fall precaution s.Monitor for safety.F/U with ortho Gastroesop hageal reflux disease without esophagitis 495849557 K21.9 Continue omeprazole 20 mg qd Gout 63059600 M10.09 Continue allopurino l 100 mg qdMonitor for flare. Hyperlipidemia 05406766 E78.49 Continue fenofibrat e 160 mg qdMonitor as outpt. Hypothyroidism 33505857 E03.8 not on medsTSH WNL inpt.Monit or as outpt Hypomagnesemia 481014722 E83.42 Continue Mg+ 400 mg BID.Monito r levels Vitamin D deficiency 347 49455 E56.8 ergocalcif denisse 50,000 IU qdMonitor levels Anemia 757148168 D64.89 Multifacto rial.justo nue procrit 23528 bi weekly Health Concerns Section Related Observation LastModified by Organization Detai ls LastModified Time None Recorded Concern Status LastModified by Organization Details LastModified Time None Recorded Advance Directives Directive Y: Payers Insurance Date Sequence Insurance Name Policy Number Policy Bravo Covered Member ID Bravo Member ID Guarantor Name 01/25/2024 1 [place] [employer] Susan Laurent [id number] Susannicolas Rodríguezchiki 03/14/2024 2 [place] [id number] Susan Rodríguezchiki [id number] Susan Rodríguezchiki Notes Date Note Type Note Provider Name and Address Organization Details Recorded Time 02/04/2024 text/html ROS as noted in the HPI This is an 88 yo woman seen today for acute rounding visit. 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 Patient has been in and out of rehabs and hosp since 11/26 when she broke her right ankle, most recently at [facility] for a CHF exacerbation.She initially presented to the [facility] ED on 11/26 after an unknown injury. Found to have an Acute displaced bimalleolar fracture with ankle mortise disruption. Complicated by chronic pain from right foot Charcot arthropathy. She was splinted and instructed in strict NWB status and d/c to [facility]. Of note she had just been dxed with new onset Afib on 11/24 and started on diltiazem and apixaban.Returned to [facility] ED on 12/13, several days after d/c from [facility], because of difficulty ambulating at home and unable to help her due to his own issues. D/C on 12/15 to [facility] [place].Was sent to the [facility] ED on 12/17 because [...] there is no acute nursing concerns. TATI CURIRE [address], [address], [place], [address], [facility] 02/04/2024 11:01:05 02/07/2024 text/html ROS as noted in the HPI This is an 88 yo woman seen today for acute rounding visit. 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 Patient has been in and out of rehabs and hosp since 11/26 when she broke her right ankle, most recently at [facility] for a CHF exacerbation.She initially presented to the [facility] ED on 11/26 after an unknown injury. Found to have an Acute displaced bimalleolar fracture with ankle mortise disruption. Complicated by chronic pain from right foot Charcot arthropathy. She was splinted and instructed in strict NWB status and d/c to [facility]. Of note she had just been dxed with new onset Afib on 11/24 and started on diltiazem and apixaban.Returned to [facility] ED on 12/13, several days after d/c from [facility], because of difficulty ambulating at home and unable to help her due to his own issues. D/C on 12/15 to [facility].Was sent to the [facility] ED on 12/17 because of SOB and AMS.Labs and vitals were WNL (except Na+147 and BNP 222) CXR showed pulmonary edema with small pleural effusions. Neg for RSV/influenza and covid.EKG showed NSR and she was continued on diltiazem and apixaban.She was txed with IV lasix and K+A left dhillon wound was followed by wound care. TATI CURRIE [address], [address], [place], [address], [facility] 02/07/2024 14:37:38 02/10/2024 text/html ROS as noted in the HPI This is an 88 yo woman seen [...] and s/p MSSA sepsis. TATI CURRIE [address], [address], [place], [address], [facility] 02/10/2024 12:44:47 02/14/2024 text/html I am seeing this 88 yo woman for an acute visit today to f/u on RLE fx, ulcers and NWB status.Son has had concerns about mother refusing wound care and this is being addressed by nursing staff.She was seen at the [facility] wound clinic on 02/06 [...] s/p MSSA sepsis. Janee Davis MD [address], [address], [place], [address], [facility] 03/11/2024 19:10:29 02/18/2024 text/html This is an 88 yo woman due for discharge today. Patient has been in and out of rehabs and hosp since 11/26 when she broke her right ankle, most recently at [facility] for a CHF exacerbation.She initially presented to the [facility] ED on 11/26 after an unknown injury. Found to have a right Acute displaced bimalleolar fracture with ankle mortise disruption. Complicated by chronic pain from right foot Charcot arthropathy. She was splinted and instructed in strict NWB status and d/c to [facility]. Of note she had just been dxed with new onset Afib on 11/24 and started on diltiazem and apixaban.Returned to [facility] ED on 12/13, several days after d/c from [facility], because of difficulty ambulating at home and unable to help her due to his own issues. D/C on 12/15 to [facility].Was sent to the [facility] ED on 12/17 because of SOB and AMS.Labs and vitals were WNL (except Na+147 and BNP 222) CXR showed pulmonary edema with small pleural effusions. Neg for RSV/influenza and covid.EKG showed NSR and she was continued on diltiazem and apixaban.She was txed with IV lasix and K+A left dhillon wound was followed by wound care.She was transferred to [facility] on [facility] was done on 12/23 [...] and s/p MSSA sepsis. TATI CURRIE [address], [address], [place], [address], [facility] 02/18/2024 14:26:35 OBGyn Episode No OBEpisode recorded.
== END 2025-06-12 15:28 | disposition home or self-care (01) ==
LOC: HO.ENCR 14:13
PROVIDERS: Visit Provider Student in an Organized Health Care Education/Training Program
DX: E11.69 Type 2 diabetes mellitus with other specified complication (principal)
CPT/HCPCS: 99205

== ENCOUNTER 2025-06-18 11:03 | Outpatient (REF) | payer MEDICARE, SELFPAY ==
[2025-06-18 11:18] LABS: MANUAL DIFF FLAG NO
[2025-06-18 11:20] LABS: Hematocrit 34.9 % (37.0-47.0); Hemoglobin 10.8 g/dl (12.0-16.0); Imm Gran Abs Auto 0.02 X10*3/uL (0.00-0.03); Imm Gran Pct Auto 0.2 % (0.0-0.4); Lymphocytes Absolute Auto 1.3 X10*3/uL (1.2-4.9); Mean Corpuscular HGB Conc 30.9 g/dl (31.0-35.0); Mean Corpuscular Hemoglobin 27.6 pg (27.0-33.0); Mean Corpuscular Volume 89.0 fL (80.0-98.0); NRBC Abs Auto 0.000 X10*3/uL (0.0-0.012); NRBC Pct Auto 0.0 /100WBC (0.0-0.2); Platelet Count 237 X10*3/uL (160-400); Red Blood Count 3.92 X10*6/uL (4.20-5.50); White Blood Count 8.5 X10*3/uL (4.8-10.8)
--- OUTSIDE RECORDS SUMMARY | 2025-06-18 13:57 | XMS_ITS | Clinical Summary ---
Author Organization [facility] Address [address] [place] [address] Phone Care Team Providers Care Licensed Master Social Worker Name Role Phone Christopher Zamudio MD Primary Care Provider [phone] Allergies Active Allergy Reactions Criticality Noted Date [...] taking.Reported on 04/03/2025 epoetin jayna (EPOGEN,PROCRI T) 41583 UNIT/ML injectionIndic ations:Anemia due to Renal Failure [...] Overview (09/16/2022): Seen at [facility]. History of malignant basal cell neoplasm of skin 01/27/2019 Overview (09/16/2022): lip Encounters Date Type Department Care Team Description 05/22/2025 Refill [facility] [address] [address] Neo Rollins MD 04/03/2025 1:30 PM EDT Office Visit [facility] [address] [address] Neo Rollins MD Chronic kidney disease, stage 4 (severe) (HCC) (Primary Dx); Type 2 diabetes mellitus with diabetic chronic kidney disease (HCC); Renal disorder due to type 2 diabetes mellitus <Diabetic nephropathy> (HCC); Anemia in chronic kidney disease 04/02/2025 Refill [facility] [address] [address] Neo Rollins MD 03/28/2025 Orders Only [facility] [address] [address] Neo Rollins MD from Last 3 Months [...] Office Visit [facility] [address] [address] Neo Rollins MD [address] [address] Health Maintenance Due Date Last [...] Neo Rollins MD LAB URINE ORDERABLES Final [facility] Performing Organization Address [facility] de Phone Number [place] See order comments [place] [address] * (ABNORMAL) Albumin, urine, random (03/28/2025 12:51 [...] Neo Rollins MD LAB URINE ORDERABLES Final [facility] Performing Organization Address [facility] de Phone Number [place] See order comments [place] [address] * (ABNORMAL) Urinalysis with microscopic (03/28/2025 12:51 PM EDT) Color Urine Yellow See orde r comments Appearance Urine Clear See order comments pH Urine 6.5 5.0 - 9.0 See order comments Glucose Urine Negative Negative mg/dL See order comments Blood, Urine Negative Negative See ord er comments Specific [place] Urine 1.010 1.005 - 1.025 See order [...] ORDERABLES Final Re sult Performing Organization Address [facility] Co de Phone Number [facility] See order comments [place] [address] * (ABNORMAL) Creatinine (03/28/2025 12:10 PM EDT) Creatinine Serum 2.46(H) 0.5 - 1.4 mg/dL See order comments eGFR (Calc) 18 See orde r comments Comment: Chronic Kidney Disease: Estimated GFR < 60 mL/min/1.73m2 Severe Kidney Disease: Estimated GFR < 15 mL/min/1.73m2 03/28/2025 12:1 0 PM EDT 03/28/2025 12:10 PM EDT us Neo Rollins MD LAB BLOOD ORDERABLES Final Re sult Performing Organization Address [facility] de Phone Number [place] See order comments [place] [address] * (ABNORMAL) PTH, Intact (03/28/2025 12:10 PM EDT) Parathyroid Hormone, Intact 106.6(H) 8.7 - 77.1 pg/mL See order comments 03/28/2025 12:1 0 PM EDT 03/28/2025 12:10 PM EDT us Neo Rollins MD LAB [id number] SOLICITED RESULTS Final Result Performing Organization Address [facility] Co de Phone Number [place] See order comments [place] [address] * (ABNORMAL) Vitamin D 25 Hydroxy (03/28/2025 [...] order comments [place] [address] * (ABNORMAL) CBC and Differential (03/28/2025 12:10 [...] order comments [place] [address] * (ABNORMAL) BUN (03/28/2025 12:10 PM EDT) BUN 53(H) 9 - 16 mg/dL See order comments 03/28/2025 12:1 0 PM EDT 03/28/2025 12:10 PM EDT us Neo Rollins MD LAB BLOOD ORDERABLES Final Re sult Performing Organization Address [facility] Phone Number [place] See order comments [place] [address] * Phosphorus (03/28/2025 12:10 PM EDT) Phosphorus, Serum 2.7 2.7 - 4.5 mg/dL See order comments Blood specimen (specimen) Venous blood / Unknown 03/28/2025 12:10 PM EDT 03/28/2025 12:10 PM EDT us Neo Rollins MD LAB BLOOD ORDERABLES Final Re sult Performing Organization Address [facility] Phone Number [place] See order comments [place] [address] * Magnesium (03/28/2025 12:10 PM EDT) Magnesium 1.6 1.6 - 2.6 mg/dL See order comments Blood specimen (specimen) Venous blood / Unknown 03/28/2025 12:10 PM EDT 03/28/2025 12:10 PM EDT us Neo Rollins MD LAB BLOOD ORDERABLES Final Re sult Performing Organization Address [facility] Phone Number [place] See order comments [place] [address] * Calcium (03/28/2025 12:10 PM EDT) Calcium 9.6 8.4 - 10.2 mg/dL See order comments Blood specimen (specimen) Venous blood / Unknown 03/28/2025 12:10 PM EDT 03/28/2025 12:10 PM EDT us Neo Rollins MD LAB BLOOD ORDERABLES Final Re sult Performing Organization Address [facility] de Phone Number [place] See order comments [place] [address] * Albumin (03/28/2025 12:10 PM EDT) Albumin 3.5 3.5 - 5.0 g/dL See order comments Blood specimen (specimen) Venous blood / Unknown 03/28/2025 12:10 PM EDT 03/28/2025 12:10 PM EDT Neo Rollins MD LAB BLOOD ORDERABLES Final Re sult Performing Organization Address [facility] Co de Phone Number [place] See order comments [place] [address] * Electrolyte panel (03/28/2025 12:10 PM EDT) [...] ORDERABLES Final Re sult Performing Organization Address [facility] de Phone Number [facility] See order comments [place] [address] * Hemoglobin A1c (04/18/2019 10:34 AM EDT) [...] average glucose, using the formula of the V1Q-Nubross Average Glucose study (ADAG), Diabetes Care, Vol.31,#8, Mar. 2007 04/18/2019 10:3 4 AM EDT Christopher Zamudio MD LAB BLOOD ORDERABLES Final Resu lt [place] from Last 3 Months or Most Recently Relevant to Health Maintenance Insurance [facility] Medicare Medicaid [place] Medicare [facility] [place] Care Teams Licensed Master Social Worker Relationship Specialty Start Date End Date Christopher Zamudio MD [address] [place] [address] PCP - General 09/02/20
--- OUTSIDE RECORDS SUMMARY | 2025-06-18 13:57 | XMS_ITS | Clinical Summary ---
Author Organization [facility] Address [address] [place] [phone] Phone Care Team Providers Care Python Developer Name Role Phone Unknown, Unknown Primary Care [...] MEDICARE PART A & B [facility] FULL MEDEX SUPPLEMENT MEDICARE PART A & B [employer]ALTH [employer]AF[employer] NET FULL MEDEX SUPPLEMENT MEDICARE PART A & B HEALTH SAFETY NET FULL [employer] MEDEX SUPPLEMENT MEDICARE PART A & B [facility] FULL [employer] MEDEX SUPPLEMENT MEDICARE PART A & B [facility] FULL MEDEX SUPPLEMENT MEDICARE PART A & B [employer] NET FULL MEDEX SUPPLEMENT MEDICARE PART A & B [employer] NET FULL [employer] MEDEX SUPPLEMENT MEDICARE PART A & B [facility] FULL [employer] [place] MEDEX SUPPLEMENT MEDICARE PART A & B [facility] FULL Care Teams Python Developer Relationship Specialty Start Date End Date Unknown, Unknown, PCP - General 12/21/18 Additional Source Comments The information contained in this document represents components of the legal health record. It is not the complete legal health record.[facility]
--- OUTSIDE RECORDS SUMMARY | 2025-06-18 13:57 | XMS_ITS | Clinical Summary ---
Author Organization [address] [facility] Address [address] [place] [address] Phone Care Team Providers Care Motion Picture Commentator Name Role Phone Christopher Zamudio MD Primary Care Provider [phone] Surgical History Surgery Date Site/Laterality Comments CHOLECYSTECTOMY PROCEDURE: HISTORICAL CHOLECYSTECTOMY; COMMENT: 1981 LEG SURGERY 1985 PROCEDURE: HISTORICAL LEG SURGERY; COMMENT: Vein ablation APPENDECTOMY PROCEDURE: HISTORICAL APPENDECTOMY; COMMENT: 1981 OTHER SURGICAL HISTORY 08/18/2023 Right PROCEDURE: LA INCISION BONE CORTEX FOOT; COMMENT: right, 5th metatarsal OTHER SURGICAL HISTORY 08/18/2023 Right PROCEDURE: LA BIOPSY BONE OPEN SUPERFICIAL; COMMENT: right, 5th proximal phalanx OTHER SURGICAL HISTORY 08/18/2023 Right PROCEDURE: LA SECONDARY CLOSURE SURG WOUND/DEHSN XTNSV/COMP Medical History [...] (HCC); COMMENT: [facility]. History of cataract 10/17/2020 DX:History o f cataract Type 2 diabetes mellitus wit h cataract (CMS/HCC V24, CMS/HCC V28) 10/17/2020 DX:Type 2 diabetes mellitus with cataract ([facility]) Arrhythmia 10/17/2020 DX:Arrhythmia Family History [...] Info) Description 07/24/2025 10:00 AM EST Treatment [facility] Occupational Therapy [address] [place] [phone] Hannah Haas P, OTR/L Health Maintenance [...] Documents on File Type Date Recorded Patient Oceanographer Assistant Expl anation Health Care Decision (hx) 08/20/2023 AD العراقي DIRECTIVE Health Care Decision (hx) 08/20/2023 AD العراقي DIRECTIVE Care Teams Motion Picture Commentator Relationship Specialty Start Date End Date Christopher Zamudio MD [address] [place] [address] PCP - General 09/10/16
--- OUTSIDE RECORDS SUMMARY | 2025-06-18 13:57 | XMS_ITS | Clinical Summary ---
Author Organization [employer] Address [address] [place] [address] [address] [place] [address] Care Team Providers Care Epic Willow Analyst Name Role Phone Unavailable Primary Care Provider [...]
--- OUTSIDE RECORDS SUMMARY | 2025-06-18 13:57 | XMS_ITS | Patient Health Record ---
Author Organization [facility] Address [address] [place] [phone] Care Team Providers Care Lead Data Architect Name Role Phone Price Wilber Aubrey [phone] Reason For Referral No Information Plan Of Treatment No Information
== END 2025-06-18 11:04 | disposition home or self-care (01) ==
LOC: HO.LAB 11:03
PROVIDERS: Visit Provider Internal Medicine Medical Oncology
DX: D64.9 Anemia, unspecified (principal)
CPT/HCPCS: 36415; 85025

== ENCOUNTER → 2025-06-19 12:49 | Outpatient (REF) | payer MEDICARE, SELFPAY ==
--- NOTE | 2025-06-19 12:53 | CA_ITS ---
Transthoracic Echocardiogram Patient (Last, First, Middle): Susan Laurent M Gender: F Date of : 1935 Age: 89 Procedure Date: 06/19/2025 Procedure Type: Transthoracic Echocardiogram Location: OP Height: 165.1 cm Weight: 86.18 kg BSA: 1.94 m2 Heart Rate: bpm BP: 118 / 60 mmHg Senior Painter: VH Referring MD: Sarah Pedersen WASHING MACHINE REPAIRERGabby Symptoms: I48.91 - Unspecified atrial fibrillation Study Quality: Adequate ECG Rhythm: Atrial Fibrillation Conclusions: - The left ventricular systolic function is normal. The calculated ejection fraction is 56% by biplane method. - There is moderately increased left ventricular wall thickness. - No obvious valvular pathology seen on this study. - (done sitting on wheelchair) Findings Left Ventricle Normal left ventricular cavity size. There is moderately increased left ventricular wall thickness. The left ventricular systolic function is normal. The calculated ejection fraction is 56% by biplane method. There is no evidence of regional wall motion abnormalities. Diastolic function is indeterminate on the basis of available data. Right Ventricle Mildly increased right ventricular cavity size. There is normal right ventricular systolic function. Atria The left atrium is moderately dilated. The right atrium is normal in size. Aortic Valve There is a normal trileaflet aortic valve. There is no aortic valve stenosis. There is no aortic valve regurgitation. Mitral Valve There is mild mitral annular calcification. There is trace mitral valve regurgitation. There is no mitral valve stenosis. Pulmonic Valve The pulmonic valve is likely normal. Tricuspid Valve There is trace tricuspid valve regurgitation. There is no evidence of pulmonary hypertension. Great Vessels The asc aorta is normal in size. Venous The inferior vena cava is normal in size and collapses greater than 50% with inspiration. Pericardium/Pleural There is no evidence of pericardial effusion. Prior Study Comparison Changes noted compared to prior study dated: 12/24/2023. LVEF slightly higher. Recommendations, Care & Conclusions No obvious valvular pathology seen on this study. Measurements 2D Linear Measurements IVSd: 1.35 0.6-0.9/0.6-1.0 cm LVIDd: 4.56 3.9-5.3/4.2-5.9 cm LVIDd Index: 2.35 2.4-3.2/2.2-3.1 cm/m2 LVIDs: 3.03 2.0-3.6 cm LVPWd: 1.30 0.7-1.1 cm Ao Root: 3.00 2.1-3.5 cm LA Diam: 4.20 2.7-3.8/3.0-4.0 cm LAIDs Index: 2.16 1.5-2.3 cm/m2 LV Mass: 291.19 67-162/88-224 g LV Mass Index: 150.10 43-95/49-115 g/m2 LVOT Diam: 2.00 3.0+(-)1.3 cm 2D Systolic Function EF 4C: 63.20 >55% EF 2C: 46.80 >55% EF BiP: 56.30 >55% Mitral Valve MV VTI: 0.30 MV Pk Norm: 1.03 MV Mn Norm: 0.53 MV Pk Grad: 4.00 MV Mn Grad: 1.00 MV Pk E: 0.92 MV Decel Time: 246.00 E'Lateral: 9.25 E'Medial: 5.66 E/E' Med: 16.20 E/E' Lat: 9.90 PHT: 72.00 MVA PHT: 3.06 MVA Continuity: 1.65 Decel Barnwell: 3.74 Aortic Valve AoV Pk Norm: 1.55 AoV Mn Norm: 1.08 AoV VTI: 0.33 AoV Pk Grad: 10.00 Aov Mn Grad: 5.00 ROSELYN Cont.VTI: 1.52 LVOT LVOT Pk Norm: 0.74 LVOT Mn Norm: 0.48 LVOT VTI: 0.16 LVOT Pk Grad: 2.00 LVOT Mn Grad: 1.00 LVOT Diam: 2.00 LVOT Area: 3.14 Diastolic Function MV Pk E: 0.92 E'Medial: 5.66 E/E' Med: 16.20 E' Laterial: 9.25 E/E' Lat: 9.90 Right Ventricle TAPSE (mm): 18.00 Tricuspid Valve TR Pk Norm: 1.93 TR Pk Grad: 15.00 RA Press: 3.00 RVSP: 18.00 Great Vessels Aorta Ao Root-2D: 3.00 2.0-3.7 cm Ao Asc: 3.10 2.1-3.4 cm Pulmonary Valve PV Pk Norm: 0.91 Peak PV Grad: 3.00 Updated in Other Vendor System with Status of Final Jonathon Andrews MD electronically signed on 06/20/2025 4:14:27 PM with status of Final
--- OUTSIDE RECORDS SUMMARY | 2025-06-19 16:12 | XMS_ITS | Clinical Summary ---
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 History of malignant basal cell neoplasm of skin 01/27/2019 Overview (09/16/2022): lip Encounters Date Type Department Care Team Description 05/22/2025 Refill [facility] [address] [address] Neo Rollins MD 04/03/2025 1:30 PM EDT Office Visit [facility] [address] [address] Neo Rollins MD Chronic kidney disease, stage 4 (severe) (HCC) (Primary Dx); Type 2 diabetes mellitus with diabetic chronic kidney disease (HCC); Renal disorder due to type 2 diabetes mellitus <Diabetic nephropathy> (HCC); Anemia in chronic kidney disease 04/02/2025 Refill [facility] [address] [address] Neo Rollins MD 03/28/2025 Orders Only [facility] [address] [address] Neo Rollins MD from Last 3 Months [...] [facility] [address] [address] Neo Rollins MD [address] [phone] Health Maintenance Due Date Last [...] Neo Rollins MD LAB URINE ORDERABLES Final [facility] Performing Organization Address [facility] de Phone Number TARAWA TERRACE See order comments [place] [address] * (ABNORMAL) Albumin, urine, random (03/28/2025 12:51 [...] Neo Rollins MD LAB URINE ORDERABLES Final [facility] Performing Organization Address [facility] de Phone Number [place] See order comments [place] [address] * (ABNORMAL) Urinalysis with microscopic (03/28/2025 12:51 PM EDT) Color Urine Yellow See orde r comments Appearance Urine Clear See order comments pH Urine 6.5 5.0 - 9.0 See order comments Glucose Urine Negative Negative mg/dL See order comments Blood, Urine Negative Negative See ord er comments Specific Dema Urine 1.010 1.005 - 1.025 See order [...] ORDERABLES Final Re sult Performing Organization Address [facility] Co de Phone Number [facility] See order comments [place] [address] * (ABNORMAL) Creatinine (03/28/2025 12:10 PM EDT) Creatinine Serum 2.46(H) 0.5 - 1.4 mg/dL See order comments eGFR (Calc) 18 See orde r comments Comment: Chronic Kidney Disease: Estimated GFR < 60 mL/min/1.73m2 Severe Kidney Disease: Estimated GFR < 15 mL/min/1.73m2 03/28/2025 12:1 0 PM EDT 03/28/2025 12:10 PM EDT us Neo Rollins MD LAB BLOOD ORDERABLES Final Re sult Performing Organization Address [facility] de Phone Number [place] See order comments [place] [address] * (ABNORMAL) PTH, Intact (03/28/2025 12:10 PM EDT) Parathyroid Hormone, Intact 106.6(H) 8.7 - 77.1 pg/mL See order comments 03/28/2025 12:1 0 PM EDT 03/28/2025 12:10 PM EDT us Neo Rollins MD LAB [id number] SOLICITED RESULTS Final Result Performing Organization Address [facility] Co de Phone Number [place] See order comments [place] [address] * (ABNORMAL) Vitamin D 25 Hydroxy (03/28/2025 [...] order comments [place] [address] * (ABNORMAL) CBC and Differential (03/28/2025 12:10 [...] order comments [place] [address] * (ABNORMAL) BUN (03/28/2025 12:10 PM EDT) BUN 53(H) 9 - 16 mg/dL See order comments 03/28/2025 12:1 0 PM EDT 03/28/2025 12:10 PM EDT us Neo Rollins MD LAB BLOOD ORDERABLES Final Re sult Performing Organization Address [facility] Phone Number [place] See order comments [place] [address] * Phosphorus (03/28/2025 12:10 PM EDT) Phosphorus, Serum 2.7 2.7 - 4.5 mg/dL See order comments Blood specimen (specimen) Venous blood / Unknown 03/28/2025 12:10 PM EDT 03/28/2025 12:10 PM EDT us Neo Rollins MD LAB BLOOD ORDERABLES Final Re sult Performing Organization Address [facility] Phone Number TARAWA TERRACE See order comments [place] [address] * Magnesium (03/28/2025 12:10 PM EDT) Magnesium 1.6 1.6 - 2.6 mg/dL See order comments Blood specimen (specimen) Venous blood / Unknown 03/28/2025 12:10 PM EDT 03/28/2025 12:10 PM EDT us Neo Rollins MD LAB BLOOD ORDERABLES Final Re sult Performing Organization Address [facility] Phone Number TARA[place] TERR[place] See order comments [place] [address] * Calcium (03/28/2025 12:10 PM EDT) Calcium 9.6 8.4 - 10.2 mg/dL See order comments Blood specimen (specimen) Venous blood / Unknown 03/28/2025 12:10 PM EDT 03/28/2025 12:10 PM EDT us Neo Rollins MD LAB BLOOD ORDERABLES Final Re sult Performing Organization Address [facility] de Phone Number TARAWA TERRACE See order comments [place] [address] * Albumin (03/28/2025 12:10 PM EDT) Albumin 3.5 3.5 - 5.0 g/dL See order comments Blood specimen (specimen) Venous blood / Unknown 03/28/2025 12:10 PM EDT 03/28/2025 12:10 PM EDT Neo Rollins MD LAB BLOOD ORDERABLES Final Re sult Performing Organization Address [facility] Co de Phone Number TARAWA TERRACE See order comments [place] [address] * Electrolyte panel (03/28/2025 12:10 PM EDT) [...] ORDERABLES Final Re sult Performing Organization Address [facility] de Phone Number [facility] See order comments [place] [address] * Hemoglobin A1c (04/18/2019 10:34 AM EDT) [...] average glucose, using the formula of the [id number] Average Glucose study (ADAG), Diabetes Care, Vol.31,#8, Mar. 2007 04/18/2019 10:3 4 AM EDT Christopher Zamudio MD LAB BLOOD ORDERABLES Final Resu lt [place] from Last 3 Months or Most Recently Relevant to Health Maintenance Insurance [facility] Medicare Medicaid [place] Medicare [facility] [place] Care Teams Catalyst Operator Chief Relationship Specialty Start Date End Date Christopher Zamudio MD [address] [place] [address] PCP - General 09/02/20
--- OUTSIDE RECORDS SUMMARY | 2025-06-19 16:12 | XMS_ITS | Clinical Summary ---
Author Organization [employer] Address [address] [place] [address] 7t [place] [address] Care Team Providers Care Resource Development Manager Name Role Phone Unavailable Primary Care [...]
--- OUTSIDE RECORDS SUMMARY | 2025-06-19 16:12 | XMS_ITS | Clinical Summary ---
Author Organization [address] [facility] Address [address] [place] [address] Phone Care Team Providers Care Knit Goods Washer Name Role Phone Christopher Zamudio MD Primary [...] (HCC); COMMENT: [facility]. History of cataract 10/17/2020 DX:History o f cataract Type 2 diabetes mellitus wit h cataract (CMS/HCC V24, CMS/HCC V28) 10/17/2020 DX:Type 2 diabetes mellitus with cataract ([facility]) Arrhythmia 10/17/2020 DX:Arrhythmia Family History Medical [...] Info) Description 07/24/2025 10:00 AM EST Treatment [facility] Occupational Therapy [address] [place] [phone] Hannah Haas P, OTR/L Health Maintenance [...] Documents on File Type Date Recorded Patient Housing Project Manager Expl anation Health Care Decision (hx) 08/20/2023 AD العراقي DIRECTIVE Health Care Decision (hx) 08/20/2023 AD العراقي DIRECTIVE Care Teams Knit Goods Washer Relationship Specialty Start Date End Date Christopher Zamudio MD [address] [place] [phone] PCP - General 09/10/16
--- OUTSIDE RECORDS SUMMARY | 2025-06-19 16:12 | XMS_ITS | Data Portability ---
Author Organization [facility], Main Office Address [address] [address] [address] [place] [address] Care Team Providers Care Inside Sales Name Role Phone TISHA MANZO Primary Care Provider YARA CISNEROS 2ND FLOOR OTHER [phone] Assessment Encounter Date Assessment Date Assessment LastModified [...] Address Organization Details Recorded Time Bacteremi a 9630365 Active 2022 MSSA foot infection Not Available [facility] 4 02:47:47 Type 2 diabetes mellitus 93848516 Active 2022 Not Available [facility] 4 02:47:47 Hypothyro idism 49430617 Active 2022 Not Available [facility] 4 02:47:47 Chronic kidney disease 471545347 Active 2022 Not Available [facility] 4 02:47:47 Gout 92486344 Active 2022 Not Available [facility] 4 02:47:47 Gastroeso phageal reflux disease without esophagit is 591459880 Active 2022 Not Available [facility] 4 02:47:47 Hyperlipi demia 88826657 Active 2022 Not Available [facility] 4 02:47:47 Essential hypertens ion 68690585 Active 2022 Not Available [facility] 4 02:47:47 Hypomagne semia 775951367 Active 2023 Not Available [facility] 4 02:47:47 Vitamin D deficienc y 17389794 Active 2023 Not Available [facility] 4 02:47:47 Chronic diastolic heart failure 142429976 Active 2023 Janee Davis MD [address] [facility], [facility] [address], [place], [address] , [employer] 4 10:48:17 Anemia 161318409 Active 2023 Janee Davis MD [address] [facility], [address], [place], [address] , [employer] 4 11:10:38 Bimalleol ar fracture of ankle 372471235 Active 2023 TATI CURRIE [address] [facility], [facility] [address], [place], [address] , [facility] [employer] 4 14:06:55 Stasis dermatiti s and 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 Please review this document and add these problems to the patient's chart manually as needed. Problem Notes None recorded. Medical Equipment None Reported. Allergies Allergen ID Allergen Name Allergen Category Reaction Reaction Severity Criticality Documentation Date Start Date Code Code System Note Provider Name and Address Organization Details Recorded Time 18743 codeine medicatio n Not available Not available Not available 08/20/2023 2670 RxNorm ALVARADO DEL ICD NP [address] [facility], [address], [place], [address], [facility] 3 10:53:18 Vitals Date Recorded Body height Heart rate Respiratory rate Body temperature Systolic And Diastolic Provider Name and Address Organization Details Last Updated DateTime 4 170.18 cm 80 /min 16 /min 98 [degF] 129/78 mm[Hg] TATI CURRIE [address] [facility], [address], [place], [address], [facility] 4 10:52:49 Date Recorded Body height Body temperature Respiratory rate Heart rate Systolic And Diastolic Provider Name and Address Organization Details Last Updated DateTime 4 170.18 cm 97.3 [degF] 18 /min 68 /min 122/68 mm[Hg] TATI CURRIE [address] [facility], [address], [place], [address], [facility] 4 14:33:03 Date Recorded Body height Heart rate Respiratory rate Body temperature Systolic And Diastolic Provider Name and Address Organization Details Last Updated DateTime 4 170.18 cm 74 /min 18 /min 98 [degF] 132/74 mm[Hg] TATI CURRIE [address] [facility], [address], [place], [address], [facility] 4 12:19:44 Date Recorded Body height Body mass index (BMI) Body weight Heart rate Respiratory rate Body temperature Oxygen saturation Oxygen saturation in Arterial blood by Pulse oximetry Systolic And Diastolic Provider Name and Address Organization Details Last Updated DateTime 4 170.18 cm 31.6 kg/m2 69396.6 6 g 79 /min 18 /min 97.4 [degF] 100 % 100 % 141/75 mm[Hg] Janee Davis MD [address] [facility], [address], [place], [address], [facility] 4 21:07:19 Date Recorded Body height Heart rate Respiratory rate Body temperature Oxygen saturation Oxygen saturation in Arterial blood by Pulse oximetry Systolic And Diastolic Provider Name and Address Organization Details Last Updated DateTime 4 170.18 cm 79 /min 18 /min 98 [degF] 100 % 100 % 141/75 mm[Hg] TATI CURRIE [address], [address], [place], [address], [facility] 4 14:26:02 Social History Question Answer Notes LastModified by Border Stylo Details LastModified Time Tobacco Smoking Status Never Smoker ALVARADO DEL CID NP [address], [address], [place], [address], [facility] 08/20/2023 11:16:58 Do You Have An Advance Directive? Yes Information not available 08/20/2023 What Is Your Code Status? Full Code Information not available 08/20/2023 Where Do You Live? SingleLevelHouse Lives With Son, 3-4 Steps To Enter Information not available 08/24/2023 Legal Guardian? No Informati on not available 08/24/2023 Do You Have A Medical Power Of Cash Manager? Yes Information not available 08/24/2023 What Was [...] Functional Status Question Answer Note LastModified by Border Stylo Details LastModified Time Do you use any [...] quadrivalent, PF 3 completed Not Available [facility] 09/30/2023 02:47:47 Td(adult) unspecified formulation 1 completed [facility] 12/28/2023 16:20:20 SARS-COV-2 (COVID-19) vaccine, UNSPECIFIED 1 completed [facility] 12/28/2023 16:20:43 SARS-COV-2 (COVID-19) vaccine, UNSPECIFIED 1 completed [facility] 12/28/2023 16:20:50 pneumococcal polysaccharide PPV23 1 completed [facility] 12/28/2023 16:21:57 SARS-COV-2 (COVID-19) vaccine, UNSPECIFIED 1 completed [facility] 12/28/2023 16:22:45 Past Encounters Encounter ID Performer Location Encounter Start Date Encounter Closed Date Diagnosis/Indication Diagnosis SNOMED-CT Code Diagnosis ICD10 Code Diagnosis IMO Codes Diagnosis Note [id number] SCOTT NOBLES [address] [place] [address] 08/20/2023 09:52:59 08/31/2023 13:27:41 Bacteremia 1763497 R78.81 flush picc qshiftcefa zolin 1 gm bid to 2/2followu p with vascular as planned Type 2 tiara betes mellitus 23084980 E11.9 humulin/re g 70/30 50 units bidmonitor glucose Chronic ki dney disease 056810688 N18.9 monitor labsavoid nephrotoxi c meds Gastroesop hageal reflux disease without esophagitis 361962245 K21.9 mag ox 400 mg daily to 18omepraz ole 20 mg daily Gout 24899495 M10.9 allopurino l 100 mg dailyD3 1250 n89numb Hyperlipidemia 93578194 E78.5 fenofibrat e 160 mg daily Hypothyroidism 24424367 E03.9 hx of Essential hypertension 29073559 I10 lasix 20 mg dailyhydra lazine 25 mg bidtoprol 25 mg dailymonit or bplisinopr il stopped in hospital [id number] ALVARADO DEL CID NP [address] [place] [address] 08/24/2023 13:44:02 08/25/2023 03:52:21 Type 2 diabetes mellitus 12770166 E11.9 humulin/re g 70/30 50 units bidmonitor glucose Bacteremia 8308869 R78.8 1 flush picc qshiftcefa zolin 1 gm bid to 2/2followu p with vascular as planned [id number] Janee Davis MD [address] [place] [address] 08/24/2023 15:18:19 08/31/2023 14:10:55 Type 2 diabetes mellitus 29792367 E11.9 With some hypoglycem ia.Humulin 70/30 was lowered from 50 units BID to 25U BID and SSI continued. Monitor fingerstic ks, will change from TID to qid, with low dose SS at hs.HgA1C was 6.7 inpt. Bacteremia 6134042 R78.8 1 As above Osteomyeli tis of right foot 7573075325 113225 M86.271 S/P I&D and debridemen t. Vasc. surgeon (Dr. Friedman) felt that all diseased bone was removed.Co ntinue cefazolin 1 gm IV BID until 09/24 to complete 6 wk course.Con tinue wound care as ordered.F/ U with Dr. Friedman as planned. Chronic ki dney disease 675847119 N18.32 Back to baseline.C ontinue to avoid nephrotoxi c meds as able.Monit or labs.Renal consult prn. Gastroesop hageal reflux disease without esophagitis 209484647 K21.9 No current sxs.Contin ue omeprazole 20 mg qdMonitor sxs. Gout 98840022 M10.09 No current sxs.Contin ue allopurino l 100 mg qdMonitor for flare. Hyperlipidemia 81295654 E78.49 Continue fenofibrat e 160 mg qdMonitor as outpt. Hypothyroidism 57078422 E03.8 In hx.TSH WNL in 11/2022Moni tor as outpt Essential hypertension 51716189 I10 BP borderline at times, but acceptable for age.BP goal for this elderly woman is permissive HTN, with SBP<150 and DBP<90Cont inue lasix 20 mg qd, hydralazin e 25 mg BID and metoprolol 25 mg qd.Monitor BP and labs.No need to restart lisinopril at this time Hypomagnesemia 252291742 E83.42 Continue Mg+ 400 mg qd until 08/30, then recheck level Vitamin D deficiency 347 77469 E55.9 Continue ergocalcif denisse 50,000 IU every 14 days.Monit or levels [id number] [facility] [address] [place] [address] 08/31/2023 11:38:57 09/08/2023 12:37:11 Bacteremia 1766995 R78.81 continuece fazolin 1 gm bid to 2ollow up with vascular Type 2 tiara betes mellitus 34943669 E11.9 200-280's mainlyhumu mahesh/reg 70/30 50 units bidmonitor glucose Chronic ki dney disease 900167784 N18.9 monitor labsavoid nephrotoxi c meds Gastroesop hageal reflux disease without esophagitis 803736507 K21.9 mag ox 400 mg daily to 08/30omepraz ole 20 mg daily Gout 15994505 M10.9 allopurino l 100 mg dailyD3 1250 k35djvl Hyperlipidemia 20553129 E78.5 fenofibrat e 160 mg daily Hypothyroidism 98401742 E03.9 hx of Essential hypertension 41360736 I10 lasix 20 mg dailyhydra lazine 25 mg bidtoprol 25 mg dailymonit or bplisinopr il stopped in hospital [id number] TATI CURRIE [facility] [address] [place] [address] 09/02/2023 09:40:27 09/08/2023 13:38:51 Bacteremia 1459423 R78.81 continueMS SA right footcefazo mahesh 1 gm bid to 22follow up with vascular Type 2 tiara betes mellitus 57246904 E11.9 200-280's mainlychan ged back to humulin/re g 70/30 50 units bidmonitor glucose Osteomyeli tis of right foot 9904977543 527002 M86.271 S/P I&D and debridemen t. Vasc. surgeon (Dr. Friedman) felt that all diseased bone was removed.Co ntinue cefazolin 1 gm IV BID until 2 to complete 6 wk course.Con tinue wound care as ordered.F/ U with Dr. Friedman as planned. Edema of l ower extremity 535140581 R60.0 chronic BLEright greater than left [id number] TATI CURRIE [address] [address] 09/07/2023 13:02:41 09/13/2023 15:17:43 Bacteremia 6006373 R78.81 continueMS SA right footcefazo mahesh 1 gm bid to ollow up with vascular Type 2 tiara betes mellitus 55119482 E11.9 lispro SSChumulin /reg 70/30 50 units bidmonitor glucose Osteomyeli tis of right foot 8566049762 753177 M86.271 S/P I&D and debridemen t. Vasc. surgeon (Dr. Friedman) felt that all diseased bone was removed.Co ntinue cefazolin 1 gm IV BID until 09/24 to complete 6 wk course.Con tinue wound care as ordered.F/ U with Dr. Friedman as planned. Edema of l ower extremity 712964958 R60.0 chronic BLEright greater than left [id number] TATI CURRIE [address] [address] 09/10/2023 06:52:27 09/15/2023 13:31:46 Bacteremia 5603965 R78.81 continueMS SA right footcefazo mahesh 1 gm bid to ollow up with vascular Type 2 tiara betes mellitus 64842001 E11.9 I spoke with patient today. previously [...] bidmonitor glucose Osteomyeli tis of right foot 1815647039 403146 M86.271 S/P I&D and debridemen t. Vasc. surgeon (Dr. Friedman) felt that all diseased bone was removed.Co ntinue cefazolin 1 gm IV BID until 2/2 to complete 6 wk course.Con tinue wound care as ordered.F/ U with Dr. Friedman as planned. Edema of l ower extremity 974481635 R60.0 chronic BLEright greater than left [id number] TATI CURRIE [address] [place] [address] 09/14/2023 07:53:08 09/17/2023 08:57:48 Bacteremia 4184397 R78.81 continueMS SA right footcefazo mahesh 1 gm bid to 2/2follow up with vascular Type 2 tiara betes mellitus 14477334 E11.9 I spoke with patient today. previously [...] bidmonitor glucose Osteomyeli tis of right foot 8907478046 998886 M86.271 S/P I&D and debridemen t. Vasc. surgeon (Dr. Friedman) felt that all diseased bone was removed.Co ntinue cefazolin 1 gm IV BID until 2/2 to complete 6 wk course.Con tinue wound care as ordered.F/ U with Dr. Friedman as planned. Edema of l ower extremity 648185636 R60.0 chronic BLEright greater than left [id number] TATI CURRIE [address] [address] 09/17/2023 08:23:28 09/22/2023 11:50:26 Bacteremia 3259377 R78.81 continueMS SA right footcefazo mahesh 1 gm bid to 2/2follow up with vascular Type 2 tiara betes mellitus 12830333 E11.9 lispro SSChumulin /reg 70/30 30 units bidmonitor glucose Osteomyeli tis of right foot 9483498950 299103 M86.271 S/P I&D and debridemen t. Vasc. surgeon (Dr. Friedman) felt that all diseased bone was removed.Co ntinue cefazolin 1 gm IV BID until 2 to complete 6 wk course.Con tinue wound care as ordered.F/ U with Dr. Friedman as planned. Edema of l ower extremity 783007689 R60.0 chronic BLEright greater than left [id number] TATI CURRIE [address] [address] 09/21/2023 07:59:18 09/29/2023 08:59:51 Bacteremia 9895149 R78.81 continueWV SA right footcefazo mahesh 1 gm bid to 2/ollow up with vascular Type 2 tiara betes mellitus 77044610 E11.9 lispro SSChumulin /reg 70/30 30 units bidmonitor glucose Osteomyeli tis of right foot 4477804546 201141 M86.271 S/P I&D and debridemen t. Vasc. surgeon (Dr. Friedman) felt that all diseased bone was removed.Co ntinue cefazolin 1 gm IV BID until 09/24 to complete 6 wk course.Con tinue wound care as ordered.F/ U with Dr. Friedman as planned. Edema of l ower extremity 523728660 R60.0 chronic BLEright greater than left [id number] TATI CURRIE [address] [address] 09/24/2023 12:21:41 09/29/2023 13:31:08 Bacteremia 4565682 R78.81 resolved Type 2 tiara betes mellitus 53824008 E11.9 humulin/re g 70/30 50 units bid Chronic ki dney disease 344239852 N18.9 monitor labsavoid nephrotoxi c meds Gastroesop hageal reflux disease without esophagitis 464158744 K21.9 mag ox 400 mg daily to 08/30omepraz ole 20 mg daily Gout 91723260 M10.9 allopurino l 100 mg dailyD3 1250 e24vumd Hyperlipidemia 59814778 E78.5 fenofibrat e 160 mg daily Hypothyroidism 49106851 E03.9 TSH WNL in 11/2022Moni tor as outptcurre ntly not on medication . Essential hypertension 10779040 I10 lasix 20 mg dailyhydra lazine 25 mg bidtoprol 25 mg daily Osteomyeli tis of right foot 7015475668 038167 M86.271 S/P I&D and debridemen t. Vasc. surgeon (Dr. Friedman) felt that all diseased bone was removed.co mpleted IV cefazolin 1 gm IV BID 09/24/23Cont inue wound care as ordered.F/ U with Dr. Friedman as planned. Hypomagnesemia 616299585 E83.42 monitor outpt labs Vitamin D deficiency 347 04432 E55.9 Continue ergocalcif denisse 50,000 IU every 14 days.Monit or levels [id number] Janee Davis MD [address] [place] [address] 12/28/2023 15:33:48 01/13/2024 12:52:53 Chronic diastolic heart failure 579253939 I50.32 Appears euvolemic. Continue furosemide 40 mg qd and hydralazin e 25 mg BID.Monito r resp. status, fluid status, wts and labs. Paroxysmal atrial fibrillation 740857573 I48.0 Rate in good control on diltiazem 120 mg qd.Continu e eliquis 5 mg BID for AC.Monitor HR and bleeding risk. Type 2 tiara betes mellitus 79577971 E11.9 This AM FBS was 88. Last time she was here fastings tended to be ok, but with high sugars later in the day.HgA1C was 7.1 this AMContinue Humulin 70/30 20U BID and SSI.Monito r fingerstic ks TID Chronic ki dney disease 408782926 N18.32 Back to baseline.C ontinue to avoid nephrotoxi c meds as able.Monit or labs.Renal consult prn. Essential hypertension 72622812 I10 BP borderline at times, but acceptable for age.BP goal for this elderly woman is permissive HTN, with SBP<150 and DBP<90Cont inue meds as above.Rebeca tor BP and labs. Gastroesop hageal reflux disease without esophagitis 376225474 K21.9 No current sxs.Contin ue omeprazole 20 mg qdMonitor sxs. Gout 64350600 M10.09 No current sxs.Contin ue allopurino l 100 mg qdMonitor for flare. Hyperlipidemia 00330393 E78.49 Continue fenofibrat e 160 mg qdMonitor as outpt. Hypothyroidism 82800697 E03.8 In hx.TSH WNL inpt.Monit or as outpt Hypomagnesemia 036354329 E83.42 Continue Mg+ 400 mg BID.Monito r levels Vitamin D deficiency 347 41416 E56.8 Vit D supplement is ordered as cholecalci ferol 5000 IU every 14 days.Is supposed to be ergocalcif denisse 50,000 IU qd, will change.Mon itor levels Anemia 099784930 D64.89 Multifacto rial.Follo ws with Dr. White and gets procrit every few wks (has been irregular due to hospitaliz ations).Mo nitor labs Closed bim alleolar fracture of right ankle 1480443651 6853308 S82.841D Four wks from original injury.Con tinue PT/OT for strengthen ing, balance, gait training, safety and function.C ontinue APAP 1000 mg q 4 hrs prn, NTE 3000 mg/dContin ue fall precaution s.Monitor for safety.F/U with ortho as planned. [id number] TATI CURRIE [place] [address] [place] [address] rd [place] [address] 01/03/2024 13:24:31 01/05/2024 10:19:57 Chronic diastolic heart failure 915319226 I50.32 continue lasix 40 mg dailyconti nue potassium 20 meq daily Paroxysmal atrial fibrillation 621564471 I48.0 Cardizem 120 mg dailyconti nue eliquis 2.5 mg BID Type 2 tiara betes mellitus 80847098 E11.9 With some hypoglycem ia.continu e Humulin 70/30 20 units BID and SSI continued. continue fingerstic ks QID Essential hypertension 01968958 I10 BP goal for this elderly woman is permissive HTN, with SBP<150 and DBP<90Cont inue lasix 40 mg qd, hydralazin e 25 mg BID lasix 40 mg dailyMonit or BP and labs. Open wound of left lower leg 2111760691 0233584 S81.802A patient son reports that she gets wound care at [facility] and she suppose to have calcium alginate and zinc applied to and around left lower extremity wound. He wants this to continue until wound MD can eval.wound MD alarcon and treatwill ordered to cleanse wound with NS apply calcium alginate and zinc ben wound. [id number] TATI CURRIE [address] [address] 01/07/2024 14:10:11 01/10/2024 13:39:22 Open wound of left lower leg 0486723116 3440770 S81.802A patient son reports that she gets wound care at [facility] and she suppose to have calcium alginate and zinc applied to and around left lower extremity wound. He wants this to continue until wound MD can eval.wound MD alarcon and treatwigeovanny ordered to cleanse wound with NS apply calcium alginate and zinc ben wound. Chronic di astolic heart failure 514728108 I50.32 continue lasix 40 mg dailyconti nue potassium 20 meq daily Paroxysmal atrial fibrillation 404902164 I48.0 Cardizem 120 mg dailyconti nue eliquis 2.5 mg BID Type 2 tiara betes mellitus 72432230 E11.9 With some hypoglycem ia.continu e Humulin 70/30 20 units BID and SSI continued. continue fingerstic ks QID Essential hypertension 72513979 I10 BP goal for this elderly woman is permissive HTN, with SBP<150 and DBP<90Cont inue lasix 40 mg qd, hydralazin e 25 mg BID lasix 40 mg dailyMonit or BP and labs. [id number] TATI CURRIE [address] [address] 01/11/2024 10:33:27 01/13/2024 16:16:44 Open wound of left lower leg 9752968130 4607249 S81.802A patient son reports that she gets wound care at [facility] and she suppose to have calcium alginate and zinc applied to and around left lower extremity wound. He wants this to continue until wound can eval.wound MD alarcon and quinton ordered to cleanse wound with NS apply calcium alginate and zinc ben wound. Chronic di astolic heart failure 955555441 I50.32 continue lasix 40 mg dailyconti nue potassium 20 meq daily Paroxysmal atrial fibrillation 144533277 I48.0 Cardizem 120 mg dailyconti nue eliquis 2.5 mg BID Type 2 tiara betes mellitus 51090513 E11.9 With some hypoglycem ia.continu e Humulin 70/30 20 units BID and SSI continued. continue fingerstic ks QID Essential hypertension 42881705 I10 BP goal for this elderly woman is permissive HTN, with SBP<150 and DBP<90Cont inue lasix 40 mg qd, hydralazin e 25 mg BID lasix 40 mg dailyMonit or BP and labs. Anemia 134544292 D64.89 H/H trending down this weekstarte d procrit 10/16 and scheduled for bi weeklyunsu re when she last receivedwi ll follow up with patient son. [id number] TATI CURRIE [place] [address] [facility] [place] [address] 01/13/2024 10:07:39 01/25/2024 10:52:36 Open wound of left lower leg 9832485452 1168388 S81.802A patient son reports that she gets wound care at [facility] and she suppose to have calcium alginate and zinc applied to and around left lower extremity wound. He wants this to continue until wound can eval.wound MD alarcon and quinton ordered to cleanse wound with NS apply calcium alginate and zinc ben wound. Chronic di astolic heart failure 351688012 I50.32 continue lasix 40 mg dailyconti nue potassium 20 meq daily Paroxysmal atrial fibrillation 278374413 I48.0 Cardizem 120 mg dailyconti nue eliquis 2.5 mg BID Type 2 tiara betes mellitus 33343462 E11.9 With some hypoglycem ia.continu e Humulin 70/30 20 units BID and SSI continued. continue fingerstic ks QID Essential hypertension 91124987 I10 BP goal for this elderly woman is permissive HTN, with SBP<150 and DBP<90Cont inue lasix 40 mg qd, hydralazin e 25 mg BID lasix 40 mg dailyMonit or BP and labs. Anemia 728909779 D64.89 HX of normochrom ic normocytic anemiaH/H trending down this week - tends to fluctuates tarted procrit 03555 10/16 and scheduled for bi weeklyRece ived doses on 10/27, 11/10, 11/24, 12/19 and 01/11/24 Bimalleola r fracture of ankle 777373857 S82.841A chronic with [facility] arthropath y with deformity ankle and midfoothx of infection with osteomyeli tis August 2023follow ed by [facility]- last seen on 01/07/24- recommend 2 tx option 1.conserva tive treatment wit off loading as much as possible, wear heel protector boot.2. Surgical reconstruc tion [id number] TATI CURRIE [address] [address] 01/20/2024 09:44:29 01/25/2024 11:59:00 Open wound of left lower leg 3286008353 5070108 S81.802A continue calcium alginate and zinc left lower extremity woundwound MD alarcon and quinton ordered to cleanse wound with NS apply calcium alginate and zinc ben wound. Chronic di astolic heart failure 059761632 I50.32 stablecont inue lasix 40 mg dailyconti nue potassium 20 meq daily Paroxysmal atrial fibrillation 145767981 I48.0 HR 69Cardizem 120 mg dailyconti nue eliquis 2.5 mg BID Type 2 tiara betes mellitus 67536253 E11.9 With some hypoglycem ia.continu e Humulin 70/30 20 units BID and SSI continued. continue fingerstic ks QID Anemia 753759269 D64.89 HX of normochrom ic normocytic anemiaH/H trending down this week - tends to fluctuates tarted procrit 67554 2/24 and scheduled for bi weeklyRece ived doses on 10/27, 11/10, 11/24, 12/19 and 01/11/24 Bimalleola r fracture of ankle 945622056 S82.841A chronic with [facility] arthropath y with deformity ankle and midfoothx of infection with osteomyeli tis August 2023follow ed by [facility]- last seen on 01/07/24- recommend 2 tx option 1.conserva tive treatment wit off loading as much as possible, wear heel protector boot.2. Surgical reconstruc tion [id number] TATI CURRIE [place] [address] [place] [address] rd [place], [place] [address] 01/25/2024 10:02:09 01/31/2024 15:51:53 Open wound of left lower leg 3435753411 9183026 S81.802A continue calcium alginate and zinc left lower extremity woundwound MD alarcon and quinton ordered to cleanse wound with NS apply calcium alginate and zinc ben wound. Chronic di astolic heart failure 321136579 I50.32 continue lasix 40 mg dailyconti nue potassium 20 meq daily Paroxysmal atrial fibrillation 822771546 I48.0 Cardizem 120 mg dailyconti nue eliquis 2.5 mg BID Type 2 tiara betes mellitus 09084592 E11.9 no recent hypoglycem ic events.con tinue Humulin 70/30 20 units BID and SSI continued. continue fingerstic ks QID Anemia 601642095 D64.89 recent labs stable,HX of normochrom ic normocytic anemiaH/H trending down this week - tends to fluctuates tarted procrit 20209 10/16 and scheduled for bi weeklyRece ived doses on 10/27, 11/10, 11/24, 12/19 and 01/11/24 Bimalleola r fracture of ankle [id number] S82.841A dressing intact, pain is controlled chronic with charcot arthropath y with deformity ankle and midfoothx of infection with osteomyeli tis August 2023foll ed by [facility]- last seen on 01/07/24- recommend 2 tx option 1.conserva tive treatment wit off loading as much as possible, wear heel protector boot.2. Surgical reconstruc tion [id number] TATI CURRIE [address] [address] [place] [address] 01/28/2024 15:29:14 02/01/2024 08:26:24 Open wound of left lower leg [id number] 1137430 S81.802A [facility] with NS apply calcium alginate and zinc ben wound.elev ate left foot/heel when sitting to keep DTI well perfused Chronic di astolic heart failure 331185552 I50.32 continue lasix 40 mg dailyconti nue potassium 20 meq daily Paroxysmal atrial fibrillation 010548367 I48.0 Cardizem 120 mg dailyconti nue eliquis 2.5 mg BID Type 2 taira betes mellitus 98552110 E11.9 no recent hypoglycem ic events.con tinue Humulin 70/30 20 units BID and SSI continued. continue fingerstic ks QID Anemia 594679689 D64.89 recent labs stable,HX of normochrom ic normocytic anemiacont inue procrit 45633 10/16 and scheduled for bi weekly Bimalleola r fracture of ankle 898325871 S82.841A she [facility] was seen on 01/23 and will f/u in 2 weeksconti chadde with current dressing change. 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 Surgical reconstruc tion [id number] TATI CURRIE [address] [facility] [address] [place] [address] 02/01/2024 10:24:39 02/04/2024 08:49:56 Open wound of left lower leg [id number] 7768031 S81.802A continue to cleanse wound with NS apply calcium alginate and zinc ben wound.elev ate left foot/heel when sitting to keep DTI well perfused Chronic di astolic heart failure 157511292 I50.32 continue lasix 40 mg dailyconti nue potassium 20 meq daily Paroxysmal atrial fibrillation 941556712 I48.0 Cardizem 120 mg dailyconti nue eliquis 2.5 mg BID Type 2 tiara betes mellitus 80026778 E11.9 no recent hypoglycem ic events.con tinue Humulin 70/30 20 units BID and SSI continued. continue fingerstic ks QID Anemia 258883983 D64.89 recent labs stable,HX of normochrom ic normocytic anemiacont inue procrit 48251 10/16 and scheduled for bi weekly Bimalleola r fracture of ankle 093035835 S82.841A [facility] was seen on 01/23 and will f/u in 2 weeksconti nue with current dressing change. 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 Surgical reconstruc tion Chronic ki dney disease 379517085 N18.32 monitor labsavoid nephrotoxi c meds Essential hypertension 95801007 I10 blood pressure has been stable 120-130sBP goal for this elderly woman is permissive HTN, with SBP<150 and DBP<90Cont inue lasix 40 mg qd, hydralazin e 25 mg BID lasix 40 mg dailyMonit or BP and labs. Gout 70066708 M10.09 allopurino l 100 mg dailynot reported recent flare up. [id number] TATI CURRIE [address] [facility] [place] [address] 02/04/2024 09:44:41 02/07/2024 14:37:26 Open wound of left lower leg [id number] 2895697 S81.802A continue to cleanse wound with NS apply calcium alginate and zinc ben wound.elev ate left foot/heel when sitting to keep DTI well perfused Chronic di astolic heart failure 260890451 I50.32 euvolemicc ontinue lasix 40 mg dailyconti nue potassium 20 meq daily Paroxysmal atrial fibrillation 063928220 I48.0 Cardizem 120 mg dailyconti nue eliquis 2.5 mg BID Type 2 tiara betes mellitus 13804967 E11.9 BGLs mainly under 200's, a few noted in the 400s. patient and son are very particular about insulin dosing, so will not adjust.con tinue Humulin 70/30 20 units BID and SSI continued. continue fingerstic ks QID Anemia 373348806 D64.89 continue procrit 63452 10/16 and scheduled for bi weekly Bimalleola r fracture of ankle 296544012 S82.841A [facility] on 01/23 and [...] protector boot.2. Surgical reconstruc tion Essential hypertension 53373722 I10 BP goal for this elderly woman is permissive HTN, with SBP<150 and DBP<90Cont inue lasix 40 mg qd, hydralazin e 25 mg BID lasix 40 mg dailyMonit or BP and labs. [id number] TATI CURRIE AMELIA [address] [place] [address] 02/07/2024 11:53:48 02/09/2024 16:49:24 Open wound of left lower leg [id number] 8899573 S81.802A continue to cleanse wound with NS apply calcium alginate and zinc ben wound.elev ate left foot/heel when sitting to keep DTI well perfused Chronic di astolic heart failure 466397183 I50.32 continue lasix 40 mg dailyconti nue potassium 20 meq daily Paroxysmal atrial fibrillation 268554483 I48.0 Cardizem 120 mg dailyconti nue eliquis 2.5 mg BID Type 2 tiara betes mellitus 55225108 E11.9 continue Humulin 70/30 20 units BID and SSI continued. continue fingerstic ks QID Anemia 051589066 D64.89 continue procrit 53732 224 and scheduled for bi weekly Essential hypertension 36574814 I10 Continue lasix 40 mg qd, hydralazin e 25 mg BID lasix 40 mg dailyMonit or BP and labs. [id number] TATI CURRIE [address] [address] 02/10/2024 09:22:17 02/16/2024 10:42:27 Open wound of left lower leg [id number] 7581316 S81.802A continue to cleanse wound with NS apply calcium alginate and zinc ben wound. PCC updatedele vate left foot/heel when sitting to keep DTI well perfused Chronic di astolic heart failure 947858740 I50.32 continue lasix 40 mg dailyconti nue potassium 20 meq daily Paroxysmal atrial fibrillation 289357955 I48.0 Cardizem 120 mg dailyconti nue eliquis 2.5 mg BID Type 2 tiara betes mellitus 75810998 E11.9 continue Humulin 70/30 20 units BID and SSI continued. continue fingerstic ks QIDno reported hypo/hyper glycemic events. Essential hypertension 71247111 I10 Continue lasix 40 mg qd, hydralazin e 25 mg BID lasix 40 mg dailyMonit or BP and labs. [id number] Janee Davis MD [address] [address] 02/14/2024 21:04:27 03/14/2024 07:28:32 Chronic diastolic heart failure 951216503 I50.32 Appears euvolemic. Continue lasix 40 mg qd and KCl 20 meq qd to prevent hypokalemi a.Monitor resp. status, fluid status, wts and labs. Paroxysmal atrial fibrillation 020569645 I48.0 Rate in good control on meds as above.Cont inue eliquis 2.5 mg BID for AC.Monitor HR and bleeding risk. Type 2 tiara betes mellitus 69792163 E11.9 In adequate control.Co ntinue Humulin 70/30 20U BID and SSIContinu e fingerstic ks QID Essential hypertension 05589552 I10 In good control.Co ntinue lasix 40 mg qd, hydralazin e 25 mg BID, diltiazem 120 mg qd, and lasix 40 mg qdMonitor BP and labs. 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 Essential hypertension 21502119 I10 Continue lasix 40 mg qd, hydralazin e 25 mg BID lasix 40 mg dailyMonit or BP and labs. Chronic di astolic heart failure 536783843 I50.32 continue lasix 40 mg dailyconti nue potassium 20 meq daily Paroxysmal atrial fibrillation 338258112 I48.0 Cardizem 120 mg dailyconti nue eliquis 2.5 mg BID Type 2 tiara betes mellitus 56515727 E11.9 continue Humulin 70/30 20 units BID and SSI continued. continue fingerstic ks QIDno reported hypo/hyper glycemic events. Chronic ki dney disease 733872787 N18.32 Back to baseline.C ontinue to avoid nephrotoxi c meds as able.Monit or labs.Renal consult prn. Closed bim alleolar fracture of right ankle 6774479594 0995115 S82.841D Continue APAP 1000 mg q 4 hrs prn, NTE 3000 mg/dContin ue fall precaution s.Monitor for safety.F/U with ortho Gastroesop hageal reflux disease without esophagitis 604189003 K21.9 Continue omeprazole 20 mg qd Gout 29348595 M10.09 Continue allopurino l 100 mg qdMonitor for flare. Hyperlipidemia 83563742 E78.49 Continue fenofibrat e 160 mg qdMonitor as outpt. Hypothyroidism 19226295 E03.8 not on medsTSH WNL inpt.Monit or as outpt Hypomagnesemia 583334931 E83.42 Continue Mg+ 400 mg BID.Monito r levels Vitamin D deficiency 347 43230 E56.8 ergocalcif denisse 50,000 IU qdMonitor levels Anemia 446671376 D64.89 Multifacto rial.justo nue procrit 47439 bi weekly Health Concerns Section Related Observation LastModified by Organization Detai ls LastModified Time None Recorded Concern Status LastModified by Organization Details LastModified Time None Recorded Advance Directives Directive Y: Payers Insurance Date Sequence Insurance Name Policy Number Policy Bravo Covered Member ID [id number] Member ID Guarantor Name 01/25/2024 1 [place] [employer] Susan Laurent [id number] Susannicolas Rodríguezchiki 03/14/2024 2 [place] [id number] Susan Rodríguezchiki [id number] Susan Rodríguezchiki Notes Date Note Type [...] broke her right ankle, most recently at [facility] for a CHF exacerbation.She initially presented to the [facility] on 11/26 after an unknown [...] started on diltiazem and apixaban.Returned to [facility] on 12/13, several days after d/c from [facility], because of difficulty ambulating at home and unable to help her due to his own issues. D/C on 12/15 to [facility].Was sent to the [facility] ED on 12/17 because of SOB and [...] no acute nursing concerns. TATI CURRIE [address] [facility], [address], [place], [address], [employer] 02/04/2024 11:01:05 02/07/2024 text/html ROS as noted [...] broke her right ankle, most recently at [facility] for a CHF exacerbation.She initially presented to the [facility] on 11/26 after an unknown [...] started on diltiazem and apixaban.Returned to [facility] on 12/13, several days after d/c from [facility], because of difficulty ambulating at home and unable to help her due to his own issues. D/C on 12/15 to [facility].Was sent to the [facility] ED on 12/17 because of SOB and AMS.Labs and vitals were WNL (except Na+147 and BNP 222) CXR showed pulmonary edema with small pleural effusions. Neg for RSV/influenza and covid.EKG showed NSR and she was continued on diltiazem and apixaban.She was txed with IV lasix and K+A left dhillon wound was followed by wound care. TATI CURRIE [address] [facility], [address], [place], [address], [facility] [employer] 02/07/2024 14:37:38 02/10/2024 text/html ROS as noted [...] and s/p MSSA sepsis. TATI CURRIE [address] [facility], [address], [place], [address], [facility] [employer] 02/10/2024 12:44:47 02/14/2024 text/html I am seeing this 88 yo woman for an acute visit today to f/u on RLE fx, ulcers and NWB status.Son has had concerns about mother refusing wound care and this is being addressed by nursing staff.She was seen at the [facility] wound clinic on 02/06 and it was [...] s/p MSSA sepsis. Janee Davis MD [address] [facility], [address], [place], [address], [employer] 03/11/2024 19:10:29 02/18/2024 text/html This is an 88 yo woman due for discharge today. Patient has been in and out of rehabs and hosp since 11/26 when she broke her right ankle, most recently at [facility] for a CHF exacerbation.She initially presented to the [facility] on 11/26 after an unknown [...] started on diltiazem and apixaban.Returned to [facility] on 12/13, several days after d/c from [facility], because of difficulty ambulating at home and unable to help her due to his own issues. D/C on 12/15 to [facility].Was sent to the [facility] ED on 12/17 because of SOB and AMS.Labs and vitals were WNL (except Na+147 and BNP 222) CXR showed pulmonary edema with small pleural effusions. Neg for RSV/influenza and covid.EKG showed NSR and she was continued on diltiazem and apixaban.She was txed with IV lasix and K+A left dhillon wound was followed by wound care.She was transferred to [facility] on [place] was done on 12/23 [...] and s/p MSSA sepsis. TATI CURRIE [address] [facility], [address], [place], [address], [facility] [employer] 02/18/2024 14:26:35 OBGyn Episode No OBEpisode recorded.
--- OUTSIDE RECORDS SUMMARY | 2025-06-19 16:12 | XMS_ITS | Clinical Summary ---
Author Organization [facility] Address [address] [place] [phone] Phone Care Team Providers Care Certified Respiratory Therapist Name Role Phone Unknown, Unknown Primary Care [...] MEDEX SUPPLEMENT MEDICARE PART A & B Member Subscriber Plan / Payer (Ef fective 2000-Present) Name:Susan Laurent Member ID:[id number] Relation to Subscriber:Self Name:Susan Laurent Subscriber ID:[id number] Payer ID:[id number] Group ID:Not on file Type:Medicare Address: [facility] [address] [place] [address] [facility] FULL MEDEX SUPPLEMENT MEDICARE PART A & B Member Subscriber Plan / Payer (Ef fective 2000-Present) Name:Mehran Susan Member ID:[id number] Relation to Subscriber:Self Name:MarcosterriSusan palmer Subscriber ID:[id number] Payer ID:[id number] Group ID:Not on file Type:Medicare Address: [facility] [address] [place] [address] [employer] FULL MEDEX SUPPLEMENT MEDICARE PART A & B HE[employer] NET FULL [employer] MEDEX SUPPLEMENT MEDICARE PART A & B [facility] FULL [employer] MEDEX SUPPLEMENT MEDICARE PART A & B [facility] FULL MEDEX SUPPLEMENT MEDICARE PART A & B Member Subscriber Plan / Payer (Ef fective 2000-Present) Name:MarcosterriSusan palmer Member ID:[id number] Relation to Subscriber:Self Name:Mehran Susan Subscriber ID:[id number] Payer ID:[id number] Group ID:Not on file Type:Medicare Address: [facility] [address] [place] [address] [employer] FULL MEDEX SUPPLEMENT MEDICARE PART A & B Member Subscriber Plan / Payer (Ef fective 2000-Present) Name:Susan Laurent Member ID:[id number] Relation to Subscriber:Self Name:Susan Laurent Subscriber ID:[id number] Payer ID:[id number] Group ID:Not on file Type:Medicare Address: [facility] [address] [place] [address] [employer] FULL [employer] MEDEX SUPPLEMENT MEDICARE PART A & B [facility] FULL [employer] [place] MEDEX SUPPLEMENT MEDICARE PART A & B [facility] FULL Care Teams Certified Respiratory Therapist Relationship Specialty Start Date End Date Unknown, Unknown, PCP - General 12/21/18 Additional Source Comments The information contained in this document represents components of the legal health record. It is not the complete legal health record.[facility]
--- OUTSIDE RECORDS SUMMARY | 2025-06-19 16:12 | XMS_ITS | Patient Health Record ---
Author Organization [facility] Address [address] [place] [address] Care Team Providers Care Supervisor Benzene Refining Name Role Phone PriceWilber [phone] Reason For Referral No Information Plan Of Treatment No Information
== END ==
LOC: HO.CARD 12:49
PROVIDERS: Visit Provider Nurse Practitioner Family
DX: I48.91 Unspecified atrial fibrillation (principal); I50.9 Heart failure, unspecified
CPT/HCPCS: 93306

== ENCOUNTER → 2025-06-19 12:53 | Outpatient (BNV) | payer MEDICARE, SELFPAY | PROVIDERS: Visit Provider Internal Medicine | DX: I48.91 Unspecified atrial fibrillation (principal); I34.81 Nonrheumatic mitral (valve) annulus calcification | CPT/HCPCS: 93306 ==

== ENCOUNTER 2025-06-28 12:32 | Outpatient (AMB) | payer MEDICARE, SELFPAY ==
[2025-06-28 12:36] VITALS: BP 174/82; PULSE 77; O2SAT 95
--- NOTE | 2025-06-28 12:36 | A.OFFVIS_ITS ---
Vital Signs 3 06/28/25 12:36 Height 5 ft 5 in BMI Reason not done Patient refused/unable BP 174/82 H Blood Pressure Location Rt brachial Position Sitting Pulse 77 Pulse Source Pulse Oximeter Pulse Oximetry (%) 95 Oxygen Delivery Method Room Air Intake Visit Reasons: Dm2 Intake Note: Patient presents today to establish treatment for Type 2 Diabetes Mellitus: Last Diabetic eye exam was on: 07/25/24, [facility] Last Podiatry exam was on: Patient does not see a Soil Checker Most recent HbA1c: 6.2%, 04/11/2025 Random Glucose: 150 mg/dL Skein Mercerizing Machine Operator Required: No Accompanied by: Son Allergies codeine (CODEINE) Allergy (Intermediate, Verified 06/28/25 12:44) BACK PAIN pollen extracts (POLLEN) Allergy (Mild, Verified 06/28/25 12:44) SINUS IRRITATION metoprolol Adverse Reaction (Intermediate, Verified 06/28/25 12:44) Hallucinations Medication List - Last Reconciled 06/28/25 by Yas Guadalupe MD acetaminophen 500 mg PO Q4H PRN [Acucheck glucose monitor As directed Check blood sugar two times a day] [Acucheck test strips As directed check blood sugar two times a day] allopurinol 100 mg PO DAILY apixaban (Eliquis) 2.5 mg PO BID blood sugar diagnostic (Accu-Chek Radha Plus test strips) As directed Check blood sugar tid blood-glucose meter As directed Check blood sugar three times a day blood-glucose sensor (FreeStyle Jr 3 Sensor device) To measure BG 4-6 times per day blood-glucose,civil engineering designer,cont (FreeStyle Jr 3 Mason) As directed diltiazem HCl CD 120 mg PO DAILY empagliflozin (Jardiance) 10 mg PO DAILY ergocalciferol (vitamin D2) 1,250 mcg PO Q14D fenofibrate 160 mg PO DAILY hydralazine 50 mg PO BID 90 days insulin glargine (Lantus Solostar U-100 Insulin) 20 units (0.2 mL) subcut QAM insulin lispro (Admelog SoloStar U-100 Insulin lispro) 8 units (0.08 mL) subcut TID lancets (Microlet Lancet) As directed multivitamin 1 tab PO DAILY omeprazole 20 mg PO DAILY@0630 HPI Comments Details: 89 years old female with past medical history of type 2 diabetes, vitamin-D deficiency, CKD stage 4, heart failure, cardiomyopathy, atrial fibrillation, seen in the office for evaluation and management of type 2 diabetes. The patient was diagnosed with Type 2 Diabetes Mellitus at the age of 56. She is currently 89 years old. Initially started treatment with Metformin but transitioned to insulin due to kidney issues. Currently on 70/30 Humulin insulin twice a day with a sliding scale at night (5 to 25 units). A1c is currently at 6.2%, which is considered overly controlled for her age, although this is likely an underestimation given that the patient have anemia secondary to CKD She experiences blood glucose spikes to 200-300 mg/dL after eating but does not frequently experience hypoglycemia. Complications include kidney disease and a history of Charcot foot due to diabetes. Current Medications: - 70/30 Humulin insulin twice daily with a sliding scale at night. - Previously on Metformin but discontinued due to kidney issues. Blood Sugar monitoring: - Blood glucose is checked twice daily with current meter limitations. - Recent blood glucose levels mentioned: 121 mg/dL in the morning, 250 mg/dL post-meal. Hypoglycemia: - No recent incidences of hypoglycemia noted. - Uses orange juice for management if necessary. Macrovascular/microvascular Complications: No history of CVA, ME or PVD Patient has history of CKD stage 4, denies history of neuropathy or retinopathy Diet and Exercise: - No specific diet or exercise routine noted in the conversation. Specialist Visits: - Regular follow-ups with a watershed manager for atrial fibrillation. - History of podiatric issues with a recent surgery involving a titanium erick. Interval history 06/28/25 They report that her ERNESTO has been high for the last for days. They question if the Jardiance or Lantus could be causing her high blood preasure They also noticed that her BG has been high since the change from 70/30 to Lantus and Jardiance. She also complains of dizziness and feeling like fianting when her BG is high Physical exam General: Well appearing. NAD. Sitting in the wheelchair Neck/Thyroid: Thyroid not palpable, no nodules. CV: RRR, no murmur. Edema present in both lower extremities Resp:Lungs clear to auscultation bilaterally Abdomen: Soft, nontender. nondistended Extremities/Neuro: No tremor of outstretched hands. Charcot foot deformity of right foot Labs Laboratory Tests 04/11/25 06/05/25 06/12/25 11:40 11:09 14:38 WBC 6.7 Hgb 10.6 L Sodium 143 Potassium 4.2 Creatinine 2.23 H Estimated GFR 21 Glucose (Clinic) 150 H Hemoglobin A1c % 6.2 H Calcium 9.4 Albumin 3.6 HDL Cholesterol 40 L 25-OH Vitamin D Total 26.8 L TSH 1.25 CGM/Glucose logs Jun 2 - 10:30pm 362 Jun 3 - 10:30am 306 2:10pm 286 Jun 4 - 9:30am 219 11pm 240 Nov 5 11am 137 12:15am 318 PFSH Medical History Lymphedema Diabetes mellitus BARB (acute kidney injury) Diabetes mellitus with coincident hypertension Hyperlipidemia CKD (chronic kidney disease) stage 4, GFR 15-29 ml/min Atrial fibrillation Osteomyelitis Gout Anemia Hx of type A viral hepatitis Obesity Surgical History History of foot surgery History of surgical removal of skin lesion History of biopsy History of excision of lesion H/O varicose vein ligation History of cholecystectomy Family History Father Gastric cancer Mother Acute CVA (cerebrovascular accident) Diabetes Brother Colon cancer Social History Household Members: Family Household Members Other:: sonvivek Housing: House Do you presently have visiting nurse or other home services: No Alcohol intake: never Patient Tobacco Use Status: Never used Tobacco e-Cigarette/Vaping Use: Never Used Second Hand Smoke Exposure: No Advance Directives Date on File: 07/16/21 service: No Current occupational status: retired Cognitive needs: Yes (walker ) Hearing needs: No Vision needs: Yes Physical Exam Vital Signs: Last Vital Signs Pulse 77 06/28/25 12:36 BP 174/82 H 06/28/25 12:36 Pulse Ox 95 06/28/25 12:36 Oxygen Delivery Method Room Air 06/28/25 12:36 Results Reviewed Results Reviewed: Laboratory Last Values Glucose (Clinic) 150 mg/dL (60-115) H 06/28/25 12:41 Assessment & Plan Assessment & Plan (1) Diabetes mellitus: Code(s): E11.9 - Type 2 diabetes mellitus without complications Category: Medical Qualifiers: Diabetes mellitus type: type 2 Diabetes mellitus mcfp insulin use: without petroleum terminal plant operator use Diabetes mellitus complication status: with other specified complication Qualified Code(s): E11.69 - Type 2 diabetes mellitus with other specified complication Plan: Elderly female patient with type 2 diabetes, have been for many years on mixed insulin, which increases her risk for hypoglycemia. Current glycaemic control is difficult to assess as patient has anemia of chronic disease, with rends her A1c of 6.2% not reliable. After a long discussion of pros and cons, patient agreed to transition to a different type of insulin. Given all main concern for hypoglycemia, we will also able to I agreed that the patient could use a CGM. After discuss pros and cons, patient agreed that we should aim for a goal A1c of 7-8%. After her transition from 70/30 to Lantus and jardiance, she has been noticed to be hyperglycemic, specially after meals and at night. Plan - Continue Lantus 24 units daily in the morning - Continue Jardiance 10 mg in the morning for kidney protection and glucose control. - Add Lispro SS as in pt instructions - Consider Ozempic if further intervention is needed. - Continue regular blood sugar monitoring and encourage the use of a continuous glucose monitor (CGM) for better management. - Educate patient and caregiver on hypo- and hyperglycemia management. - Reinforce the importance of regular foot checks and follow-up with specialists. - For hypoglycemia (<70 mg/dL): Consume 15g of carbohydrates and recheck in 15 minutes. - For hyperglycemia (>250 mg/dL): Monitor closely, hydrate, and contact the provider if symptoms like nausea or rapid breathing occur. - Educate on the new insulin regimen and ensure understanding of the importance of not skipping doses. Medications: New 2 insulin lispro (Admelog SoloStar U-100 Insulin lispro) Use insulin 8 units TID 8 units (0.08 mL) subcut TID 15 mL 3RF E11.69 - Type 2 diabetes mellitus with other specified complication, E11.9 - Type 2 diabetes mellitus without complications, Z79.4 - [facility] (current) use of insulin Patient Instructions: Continue Lantus 24 units Continue Jardiance 10 mg daily Start Lispro insulin based on the scale below Take Lispro 15 mins before you eat Coding Level of Care Code Est Pt Level 3 (36684) Diagnoses Type 2 diabetes mellitus with other specified complication, without long-term current use of insulin E11.69 Diabetes mellitus type: type 2 Diabetes 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
[2025-06-28 12:45] LABS: Glucose, Whole Blood 150 mg/dL (60-115)
--- OUTSIDE RECORDS SUMMARY | 2025-06-28 15:23 | XMS_ITS | Clinical Summary ---
Author Organization [address] [facility] Address [address] [place] [address] Phone Care Team Providers Care Labor Union Business Representative Name Role Phone Christopher Zamudio MD Primary Care Provider [phone] Surgical History Surgery Date Site/Laterality Comments CHOLECYSTECTOMY [...] (HCC); COMMENT: [facility]. 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
--- OUTSIDE RECORDS SUMMARY | 2025-06-28 15:23 | XMS_ITS | Data Portability ---
Author Organization [facility], Main Office Address [address] [address] [address] [place] [address] Care Team Providers Care Cancer Registrar Name Role Phone TISHA MANZO Primary Care [...] Address Organization Details Recorded Time Bacteremi a 6368295 Active 2022 MSSA foot infection Not Available [facility] 4 02:47:47 Type 2 diabetes mellitus 97845676 Active 2022 Not Available [facility] 4 02:47:47 Hypothyro idism 07600785 Active 2022 Not Available [facility] 4 02:47:47 Chronic kidney disease 275600691 Active 2022 Not Available [facility] 4 02:47:47 Gout 50245158 Active 2022 Not Available [facility] 4 02:47:47 Gastroeso phageal reflux disease without esophagit is 003735178 Active 2022 Not Available [facility] 4 02:47:47 Hyperlipi demia 90589676 Active 2022 Not Available [facility] 4 02:47:47 Essential hypertens ion 30856311 Active 2022 Not Available [facility] 4 02:47:47 Hypomagne semia 998367609 Active 2023 Not Available [facility] 4 02:47:47 Vitamin D deficienc y 09087691 Active 2023 Not Available [facility] 4 02:47:47 Chronic diastolic heart failure 766470452 Active 2023 Janee Dvais MD [address] [facility], [facility] [address], [place], [address] , [employer] 4 10:48:17 Anemia 695370177 Active 2023 Janee Davis MD [address] [facility], [address], [place], [address] , [employer] 4 11:10:38 Bimalleol ar fracture of ankle 826771457 Active 2023 TATI CURRIE [address] [facility], [facility] [address], [place], [address] , [facility] [employer] 4 14:06:55 Stasis dermatiti s and 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 Please review this document and add these problems to the patient's chart manually as needed. Problem Notes None recorded. Medical Equipment None Reported. Allergies Allergen ID Allergen Name Allergen Category Reaction Reaction Severity Criticality Documentation Date Start Date Code Code System Note Provider Name and Address Organization Details Recorded Time 73218 codeine medicatio n Not available Not available Not available 08/20/2023 2670 RxNorm ALVARADO DEL CID NP [address] [facility], [address], [place], [address], [employer] 3 10:53:18 Vitals Date Recorded Body height Heart rate Respiratory rate Body temperature Systolic And Diastolic Provider Name and Address Organization Details Last Updated DateTime 4 170.18 cm 80 /min 16 /min 98 [degF] 129/78 mm[Hg] TATI CURRIE [address] [facility], [address], [place], [address], [employer] 4 10:52:49 Date Recorded Body height Body temperature Respiratory rate Heart rate Systolic And Diastolic Provider Name and Address Organization Details Last Updated DateTime 4 170.18 cm 97.3 [degF] 18 /min 68 /min 122/68 mm[Hg] TATI CURRIE [address] [facility], [address], [place], [address], [employer] [facility] 4 14:33:03 Date Recorded Body height Heart rate Respiratory rate Body temperature Systolic And Diastolic Provider Name and Address Organization Details Last Updated DateTime 4 170.18 cm 74 /min 18 /min 98 [degF] 132/74 mm[Hg] TATI CURRIE [address] [facility], [address], [place], [address], [employer] 4 12:19:44 Date Recorded Body height Body mass index (BMI) Body weight Heart rate Respiratory rate Body temperature Oxygen saturation Oxygen saturation in Arterial blood by Pulse oximetry Systolic And Diastolic Provider Name and Address Organization Details Last Updated DateTime 4 170.18 cm 31.6 kg/m2 09209.6 6 g 79 /min 18 /min 97.4 [degF] 100 % 100 % 141/75 mm[Hg] Janee Davis MD [address] [facility], [address], [place], [address], [employer] 4 21:07:19 Date Recorded Body height Heart rate Respiratory rate Body temperature Oxygen saturation Oxygen saturation in Arterial blood by Pulse oximetry Systolic And Diastolic Provider Name and Address Organization Details Last Updated DateTime 4 170.18 cm 79 /min 18 /min 98 [degF] 100 % 100 % 141/75 mm[Hg] TATI CURRIE [address], [address], [place], [address], [employer] [facility] 4 14:26:02 Social History Question Answer Notes LastModified by [employer] Details LastModified Time Tobacco Smoking Status Never Smoker ALVARADO DEL CID NP [address], [address], [place], [address], [employer] [facility] 08/20/2023 11:16:58 Do You Have An Advance Directive? Yes Information not available 08/20/2023 What Is Your Code Status? Full Code Information not available 08/20/2023 Where Do You Live? SingleLevelHouse Lives With Son, 3-4 Steps To Enter Information not available 08/24/2023 Legal Guardian? No Informati on not available 08/24/2023 Do You Have A Medical Power Of Heel Former? Yes Information not available 08/24/2023 What Was [...] Functional Status Question Answer Note LastModified by [employer] Details LastModified Time Do you use any [...] adjuvanted, quadrivalent, PF 3 completed Not Available [facility] 09/30/2023 02:47:47 Td(adult) unspecified formulation 1 completed [facility] 12/28/2023 16:20:20 SARS-COV-2 (COVID-19) vaccine, UNSPECIFIED 1 completed [facility] 12/28/2023 16:20:43 SARS-COV-2 (COVID-19) vaccine, UNSPECIFIED 1 completed [facility] 12/28/2023 16:20:50 pneumococcal polysaccharide PPV23 1 completed [facility] 12/28/2023 16:21:57 SARS-COV-2 (COVID-19) vaccine, UNSPECIFIED 1 completed [facility] 12/28/2023 16:22:45 Past Encounters Encounter ID Performer Location Encounter Start Date Encounter Closed Date Diagnosis/Indication Diagnosis SNOMED-CT Code Diagnosis ICD10 Code Diagnosis IMO Codes Diagnosis Note [id number] SCOTT NOBLES [address] [place] [address] 08/20/2023 09:52:59 08/31/2023 13:27:41 Bacteremia 0364976 R78.81 flush picc qshiftcefa zolin 1 gm bid to 2/2followu p with vascular as planned Type 2 tiara betes mellitus 19780307 E11.9 humulin/re g 70/30 50 units bidmonitor glucose Chronic ki dney disease 060150738 N18.9 monitor labsavoid nephrotoxi c meds Gastroesop hageal reflux disease without esophagitis 119990445 K21.9 mag ox 400 mg daily to 18omepraz ole 20 mg daily Gout 06124318 M10.9 allopurino l 100 mg dailyD3 1250 [id number] Hyperlipidemia 67214278 E78.5 fenofibrat e 160 mg daily Hypothyroidism 45454913 E03.9 hx of Essential hypertension 26056887 I10 lasix 20 mg dailyhydra lazine 25 mg bidtoprol 25 mg dailymonit or bplisinopr il stopped in hospital [id number] ALVARADO DEL CID NP [address] [place] [address] 08/24/2023 13:44:02 08/25/2023 03:52:21 Type 2 diabetes mellitus 50141165 E11.9 humulin/re g 70/30 50 units bidmonitor glucose Bacteremia 4186794 R78.8 1 flush picc qshiftcefa zolin 1 gm bid to 2/2followu p with vascular as planned [id number] Janee Davis MD [address] [place] [address] 08/24/2023 15:18:19 08/31/2023 14:10:55 Type 2 diabetes mellitus 95208195 E11.9 With some hypoglycem ia.Humulin 70/30 was lowered from 50 units BID to 25U BID and SSI continued. Monitor fingerstic ks, will change from TID to qid, with low dose SS at hs.HgA1C was 6.7 inpt. Bacteremia 4697352 R78.8 1 As above Osteomyeli tis of right foot 2184737009 219814 M86.271 S/P I&D and debridemen t. Vasc. surgeon (Dr. Friedman) felt that all diseased bone was removed.Co ntinue cefazolin 1 gm IV BID until 09/24 to complete 6 wk course.Con tinue wound care as ordered.F/ U with Dr. Friedman as planned. Chronic ki dney disease 425565919 N18.32 Back to baseline.C ontinue to avoid nephrotoxi c meds as able.Monit or labs.Renal consult prn. Gastroesop hageal reflux disease without esophagitis 437746184 K21.9 No current sxs.Contin ue omeprazole 20 mg qdMonitor sxs. Gout 32902897 M10.09 No current sxs.Contin ue allopurino l 100 mg qdMonitor for flare. Hyperlipidemia 79822269 E78.49 Continue fenofibrat e 160 mg qdMonitor as outpt. Hypothyroidism 01569905 E03.8 In hx.TSH WNL in 11/2022Moni tor as outpt Essential hypertension 71618409 I10 BP borderline at times, but acceptable for age.BP goal for this elderly woman is permissive HTN, with SBP<150 and DBP<90Cont inue lasix 20 mg qd, hydralazin e 25 mg BID and metoprolol 25 mg qd.Monitor BP and labs.No need to restart lisinopril at this time Hypomagnesemia 216322109 E83.42 Continue Mg+ 400 mg qd until 08/30, then recheck level Vitamin D deficiency 347 69683 E55.9 Continue ergocalcif denisse 50,000 IU every 14 days.Monit or levels [id number] [facility] [address] [place] [address] 08/31/2023 11:38:57 09/08/2023 12:37:11 Bacteremia 8675766 R78.81 continuece fazolin 1 gm bid to 2ollow up with vascular Type 2 tiara betes mellitus 71002384 E11.9 200-280's mainlyhumu mahesh/reg 70/30 50 units bidmonitor glucose Chronic ki dney disease 703007162 N18.9 monitor labsavoid nephrotoxi c meds Gastroesop hageal reflux disease without esophagitis 983821659 K21.9 mag ox 400 mg daily to 08/30omepraz ole 20 mg daily Gout 33874644 M10.9 allopurino l 100 mg dailyD3 1250 s69errg Hyperlipidemia 63211516 E78.5 fenofibrat e 160 mg daily Hypothyroidism 66898962 E03.9 hx of Essential hypertension 16542689 I10 lasix 20 mg dailyhydra lazine 25 mg bidtoprol 25 mg dailymonit or bplisinopr il stopped in hospital [id number] TATI CURRIE [facility] [address] [place] [address] 09/02/2023 09:40:27 09/08/2023 13:38:51 Bacteremia 4050657 R78.81 continueMS SA right footcefazo mahesh 1 gm bid to 22follow up with vascular Type 2 tiara betes mellitus 67438260 E11.9 200-280's mainlychan ged back to humulin/re g 70/30 50 units bidmonitor glucose Osteomyeli tis of right foot 8320810413 734037 M86.271 S/P I&D and debridemen t. Vasc. surgeon (Dr. Friedman) felt that all diseased bone was removed.Co ntinue cefazolin 1 gm IV BID until 2 to complete 6 wk course.Con tinue wound care as ordered.F/ U with Dr. Friedman as planned. Edema of l ower extremity 182718425 R60.0 chronic BLEright greater than left [id number] TATI CURRIE [address] [address] 09/07/2023 13:02:41 09/13/2023 15:17:43 Bacteremia 6192025 R78.81 continueMS SA right footcefazo mahesh 1 gm bid to ollow up with vascular Type 2 tiara betes mellitus 80131983 E11.9 lispro SSChumulin /reg 70/30 50 units bidmonitor glucose Osteomyeli tis of right foot 3093187310 669603 M86.271 S/P I&D and debridemen t. Vasc. surgeon (Dr. Friedman) felt that all diseased bone was removed.Co ntinue cefazolin 1 gm IV BID until 09/24 to complete 6 wk course.Con tinue wound care as ordered.F/ U with Dr. Friedman as planned. Edema of l ower extremity 369591975 R60.0 chronic BLEright greater than left [id number] TATI CURRIE [address] [address] 09/10/2023 06:52:27 09/15/2023 13:31:46 Bacteremia 4603378 R78.81 continueMS SA right footcefazo mahesh 1 gm bid to ollow up with vascular Type 2 tiara betes mellitus 39309884 E11.9 I spoke with patient today. previously [...] bidmonitor glucose Osteomyeli tis of right foot 6570969314 539518 M86.271 S/P I&D and debridemen t. Vasc. surgeon (Dr. Friedman) felt that all diseased bone was removed.Co ntinue cefazolin 1 gm IV BID until 2/2 to complete 6 wk course.Con tinue wound care as ordered.F/ U with Dr. Friedman as planned. Edema of l ower extremity 634569150 R60.0 chronic BLEright greater than left [id number] TATI CURRIE [address] [place] [address] 09/14/2023 07:53:08 09/17/2023 08:57:48 Bacteremia 2453526 R78.81 continueMS SA right footcefazo mahesh 1 gm bid to 2/2follow up with vascular Type 2 tiara betes mellitus 64347361 E11.9 I spoke with patient today. previously [...] bidmonitor glucose Osteomyeli tis of right foot 2844638057 641615 M86.271 S/P I&D and debridemen t. Vasc. surgeon (Dr. Friedman) felt that all diseased bone was removed.Co ntinue cefazolin 1 gm IV BID until 2/2 to complete 6 wk course.Con tinue wound care as ordered.F/ U with Dr. Friedman as planned. Edema of l ower extremity 894765221 R60.0 chronic BLEright greater than left [id number] TATI CURRIE [address] [address] 09/17/2023 08:23:28 09/22/2023 11:50:26 Bacteremia 4933789 R78.81 continueMS SA right footcefazo mahesh 1 gm bid to 2/2follow up with vascular Type 2 tiara betes mellitus 46239320 E11.9 lispro SSChumulin /reg 70/30 30 units bidmonitor glucose Osteomyeli tis of right foot 2041954602 117846 M86.271 S/P I&D and debridemen t. Vasc. surgeon (Dr. Friedman) felt that all diseased bone was removed.Co ntinue cefazolin 1 gm IV BID until 2 to complete 6 wk course.Con tinue wound care as ordered.F/ U with Dr. Friedman as planned. Edema of l ower extremity 757434733 R60.0 chronic BLEright greater than left [id number] TATI CURRIE [address] [address] 09/21/2023 07:59:18 09/29/2023 08:59:51 Bacteremia 0887541 R78.81 continueNY SA right footcefazo mahesh 1 gm bid to 2/ollow up with vascular Type 2 tiara betes mellitus 90109531 E11.9 lispro SSChumulin /reg 70/30 30 units bidmonitor glucose Osteomyeli tis of right foot 3243303775 394534 M86.271 S/P I&D and debridemen t. Vasc. surgeon (Dr. Friedman) felt that all diseased bone was removed.Co ntinue cefazolin 1 gm IV BID until 09/24 to complete 6 wk course.Con tinue wound care as ordered.F/ U with Dr. Friedman as planned. Edema of l ower extremity 641308949 R60.0 chronic BLEright greater than left [id number] TATI CURRIE [address] [address] 09/24/2023 12:21:41 09/29/2023 13:31:08 Bacteremia 5666906 R78.81 resolved Type 2 tiara betes mellitus 65617706 E11.9 humulin/re g 70/30 50 units bid Chronic ki dney disease 069721648 N18.9 monitor labsavoid nephrotoxi c meds Gastroesop hageal reflux disease without esophagitis 880534230 K21.9 mag ox 400 mg daily to 08/30omepraz ole 20 mg daily Gout 51233175 M10.9 allopurino l 100 mg dailyD3 1250 [id number] Hyperlipidemia 51319662 E78.5 fenofibrat e 160 mg daily Hypothyroidism 27171237 E03.9 TSH WNL in 11/2022Moni tor as outptcurre ntly not on medication . Essential hypertension 58532664 I10 lasix 20 mg dailyhydra lazine 25 mg bidtoprol 25 mg daily Osteomyeli tis of right foot 2306050757 565343 M86.271 S/P I&D and debridemen t. Vasc. surgeon (Dr. Friedman) felt that all diseased bone was removed.co mpleted IV cefazolin 1 gm IV BID 09/24/23Cont inue wound care as ordered.F/ U with Dr. Friedman as planned. Hypomagnesemia 926959794 E83.42 monitor outpt labs Vitamin D deficiency 347 87051 E55.9 Continue ergocalcif denisse 50,000 IU every 14 days.Monit or levels [id number] Janee Davis MD [address] [place] [address] 12/28/2023 15:33:48 01/13/2024 12:52:53 Chronic diastolic heart failure 728417809 I50.32 Appears euvolemic. Continue furosemide 40 mg qd and hydralazin e 25 mg BID.Monito r resp. status, fluid status, wts and labs. Paroxysmal atrial fibrillation 682826657 I48.0 Rate in good control on diltiazem 120 mg qd.Continu e eliquis 5 mg BID for AC.Monitor HR and bleeding risk. Type 2 tiara betes mellitus 95187046 E11.9 This AM FBS was 88. Last time she was here fastings tended to be ok, but with high sugars later in the day.HgA1C was 7.1 this AMContinue Humulin 70/30 20U BID and SSI.Monito r fingerstic ks TID Chronic ki dney disease 737730236 N18.32 Back to baseline.C ontinue to avoid nephrotoxi c meds as able.Monit or labs.Renal consult prn. Essential hypertension 90842324 I10 BP borderline at times, but acceptable for age.BP goal for this elderly woman is permissive HTN, with SBP<150 and DBP<90Cont inue meds as above.Rebeca tor BP and labs. Gastroesop hageal reflux disease without esophagitis 712169022 K21.9 No current sxs.Contin ue omeprazole 20 mg qdMonitor sxs. Gout 80050119 M10.09 No current sxs.Contin ue allopurino l 100 mg qdMonitor for flare. Hyperlipidemia 09081805 E78.49 Continue fenofibrat e 160 mg qdMonitor as outpt. Hypothyroidism 56231294 E03.8 In hx.TSH WNL inpt.Monit or as outpt Hypomagnesemia 922119488 E83.42 Continue Mg+ 400 mg BID.Monito r levels Vitamin D deficiency 347 79051 E56.8 Vit D supplement is ordered as cholecalci ferol 5000 IU every 14 days.Is supposed to be ergocalcif denisse 50,000 IU qd, will change.Mon itor levels Anemia 927584785 D64.89 Multifacto rial.Follo ws with Dr. [place] and gets procrit every few wks (has been irregular due to hospitaliz ations).Mo nitor labs Closed bim alleolar fracture of right ankle 5256411365 9317588 S82.841D Four wks from original injury.Con tinue PT/OT for strengthen ing, balance, gait training, safety and function.C ontinue APAP 1000 mg q 4 hrs prn, NTE 3000 mg/dContin ue fall precaution s.Monitor for safety.F/U with ortho as planned. [id number] TATI CURRIE [place] [address] [place] [address] rd [place] [address] 01/03/2024 13:24:31 01/05/2024 10:19:57 Chronic diastolic heart failure 447132647 I50.32 continue lasix 40 mg dailyconti nue potassium 20 meq daily Paroxysmal atrial fibrillation 256433489 I48.0 Cardizem 120 mg dailyconti nue eliquis 2.5 mg BID Type 2 tiara betes mellitus 55186562 E11.9 With some hypoglycem ia.continu e Humulin 70/30 20 units BID and SSI continued. continue fingerstic ks QID Essential hypertension 63276255 I10 BP goal for this elderly woman is permissive HTN, with SBP<150 and DBP<90Cont inue lasix 40 mg qd, hydralazin e 25 mg BID lasix 40 mg dailyMonit or BP and labs. Open wound of left lower leg 3917595774 8683202 S81.802A patient son reports that she gets wound care at [facility] and she suppose to have calcium alginate and zinc applied to and around left lower extremity wound. He wants this to continue until wound MD can eval.wound MD alarcon and treatwill ordered to cleanse wound with NS apply calcium alginate and zinc ben wound. [id number] TATI CURRIE [address] [address] 01/07/2024 14:10:11 01/10/2024 13:39:22 Open wound of left lower leg 5126234410 0752179 S81.802A patient son reports that she gets wound care at [facility] and she suppose to have calcium alginate and zinc applied to and around left lower extremity wound. He wants this to continue until wound MD can eval.wound MD alarcon and treatwigeovanny ordered to cleanse wound with NS apply calcium alginate and zinc ben wound. Chronic di astolic heart failure 884478080 I50.32 continue lasix 40 mg dailyconti nue potassium 20 meq daily Paroxysmal atrial fibrillation 700457224 I48.0 Cardizem 120 mg dailyconti nue eliquis 2.5 mg BID Type 2 tiara betes mellitus 13864772 E11.9 With some hypoglycem ia.continu e Humulin 70/30 20 units BID and SSI continued. continue fingerstic ks QID Essential hypertension 63651707 I10 BP goal for this elderly woman is permissive HTN, with SBP<150 and DBP<90Cont inue lasix 40 mg qd, hydralazin e 25 mg BID lasix 40 mg dailyMonit or BP and labs. [id number] TATI CURRIE [address] [address] 01/11/2024 10:33:27 01/13/2024 16:16:44 Open wound of left lower leg 0087387467 4042391 S81.802A patient son reports that she gets wound care at [facility] and she suppose to have calcium alginate and zinc applied to and around left lower extremity wound. He wants this to continue until wound can eval.wound MD alarcon and quinton ordered to cleanse wound with NS apply calcium alginate and zinc ben wound. Chronic di astolic heart failure 037847928 I50.32 continue lasix 40 mg dailyconti nue potassium 20 meq daily Paroxysmal atrial fibrillation 267842016 I48.0 Cardizem 120 mg dailyconti nue eliquis 2.5 mg BID Type 2 tiara betes mellitus 31055114 E11.9 With some hypoglycem ia.continu e Humulin 70/30 20 units BID and SSI continued. continue fingerstic ks QID Essential hypertension 94301528 I10 BP goal for this elderly woman is permissive HTN, with SBP<150 and DBP<90Cont inue lasix 40 mg qd, hydralazin e 25 mg BID lasix 40 mg dailyMonit or BP and labs. Anemia 631330034 D64.89 H/H trending down this weekstarte d procrit 10/16 and scheduled for bi weeklyunsu re when she last receivedwi ll follow up with patient son. [id number] TATI CURRIE [place] [address] [facility] [place] [address] 01/13/2024 10:07:39 01/25/2024 10:52:36 Open wound of left lower leg 6543732194 8160995 S81.802A patient son reports that she gets wound care at [facility] and she suppose to have calcium alginate and zinc applied to and around left lower extremity wound. He wants this to continue until wound can eval.wound MD alarcon and quinton ordered to cleanse wound with NS apply calcium alginate and zinc ben wound. Chronic di astolic heart failure 289302237 I50.32 continue lasix 40 mg dailyconti nue potassium 20 meq daily Paroxysmal atrial fibrillation 200406572 I48.0 Cardizem 120 mg dailyconti nue eliquis 2.5 mg BID Type 2 tiara betes mellitus 57512722 E11.9 With some hypoglycem ia.continu e Humulin 70/30 20 units BID and SSI continued. continue fingerstic ks QID Essential hypertension 33583375 I10 BP goal for this elderly woman is permissive HTN, with SBP<150 and DBP<90Cont inue lasix 40 mg qd, hydralazin e 25 mg BID lasix 40 mg dailyMonit or BP and labs. Anemia 033043773 D64.89 HX of normochrom ic normocytic anemiaH/H trending down this week - tends to fluctuates tarted procrit 02225 10/16 and scheduled for bi weeklyRece ived doses on 10/27, 11/10, 11/24, 12/19 and 01/11/24 Bimalleola r fracture of ankle 092835331 S82.841A chronic with [facility] arthropath y with deformity ankle and midfoothx of infection with osteomyeli tis August 2023follow ed by [facility]- last seen on 01/07/24- recommend 2 tx option 1.conserva tive treatment wit off loading as much as possible, wear heel protector boot.2. Surgical reconstruc tion [id number] TATI CURRIE [address] [address] 01/20/2024 09:44:29 01/25/2024 11:59:00 Open wound of left lower leg 7352254630 0340536 S81.802A continue calcium alginate and zinc left lower extremity woundwound MD alarcon and quinton ordered to cleanse wound with NS apply calcium alginate and zinc ben wound. Chronic di astolic heart failure 268949958 I50.32 stablecont inue lasix 40 mg dailyconti nue potassium 20 meq daily Paroxysmal atrial fibrillation 592885356 I48.0 HR 69Cardizem 120 mg dailyconti nue eliquis 2.5 mg BID Type 2 tiara betes mellitus 13759122 E11.9 With some hypoglycem ia.continu e Humulin 70/30 20 units BID and SSI continued. continue fingerstic ks QID Anemia 422363980 D64.89 HX of normochrom ic normocytic anemiaH/H trending down this week - tends to fluctuates tarted procrit 53022 2/24 and scheduled for bi weeklyRece ived doses on 10/27, 11/10, 11/24, 12/19 and 01/11/24 Bimalleola r fracture of ankle 546788626 S82.841A chronic with [facility] arthropath y with deformity ankle and midfoothx of infection with osteomyeli tis August 2023follow ed by [facility]- last seen on 01/07/24- recommend 2 tx option 1.conserva tive treatment wit off loading as much as possible, wear heel protector boot.2. Surgical reconstruc tion [id number] TATI CURRIE AMELIA [address] [place] [address] rd [place], [place] [address] 01/25/2024 10:02:09 01/31/2024 15:51:53 Open wound of left lower leg 2153669907 [id number] S81.802A continue calcium alginate and zinc left lower extremity woundwound MD alarcon and quinton ordered to cleanse wound with NS apply calcium alginate and zinc ben wound. Chronic di astolic heart failure 805820273 I50.32 continue lasix 40 mg dailyconti nue potassium 20 meq daily Paroxysmal atrial fibrillation 390109468 I48.0 Cardizem 120 mg dailyconti nue eliquis 2.5 mg BID Type 2 tiara betes mellitus 99260340 E11.9 no recent hypoglycem ic events.con tinue Humulin 70/30 20 units BID and SSI continued. continue fingerstic ks QID Anemia 947046409 D64.89 recent labs stable,HX of normochrom ic normocytic anemiaH/H trending down this week - tends to fluctuates tarted procrit 74715 10/16 and scheduled for bi weeklyRece ived doses on 10/27, 11/10, 11/24, 12/19 and 01/11/24 Bimalleola r fracture of ankle [id number] S82.841A dressing intact, pain is controlled chronic with charcot arthropath y with deformity ankle and midfoothx of infection with osteomyeli tis August 2023foll ed by [facility]- last seen on 01/07/24- recommend 2 tx option 1.conserva tive treatment wit off loading as much as possible, wear heel protector boot.2. Surgical reconstruc tion [id number] TATI CURRIE [address] [place] [address] 01/28/2024 15:29:14 02/01/2024 08:26:24 Open wound of left lower leg [id number] S81.802A [facility] with NS apply calcium alginate and zinc ben wound.elev ate left foot/heel when sitting to keep DTI well perfused Chronic di astolic heart failure 147185823 I50.32 continue lasix 40 mg dailyconti nue potassium 20 meq daily Paroxysmal atrial fibrillation 053759020 I48.0 Cardizem 120 mg dailyconti nue eliquis 2.5 mg BID Type 2 tiara betes mellitus 31996097 E11.9 no recent hypoglycem ic events.con tinue Humulin 70/30 20 units BID and SSI continued. continue fingerstic ks QID Anemia 626222608 D64.89 recent labs stable,HX of normochrom ic normocytic anemiacont inue procrit 56010 10/16 and scheduled for bi weekly Bimalleola r fracture of ankle 982956113 S82.841A she [facility] was seen on 01/23 and will f/u in 2 weeksconti chadde with current dressing change. 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 Surgical reconstruc tion [id number] TATI CURRIE [address] [place] [address] 02/01/2024 10:24:39 02/04/2024 08:49:56 Open wound of left lower leg [id number] 2518767 S81.802A continue to cleanse wound with NS apply calcium alginate and zinc ben wound.elev ate left foot/heel when sitting to keep DTI well perfused Chronic di astolic heart failure 394235673 I50.32 continue lasix 40 mg dailyconti nue potassium 20 meq daily Paroxysmal atrial fibrillation 291307104 I48.0 Cardizem 120 mg dailyconti nue eliquis 2.5 mg BID Type 2 tiara betes mellitus 14314597 E11.9 no recent hypoglycem ic events.con tinue Humulin 70/30 20 units BID and SSI continued. continue fingerstic ks QID Anemia 634622693 D64.89 recent labs stable,HX of normochrom ic normocytic anemiacont inue procrit 17725 10/16 and scheduled for bi weekly Bimalleola r fracture of ankle 343608268 S82.841A [facility] was seen on 01/23 and will f/u in 2 weeksconti nue with current dressing change. 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 Surgical reconstruc tion Chronic ki dney disease 747314763 N18.32 monitor labsavoid nephrotoxi c meds Essential hypertension 32738494 I10 blood pressure has been stable 120-130sBP goal for this elderly woman is permissive HTN, with SBP<150 and DBP<90Cont inue lasix 40 mg qd, hydralazin e 25 mg BID lasix 40 mg dailyMonit or BP and labs. Gout 67047902 M10.09 allopurino l 100 mg dailynot reported recent flare up. [id number] TATI CURRIE [address] [place] [address] 02/04/2024 09:44:41 02/07/2024 14:37:26 Open wound of left lower leg [id number] 7892134 S81.802A continue to cleanse wound with NS apply calcium alginate and zinc ben wound.elev ate left foot/heel when sitting to keep DTI well perfused Chronic di astolic heart failure 595925629 I50.32 euvolemicc ontinue lasix 40 mg dailyconti nue potassium 20 meq daily Paroxysmal atrial fibrillation 833324574 I48.0 Cardizem 120 mg dailyconti nue eliquis 2.5 mg BID Type 2 tiara betes mellitus 92862959 E11.9 BGLs mainly under 200's, a few noted in the 400s. patient and son are very particular about insulin dosing, so will not adjust.con tinue Humulin 70/30 20 units BID and SSI continued. continue fingerstic ks QID Anemia 256670282 D64.89 continue procrit 91657 10/16 and scheduled for bi weekly Bimalleola r fracture of ankle 382386250 S82.841A [facility] was seen on 01/23 and [...] protector boot.2. Surgical reconstruc tion Essential hypertension 40503986 I10 BP goal for this elderly woman is permissive HTN, with SBP<150 and DBP<90Cont inue lasix 40 mg qd, hydralazin e 25 mg BID lasix 40 mg dailyMonit or BP and labs. [id number] TATI CURRIE AMELIA [address] [place] [address] 02/07/2024 11:53:48 02/09/2024 16:49:24 Open wound of left lower leg [id number] 5967365 S81.802A continue to cleanse wound with NS apply calcium alginate and zinc ben wound.elev ate left foot/heel when sitting to keep DTI well perfused Chronic di astolic heart failure 493758258 I50.32 continue lasix 40 mg dailyconti nue potassium 20 meq daily Paroxysmal atrial fibrillation 292309156 I48.0 Cardizem 120 mg dailyconti nue eliquis 2.5 mg BID Type 2 tiara betes mellitus 44603241 E11.9 continue Humulin 70/30 20 units BID and SSI continued. continue fingerstic ks QID Anemia 034728194 D64.89 continue procrit 55039 224 and scheduled for bi weekly Essential hypertension 31611124 I10 Continue lasix 40 mg qd, hydralazin e 25 mg BID lasix 40 mg dailyMonit or BP and labs. [id number] TATI CURRIE [address] [address] 02/10/2024 09:22:17 02/16/2024 10:42:27 Open wound of left lower leg [id number] 1858101 S81.802A continue to cleanse wound with NS apply calcium alginate and zinc ben wound. PCC updatedele vate left foot/heel when sitting to keep DTI well perfused Chronic di astolic heart failure 840570942 I50.32 continue lasix 40 mg dailyconti nue potassium 20 meq daily Paroxysmal atrial fibrillation 561141949 I48.0 Cardizem 120 mg dailyconti nue eliquis 2.5 mg BID Type 2 tiara betes mellitus 37808107 E11.9 continue Humulin 70/30 20 units BID and SSI continued. continue fingerstic ks QIDno reported hypo/hyper glycemic events. Essential hypertension 03952764 I10 Continue lasix 40 mg qd, hydralazin e 25 mg BID lasix 40 mg dailyMonit or BP and labs. [id number] Janee Davis MD [address] [address] 02/14/2024 21:04:27 03/14/2024 07:28:32 Chronic diastolic heart failure 109036253 I50.32 Appears euvolemic. Continue lasix 40 mg qd and KCl 20 meq qd to prevent hypokalemi a.Monitor resp. status, fluid status, wts and labs. Paroxysmal atrial fibrillation 662072879 I48.0 Rate in good control on meds as above.Cont inue eliquis 2.5 mg BID for AC.Monitor HR and bleeding risk. Type 2 tiara betes mellitus 83181709 E11.9 In adequate control.Co ntinue Humulin 70/30 20U BID and SSIContinu e fingerstic ks QID Essential hypertension 63029576 I10 In good control.Co ntinue lasix 40 mg qd, hydralazin e 25 mg BID, diltiazem 120 mg qd, and lasix 40 mg qdMonitor BP and labs. 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 Essential hypertension 95900233 I10 Continue lasix 40 mg qd, hydralazin e 25 mg BID lasix 40 mg dailyMonit or BP and labs. Chronic di astolic heart failure 236039914 I50.32 continue lasix 40 mg dailyconti nue potassium 20 meq daily Paroxysmal atrial fibrillation 454059305 I48.0 Cardizem 120 mg dailyconti nue eliquis 2.5 mg BID Type 2 tiara betes mellitus 84683760 E11.9 continue Humulin 70/30 20 units BID and SSI continued. continue fingerstic ks QIDno reported hypo/hyper glycemic events. Chronic ki dney disease 486803746 N18.32 Back to baseline.C ontinue to avoid nephrotoxi c meds as able.Monit or labs.Renal consult prn. Closed bim alleolar fracture of right ankle 5453613136 2116880 S82.841D Continue APAP 1000 mg q 4 hrs prn, NTE 3000 mg/dContin ue fall precaution s.Monitor for safety.F/U with ortho Gastroesop hageal reflux disease without esophagitis 591954975 K21.9 Continue omeprazole 20 mg qd Gout 38311970 M10.09 Continue allopurino l 100 mg qdMonitor for flare. Hyperlipidemia 49491733 E78.49 Continue fenofibrat e 160 mg qdMonitor as outpt. Hypothyroidism 87811844 E03.8 not on medsTSH WNL inpt.Monit or as outpt Hypomagnesemia 334632242 E83.42 Continue Mg+ 400 mg BID.Monito r levels Vitamin D deficiency 347 31695 E56.8 ergocalcif denisse 50,000 IU qdMonitor levels Anemia 727836564 D64.89 Multifacto rial.justo nue procrit 96941 bi weekly Health Concerns Section Related Observation LastModified by Organization Detai ls LastModified Time None Recorded Concern Status LastModified by Organization Details LastModified Time None Recorded Advance Directives Directive Y: Payers Insurance Date Sequence Insurance Name Policy Number Policy Bravo Covered Member ID Bravo Member ID Guarantor Name 01/25/2024 1 [place] [email or web address] Susan Laurent [id number] Susannicolas Rodríguezchiki 03/14/2024 2 [place] [id number] Susan Rodríguezchiki [id number] Susan Rodríguezchiki Notes Date Note Type [...] broke her right ankle, most recently at [facility] for a CHF exacerbation.She initially presented [place] [facility] on [facility]26 after an unknown injury. Found to have an Acute displaced bimalleolar fracture with ankle mortise disruption. Complicated by chronic pain from right foot Charcot arthropathy. She was splinted and instructed in strict NWB status and d/c to [facility]. Of note she had just been dxed with new onset Afib on 11/24 and started on diltiazem and apixaban.Returned to [facility] on 12/13, several days after d/c from [facility], because of difficulty ambulating at home and unable to help her due to his own issues. D/C on 12/15 to [facility] Steven.Was sent to the [facility] ED on 12/17 because of SOB and [...] CURRIE [address], [address], [place], [address], [employer] 02/04/2024 11:01:05 02/07/2024 text/html ROS as noted [...] broke her right ankle, most recently at [facility] for a CHF exacerbation.She initially presented to the [facility] on 11/26 after an unknown injury. Found to have an Acute displaced bimalleolar fracture with ankle mortise disruption. Complicated by chronic pain from right foot Charcot arthropathy. She was splinted and instructed in strict NWB status and d/c to [facility]. Of note she had just been dxed with new onset Afib on 11/24 and started on diltiazem and apixaban.Returned to [facility] on 12/13, several days after d/c from [facility], because of difficulty ambulating at home and unable to help her due to his own issues. D/C on 12/15 to [facility].Was sent to the [facility] ED on 12/17 because of SOB and AMS.Labs and vitals were WNL (except Na+147 and BNP 222) CXR showed pulmonary edema with small pleural effusions. Neg for RSV/influenza and covid.EKG showed NSR and she was continued on diltiazem and apixaban.She was txed with IV lasix and K+A left dhillon wound was followed by wound care. TATI CURRIE [address], [address], [place], [address], [facility] [place] [employer] 02/07/2024 14:37:38 02/10/2024 text/html ROS as noted [...] CURRIE [address], [address], [place], [address], [facility] [place] [employer] 02/10/2024 12:44:47 02/14/2024 text/html I am seeing this 88 yo woman for an acute visit today to f/u on RLE fx, ulcers and NWB status.Son has had concerns about mother refusing wound care and this is being addressed by nursing staff.She was seen at the [facility] wound clinic on 02/06 and it was [...] s/p MSSA sepsis. Janee Davis MD [address], [address], [place], [address], [employer] 03/11/2024 19:10:29 02/18/2024 text/html This is an 88 yo woman due for discharge today. Patient has been in and out of rehabs and hosp since 11/26 when she broke her right ankle, most recently at [facility] for a CHF exacerbation.She initially presented to the [facility] on 11/26 after an unknown injury. Found to have a right Acute displaced bimalleolar fracture with ankle mortise disruption. Complicated by chronic pain from right foot Charcot arthropathy. She was splinted and instructed in strict NWB status and d/c to [facility]. Of note she had just been dxed with new onset Afib on 11/24 and started on diltiazem and apixaban.Returned to [facility] on 12/13, several days after d/c from [facility], because of difficulty ambulating at home and unable to help her due to his own issues. D/C on 12/15 to [facility] Steven.Was sent to the [facility] ED on 12/17 because of SOB and AMS.Labs and vitals were WNL (except Na+147 and BNP 222) CXR showed pulmonary edema with small pleural effusions. Neg for RSV/influenza and covid.EKG showed NSR and she was continued on diltiazem and apixaban.She was txed with IV lasix and K+A left dhillon wound was followed by wound care.She was transferred to [facility] on [place] was done on 12/23 [...] CURRIE [address], [address], [place], [address], [facility] [place] [employer] 02/18/2024 14:26:35 OBGyn Episode No OBEpisode recorded.
--- OUTSIDE RECORDS SUMMARY | 2025-06-28 15:23 | XMS_ITS | Clinical Summary ---
Author Organization [facility] Address [address] [place] [id number] Phone Care Team Providers Care Laboratory Monitor Name Role Phone Unknown, Unknown Primary Care [...] MEDEX SUPPLEMENT MEDICARE PART A & B [facility] FULL MEDEX SUPPLEMENT MEDICARE PART A & B [employer] NET FULL MEDEX SUPPLEMENT MEDICARE PART A & B HEALTH SAF[employer] NET FULL [employer] MEDEX SUPPLEMENT MEDICARE PART A & B [facility] FULL [employer] MEDEX SUPPLEMENT MEDICARE PART A & B [facility] FULL MEDEX SUPPLEMENT MEDICARE PART A & B [employer] NET FULL MEDEX SUPPLEMENT MEDICARE PART A & B [employer] NET FULL [employer] MEDEX SUPPLEMENT MEDICARE PART A & B [facility] FULL [employer] [place] MEDEX SUPPLEMENT MEDICARE PART A & B [facility] FULL Care Teams Laboratory Monitor Relationship Specialty Start Date End Date Unknown, Unknown, PCP - General 12/21/18 Additional Source Comments The information contained in this document represents components of the legal health record. It is not the complete legal health record.[facility]
--- OUTSIDE RECORDS SUMMARY | 2025-06-28 15:23 | XMS_ITS | Clinical Summary ---
Author Organization [employer] Address [address] [place] [address] [address] [place] [address] Care Team Providers Care Social Problems Specialist Name Role Phone Unavailable Primary Care Provider [...]
== END 2025-06-28 13:10 | disposition home or self-care (01) ==
LOC: HO.ENCR 12:33
PROVIDERS: Visit Provider Student in an Organized Health Care Education/Training Program
DX: E11.69 Type 2 diabetes mellitus with other specified complication (principal)
CPT/HCPCS: 99213

== ENCOUNTER → 2025-06-28 12:32 | Outpatient (BNVA) | payer MEDICARE, SELFPAY | PROVIDERS: Visit Provider Student in an Organized Health Care Education/Training Program | DX: E11.9 Type 2 diabetes mellitus without complications (principal) | CPT/HCPCS: 82947; 99212 ==

== ENCOUNTER 2025-07-04 11:19 | Outpatient (REF) | payer MEDICARE, SELFPAY ==
[2025-07-04 11:49] LABS: Hematocrit 34.5 % (37.0-47.0); Hemoglobin 11.1 g/dl (12.0-16.0); Imm Gran Abs Auto 0.03 X10*3/uL (0.00-0.03); Imm Gran Pct Auto 0.5 % (0.0-0.4); Lymphocytes Absolute Auto 1.5 X10*3/uL (1.2-4.9); MANUAL DIFF FLAG SCAN; Mean Corpuscular HGB Conc 32.2 g/dl (31.0-35.0); Mean Corpuscular Hemoglobin 28.3 pg (27.0-33.0); Mean Corpuscular Volume 88.0 fL (80.0-98.0); NRBC Abs Auto 0.000 X10*3/uL (0.0-0.012); NRBC Pct Auto 0.0 /100WBC (0.0-0.2); PLT CLUMP 1; Red Blood Count 3.92 X10*6/uL (4.20-5.50); SCAN SMEAR FLAG 1
[2025-07-04 12:08] LABS: Platelet Count 232 X10*3/uL (160-400); White Blood Count 6.5 X10*3/uL (4.8-10.8)
--- OUTSIDE RECORDS SUMMARY | 2025-07-04 14:04 | XMS_ITS | Clinical Summary ---
Author Organization [employer] Address [address] [place] [address] [address] [place] [address] Care Team Providers Care Quality Measurement Specialist Name Role Phone Unavailable Primary Care [...]
--- OUTSIDE RECORDS SUMMARY | 2025-07-04 14:04 | XMS_ITS | Patient Health Record ---
Author Organization [facility] Address [address] [place] [address] Care Team Providers Care Java Programming Professor Name Role Phone PriceWilber [phone] Reason For Referral No Information Plan Of Treatment No Information
--- OUTSIDE RECORDS SUMMARY | 2025-07-04 14:04 | XMS_ITS | Clinical Summary ---
Author Organization [facility] Address [address] [place] [address] Phone Care Team Providers Care Music Industry Intern Name Role Phone Unknown, Unknown Primary Care [...] MEDEX SUPPLEMENT MEDICARE PART A & B COUNT INCLUDES THE [facility] FULL MEDEX SUPPLEMENT MEDICARE PART A & B [employer]ALTH SAF[employer] NET FULL MEDEX SUPPLEMENT MEDICARE PART A & B [employer]ALTH [employer]AF[employer] NET FULL [employer] MEDEX SUPPLEMENT MEDICARE PART A & B COUNT INCLUDES THE [facility] FULL [employer] MEDEX SUPPLEMENT MEDICARE PART A & B COUNT INCLUDES THE [facility] FULL MEDEX SUPPLEMENT MEDICARE PART A & B [employer] NET FULL MEDEX SUPPLEMENT MEDICARE PART A & B [employer] NET FULL [employer] MEDEX SUPPLEMENT MEDICARE PART A & B COUNT INCLUDES THE [facility] FULL [employer] [place] MEDEX SUPPLEMENT MEDICARE PART A & B COUNT INCLUDES THE [facility] FULL Care Teams Music Industry Intern Relationship Specialty Start Date End Date Unknown, Unknown, PCP - General 12/21/18 Additional Source Comments The information contained in this document represents components of the legal health record. It is not the complete legal health record.[facility]
--- OUTSIDE RECORDS SUMMARY | 2025-07-04 14:04 | XMS_ITS | Clinical Summary ---
Author Organization [facility] Address [address] [place] [address] Phone Care Team Providers Care Handbag Frames Inspector Name Role Phone Chritsopher Zamudio MD Primary Care Provider Surgical History [...] (HCC); COMMENT: [facility]. History of cataract 10/17/2020 DX:History o [...] Info) Description 07/24/2025 10:00 AM EST Treatment [facility] Occupational Therapy [address] [place] [phone] Hannah Haas P, OTR/L Health Maintenance [...] Documents on File Type Date Recorded Patient Archeologist Expl anation Health Care Decision (hx) 08/20/2023 AD العراقي DIRECTIVE Health Care Decision (hx) 08/20/2023 AD العراقي DIRECTIVE Care Teams Handbag Frames Inspector Relationship Specialty Start Date End Date Christopher Zamudio MD [address] [place] [id number] PCP - General 09/10/16
== END 2025-07-04 11:20 | disposition home or self-care (01) ==
LOC: HO.LAB 11:19
PROVIDERS: Visit Provider Internal Medicine Medical Oncology
DX: D64.9 Anemia, unspecified (principal)
CPT/HCPCS: 36415; 85025

== ENCOUNTER 2025-07-09 13:32 | Outpatient (AMB) | payer MEDICARE, SELFPAY ==
--- NOTE | 2025-07-09 13:34 | A.OFFVIS_ITS ---
Vital Signs 07/09/25 13:35 Height 5 ft 5 in BMI Reason not done Patient refused/unable BP 160/82 H Blood Pressure Location Lt brachial Position Sitting Pulse 64 Intake Visit Reasons: 6m follow up Intake Note: 6 month follow-up feeling good bp has been up Environmental Law Professor Required: No Talent Management Manager: Talent Management Manager Present Accompanied by: Son Allergies codeine (CODEINE) Allergy (Intermediate, Verified 06/28/25 12:44) BACK PAIN pollen extracts (POLLEN) Allergy (Mild, Verified 06/28/25 12:44) SINUS IRRITATION metoprolol Adverse Reaction (Intermediate, Verified 06/28/25 12:44) Hallucinations Medication List - Last Reconciled 07/09/25 by Rudi Sethi MD acetaminophen 500 mg PO Q4H PRN [Acucheck glucose monitor As directed Check blood sugar two times a day] [Acucheck test strips As directed check blood sugar two times a day] allopurinol 100 mg PO DAILY apixaban (Eliquis) 2.5 mg PO BID blood sugar diagnostic (Accu-Chek Radha Plus test strips) As directed Check blood sugar tid blood-glucose meter As directed Check blood sugar three times a day blood-glucose sensor (AvokiaStyle Jr 3 Sensor device) To measure BG 4-6 times per day blood-glucose,dyed yarn operator,cont (FreeStyle Jr 3 [place]) As directed diltiazem HCl CD 120 mg PO DAILY empagliflozin (Jardiance) 10 mg PO DAILY ergocalciferol (vitamin D2) 1,250 mcg PO Q14D fenofibrate 160 mg PO DAILY hydralazine 100 mg PO BID insulin glargine (Lantus Solostar U-100 Insulin) 20 units (0.2 mL) subcut QAM insulin lispro (Humalog KwikPen (U-100) Insulin) 8 units (0.08 mL) subcut TID lancets (Microlet Lancet) As directed multivitamin 1 tab PO DAILY omeprazole 20 mg PO DAILY@0630 HPI Comments Details: Susan comes for follow-up of a blood pressure and heart failure, accompanied by his son. Recorded blood pressures are all elevated about systolic 160 over the last many days. We have had gradually increased her hydralazine to 100 mg b.i.d.. However despite that her blood pressure remains elevated. She has had no new cardiac symptoms. No prolonged palpitation irregular heartbeat. No clear orthopnea, PND, leg edema. She is taking all her medications. [facility] Medical History Lymphedema Diabetes mellitus BARB (acute kidney injury) Diabetes mellitus with coincident hypertension Hyperlipidemia CKD (chronic kidney disease) stage 4, GFR 15-29 ml/min Atrial fibrillation Osteomyelitis Gout Anemia Hx of type A viral hepatitis Obesity Surgical History History of foot surgery History of surgical removal of skin lesion History of biopsy History of excision of lesion H/O varicose vein ligation History of cholecystectomy Family History Father Gastric cancer Mother Acute CVA (cerebrovascular accident) Diabetes Brother Colon cancer Social History Household Members: Family Household Members Other:: sonvivek Housing: House Do you presently have visiting nurse or other home services: No Alcohol intake: never Patient Tobacco Use Status: Never used Tobacco e-Cigarette/Vaping Use: Never Used Second Hand Smoke Exposure: No Advance Directives Date on File: 07/16/21 service: No Current occupational status: retired Cognitive needs: Yes (walker ) Hearing needs: No Vision needs: Yes Review of Systems Const Denies chills, Denies fatigue, Denies fever(s), Denies frequent falls, Denies weakness, Denies weight gain and Denies weight loss ENT Denies dizziness Card Denies chest pain, Denies leg edema, Denies lightheadedness, Denies palpitations, Denies dyspnea, Denies dyspnea on exertion, Denies orthopnea and Denies other (loss of consciousness) Resp Denies cough, Denies dyspnea and Denies dyspnea on exertion GI Denies hematochezia and Denies change in stool character Musc Denies abnormal gait, Denies muscle weakness, Denies numbness, Denies radiating pain into limb and Denies tingling Neuro Denies abnormal gait, Denies dizziness, Denies frequent falls, Denies numbness, Denies tingling and Denies weakness Endo Denies fatigue and Denies palpitations Physical Exam Vital Signs: Last Vital Signs Pulse 64 07/09/25 13:35 BP 160/82 H 07/09/25 13:35 Const General: cooperative, healthy appearing, comfortable and no acute distress Orientation/consciousness: patient oriented x3 Neck Neck: Yes normal visual inspection and Yes no JVD Resp Effort & Inspection: normal respiratory effort Auscultation: clear to auscultation bilaterally, no rales, no rhonchi and no wheezes Cardio Rate: regular rate Rhythm: abnormal rhythm Heart sounds: S1 normal heart sound present, S2 normal heart sound present, no gallops, no murmurs and no rubs Neuro General: patient oriented x3 Extrem Other: tight edema in each lower leg Psych Appearance: grossly normal Mental Status: mental status grossly normal Speech and movement: Normal speech and movement present Assessment & Plan Assessment & Plan (1) Poorly controlled blood pressure: Code(s): I99.8 - Other disorder of circulatory system Category: Medical Plan: Uncontrolled blood pressure in this elderly woman despite increasing dose of hydralazine. For now will discontinue Cardizem therapy and switch to carvedilol 6.25 mg b.i.d. and add amlodipine 2.5 mg daily. Stress mitigation strategies were discussed. Low-salt diet was discussed. Advised to continue monitor blood pressure at home and maintain a log and call us in his month's time. Blood pressure is still elevated will further uptitrate carvedilol and amlodipine therapy. (2) CHF (congestive heart failure): Code(s): I50.9 - Heart failure, unspecified Category: Medical Qualifiers: Heart failure type: unspecified Heart failure chronicity: unspecified Qualified Code(s): I50.9 - Heart failure, unspecified Plan: Heart failure with mid-range LV ejection fraction. Continue aggressive blood pressure control as above. Continue current therapy with Jardiance. She is currently not on any loop diuretics. Will continue to avoid loop diuretics at this point time. Signs and symptoms of heart failure were discussed. Continue rate control for atrial fibrillation. (3) Atrial fibrillation: Code(s): I48.91 - Unspecified atrial fibrillation Category: Medical Qualifiers: Atrial fibrillation type: unspecified Qualified Code(s): I48.91 - Unspecified atrial fibrillation Plan: Atrial fibrillation which is now chronic persistent. Currently rate controlled. Will change Cardizem CD 2 carvedilol therapy for rate control and better blood pressure control. Continue full oral anticoagulation, currently on Eliquis 2.5 mg b.i.d.. Will follow up in the clinic in 6 months time, sooner PRN. Thank you for allowing me to partake in her care Medications: New carvedilol (Coreg) must administer with a meal/food 6.25 mg PO BID 60 tabs 3RF amlodipine 2.5 mg PO DAILY 30 tabs 4RF Changed From hydralazine 50 mg PO BID 90 days 180 tabs 3RF To hydralazine 100 mg PO BID Discontinued diltiazem HCl CD Stop Metoprolol - Continue Diltiazem CD 120mg daily Discontinued Reason: Doctor's Order 120 mg PO DAILY 90 caps 3RF Coding Level of Care Code Est Pt Level 4 (71209) Complex EM visit Add On G2211 Diagnoses Poorly controlled blood pressure I99.8 Congestive heart failure, unspecified HF chronicity, unspecified heart failure type I50.9 Heart failure type: unspecified Heart failure chronicity: unspecified Atrial fibrillation, unspecified type I48.91 Atrial fibrillation type: unspecified
[2025-07-09 13:35] VITALS: BP 160/82; PULSE 64
--- OUTSIDE RECORDS SUMMARY | 2025-07-10 02:35 | XMS_ITS | Data Portability ---
Author Organization [facility], Main Office Address [address] [address] [address] [place] [address] Care Team Providers Care Adult Neuropsychologist Name Role Phone TISHA MANZO Primary Care Provider [phone] YARA CISNEROS 2ND FLOOR OTHER Assessment Encounter [...] Address Organization Details Recorded Time Bacteremi a 4926818 Active 2022 MSSA foot infection Not Available [facility] 4 02:47:47 Type 2 diabetes mellitus 06579688 Active 2022 Not Available [facility] 4 02:47:47 Hypothyro idism 57604754 Active 2022 Not Available [facility] 4 02:47:47 Chronic kidney disease 193815445 Active 2022 Not Available [facility] 4 02:47:47 Gout 81974408 Active 2022 Not Available [facility] 4 02:47:47 Gastroeso phageal reflux disease without esophagit is 116887202 Active 2022 Not Available [facility] 4 02:47:47 Hyperlipi demia 31869057 Active 2022 Not Available [facility] 4 02:47:47 Essential hypertens ion 16322241 Active 2022 Not Available [facility] 4 02:47:47 Hypomagne semia 332042953 Active 2023 Not Available [facility] 4 02:47:47 Vitamin D deficienc y 96984502 Active 2023 Not Available [facility] 4 02:47:47 Chronic diastolic heart failure 360960245 Active 2023 Janee Davis MD [address] [facility], [facility] [address], [place], [address] , [employer] 4 10:48:17 Anemia 583093041 Active 2023 Janee Davis MD [address] [facility], [address], [place], [address] , [employer] 4 11:10:38 Bimalleol ar fracture of ankle 873314638 Active 2023 TATI CURRIE [address] [facility], [facility] [address], [place], [address] , [facility] [email or web address] 4 14:06:55 Stasis dermatiti s and 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 Please review this document and add these problems to the patient's chart manually as needed. Problem Notes None recorded. Medical Equipment None Reported. Allergies Allergen ID Allergen Name Allergen Category Reaction Reaction Severity Criticality Documentation Date Start Date Code Code System Note Provider Name and Address Organization Details Recorded Time 55660 codeine medicatio n Not available Not available Not available 08/20/2023 2670 RxNorm ALVARADO DEL CID NP [address] [facility], [address], [place], [address], [employer] [facility] 3 10:53:18 Vitals Date Recorded Body height Heart rate Respiratory rate Body temperature Systolic And Diastolic Provider Name and Address Organization Details Last Updated DateTime 4 170.18 cm 80 /min 16 /min 98 [degF] 129/78 mm[Hg] TATI CURRIE [address] [facility], [address], [place], [address], [employer] [facility] 4 10:52:49 Date Recorded Body height Body temperature Respiratory rate Heart rate Systolic And Diastolic Provider Name and Address Organization Details Last Updated DateTime 4 170.18 cm 97.3 [degF] 18 /min 68 /min 122/68 mm[Hg] TATI CURRIE [address] [facility], [address], [place], [address], [employer] [facility] 4 14:33:03 Date Recorded Body height Heart rate Respiratory rate Body temperature Systolic And Diastolic Provider Name and Address Organization Details Last Updated DateTime 4 170.18 cm 74 /min 18 /min 98 [degF] 132/74 mm[Hg] TATI CURRIE [address] [facility], [address], [place], [address], [employer] 4 12:19:44 Date Recorded Body height Body mass index (BMI) Body weight Heart rate Respiratory rate Body temperature Oxygen saturation Oxygen saturation in Arterial blood by Pulse oximetry Systolic And Diastolic Provider Name and Address Organization Details Last Updated DateTime 4 170.18 cm 31.6 kg/m2 62707.6 6 g 79 /min 18 /min 97.4 [degF] 100 % 100 % 141/75 mm[Hg] Janee Davis MD [address] [facility], [address], [place], [address], [employer] 4 21:07:19 Date Recorded Body height Heart rate Respiratory rate Body temperature Oxygen saturation Oxygen saturation in Arterial blood by Pulse oximetry Systolic And Diastolic Provider Name and Address Organization Details Last Updated DateTime 4 170.18 cm 79 /min 18 /min 98 [degF] 100 % 100 % 141/75 mm[Hg] TATI CURRIE [address], [address], [place], [address], [employer] [facility] 4 14:26:02 Social History Question Answer Notes LastModified by [employer] Details LastModified Time Tobacco Smoking Status Never Smoker ALVARADO DEL CID NP [address], [address], [place], [address], [employer] [facility] 08/20/2023 11:16:58 Do You Have An Advance Directive? Yes Information not available 08/20/2023 What Is Your Code Status? Full Code Information not available 08/20/2023 Where Do You Live? SingleLevelHouse Lives With Son, 3-4 Steps To Enter Information not available 08/24/2023 Legal Guardian? No Informati on not available 08/24/2023 Do You Have A Medical Power Of Unemployment Specialist? Yes Information not available 08/24/2023 What [...] Functional Status Question Answer Note LastModified by [employer] Details LastModified Time Do you use any [...] adjuvanted, quadrivalent, PF 3 completed Not Available [facility] 09/30/2023 02:47:47 Td(adult) unspecified formulation 1 completed [facility] 12/28/2023 16:20:20 SARS-COV-2 (COVID-19) vaccine, UNSPECIFIED 1 completed [facility] 12/28/2023 16:20:43 SARS-COV-2 (COVID-19) vaccine, UNSPECIFIED 1 completed [facility] 12/28/2023 16:20:50 pneumococcal polysaccharide PPV23 1 completed [facility] 12/28/2023 16:21:57 SARS-COV-2 (COVID-19) vaccine, UNSPECIFIED 1 completed [facility] 12/28/2023 16:22:45 Past Encounters Encounter ID Performer Location Encounter Start Date Encounter Closed Date Diagnosis/Indication Diagnosis SNOMED-CT Code Diagnosis ICD10 Code Diagnosis IMO Codes Diagnosis Note [id number] SCOTT NOBLES [address] [place] [address] 08/20/2023 09:52:59 08/31/2023 13:27:41 Bacteremia 6210312 R78.81 flush picc qshiftcefa zolin 1 gm bid to 2/2followu p with vascular as planned Type 2 tiara betes mellitus 43906108 E11.9 humulin/re g 70/30 50 units bidmonitor glucose Chronic ki dney disease 527875715 N18.9 monitor labsavoid nephrotoxi c meds Gastroesop hageal reflux disease without esophagitis 725875979 K21.9 mag ox 400 mg daily to 18omepraz ole 20 mg daily Gout 30510285 M10.9 allopurino l 100 mg dailyD3 1250 o19swlb Hyperlipidemia 58963469 E78.5 fenofibrat e 160 mg daily Hypothyroidism 96743868 E03.9 hx of Essential hypertension 22694335 I10 lasix 20 mg dailyhydra lazine 25 mg bidtoprol 25 mg dailymonit or bplisinopr il stopped in hospital [id number] ALVARADO DEL CID NP [address] [place] [address] 08/24/2023 13:44:02 08/25/2023 03:52:21 Type 2 diabetes mellitus 45682694 E11.9 humulin/re g 70/30 50 units bidmonitor glucose Bacteremia 1618797 R78.8 1 flush picc qshiftcefa zolin 1 gm bid to 2/2followu p with vascular as planned [id number] Janee Davis MD [address] [place] [address] 08/24/2023 15:18:19 08/31/2023 14:10:55 Type 2 diabetes mellitus 38108289 E11.9 With some hypoglycem ia.Humulin 70/30 was lowered from 50 units BID to 25U BID and SSI continued. Monitor fingerstic ks, will change from TID to qid, with low dose SS at hs.HgA1C was 6.7 inpt. Bacteremia 9046120 R78.8 1 As above Osteomyeli tis of right foot 8170669733 571496 M86.271 S/P I&D and debridemen t. Vasc. surgeon (Dr. Friedman) felt that all diseased bone was removed.Co ntinue cefazolin 1 gm IV BID until 09/24 to complete 6 wk course.Con tinue wound care as ordered.F/ U with Dr. Friedman as planned. Chronic ki dney disease 428563206 N18.32 Back to baseline.C ontinue to avoid nephrotoxi c meds as able.Monit or labs.Renal consult prn. Gastroesop hageal reflux disease without esophagitis 613441789 K21.9 No current sxs.Contin ue omeprazole 20 mg qdMonitor sxs. Gout 09536036 M10.09 No current sxs.Contin ue allopurino l 100 mg qdMonitor for flare. Hyperlipidemia 42875388 E78.49 Continue fenofibrat e 160 mg qdMonitor as outpt. Hypothyroidism 67211417 E03.8 In hx.TSH WNL in 11/2022Moni tor as outpt Essential hypertension 96094502 I10 BP borderline at times, but acceptable for age.BP goal for this elderly woman is permissive HTN, with SBP<150 and DBP<90Cont inue lasix 20 mg qd, hydralazin e 25 mg BID and metoprolol 25 mg qd.Monitor BP and labs.No need to restart lisinopril at this time Hypomagnesemia 222085013 E83.42 Continue Mg+ 400 mg qd until 08/30, then recheck level Vitamin D deficiency 347 52964 E55.9 Continue ergocalcif denisse 50,000 IU every 14 days.Monit or levels [id number] [facility] [address] [place] [address] 08/31/2023 11:38:57 09/08/2023 12:37:11 Bacteremia 6099940 R78.81 continuece fazolin 1 gm bid to 2ollow up with vascular Type 2 tiara betes mellitus 04927542 E11.9 200-280's mainlyhumu mahesh/reg 70/30 50 units bidmonitor glucose Chronic ki dney disease 145630405 N18.9 monitor labsavoid nephrotoxi c meds Gastroesop hageal reflux disease without esophagitis 351699576 K21.9 mag ox 400 mg daily to 08/30omepraz ole 20 mg daily Gout 13849524 M10.9 allopurino l 100 mg dailyD3 1250 x57kwom Hyperlipidemia 07100181 E78.5 fenofibrat e 160 mg daily Hypothyroidism 87055756 E03.9 hx of Essential hypertension 33562200 I10 lasix 20 mg dailyhydra lazine 25 mg bidtoprol 25 mg dailymonit or bplisinopr il stopped in hospital [id number] [facility] CURRI[facility] [address] [place] [address] 09/02/2023 09:40:27 09/08/2023 13:38:51 Bacteremia 6572020 R78.81 continueMS SA right footcefazo mahesh 1 gm bid to 22follow up with vascular Type 2 tiara betes mellitus 21418177 E11.9 200-280's mainlychan ged back to humulin/re g 70/30 50 units bidmonitor glucose Osteomyeli tis of right foot 0130078591 703507 M86.271 S/P I&D and debridemen t. Vasc. surgeon (Dr. Friedman) felt that all diseased bone was removed.Co ntinue cefazolin 1 gm IV BID until 2 to complete 6 wk course.Con tinue wound care as ordered.F/ U with Dr. Friedman as planned. Edema of l ower extremity 846915760 R60.0 chronic BLEright greater than left [id number] TATI CURRIE [address] [address] 09/07/2023 13:02:41 09/13/2023 15:17:43 Bacteremia 1561119 R78.81 continueMS SA right footcefazo mahesh 1 gm bid to ollow up with vascular Type 2 tiara betes mellitus 51073143 E11.9 lispro SSChumulin /reg 70/30 50 units bidmonitor glucose Osteomyeli tis of right foot 4448084592 166728 M86.271 S/P I&D and debridemen t. Vasc. surgeon (Dr. Friedman) felt that all diseased bone was removed.Co ntinue cefazolin 1 gm IV BID until 09/24 to complete 6 wk course.Con tinue wound care as ordered.F/ U with Dr. Friedman as planned. Edema of l ower extremity 641539536 R60.0 chronic BLEright greater than left [id number] TATI CURRIE [address] [address] 09/10/2023 06:52:27 09/15/2023 13:31:46 Bacteremia 0072541 R78.81 continueMS SA right footcefazo mahesh 1 gm bid to ollow up with vascular Type 2 tiara betes mellitus 02179515 E11.9 I spoke with patient today. previously [...] bidmonitor glucose Osteomyeli tis of right foot 2914981161 408557 M86.271 S/P I&D and debridemen t. Vasc. surgeon (Dr. Friedman) felt that all diseased bone was removed.Co ntinue cefazolin 1 gm IV BID until 2/2 to complete 6 wk course.Con tinue wound care as ordered.F/ U with Dr. Friedman as planned. Edema of l ower extremity 985363613 R60.0 chronic BLEright greater than left [id number] TATI CURRIE [address] [place] [address] 09/14/2023 07:53:08 09/17/2023 08:57:48 Bacteremia 5027868 R78.81 continueMS SA right footcefazo mahesh 1 gm bid to 2/2follow up with vascular Type 2 tiara betes mellitus 86784473 E11.9 I spoke with patient today. previously [...] bidmonitor glucose Osteomyeli tis of right foot 4600838845 563321 M86.271 S/P I&D and debridemen t. Vasc. surgeon (Dr. Friedman) felt that all diseased bone was removed.Co ntinue cefazolin 1 gm IV BID until 2/2 to complete 6 wk course.Con tinue wound care as ordered.F/ U with Dr. Friedman as planned. Edema of l ower extremity 319296165 R60.0 chronic BLEright greater than left [id number] TATI CURRIE [address] [address] 09/17/2023 08:23:28 09/22/2023 11:50:26 Bacteremia 4713401 R78.81 continueMS SA right footcefazo mahesh 1 gm bid to 2/2follow up with vascular Type 2 tiara betes mellitus 24742474 E11.9 lispro SSChumulin /reg 70/30 30 units bidmonitor glucose Osteomyeli tis of right foot 9546404492 506012 M86.271 S/P I&D and debridemen t. Vasc. surgeon (Dr. Friedman) felt that all diseased bone was removed.Co ntinue cefazolin 1 gm IV BID until 2 to complete 6 wk course.Con tinue wound care as ordered.F/ U with Dr. Friedman as planned. Edema of l ower extremity 555296982 R60.0 chronic BLEright greater than left [id number] TATI CURRIE [address] [address] 09/21/2023 07:59:18 09/29/2023 08:59:51 Bacteremia 0389954 R78.81 continueRI SA right footcefazo mahesh 1 gm bid to 2/ollow up with vascular Type 2 tiara betes mellitus 55881559 E11.9 lispro SSChumulin /reg 70/30 30 units bidmonitor glucose Osteomyeli tis of right foot 2875483388 773299 M86.271 S/P I&D and debridemen t. Vasc. surgeon (Dr. Friedman) felt that all diseased bone was removed.Co ntinue cefazolin 1 gm IV BID until 09/24 to complete 6 wk course.Con tinue wound care as ordered.F/ U with Dr. Friedman as planned. Edema of l ower extremity 254964296 R60.0 chronic BLEright greater than left [id number] TATI CURRIE [address] [address] 09/24/2023 12:21:41 09/29/2023 13:31:08 Bacteremia 8851531 R78.81 resolved Type 2 tiara betes mellitus 60667463 E11.9 humulin/re g 70/30 50 units bid Chronic ki dney disease 355215817 N18.9 monitor labsavoid nephrotoxi c meds Gastroesop hageal reflux disease without esophagitis 208229730 K21.9 mag ox 400 mg daily to 08/30omepraz ole 20 mg daily Gout 92623637 M10.9 allopurino l 100 mg dailyD3 1250 j31lteq Hyperlipidemia 44097889 E78.5 fenofibrat e 160 mg daily Hypothyroidism 61399081 E03.9 TSH WNL in 11/2022Moni tor as outptcurre ntly not on medication . Essential hypertension 01333506 I10 lasix 20 mg dailyhydra lazine 25 mg bidtoprol 25 mg daily Osteomyeli tis of right foot 2785528142 996392 M86.271 S/P I&D and debridemen t. Vasc. surgeon (Dr. Friedman) felt that all diseased bone was removed.co mpleted IV cefazolin 1 gm IV BID 09/24/23Cont inue wound care as ordered.F/ U with Dr. Friedman as planned. Hypomagnesemia 595468466 E83.42 monitor outpt labs Vitamin D deficiency 347 14857 E55.9 Continue ergocalcif denisse 50,000 IU every 14 days.Monit or levels [id number] Janee Davis MD [address] [place] [place] [address] 12/28/2023 15:33:48 01/13/2024 12:52:53 Chronic diastolic heart failure 737370101 I50.32 Appears euvolemic. Continue furosemide 40 mg qd and hydralazin e 25 mg BID.Monito r resp. status, fluid status, wts and labs. Paroxysmal atrial fibrillation 350452751 I48.0 Rate in good control on diltiazem 120 mg qd.Continu e eliquis 5 mg BID for AC.Monitor HR and bleeding risk. Type 2 tiara betes mellitus 92456314 E11.9 This AM FBS was 88. Last time she was here fastings tended to be ok, but with high sugars later in the day.HgA1C was 7.1 this AMContinue Humulin 70/30 20U BID and SSI.Monito r fingerstic ks TID Chronic ki dney disease 389268659 N18.32 Back to baseline.C ontinue to avoid nephrotoxi c meds as able.Monit or labs.Renal consult prn. Essential hypertension 42505489 I10 BP borderline at times, but acceptable for age.BP goal for this elderly woman is permissive HTN, with SBP<150 and DBP<90Cont inue meds as above.Rebeca tor BP and labs. Gastroesop hageal reflux disease without esophagitis 237046978 K21.9 No current sxs.Contin ue omeprazole 20 mg qdMonitor sxs. Gout 75280070 M10.09 No current sxs.Contin ue allopurino l 100 mg qdMonitor for flare. Hyperlipidemia 11550100 E78.49 Continue fenofibrat e 160 mg qdMonitor as outpt. Hypothyroidism 81104708 E03.8 In hx.TSH WNL inpt.Monit or as outpt Hypomagnesemia 099739140 E83.42 Continue Mg+ 400 mg BID.Monito r levels Vitamin D deficiency 347 10484 E56.8 Vit D supplement is ordered as cholecalci ferol 5000 IU every 14 days.Is supposed to be ergocalcif denisse 50,000 IU qd, will change.Mon itor levels Anemia 606835395 D64.89 Multifacto rial.Follo ws with Dr. White and gets procrit every few wks (has been irregular due to hospitaliz ations).Mo nitor labs Closed bim alleolar fracture of right ankle 1387793889 5242970 S82.841D Four wks from original injury.Con tinue PT/OT for strengthen ing, balance, gait training, safety and function.C ontinue APAP 1000 mg q 4 hrs prn, NTE 3000 mg/dContin ue fall precaution s.Monitor for safety.F/U with ortho as planned. [id number] TATI CURRIE [place] [address] [place] [address] rd [place] [address] 01/03/2024 13:24:31 01/05/2024 10:19:57 Chronic diastolic heart failure 761225173 I50.32 continue lasix 40 mg dailyconti nue potassium 20 meq daily Paroxysmal atrial fibrillation 120645423 I48.0 Cardizem 120 mg dailyconti nue eliquis 2.5 mg BID Type 2 tiara betes mellitus 74910955 E11.9 With some hypoglycem ia.continu e Humulin 70/30 20 units BID and SSI continued. continue fingerstic ks QID Essential hypertension 87386265 I10 BP goal for this elderly woman is permissive HTN, with SBP<150 and DBP<90Cont inue lasix 40 mg qd, hydralazin e 25 mg BID lasix 40 mg dailyMonit or BP and labs. Open wound of left lower leg 4375176296 2155382 S81.802A patient son reports that she gets wound care at [facility] [place] and she suppose to have calcium alginate and zinc applied to and around left lower extremity wound. He wants this to continue until wound MD can eval.wound MD alarcon and treatwill ordered to cleanse wound with NS apply calcium alginate and zinc ben wound. [id number] TATI CURRIE [address] [address] 01/07/2024 14:10:11 01/10/2024 13:39:22 Open wound of left lower leg 4864283113 1371768 S81.802A patient son reports that she gets [facility] and she suppose to have calcium alginate and zinc applied to and around left lower extremity wound. He wants this to continue until wound MD can eval.wound MD alarcon and treatwigeovanny ordered to cleanse wound with NS apply calcium alginate and zinc ben wound. Chronic di astolic heart failure 383344999 I50.32 continue lasix 40 mg dailyconti nue potassium 20 meq daily Paroxysmal atrial fibrillation 388366009 I48.0 Cardizem 120 mg dailyconti nue eliquis 2.5 mg BID Type 2 tiara betes mellitus 46075908 E11.9 With some hypoglycem ia.continu e Humulin 70/30 20 units BID and SSI continued. continue fingerstic ks QID Essential hypertension 80531706 I10 BP goal for this elderly woman is permissive HTN, with SBP<150 and DBP<90Cont inue lasix 40 mg qd, hydralazin e 25 mg BID lasix 40 mg dailyMonit or BP and labs. [id number] TATI CURRIE [address] [address] 01/11/2024 10:33:27 01/13/2024 16:16:44 Open wound of left lower leg 1152774318 7545145 S81.802A patient son reports that she gets wound care at [facility] and she suppose to have calcium alginate and zinc applied to and around left lower extremity wound. He wants this to continue until wound can eval.wound MD alarcon and quinton ordered to cleanse wound with NS apply calcium alginate and zinc ben wound. Chronic di astolic heart failure 275373190 I50.32 continue lasix 40 mg dailyconti nue potassium 20 meq daily Paroxysmal atrial fibrillation 063706389 I48.0 Cardizem 120 mg dailyconti nue eliquis 2.5 mg BID Type 2 tiara betes mellitus 11096625 E11.9 With some hypoglycem ia.continu e Humulin 70/30 20 units BID and SSI continued. continue fingerstic ks QID Essential hypertension 63789287 I10 BP goal for this elderly woman is permissive HTN, with SBP<150 and DBP<90Cont inue lasix 40 mg qd, hydralazin e 25 mg BID lasix 40 mg dailyMonit or BP and labs. Anemia 918741937 D64.89 H/H trending down this weekstarte d procrit 10/16 and scheduled for bi weeklyunsu re when she last receivedwi ll follow up with patient son. [id number] TATI CURRIE [place] [address] [facility] [place] [address] 01/13/2024 10:07:39 01/25/2024 10:52:36 Open wound of left lower leg 5148527077 4779109 S81.802A patient son reports that she gets wound care at [facility] and she suppose to have calcium alginate and zinc applied to and around left lower extremity wound. He wants this to continue until wound can eval.wound MD alarcon and quinton ordered to cleanse wound with NS apply calcium alginate and zinc ben wound. Chronic di astolic heart failure 666628317 I50.32 continue lasix 40 mg dailyconti nue potassium 20 meq daily Paroxysmal atrial fibrillation 311096976 I48.0 Cardizem 120 mg dailyconti nue eliquis 2.5 mg BID Type 2 tiara betes mellitus 58583263 E11.9 With some hypoglycem ia.continu e Humulin 70/30 20 units BID and SSI continued. continue fingerstic ks QID Essential hypertension 38073406 I10 BP goal for this elderly woman is permissive HTN, with SBP<150 and DBP<90Cont inue lasix 40 mg qd, hydralazin e 25 mg BID lasix 40 mg dailyMonit or BP and labs. Anemia 546642106 D64.89 HX of normochrom ic normocytic anemiaH/H trending down this week - tends to fluctuates tarted procrit 63528 10/16 and scheduled for bi weeklyRece ived doses on 10/27, 11/10, 11/24, 12/19 and 01/11/24 Bimalleola r fracture of ankle 752042635 S82.841A chronic with [facility] arthropath y with deformity ankle and midfoothx of infection with osteomyeli tis August 2023follow ed by [facility]- last seen on 01/07/24- recommend 2 tx option 1.conserva tive treatment wit off loading as much as possible, wear heel protector boot.2. Surgical reconstruc tion [id number] TATI CURRIE [address] [address] 01/20/2024 09:44:29 01/25/2024 11:59:00 Open wound of left lower leg 4712061828 6976341 S81.802A continue calcium alginate and zinc left lower extremity woundwound MD alarcon and quinton ordered to cleanse wound with NS apply calcium alginate and zinc ben wound. Chronic di astolic heart failure 340473855 I50.32 stablecont inue lasix 40 mg dailyconti nue potassium 20 meq daily Paroxysmal atrial fibrillation 828946237 I48.0 HR 69Cardizem 120 mg dailyconti nue eliquis 2.5 mg BID Type 2 tiara betes mellitus 48543045 E11.9 With some hypoglycem ia.continu e Humulin 70/30 20 units BID and SSI continued. continue fingerstic ks QID Anemia 663577139 D64.89 HX of normochrom ic normocytic anemiaH/H trending down this week - tends to fluctuates tarted procrit 21971 2/24 and scheduled for bi weeklyRece ived doses on 10/27, 11/10, 11/24, 12/19 and 01/11/24 Bimalleola r fracture of ankle 542869480 S82.841A chronic with [facility] arthropath y with deformity ankle and midfoothx of infection with osteomyeli tis August 2023follow ed by [facility]- last seen on 01/07/24- recommend 2 tx option 1.conserva tive treatment wit off loading as much as possible, wear heel protector boot.2. Surgical reconstruc tion [id number] TATI CURRIE [place] [address] [place] [address] rd [place], [place] [address] 01/25/2024 10:02:09 01/31/2024 15:51:53 Open wound of left lower leg 9936804786 8217877 S81.802A continue calcium alginate and zinc left lower extremity woundwound MD alarcon and quintno ordered to cleanse wound with NS apply calcium alginate and zinc ben wound. Chronic di astolic heart failure 676851563 I50.32 continue lasix 40 mg dailyconti nue potassium 20 meq daily Paroxysmal atrial fibrillation 515346668 I48.0 Cardizem 120 mg dailyconti nue eliquis 2.5 mg BID Type 2 tiara betes mellitus 66787966 E11.9 no recent hypoglycem ic events.con tinue Humulin 70/30 20 units BID and SSI continued. continue fingerstic ks QID Anemia 792640998 D64.89 recent labs stable,HX of normochrom ic normocytic anemiaH/H trending down this week - tends to fluctuates tarted procrit 74932 10/16 and scheduled for bi weeklyRece ived doses on 10/27, 11/10, 11/24, 12/19 and 01/11/24 Bimalleola r fracture of ankle [id number] S82.841A dressing intact, pain is controlled chronic with charcot arthropath y with deformity ankle and midfoothx of infection with osteomyeli tis August 2023foll ed by [facility]- last seen on 01/07/24- recommend 2 tx option 1.conserva tive treatment wit off loading as much as possible, wear heel protector boot.2. Surgical reconstruc tion [id number] TATI CURRIE [address] [place] [address] 01/28/2024 15:29:14 02/01/2024 08:26:24 Open wound of left lower leg [id number] [id number] S81.802A [facility] with NS apply calcium alginate and zinc ben wound.elev ate left foot/heel when sitting to keep DTI well perfused Chronic di astolic heart failure 705458860 I50.32 continue lasix 40 mg dailyconti nue potassium 20 meq daily Paroxysmal atrial fibrillation 256730314 I48.0 Cardizem 120 mg dailyconti nue eliquis 2.5 mg BID Type 2 tiara betes mellitus 96817529 E11.9 no recent hypoglycem ic events.con tinue Humulin 70/30 20 units BID and SSI continued. continue fingerstic ks QID Anemia 708589622 D64.89 recent labs stable,HX of normochrom ic normocytic anemiacont inue procrit 58830 10/16 and scheduled for bi weekly Bimalleola r fracture of ankle [id number] S82.841A she gets wound care [facility] was seen on 01/23 and will f/u in 2 weeksconti chadde with current dressing change. 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 Surgical reconstruc tion [id number] TATI CURRIE [address] [place] [address] 02/01/2024 10:24:39 02/04/2024 08:49:56 Open wound of left lower leg [id number] 8640823 S81.802A continue to cleanse wound with NS apply calcium alginate and zinc ben wound.elev ate left foot/heel when sitting to keep DTI well perfused Chronic di astolic heart failure 862768943 I50.32 continue lasix 40 mg dailyconti nue potassium 20 meq daily Paroxysmal atrial fibrillation 851877575 I48.0 Cardizem 120 mg dailyconti nue eliquis 2.5 mg BID Type 2 tiara betes mellitus 31033952 E11.9 no recent hypoglycem ic events.con tinue Humulin 70/30 20 units BID and SSI continued. continue fingerstic ks QID Anemia 295833476 D64.89 recent labs stable,HX of normochrom ic normocytic anemiacont inue procrit 14987 10/16 and scheduled for bi weekly Bimalleola r fracture of ankle 956405457 S82.841A She gets [facility] care [facility] was seen on 01/23 and will f/u in 2 weeksconti nue with current dressing change. 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 Surgical reconstruc tion Chronic ki dney disease 311567286 N18.32 monitor labsavoid nephrotoxi c meds Essential hypertension 14512270 I10 blood pressure has been stable 120-130sBP goal for this elderly woman is permissive HTN, with SBP<150 and DBP<90Cont inue lasix 40 mg qd, hydralazin e 25 mg BID lasix 40 mg dailyMonit or BP and labs. Gout 53658198 M10.09 allopurino l 100 mg dailynot reported recent flare up. [id number] TATI CURRIE [address] [place] [address] 02/04/2024 09:44:41 02/07/2024 14:37:26 Open wound of left lower leg [id number] 7188312 S81.802A continue to cleanse wound with NS apply calcium alginate and zinc ben wound.elev ate left foot/heel when sitting to keep DTI well perfused Chronic di astolic heart failure 450526832 I50.32 euvolemicc ontinue lasix 40 mg dailyconti nue potassium 20 meq daily Paroxysmal atrial fibrillation 962040671 I48.0 Cardizem 120 mg dailyconti nue eliquis 2.5 mg BID Type 2 tiara betes mellitus 66769080 E11.9 BGLs mainly under 200's, a few noted in the 400s. patient and son are very particular about insulin dosing, so will not adjust.con tinue Humulin 70/30 20 units BID and SSI continued. continue fingerstic ks QID Anemia 604745375 D64.89 continue procrit 72600 10/16 and scheduled for bi weekly Bimalleola r fracture of ankle 215933160 S82.841A She [facility] was seen on 01/23 and [...] protector boot.2. Surgical reconstruc tion Essential hypertension 56088750 I10 BP goal for this elderly woman is permissive HTN, with SBP<150 and DBP<90Cont inue lasix 40 mg qd, hydralazin e 25 mg BID lasix 40 mg dailyMonit or BP and labs. [id number] TATI CURRIE AMELIA [address] [place] [address] 02/07/2024 11:53:48 02/09/2024 16:49:24 Open wound of left lower leg [id number] 2416586 S81.802A continue to cleanse wound with NS apply calcium alginate and zinc ben wound.elev ate left foot/heel when sitting to keep DTI well perfused Chronic di astolic heart failure 803527242 I50.32 continue lasix 40 mg dailyconti nue potassium 20 meq daily Paroxysmal atrial fibrillation 458611319 I48.0 Cardizem 120 mg dailyconti nue eliquis 2.5 mg BID Type 2 tiara betes mellitus 45034556 E11.9 continue Humulin 70/30 20 units BID and SSI continued. continue fingerstic ks QID Anemia 567083655 D64.89 continue procrit 69183 224 and scheduled for bi weekly Essential hypertension 05225482 I10 Continue lasix 40 mg qd, hydralazin e 25 mg BID lasix 40 mg dailyMonit or BP and labs. [id number] TATI CURRIE [address] [address] 02/10/2024 09:22:17 02/16/2024 10:42:27 Open wound of left lower leg [id number] 0992602 S81.802A continue to cleanse wound with NS apply calcium alginate and zinc ben wound. PCC updatedele vate left foot/heel when sitting to keep DTI well perfused Chronic di astolic heart failure 394227221 I50.32 continue lasix 40 mg dailyconti nue potassium 20 meq daily Paroxysmal atrial fibrillation 917927262 I48.0 Cardizem 120 mg dailyconti nue eliquis 2.5 mg BID Type 2 tiara betes mellitus 42635931 E11.9 continue Humulin 70/30 20 units BID and SSI continued. continue fingerstic ks QIDno reported hypo/hyper glycemic events. Essential hypertension 72094076 I10 Continue lasix 40 mg qd, hydralazin e 25 mg BID lasix 40 mg dailyMonit or BP and labs. [id number] Janee Davis MD [address] [address] 02/14/2024 21:04:27 03/14/2024 07:28:32 Chronic diastolic heart failure 646704981 I50.32 Appears euvolemic. Continue lasix 40 mg qd and KCl 20 meq qd to prevent hypokalemi a.Monitor resp. status, fluid status, wts and labs. Paroxysmal atrial fibrillation 965686704 I48.0 Rate in good control on meds as above.Cont inue eliquis 2.5 mg BID for AC.Monitor HR and bleeding risk. Type 2 tiara betes mellitus 05405987 E11.9 In adequate control.Co ntinue Humulin 70/30 20U BID and SSIContinu e fingerstic ks QID Essential hypertension 72783771 I10 In good control.Co ntinue lasix 40 mg qd, hydralazin e 25 mg BID, diltiazem 120 mg qd, and lasix 40 mg qdMonitor BP and labs. 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 Essential hypertension 64467865 I10 Continue lasix 40 mg qd, hydralazin e 25 mg BID lasix 40 mg dailyMonit or BP and labs. Chronic di astolic heart failure 506807675 I50.32 continue lasix 40 mg dailyconti nue potassium 20 meq daily Paroxysmal atrial fibrillation 562836016 I48.0 Cardizem 120 mg dailyconti nue eliquis 2.5 mg BID Type 2 tiara betes mellitus 65132131 E11.9 continue Humulin 70/30 20 units BID and SSI continued. continue fingerstic ks QIDno reported hypo/hyper glycemic events. Chronic ki dney disease 441523821 N18.32 Back to baseline.C ontinue to avoid nephrotoxi c meds as able.Monit or labs.Renal consult prn. Closed bim alleolar fracture of right ankle 1734605386 2463894 S82.841D Continue APAP 1000 mg q 4 hrs prn, NTE 3000 mg/dContin ue fall precaution s.Monitor for safety.F/U with ortho Gastroesop hageal reflux disease without esophagitis 622330150 K21.9 Continue omeprazole 20 mg qd Gout 19192567 M10.09 Continue allopurino l 100 mg qdMonitor for flare. Hyperlipidemia 87886742 E78.49 Continue fenofibrat e 160 mg qdMonitor as outpt. Hypothyroidism 52909285 E03.8 not on medsTSH WNL inpt.Monit or as outpt Hypomagnesemia 227963275 E83.42 Continue Mg+ 400 mg BID.Monito r levels Vitamin D deficiency 347 00519 E56.8 ergocalcif denisse 50,000 IU qdMonitor levels Anemia 637008361 D64.89 Multifacto rial.justo nue procrit 64907 bi weekly Health Concerns Section Related Observation LastModified by Organization Detai ls LastModified Time None Recorded Concern Status LastModified by Organization Details LastModified Time None Recorded Advance Directives Directive Y: Payers Insurance Date Sequence Insurance Name Policy Number Policy Bravo Covered Member ID Bravo Member ID Guarantor Name 01/25/2024 1 [place] [employer] Susan Laurent [id number] Susannicolas Rodríguezchiki 03/14/2024 2 [place] [id number] Susan Rodríguezchiki [id number] Susan Rodríguezchiki Notes Date Note Type [...] broke her right ankle, most recently at [facility] for a CHF exacerbation.She initially presented to the [facility] on 11/26 after an unknown injury. Found to have an Acute displaced bimalleolar fracture with ankle mortise disruption. Complicated by chronic pain from right foot Charcot arthropathy. She was splinted and instructed in strict NWB status and d/c to [facility]. Of note she had just been dxed with new onset Afib on 11/24 and started on diltiazem and apixaban.Returned to [facility] on 12/13, several days after d/c from [facility], because of difficulty ambulating at home and unable to help her due to his own issues. D/C on 12/15 to [facility].Was sent to the [facility] ED on 12/17 because of SOB and [...] no acute nursing concerns. TATI CURRIE [address], [address], [place], [address], [employer] [facility] 02/04/2024 11:01:05 02/07/2024 text/html ROS as noted [...] broke her right ankle, most recently at [facility] for a CHF exacerbation.She initially presented to the [facility] on 11/26 after an unknown injury. Found to have an Acute displaced bimalleolar fracture with ankle mortise disruption. Complicated by chronic pain from right foot Charcot arthropathy. She was splinted and instructed in strict NWB status and d/c to [facility]. Of note she had just been dxed with new onset Afib on 11/24 and started on diltiazem and apixaban.Returned to [facility] on 12/13, several days after d/c from [facility], because of difficulty ambulating at home and unable to help her due to his own issues. D/C on 12/15 to [facility].Was sent to the [facility] ED on 12/17 because of SOB and AMS.Labs and vitals were WNL (except Na+147 and BNP 222) CXR showed pulmonary edema with small pleural effusions. Neg for RSV/influenza and covid.EKG showed NSR and she was continued on diltiazem and apixaban.She was txed with IV lasix and K+A left dhillon wound was followed by wound care. TATI CURRIE [address] [facility] [address] [facility], [address], [place], [address], [facility] 02/07/2024 14:37:38 02/10/2024 text/html ROS as noted [...] and s/p MSSA sepsis. TATI CURRIE [address], [address], [place], [address], [facility] 02/10/2024 12:44:47 02/14/2024 text/html I am seeing this 88 yo woman for an acute visit today to f/u on RLE fx, ulcers and NWB status.Son has had concerns about mother refusing wound care and this is being addressed by nursing staff.She was seen at the [facility] wound clinic on 02/06 and it was [...] s/p MSSA sepsis. Janee Davis MD [address], [address], [place], [address], [employer] [facility] 03/11/2024 19:10:29 02/18/2024 text/html This is an 88 yo woman due for discharge today. Patient has been in and out of rehabs and hosp since 11/26 when she broke her right ankle, most recently at [facility] for a CHF exacerbation.She initially presented to the [facility] on 11/26 after an unknown injury. Found to have a right Acute displaced bimalleolar fracture with ankle mortise disruption. Complicated by chronic pain from right foot Charcot arthropathy. She was splinted and instructed in strict NWB status and d/c to [facility]. Of note she had just been dxed with new onset Afib on 11/24 and started on diltiazem and apixaban.Returned to [facility] on 12/13, several days after d/c from [facility], because of difficulty ambulating at home and unable to help her due to his own issues. D/C on 12/15 to [facility].Was sent to the [facility] ED on 12/17 because of SOB and AMS.Labs and vitals were WNL (except Na+147 and BNP 222) CXR showed pulmonary edema with small pleural effusions. Neg for RSV/influenza and covid.EKG showed NSR and she was continued on diltiazem and apixaban.She was txed with IV lasix and K+A left dhillon wound was followed by wound care.She was transferred to [facility] was done on 12/23 [...] and s/p MSSA sepsis. TATI CURRIE [address], [address], [place], [address], [facility] 02/18/2024 14:26:35 OBGyn Episode No OBEpisode recorded.
== END 2025-07-09 13:55 | disposition home or self-care (01) ==
LOC: HO.HCS 13:33
PROVIDERS: PCP Internal Medicine; Visit Provider Internal Medicine Cardiovascular Disease
DX: I99.8 Other disorder of circulatory system (principal); I50.9 Heart failure, unspecified; I48.91 Unspecified atrial fibrillation
CPT/HCPCS: 99214; G2211

== ENCOUNTER → 2025-07-09 13:32 | Outpatient (BNVA) | payer MEDICARE, SELFPAY | PROVIDERS: PCP Internal Medicine; Visit Provider Internal Medicine Cardiovascular Disease | DX: I99.8 Other disorder of circulatory system (principal); I50.9 Heart failure, unspecified; I48.91 Unspecified atrial fibrillation | CPT/HCPCS: 99212 ==

== ENCOUNTER 2025-07-10 13:11 | Outpatient (AMB) | payer MEDICARE, SELFPAY ==
--- NOTE | 2025-07-10 13:12 | A.OFFVIS_ITS ---
Vital Signs 3 07/10/25 13:18 Height 5 ft 5 in BMI Reason not done Patient refused/unable BP 122/78 Blood Pressure Location Rt brachial Position Sitting Pulse 67 Pulse Source Pulse Oximeter Pulse Oximetry (%) 100 Oxygen Delivery Method Room Air Intake Visit Reasons: DM Intake Note: Patient presents today to establish treatment for Type 2 Diabetes Mellitus: Last Diabetic eye exam was on: 07/25/24, [facility] Last Podiatry exam was on: Patient does not see a Application Services Manager Most recent HbA1c: 6.8%, 07/10/2025 Random Glucose: 237 mg/dL Electric Range Servicer Required: No Accompanied by: Son Allergies codeine (CODEINE) Allergy (Intermediate, Verified 06/28/25 12:44) BACK PAIN pollen extracts (POLLEN) Allergy (Mild, Verified 06/28/25 12:44) SINUS IRRITATION metoprolol Adverse Reaction (Intermediate, Verified 06/28/25 12:44) Hallucinations HPI Comments Details: 89 years old female with past medical history of type 2 diabetes, vitamin-D deficiency, CKD stage 4, heart failure, cardiomyopathy, atrial fibrillation, seen in the office for evaluation and management of type 2 diabetes. The patient was diagnosed with Type 2 Diabetes Mellitus at the age of 56. She is currently 89 years old. Initially started treatment with Metformin but transitioned to insulin due to kidney issues. Currently on 70/30 Humulin insulin twice a day with a sliding scale at night (5 to 25 units). A1c is currently at 6.2%, which is considered overly controlled for her age, although this is likely an underestimation given that the patient have anemia secondary to CKD She experiences blood glucose spikes to 200-300 mg/dL after eating but does not frequently experience hypoglycemia. Complications include kidney disease and a history of Charcot foot due to diabetes. Current Medications: - 70/30 Humulin insulin twice daily with a sliding scale at night. - Previously on Metformin but discontinued due to kidney issues. Blood Sugar monitoring: - Blood glucose is checked twice daily with current meter limitations. - Recent blood glucose levels mentioned: 121 mg/dL in the morning, 250 mg/dL post-meal. Hypoglycemia: - No recent incidences of hypoglycemia noted. - Uses orange juice for management if necessary. Macrovascular/microvascular Complications: No history of CVA, TX or PVD Patient has history of CKD stage 4, denies history of neuropathy or retinopathy Diet and Exercise: - No specific diet or exercise routine noted in the conversation. Specialist Visits: - Regular follow-ups with a technology architect for atrial fibrillation. - History of podiatric issues with a recent surgery involving a titanium erick. Interval history 07/10/25 She reports 1 episode of hypoglycemia, but overall her BG has been well controlled Appetite is OK No recent hospitalization Physical exam General: Well appearing. NAD. Sitting in the wheelchair Neck/Thyroid: Thyroid not palpable, no nodules. CV: RRR, no murmur. Edema present in both lower extremities Resp:Lungs clear to auscultation bilaterally Abdomen: Soft, nontender. nondistended Extremities/Neuro: No tremor of outstretched hands. Charcot foot deformity of right foot Labs Laboratory Tests 04/11/25 06/05/25 06/12/25 11:40 11:09 14:38 WBC 6.7 Hgb 10.6 L Sodium 143 Potassium 4.2 Creatinine 2.23 H Estimated GFR 21 Glucose (Clinic) 150 H Hemoglobin A1c % 6.2 H Calcium 9.4 Albumin 3.6 HDL Cholesterol 40 L 25-OH Vitamin D Total 26.8 L TSH 1.25 CGM/Glucose logs Interpretation: Based on CGM data and the glucose logs (not uploaded), average blood sugars with the patient was around 165, which I think is appropriate for this patient [facility] Medical History Lymphedema Diabetes mellitus BARB (acute kidney injury) Diabetes mellitus with coincident hypertension Hyperlipidemia CKD (chronic kidney disease) stage 4, GFR 15-29 ml/min Atrial fibrillation Osteomyelitis Gout Anemia Hx of type A viral hepatitis Obesity Surgical History History of foot surgery History of surgical removal of skin lesion History of biopsy History of excision of lesion H/O varicose vein ligation History of cholecystectomy Family History Father Gastric cancer Mother Acute CVA (cerebrovascular accident) Diabetes Brother Colon cancer Social History Household Members: Family Household Members Other:: sonvivek Housing: House Do you presently have visiting nurse or other home services: No Alcohol intake: never Patient Tobacco Use Status: Never used Tobacco e-Cigarette/Vaping Use: Never Used Second Hand Smoke Exposure: No Advance Directives Date on File: 07/16/21 service: No Current occupational status: retired Cognitive needs: Yes (walker ) Hearing needs: No Vision needs: Yes Physical Exam Vital Signs: Last Vital Signs Pulse 67 07/10/25 13:18 BP 122/78 07/10/25 13:18 Pulse Ox 100 07/10/25 13:18 Oxygen Delivery Method Room Air 07/10/25 13:18 Office Procedures Glucose Monitoring Details 48411 - Glucose Monitoring, continuous Procedure code (CPT) selection complete Results AMB Hemoglobin A1c 2 AMB Hemoglobin A1c 6.8 % Last Edit by JOHNY Schuler on 07/10/25 13:27 Results Reviewed Results Reviewed: Laboratory Last Values Glucose (Clinic) 237 mg/dL (60-115) H 07/10/25 13:19 Hgb A1c (Clinic) 6.8 % (4.0-6.0) H 07/10/25 13:21 Assessment & Plan Assessment & Plan (1) Diabetes mellitus: Code(s): E11.9 - Type 2 diabetes mellitus without complications Category: Medical Qualifiers: Diabetes mellitus type: type 2 Diabetes mellitus buttermaker helper insulin use: without penitentiary use Diabetes mellitus complication status: with other specified complication Qualified Code(s): E11.69 - Type 2 diabetes mellitus with other specified complication Plan: Elderly female patient with type 2 diabetes, have been for many years on mixed insulin, which increases her risk for hypoglycemia. Current glycaemic control is difficult to assess as patient has anemia of chronic disease, with rends her A1c of 6.2% not reliable. After a long discussion of pros and cons, patient agreed to transition to a different type of insulin. Given all main concern for hypoglycemia, we will also able to I agreed that the patient could use a CGM. After discuss pros and cons, patient agreed that we should aim for a goal A1c of 7-8%. After her transition from 70/30 to Lantus and jardiance, she has been noticed to be hyperglycemic, specially after meals and at night. Plan - Continue Lantus 24 units daily in the morning - Increase Jardiance 25 mg in the morning for kidney protection and glucose control. - Continue Lispro SS as in pt instructions - Consider Ozempic if further intervention is needed. - Continue regular blood sugar monitoring and encourage the use of a continuous glucose monitor (CGM) for better management. - Educate patient and caregiver on hypo- and hyperglycemia management. - Reinforce the importance of regular foot checks and follow-up with specialists. - For hypoglycemia (<70 mg/dL): Consume 15g of carbohydrates and recheck in 15 minutes. - For hyperglycemia (>250 mg/dL): Monitor closely, hydrate, and contact the provider if symptoms like nausea or rapid breathing occur. - Educate on the new insulin regimen and ensure understanding of the importance of not skipping doses. Plan 30 minutes spent reviewing previous records, labs, imaging, education and documenting in the chart Orders: Orders 2 AMB Hemoglobin A1c Today E11.59 - Type 2 diabetes mellitus with other circulatory complications, I15.2 - Hypertension secondary to endocrine disorders AMB Glucose Monitoring Today E11.9 - Type 2 diabetes mellitus without complications, Z79.4 - FPC (current) use of insulin Medications: New 2 blood sugar diagnostic (FreeStyle Lite Strips) As directed to check BG 3-4 times per day 100 ea 3RF E11.9 - Type 2 diabetes mellitus without complications, Z79.4 - superintendent container terminal (current) use of insulin empagliflozin (Jardiance) 25 mg PO DAILY 30 tabs 3RF E11.9 - Type 2 diabetes mellitus without complications, Z79.4 - FPC (current) use of insulin Discontinued 2 empagliflozin (Jardiance) Discontinued Reason: Doctor's Order 10 mg PO DAILY 30 tabs 0RF Coding Level of Care Code Tele Est Pt Level 4 (04321) Diagnoses Type 2 diabetes mellitus with other specified complication, without long-term current use of insulin E11.69 Diabetes mellitus type: type 2 Diabetes mellitus buttermaker helper insulin use: without buttermaker helper use Diabetes mellitus complication status: with other specified complication CPT Codes Details - CPT: 69282 - Glucose Monitoring, continuous ([id number])
[2025-07-10 13:18] VITALS: BP 122/78; PULSE 67; O2SAT 100
[2025-07-10 13:23] LABS: Glucose, Whole Blood 237 mg/dL (60-115)
--- OUTSIDE RECORDS SUMMARY | 2025-07-11 05:26 | XMS_ITS | Clinical Summary ---
Author Organization [facility] Address [address] [address] Phone Care Team Providers Care Pants Closer Name Role Phone Christopher Zamudio MD Primary Care Provider [phone] Allergies Active Allergy Reactions Criticality Noted Date [...] taking.Reported on 04/03/2025 epoetin jayna (EPOGEN,PROCRIT ) 17147 UNIT/ML injectionIndica tions:Anemia due to Renal Failure [...] DILTIAZEM CD 120 MG DAILY 5 Active hydrALAZINE 25 MG tablet Take 1 tablet (25 mg total) by mouth in the morning and 1 tablet (25 mg total) in the evening. 180 tablet 5 08/20/20 Active Active Problems Problem Noted Date Diagnosed [...] Overview (09/16/2022): [facility] History of malignant basal cell neoplasm of skin 01/27/2019 Overview (09/16/2022): lip Encounters Date Type Department Care Team Description 05/22/2025 Refill [facility] [address] [address] Neo Rollins MD from Last 3 Months [...] Office Visit [facility] [address] [address] Neo Rollins MD [address] [address] Health Maintenance Due Date Last [...] average glucose, using the formula of the [id number] Average Glucose study (ADAG), Diabetes Care, Vol.31,#8, Mar. 2007 04/18/2019 10:3 4 AM EDT us Christopher Zamudio MD LAB BLOOD ORDERABLES Final Resu lt NIRALITONEY from Last 3 Months or Most Recently Relevant to Health [place] [address] [facility] JACEY Medicare Medicaid [place] Medicare [facility] Medicaid [place] Care Teams Pants Closer Relationship Specialty Start Date End Date Christopher Zamudio MD [address] [place] [address] PCP - General 09/02/20
--- OUTSIDE RECORDS SUMMARY | 2025-07-11 05:26 | XMS_ITS | Patient Health Record ---
Author Organization [facility] Address [address] [place] [address] Care Team Providers Care Forensic Examiner Name Role Phone PriceWilber [phone] Reason For Referral No Information Plan Of Treatment No Information
--- OUTSIDE RECORDS SUMMARY | 2025-07-11 05:26 | XMS_ITS | Clinical Summary ---
Author Organization [facility] Address [address] [place] [address] Phone Care Team Providers Care Candy Counter Clerk Name Role Phone Unknown, Unknown Primary Care [...] A & B HEALTH SAFETY NET FULL [email or web address] MEDEX SUPPLEMENT MEDICARE PART A & B [facility] FULL [email or web address] MEDEX SUPPLEMENT MEDICARE PART A & B [facility] FULL MEDEX SUPPLEMENT MEDICARE PART A & B [employer] FULL MEDEX SUPPLEMENT MEDICARE PART A & B [employer] FULL [email or web address] MEDEX SUPPLEMENT MEDICARE PART A & B [facility] FULL [employer] [place] MEDEX SUPPLEMENT MEDICARE PART A & B [facility] FULL Care Teams Candy Counter Clerk Relationship Specialty Start Date End Date Unknown, Unknown, PCP - General 12/21/18 Additional Source Comments The information contained in this document represents components of the legal health record. It is not the complete legal health record.[facility]
--- OUTSIDE RECORDS SUMMARY | 2025-07-11 05:26 | XMS_ITS | Clinical Summary ---
Author Organization [facility] Address [address] [place] [address] Phone Care Team Providers Care Associate Professor Of Anthropology Name Role Phone Christopher Zamudio MD Primary Care Provider Surgical History Surgery Date Site/Laterality Comments CHOLECYSTECTOMY PROCEDURE: HISTORICAL CHOLECYSTECTOMY; COMMENT: 1981 LEG SURGERY 1985 PROCEDURE: HISTORICAL LEG SURGERY; COMMENT: Vein ablation APPENDECTOMY PROCEDURE: HISTORICAL APPENDECTOMY; COMMENT: 1981 OTHER SURGICAL HISTORY 08/18/2023 Right PROCEDURE: GA INCISION BONE CORTEX FOOT; COMMENT: right, 5th metatarsal OTHER SURGICAL HISTORY 08/18/2023 Right PROCEDURE: GA BIOPSY BONE OPEN SUPERFICIAL; COMMENT: right, 5th proximal phalanx OTHER SURGICAL HISTORY 08/18/2023 Right PROCEDURE: GA SECONDARY CLOSURE SURG WOUND/DEHSN XTNSV/COMP Medical History [...] (HCC); COMMENT: [facility]. History of cataract 10/17/2020 DX:History o f cataract Type 2 diabetes mellitus wit h cataract (CMS/HCC V24, CMS/HCC V28) 10/17/2020 DX:Type 2 diabetes mellitus with cataract ([facility]) Arrhythmia 10/17/2020 DX:Arrhythmia Family History [...] Info) Description 07/24/2025 10:00 AM EST Treatment [facility] Occupational Therapy [address] [place] [phone] Hannah Haas P, OTR/L Health Maintenance [...] Documents on File Type Date Recorded Patient Haul Cane Brakeman Expl anation Health Care Decision (hx) 08/20/2023 AD العراقي DIRECTIVE Health Care Decision (hx) 08/20/2023 AD العراقي DIRECTIVE Care Teams Associate Professor Of Anthropology Relationship Specialty Start Date End Date Christopher Zamudio MD [address] [place] [address] PCP - General 09/10/16
== END 2025-07-10 14:01 | disposition home or self-care (01) ==
LOC: HO.ENCR 13:11
PROVIDERS: Visit Provider Student in an Organized Health Care Education/Training Program
DX: E11.59 Type 2 diabetes mellitus with other circulatory complications (principal); I15.2 Hypertension secondary to endocrine disorders; E11.69 Type 2 diabetes mellitus with other specified complication
CPT/HCPCS: 99214

== ENCOUNTER → 2025-07-10 13:11 | Outpatient (BNVA) | payer MEDICARE, SELFPAY | PROVIDERS: Visit Provider Student in an Organized Health Care Education/Training Program | DX: E11.22 Type 2 diabetes mellitus with diabetic chronic kidney disease (principal); I13.0 Hypertensive heart and chronic kidney disease with heart failure and stage 1 through stage 4 chronic kidney disease, or unspecified chronic kidney disease; N18.4 Chronic kidney disease, stage 4 (severe); I50.9 Heart failure, unspecified; Z79.4 Long term (current) use of insulin | CPT/HCPCS: 82947; 83036; 95250; 99212 ==

== ENCOUNTER 2025-07-18 11:28 | Outpatient (REF) | payer MEDICARE, SELFPAY ==
[2025-07-18 11:48] LABS: MANUAL DIFF FLAG NO
[2025-07-18 11:51] LABS: Hematocrit 27.1 % (37.0-47.0); Hemoglobin 8.9 g/dl (12.0-16.0); Imm Gran Abs Auto 0.02 X10*3/uL (0.00-0.03); Imm Gran Pct Auto 0.3 % (0.0-0.4); Lymphocytes Absolute Auto 1.1 X10*3/uL (1.2-4.9); Mean Corpuscular HGB Conc 32.8 g/dl (31.0-35.0); Mean Corpuscular Hemoglobin 28.7 pg (27.0-33.0); Mean Corpuscular Volume 87.4 fL (80.0-98.0); NRBC Abs Auto 0.000 X10*3/uL (0.0-0.012); NRBC Pct Auto 0.0 /100WBC (0.0-0.2); Platelet Count 208 X10*3/uL (160-400); Red Blood Count 3.10 X10*6/uL (4.20-5.50); White Blood Count 6.8 X10*3/uL (4.8-10.8)
--- OUTSIDE RECORDS SUMMARY | 2025-07-18 14:29 | XMS_ITS | Clinical Summary ---
Author Organization [facility] Address [address] [place] [address] Phone Care Team Providers Care Cable Systems Installer Name Role Phone Christopher Zamudio MD Primary Care Provider [phone] Surgical History Surgery Date Site/Laterality Comments CHOLECYSTECTOMY PROCEDURE: HISTORICAL CHOLECYSTECTOMY; COMMENT: 1981 LEG SURGERY 1985 PROCEDURE: HISTORICAL LEG SURGERY; COMMENT: Vein ablation APPENDECTOMY PROCEDURE: HISTORICAL APPENDECTOMY; COMMENT: 1981 OTHER SURGICAL HISTORY 08/18/2023 Right PROCEDURE: [place] INCISION BONE CORTEX FOOT; COMMENT: right, 5th metatarsal OTHER SURGICAL HISTORY 08/18/2023 Right PROCEDURE: SC BIOPSY BONE OPEN SUPERFICIAL; COMMENT: right, 5th proximal phalanx OTHER SURGICAL HISTORY 08/18/2023 Right PROCEDURE: [place] SECONDARY CLOSURE SURG WOUND/DEHSN XTNSV/COMP Medical History [...] (HCC); COMMENT: [facility]. History of cataract 10/17/2020 DX:History o f cataract Type 2 diabetes mellitus wit h cataract (CMS/HCC V24, CMS/HCC V28) 10/17/2020 DX:Type 2 diabetes mellitus with cataract ([facility]) Arrhythmia 10/17/2020 DX:Arrhythmia Family History Medical History [...] Info) Description 07/24/2025 10:00 AM EST Treatment [facility] Occupational Therapy [address] [place] [phone] Hannah Haas P, OTR/L Health Maintenance [...] Documents on File Type Date Recorded Patient Inventory Control Coordinator Expl anation Health Care Decision (hx) 08/20/2023 AD العراقي DIRECTIVE Health Care Decision (hx) 08/20/2023 AD العراقي DIRECTIVE Care Teams Cable Systems Installer Relationship Specialty Start Date End Date Christopher Zamudio MD [address] [place] [id number] PCP - General 09/10/16
--- OUTSIDE RECORDS SUMMARY | 2025-07-18 14:29 | XMS_ITS | Clinical Summary ---
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 History of malignant basal cell neoplasm of skin 01/27/2019 Overview (09/16/2022): lip Encounters Date Type Department Care Team Description 05/22/2025 Refill [facility] [address] [phone] Neo Rollins MD from Last [...] Office Visit [facility] [address] [address] Neo Rollins MD [address] [address] Health Maintenance Due Date Last [...] average glucose, using the formula of the [id number]-[id number] Average Glucose study (ADAG), Diabetes Care, Vol.31,#8, Mar. 2007 04/18/2019 10:3 4 AM EDT us Christopher Zamudio MD LAB BLOOD ORDERABLES Final Resu lt NIRALITONEY from Last 3 Months or Most Recently Relevant to Health [place] [id number] [facility] JACEY Medicare Medicaid [place] Medicare [facility] Medicaid [place] Care Teams Studio Producer Relationship Specialty Start Date End Date Christopher Zamudio MD [address] [place] [address] PCP - General 09/02/20
--- OUTSIDE RECORDS SUMMARY | 2025-07-18 14:29 | XMS_ITS | Clinical Summary ---
Author Organization [facility] Address [address] [place] [phone] Phone Care Team Providers Care Title I Coordinator Name Role Phone Unknown, Unknown Primary [...] MEDEX SUPPLEMENT MEDICARE PART A & B [facility] FULL MEDEX SUPPLEMENT MEDICARE PART A & B HEALTH SAFETY NET FULL MEDEX SUPPLEMENT MEDICARE PART A & B HEALTH SAFETY NET FULL [employer] MEDEX SUPPLEMENT MEDICARE PART A & B [facility] FULL [employer] MEDEX SUPPLEMENT MEDICARE PART A & B [facility] FULL MEDEX SUPPLEMENT MEDICARE PART A & B [employer] FULL MEDEX SUPPLEMENT MEDICARE PART A & B [employer] FULL [employer] MEDEX SUPPLEMENT MEDICARE PART A & B [facility] FULL [employer] [place] MEDEX SUPPLEMENT MEDICARE PART A & B [facility] FULL Care Teams Title I Coordinator Relationship Specialty Start Date End Date Unknown, Unknown, PCP - General 12/21/18 Additional Source Comments The information contained in this document represents components of the legal health record. It is not the complete legal health record.[facility]
--- OUTSIDE RECORDS SUMMARY | 2025-07-18 14:29 | XMS_ITS | Clinical Summary ---
Author Organization [employer] Address [address] [place] [address] [address] [place] [address] Care Team Providers Care Bank Clerk Name Role Phone Unavailable Primary Care Provider [...]
== END 2025-07-18 11:29 | disposition home or self-care (01) ==
LOC: HO.LAB 11:28
PROVIDERS: Visit Provider Internal Medicine Medical Oncology
DX: D64.9 Anemia, unspecified (principal)
CPT/HCPCS: 36415; 85025

== ENCOUNTER 2025-08-01 11:11 | Outpatient (REF) | payer MEDICARE, SELFPAY ==
[2025-08-01 11:30] LABS: MANUAL DIFF FLAG NO
[2025-08-01 11:35] LABS: Hematocrit 27.8 % (37.0-47.0); Hemoglobin 8.7 g/dl (12.0-16.0); Imm Gran Abs Auto 0.02 X10*3/uL (0.00-0.03); Imm Gran Pct Auto 0.3 % (0.0-0.4); Lymphocytes Absolute Auto 0.9 X10*3/uL (1.2-4.9); Mean Corpuscular HGB Conc 31.3 g/dl (31.0-35.0); Mean Corpuscular Hemoglobin 28.2 pg (27.0-33.0); Mean Corpuscular Volume 90.3 fL (80.0-98.0); NRBC Abs Auto 0.000 X10*3/uL (0.0-0.012); NRBC Pct Auto 0.0 /100WBC (0.0-0.2); Platelet Count 216 X10*3/uL (160-400); Red Blood Count 3.08 X10*6/uL (4.20-5.50); White Blood Count 6.3 X10*3/uL (4.8-10.8)
--- OUTSIDE RECORDS SUMMARY | 2025-08-01 18:01 | XMS_ITS | Clinical Summary ---
Author Organization [email or web address] Address [address] [place] [address] [address] [place] [address] Care Team Providers Care Fish Boning Machine Feeder Name Role Phone Unavailable Primary Care Provider [...]
--- OUTSIDE RECORDS SUMMARY | 2025-08-01 18:01 | XMS_ITS | Patient Health Record ---
Author Organization [facility] Address [address] [place] [address] Care Team Providers Care Hearing Aid Repairer Name Role Phone Price Wilber Aubrey [phone] Reason For Referral No Information Plan Of Treatment No Information
--- OUTSIDE RECORDS SUMMARY | 2025-08-01 18:02 | XMS_ITS | Clinical Summary ---
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 History of malignant basal cell neoplasm of skin 01/27/2019 Overview (09/16/2022): lip Encounters Date Type Department Care Team Description 05/22/2025 Refill [facility] [address] [phone] Neo Rollins MD from Last [...] Office Visit [facility] [address] [address] Neo Rollins MD [address] [address] Health Maintenance Due Date Last [...] average glucose, using the formula of the F1M-[id number] Average Glucose study (ADAG), Diabetes Care, Vol.31,#8, Mar. 2007 04/18/2019 10:3 4 AM EDT us Christopher Zamudio MD LAB BLOOD ORDERABLES Final Resu lt NIRALITONEY from Last 3 Months or Most Recently Relevant to Health [place] [id number] [facility] JACEY Medicare Medicaid [place] Medicare [facility] Medicaid [place] Care Teams Research Worker Kitchen Relationship Specialty Start Date End Date Christopher Zamudio MD [address] [place] [address] PCP - General 09/02/20
--- OUTSIDE RECORDS SUMMARY | 2025-08-01 18:02 | XMS_ITS | Data Portability ---
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 Name Role Phone TISHA MANZO Primary Care Provider [phone] YARA CISNEROS 2ND FLOOR OTHER [phone] Assessment Encounter Date Assessment Date Assessment LastModified [...] Address Organization Details Recorded Time Bacteremi a 9727094 Active 2022 MSSA foot infection Not Available [facility] 4 02:47:47 Type 2 diabetes mellitus 71605169 Active 2022 Not Available [facility] 4 02:47:47 Hypothyro idism 93956961 Active 2022 Not Available [facility] 4 02:47:47 Chronic kidney disease 831099753 Active 2022 Not Available [facility] 4 02:47:47 Gout 73908043 Active 2022 Not Available [facility] 4 02:47:47 Gastroeso phageal reflux disease without esophagit is 554815816 Active 2022 Not Available [facility] 4 02:47:47 Hyperlipi demia 07612916 Active 2022 Not Available [facility] 4 02:47:47 Essential hypertens ion 06103890 Active 2022 Not Available [facility] 4 02:47:47 Hypomagne semia 521381751 Active 2023 Not Available [facility] 4 02:47:47 Vitamin D deficienc y 28973571 Active 2023 Not Available [facility] 4 02:47:47 Chronic diastolic heart failure 758719634 Active 2023 Janee Davis MD [address] [facility], [facility] [address], [place], [address] , [employer] 4 10:48:17 Anemia 015128332 Active 2023 Janee Davis MD [address] [facility], [address], [place], [address] , [facility] 4 11:10:38 Bimalleol ar fracture of ankle 503845821 Active 2023 TATI CURRIE [address] [facility], [facility] [address], [place], [address] , [facility] [employer] 4 14:06:55 Stasis dermatiti s and 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 Please review this document and add these problems to the patient's chart manually as needed. Problem Notes None recorded. Medical Equipment None Reported. Allergies Allergen ID Allergen Name Allergen Category Reaction Reaction Severity Criticality Documentation Date Start Date Code Code System Note Provider Name and Address Organization Details Recorded Time 66116 codeine medicatio n Not available Not available Not available 08/20/2023 2670 RxNorm ALVARADO DEL CID NP [address] [facility], [address], [place], [address], [facility] 3 10:53:18 Vitals Date Recorded Body height Heart rate Respiratory rate Body temperature Systolic And Diastolic Provider Name and Address Organization Details Last Updated DateTime 4 170.18 cm 80 /min 16 /min 98 [degF] 129/78 mm[Hg] TATI CURRIE [address] [facility], [address], [place], [address], [facility] 4 10:52:49 Date Recorded Body height Body temperature Respiratory rate Heart rate Systolic And Diastolic Provider Name and Address Organization Details Last Updated DateTime 4 170.18 cm 97.3 [degF] 18 /min 68 /min 122/68 mm[Hg] TATI CURRIE [address] [facility], [address], [place], [address], [facility] 4 14:33:03 Date Recorded Body height Heart rate Respiratory rate Body temperature Systolic And Diastolic Provider Name and Address Organization Details Last Updated DateTime 4 170.18 cm 74 /min 18 /min 98 [degF] 132/74 mm[Hg] TATI CURRIE [address] [facility], [address], [place], [address], [facility] 4 12:19:44 Date Recorded Body height Body mass index (BMI) Body weight Heart rate Respiratory rate Body temperature Oxygen saturation Systolic And Diastolic Provider Name and Address Organization Details Last Updated DateTime 4 170.18 cm 31.6 kg/m2 99217.6 6 g 79 /min 18 /min 97.4 [degF] 100 % 141/75 mm[Hg] Janee Davis MD [address] [facility], [address], [place], [address], [facility] 4 21:07:19 Date Recorded Body height Heart rate Respiratory rate Body temperature Oxygen saturation Systolic And Diastolic Provider Name and Address Organization Details Last Updated DateTime 4 170.18 cm 79 /min 18 /min 98 [degF] 100 % 141/75 mm[Hg] TATI CURRIE [address] [facility], [address], [place], [address], [facility] 4 14:26:02 Social History Question Answer Notes LastModified by [employer] Details LastModified Time Tobacco Smoking Status Never Smoker ALVARADO DEL CID NP [address] [facility], [address], [place], [address], [facility] 08/20/2023 11:16:58 Do You Have An Advance Directive? Yes Information not available 08/20/2023 What Is Your Code Status? Full Code Information not available 08/20/2023 Where Do You Live? SingleLevelHouse Lives With Son, 3-4 Steps To Enter Information not available 08/24/2023 Legal Guardian? No Informati on not available 08/24/2023 Do You Have A Medical Power Of Ophthalmic Technician Apprentice? Yes Information not available 08/24/2023 What Was [...] Functional Status Question Answer Note LastModified by [employer] Details LastModified Time Do you use any [...] adjuvanted, quadrivalent, PF 3 completed Not Available [facility] 09/30/2023 02:47:47 Td(adult) unspecified formulation 1 completed [facility] 12/28/2023 16:20:20 SARS-COV-2 (COVID-19) vaccine, UNSPECIFIED 1 completed [facility] 12/28/2023 16:20:43 SARS-COV-2 (COVID-19) vaccine, UNSPECIFIED 1 completed [facility] 12/28/2023 16:20:50 pneumococcal polysaccharide PPV23 1 completed [facility] 12/28/2023 16:21:57 SARS-COV-2 (COVID-19) vaccine, UNSPECIFIED 1 completed [facility] 12/28/2023 16:22:45 Past Encounters Encounter ID Performer Location Encounter Start Date Encounter Closed Date Diagnosis/Indication Diagnosis SNOMED-CT Code Diagnosis ICD10 Code Diagnosis IMO Codes Diagnosis Note [id number] SCOTT NOBLES AMELIA [address] [place] [address] [place] [address] 08/20/2023 09:52:59 08/31/2023 13:27:41 Bacteremia 4309485 R78.81 flush picc qshiftcefa zolin 1 gm bid to 2/2followu p with vascular as planned Type 2 tiara betes mellitus 51842340 E11.9 humulin/re g 70/30 50 units bidmonitor glucose Chronic ki dney disease 698097822 N18.9 monitor labsavoid nephrotoxi c meds Gastroesop hageal reflux disease without esophagitis 990163257 K21.9 mag ox 400 mg daily to 8omepraz ole 20 mg daily Gout 87910548 M10.9 allopurino l 100 mg dailyD3 1250 p39gwir Hyperlipidemia 30349336 E78.5 fenofibrat e 160 mg daily Hypothyroidism 26802890 E03.9 hx of Essential hypertension 31630014 I10 lasix 20 mg dailyhydra lazine 25 mg bidtoprol 25 mg dailymonit or bplisinopr il stopped in hospital [id number] ALVARADO DEL CID NP [facility] [address] [place] [address] [place] [address] 08/24/2023 13:44:02 08/25/2023 03:52:21 Type 2 diabetes mellitus 41794397 E11.9 humulin/re g 70/30 50 units bidmonitor glucose Bacteremia 9872672 R78.8 1 flush picc qshiftcefa zolin 1 gm bid to 2/2followu p with vascular as planned [id number] Janee Davis MD [address] [place] [address] 08/24/2023 15:18:19 08/31/2023 14:10:55 Type 2 diabetes mellitus 90258687 E11.9 With some hypoglycem ia.Humulin 70/30 was lowered from 50 units BID to 25U BID and SSI continued. Monitor fingerstic ks, will change from TID to qid, with low dose SS at hs.HgA1C was 6.7 inpt. Bacteremia 9685988 R78.8 1 As above Osteomyeli tis of right foot 3353600577 088225 M86.271 S/P I&D and debridemen t. Vasc. surgeon (Dr. Friedman) felt that all diseased bone was removed.Co ntinue cefazolin 1 gm IV BID until 09/24 to complete 6 wk course.Con tinue wound care as ordered.F/ U with Dr. Friedman as planned. Chronic ki dney disease 418048291 N18.32 Back to baseline.C ontinue to avoid nephrotoxi c meds as able.Monit or labs.Renal consult prn. Gastroesop hageal reflux disease without esophagitis 151552881 K21.9 No current sxs.Contin ue omeprazole 20 mg qdMonitor sxs. Gout 39222562 M10.09 No current sxs.Contin ue allopurino l 100 mg qdMonitor for flare. Hyperlipidemia 14128204 E78.49 Continue fenofibrat e 160 mg qdMonitor as outpt. Hypothyroidism 34293967 E03.8 In hx.TSH WNL in 11/2022Moni tor as outpt Essential hypertension 47818195 I10 BP borderline at times, but acceptable for age.BP goal for this elderly woman is permissive HTN, with SBP<150 and DBP<90Cont inue lasix 20 mg qd, hydralazin e 25 mg BID and metoprolol 25 mg qd.Monitor BP and labs.No need to restart lisinopril at this time Hypomagnesemia 537913873 E83.42 Continue Mg+ 400 mg qd until 08/30, then recheck level Vitamin D deficiency 347 86758 E55.9 Continue ergocalcif denisse 50,000 IU every 14 days.Monit or levels [id number] TATI CURRIE [address] [address] 08/31/2023 11:38:57 09/08/2023 12:37:11 Bacteremia 8928389 R78.81 continuece fazolin 1 gm bid to 2ollow up with vascular Type 2 tiara betes mellitus 27817125 E11.9 200-280's mainlyhumu mahesh/reg 70/30 50 units bidmonitor glucose Chronic ki dney disease 019949762 N18.9 monitor labsavoid nephrotoxi c meds Gastroesop hageal reflux disease without esophagitis 479596850 K21.9 mag ox 400 mg daily to 08/30omepraz ole 20 mg daily Gout 20028939 M10.9 allopurino l 100 mg dailyD3 1250 v40muol Hyperlipidemia 02502930 E78.5 fenofibrat e 160 mg daily Hypothyroidism 63607720 E03.9 hx of Essential hypertension 63246443 I10 lasix 20 mg dailyhydra lazine 25 mg bidtoprol 25 mg dailymonit or bplisinopr il stopped in hospital [id number] TATI CURRIE [address] [address] 09/02/2023 09:40:27 09/08/2023 13:38:51 Bacteremia 5689130 R78.81 continueMS SA right footcefazo mahesh 1 gm bid to 22follow up with vascular Type 2 tiara betes mellitus 47320725 E11.9 200-280's mainlychan ged back to humulin/re g 70/30 50 units bidmonitor glucose Osteomyeli tis of right foot 1170703946 211529 M86.271 S/P I&D and debridemen t. Vasc. surgeon (Dr. Friedman) felt that all diseased bone was removed.Co ntinue cefazolin 1 gm IV BID until 2/ to complete 6 wk course.Con tinue wound care as ordered.F/ U with Dr. Friedman as planned. Edema of l ower extremity 878172417 R60.0 chronic BLEright greater than left [id number] TATI CURRIE [address] [address] 09/07/2023 13:02:41 09/13/2023 15:17:43 Bacteremia 8845177 R78.81 continueMS SA right footcefazo mahesh 1 gm bid to 2ollow up with vascular Type 2 tiara betes mellitus 86943134 E11.9 lispro SSChumulin /reg 70/30 50 units bidmonitor glucose Osteomyeli tis of right foot 5254167429 689878 M86.271 S/P I&D and debridemen t. Vasc. surgeon (Dr. Friedman) felt that all diseased bone was removed.Co ntinue cefazolin 1 gm IV BID until 2 to complete 6 wk course.Con tinue wound care as ordered.F/ U with Dr. Friedman as planned. Edema of l ower extremity 590897032 R60.0 chronic BLEright greater than left [id number] TATI CURRIE [address] [address] 09/10/2023 06:52:27 09/15/2023 13:31:46 Bacteremia 4798694 R78.81 continueMS SA right footcefazo mahesh 1 gm bid to 2ollow up with vascular Type 2 tiara betes mellitus 81311861 E11.9 I spoke with patient today. previously [...] bidmonitor glucose Osteomyeli tis of right foot 4526521191 645841 M86.271 S/P I&D and debridemen t. Vasc. surgeon (Dr. Friedman) felt that all diseased bone was removed.Co ntinue cefazolin 1 gm IV BID until 2/2 to complete 6 wk course.Con tinue wound care as ordered.F/ U with Dr. Friedman as planned. Edema of l ower extremity 088139477 R60.0 chronic BLEright greater than left [id number] TATI CURRIE [address] [address] 09/14/2023 07:53:08 09/17/2023 08:57:48 Bacteremia 4892889 R78.81 continueMS SA right footcefazo mahesh 1 gm bid to 2/2follow up with vascular Type 2 tiara betes mellitus 19159930 E11.9 I spoke with patient today. previously [...] bidmonitor glucose Osteomyeli tis of right foot 8395856788 529873 M86.271 S/P I&D and debridemen t. Vasc. surgeon (Dr. Friedman) felt that all diseased bone was removed.Co ntinue cefazolin 1 gm IV BID until 2/2 to complete 6 wk course.Con tinue wound care as ordered.F/ U with Dr. Friedman as planned. Edema of l ower extremity 969634255 R60.0 chronic BLEright greater than left [id number] TATI CURRIE [address] [address] 09/17/2023 08:23:28 09/22/2023 11:50:26 Bacteremia 8280912 R78.81 continueMS SA right footcefazo mahesh 1 gm bid to 2/2follow up with vascular Type 2 tiara betes mellitus 21988545 E11.9 lispro SSChumulin /reg 70/30 30 units bidmonitor glucose Osteomyeli tis of right foot 1846314760 165136 M86.271 S/P I&D and debridemen t. Vasc. surgeon (Dr. Friedman) felt that all diseased bone was removed.Co ntinue cefazolin 1 gm IV BID until 09/24 to complete 6 wk course.Con tinue wound care as ordered.F/ U with Dr. Friedman as planned. Edema of l ower extremity 661156637 R60.0 chronic BLEright greater than left [id number] TATI CURRIE [address] [place] [address] 09/21/2023 07:59:18 09/29/2023 08:59:51 Bacteremia 0429201 R78.81 continueMA SA right footcefazo mahesh 1 gm bid to 2/ollow up with vascular Type 2 tiara betes mellitus 33998766 E11.9 lispro SSChumulin /reg 70/30 30 units bidmonitor glucose Osteomyeli tis of right foot 1908555584 540991 M86.271 S/P I&D and debridemen t. Vasc. surgeon (Dr. Friedman) felt that all diseased bone was removed.Co ntinue cefazolin 1 gm IV BID until 09/24 to complete 6 wk course.Con tinue wound care as ordered.F/ U with Dr. Friedman as planned. Edema of l ower extremity 931434534 R60.0 chronic BLEright greater than left [id number] TATI CURRIE [address] [place] [address] 09/24/2023 12:21:41 09/29/2023 13:31:08 Bacteremia 8059153 R78.81 resolved Type 2 tiara betes mellitus 86188996 E11.9 humulin/re g 70/30 50 units bid Chronic ki dney disease 911625614 N18.9 monitor labsavoid nephrotoxi c meds Gastroesop hageal reflux disease without esophagitis 687713228 K21.9 mag ox 400 mg daily to 08/30omepraz ole 20 mg daily Gout 17598262 M10.9 allopurino l 100 mg dailyD3 1250 b19iiee Hyperlipidemia 22609956 E78.5 fenofibrat e 160 mg daily Hypothyroidism 85688210 E03.9 TSH WNL in 11/2022Moni tor as outptcurre ntly not on medication . Essential hypertension 95406174 I10 lasix 20 mg dailyhydra lazine 25 mg bidtoprol 25 mg daily Osteomyeli tis of right foot 4867888975 019893 M86.271 S/P I&D and debridemen t. Vasc. surgeon (Dr. Friedman) felt that all diseased bone was removed.co mpleted IV cefazolin 1 gm IV BID 09/24/23Cont inue wound care as ordered.F/ U with Dr. Friedman as planned. Hypomagnesemia 479121492 E83.42 monitor outpt labs Vitamin D deficiency 347 45322 E55.9 Continue ergocalcif denisse 50,000 IU every 14 days.Monit or levels [id number] Janee Davis MD [address] [address] 12/28/2023 15:33:48 01/13/2024 12:52:53 Chronic diastolic heart failure 426513307 I50.32 Appears euvolemic. Continue furosemide 40 mg qd and hydralazin e 25 mg BID.Monito r resp. status, fluid status, wts and labs. Paroxysmal atrial fibrillation 022637164 I48.0 Rate in good control on diltiazem 120 mg qd.Continu e eliquis 5 mg BID for AC.Monitor HR and bleeding risk. Type 2 tiara betes mellitus 49216603 E11.9 This AM FBS was 88. Last time she was here fastings tended to be ok, but with high sugars later in the day.HgA1C was 7.1 this AMContinue Humulin 70/30 20U BID and SSI.Monito r fingerstic ks TID Chronic ki dney disease 187394412 N18.32 Back to baseline.C ontinue to avoid nephrotoxi c meds as able.Monit or labs.Renal consult prn. Essential hypertension 91524179 I10 BP borderline at times, but acceptable for age.BP goal for this elderly woman is permissive HTN, with SBP<150 and DBP<90Cont inue meds as above.Rebeca tor BP and labs. Gastroesop hageal reflux disease without esophagitis 133161716 K21.9 No current sxs.Contin ue omeprazole 20 mg qdMonitor sxs. Gout 50270032 M10.09 No current sxs.Contin ue allopurino l 100 mg qdMonitor for flare. Hyperlipidemia 22497375 E78.49 Continue fenofibrat e 160 mg qdMonitor as outpt. Hypothyroidism 21943647 E03.8 In hx.TSH WNL inpt.Monit or as outpt Hypomagnesemia 465385263 E83.42 Continue Mg+ 400 mg BID.Monito r levels Vitamin D deficiency 347 56267 E56.8 Vit D supplement is ordered as cholecalci ferol 5000 IU every 14 days.Is supposed to be ergocalcif denisse 50,000 IU qd, will change.Mon itor levels Anemia 222698981 D64.89 Multifacto rial.Follo ws with Dr. White and gets procrit every few wks (has been irregular due to hospitaliz ations).Mo nitor labs Closed bim alleolar fracture of right ankle 1535449977 8005590 S82.841D Four wks from original injury.Con tinue PT/OT for strengthen ing, balance, gait training, safety and function.C ontinue APAP 1000 mg q 4 hrs prn, NTE 3000 mg/dContin ue fall precaution s.Monitor for safety.F/U with ortho as planned. [id number] TATI CURRIE [address] [place] [address] rd [place] [address] 01/03/2024 13:24:31 01/05/2024 10:19:57 Chronic diastolic heart failure 426136051 I50.32 continue lasix 40 mg dailyconti nue potassium 20 meq daily Paroxysmal atrial fibrillation 189462325 I48.0 Cardizem 120 mg dailyconti nue eliquis 2.5 mg BID Type 2 tiara betes mellitus 41614381 E11.9 With some hypoglycem ia.continu e Humulin 70/30 20 units BID and SSI continued. continue fingerstic ks QID Essential hypertension 51514058 I10 BP goal for this elderly woman is permissive HTN, with SBP<150 and DBP<90Cont inue lasix 40 mg qd, hydralazin e 25 mg BID lasix 40 mg dailyMonit or BP and labs. Open wound of left lower leg 3524676387 7081390 S81.802A patient son reports that she gets wound care at [facility] and she suppose to have calcium alginate and zinc applied to and around left lower extremity wound. He wants this to continue until wound MD can eval.wound MD alarcon and treatwill ordered to cleanse wound with NS apply calcium alginate and zinc ben wound. [id number] TATI CURRIE [address] [address] 01/07/2024 14:10:11 01/10/2024 13:39:22 Open wound of left lower leg 1927745949 0832368 S81.802A patient son reports that she gets wound care at [facility] and she suppose to have calcium alginate and zinc applied to and around left lower extremity wound. He wants this to continue until wound MD can eval.wound MD alarcon and treatwill ordered to cleanse wound with NS apply calcium alginate and zinc ben wound. Chronic di astolic heart failure 299332338 I50.32 continue lasix 40 mg dailyconti nue potassium 20 meq daily Paroxysmal atrial fibrillation 070722555 I48.0 Cardizem 120 mg dailyconti nue eliquis 2.5 mg BID Type 2 tiara betes mellitus 72371069 E11.9 With some hypoglycem ia.continu e Humulin 70/30 20 units BID and SSI continued. continue fingerstic ks QID Essential hypertension 35523576 I10 BP goal for this elderly woman is permissive HTN, with SBP<150 and DBP<90Cont inue lasix 40 mg qd, hydralazin e 25 mg BID lasix 40 mg dailyMonit or BP and labs. [id number] TATI CURRIE [address] [address] 01/11/2024 10:33:27 01/13/2024 16:16:44 Open wound of left lower leg 1733841710 1288858 S81.802A patient son reports that she gets wound care at [facility] and she suppose to have calcium alginate and zinc applied to and around left lower extremity wound. He wants this to continue until wound can dorian.wound MD alarcon and quinton ordered to cleanse wound with NS apply calcium alginate and zinc ben wound. Chronic di astolic heart failure 466711520 I50.32 continue lasix 40 mg dailyconti nue potassium 20 meq daily Paroxysmal atrial fibrillation 800344250 I48.0 Cardizem 120 mg dailyconti nue eliquis 2.5 mg BID Type 2 tiara betes mellitus 81270059 E11.9 With some hypoglycem ia.continu e Humulin 70/30 20 units BID and SSI continued. continue fingerstic ks QID Essential hypertension 23623360 I10 BP goal for this elderly woman is permissive HTN, with SBP<150 and DBP<90Cont inue lasix 40 mg qd, hydralazin e 25 mg BID lasix 40 mg dailyMonit or BP and labs. Anemia 272185628 D64.89 H/H trending down this weekstarte d procrit 10/16 and scheduled for bi weeklyunsu re when she last receivedwi ll follow up with patient son. [id number] TATI CURRIE [address] [place] [address] 01/13/2024 10:07:39 01/25/2024 10:52:36 Open wound of left lower leg 9285670622 7287863 S81.802A patient son reports that she gets wound care at [facility] and she suppose to have calcium alginate and zinc applied to and around left lower extremity wound. He wants this to continue until wound can eval.wound MD alarcon and quinton ordered to cleanse wound with NS apply calcium alginate and zinc ben wound. Chronic di astolic heart failure 095898812 I50.32 continue lasix 40 mg dailyconti nue potassium 20 meq daily Paroxysmal atrial fibrillation 601422973 I48.0 Cardizem 120 mg dailyconti nue eliquis 2.5 mg BID Type 2 tiara betes mellitus 54081576 E11.9 With some hypoglycem ia.continu e Humulin 70/30 20 units BID and SSI continued. continue fingerstic ks QID Essential hypertension 33173630 I10 BP goal for this elderly woman is permissive HTN, with SBP<150 and DBP<90Cont inue lasix 40 mg qd, hydralazin e 25 mg BID lasix 40 mg dailyMonit or BP and labs. Anemia 641574636 D64.89 HX of normochrom ic normocytic anemiaH/H trending down this week - tends to fluctuates tarted procrit 76838 10/16 and scheduled for bi weeklyRece ived doses on 10/27, 11/10, 11/24, 12/19 and 01/11/24 Bimalleola r fracture of ankle 021490385 S82.841A chronic with [facility] arthropath y with deformity ankle and midfoothx of infection with osteomyeli tis August 2023follow ed by [facility]- last seen on 01/07/24- recommend 2 tx option 1.conserva tive treatment wit off loading as much as possible, wear heel protector boot.2. Surgical reconstruc tion [id number] SHAE MOSELEY, ANIMAL RESCUER [facility] [address] [place] [address] 01/20/2024 09:44:29 01/25/2024 11:59:00 Open wound of left lower leg 5913901001 0896408 S81.802A continue calcium alginate and zinc left lower extremity woundwound MD alarcon and quinton ordered to cleanse wound with NS apply calcium alginate and zinc ben wound. Chronic di astolic heart failure 068693017 I50.32 stablecont inue lasix 40 mg dailyconti nue potassium 20 meq daily Paroxysmal atrial fibrillation 498783659 I48.0 HR 69Cardizem 120 mg dailyconti nue eliquis 2.5 mg BID Type 2 tiara betes mellitus 18615690 E11.9 With some hypoglycem ia.continu e Humulin 70/30 20 units BID and SSI continued. continue fingerstic ks QID Anemia 614400507 D64.89 HX of normochrom ic normocytic anemiaH/H trending down this week - tends to fluctuates tarted procrit 03359 10/16 and scheduled for bi weeklyRece ived doses on 10/27, 11/10, 11/24, 12/19 and 01/11/24 Bimalleola r fracture of ankle 612460734 S82.841A chronic with [facility] arthropath y with deformity ankle and midfoothx of infection with osteomyeli tis August 2023follow ed by [facility]- last seen on 01/07/24- recommend 2 tx option 1.conserva tive treatment wit off loading as much as possible, wear heel protector boot.2. Surgical reconstruc tion [id number] TATI CURRIE [address] [address] 01/25/2024 10:02:09 01/31/2024 15:51:53 Open wound of left lower leg 9504037611 1600260 S81.802A continue calcium alginate and zinc left lower extremity woundwound MD alarcon and treatwill ordered to cleanse wound with NS apply calcium alginate and zinc ben wound. Chronic di astolic heart failure 995858362 I50.32 continue lasix 40 mg dailyconti nue potassium 20 meq daily Paroxysmal atrial fibrillation 426117094 I48.0 Cardizem 120 mg dailyconti nue eliquis 2.5 mg BID Type 2 tiara betes mellitus 72315428 E11.9 no recent hypoglycem ic events.con tinue Humulin 70/30 20 units BID and SSI continued. continue fingerstic ks QID Anemia 406507905 D64.89 recent labs stable,HX of normochrom ic normocytic anemiaH/H trending down this week - tends to fluctuates tarted procrit 49831 10/16 and scheduled for bi weeklyRece ived doses on 10/27, 11/10, 11/24, 12/19 and 01/11/24 Bimalleola r fracture of ankle [id number] S82.841A dressing intact, pain is controlled chronic with charcot arthropath y with deformity ankle and midfoothx of infection with osteomyeli tis August 2023follow ed by [facility]- last seen on 01/07/24- recommend 2 tx option 1.conserva tive treatment wit off loading as much as possible, wear heel protector boot.2. Surgical reconstruc tion [id number] TATI CURRIE [address] [address] 01/28/2024 15:29:14 02/01/2024 08:26:24 Open wound of left lower leg [id number] S81.802A [facility] with NS apply calcium alginate and zinc ben wound.elev ate left foot/heel when sitting to keep DTI well perfused Chronic di astolic heart failure 832553549 I50.32 continue lasix 40 mg dailyconti nue potassium 20 meq daily Paroxysmal atrial fibrillation 098194136 I48.0 Cardizem 120 mg dailyconti nue eliquis 2.5 mg BID Type 2 tiara betes mellitus 36124064 E11.9 no recent hypoglycem ic events.con tinue Humulin 70/30 20 units BID and SSI continued. continue fingerstic ks QID Anemia 365276586 D64.89 recent labs stable,HX of normochrom ic normocytic anemiacont inue procrit 90361 10/16 and scheduled for bi weekly Bimalleola r fracture of ankle [id number] S82.841A she [facility] was seen on 01/23 and will f/u in 2 weeksconti nue with current dressing change. 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 Surgical reconstruc tion [id number] TATI CURRIE [address] [facility] [place] [address] 02/01/2024 10:24:39 02/04/2024 08:49:56 Open wound of left lower leg [id number] 6032616 S81.802A continue to cleanse wound with NS apply calcium alginate and zinc ben wound.elev ate left foot/heel when sitting to keep DTI well perfused Chronic di astolic heart failure 359238399 I50.32 continue lasix 40 mg dailyconti nue potassium 20 meq daily Paroxysmal atrial fibrillation 490931470 I48.0 Cardizem 120 mg dailyconti nue eliquis 2.5 mg BID Type 2 tiara betes mellitus 71926077 E11.9 no recent hypoglycem ic events.con tinue Humulin 70/30 20 units BID and SSI continued. continue fingerstic ks QID Anemia 626845455 D64.89 recent labs stable,HX of normochrom ic normocytic anemiacont inue procrit 98565 10/16 and scheduled for bi weekly Bimalleola r fracture of ankle 614681050 S82.841A [facility] was seen on 01/23 and will f/u in 2 weeksconti nue with current dressing change. 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 Surgical reconstruc tion Chronic ki dney disease 300615993 N18.32 monitor labsavoid nephrotoxi c meds Essential hypertension 90442683 I10 blood pressure has been stable 120-130sBP goal for this elderly woman is permissive HTN, with SBP<150 and DBP<90Cont inue lasix 40 mg qd, hydralazin e 25 mg BID lasix 40 mg dailyMonit or BP and labs. Gout 05434489 M10.09 allopurino l 100 mg dailynot reported recent flare up. [id number] TATI CURRIE [address] [place] [address] 02/04/2024 09:44:41 02/07/2024 14:37:26 Open wound of left lower leg [id number] 2371891 S81.802A continue to cleanse wound with NS apply calcium alginate and zinc ben wound.elev ate left foot/heel when sitting to keep DTI well perfused Chronic di astolic heart failure 855751825 I50.32 euvolemicc ontinue lasix 40 mg dailyconti nue potassium 20 meq daily Paroxysmal atrial fibrillation 923996626 I48.0 Cardizem 120 mg dailyconti nue eliquis 2.5 mg BID Type 2 tiara betes mellitus 27136212 E11.9 BGLs mainly under 200's, a few noted in the 400s. patient and son are very particular about insulin dosing, so will not adjust.con tinue Humulin 70/30 20 units BID and SSI continued. continue fingerstic ks QID Anemia 095837196 D64.89 continue procrit 25106 224 and scheduled for bi weekly Bimalleola r fracture of ankle 758257081 S82.841A [facility] on 01/23 and [...] protector boot.2. Surgical reconstruc tion Essential hypertension 76725634 I10 BP goal for this elderly woman is permissive HTN, with SBP<150 and DBP<90Cont inue lasix 40 mg qd, hydralazin e 25 mg BID lasix 40 mg dailyMonit or BP and labs. [id number] TATI CURRIE [address] [place] [address] 02/07/2024 11:53:48 02/09/2024 16:49:24 Open wound of left lower leg [id number] 7663643 S81.802A continue to cleanse wound with NS apply calcium alginate and zinc ben wound.elev ate left foot/heel when sitting to keep DTI well perfused Chronic di astolic heart failure 634745701 I50.32 continue lasix 40 mg dailyconti nue potassium 20 meq daily Paroxysmal atrial fibrillation 731675536 I48.0 Cardizem 120 mg dailyconti nue eliquis 2.5 mg BID Type 2 tiara betes mellitus 41677339 E11.9 continue Humulin 70/30 20 units BID and SSI continued. continue fingerstic ks QID Anemia 771141843 D64.89 continue procrit 39069 2 and scheduled for bi weekly Essential hypertension 62712968 I10 Continue lasix 40 mg qd, hydralazin e 25 mg BID lasix 40 mg dailyMonit or BP and labs. [id number] TATI CURRIE [address] [address] 02/10/2024 09:22:17 02/16/2024 10:42:27 Open wound of left lower leg [id number] 8031049 S81.802A continue to cleanse wound with NS apply calcium alginate and zinc ben wound. PCC updatedele vate left foot/heel when sitting to keep DTI well perfused Chronic di astolic heart failure 293825732 I50.32 continue lasix 40 mg dailyconti nue potassium 20 meq daily Paroxysmal atrial fibrillation 230579015 I48.0 Cardizem 120 mg dailyconti nue eliquis 2.5 mg BID Type 2 tiara betes mellitus 88016909 E11.9 continue Humulin 70/30 20 units BID and SSI continued. continue fingerstic ks QIDno reported hypo/hyper glycemic events. Essential hypertension 54590413 I10 Continue lasix 40 mg qd, hydralazin e 25 mg BID lasix 40 mg dailyMonit or BP and labs. [id number] Janee Davis MD [address] [address] 02/14/2024 21:04:27 03/14/2024 07:28:32 Chronic diastolic heart failure 192766396 I50.32 Appears euvolemic. Continue lasix 40 mg qd and KCl 20 meq qd to prevent hypokalemi a.Monitor resp. status, fluid status, wts and labs. Paroxysmal atrial fibrillation 616826759 I48.0 Rate in good control on meds as above.Cont inue eliquis 2.5 mg BID for AC.Monitor HR and bleeding risk. Type 2 tiara betes mellitus 24513458 E11.9 In adequate control.Co ntinue Humulin 70/30 20U BID and SSIContinu e fingerstic ks QID Essential hypertension 83662236 I10 In good control.Co ntinue lasix 40 mg qd, hydralazin e 25 mg BID, diltiazem 120 mg qd, and lasix 40 mg qdMonitor BP and labs. 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 Essential hypertension 90780885 I10 Continue lasix 40 mg qd, hydralazin e 25 mg BID lasix 40 mg dailyMonit or BP and labs. Chronic di astolic heart failure 123643853 I50.32 continue lasix 40 mg dailyconti nue potassium 20 meq daily Paroxysmal atrial fibrillation 234556625 I48.0 Cardizem 120 mg dailyconti nue eliquis 2.5 mg BID Type 2 tiara betes mellitus 49883584 E11.9 continue Humulin 70/30 20 units BID and SSI continued. continue fingerstic ks QIDno reported hypo/hyper glycemic events. Chronic ki dney disease 291617356 N18.32 Back to baseline.C ontinue to avoid nephrotoxi c meds as able.Monit or labs.Renal consult prn. Closed bim alleolar fracture of right ankle 4406103250 6880023 S82.841D Continue APAP 1000 mg q 4 hrs prn, NTE 3000 mg/dContin ue fall precaution s.Monitor for safety.F/U with ortho Gastroesop hageal reflux disease without esophagitis 331174257 K21.9 Continue omeprazole 20 mg qd Gout 54795992 M10.09 Continue allopurino l 100 mg qdMonitor for flare. Hyperlipidemia 07844469 E78.49 Continue fenofibrat e 160 mg qdMonitor as outpt. Hypothyroidism 02456785 E03.8 not on medsTSH WNL inpt.Monit or as outpt Hypomagnesemia 332313965 E83.42 Continue Mg+ 400 mg BID.Monito r levels Vitamin D deficiency 347 33120 E56.8 ergocalcif denisse 50,000 IU qdMonitor levels Anemia 232434812 D64.89 Multifacto rial.justo nue procrit 65138 bi weekly Health Concerns Section Related Observation LastModified by Organization Detai ls LastModified Time None Recorded Concern Status LastModified by Organization Details LastModified Time None Recorded Advance Directives Directive Y: Payers Insurance Date Sequence Insurance Name Policy Number Policy Bravo Covered Member ID Bravo Member ID Guarantor Name 01/25/2024 1 [place] [employer] Susan Laurent [id number] Susan Laurent 03/14/2024 2 [place] [id number] Susan Laurent [id number] Susan Laurent Notes Date Note Type Note Provider Name [...] ankle, most recently at [facility] for a CHF exacerbation.She initially presented to the [facility] on 11/26 after an unknown injury. Found to have an Acute displaced bimalleolar fracture with ankle mortise disruption. Complicated by chronic pain from right foot Charcot arthropathy. She was splinted and instructed in strict NWB status and d/c to [facility]. Of note she had just been dxed with new onset Afib on 11/24 and started on diltiazem and apixaban.Returned to [facility] on 12/13, several days after d/c from [facility], because of difficulty ambulating at home and unable to help her due to his own issues. D/C on 12/15 to [facility].Was sent to the [facility] ED on 12/17 because of SOB and [...] no acute nursing concerns. TATI CURRIE [address] [facility], [address], [place], [address], [facility] [employer] 02/04/2024 11:01:05 02/07/2024 text/html ROS as noted [...] ankle, most recently at [facility] for a CHF exacerbation.She initially presented to the [facility] on 11/26 after an unknown injury. Found to have an Acute displaced bimalleolar fracture with ankle mortise disruption. Complicated by chronic pain from right foot Charcot arthropathy. She was splinted and instructed in strict NWB status and d/c to [facility]. Of note she had just been dxed with new onset Afib on 11/24 and started on diltiazem and apixaban.Returned to [facility] on 12/13, several days after d/c from [facility], because of difficulty ambulating at home and unable to help her due to his own issues. D/C on 12/15 to [facility].Was sent to the [facility] ED on 12/17 because of SOB and AMS.Labs and vitals were WNL (except Na+147 and BNP 222) CXR showed pulmonary edema with small pleural effusions. Neg for RSV/influenza and covid.EKG showed NSR and she was continued on diltiazem and apixaban.She was txed with IV lasix and K+A left dhillon wound was followed by wound care. TATI CURRIE [address] [facility], [address], [place], [address], [facility] [employer] 02/07/2024 14:37:38 02/10/2024 text/html ROS as noted [...] and s/p MSSA sepsis. TATI CURRIE [address] [facility], [address], [place], [address], [place] 02/10/2024 12:44:47 02/14/2024 text/html I am seeing this 88 yo woman for an acute visit today to f/u on RLE fx, ulcers and NWB status.Son has had concerns about mother refusing wound care and this is being addressed by nursing staff.She was seen at the [facility] wound clinic on 02/06 and it was [...] s/p MSSA sepsis. Janee Davis MD [address] [facility], [address], [place], [address], [place] 03/11/2024 19:10:29 02/18/2024 text/html This is an 88 yo woman due for discharge today. Patient has been in and out of rehabs and hosp since 11/26 when she broke her right ankle, most recently at [facility] for a CHF exacerbation.She initially presented to the [facility] on 11/26 after an unknown injury. [...] and started on diltiazem and apixaban.Returned to [facility] on 12/13, several days after d/c from [facility], because of difficulty ambulating at home and unable to help her due to his own issues. D/C on 12/15 to [facility].Was sent to the [facility] ED on 12/17 because of SOB and AMS.Labs and vitals were WNL (except Na+147 and BNP 222) CXR showed pulmonary edema with small pleural effusions. Neg for RSV/influenza and covid.EKG showed NSR and she was continued on diltiazem and apixaban.She was txed with IV lasix and K+A left dhillon wound was followed by wound care.She was transferred to [facility] on [facility] was done on 12/23 [...] and s/p MSSA sepsis. TATI CURRIE [address] [facility], [address], [place], [address], [facility] [employer] 02/18/2024 14:26:35 OBGyn Episode No OBEpisode recorded.
--- OUTSIDE RECORDS SUMMARY | 2025-08-01 18:02 | XMS_ITS | Clinical Summary ---
Author Organization Formerly [facility] Address [address] [place] [address] Phone Care Team Providers Care Registered Phlebotomist Part Time Name Role Phone Unknown, Unknown Primary Care [...] MEDICARE PART A & B [facility] FULL MEDEX SUPPLEMENT MEDICARE PART A & B [employer] NET FULL MEDEX SUPPLEMENT MEDICARE PART A & B HEALTH SAF[employer] NET FULL [employer] MEDEX SUPPLEMENT MEDICARE PART A & B [facility] FULL [employer] MEDEX SUPPLEMENT [employer] Address: [address] [place] [address] MEDICARE PART A & B [facility] FULL MEDEX SUPPLEMENT [employer] Address: [address] [place] [address] MEDICARE PART A & B [employer] NET FULL MEDEX SUPPLEMENT MEDICARE PART A & B [employer] NET FULL [employer] MEDEX SUPPLEMENT MEDICARE PART A & B [facility] FULL [employer] MEDEX SUPPLEMENT MEDICARE PART A & B [facility] FULL Care Teams Registered Phlebotomist Part Time Relationship Specialty Start Date End Date Unknown, Unknown, PCP - General 12/21/18 Additional Source Comments The information contained in this document represents components of the legal health record. It is not the complete legal health record.Formerly [facility]
--- OUTSIDE RECORDS SUMMARY | 2025-08-01 18:03 | XMS_ITS | Clinical Summary ---
Author Organization [facility] Address [address] [place] [address] Phone Care Team Providers Care Artificial Flowers Supervisor Name Role Phone Christopher Zamudio MD Primary Care Provider [phone] Surgical History Surgery Date Site/Laterality Comments CHOLECYSTECTOMY PROCEDURE: HISTORICAL CHOLECYSTECTOMY; COMMENT: 1981 LEG SURGERY 1985 PROCEDURE: HISTORICAL LEG SURGERY; COMMENT: Vein ablation APPENDECTOMY PROCEDURE: HISTORICAL APPENDECTOMY; COMMENT: 1981 OTHER SURGICAL HISTORY 08/18/2023 Right PROCEDURE: [place] INCISION BONE CORTEX FOOT; COMMENT: right, 5th metatarsal OTHER SURGICAL HISTORY 08/18/2023 Right PROCEDURE: [place] BIOPSY BONE OPEN SUPERFICIAL; COMMENT: right, 5th proximal phalanx OTHER SURGICAL HISTORY 08/18/2023 Right PROCEDURE: [place] SECONDARY CLOSURE SURG WOUND/DEHSN XTNSV/COMP Medical History [...] (HCC); COMMENT: [facility]. History of cataract 10/17/2020 DX:History o f cataract Type 2 diabetes mellitus wit h cataract (CMS/HCC V24, CMS/HCC V28) 10/17/2020 DX:Type 2 diabetes mellitus with cataract ([facility]) Arrhythmia 10/17/2020 DX:Arrhythmia Family History Medical History [...] Orientation Straight 05/07/2025 9: 43 AM EDT Last Filed Vital Signs Vital Sign Reading [...] Care Team (Late st Contact Info) Description 10/10/2025 10:00 AM EST Evaluation [facility] Occupational Therapy [address] [place] [id number] Hannah Haas, OTR/L Health Maintenance Due Date Last Done [...] 08/07/2022 Depression Screening 08/23/2024 COVID-19 Vaccine (3 2024-2 6 season) 2025 10/22/2020, 09/23/2020 Influenza [...] Documents on File Type Date Recorded 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
== END 2025-08-01 11:12 | disposition home or self-care (01) ==
LOC: HO.LAB 11:11
PROVIDERS: Visit Provider Internal Medicine Medical Oncology
DX: D64.9 Anemia, unspecified (principal)
CPT/HCPCS: 36415; 85025

== ENCOUNTER 2025-08-11 15:05 | Emergency (ER) | payer MEDICARE, SELFPAY ==
[2025-08-11 15:15] VITALS: BP 171/53; BP 180/100; PULSE 70; PULSE 78; RESP 16; TEMP 36.5; O2SAT 98; O2SAT 99; BMI 39.0
--- NOTE | 2025-08-11 15:36 | PC.NURSE ---
patient noted to be bleeding from spot on face, is currently on thinners. unable to get it to stop bleeding with direct pressure. surgicell applied by RETIREMENT ASSISTANT and pressure applied. bleeding has continued but slowed down. patient getting labs drawn at this time.
[2025-08-11 15:51] LABS: INTERNATIONAL NORM RATIO 1.3 (0.9-1.1); Prothrombin Time 16.3 SEC (11.2-13.5)
--- NOTE | 2025-08-11 15:56 | ED.SKABFB ---
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 The dermatology office told her to call if she began to bleed. She was not able to get a hold of the office last night, and therefore activated EMS. Last night they placed a Band-Aid and she has opted bleeding. Today, she would not stop bleeding after changing the Band-Aid. She has been taking her Eliquis as prescribed, and never stopped any dosing. No chest pain or pressure, shortness of breath, abdominal pain. No dizziness, lightheadedness. No fever, chills, recent illnesses. Related Data Home Medications ?Medication ?Instructions ?Recorded ?Confirmed acetaminophen 500 mg tablet 500 mg PO Q4H PRN Moderate Pain 12/19/23 08/09/25 (Scale Score 5-6) multivitamin 1 tab PO DAILY 02/18/25 08/09/25 lancets (Microlet Lancet) #100 ea 06/12/25 08/09/25 Previous Rx's ?Medication ?Instructions ?Recorded fenofibrate 160 mg tablet 160 mg PO DAILY #90 tabs 06/16/24 allopurinol 100 mg tablet 100 mg PO DAILY #90 tabs 07/03/24 apixaban 2.5 mg tablet (Eliquis) 2.5 mg PO BID #180 tabs 09/29/24 Acucheck glucose monitor #1 ea 04/09/25 Acucheck test strips #200 ea 04/10/25 blood sugar diagnostic (Accu-Chek #100 ea 04/19/25 Radha Plus test strips) blood-glucose meter #1 ea 04/19/25 omeprazole 20 mg capsule,delayed 20 mg PO DAILY@0630 #90 caps 06/05/25 release blood-glucose sensor (FreeStyle #2 ea 06/12/25 Jr 3 Sensor device) blood-glucose,terra cotta mold maker,cont #1 ea 06/12/25 (FreeStyle Jr 3 [place]) insulin glargine 100 unit/mL (3 20 unit (0.2 mL) subcut QAM #15 mL 06/12/25 mL) subcutaneous pen (Lantus Solostar U-100 Insulin) insulin lispro 100 unit/mL 8 unit (0.08 mL) subcut TID #15 mL 06/29/25 subcutaneous pen (Humalog KwikPen (U-100) Insulin) amlodipine 2.5 mg tablet 2.5 mg PO DAILY #30 tabs 07/09/25 carvedilol 6.25 mg tablet (Coreg) 6.25 mg PO BID #60 tabs 07/09/25 blood sugar diagnostic (FreeStyle #100 ea 07/10/25 Lite Strips) empagliflozin 25 mg tablet 25 mg PO DAILY #30 tabs 07/10/25 (Jardiance) Power wheelchair #1 ea 08/02/25 ergocalciferol (vitamin D2) 1,250 1,250 mcg PO Q14D #60 caps 08/03/25 mcg (50,000 unit) capsule hydralazine 100 mg tablet 100 mg PO BID 90 days #180 tabs 08/08/25 Allergies Allergy/AdvReac Type Severity Reaction Status Date / Time codeine (CODEINE) Allergy Intermediate BACK PAIN Verified 08/11/25 15:18 pollen extracts (POLLEN) Allergy Mild SINUS Verified 08/11/25 15:18 IRRITATION metoprolol AdvReac Intermediate Hallucinati Verified 08/11/25 15:18 ons Review of Systems Review of Systems: ROS is otherwise negative unless mentioned in HPI. [facility] Past Medical History Medical History Lymphedema Diabetes mellitus BARB (acute kidney injury) Diabetes mellitus with coincident hypertension Hyperlipidemia CKD (chronic kidney disease) stage 4, GFR 15-29 ml/min Atrial fibrillation Osteomyelitis Gout Anemia Hx of type A viral hepatitis Obesity Surgical History History of foot surgery History of surgical removal of skin lesion History of biopsy History of excision of lesion H/O varicose vein ligation History of cholecystectomy Family History Family History Father Gastric cancer Mother Acute CVA (cerebrovascular accident) Diabetes Brother Colon cancer Social History Social History Household Members: Family Household Members Other:: son,vivek Housing: House Do you presently have visiting nurse or other home services: No Alcohol intake: never Patient Tobacco Use Status: Never used Tobacco e-Cigarette/Vaping Use: Never Used Second Hand Smoke Exposure: No Advance Directives: Yes Advance Directives on File: Yes Advance Directives Date on File: 07/16/21 service: No Current occupational status: retired Cognitive needs: Yes (walker ) Hearing needs: No Vision needs: Yes Physical Exam Exam: Exam: Nursing notes and vital signs reviewed. Constitutional: Well-appearing, NAD. Alert. Oriented X3. Eyes: EOMI. ENT: Pharynx normal. Neck: Normal inspection. Neck supple. CVS: Normal heart rate and rhythm. Pulses normal. Respiratory: No respiratory distress. Skin: Skin warm and dry. Normal skin color. Small, circular skin lesion, actively bleeding, to the right cheek/jaw. Extremities: No lower extremity edema. Neuro: Oriented X 3. No motor deficit. Vital Signs: Vital Signs: Last Vital Signs Temp 97.7 F 08/11/25 15:15 Pulse 70 08/11/25 15:15 Resp 16 08/11/25 15:15 BP 171/53 H 08/11/25 15:15 Pulse Ox 99 08/11/25 15:15 O2 Del Method Room Air 08/11/25 15:15 BMI result Body Mass Index 39.0 Medical Decision Making Medical Decision Making MDM Narrative: Upon my initial assessment of this patient, she has a bleeding lesion to the right cheek/jaw area. It appears to be kind of sitting on her jaw line, as when she speaks it bleeds a bit more. She did not skip any doses of her Eliquis. Reports history of bleeding issues being on the Eliquis, but had this surgically removed in the dermatology office and has now had persistent bleeding. I applied direct pressure, she continued to bleed. Therefore, I then placed a surgi-gel dressing, with 2x2 gauze, and a large tegaderm. The bleeding has appeared to stop. I considered direct cauterization, versus silver nitrate swabs, however the patient appears to be pretty uncomfortable even with gentle pressure to the lesion. Will reassess, obtain CBC/coagulation. 4:53 PM-- the patient's dressing that I previously applied had become saturated, however bleeding has completely stopped now after surgi- gel application. I removed the top layers of the dressing, and reinforced it. The patient looks degenerative changes now clean, dry, intact, and there is no visual bleeding on the outside of the dressing. I discussed with her and her son extensively return precautions to the ED if the dressing becomes saturated through, or leak around the dressing. Pending CBC for discharge. 5:45 PM-- CBCs shows stable H&H. We will proceed with discharge plan. Patient, her son are agreeable to plan of care. Differential Diagnosis Differential Diagnoses: The differential diagnosis associated with the presentation includes DIC, bleeding lesion, cellulitis Admission/Observation Consideration of admission/observation: Escalation of care including admission/observation considered (Not indicated) Lab Data MDM Lab Attestation statement: I reviewed the patient's lab results. (Stable, reassuring) 08/11/25 17:19 Labs: Lab Results 08/11/25 08/11/25 Range/Units 15:40 17:19 WBC 5.8 (4.8-10.8) X10*3/uL RBC 3.14 L (4.20-5.50) X10*6/uL Hgb 8.8 L (12.0-16.0) g/dl Hct 27.9 L (37.0-47.0) % MCV 88.9 (80.0-98.0) fL MCH 28.0 (27.0-33.0) pg MCHC 31.5 (31.0-35.0) g/dl RDW 17.5 H (11.0-16.0) % Plt Count 233 (160-400) X10*3/uL MPV 12.0 (9.4-12.3) fL Immature Gran % (Auto) 0.3 (0.0-0.4) % Neut % (Auto) 75.0 H (45-73) % Lymph % (Auto) 14.5 L (20-40) % [place] % (Auto) 6.6 (2-11) % Eos % (Auto) 3.3 (0-4) % Baso % (Auto) 0.3 (0-2) % Lymph # (Auto) 0.8 L (1.2-4.9) X10*3/uL [place] # (Auto) 0.4 (0.1-1.2) X10*3/uL Eos # (Auto) 0.2 (0.0-0.4) X10*3/uL Baso # (Auto) 0.0 (0.0-0.2) X10*3/uL Abs Immat Gran (auto) 0.02 (0.00-0.03) X10*3/uL Absolute Neuts (auto) 4.4 (2.0-8.3) x10*3/uL Absolute Nucleated RBC 0.000 (0.0-0.012) X10*3/uL Nucleated RBC % (auto) 0.0 (0.0-0.2) /100WBC PT 16.3 H (11.2-13.5) SEC INR 1.3 H (0.9-1.1) Independent Historian Clinical information obtained from an independent historian. History obtained from or confirmed by: Other (Son) External Record Review External record reviewed: Office record, Outpatient record and Prior outpatient labs Chronic Conditions Patient?s care impacted by: Diabetes, Hypertension and Other (Anticoagulation use) Social Determinants Patient?s care significantly limited by Social Determinants of Health including: Problems related to primary support group Procedures Burn Care/Dressing Face/Neck: Debridement Necessary: No Type of Dressing: Non-Stick Neurovascular Functions Intact After Dressing Application: Yes Patient Tolerated Procedure: well Additional Comments: Surgicel applied to the wound site. Covered with 2x2 gauze. Large tegaderm applied to create pressure dressing. Bleeding now controlled. Discharge Plan Discharge Clinical Impression: Skin lesion of cheek Patient Disposition: Home, Self-Care Instructions: Skin Biopsy (DC) Additional Instructions: You were seen in the ER today for evaluation of a bleeding skin lesion. We were able to stop the bleeding by applying something called Surgicel. This helps clotting over wounds. Given your bleeding was post surgical from a skin biopsy, please keep this dressing on for the next 1-3 days. Please schedule an appointment early in the week with the gyroscopic instrument tester, to have the dressing removed and the site reassessed. We have applied a clean, dry wound dressing. If you bleed through the wound dressing, and the dressing is falling off of the skin, your to return to the ED for additional assessment. Your lab work today was reassuring. With any worsening complaints at any time, return back to the ED for additional assessment. Prescriptions: No Action fenofibrate 160 mg tablet 160 mg PO DAILY Qty: 90 8RF allopurinol 100 mg tablet 100 mg PO DAILY Qty: 90 7RF Eliquis 2.5 mg tablet 2.5 mg PO BID Qty: 180 2RF (DME) Acucheck glucose monitor See Rx Instructions .Route .MEDSUPPLY Qty: 1 0RF Rx Instructions: As directed Check blood sugar two times a day (DME) Acucheck test strips See Rx Instructions .Route .MEDSUPPLY Qty: 200 2RF Rx Instructions: As directed check blood sugar two times a day omeprazole 20 mg capsule,delayed release(DR/EC) 20 mg PO DAILY@0630 Qty: 90 3RF insulin lispro [Humalog KwikPen Insulin] 100 unit/mL insulin pen 8 unit subcut TID Qty: 15 3RF Rx Instructions: Use insulin 8 units TID (DME) Power wheelchair See Rx Instructions .Route .MEDSUPPLY Qty: 1 0RF Rx Instructions: As directed ergocalciferol (vitamin D2) 1,250 mcg (50,000 unit) capsule 1,250 mcg PO Q14D Qty: 60 4RF Rx Instructions: GIVEN EVERY OTHER WEDNESDAY hydralazine 100 mg tablet 100 mg PO BID 90 Days Qty: 180 3RF Rx Instructions: Note change to 100mg tablet acetaminophen 500 mg Tablet 500 mg PO Q4H PRN (Reason: Moderate Pain (Scale Score 5-6)) multivitamin Tablet 1 tab PO DAILY (DME) FreeStyle Lite Strips Strip See Rx Instructions .Route Qty: 100 3RF Rx Instructions: As directed to check BG 3-4 times per day Jardiance 25 mg tablet 25 mg PO DAILY Qty: 30 3RF carvedilol [Coreg] 6.25 mg tablet 6.25 mg PO BID Qty: 60 3RF Rx Instructions: must administer with a meal/food amlodipine 2.5 mg tablet 2.5 mg PO DAILY Qty: 30 4RF (DME) blood-glucose meter Misc See Rx Instructions .Route Qty: 1 0RF Rx Instructions: As directed Check blood sugar three times a day (DME) Accu-Chek Radha Plus test strp Strip See Rx Instructions .Route Qty: 100 3RF Rx Instructions: As directed Check blood sugar tid (DME) lancets [Microlet Lancet] Misc See Rx Instructions .ROUTE TID Qty: 100 Rx Instructions: As directed (DME) FreeStyle Jr 3 Sensor Device See Rx Instructions .Route Qty: 2 3RF Rx Instructions: To measure BG 4-6 times per day (DME) FreeStyle Jr 3 [place] Misc See Rx Instructions .Route Qty: 1 0RF Rx Instructions: As directed insulin glargine [Lantus Solostar U-100 Insulin] 100 unit/mL (3 mL) insulin pen 20 unit subcut QAM Qty: 15 3RF Rx Instructions: Take Lantus 20 units daily in the morning Referrals: Yosi Anand FNP-C [Primary Care Provider, Internal Medicine] Print Language: Czech
--- OUTSIDE RECORDS SUMMARY | 2025-08-11 16:30 | XMS_ITS | Clinical Summary ---
Author Organization [facility] Address [address] [place] [id number] Phone Care Team Providers Care Women'S Swim Coach Name Role Phone Unknown, Unknown Primary Care [...] MEDEX SUPPLEMENT MEDICARE PART A & B [facility] FULL MEDEX SUPPLEMENT MEDICARE PART A & B [employer] FULL MEDEX SUPPLEMENT MEDICARE PART A & B [employer] NET FULL [employer] MEDEX SUPPLEMENT MEDICARE PART A & B [facility] FULL [employer] MEDEX SUPPLEMENT MEDICARE PART A & B [facility] FULL MEDEX SUPPLEMENT MEDICARE PART A & B [employer] NET FULL MEDEX SUPPLEMENT MEDICARE PART A & B [employer] NET FULL [employer] MEDEX SUPPLEMENT MEDICARE PART A & B [facility] FULL [employer] [place] MEDEX SUPPLEMENT MEDICARE PART A & B [facility] FULL Care Teams Women'S Swim Coach Relationship Specialty Start Date End Date Unknown, Unknown, PCP - General 12/21/18 Additional Source Comments The information contained in this document represents components of the legal health record. It is not the complete legal health record.[facility]
--- OUTSIDE RECORDS SUMMARY | 2025-08-11 16:30 | XMS_ITS | Clinical Summary ---
Author Organization [address] [facility] Address [address] [place] [address] Phone Care Team Providers Care Solvent Plant Treater Name Role Phone Christopher Zamudio MD Primary Care Provider [phone] Surgical History Surgery Date Site/Laterality Comments CHOLECYSTECTOMY [...] 10/17/2020 DX:Type 2 diabetes mellitus with cataract ([facility]) Arrhythmia 10/17/2020 DX:Arrhythmia Family History [...] Info) Description 10/10/2025 10:00 AM EST Evaluation [facility] Occupational Therapy [address] [place] [id number] Hannah Haas, OTR/L Health Maintenance Due [...] Documents on File Type Date Recorded Patient Acquisition Consultant Expl anation Health Care Decision (hx) 08/20/2023 AD العراقي DIRECTIVE Health Care Decision (hx) 08/20/2023 AD العراقي DIRECTIVE Care Teams Solvent Plant Treater Relationship Specialty Start Date End Date Christopher Zamudio MD [address] [place] [address] Drive [address] [place] [address] PCP - General 09/10/16
--- OUTSIDE RECORDS SUMMARY | 2025-08-11 16:30 | XMS_ITS | Data Portability ---
Author Organization [facility], Main Office Address [address] [address] [address] [place] [address] Care Team Providers Care Continuity Editor Name Role Phone TISHA MANZO Primary Care Provider YARA CISNEROS 2ND FLOOR OTHER [phone] Assessment Encounter Date Assessment Date Assessment LastModified [...] Address Organization Details Recorded Time Bacteremi a 5114182 Active 2022 MSSA foot infection Not Available [facility] 4 02:47:47 Type 2 diabetes mellitus 93066494 Active 2022 Not Available [facility] 4 02:47:47 Hypothyro idism 72693459 Active 2022 Not Available [facility] 4 02:47:47 Chronic kidney disease 453293263 Active 2022 Not Available [facility] 4 02:47:47 Gout 66149913 Active 2022 Not Available [facility] 4 02:47:47 Gastroeso phageal reflux disease without esophagit is 969421910 Active 2022 Not Available [facility] 4 02:47:47 Hyperlipi demia 07055235 Active 2022 Not Available [facility] 4 02:47:47 Essential hypertens ion 87941052 Active 2022 Not Available [facility] 4 02:47:47 Hypomagne semia 940924251 Active 2023 Not Available [facility] 4 02:47:47 Vitamin D deficienc y 41050634 Active 2023 Not Available [facility] 4 02:47:47 Chronic diastolic heart failure 748678721 Active 2023 Janee Davis MD [address] [facility], [facility] [address], [place], [address] , [employer] 4 10:48:17 Anemia 918006607 Active 2023 Janee Davis MD [address] [facility], [address], [place], [address] , [facility] 4 11:10:38 Bimalleol ar fracture of ankle 785412073 Active 2023 TATI CURRIE [address] [facility], [facility] [address], [place], [address] , 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 Please review this document and add these problems to the patient's chart manually as needed. Problem Notes None recorded. Medical Equipment None Reported. Allergies Allergen ID Allergen Name Allergen Category Reaction Reaction Severity Criticality Documentation Date Start Date Code Code System Note Provider Name and Address Organization Details Recorded Time 61869 codeine medicatio n Not available Not available Not available 08/20/2023 2670 RxNorm ALVARADO DEL CID NP [address] [facility], [address], [place], [address], [facility] 3 10:53:18 Vitals Date Recorded Body height Heart rate Respiratory rate Body temperature Systolic And Diastolic Provider Name and Address Organization Details Last Updated DateTime 4 170.18 cm 80 /min 16 /min 98 [degF] 129/78 mm[Hg] TATI CURRIE [address] [facility], [address], [place], [address], [facility] 4 10:52:49 Date Recorded Body height Body temperature Respiratory rate Heart rate Systolic And Diastolic Provider Name and Address Organization Details Last Updated DateTime 4 170.18 cm 97.3 [degF] 18 /min 68 /min 122/68 mm[Hg] TATI CURRIE [address] [facility], [address], [place], [address], [facility] 4 14:33:03 Date Recorded Body height Heart rate Respiratory rate Body temperature Systolic And Diastolic Provider Name and Address Organization Details Last Updated DateTime 4 170.18 cm 74 /min 18 /min 98 [degF] 132/74 mm[Hg] TATI CURRIE [address] [facility], [address], [place], [address], [facility] 4 12:19:44 Date Recorded Body height Body mass index (BMI) Body weight Heart rate Respiratory rate Body temperature Oxygen saturation Systolic And Diastolic Provider Name and Address Organization Details Last Updated DateTime 4 170.18 cm 31.6 kg/m2 33029.6 6 g 79 /min 18 /min 97.4 [degF] 100 % 141/75 mm[Hg] Janee Davis MD [address] [facility], [address], [place], [address], [facility] 4 21:07:19 Date Recorded Body height Heart rate Respiratory rate Body temperature Oxygen saturation Systolic And Diastolic Provider Name and Address Organization Details Last Updated DateTime 4 170.18 cm 79 /min 18 /min 98 [degF] 100 % 141/75 mm[Hg] TATI CURRIE [address] [facility], [address], [place], [address], [facility] 4 14:26:02 Social History Question Answer Notes LastModified by Rizzoma Details LastModified Time Tobacco Smoking Status Never Smoker ALVARADO DEL CID NP [address] [facility], [address], [place], [address], [facility] 08/20/2023 11:16:58 Do You Have An Advance Directive? Yes Information not available 08/20/2023 What Is Your Code Status? Full Code Information not available 08/20/2023 Where Do You Live? SingleLevelHouse Lives With Son, 3-4 Steps To Enter Information not available 08/24/2023 Legal Guardian? No Informati on not available 08/24/2023 Do You Have A Medical Power Of Colorer Hides And Skins? Yes Information not available 08/24/2023 What Was [...] Functional Status Question Answer Note LastModified by Rizzoma Details LastModified Time Do you use any [...] adjuvanted, quadrivalent, PF 3 completed Not Available [facility] 09/30/2023 02:47:47 Td(adult) unspecified formulation 1 completed [facility] 12/28/2023 16:20:20 SARS-COV-2 (COVID-19) vaccine, UNSPECIFIED 1 completed [facility] 12/28/2023 16:20:43 SARS-COV-2 (COVID-19) vaccine, UNSPECIFIED 1 completed [facility] 12/28/2023 16:20:50 pneumococcal polysaccharide PPV23 1 completed [facility] 12/28/2023 16:21:57 SARS-COV-2 (COVID-19) vaccine, UNSPECIFIED 1 completed [facility] 12/28/2023 16:22:45 Past Encounters Encounter ID Performer Location Encounter Start Date Encounter Closed Date Diagnosis/Indication Diagnosis SNOMED-CT Code Diagnosis ICD10 Code Diagnosis IMO Codes Diagnosis Note [id number] SCOTT NOBLES AMELIA [address] [place] [address] [place] [address] 08/20/2023 09:52:59 08/31/2023 13:27:41 Bacteremia 0212564 R78.81 flush picc qshiftcefa zolin 1 gm bid to 2/2followu p with vascular as planned Type 2 tiara betes mellitus 77230025 E11.9 humulin/re g 70/30 50 units bidmonitor glucose Chronic ki dney disease 674756775 N18.9 monitor labsavoid nephrotoxi c meds Gastroesop hageal reflux disease without esophagitis 410843778 K21.9 mag ox 400 mg daily to 8omepraz ole 20 mg daily Gout 14912893 M10.9 allopurino l 100 mg dailyD3 1250 o30llvk Hyperlipidemia 48757437 E78.5 fenofibrat e 160 mg daily Hypothyroidism 49841126 E03.9 hx of Essential hypertension 34705828 I10 lasix 20 mg dailyhydra lazine 25 mg bidtoprol 25 mg dailymonit or bplisinopr il stopped in hospital [id number] ALVARADO DEL CID [facility] [address] [place] [address] [place] [address] 08/24/2023 13:44:02 08/25/2023 03:52:21 Type 2 diabetes mellitus 57639110 E11.9 humulin/re g 70/30 50 units bidmonitor glucose Bacteremia 0356117 R78.8 1 flush picc qshiftcefa zolin 1 gm bid to 2/2followu p with vascular as planned [id number] Janee Davis MD [address] [place] [address] 08/24/2023 15:18:19 08/31/2023 14:10:55 Type 2 diabetes mellitus 24375118 E11.9 With some hypoglycem ia.Humulin 70/30 was lowered from 50 units BID to 25U BID and SSI continued. Monitor fingerstic ks, will change from TID to qid, with low dose SS at hs.HgA1C was 6.7 inpt. 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 Vasc. surgeon (Dr. Friedman) felt that all diseased bone was removed.Co ntinue cefazolin 1 gm IV BID until 09/24 to complete 6 wk course.Con tinue wound care as ordered.F/ U with Dr. Friedman as planned. Chronic ki dney disease 045727168 N18.32 Back to baseline.C ontinue to avoid nephrotoxi c meds as able.Monit or labs.Renal consult prn. Gastroesop hageal reflux disease without esophagitis 620042043 K21.9 No current sxs.Contin ue omeprazole 20 mg qdMonitor sxs. Gout 41371739 M10.09 No current sxs.Contin ue allopurino l 100 mg qdMonitor for flare. Hyperlipidemia 09046816 E78.49 Continue fenofibrat e 160 mg qdMonitor as outpt. Hypothyroidism 04101497 E03.8 In hx.TSH WNL in 11/2022Moni tor as outpt Essential hypertension 95173504 I10 BP borderline at times, but acceptable for age.BP goal for this elderly woman is permissive HTN, with SBP<150 and DBP<90Cont inue lasix 20 mg qd, hydralazin e 25 mg BID and metoprolol 25 mg qd.Monitor BP and labs.No need to restart lisinopril at this time Hypomagnesemia 395074759 E83.42 Continue Mg+ 400 mg qd until 08/30, then recheck level Vitamin D deficiency 347 95040 E55.9 Continue ergocalcif denisse 50,000 IU every 14 days.Monit or levels [id number] TATI CURRIE [address] [address] 08/31/2023 11:38:57 09/08/2023 12:37:11 Bacteremia 1941766 R78.81 continuece fazolin 1 gm bid to 2ollow up with vascular Type 2 tiara betes mellitus 88416659 E11.9 200-280's mainlyhumu mahesh/reg 70/30 50 units bidmonitor glucose Chronic ki dney disease 713499167 N18.9 monitor labsavoid nephrotoxi c meds Gastroesop hageal reflux disease without esophagitis 719283124 K21.9 mag ox 400 mg daily to 08/30omepraz ole 20 mg daily Gout 22173983 M10.9 allopurino l 100 mg dailyD3 1250 g35njra Hyperlipidemia 61541211 E78.5 fenofibrat e 160 mg daily Hypothyroidism 39448904 E03.9 hx of Essential hypertension 72941180 I10 lasix 20 mg dailyhydra lazine 25 mg bidtoprol 25 mg dailymonit or bplisinopr il stopped in hospital [id number] TATI CURRIE [address] [address] 09/02/2023 09:40:27 09/08/2023 13:38:51 Bacteremia 7637990 R78.81 continueMS SA right footcefazo mahesh 1 gm bid to 22follow up with vascular Type 2 tiara betes mellitus 87113699 E11.9 200-280's mainlychan ged back to humulin/re g 70/30 50 units bidmonitor glucose Osteomyeli tis of right foot 8465789542 068135 M86.271 S/P I&D and debridemen t. Vasc. surgeon (Dr. Friedman) felt that all diseased bone was removed.Co ntinue cefazolin 1 gm IV BID until 2/ to complete 6 wk course.Con tinue wound care as ordered.F/ U with Dr. Friedman as planned. Edema of l ower extremity 746835075 R60.0 chronic BLEright greater than left [id number] TATI CURRIE [address] [address] 09/07/2023 13:02:41 09/13/2023 15:17:43 Bacteremia 0443661 R78.81 continueMS SA right footcefazo mahesh 1 gm bid to 2ollow up with vascular Type 2 tiara betes mellitus 39854249 E11.9 lispro SSChumulin /reg 70/30 50 units bidmonitor glucose Osteomyeli tis of right foot 3101285025 241317 M86.271 S/P I&D and debridemen t. Vasc. surgeon (Dr. Friedman) felt that all diseased bone was removed.Co ntinue cefazolin 1 gm IV BID until 2 to complete 6 wk course.Con tinue wound care as ordered.F/ U with Dr. Friedman as planned. Edema of l ower extremity 122348065 R60.0 chronic BLEright greater than left [id number] TATI CURRIE [address] [address] 09/10/2023 06:52:27 09/15/2023 13:31:46 Bacteremia 1510812 R78.81 continueMS SA right footcefazo mahesh 1 gm bid to 2ollow up with vascular Type 2 tiara betes mellitus 43916562 E11.9 I spoke with patient today. previously [...] bidmonitor glucose Osteomyeli tis of right foot 1163535147 135802 M86.271 S/P I&D and debridemen t. Vasc. surgeon (Dr. Friedman) felt that all diseased bone was removed.Co ntinue cefazolin 1 gm IV BID until 2/2 to complete 6 wk course.Con tinue wound care as ordered.F/ U with Dr. Friedman as planned. Edema of l ower extremity 731879800 R60.0 chronic BLEright greater than left [id number] TATI CURRIE [address] [address] 09/14/2023 07:53:08 09/17/2023 08:57:48 Bacteremia 2283659 R78.81 continueMS SA right footcefazo mahesh 1 gm bid to 2/2follow up with vascular Type 2 tiara betes mellitus 87988478 E11.9 I spoke with patient today. previously [...] bidmonitor glucose Osteomyeli tis of right foot 1175802698 537158 M86.271 S/P I&D and debridemen t. Vasc. surgeon (Dr. Friedman) felt that all diseased bone was removed.Co ntinue cefazolin 1 gm IV BID until 2/2 to complete 6 wk course.Con tinue wound care as ordered.F/ U with Dr. Friedman as planned. Edema of l ower extremity 240601366 R60.0 chronic BLEright greater than left [id number] TATI CURRIE [address] [address] 09/17/2023 08:23:28 09/22/2023 11:50:26 Bacteremia 4800163 R78.81 continueMS SA right footcefazo mahesh 1 gm bid to 2/2follow up with vascular Type 2 tiara betes mellitus 31314896 E11.9 lispro SSChumulin /reg 70/30 30 units bidmonitor glucose Osteomyeli tis of right foot 2156953203 858043 M86.271 S/P I&D and debridemen t. Vasc. surgeon (Dr. Friedman) felt that all diseased bone was removed.Co ntinue cefazolin 1 gm IV BID until 09/24 to complete 6 wk course.Con tinue wound care as ordered.F/ U with Dr. Friedman as planned. Edema of l ower extremity 595417452 R60.0 chronic BLEright greater than left [id number] TATI CURIRE [address] [place] [address] 09/21/2023 07:59:18 09/29/2023 08:59:51 Bacteremia 9281301 R78.81 continueNE SA right footcefazo mahesh 1 gm bid to 2/ollow up with vascular Type 2 tiara betes mellitus 68620235 E11.9 lispro SSChumulin /reg 70/30 30 units bidmonitor glucose Osteomyeli tis of right foot 4048913597 029667 M86.271 S/P I&D and debridemen t. Vasc. surgeon (Dr. Friedman) felt that all diseased bone was removed.Co ntinue cefazolin 1 gm IV BID until 09/24 to complete 6 wk course.Con tinue wound care as ordered.F/ U with Dr. Friedman as planned. Edema of l ower extremity 597334435 R60.0 chronic BLEright greater than left [id number] TATI CURRIE [address] [place] [address] 09/24/2023 12:21:41 09/29/2023 13:31:08 Bacteremia 2555501 R78.81 resolved Type 2 tiara betes mellitus 50142512 E11.9 humulin/re g 70/30 50 units bid Chronic ki dney disease 243351725 N18.9 monitor labsavoid nephrotoxi c meds Gastroesop hageal reflux disease without esophagitis 763073868 K21.9 mag ox 400 mg daily to 08/30omepraz ole 20 mg daily Gout 52257561 M10.9 allopurino l 100 mg dailyD3 1250 q16qrsv Hyperlipidemia 61352060 E78.5 fenofibrat e 160 mg daily Hypothyroidism 06524811 E03.9 TSH WNL in 11/2022Moni tor as outptcurre ntly not on medication . Essential hypertension 00975402 I10 lasix 20 mg dailyhydra lazine 25 mg bidtoprol 25 mg daily Osteomyeli tis of right foot 4176989319 339028 M86.271 S/P I&D and debridemen t. Vasc. surgeon (Dr. Friedman) felt that all diseased bone was removed.co mpleted IV cefazolin 1 gm IV BID 09/24/23Cont inue wound care as ordered.F/ U with Dr. Friedman as planned. Hypomagnesemia 826727229 E83.42 monitor outpt labs Vitamin D deficiency 347 80121 E55.9 Continue ergocalcif denisse 50,000 IU every 14 days.Monit or levels [id number] Janee Davis MD [address] [address] 12/28/2023 15:33:48 01/13/2024 12:52:53 Chronic diastolic heart failure 171296074 I50.32 Appears euvolemic. Continue furosemide 40 mg qd and hydralazin e 25 mg BID.Monito r resp. status, fluid status, wts and labs. Paroxysmal atrial fibrillation 168154180 I48.0 Rate in good control on diltiazem 120 mg qd.Continu e eliquis 5 mg BID for AC.Monitor HR and bleeding risk. Type 2 tiara betes mellitus 05921070 E11.9 This AM FBS was 88. Last time she was here fastings tended to be ok, but with high sugars later in the day.HgA1C was 7.1 this AMContinue Humulin 70/30 20U BID and SSI.Monito r fingerstic ks TID Chronic ki dney disease 509289763 N18.32 Back to baseline.C ontinue to avoid nephrotoxi c meds as able.Monit or labs.Renal consult prn. Essential hypertension 57343918 I10 BP borderline at times, but acceptable for age.BP goal for this elderly woman is permissive HTN, with SBP<150 and DBP<90Cont inue meds as above.Rebeca tor BP and labs. Gastroesop hageal reflux disease without esophagitis 720857732 K21.9 No current sxs.Contin ue omeprazole 20 mg qdMonitor sxs. Gout 95673053 M10.09 No current sxs.Contin ue allopurino l 100 mg qdMonitor for flare. Hyperlipidemia 82515171 E78.49 Continue fenofibrat e 160 mg qdMonitor as outpt. Hypothyroidism 90538798 E03.8 In hx.TSH WNL inpt.Monit or as outpt Hypomagnesemia 526563890 E83.42 Continue Mg+ 400 mg BID.Monito r levels Vitamin D deficiency 347 83965 E56.8 Vit D supplement is ordered as cholecalci ferol 5000 IU every 14 days.Is supposed to be ergocalcif denisse 50,000 IU qd, will change.Mon itor levels Anemia 310921172 D64.89 Multifacto rial.Follo ws with Dr. White and gets procrit every few wks (has been irregular due to hospitaliz ations).Mo nitor labs Closed bim alleolar fracture of right ankle 4668562872 6235732 S82.841D Four wks from original injury.Con tinue PT/OT for strengthen ing, balance, gait training, safety and function.C ontinue APAP 1000 mg q 4 hrs prn, NTE 3000 mg/dContin ue fall precaution s.Monitor for safety.F/U with ortho as planned. [id number] TATI CURRIE [address] [place] [address] rd [place] [address] 01/03/2024 13:24:31 01/05/2024 10:19:57 Chronic diastolic heart failure 964896184 I50.32 continue lasix 40 mg dailyconti nue potassium 20 meq daily Paroxysmal atrial fibrillation 031508808 I48.0 Cardizem 120 mg dailyconti nue eliquis 2.5 mg BID Type 2 tiara betes mellitus 41827094 E11.9 With some hypoglycem ia.continu e Humulin 70/30 20 units BID and SSI continued. continue fingerstic ks QID Essential hypertension 17142944 I10 BP goal for this elderly woman is permissive HTN, with SBP<150 and DBP<90Cont inue lasix 40 mg qd, hydralazin e 25 mg BID lasix 40 mg dailyMonit or BP and labs. Open wound of left lower leg 7516203907 7565186 S81.802A patient son reports that she gets wound care at [facility] and she suppose to have calcium alginate and zinc applied to and around left lower extremity wound. He wants this to continue until wound MD can eval.wound MD alarcon and treatwill ordered to cleanse wound with NS apply calcium alginate and zinc ben wound. [id number] TATI CURRIE [address] [address] 01/07/2024 14:10:11 01/10/2024 13:39:22 Open wound of left lower leg 6852905817 2905456 S81.802A patient son reports that she gets wound care at [facility] and she suppose to have calcium alginate and zinc applied to and around left lower extremity wound. He wants this to continue until wound MD can eval.wound MD alarcon and treatwill ordered to cleanse wound with NS apply calcium alginate and zinc ben wound. Chronic di astolic heart failure 847495494 I50.32 continue lasix 40 mg dailyconti nue potassium 20 meq daily Paroxysmal atrial fibrillation 770805445 I48.0 Cardizem 120 mg dailyconti nue eliquis 2.5 mg BID Type 2 tiara betes mellitus 05508193 E11.9 With some hypoglycem ia.continu e Humulin 70/30 20 units BID and SSI continued. continue fingerstic ks QID Essential hypertension 11385261 I10 BP goal for this elderly woman is permissive HTN, with SBP<150 and DBP<90Cont inue lasix 40 mg qd, hydralazin e 25 mg BID lasix 40 mg dailyMonit or BP and labs. [id number] TATI CURRIE [address] [address] 01/11/2024 10:33:27 01/13/2024 16:16:44 Open wound of left lower leg 0876887730 1439374 S81.802A patient son reports that she gets wound care at [facility] [place] and she suppose to have calcium alginate and zinc applied to and around left lower extremity wound. He wants this to continue until wound can dorian.wound MD alarcon and quinton ordered to cleanse wound with NS apply calcium alginate and zinc ben wound. Chronic di astolic heart failure 374440394 I50.32 continue lasix 40 mg dailyconti nue potassium 20 meq daily Paroxysmal atrial fibrillation 347952790 I48.0 Cardizem 120 mg dailyconti nue eliquis 2.5 mg BID Type 2 tiara betes mellitus 07992762 E11.9 With some hypoglycem ia.continu e Humulin 70/30 20 units BID and SSI continued. continue fingerstic ks QID Essential hypertension 27267400 I10 BP goal for this elderly woman is permissive HTN, with SBP<150 and DBP<90Cont inue lasix 40 mg qd, hydralazin e 25 mg BID lasix 40 mg dailyMonit or BP and labs. Anemia 751983226 D64.89 H/H trending down this weekstarte d procrit 10/16 and scheduled for bi weeklyunsu re when she last receivedwi ll follow up with patient son. [id number] TATI CURRIE [address] [place] [address] 01/13/2024 10:07:39 01/25/2024 10:52:36 Open wound of left lower leg 2994898766 6835629 S81.802A patient son reports that she gets wound care at [facility] [place] and she suppose to have calcium alginate and zinc applied to and around left lower extremity wound. He wants this to continue until wound can eval.wound MD alarcon and quinton ordered to cleanse wound with NS apply calcium alginate and zinc ben wound. Chronic di astolic heart failure 972956183 I50.32 continue lasix 40 mg dailyconti nue potassium 20 meq daily Paroxysmal atrial fibrillation 478922745 I48.0 Cardizem 120 mg dailyconti nue eliquis 2.5 mg BID Type 2 tiara betes mellitus 87514087 E11.9 With some hypoglycem ia.continu e Humulin 70/30 20 units BID and SSI continued. continue fingerstic ks QID Essential hypertension 24799421 I10 BP goal for this elderly woman is permissive HTN, with SBP<150 and DBP<90Cont inue lasix 40 mg qd, hydralazin e 25 mg BID lasix 40 mg dailyMonit or BP and labs. Anemia 814808558 D64.89 HX of normochrom ic normocytic anemiaH/H trending down this week - tends to fluctuates tarted procrit 18930 10/16 and scheduled for bi weeklyRece ived doses on 10/27, 11/10, 11/24, 12/19 and 01/11/24 Bimalleola r fracture of ankle 561879123 S82.841A chronic with [facility] arthropath y with deformity ankle and midfoothx of infection with osteomyeli tis August 2023follow ed by [facility]- last seen on 01/07/24- recommend 2 tx option 1.conserva tive treatment wit off loading as much as possible, wear heel protector boot.2. Surgical reconstruc tion [id number] SHAE MOSELEY, AQUA AMMONIA OPERATOR [facility] [address] [place] [address] 01/20/2024 09:44:29 01/25/2024 11:59:00 Open wound of left lower leg 6913870933 2618861 S81.802A continue calcium alginate and zinc left lower extremity woundwound MD alarcon and quinton ordered to cleanse wound with NS apply calcium alginate and zinc ben wound. Chronic di astolic heart failure 834815984 I50.32 stablecont inue lasix 40 mg dailyconti nue potassium 20 meq daily Paroxysmal atrial fibrillation 748301065 I48.0 HR 69Cardizem 120 mg dailyconti nue eliquis 2.5 mg BID Type 2 tiara betes mellitus 58375586 E11.9 With some hypoglycem ia.continu e Humulin 70/30 20 units BID and SSI continued. 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 Surgical reconstruc tion [id number] TATI CURRIE [address] [address] 01/25/2024 10:02:09 01/31/2024 15:51:53 Open wound of left lower leg 8747632486 5203973 S81.802A continue calcium alginate and zinc left lower extremity woundwound MD alarcon and treatwill ordered to cleanse wound with NS apply calcium alginate and zinc ben wound. Chronic di astolic heart failure 910273113 I50.32 continue lasix 40 mg dailyconti nue potassium 20 meq daily Paroxysmal atrial fibrillation 343732662 I48.0 Cardizem 120 mg dailyconti nue eliquis 2.5 mg BID Type 2 tiara betes mellitus 79890848 E11.9 no recent hypoglycem ic events.con tinue Humulin 70/30 20 units BID and SSI continued. 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 Surgical reconstruc tion [id number] TATI CURRIE [address] [address] 01/28/2024 15:29:14 02/01/2024 08:26:24 Open wound of left lower leg [id number] 8254131 S81.802A [facility] with NS apply calcium alginate and zinc ben wound.elev ate left foot/heel when sitting to keep DTI well perfused Chronic di astolic heart failure 095015417 I50.32 continue lasix 40 mg dailyconti nue potassium 20 meq daily Paroxysmal atrial fibrillation 915961539 I48.0 Cardizem 120 mg dailyconti nue eliquis 2.5 mg BID Type 2 tiara betes mellitus 47365192 E11.9 no recent hypoglycem ic events.con tinue Humulin 70/30 20 units BID and SSI continued. continue fingerstic ks QID Anemia 044555876 D64.89 recent labs stable,HX of normochrom ic normocytic anemiacont inue procrit 89157 10/16 and scheduled for bi weekly Bimalleola r fracture of ankle 367661080 S82.841A she gets [facility] was seen on 01/23 and will f/u in 2 weeksconti nue with current dressing change. 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 Surgical reconstruc tion [id number] TATI CURRIE [address] [facility] [place] [address] 02/01/2024 10:24:39 02/04/2024 08:49:56 Open wound of left lower leg [id number] 8751045 S81.802A continue to cleanse wound with NS apply calcium alginate and zinc ben wound.elev ate left foot/heel when sitting to keep DTI well perfused Chronic di astolic heart failure 215846307 I50.32 continue lasix 40 mg dailyconti nue potassium 20 meq daily Paroxysmal atrial fibrillation 740508021 I48.0 Cardizem 120 mg dailyconti nue eliquis 2.5 mg BID Type 2 tiara betes mellitus 83586831 E11.9 no recent hypoglycem ic events.con tinue Humulin 70/30 20 units BID and SSI continued. continue fingerstic ks QID Anemia 077956119 D64.89 recent labs stable,HX of normochrom ic normocytic anemiacont inue procrit 90474 10/16 and scheduled for bi weekly Bimalleola r fracture of ankle 657927474 S82.841A She [facility] was seen on 01/23 and will f/u in 2 weeksconti nue with current dressing change. 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 Surgical reconstruc tion Chronic ki dney disease 293727049 N18.32 monitor labsavoid nephrotoxi c meds Essential hypertension 70035216 I10 blood pressure has been stable 120-130sBP goal for this elderly woman is permissive HTN, with SBP<150 and DBP<90Cont inue lasix 40 mg qd, hydralazin e 25 mg BID lasix 40 mg dailyMonit or BP and labs. Gout 13668884 M10.09 allopurino l 100 mg dailynot reported recent flare up. [id number] TATI CURRIE [address] [place] [address] 02/04/2024 09:44:41 02/07/2024 14:37:26 Open wound of left lower leg [id number] 0272444 S81.802A continue to cleanse wound with NS apply calcium alginate and zinc ben wound.elev ate left foot/heel when sitting to keep DTI well perfused Chronic di astolic heart failure 466822372 I50.32 euvolemicc ontinue lasix 40 mg dailyconti nue potassium 20 meq daily Paroxysmal atrial fibrillation 841880925 I48.0 Cardizem 120 mg dailyconti nue eliquis 2.5 mg BID Type 2 tiara betes mellitus 72723394 E11.9 BGLs mainly under 200's, a few noted in the 400s. patient and son are very particular about insulin dosing, so will not adjust.con tinue Humulin 70/30 20 units BID and SSI continued. continue fingerstic ks QID Anemia 473217710 D64.89 continue procrit 78087 224 and scheduled for bi weekly Bimalleola r fracture of ankle 350895657 S82.841A She [facility] was seen on 01/23 and [...] protector boot.2. Surgical reconstruc tion Essential hypertension 00764302 I10 BP goal for this elderly woman is permissive HTN, with SBP<150 and DBP<90Cont inue lasix 40 mg qd, hydralazin e 25 mg BID lasix 40 mg dailyMonit or BP and labs. [id number] TATI CURRIE [address] [place] [address] 02/07/2024 11:53:48 02/09/2024 16:49:24 Open wound of left lower leg [id number] 3493430 S81.802A continue to cleanse wound with NS apply calcium alginate and zinc ben wound.elev ate left foot/heel when sitting to keep DTI well perfused Chronic di astolic heart failure 939272135 I50.32 continue lasix 40 mg dailyconti nue potassium 20 meq daily Paroxysmal atrial fibrillation 283850433 I48.0 Cardizem 120 mg dailyconti nue eliquis 2.5 mg BID Type 2 tiara betes mellitus 31534160 E11.9 continue Humulin 70/30 20 units BID and SSI continued. continue fingerstic ks QID Anemia 204055248 D64.89 continue procrit 56974 2 and scheduled for bi weekly Essential hypertension 13308601 I10 Continue lasix 40 mg qd, hydralazin e 25 mg BID lasix 40 mg dailyMonit or BP and labs. [id number] TATI CURRIE [address] [address] 02/10/2024 09:22:17 02/16/2024 10:42:27 Open wound of left lower leg 9159072011 8197681 S81.802A continue to cleanse wound with NS apply calcium alginate and zinc ben wound. PCC updatedele vate left foot/heel when sitting to keep DTI well perfused Chronic di astolic heart failure 829329110 I50.32 continue lasix 40 mg dailyconti nue potassium 20 meq daily Paroxysmal atrial fibrillation 262456686 I48.0 Cardizem 120 mg dailyconti nue eliquis 2.5 mg BID Type 2 tiara betes mellitus 61413325 E11.9 continue Humulin 70/30 20 units BID and SSI continued. continue fingerstic ks QIDno reported hypo/hyper glycemic events. Essential hypertension 24582866 I10 Continue lasix 40 mg qd, hydralazin e 25 mg BID lasix 40 mg dailyMonit or BP and labs. [id number] Janee Davis MD [address] [address] 02/14/2024 21:04:27 03/14/2024 07:28:32 Chronic diastolic heart failure 720476851 I50.32 Appears euvolemic. Continue lasix 40 mg qd and KCl 20 meq qd to prevent hypokalemi a.Monitor resp. status, fluid status, wts and labs. Paroxysmal atrial fibrillation 317103597 I48.0 Rate in good control on meds as above.Cont inue eliquis 2.5 mg BID for AC.Monitor HR and bleeding risk. Type 2 tiara betes mellitus 88571145 E11.9 In adequate control.Co ntinue Humulin 70/30 20U BID and SSIContinu e fingerstic ks QID Essential hypertension 74309568 I10 In good control.Co ntinue lasix 40 mg qd, hydralazin e 25 mg BID, diltiazem 120 mg qd, and lasix 40 mg qdMonitor BP and labs. 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 Essential hypertension 16245569 I10 Continue lasix 40 mg qd, hydralazin e 25 mg BID lasix 40 mg dailyMonit or BP and labs. Chronic di astolic heart failure 771033339 I50.32 continue lasix 40 mg dailyconti nue potassium 20 meq daily Paroxysmal atrial fibrillation 865587462 I48.0 Cardizem 120 mg dailyconti nue eliquis 2.5 mg BID Type 2 tiara betes mellitus 42125972 E11.9 continue Humulin 70/30 20 units BID and SSI continued. continue fingerstic ks QIDno reported hypo/hyper glycemic events. Chronic ki dney disease 490057520 N18.32 Back to baseline.C ontinue to avoid nephrotoxi c meds as able.Monit or labs.Renal consult prn. Closed bim alleolar fracture of right ankle 8066550442 8944834 S82.841D Continue APAP 1000 mg q 4 hrs prn, NTE 3000 mg/dContin ue fall precaution s.Monitor for safety.F/U with ortho Gastroesop hageal reflux disease without esophagitis 351005957 K21.9 Continue omeprazole 20 mg qd Gout 10230345 M10.09 Continue allopurino l 100 mg qdMonitor for flare. Hyperlipidemia 96487785 E78.49 Continue fenofibrat e 160 mg qdMonitor as outpt. Hypothyroidism 90059904 E03.8 not on medsTSH WNL inpt.Monit or as outpt Hypomagnesemia 183135639 E83.42 Continue Mg+ 400 mg BID.Monito r levels Vitamin D deficiency 347 61926 E56.8 ergocalcif denisse 50,000 IU qdMonitor levels Anemia 477360786 D64.89 Multifacto rial.justo nue procrit 45132 bi weekly Health Concerns Section Related Observation LastModified by Organization Detai ls LastModified Time None Recorded Concern Status LastModified by Organization Details LastModified Time None Recorded Advance Directives Directive Y: Payers Insurance Date Sequence Insurance Name Policy Number Policy Bravo Covered Member ID Bravo Member ID Guarantor Name 01/25/2024 1 [place] [employer] Susan Laurent [id number] Susan Laurent 03/14/2024 2 [place] [id number] Susan Laurent [id number] Susan Laurent Notes Date Note Type [...] her right ankle, most recently [place] [facility] [place].She initially presented [place] [facility] [place]26 after an unknown injury. Found to have an Acute displaced bimalleolar fracture with ankle mortise disruption. Complicated by chronic pain from right foot Charcot arthropathy. She was splinted and instructed in strict NWB status and d/c to [facility]. Of note she had just been dxed with new onset Afib on 11/24 and started on diltiazem and apixaban.Returned to [facility] on 12/13, several days after d/c from [facility], because of difficulty ambulating at home and unable to help her due to his own issues. D/C on 12/15 to [facility].Was sent to the [facility] on 12/17 because of [...] no acute nursing concerns. TATI CURRIE [address] [facility], [address], [place], [address], [facility] 02/04/2024 11:01:05 02/07/2024 text/html ROS as noted [...] her right ankle, most recently at [facility] [place]F exacerbation.She initially presented to the [facility] on 11/26 after an unknown injury. Found to have an Acute displaced bimalleolar fracture with ankle mortise disruption. Complicated by chronic pain from right foot Charcot arthropathy. She was splinted and instructed in strict NWB status and d/c to [facility]. Of note she had just been dxed with new onset Afib on 11/24 and started on diltiazem and apixaban.Returned to [facility] on 12/13, several days after d/c from [facility], because of difficulty ambulating at home and unable to help her due to his own issues. D/C on 12/15 to [facility].Was sent to the [facility] on 12/17 because of SOB and AMS.Labs and vitals were WNL (except Na+147 and BNP 222) CXR showed pulmonary edema with small pleural effusions. Neg for RSV/influenza and covid.EKG showed NSR and she was continued on diltiazem and apixaban.She was txed with IV lasix and K+A left dhillon wound was followed by wound care. TATI CURRIE [address] [facility], [address], [place], [address], [facility] [employer] 02/07/2024 14:37:38 02/10/2024 text/html ROS as noted [...] and s/p MSSA sepsis. TATI CURRIE [address] [facility], [address], [place], [address], [employer] 02/10/2024 12:44:47 02/14/2024 text/html I am seeing this 88 yo woman for an acute visit today to f/u on RLE fx, ulcers and NWB status.Son has had concerns about mother refusing wound care and this is being addressed by nursing staff.She was seen at the [facility] [place] clinic on 02/06 and [...] s/p MSSA sepsis. Janee Davis MD [address] [facility], [address], [place], [address], [employer] 03/11/2024 19:10:29 02/18/2024 text/html This is an 88 yo woman due for discharge today. Patient has been in and out of rehabs and hosp since 11/26 when she broke her right ankle, most recently at [facility] [place] a CHF exacerbation.She initially presented to the [facility] on 11/26 after an unknown injury. Found to have a right Acute displaced bimalleolar fracture with ankle mortise disruption. Complicated by chronic pain from right foot Charcot arthropathy. She was splinted and instructed in strict NWB status and d/c to [facility]. Of note she had just been dxed with new onset Afib on 11/24 and started on diltiazem and apixaban.Returned to [facility] on 12/13, several days after d/c from [facility], because of difficulty ambulating at home and unable to help her due to his own issues. D/C on 12/15 to [facility].Was sent to the [facility] on 12/17 because of SOB and AMS.Labs and vitals were WNL (except Na+147 and BNP 222) CXR showed pulmonary edema with small pleural effusions. Neg for RSV/influenza and covid.EKG showed NSR and she was continued on diltiazem and apixaban.She was txed with IV lasix and K+A left dhillon wound was followed by wound care.She was transferred to [place] [facility] on [place] was done on 12/23 [...] and s/p MSSA sepsis. TATI CURRIE [address] [facility], [address], [place], [address], [facility] 02/18/2024 14:26:35 OBGyn Episode No OBEpisode recorded.
--- OUTSIDE RECORDS SUMMARY | 2025-08-11 16:30 | XMS_ITS | Patient Health Record ---
Author Organization [facility] Address [address] [place] [address] Care Team Providers Care Information Management Specialist Name Role Phone PriceWilber [phone] Reason For Referral No Information Plan Of Treatment No Information
--- OUTSIDE RECORDS SUMMARY | 2025-08-11 16:30 | XMS_ITS | Encounter Summary ---
Author Organization [facility] Address [address] [address] Phone Care Team Providers Care Environmental Epidemiologist Name Role Phone Christopher Zamudio MD Primary Care Provider [phone] Encounter Details Date Type Department Care Team (Late Contact Info) Description 08/10/2025 Orders Only [facility] [address] [address] Neo Rollins MD [facility] [address] [address] Social History Tobacco Use Types [...] Office Visit [facility] [address] [address] Neo Rollins MD [address] [address] documented as of this encounter Visit Diagnoses Not on filedocumented in this encounter Care Teams Environmental Epidemiologist Relationship Specialty Start Date End Date Christopher Zamudio MD NPI: [id number] [place] [address] [address] [place] PCP - General 09/02/20 documented as of this encounter
--- OUTSIDE RECORDS SUMMARY | 2025-08-11 16:30 | XMS_ITS | Clinical Summary ---
Author Organization [employer] Address [address] [place] [address] [address] [place] [address] Care Team Providers Care Front End Application Developer Name Role Phone Unavailable Primary Care Provider [...]
--- OUTSIDE RECORDS SUMMARY | 2025-08-11 16:30 | XMS_ITS | Clinical Summary ---
Author Organization [facility] Address [address] [address] Phone Care Team Providers Care Abstract Searcher Name Role Phone Christopher Zamudio MD Primary Care Provider Allergies Active Allergy Reactions Criticality Noted Date Comments Codeine Other (see comments) 02/28/2021 Metoprolol 09/26/2024 pt says she hallucinates Medications allopurinol (ZYLOPRIM) 100 MG tablet Take 100 mg by mouth daily 1 Active fenofibrate (TRIGLIDE) 160 MG tablet Take 160 mg by mouth daily 0 Active Accu-Chek Radha Plus test strip TEST [...] taking.Reported on 04/03/2025 epoetin jayna (EPOGEN,PROCRI T) 18240 UNIT/ML injectionIndic ations: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 180 tablet 5 08/20/20 25 Active furosemide (LASIX) 40 MG tablet Take 1 tablet (40 mg total) by mouth 1 (one) time each day 90 tablet 5 11/09/19 26 Active furosemide (LASIX) 40 MG tablet Take 20 mg by mouth daily 1 08/10/20 25 Discontin ued(Reord er (does not appear on AVS)) Active Problems Problem Noted Date Diagnosed Date [...] Overview (09/16/2022): Seen at [facility]. History of malignant basal cell neoplasm of skin 01/27/2019 Overview (09/16/2022): lip Encounters Date Type Department Care Team Description 08/10/2025 Orders Only [facility] [address] [address] Neo Rollins MD 05/22/2025 Refill [facility] [address] [address] Neo Rollins MD from Last 3 Months [...] Visit [facility] [address] [facility] [address] [place] [address] Neo Rollins MD [address] [facility] [address] [place] [address] Health Maintenance Due Date Last Done Comments Diabetes: Hemoglobin A1C 09/23/2020 04/18/2019 Diabetes: Ophthalmology Exam 09/23/2020 Diabetes: Pedal Pulse Checked 09/23/2020 Diabetes: Sensory Foot Exam 09/23/2020 Diabetes: Visual Foot Exam 09/23/2020 Pneumococcal Vaccine: 50+ Years (3 of 3 - PCV) 07/15/2022 07/15/2021, 07/06/2008 Influenza Vaccine (#1) 2025 3, 07/15/2021, 08/15/2019, Additional history exists Pneumococcal Vaccine: Peds (0 to 5 Years) and At-Risk Patients (6 to 49 Years) Discontinued 07/15/2021, 07/06/2008 Hepatitis B Vaccine Aged Out No longe [...] average glucose, using the formula of the O4E-Mszzxiz Average Glucose study (ADAG), Diabetes Care, Vol.31,#8, Mar. 2007 04/18/2019 10:3 4 AM EDT Christopher Zamudio MD LAB BLOOD ORDERABLES Final Resu lt [place] from Last 3 Months or Most Recently Relevant to Health Maintenance Insurance [facility] Medicare Medicaid [place] Medicare [facility] Medicaid [place] Care Teams Abstract Searcher Relationship Specialty Start Date End Date Christopher Zamudio MD [address] [place], [place] PCP - General 09/02/20
--- NOTE | 2025-08-11 16:56 | PC.NURSE ---
bleeding is controlled at this time, SCOTT Whitlock placed surgi cell and 2x2 gauze with a tegaderm.
[2025-08-11 17:25] LABS: Hematocrit 27.9 % (37.0-47.0); Hemoglobin 8.8 g/dl (12.0-16.0); Imm Gran Abs Auto 0.02 X10*3/uL (0.00-0.03); Imm Gran Pct Auto 0.3 % (0.0-0.4); Lymphocytes Absolute Auto 0.8 X10*3/uL (1.2-4.9); Mean Corpuscular HGB Conc 31.5 g/dl (31.0-35.0); Mean Corpuscular Hemoglobin 28.0 pg (27.0-33.0); Mean Corpuscular Volume 88.9 fL (80.0-98.0); NRBC Abs Auto 0.000 X10*3/uL (0.0-0.012); NRBC Pct Auto 0.0 /100WBC (0.0-0.2); Platelet Count 233 X10*3/uL (160-400); Red Blood Count 3.14 X10*6/uL (4.20-5.50); White Blood Count 5.8 X10*3/uL (4.8-10.8)
[2025-08-11 18:17] VITALS: BP 167/70; PULSE 68; RESP 20; TEMP 36.4; O2SAT 95
== END 2025-08-11 18:18 | disposition home or self-care (01) ==
PROVIDERS: Nurse Practitioner; Emergency Provider Emergency Medicine
DX: L76.21 Postprocedural hemorrhage of skin and subcutaneous tissue following a dermatologic procedure (principal); Z48.01 Encounter for change or removal of surgical wound dressing; I48.91 Unspecified atrial fibrillation; E11.9 Type 2 diabetes mellitus without complications; Z79.01 Long term (current) use of anticoagulants; Z79.899 Other long term (current) drug therapy; Z79.4 Long term (current) use of insulin
CPT/HCPCS: 36415; 85025; 85610; 99284

== ENCOUNTER 2025-08-14 11:17 | Outpatient (REF) | payer MEDICARE, SELFPAY ==
[2025-08-14 11:47] LABS: MANUAL DIFF FLAG NO
[2025-08-14 12:00] LABS: Hematocrit 29.2 % (37.0-47.0); Hemoglobin 9.3 g/dl (12.0-16.0); Imm Gran Abs Auto 0.05 X10*3/uL (0.00-0.03); Imm Gran Pct Auto 0.5 % (0.0-0.4); Lymphocytes Absolute Auto 0.8 X10*3/uL (1.2-4.9); Mean Corpuscular HGB Conc 31.8 g/dl (31.0-35.0); Mean Corpuscular Hemoglobin 28.8 pg (27.0-33.0); Mean Corpuscular Volume 90.4 fL (80.0-98.0); NRBC Abs Auto 0.000 X10*3/uL (0.0-0.012); NRBC Pct Auto 0.0 /100WBC (0.0-0.2); Platelet Count 250 X10*3/uL (160-400); Red Blood Count 3.23 X10*6/uL (4.20-5.50); White Blood Count 9.5 X10*3/uL (4.8-10.8)
[2025-08-14 12:12] LABS: Alanine Aminotransferase 11 U/L (0-31); Albumin Level 4.0 g/dL (3.5-5.0); Alkaline Phosphatase 60 U/L (39-117); Anion Gap 16 (12-20); Aspartate Amino Transferase 27 U/L (5-31); Blood Urea Nitrogen 61 mg/dL (9-16); Calcium 9.7 mg/dL (8.4-10.2); Carbon Dioxide 21 mmol/L (22-29); Chloride 109 mmol/L (96-108); Estimated Glomerular Filt Rate 14; Iron 32 mcg/dL (30-160); Percent Iron Saturation 11 % (15-50); Potassium 4.4 mmol/L (3.3-5.1); Sodium 142 mmol/L (135-145); Total Iron Binding Capacity 303 mcg/dL (228-428); Total Protein 6.8 g/dL (6.5-8.0); Unsaturated Iron Binding 271 ug/dL
[2025-08-14 12:26] LABS: Ferritin 39 ng/mL (10-250)
--- OUTSIDE RECORDS SUMMARY | 2025-08-14 12:41 | XMS_ITS | Clinical Summary ---
Author Organization [employer] Address [address] [place] [address] [address] [place] [address] Care Team Providers Care Maintenance Shop Welder Name Role Phone Unavailable Primary Care Provider [...]
--- OUTSIDE RECORDS SUMMARY | 2025-08-14 12:41 | XMS_ITS | Data Portability ---
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 Travel Agent Name Role Phone TISHA MANZO Primary Care [...] Address Organization Details Recorded Time Bacteremi a 0769349 Active 2022 MSSA foot infection Not Available [facility] 4 02:47:47 Type 2 diabetes mellitus 66646535 Active 2022 Not Available [facility] 4 02:47:47 Hypothyro idism 49002792 Active 2022 Not Available [facility] 4 02:47:47 Chronic kidney disease 084187003 Active 2022 Not Available [facility] 4 02:47:47 Gout 02994249 Active 2022 Not Available [facility] 4 02:47:47 Gastroeso phageal reflux disease without esophagit is 157644462 Active 2022 Not Available [facility] 4 02:47:47 Hyperlipi demia 66687451 Active 2022 Not Available [facility] 4 02:47:47 Essential hypertens ion 26856742 Active 2022 Not Available [facility] 4 02:47:47 Hypomagne semia 986278397 Active 2023 Not Available [facility] 4 02:47:47 Vitamin D deficienc y 04242512 Active 2023 Not Available [facility] 4 02:47:47 Chronic diastolic heart failure 794815479 Active 2023 Janee Davis MD [address] [facility], [facility] [address], [place], [address] , [employer] [facility] 4 10:48:17 Anemia 323346466 Active 2023 Janee Davis MD [address] [facility], [address], [place], [address] , [facility] 4 11:10:38 Bimalleol ar fracture of ankle 056616758 Active [address] 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, [address], [place], [address] , [employer] 4 23:00:37 Notes:Some problems listed i n Document: #[id number] could not be added to this patient's chart. Please review this document and add these problems to the patient's chart manually as needed. Problem Notes None recorded. Medical Equipment None Reported. Allergies Allergen ID Allergen Name Allergen Category Reaction Reaction Severity Criticality Documentation Date Start Date Code Code System Note Provider Name and Address Organization Details Recorded Time 71709 codeine medicatio n Not available Not available Not available 08/20/2023 2670 RxNorm ALVARADO DEL CID NP [address] [facility], [address], [place], [address], [facility] 3 10:53:18 Vitals Date Recorded Body height Heart rate Respiratory rate Body temperature Systolic And Diastolic Provider Name and Address Organization Details Last Updated DateTime 4 170.18 cm 80 /min 16 /min 98 [degF] 129/78 mm[Hg] TATI CURRIE [address] [facility], [address], [place], [address], [facility] 4 10:52:49 Date Recorded Body height Body temperature Respiratory rate Heart rate Systolic And Diastolic Provider Name and Address Organization Details Last Updated DateTime 4 170.18 cm 97.3 [degF] 18 /min 68 /min 122/68 mm[Hg] TATI CURRIE [address] [facility], [address], [place], [address], [facility] 4 14:33:03 Date Recorded Body height Heart rate Respiratory rate Body temperature Systolic And Diastolic Provider Name and Address Organization Details Last Updated DateTime 4 170.18 cm 74 /min 18 /min 98 [degF] 132/74 mm[Hg] TATI CURRIE [address] [facility], [address], [place], [address], [facility] 4 12:19:44 Date Recorded Body height Body mass index (BMI) Body weight Heart rate Respiratory rate Body temperature Oxygen saturation Systolic And Diastolic Provider Name and Address Organization Details Last Updated DateTime 4 170.18 cm 31.6 kg/m2 11498.6 6 g 79 /min 18 /min 97.4 [degF] 100 % 141/75 mm[Hg] Janee Davis MD [address] [facility], [address], [place], [address], [facility] 4 21:07:19 Date Recorded Body height Heart rate Respiratory rate Body temperature Oxygen saturation Systolic And Diastolic Provider Name and Address Organization Details Last Updated DateTime 4 170.18 cm 79 /min 18 /min 98 [degF] 100 % 141/75 mm[Hg] TATI CURRIE [address] [facility], [address], [place], [address], [facility] 4 14:26:02 Social History Question Answer Notes LastModified by Invenra Details LastModified Time Tobacco Smoking Status Never Smoker ALVARADO DEL CID NP [address] [facility], [address], [place], [address], [facility] 08/20/2023 11:16:58 Do You Have An Advance Directive? Yes Information not available 08/20/2023 What Is Your Code Status? Full Code Information not available 08/20/2023 Where Do You Live? SingleLevelHouse Lives With Son, 3-4 Steps To Enter Information not available 08/24/2023 Legal Guardian? 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 Yes Information not available 08/24/2023 What [...] Functional Status Question Answer Note LastModified by Invenra Details LastModified Time Do you use any [...] adjuvanted, quadrivalent, PF 3 completed Not Available [facility] 09/30/2023 02:47:47 Td(adult) unspecified formulation 1 completed [facility] 12/28/2023 16:20:20 SARS-COV-2 (COVID-19) vaccine, UNSPECIFIED 1 completed [facility] 12/28/2023 16:20:43 SARS-COV-2 (COVID-19) vaccine, UNSPECIFIED 1 completed [facility] 12/28/2023 16:20:50 pneumococcal polysaccharide PPV23 1 completed [facility] 12/28/2023 16:21:57 SARS-COV-2 (COVID-19) vaccine, UNSPECIFIED 1 completed [facility] 12/28/2023 16:22:45 Past Encounters Encounter ID Performer Location Encounter Start Date Encounter Closed Date Diagnosis/Indication Diagnosis SNOMED-CT Code Diagnosis ICD10 Code Diagnosis IMO Codes Diagnosis Note [id number] SCOTT NOBLES AMELIA [address] [place] [address] [place] [address] 08/20/2023 09:52:59 08/31/2023 13:27:41 Bacteremia 0761845 R78.81 flush picc qshiftcefa zolin 1 gm bid to 2/2followu p with vascular as planned Type 2 tiara betes mellitus 76199213 E11.9 humulin/re g 70/30 50 units bidmonitor glucose Chronic ki dney disease 523192615 N18.9 monitor labsavoid nephrotoxi c meds Gastroesop hageal reflux disease without esophagitis 738413597 K21.9 mag ox 400 mg daily to 8omepraz ole 20 mg daily Gout 79747883 M10.9 allopurino l 100 mg dailyD3 1250 h98uvrz Hyperlipidemia 22177542 E78.5 fenofibrat e 160 mg daily Hypothyroidism 35752829 E03.9 hx of Essential hypertension 48305791 I10 lasix 20 mg dailyhydra lazine 25 mg bidtoprol 25 mg dailymonit or bplisinopr il stopped in hospital [id number] ALVARADO DEL CID NP [facility] [address] [place] [address] [place] [address] 08/24/2023 13:44:02 08/25/2023 03:52:21 Type 2 diabetes mellitus 59735107 E11.9 humulin/re g 70/30 50 units bidmonitor glucose Bacteremia 9894954 R78.8 1 flush picc qshiftcefa zolin 1 gm bid to 2/2followu p with vascular as planned [id number] Janee Davis MD [address] [place] [address] 08/24/2023 15:18:19 08/31/2023 14:10:55 Type 2 diabetes mellitus 67889768 E11.9 With some hypoglycem ia.Humulin 70/30 was lowered from 50 units BID to 25U BID and SSI continued. Monitor fingerstic ks, will change from TID to qid, with low dose SS at hs.HgA1C was 6.7 inpt. Bacteremia 8728556 R78.8 1 As above Osteomyeli tis of right foot 3159699695 394009 M86.271 S/P I&D and debridemen t. Vasc. surgeon (Dr. Friedman) felt that all diseased bone was removed.Co ntinue cefazolin 1 gm IV BID until 09/24 to complete 6 wk course.Con tinue wound care as ordered.F/ U with Dr. Friedman as planned. Chronic ki dney disease 420924303 N18.32 Back to baseline.C ontinue to avoid nephrotoxi c meds as able.Monit or labs.Renal consult prn. Gastroesop hageal reflux disease without esophagitis 738285478 K21.9 No current sxs.Contin ue omeprazole 20 mg qdMonitor sxs. Gout 01495860 M10.09 No current sxs.Contin ue allopurino l 100 mg qdMonitor for flare. Hyperlipidemia 78097823 E78.49 Continue fenofibrat e 160 mg qdMonitor as outpt. Hypothyroidism 95500187 E03.8 In hx.TSH WNL in 11/2022Moni tor as outpt Essential hypertension 19265931 I10 BP borderline at times, but acceptable for age.BP goal for this elderly woman is permissive HTN, with SBP<150 and DBP<90Cont inue lasix 20 mg qd, hydralazin e 25 mg BID and metoprolol 25 mg qd.Monitor BP and labs.No need to restart lisinopril at this time Hypomagnesemia 358469210 E83.42 Continue Mg+ 400 mg qd until 08/30, then recheck level Vitamin D deficiency 347 25511 E55.9 Continue ergocalcif denisse 50,000 IU every 14 days.Monit or levels [id number] TATI CURRIE [address] [address] 08/31/2023 11:38:57 09/08/2023 12:37:11 Bacteremia 7554584 R78.81 continuece fazolin 1 gm bid to 2ollow up with vascular Type 2 tiara betes mellitus 16531391 E11.9 200-280's mainlyhumu mahesh/reg 70/30 50 units bidmonitor glucose Chronic ki dney disease 748301326 N18.9 monitor labsavoid nephrotoxi c meds Gastroesop hageal reflux disease without esophagitis 864645598 K21.9 mag ox 400 mg daily to 08/30omepraz ole 20 mg daily Gout 69677977 M10.9 allopurino l 100 mg dailyD3 1250 g71wcxt Hyperlipidemia 07313197 E78.5 fenofibrat e 160 mg daily Hypothyroidism 28283993 E03.9 hx of Essential hypertension 82787307 I10 lasix 20 mg dailyhydra lazine 25 mg bidtoprol 25 mg dailymonit or bplisinopr il stopped in hospital [id number] TATI CURRIE [address] [address] 09/02/2023 09:40:27 09/08/2023 13:38:51 Bacteremia 4196449 R78.81 continueMS SA right footcefazo mahesh 1 gm bid to 22follow up with vascular Type 2 tiara betes mellitus 51450741 E11.9 200-280's mainlychan ged back to humulin/re g 70/30 50 units bidmonitor glucose Osteomyeli tis of right foot 3038065794 706708 M86.271 S/P I&D and debridemen t. Vasc. surgeon (Dr. Friedman) felt that all diseased bone was removed.Co ntinue cefazolin 1 gm IV BID until 2/ to complete 6 wk course.Con tinue wound care as ordered.F/ U with Dr. Friedman as planned. Edema of l ower extremity 056616443 R60.0 chronic BLEright greater than left [id number] TATI CURRIE [address] [address] 09/07/2023 13:02:41 09/13/2023 15:17:43 Bacteremia 7134206 R78.81 continueMS SA right footcefazo mahesh 1 gm bid to 2ollow up with vascular Type 2 tiara betes mellitus 39208288 E11.9 lispro SSChumulin /reg 70/30 50 units bidmonitor glucose Osteomyeli tis of right foot 2429783107 834456 M86.271 S/P I&D and debridemen t. Vasc. surgeon (Dr. Friedman) felt that all diseased bone was removed.Co ntinue cefazolin 1 gm IV BID until 2 to complete 6 wk course.Con tinue wound care as ordered.F/ U with Dr. Friedman as planned. Edema of l ower extremity 091025652 R60.0 chronic BLEright greater than left [id number] TATI CURRIE [address] [address] 09/10/2023 06:52:27 09/15/2023 13:31:46 Bacteremia 5408393 R78.81 continueMS SA right footcefazo mahesh 1 gm bid to 2ollow up with vascular Type 2 tiara betes mellitus 86277613 E11.9 I spoke with patient today. previously [...] bidmonitor glucose Osteomyeli tis of right foot 7101768240 431997 M86.271 S/P I&D and debridemen t. Vasc. surgeon (Dr. Friedman) felt that all diseased bone was removed.Co ntinue cefazolin 1 gm IV BID until 2/2 to complete 6 wk course.Con tinue wound care as ordered.F/ U with Dr. Friedman as planned. Edema of l ower extremity 109270526 R60.0 chronic BLEright greater than left [id number] TATI CURRIE [address] [address] 09/14/2023 07:53:08 09/17/2023 08:57:48 Bacteremia 9162006 R78.81 continueMS SA right footcefazo mahesh 1 gm bid to 2/2follow up with vascular Type 2 tiara betes mellitus 92121071 E11.9 I spoke with patient today. previously [...] bidmonitor glucose Osteomyeli tis of right foot 1000280975 444271 M86.271 S/P I&D and debridemen t. Vasc. surgeon (Dr. Friedman) felt that all diseased bone was removed.Co ntinue cefazolin 1 gm IV BID until 2/2 to complete 6 wk course.Con tinue wound care as ordered.F/ U with Dr. Friedman as planned. Edema of l ower extremity 436170168 R60.0 chronic BLEright greater than left [id number] TATI CURRIE [address] [address] 09/17/2023 08:23:28 09/22/2023 11:50:26 Bacteremia 0254350 R78.81 continueMS SA right footcefazo mahesh 1 gm bid to 2/2follow up with vascular Type 2 tiara betes mellitus 43851461 E11.9 lispro SSChumulin /reg 70/30 30 units bidmonitor glucose Osteomyeli tis of right foot 2709164001 680797 M86.271 S/P I&D and debridemen t. Vasc. surgeon (Dr. Friedman) felt that all diseased bone was removed.Co ntinue cefazolin 1 gm IV BID until 09/24 to complete 6 wk course.Con tinue wound care as ordered.F/ U with Dr. Friedman as planned. Edema of l ower extremity 978482622 R60.0 chronic BLEright greater than left [id number] TATI CURRIE [address] [place] [address] 09/21/2023 07:59:18 09/29/2023 08:59:51 Bacteremia 7681542 R78.81 continueDC SA right footcefazo mahesh 1 gm bid to 2/ollow up with vascular Type 2 tiara betes mellitus 62049044 E11.9 lispro SSChumulin /reg 70/30 30 units bidmonitor glucose Osteomyeli tis of right foot 4180177595 170849 M86.271 S/P I&D and debridemen t. Vasc. surgeon (Dr. Friedman) felt that all diseased bone was removed.Co ntinue cefazolin 1 gm IV BID until 09/24 to complete 6 wk course.Con tinue wound care as ordered.F/ U with Dr. Friedman as planned. Edema of l ower extremity 439853180 R60.0 chronic BLEright greater than left [id number] TATI CURRIE [address] [place] [address] 09/24/2023 12:21:41 09/29/2023 13:31:08 Bacteremia 4137148 R78.81 resolved Type 2 tiara betes mellitus 19854204 E11.9 humulin/re g 70/30 50 units bid Chronic ki dney disease 381901511 N18.9 monitor labsavoid nephrotoxi c meds Gastroesop hageal reflux disease without esophagitis 738989934 K21.9 mag ox 400 mg daily to 08/30omepraz ole 20 mg daily Gout 31805443 M10.9 allopurino l 100 mg dailyD3 1250 y33mwui Hyperlipidemia 67787553 E78.5 fenofibrat e 160 mg daily Hypothyroidism 99782558 E03.9 TSH WNL in 11/2022Moni tor as outptcurre ntly not on medication . Essential hypertension 52460023 I10 lasix 20 mg dailyhydra lazine 25 mg bidtoprol 25 mg daily Osteomyeli tis of right foot 8205759274 892620 M86.271 S/P I&D and debridemen t. Vasc. surgeon (Dr. Friedman) felt that all diseased bone was removed.co mpleted IV cefazolin 1 gm IV BID 09/24/23Cont inue wound care as ordered.F/ U with Dr. Friedman as planned. Hypomagnesemia 956653956 E83.42 monitor outpt labs Vitamin D deficiency 347 04448 E55.9 Continue ergocalcif denisse 50,000 IU every 14 days.Monit or levels [id number] Janee Davis MD [address] [address] 12/28/2023 15:33:48 01/13/2024 12:52:53 Chronic diastolic heart failure 516301786 I50.32 Appears euvolemic. Continue furosemide 40 mg qd and hydralazin e 25 mg BID.Monito r resp. status, fluid status, wts and labs. Paroxysmal atrial fibrillation 867863400 I48.0 Rate in good control on diltiazem 120 mg qd.Continu e eliquis 5 mg BID for AC.Monitor HR and bleeding risk. Type 2 tiara betes mellitus 83454061 E11.9 This AM FBS was 88. Last time she was here fastings tended to be ok, but with high sugars later in the day.HgA1C was 7.1 this AMContinue Humulin 70/30 20U BID and SSI.Monito r fingerstic ks TID Chronic ki dney disease 445068208 N18.32 Back to baseline.C ontinue to avoid nephrotoxi c meds as able.Monit or labs.Renal consult prn. Essential hypertension 69207250 I10 BP borderline at times, but acceptable for age.BP goal for this elderly woman is permissive HTN, with SBP<150 and DBP<90Cont inue meds as above.Rebeca tor BP and labs. Gastroesop hageal reflux disease without esophagitis 758366913 K21.9 No current sxs.Contin ue omeprazole 20 mg qdMonitor sxs. Gout 46980234 M10.09 No current sxs.Contin ue allopurino l 100 mg qdMonitor for flare. Hyperlipidemia 67806805 E78.49 Continue fenofibrat e 160 mg qdMonitor as outpt. Hypothyroidism 31647410 E03.8 In hx.TSH WNL inpt.Monit or as outpt Hypomagnesemia 327236814 E83.42 Continue Mg+ 400 mg BID.Monito r levels Vitamin D deficiency 347 70766 E56.8 Vit D supplement is ordered as cholecalci ferol 5000 IU every 14 days.Is supposed to be ergocalcif denisse 50,000 IU qd, will change.Mon itor levels Anemia 231892466 D64.89 Multifacto rial.Follo ws with Dr. White and gets procrit every few wks (has been irregular due to hospitaliz ations).Mo nitor labs Closed bim alleolar fracture of right ankle 8361514482 9766287 S82.841D Four wks from original injury.Con tinue PT/OT for strengthen ing, balance, gait training, safety and function.C ontinue APAP 1000 mg q 4 hrs prn, NTE 3000 mg/dContin ue fall precaution s.Monitor for safety.F/U with ortho as planned. [id number] ATTI CURRIE [address] [place] [address] rd [place] [address] 01/03/2024 13:24:31 01/05/2024 10:19:57 Chronic diastolic heart failure 213567674 I50.32 continue lasix 40 mg dailyconti nue potassium 20 meq daily Paroxysmal atrial fibrillation 815288442 I48.0 Cardizem 120 mg dailyconti nue eliquis 2.5 mg BID Type 2 tiara betes mellitus 48760474 E11.9 With some hypoglycem ia.continu e Humulin 70/30 20 units BID and SSI continued. continue fingerstic ks QID Essential hypertension 34762102 I10 BP goal for this elderly woman is permissive HTN, with SBP<150 and DBP<90Cont inue lasix 40 mg qd, hydralazin e 25 mg BID lasix 40 mg dailyMonit or BP and labs. Open wound of left lower leg 9891443783 6167781 S81.802A patient son reports that she gets wound care at [facility] and she suppose to have calcium alginate and zinc applied to and around left lower extremity wound. He wants this to continue until wound MD can eval.wound MD alarcon and treatwill ordered to cleanse wound with NS apply calcium alginate and zinc ben wound. [id number] TATI CURRIE [address] [address] 01/07/2024 14:10:11 01/10/2024 13:39:22 Open wound of left lower leg 5467011684 6079937 S81.802A patient son reports that she gets wound care at [facility] and she suppose to have calcium alginate and zinc applied to and around left lower extremity wound. He wants this to continue until wound MD can eval.wound MD alarcon and treatwill ordered to cleanse wound with NS apply calcium alginate and zinc ben wound. Chronic di astolic heart failure 201459834 I50.32 continue lasix 40 mg dailyconti nue potassium 20 meq daily Paroxysmal atrial fibrillation 233581290 I48.0 Cardizem 120 mg dailyconti nue eliquis 2.5 mg BID Type 2 tiara betes mellitus 56275389 E11.9 With some hypoglycem ia.continu e Humulin 70/30 20 units BID and SSI continued. continue fingerstic ks QID Essential hypertension 63567826 I10 BP goal for this elderly woman is permissive HTN, with SBP<150 and DBP<90Cont inue lasix 40 mg qd, hydralazin e 25 mg BID lasix 40 mg dailyMonit or BP and labs. [id number] TATI CURRIE [address] [address] 01/11/2024 10:33:27 01/13/2024 16:16:44 Open wound of left lower leg 3875078462 5429753 S81.802A patient son reports that she gets wound care at [facility] and she suppose to have calcium alginate and zinc applied to and around left lower extremity wound. He wants this to continue until wound can dorian.wound MD alarcon and quinton ordered to cleanse wound with NS apply calcium alginate and zinc ben wound. Chronic di astolic heart failure 162577313 I50.32 continue lasix 40 mg dailyconti nue potassium 20 meq daily Paroxysmal atrial fibrillation 919399401 I48.0 Cardizem 120 mg dailyconti nue eliquis 2.5 mg BID Type 2 tiara betes mellitus 83395372 E11.9 With some hypoglycem ia.continu e Humulin 70/30 20 units BID and SSI continued. continue fingerstic ks QID Essential hypertension 94458547 I10 BP goal for this elderly woman is permissive HTN, with SBP<150 and DBP<90Cont inue lasix 40 mg qd, hydralazin e 25 mg BID lasix 40 mg dailyMonit or BP and labs. Anemia 528996474 D64.89 H/H trending down this weekstarte d procrit 10/16 and scheduled for bi weeklyunsu re when she last receivedwi ll follow up with patient son. [id number] TATI CURRIE [address] [place] [address] 01/13/2024 10:07:39 01/25/2024 10:52:36 Open wound of left lower leg 8942184994 [id number] S81.802A patient son reports that she gets wound care at [facility] and she suppose to have calcium alginate and zinc applied to and around left lower extremity wound. He wants this to continue until wound can eval.wound MD alarcon and quinton ordered to cleanse wound with NS apply calcium alginate and zinc ben wound. Chronic di astolic heart failure 806645192 I50.32 continue lasix 40 mg dailyconti nue potassium 20 meq daily Paroxysmal atrial fibrillation 429760502 I48.0 Cardizem 120 mg dailyconti nue eliquis 2.5 mg BID Type 2 tiara betes mellitus 74745266 E11.9 With some hypoglycem ia.continu e Humulin 70/30 20 units BID and SSI continued. continue fingerstic ks QID Essential hypertension 57490738 I10 BP goal for this elderly woman is permissive HTN, with SBP<150 and DBP<90Cont inue lasix 40 mg qd, hydralazin e 25 mg BID lasix 40 mg dailyMonit or BP and labs. Anemia 066169495 D64.89 HX of normochrom ic normocytic anemiaH/H trending down this week - tends to fluctuates tarted procrit 78479 10/16 and scheduled for bi weeklyRece ived doses on 10/27, 11/10, 11/24, 12/19 and 01/11/24 Bimalleola r fracture of ankle 991620184 S82.841A chronic with [facility] arthropath y with deformity ankle and midfoothx of infection with osteomyeli tis August 2023follow ed by [facility]- last seen on 01/07/24- recommend 2 tx option 1.conserva tive treatment wit off loading as much as possible, wear heel protector boot.2. Surgical reconstruc tion [id number] SHAE MOSELEY, [employer] [employer] [facility] [address] [place] [address] 01/20/2024 09:44:29 01/25/2024 11:59:00 Open wound of left lower leg 2937631322 7614932 S81.802A continue calcium alginate and zinc left lower extremity woundwound MD alarcon and quinton ordered to cleanse wound with NS apply calcium alginate and zinc ben wound. Chronic di astolic heart failure 779477235 I50.32 stablecont inue lasix 40 mg dailyconti nue potassium 20 meq daily Paroxysmal atrial fibrillation 913867192 I48.0 HR 69Cardizem 120 mg dailyconti nue eliquis 2.5 mg BID Type 2 tiara betes mellitus 12305456 E11.9 With some hypoglycem ia.continu e Humulin 70/30 20 units BID and SSI continued. 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 Surgical reconstruc tion [id number] TATI CURRIE [address] [address] 01/25/2024 10:02:09 01/31/2024 15:51:53 Open wound of left lower leg 6157425052 9940514 S81.802A continue calcium alginate and zinc left lower extremity woundwound MD alarcon and treatwill ordered to cleanse wound with NS apply calcium alginate and zinc ben wound. Chronic di astolic heart failure 305964197 I50.32 continue lasix 40 mg dailyconti nue potassium 20 meq daily Paroxysmal atrial fibrillation 876695862 I48.0 Cardizem 120 mg dailyconti nue eliquis 2.5 mg BID Type 2 tiara betes mellitus 54925603 E11.9 no recent hypoglycem ic events.con tinue Humulin 70/30 20 units BID and SSI continued. 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 Surgical reconstruc tion [id number] TATI CURRIE [address] [address] 01/28/2024 15:29:14 02/01/2024 08:26:24 Open wound of left lower leg [id number] 4982894 S81.802A [facility] with NS apply calcium alginate and zinc ben wound.elev ate left foot/heel when sitting to keep DTI well perfused Chronic di astolic heart failure 222068259 I50.32 continue lasix 40 mg dailyconti nue potassium 20 meq daily Paroxysmal atrial fibrillation 926539073 I48.0 Cardizem 120 mg dailyconti nue eliquis 2.5 mg BID Type 2 tiara betes mellitus 01754288 E11.9 no recent hypoglycem ic events.con tinue Humulin 70/30 20 units BID and SSI continued. continue fingerstic ks QID Anemia 517820010 D64.89 recent labs stable,HX of normochrom ic normocytic anemiacont inue procrit 01341 10/16 and scheduled for bi weekly Bimalleola r fracture of ankle 144182139 S82.841A she gets wound care [facility] was seen on 01/23 and will f/u in 2 weeksconti nue with current dressing change. 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 Surgical reconstruc tion [id number] TATI CURRIE [address] [facility] [place] [address] 02/01/2024 10:24:39 02/04/2024 08:49:56 Open wound of left lower leg [id number] 6404398 S81.802A continue to cleanse wound with NS apply calcium alginate and zinc ben wound.elev ate left foot/heel when sitting to keep DTI well perfused Chronic di astolic heart failure 016849148 I50.32 continue lasix 40 mg dailyconti nue potassium 20 meq daily Paroxysmal atrial fibrillation 702778682 I48.0 Cardizem 120 mg dailyconti nue eliquis 2.5 mg BID Type 2 tiara betes mellitus 32129514 E11.9 no recent hypoglycem ic events.con tinue Humulin 70/30 20 units BID and SSI continued. continue fingerstic ks QID Anemia 235019523 D64.89 recent labs stable,HX of normochrom ic normocytic anemiacont inue procrit 85133 10/16 and scheduled for bi weekly Bimalleola r fracture of ankle 963609967 S82.841A She gets [facility] care [facility] was seen on 01/23 and will f/u in 2 weeksconti nue with current dressing change. 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 Surgical reconstruc tion Chronic ki dney disease 109052309 N18.32 monitor labsavoid nephrotoxi c meds Essential hypertension 87539238 I10 blood pressure has been stable 120-130sBP goal for this elderly woman is permissive HTN, with SBP<150 and DBP<90Cont inue lasix 40 mg qd, hydralazin e 25 mg BID lasix 40 mg dailyMonit or BP and labs. Gout 59617758 M10.09 allopurino l 100 mg dailynot reported recent flare up. [id number] TATI CURRIE [address] [place] [address] 02/04/2024 09:44:41 02/07/2024 14:37:26 Open wound of left lower leg [id number] 9353485 S81.802A continue to cleanse wound with NS apply calcium alginate and zinc ben wound.elev ate left foot/heel when sitting to keep DTI well perfused Chronic di astolic heart failure 394294765 I50.32 euvolemicc ontinue lasix 40 mg dailyconti nue potassium 20 meq daily Paroxysmal atrial fibrillation 142302790 I48.0 Cardizem 120 mg dailyconti nue eliquis 2.5 mg BID Type 2 tiara betes mellitus 02801396 E11.9 BGLs mainly under 200's, a few noted in the 400s. patient and son are very particular about insulin dosing, so will not adjust.con tinue Humulin 70/30 20 units BID and SSI continued. continue fingerstic ks QID Anemia 506122101 D64.89 continue procrit 97919 224 and scheduled for bi weekly Bimalleola r fracture of ankle 093110037 S82.841A She gets wound care [facility] was seen on 01/23 and [...] protector boot.2. Surgical reconstruc tion Essential hypertension 12378425 I10 BP goal for this elderly woman is permissive HTN, with SBP<150 and DBP<90Cont inue lasix 40 mg qd, hydralazin e 25 mg BID lasix 40 mg dailyMonit or BP and labs. [id number] TATI CURRIE [address] [place] [address] 02/07/2024 11:53:48 02/09/2024 16:49:24 Open wound of left lower leg [id number] 6630422 S81.802A continue to cleanse wound with NS apply calcium alginate and zinc ben wound.elev ate left foot/heel when sitting to keep DTI well perfused Chronic di astolic heart failure 142354602 I50.32 continue lasix 40 mg dailyconti nue potassium 20 meq daily Paroxysmal atrial fibrillation 036717612 I48.0 Cardizem 120 mg dailyconti nue eliquis 2.5 mg BID Type 2 tiara betes mellitus 40999539 E11.9 continue Humulin 70/30 20 units BID and SSI continued. continue fingerstic ks QID Anemia 699590145 D64.89 continue procrit 46638 2 and scheduled for bi weekly Essential hypertension 42755295 I10 Continue lasix 40 mg qd, hydralazin e 25 mg BID lasix 40 mg dailyMonit or BP and labs. [id number] TATI CURRIE [address] [address] 02/10/2024 09:22:17 02/16/2024 10:42:27 Open wound of left lower leg [id number] 2937500 S81.802A continue to cleanse wound with NS apply calcium alginate and zinc ben wound. PCC updatedele vate left foot/heel when sitting to keep DTI well perfused Chronic di astolic heart failure 453789432 I50.32 continue lasix 40 mg dailyconti nue potassium 20 meq daily Paroxysmal atrial fibrillation 983984847 I48.0 Cardizem 120 mg dailyconti nue eliquis 2.5 mg BID Type 2 tiara betes mellitus 47373724 E11.9 continue Humulin 70/30 20 units BID and SSI continued. continue fingerstic ks QIDno reported hypo/hyper glycemic events. Essential hypertension 35852135 I10 Continue lasix 40 mg qd, hydralazin e 25 mg BID lasix 40 mg dailyMonit or BP and labs. [id number] Janee Davis MD [address] [address] 02/14/2024 21:04:27 03/14/2024 07:28:32 Chronic diastolic heart failure 305188281 I50.32 Appears euvolemic. Continue lasix 40 mg qd and KCl 20 meq qd to prevent hypokalemi a.Monitor resp. status, fluid status, wts and labs. Paroxysmal atrial fibrillation 380104715 I48.0 Rate in good control on meds as above.Cont inue eliquis 2.5 mg BID for AC.Monitor HR and bleeding risk. Type 2 tiara betes mellitus 76637123 E11.9 In adequate control.Co ntinue Humulin 70/30 20U BID and SSIContinu e fingerstic ks QID Essential hypertension 31321280 I10 In good control.Co ntinue lasix 40 mg qd, hydralazin e 25 mg BID, diltiazem 120 mg qd, and lasix 40 mg qdMonitor BP and labs. 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 Essential hypertension 72931843 I10 Continue lasix 40 mg qd, hydralazin e 25 mg BID lasix 40 mg dailyMonit or BP and labs. Chronic di astolic heart failure 365878199 I50.32 continue lasix 40 mg dailyconti nue potassium 20 meq daily Paroxysmal atrial fibrillation 615529553 I48.0 Cardizem 120 mg dailyconti nue eliquis 2.5 mg BID Type 2 tiara betes mellitus 56104835 E11.9 continue Humulin 70/30 20 units BID and SSI continued. continue fingerstic ks QIDno reported hypo/hyper glycemic events. Chronic ki dney disease 330521034 N18.32 Back to baseline.C ontinue to avoid nephrotoxi c meds as able.Monit or labs.Renal consult prn. Closed bim alleolar fracture of right ankle 6651951834 5843861 S82.841D Continue APAP 1000 mg q 4 hrs prn, NTE 3000 mg/dContin ue fall precaution s.Monitor for safety.F/U with ortho Gastroesop hageal reflux disease without esophagitis 152280349 K21.9 Continue omeprazole 20 mg qd Gout 17559997 M10.09 Continue allopurino l 100 mg qdMonitor for flare. Hyperlipidemia 21807317 E78.49 Continue fenofibrat e 160 mg qdMonitor as outpt. Hypothyroidism 48532499 E03.8 not on medsTSH WNL inpt.Monit or as outpt Hypomagnesemia 079454300 E83.42 Continue Mg+ 400 mg BID.Monito r levels Vitamin D deficiency 347 77234 E56.8 ergocalcif denisse 50,000 IU qdMonitor levels Anemia 931185380 D64.89 Multifacto rial.justo nue procrit 80593 bi weekly Health Concerns Section Related Observation LastModified by Organization Detai ls LastModified Time None Recorded Concern Status LastModified by Organization Details LastModified Time None Recorded Advance Directives Directive Y: Payers Insurance Date Sequence Insurance Name Policy Number Policy Bravo Covered Member ID Bravo Member ID Guarantor Name 01/25/2024 1 [place] [employer] Susan Laurent [id number] Susan Laurent 03/14/2024 2 [place] [id number] Susan Laurent [id number] Susan Laurent Notes Date Note Type [...] her right ankle, most recently [place] [facility] [place].She initially presented to the [facility] on 11/26 after an unknown injury. Found to have an Acute displaced bimalleolar fracture with ankle mortise disruption. Complicated by chronic pain from right foot Charcot arthropathy. She was splinted and instructed in strict NWB status and d/c to [facility]. Of note she had just been dxed with new onset Afib on 11/24 and started on diltiazem and apixaban.Returned to [facility] on 12/13, several days after d/c from [facility], because of difficulty ambulating at home and unable to help her due to his own issues. D/C on 12/15 to [facility].Was sent to the [facility] on 12/17 because of SOB and [...] no acute nursing concerns. TATI CURRIE [address] [facility], [address], [place], [address], [facility] National Institutes of Health (NIH) 02/04/2024 11:01:05 02/07/2024 text/html ROS as noted [...] her right ankle, most recently at [facility] [place] a CHF exacerbation.She initially presented to the [facility] on 11/26 after an unknown injury. Found to have an Acute displaced bimalleolar fracture with ankle mortise disruption. Complicated by chronic pain from right foot Charcot arthropathy. She was splinted and instructed in strict NWB status and d/c to [facility]. Of note she had just been dxed with new onset Afib on 11/24 and started on diltiazem and apixaban.Returned to [facility] on 12/13, several days after d/c from [facility], because of difficulty ambulating at home and unable to help her due to his own issues. D/C on 12/15 to [facility].Was sent to the [facility] on 12/17 because of SOB and AMS.Labs and vitals were WNL (except Na+147 and BNP 222) CXR showed pulmonary edema with small pleural effusions. Neg for RSV/influenza and covid.EKG showed NSR and she was continued on diltiazem and apixaban.She was txed with IV lasix and K+A left dhillon wound was followed by wound care. TATI CURRIE [address] [facility], [address], [place], [address], [facility] National Institutes of Health (NIH) 02/07/2024 14:37:38 02/10/2024 text/html ROS as noted [...] and s/p MSSA sepsis. TATI CURRIE [address] [facility], [address], [place], [address], [employer] 02/10/2024 12:44:47 02/14/2024 text/html I am seeing this 88 yo woman for an acute visit today to f/u on RLE fx, ulcers and NWB status.Son has had concerns about mother refusing wound care and this is being addressed by nursing staff.She was seen at the [facility] [place] clinic on 02/06 and it was [...] s/p MSSA sepsis. Janee Davis MD [address] [facility], [address], [place], [address], [employer] 03/11/2024 19:10:29 02/18/2024 text/html This is an 88 yo woman due for discharge today. Patient has been in and out of rehabs and hosp since 11/26 when she broke her right ankle, most recently at [facility] for a CHF exacerbation.She initially presented to the [facility] on 11/26 after an unknown injury. Found to have a right Acute displaced bimalleolar fracture with ankle mortise disruption. Complicated by chronic pain from right foot Charcot arthropathy. She was splinted and instructed in strict NWB status and d/c to [facility]. Of note she had just been dxed with new onset Afib on 11/24 and started on diltiazem and apixaban.Returned to [facility] on 12/13, several days after d/c from [facility], because of difficulty ambulating at home and unable to help her due to his own issues. D/C on 12/15 to [facility].Was sent to the [facility] on 12/17 because of SOB and AMS.Labs and vitals were WNL (except Na+147 and BNP 222) CXR showed pulmonary edema with small pleural effusions. Neg for RSV/influenza and covid.EKG showed NSR and she was continued on diltiazem and apixaban.She was txed with IV lasix and K+A left dhillon wound was followed by wound care.She was transferred to [facility] was done on 12/23 [...] and s/p MSSA sepsis. TATI CURRIE [address] [facility], [address], [place], [address], [facility] - National Institutes of Health (NIH) 02/18/2024 14:26:35 OBGyn Episode No OBEpisode recorded.
--- OUTSIDE RECORDS SUMMARY | 2025-08-14 12:41 | XMS_ITS | Encounter Summary ---
Author Organization [facility] Address [address] [address] Phone Care Team Providers Care College Athletic Director Name Role Phone Christopher Zamudio MD Primary Care Provider [phone] Encounter Details Date Type Department Care Team (Late Contact Info) Description 08/10/2025 Orders Only [facility] [address] [address] Neo Rollins MD [facility] [address] Social History Tobacco Use Types [...] Office Visit [facility] [address] [address] Neo Rollins MD [address] [address] documented as of this encounter Visit Diagnoses Not on filedocumented in this encounter Care Teams College Athletic Director Relationship Specialty Start Date End Date Christopher Zamudio MD NPI: [id number] [place] [address] [address] [place] ID PCP - General 09/02/20 documented as of this encounter
--- OUTSIDE RECORDS SUMMARY | 2025-08-14 12:41 | XMS_ITS | Clinical Summary ---
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 History of malignant basal cell neoplasm of skin 01/27/2019 Overview (09/16/2022): lip Encounters Date Type Department Care Team Description 08/10/2025 Orders Only [facility] [address] [address] Neo Rollins MD 05/22/2025 Refill [facility] [address] [address] Neo Rollins MD from Last 3 Months [...] Visit [facility] [address] [facility] [address] [place] [address] Neo Rollins MD [address] [facility] [address] [place] [address] Health Maintenance Due Date Last [...] average glucose, using the formula of the E2M-Ebhsvbq Average Glucose study (ADAG), Diabetes Care, Vol.31,#8, Mar. 2007 04/18/2019 10:3 4 AM EDT Christopher Zamudio MD LAB BLOOD ORDERABLES Final Resu lt [place] from Last 3 Months or Most Recently Relevant to Health Maintenance Insurance [facility] Medicare Medicaid [place] Medicare [facility] Medicaid [place] Care Teams Licensed Midwife Relationship Specialty Start Date End Date Christopher Zamudio MD [address] [place], [place] PCP - General 09/02/20
--- OUTSIDE RECORDS SUMMARY | 2025-08-14 12:41 | XMS_ITS | Clinical Summary ---
Author Organization [address] [facility] Address [address] [place] [address] Phone Care Team Providers Care Qc Lab Technician Name Role Phone Christopher Zamudio MD Primary Care Provider [phone] Surgical History Surgery Date Site/Laterality Comments CHOLECYSTECTOMY PROCEDURE: HISTORICAL CHOLECYSTECTOMY; COMMENT: 1981 LEG SURGERY 1985 PROCEDURE: HISTORICAL LEG SURGERY; COMMENT: Vein ablation APPENDECTOMY PROCEDURE: HISTORICAL APPENDECTOMY; COMMENT: 1981 OTHER SURGICAL HISTORY 08/18/2023 Right PROCEDURE: [place] INCISION BONE CORTEX FOOT; COMMENT: right, 5th metatarsal OTHER SURGICAL HISTORY 08/18/2023 Right PROCEDURE: [place] BIOPSY BONE OPEN SUPERFICIAL; COMMENT: right, 5th proximal phalanx OTHER SURGICAL HISTORY 08/18/2023 Right PROCEDURE: [place] SECONDARY CLOSURE SURG WOUND/DEHSN XTNSV/COMP Medical History [...] (HCC); COMMENT: Seen at [facility]. 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
--- OUTSIDE RECORDS SUMMARY | 2025-08-14 12:41 | XMS_ITS | Clinical Summary ---
Author Organization [facility] Address [address] [place] [address] Phone Care Team Providers Care Fraud Prevention Analyst Name Role Phone Unknown, Unknown Primary Care [...] A & B HEALTH SAFETY NET FULL [employer] MEDEX SUPPLEMENT MEDICARE PART A & B [facility] FULL [employer] MEDEX SUPPLEMENT MEDICARE PART A & B [facility] FULL MEDEX SUPPLEMENT MEDICARE PART A & B [employer] FULL MEDEX SUPPLEMENT MEDICARE PART A & B [employer] FULL [employer] MEDEX SUPPLEMENT MEDICARE PART A & B [facility] FULL [employer] [place] MEDEX SUPPLEMENT MEDICARE PART A & B [facility] FULL Care Teams Fraud Prevention Analyst Relationship Specialty Start Date End Date Unknown, Unknown, PCP - General 12/21/18 Additional Source Comments The information contained in this document represents components of the legal health record. It is not the complete legal health record.[facility]
--- OUTSIDE RECORDS SUMMARY | 2025-08-14 12:41 | XMS_ITS | Patient Health Record ---
Author Organization [facility] Address [address] [facility] [address] [place] [address] Care Team Providers Care Machine Grainer Name Role Phone PriceWilber [phone] Reason For Referral No Information Plan Of Treatment No Information
== END 2025-08-14 11:18 | disposition home or self-care (01) ==
LOC: HO.LAB 11:17
PROVIDERS: Visit Provider Internal Medicine Medical Oncology
DX: N18.9 Chronic kidney disease, unspecified (principal); D63.1 Anemia in chronic kidney disease
CPT/HCPCS: 36415; 80053; 82728; 83540; 85025